=== PATIENT | male | born 1945 | race Two or more races ===

== ENCOUNTER → 2019-12-16 08:33 | Outpatient (BNVA) | payer MEDICARE, SELFPAY | PROVIDERS: PCP Family Medicine; Referring Provider Family Medicine; Visit Provider Nurse Practitioner Gerontology | DX: E11.22 Type 2 diabetes mellitus with diabetic chronic kidney disease (principal); I12.9 Hypertensive chronic kidney disease with stage 1 through stage 4 chronic kidney disease, or unspecified chronic kidney disease; N18.30 Chronic kidney disease, stage 3 unspecified; E78.5 Hyperlipidemia, unspecified; Z79.4 Long term (current) use of insulin | CPT/HCPCS: 82947; 99213 ==

== ENCOUNTER → 2019-12-30 08:23 | Outpatient (BNVA) | payer MEDICARE, SELFPAY | PROVIDERS: PCP Family Medicine; Referring Provider Family Medicine; Visit Provider Nurse Practitioner Gerontology | DX: E11.22 Type 2 diabetes mellitus with diabetic chronic kidney disease (principal); I12.9 Hypertensive chronic kidney disease with stage 1 through stage 4 chronic kidney disease, or unspecified chronic kidney disease; N18.4 Chronic kidney disease, stage 4 (severe); E11.42 Type 2 diabetes mellitus with diabetic polyneuropathy; Z79.4 Long term (current) use of insulin; E78.5 Hyperlipidemia, unspecified | CPT/HCPCS: 82947; 99212 ==

== ENCOUNTER → 2020-01-13 08:10 | Outpatient (BNVA) | payer MEDICARE, SELFPAY | PROVIDERS: PCP Family Medicine; Referring Provider Family Medicine; Visit Provider Nurse Practitioner Gerontology | DX: Z76.89 Persons encountering health services in other specified circumstances (principal) ==

== ENCOUNTER → 2020-02-03 08:24 | Outpatient (BNVA) | payer MEDICARE, MEDICAID, SELFPAY | PROVIDERS: PCP Family Medicine; Visit Provider Nurse Practitioner Gerontology | DX: E11.22 Type 2 diabetes mellitus with diabetic chronic kidney disease (principal); I12.9 Hypertensive chronic kidney disease with stage 1 through stage 4 chronic kidney disease, or unspecified chronic kidney disease; N18.32 Chronic kidney disease, stage 3b; Z79.4 Long term (current) use of insulin; E78.5 Hyperlipidemia, unspecified; L60.8 Other nail disorders | CPT/HCPCS: 82947; 99212 ==

== ENCOUNTER → 2020-02-06 09:42 | Outpatient (BNVA) | payer MEDICARE, SELFPAY | PROVIDERS: PCP Family Medicine; Visit Provider Internal Medicine Gastroenterology | DX: Z13.89 Encounter for screening for other disorder (principal) | CPT/HCPCS: Q3014 ==

== ENCOUNTER → 2020-03-08 08:18 | Outpatient (BNVA) | payer MEDICARE, SELFPAY | PROVIDERS: PCP Family Medicine; Visit Provider Nurse Practitioner Gerontology | DX: E11.21 Type 2 diabetes mellitus with diabetic nephropathy (principal); E11.22 Type 2 diabetes mellitus with diabetic chronic kidney disease; I12.9 Hypertensive chronic kidney disease with stage 1 through stage 4 chronic kidney disease, or unspecified chronic kidney disease; N18.32 Chronic kidney disease, stage 3b; Z79.4 Long term (current) use of insulin; E78.5 Hyperlipidemia, unspecified; L60.8 Other nail disorders | CPT/HCPCS: 99212; Q3014 ==

== ENCOUNTER → 2020-05-03 08:38 | Outpatient (BNVA) | payer MEDICARE, SELFPAY | PROVIDERS: PCP Family Medicine; Visit Provider Nurse Practitioner Gerontology | DX: Z13.89 Encounter for screening for other disorder (principal) | CPT/HCPCS: Q3014 ==

== ENCOUNTER → 2020-07-30 10:46 | Outpatient (BNVA) | payer MEDICARE, SELFPAY | PROVIDERS: PCP Family Medicine; Visit Provider Internal Medicine Gastroenterology | DX: E46 Unspecified protein-calorie malnutrition (principal) | CPT/HCPCS: 99212 ==

== ENCOUNTER → 2020-08-09 08:49 | Outpatient (BNVA) | payer MEDICARE, SELFPAY | PROVIDERS: PCP Family Medicine; Visit Provider Nurse Practitioner Gerontology | DX: E11.21 Type 2 diabetes mellitus with diabetic nephropathy (principal); E11.22 Type 2 diabetes mellitus with diabetic chronic kidney disease; E11.42 Type 2 diabetes mellitus with diabetic polyneuropathy; I12.9 Hypertensive chronic kidney disease with stage 1 through stage 4 chronic kidney disease, or unspecified chronic kidney disease; N18.32 Chronic kidney disease, stage 3b; E78.5 Hyperlipidemia, unspecified; Z79.4 Long term (current) use of insulin | CPT/HCPCS: 82947; 99212 ==

== ENCOUNTER 2020-09-05 16:30 | Emergency (ER) | payer MEDICARE, SELFPAY ==
--- NOTE | ~2020-09-05 | CT_ITS ---
EXAMINATION: CT ABDOMEN AND PELVIS WITHOUT CONTRAST CLINICAL INFORMATION: Left-sided pain. Question stone versus diverticulitis. COMPARISON: Most recent CT abdomen/pelvis dated 04/08/2019. TECHNIQUE: Multidetector volumetric imaging was performed from the superior aspect of the liver through the pubic symphysis. Sagittal and coronal reformatted images were obtained on the technologist's workstation. This CT examination was performed using dose optimization techniques as appropriate, variously including the following: Automated exposure control. Adjustment of mA and/or kV according to patient size (this includes techniques or standardized protocols for targeted exams where dose is matched to indication/reason for exam; i.e. extremities or head). Use of iterative reconstruction technique. DLP: 522 mGy-cm FINDINGS: LUNG BASES: The visualized lung bases are unremarkable. LIVER, GALLBLADDER, AND BILIARY TREE: Hepatomegaly. Hepatic parenchymal hypoattenuation, consistent with steatosis. Normal contour. The gallbladder is completely distended with innumerable tiny stones. No associated inflammatory change. PANCREAS: Atrophic. No parenchymal lesion or associated inflammatory change. SPLEEN: Unremarkable. ADRENAL GLANDS: Unremarkable. KIDNEYS AND URETERS: The kidneys are normal in size, shape, and attenuation. No hydronephrosis, hydroureter, or calculi seen. Simple left upper pole renal cyst measuring 6.4 cm, unchanged. Findings are not clinically significant and no follow up imaging is recommended. No perinephric stranding. BLADDER: Nondistended and unremarkable. GASTROINTESTINAL TRACT: Small, sliding hiatal hernia. Descending and sigmoid colon diverticulosis. Left lower quadrant circumferential wall thickening and mild adjacent stranding, consistent with acute diverticulitis. No extraluminal air or organized fluid collection to suggest perforation or abscess formation. No small or large bowel obstruction. Unremarkable appendix. PERITONEAL CAVITY: No intra-abdominal free air or free fluid. No intra-abdominal mass or organized fluid collection/abscess formation. ABDOMINAL WALL: No significant hernia is appreciated. LYMPH NODES: No significant lymphadenopathy. VASCULAR: No abdominal aortic dilatation or dissection. Scattered atherosclerotic calcifications. PELVIC VISCERA: Prostatomegaly, unchanged. OSSEOUS STRUCTURES: Unremarkable. CT/CT abdomen pelvis wo con IMPRESSION: 1. Acute left lower quadrant descending colon/sigmoid diverticulitis. No evidence of perforation or abscess formation. 2. Small, sliding hiatal hernia. No small or large bowel obstruction. Unremarkable appendix. 3. Additional chronic findings are unchanged.
[2020-09-05 16:43] VITALS: BP 156/76; PULSE 81; RESP 18; TEMP 37.2; O2SAT 97; BMI 28.6
[2020-09-05 17:28] LABS: Hematocrit 39.2 % (42-52); Hemoglobin 12.9 g/dl (14.0-18.0); Mean Corpuscular HGB Conc 32.9 g/dl (31.0-36.0); Mean Corpuscular Hemoglobin 28.5 pg (27.0-33.0); Mean Corpuscular Volume 86.5 fL (80-98); Mean Platelet Volume 10.4 fL (9.4-12.4); Platelet Count 177 X10*3/uL (160-400); Red Blood Count 4.53 X10*6/uL (4.60-5.80); Red Cell Distribution Width 13.8 % (11.0-16.0); White Blood Count 8.8 X10*3/uL (4.8-10.8)
[2020-09-05 17:29] LABS: Glucose Urine UA NEG (NEG); Leukocyte Esterase Urine NEG (NEG); Nitrite Urine NEG (NEG); Specific Gravity - Urine 1.025 (1.005-1.025); Urine Blood NEG (NEG); Urine Ketones NEG (NEG); Urine Protein 2+ MG/DL (NEG-TRACE)
[2020-09-05 17:36] LABS: Appearance Urine CLEAR; Color Urine YELLOW
[2020-09-05 17:42] LABS: RBC Urine 0-2 /HPF (0); Squamous Epithelial Cell Urine 1+ /LPF; WBC Urine 0-2 /HPF (0-4)
[2020-09-05 17:47] LABS: Anion Gap 13 (12-20); Blood Urea Nitrogen 27 mg/dL (9-16); Calcium 9.2 mg/dL (8.4-10.2); Carbon Dioxide 21 mmol/L (22-29); Chloride 110 mmol/L (96-108); Creatinine Clr Calc Pharmacy 31.2; Estimated Glomerular Filt Rate 32; Glucose Random 223 mg/dL (60-115); Potassium 4.4 mmol/L (3.3-5.1); Sodium 140 mmol/L (135-145)
--- NOTE | 2020-09-05 20:35 | ED.ABDPAIN ---
HPI - Abdominal Pain General Chief Complaint: Back Pain/Injury Stated Complaint: ?Sciatica Time Seen by Provider: 09/05/20 20:25 Source: patient Mode of arrival: ambulatory Limitations: no limitations History of Present Illness HPI narrative: Patient with history of diverticulosis kidney stone diabetes complaining of pain in left lower abdomen and left lower back radiating to the left leg for last few days no spinal pain no injury to the back. No nausea no vomiting patient has been eating good having normal bowel movements no blood in the stool Related Data Home Medications Medication Instructions Recorded Confirmed amlodipine 10 mg tablet 10 mg PO DAILY 12/16/19 08/09/20 aspirin 81 mg tablet,delayed 81 mg PO DAILY 12/16/19 08/09/20 release atorvastatin 40 mg tablet 40 mg PO DAILY 12/16/19 08/09/20 chlorthalidone 25 mg tablet 25 mg PO DAILY 12/16/19 08/09/20 losartan 100 mg tablet 100 mg PO DAILY 12/16/19 08/09/20 methylcellulose (laxative) 500 mg 500 mg PO DAILY 12/16/19 08/09/20 tablet metronidazole 500 mg tablet 500 mg PO BID 12/16/19 08/09/20 sucralfate 1 gram tablet 1 g PO BID 12/16/19 08/09/20 metformin 500 mg tablet 500 mg PO BID 02/03/20 08/09/20 Previous Rx's Medication Instructions Recorded insulin lispro 100 unit/mL See Rx Instructions SUBCUT QID #45 06/20/20 subcutaneous pen ml bisacodyl 5 mg tablet,delayed 20 mg PO ONCE 1 Days #4 tab 07/30/20 release polyethylene glycol 3350 17 238 g PO ONCE #238 g 07/30/20 gram/dose oral powder insulin glargine U-300 conc 300 116 unit SUBCUT BEDTIME #13.5 ml 08/09/20 unit/mL (1.5 mL) subcutaneous pen pioglitazone 30 mg tablet 30 mg PO DAILY #30 tab 08/09/20 linagliptin 5 mg tablet 5 mg PO QAM #30 tab 08/31/20 pantoprazole 40 mg tablet,delayed 40 mg PO QAM #30 tab 09/01/20 release amoxicillin-pot clavulanate 1 tab PO BID #20 tab 09/05/20 [Augmentin] oxycodone 5 mg PO Q6H PRN #20 tab 09/05/20 Allergies Allergy/AdvReac Type Severity Reaction Status Date / Time No Known Allergies Allergy Mild N/A Verified 09/05/20 16:43 Review of Systems Review of Systems Constitutional : No Weight loss, No Fever, No Chills ENT/Mouth : No sore throat, No Rhinorrhea Eyes: No Eye Pain, No Swelling Cardiovascular : No Chest Pain, no palpitations Respiratory : No Cough, No Sputum, no shortness of breath Gastrointestinal : no Nausea, No Vomiting, No Diarrhea, + abdominal Pain, no black stools Genitourinary : No Dysuria, No Urinary Frequency Musculoskeletal : No joint pain, No Myalgias, No Joint Swelling Skin : No Skin Lesions, No rash Neuro : No Weakness, No Numbness, No Dizziness, No Headache Psych : No Anxiety/Panic, No Depression Heme/Lymph: No Bruising, No Lymphadenopathy Endocrine : No Polyuria, No Polydipsia All other systems reviewed and are negative Physical Exam Vital Signs: Vital Signs: Last Vital Signs Temp 98.4 F 09/05/20 23:34 Pulse 57 09/05/20 23:34 Resp 18 09/05/20 23:34 BP 136/52 L 09/05/20 23:34 Pulse Ox 96 09/05/20 23:34 Body Mass Index 28.6 Appearance: Alert. Oriented X3. No acute distress. Eyes: PERRLA, No Nystagmus ENT: Pharynx normal. Oral Mucosa moist Neck: Normal inspection. Neck supple. CVS: Normal heart rate and rhythm. Pulses normal. Respiratory: No respiratory distress. Equal air entry bilateral, no wheezing/rales/rhonchi Abdomen: Soft and deep tenderness left lower quadrant rebound tenderness or guarding Bowel sounds are present, no mass palpable, no CVA tenderness Skin: Skin warm and dry. Normal skin color. Normal skin turgor. Back: No focal spinal tenderness sciatic notch tenderness on the left side present SLR positive at 90 degrees right leg Extremities: No lower extremity edema. No calf tenderness Neuro: Oriented X 3. No motor deficit. No sensory deficit.No cerebellar signs , cranial nerves II-XII intact MDM - Abdominal Pain MDM Narrative Medical decision making narrative: Patient with uncomplicated diverticulitis with left sciatica with normal WBC count will give a dose of Zosyn IV and discharge him on Augmentin and pain medication Differential Diagnosis Differential diagnosis: Likely calculus of kidney and diverticulitis Medical Records Attestation: I reviewed the patient's medical records. Lab Data Attestation: I reviewed the patient's lab results. Result diagrams: 09/05/20 17:19 09/05/20 17:18 Labs: Lab Results 09/05/20 09/05/20 09/05/20 Range/Units 17:18 17:19 17:19 WBC 8.8 (4.8-10.8) X10*3/uL RBC 4.53 L (4.60-5.80) X10*6/uL Hgb 12.9 L (14.0-18.0) g/dl Hct 39.2 L (42-52) % MCV 86.5 (80-98) fL MCH 28.5 (27.0-33.0) pg MCHC 32.9 (31.0-36.0) g/dl RDW 13.8 (11.0-16.0) % Plt Count 177 (160-400) X10*3/uL MPV 10.4 (9.4-12.4) fL Absolute Nucleated RBC 0.000 (0.0-0.012) X10*3/uL Nucleated RBC % (auto) 0.0 (0.0-0.2) /100WBC Sodium 140 (135-145) mmol/L Potassium 4.4 (3.3-5.1) mmol/L Chloride 110 H (96-108) mmol/L Carbon Dioxide 21 L (22-29) mmol/L Anion Gap 13 (12-20) BUN 27 H (9-16) mg/dL Creatinine 2.03 H (0.5-1.4) mg/dL Estim Creat Clear Calc 31.2 Estimated GFR 32 Random Glucose 223 H (60-115) mg/dL Calcium 9.2 (8.4-10.2) mg/dL Urine Color YELLOW Urine Appearance CLEAR Urine pH 6.0 (5.0-8.0) Ur Specific [place] 1.025 (1.005-1.025) Urine Protein 2+ H (NEG-TRACE) MG/DL Urine Glucose (UA) NEG (NEG) MG/DL Urine Ketones NEG (NEG) MG/DL Urine Blood NEG (NEG) Urine Nitrite NEG (NEG) Ur Leukocyte Esterase NEG (NEG) Urine RBC 0-2 (0) /HPF Urine WBC 0-2 (0-4) /HPF Ur Squamous Epith Cells 1+ /LPF Urine Bacteria NONE /LPF Discharge Plan Discharge Clinical Impression: Diverticulitis Sciatica Qualifiers: Laterality: left Qualified Code(s): M54.32 - Sciatica, left side Patient Disposition: Home, Self-Care Instructions: Diverticulitis (ED), Sciatica (ED) Additional Instructions: Drink plenty of fluids , have liquids advance as tolerated Take pain medication as advised Antibiotic as advised Report to the ER if increased pain/fever/vomiting/blood in stool Prescriptions: New amoxicillin-pot clavulanate [Augmentin] 875-125 mg tablet 1 tab PO BID Qty: 20 RF: 0 oxycodone 5 mg tablet 5 mg PO Q6H PRN (Reason: Pain (Scale Score 7-10)) Qty: 20 RF: 0 No Action insulin lispro [Humalog KwikPen Insulin] 100 unit/mL insulin pen See Rx Instructions subcut QID Qty: 45 RF: 1 linagliptin [Tradjenta] 5 mg tablet 5 mg PO QAM Qty: 30 RF: 0 pantoprazole 40 mg tablet,delayed release (DR/EC) 40 mg PO QAM Qty: 30 RF: 5 polyethylene glycol 3350 [Miralax] 17 gram/dose powder 238 g PO ONCE Qty: 238 RF: 0 bisacodyl [Dulcolax (bisacodyl)] 5 mg tablet,delayed release (DR/EC) 20 mg PO ONCE 1 Days Qty: 4 RF: 0 losartan 100 mg tablet 100 mg PO DAILY RF: 0 atorvastatin 40 mg tablet 40 mg PO DAILY RF: 0 chlorthalidone 25 mg tablet 25 mg PO DAILY RF: 0 amlodipine 10 mg tablet 10 mg PO DAILY RF: 0 aspirin [Adult Aspirin Regimen] 81 mg tablet,delayed release (DR/EC) 81 mg PO DAILY RF: 0 sucralfate 1 gram tablet 1 g PO BID RF: 0 metronidazole 500 mg tablet 500 mg PO BID RF: 0 Citrucel 500 mg tablet 500 mg PO DAILY RF: 0 metformin 500 mg tablet 500 mg PO BID RF: 0 pioglitazone 30 mg tablet 30 mg PO DAILY Qty: 30 RF: 3 Toujeo SoloStar U-300 Insulin 300 unit/mL (1.5 mL) insulin pen 116 unit subcut BEDTIME Qty: 13.5 RF: 2 PMFSH Past Medical History Medical History BPH (benign prostatic hyperplasia) Carpal tunnel syndrome Cataracts, bilateral Chronic kidney disease, stage 3 Diverticulosis Erectile dysfunction Essential hypertension GERD (gastroesophageal reflux disease) Hyperlipidemia LDL goal <70 Kidney stones 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 Mother Diabetes mellitus Brother Diabetes mellitus Sister Diabetes mellitus Social History Social History Household Members: Spouse and Children Alcohol intake: never Patient Tobacco Use Status: Never used Tobacco Advance Directives: No Advance Directives Information Provided: No
[2020-09-05] MEDS: oxyCODONE HCl Immed Release 5 MG TABLET 10 MG PO (21:11)
[2020-09-05 21:14] VITALS: BP 163/58; PULSE 74; RESP 16; O2SAT 96
[2020-09-05] MEDS: Piperacillin Sodium/Tazobactam 3.375 GM in 0.9 % Sodium Chloride 50 ML IV (23:06)
[2020-09-05 23:34] VITALS: BP 136/52; PULSE 57; RESP 18; TEMP 36.9; O2SAT 96
== END 2020-09-06 00:09 | disposition home or self-care (01) ==
PROVIDERS: Emergency Provider Internal Medicine; PCP Family Medicine
DX: K57.32 Diverticulitis of large intestine without perforation or abscess without bleeding (principal); M54.32 Sciatica, left side; Z79.899 Other long term (current) drug therapy; Z79.82 Long term (current) use of aspirin
CPT/HCPCS: 36415; 74176; 80048; 81001; 85027; 96365; 99284; J2543

== ENCOUNTER → 2020-09-13 14:23 | Outpatient (BNVA) | payer MEDICARE, SELFPAY | PROVIDERS: PCP Family Medicine; Visit Provider Nurse Practitioner Gerontology | DX: E11.65 Type 2 diabetes mellitus with hyperglycemia (principal); E11.21 Type 2 diabetes mellitus with diabetic nephropathy; E11.42 Type 2 diabetes mellitus with diabetic polyneuropathy; E11.22 Type 2 diabetes mellitus with diabetic chronic kidney disease; I12.9 Hypertensive chronic kidney disease with stage 1 through stage 4 chronic kidney disease, or unspecified chronic kidney disease; N18.32 Chronic kidney disease, stage 3b; E78.5 Hyperlipidemia, unspecified; Z79.4 Long term (current) use of insulin; Z79.899 Other long term (current) drug therapy | CPT/HCPCS: 82947; 99212 ==

== ENCOUNTER 2020-10-26 09:40 | Emergency (ER) | payer MEDICARE, SELFPAY ==
[2020-10-26 10:18] VITALS: BP 161/74; PULSE 74; RESP 18; TEMP 36.6; O2SAT 97; BMI 29.7
[2020-10-26] MEDS: Fluorescein Sodium STRIP 1 STRIP EYE-RIGHT (11:13)
[2020-10-26] MEDS: Tetracaine HCl/PF 0.5% Oph Sol 4 ML DROPS 3 DROP EYE-RIGHT (11:14)
--- NOTE | 2020-10-26 11:47 | ED.GENADULT ---
HPI - General Adult General Chief complaint: Eye Problems Stated complaint: eye swelling Time Seen by Provider: 10/26/20 10:45 Source: patient Mode of arrival: ambulatory History of Present Illness HPI narrative: 75-year-old male a past medical history of BPH, cataracts, diverticulosis, GERD, HTN, renal stones, diabetes, HLD, presenting to the ED complaining of right eye redness and blurry vision since yesterday. Reports excessive sneezing the past couple days. Reports eye irritation. Denies known foreign body. Denies no trauma/injury/fall, visual, lightheadedness, nausea/vomiting. Does not were glasses or contacts. Onset (ago): day(s) Related Data Home Medications Medication Instructions Recorded Confirmed amlodipine 10 mg tablet 10 mg PO DAILY 12/16/19 09/13/20 aspirin 81 mg tablet,delayed 81 mg PO DAILY 12/16/19 09/13/20 release (Adult Aspirin Regimen) atorvastatin 40 mg tablet 40 mg PO DAILY 12/16/19 09/13/20 chlorthalidone 25 mg tablet 25 mg PO DAILY 12/16/19 09/13/20 losartan 100 mg tablet 100 mg PO DAILY 12/16/19 09/13/20 methylcellulose (laxative) 500 mg 500 mg PO DAILY 12/16/19 09/13/20 tablet (Citrucel) metronidazole 500 mg tablet 500 mg PO BID 12/16/19 09/13/20 sucralfate 1 gram tablet 1 g PO BID 12/16/19 09/13/20 metformin 500 mg tablet 500 mg PO BID 02/03/20 09/13/20 Previous Rx's Medication Instructions Recorded bisacodyl 5 mg tablet,delayed 20 mg PO ONCE 1 Days #4 tab 07/30/20 release (Dulcolax (bisacodyl)) polyethylene glycol 3350 17 238 g PO ONCE #238 g 07/30/20 gram/dose oral powder (Miralax) pioglitazone 30 mg tablet 30 mg PO DAILY #30 tab 08/09/20 pantoprazole 40 mg tablet,delayed 40 mg PO QAM #30 tab 09/01/20 release amoxicillin 875 mg-potassium 1 tab PO BID #20 tab 09/05/20 clavulanate 125 mg tablet (Augmentin) oxycodone 5 mg tablet 5 mg PO Q6H PRN #20 tab 09/05/20 empagliflozin 10 mg tablet 10 mg PO QAM #30 tab 09/13/20 (Jardiance) insulin glargine U-300 conc 300 110 unit SUBCUT BEDTIME #13.5 ml 09/13/20 unit/mL (1.5 mL) subcutaneous pen (Toujeo SoloStar U-300 Insulin) insulin lispro 100 unit/mL See Rx Instructions SUBCUT QID #45 10/06/20 subcutaneous pen (Humalog KwikPen ml (U-100) Insulin) linagliptin 5 mg tablet (Tradjenta) 5 mg PO QAM #30 tab 10/06/20 erythromycin 5 mg/gram (0.5 %) eye 0.5 inch OPHTHALMIC (EYE) QID 5 10/26/20 ointment Days #3.5 g Allergies Allergy/AdvReac Type Severity Reaction Status Date / Time No Known Allergies Allergy Mild N/A Verified 09/13/20 15:08 Review of Systems Review of Systems: Constitutional: No Fever, No Chills ENT/Mouth: No Ear Pain, No Nasal Congestion, No Hoarseness, No sore throat, + eye irritation,+ eye redness, + blurry vision Cardiovascular: No Chest Pain, No SOB Respiratory: No Cough Gastrointestinal: No Nausea, No Vomiting, No Abdominal pain Genitourinary:, No Dysuria, No Hematuria Musculoskeletal: No joint pain, No Myalgias Skin: No Skin Lesions, No rash Neuro: No Weakness, No Numbness, No Paresthesias Yes all other systems are reviewed and are negative [facility] Past Medical History Attestation statement: The following information was validated with the patient. 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 Mother Diabetes mellitus Brother Diabetes mellitus Sister Diabetes mellitus Social History Social History Household Members: Spouse and Children Alcohol intake: never Patient Tobacco Use Status: Never used Tobacco Advance Directives: No Physical Exam Vital Signs: Vital Signs: Last Vital Signs Temp 98 F 10/26/20 10:18 Pulse 74 10/26/20 10:18 Resp 18 10/26/20 10:18 BP 161/74 H 10/26/20 10:18 Pulse Ox 97 10/26/20 10:18 Body Mass Index 29.7 Const: General: cooperative, healthy appearing and no acute distress Orientation/consciousness: patient oriented x3 Limitations: no limitations HENMT: Head: Yes normal to inspection Ears: hearing grossly normal bilaterally General nose exam: Normal external nose present Face and sinus: Yes normal facial exam Eyes: Other: IOP 17, 16, 14 in the right eye General: appearance normal, both eyes and all related structures Conjunctivae: conjunctival abnormal right subconjunctival hemorrhage Corneas: corneas abnormal on the right fluorescein used and abrasion (@ 5o'clock); Negative for without ulcerations and fluorescein used Pupils: Equal, round and reactive pupils present EOM: EOMs intact bilaterally and no movement deficit Direct Ophthalmoscopy: normal light reflex and no photophobia Neck: Neck: Yes normal visual inspection, Yes no lymphadenopathy and Yes no meningeal signs Resp: Effort & Inspection: normal respiratory effort and no respiratory distress Cardio: Rate: regular rate Skin: Rashes: no rashes Wounds: no wounds Neuro: General: patient oriented x3 and no meningeal signs Cranial nerves: Yes Equal, round and reactive pupils present Gait exam (Neuro): Normal gait present Extrem: General: Yes normal to inspection Medical Decision Making [facility] Narrative Medical decision making narrative: 75-year-old male a past medical history of BPH, cataracts, diverticulosis, GERD, HTN, renal stones, diabetes, HLD, presenting to the ED complaining of right eye redness and blurry vision since yesterday. On exam VS, NAD, physical exam as above consistent with subconjunctival hemorrhage. No evidence of globe rupture or periorbital or orbital cellulitis. Small corneal abrasion appreciated in the right eye. Worrisome signs and symptoms and strict return precautions discussed with patient. Will discharge with erythromycin ointment and discussed ophthalmology follow-up, patient verbalized understanding Discharge Plan Discharge Clinical Impression: Subconjunctival hemorrhage Qualifiers: Laterality: right Qualified Code(s): H11.31 - Conjunctival hemorrhage, right eye Corneal abrasion Qualifiers: Encounter type: initial encounter Laterality: right Qualified Code(s): S05.01XA - Injury of conjunctiva and corneal abrasion without foreign body, right eye, initial encounter Patient Disposition: Home, Self-Care Instructions: Subconjunctival Hemorrhage (ED), Corneal Abrasion (ED) Additional Instructions: You have a small abrasion and your eye, Erythromycin ointment will help with this Avoid any increased pressure to her eyes/excessive sneezing, coughing, that is likely the cause of the bleeding If you develop any visual loss, worsening visual changes, headache, nausea/vomiting please return to the ED Please follow-up with ophthalmology Tiene jana coco?a abrasi?n y mcgraw hasmukh, la pomada de eritromicina le ayudar? con esto. Evite cualquier aumento de presi?n en madeline ojos / estornudos excesivos, tos, que probablemente sea la causa del sangrado. Si desarrolla alguna p?rdida visual, empeoramiento de los cambios visuales, dolor de kellie, n?useas / v?mitos, vuelva al servicio de urgencias. Por favor, daisy un seguimiento con oftalmolog?a. Prescriptions: New erythromycin 5 mg/gram (0.5 %) ointment 0.5 inch ophthalmic (eye) QID 5 Days Qty: 3.5 RF: 0 No Action pantoprazole 40 mg tablet,delayed release (DR/EC) 40 mg PO QAM Qty: 30 RF: 5 insulin lispro [Humalog KwikPen Insulin] 100 unit/mL insulin pen See Rx Instructions subcut QID Qty: 45 RF: 1 Tradjenta 5 mg tablet 5 mg PO QAM Qty: 30 RF: 0 amoxicillin-pot clavulanate [Augmentin] 875-125 mg tablet 1 tab PO BID Qty: 20 RF: 0 oxycodone 5 mg tablet 5 mg PO Q6H PRN (Reason: Pain (Scale Score 7-10)) Qty: 20 RF: 0 polyethylene glycol 3350 [Miralax] 17 gram/dose powder 238 g PO ONCE Qty: 238 RF: 0 bisacodyl [Dulcolax (bisacodyl)] 5 mg tablet,delayed release (DR/EC) 20 mg PO ONCE 1 Days Qty: 4 RF: 0 losartan 100 mg tablet 100 mg PO DAILY RF: 0 atorvastatin 40 mg tablet 40 mg PO DAILY RF: 0 chlorthalidone 25 mg tablet 25 mg PO DAILY RF: 0 amlodipine 10 mg tablet 10 mg PO DAILY RF: 0 aspirin [Adult Aspirin Regimen] 81 mg tablet,delayed release (DR/EC) 81 mg PO DAILY RF: 0 sucralfate 1 gram tablet 1 g PO BID RF: 0 metronidazole 500 mg tablet 500 mg PO BID RF: 0 Citrucel 500 mg tablet 500 mg PO DAILY RF: 0 metformin 500 mg tablet 500 mg PO BID RF: 0 pioglitazone 30 mg tablet 30 mg PO DAILY Qty: 30 RF: 3 Jardiance 10 mg tablet 10 mg PO QAM Qty: 30 RF: 6 Touvanessao SoloStar U-300 Insulin 300 unit/mL (1.5 mL) insulin pen 110 unit subcut BEDTIME Qty: 13.5 RF: 4 Referrals: Rashad Moon [Physician] - 3 days Print Language: Kazakh
== END 2020-10-26 12:10 | disposition home or self-care (01) ==
PROVIDERS: Emergency Provider Emergency Medicine; PCP Family Medicine
DX: H11.31 Conjunctival hemorrhage, right eye (principal); S05.01XA Injury of conjunctiva and corneal abrasion without foreign body, right eye, initial encounter; X58.XXXA Exposure to other specified factors, initial encounter; Y93.9 Activity, unspecified; Y92.9 Unspecified place or not applicable; Y99.9 Unspecified external cause status
CPT/HCPCS: 99283

== ENCOUNTER 2021-01-06 07:20 | Day surgery (SDC) | payer MEDICARE, SELFPAY ==
[2020-12-31 13:08] VITALS: BMI 27.2
--- NOTE | 2021-01-05 11:41 | HO.ANESPROP2 ---
Documented by User: Elaina Ogden NP 01/20/21 14:16 HPI - Anesthesia Eval Consult details Narrative: 75yo M for Colonoscopy [facility] Active Problems Active Problems: All Active Problems (Updated 10/27/20 @ 00:01 by Millie Alvarado) Type 2 diabetes mellitus with diabetic polyneuropathy (Acute) Malnutrition (Acute) Type 2 diabetes mellitus with chronic kidney disease (Acute) Chronic kidney disease, stage 3 (Acute) Essential hypertension (Acute) Hyperlipidemia LDL goal <70 (Acute) Past Medical History Medical History BPH (benign prostatic hyperplasia) Carpal tunnel syndrome Cataracts, bilateral Chronic kidney disease, stage 3 Diverticulosis Erectile dysfunction Essential hypertension GERD (gastroesophageal reflux disease) Hyperlipidemia LDL goal <70 Kidney stones 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 Mother Diabetes mellitus Brother Diabetes mellitus Sister Diabetes mellitus Surgical History Surgical History Hx of colonoscopy Hx of lithotripsy Social History Social History Household Members: Spouse and Children Alcohol intake: never Patient Tobacco Use Status: Never used Tobacco Meds Allergies Allergy/AdvReac Type Severity Reaction Status Date / Time No Known Allergies Allergy Mild N/A Verified 09/13/20 15:08 Home Medications Medication Instructions Recorded Confirmed Last Taken Type amlodipine 10 mg tablet 10 mg PO DAILY 12/16/19 09/13/20 Unknown History aspirin 81 mg tablet,delayed 81 mg PO DAILY 12/16/19 09/13/20 01/05/21 History release (Adult Aspirin Regimen) atorvastatin 40 mg tablet 40 mg PO DAILY 12/16/19 09/13/20 Unknown History chlorthalidone 25 mg tablet 25 mg PO DAILY 12/16/19 09/13/20 Unknown History losartan 100 mg tablet 100 mg PO DAILY 12/16/19 09/13/20 Unknown History methylcellulose (laxative) 500 mg 500 mg PO DAILY 12/16/19 09/13/20 Unknown History tablet (Citrucel) metronidazole 500 mg tablet 500 mg PO BID 12/16/19 09/13/20 Unknown History sucralfate 1 gram tablet 1 g PO BID 12/16/19 09/13/20 Unknown History metformin 500 mg tablet 500 mg PO BID 02/03/20 09/13/20 Unknown History Exam Exam Date and Time: January 05, 2021 1141 Height,Weight and Vital Signs: Height 5 ft 6 in Weight 76.657 kg Pertinent Lab Results Pertinent Lab Results: Laboratory Tests 09/05/20 09/05/20 17:18 17:19 WBC 8.8 Hgb 12.9 L Hct 39.2 L Plt Count 177 Sodium 140 Potassium 4.4 Chloride 110 H Carbon Dioxide 21 L BUN 27 H Creatinine 2.03 H Assessment and Plan Assessment Anesthesia Assessment: Chart Reviewed Documented by User: Aleah De La O MD 01/06/21 08:42 [facility] Past Medical History Medical History BPH (benign prostatic hyperplasia) Carpal tunnel syndrome Cataracts, bilateral Chronic kidney disease, stage 3 Diverticulosis Erectile dysfunction Essential hypertension GERD (gastroesophageal reflux disease) Hyperlipidemia LDL goal <70 Kidney stones 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 Mother Diabetes mellitus Brother Diabetes mellitus Sister Diabetes mellitus Surgical History Surgical History Hx of colonoscopy Hx of lithotripsy History of Problems with Anesthesia: No Social History Social History Household Members: Spouse and Children Alcohol intake: never Patient Tobacco Use Status: Never used Tobacco Meds Allergies Allergy/AdvReac Type Severity Reaction Status Date / Time No Known Allergies Allergy Mild N/A Verified 09/13/20 15:08 Home Medications Medication Instructions Recorded Confirmed Last Taken Type amlodipine 10 mg tablet 10 mg PO DAILY 12/16/19 09/13/20 Unknown History aspirin 81 mg tablet,delayed 81 mg PO DAILY 12/16/19 09/13/20 01/05/21 History release (Adult Aspirin Regimen) atorvastatin 40 mg tablet 40 mg PO DAILY 12/16/19 09/13/20 Unknown History chlorthalidone 25 mg tablet 25 mg PO DAILY 12/16/19 09/13/20 Unknown History losartan 100 mg tablet 100 mg PO DAILY 12/16/19 09/13/20 Unknown History methylcellulose (laxative) 500 mg 500 mg PO DAILY 12/16/19 09/13/20 Unknown History tablet (Citrucel) metronidazole 500 mg tablet 500 mg PO BID 12/16/19 09/13/20 Unknown History sucralfate 1 gram tablet 1 g PO BID 12/16/19 09/13/20 Unknown History metformin 500 mg tablet 500 mg PO BID 02/03/20 09/13/20 Unknown History Exam Airway Mallampati Class: III TM Dist: >3cm Neck ROM: Full Loose/Missing/Broken Teeth: No Heart: RRR Lungs: CTA Assessment and Plan Assessment Anesthesia Assessment: Anesthesia Plan Discussed Final Anesthetic Review History of Problems with Anesthesia: No NPO: Yes ASA Class: III Final Preanesthetic Review: Meds/Allgs Chart Reviewed, Consent Obtained/Reviewed and Anes Risks/Benef Reviewed
[2021-01-06 07:39] VITALS: BMI 26.9
[2021-01-06 07:48] LABS: Glucose, Whole Blood 71 mg/dL (60-115)
[2021-01-06 07:50] VITALS: BP 149/65; PULSE 69; RESP 16; TEMP 35.9; O2SAT 97
--- NOTE | 2021-01-06 07:58 | PC.NURSE ---
IV inserted by Samara Delgado RN
[2021-01-06] MEDS: 0.9 % Sodium Chloride 1,000 ML 50 ML IVCONT (08:14)
--- NOTE | 2021-01-06 08:22 | MHC.SHP ---
Pre-Procedural Eval Section A Date of Service: 01/06/21 Section B Chief Complaint: malnutrition Relevant Family History (Specify if Yes): No Relevant Social History: None Present Medications: see Short Stay Collaborative assessment Medical History: Significant History (BPH (benign prostatic hyperplasia) Carpal tunnel syndrome Cataracts, bilateral Chronic kidney disease, stage 3 Diverticulosis Erectile dysfunction Essential hypertension GERD (gastroesophageal reflux disease) Hyperlipidemia LDL goal <70 Kidney stones Type 2 diabetes mellitus with chronic kidney dise) History of Previous Operations: Relevant previous surgery/procedure and date(s) (lithotripsy) Allergies: Allergies Allergy/AdvReac Type Severity Reaction Status Date / Time No Known Allergies Allergy Mild N/A Verified 09/13/20 15:08 Review of Systems Sugical H&P ROS: Negative: Constitution, Cardiovascular, Respiratory, Neurological, Psychiatric, Hem-Onc, Allergic/Immunologic, Gastrointestinal, Genitourinary, Musculoskeletal, Integumentary, Endocrine and Eyes/Ears/Nose/Throat Exam Surgical H&P Exam: Normal: HEENT, Normal: Heart, Normal: Lungs, Normal: Extremities, Normal: Abdomen, Normal: Skin and Normal: Neurological Plan Diagnosis/Plan: Unchanged I have reviewed the history and physical and performed a pertinent physical examination on my patient. No changes have occurred unless specified.
--- NOTE | 2021-01-06 08:23 | P.BOP_ITS ---
Brief Operative Note Date of Service: 01/06/21 Pre-op diagnosis: weight loss, prior colonoscopy with poor prep Post-op diagnosis: same Procedure: see op note Surgeon: Lorraine Sands MD Anesthesia: MAC Was an [employer] Fuel Injection Servicer used for this Procedure?: No Estimated blood loss (mL): 0 Condition: stable Disposition: PACU
--- NOTE | 2021-01-06 08:23 | W.PM.OPN ---
Operative Note Operative Note Date of Service: 01/06/21 Narrative: Operative Information Procedure Description: Colonoscopy COLONOSCOPY Instrument: Olympus variable stiffness adult scope 190L Colonoscopy Monitoring: Vital signs and clinical assessment, continuous EKG monitoring, Pulse oximetry, Carbon Dioxide monitoring and blood pressure monitoring were done throughout the procedure. Colon withdrawal time was 15 minutes. Procedure: The patient was placed in the left lateral decubitis position and pre-procedure medications were administered. After a digital rectal examination of the ano-rectum, the video colonoscope was inserted into the rectum and advanced through the colon to the cecum/TI. The colonoscope was slowly withdrawn in a retrograde panoramic fashion and the colon mucosa was carefully examined including a retroflexed view of the rectum. Findings and interventions are described below. Procedure Difficulty: easy Findings: Terminal Ileum-normal, bx taken Garza diverticulosis severe thru out whole colon Cecum: 10 mm sessile polyp removed with cold snare, mucosa appeared granular so bx taken Ascending Colon: granular mucosa bx taken Transverse Colon -normal Descending Colon:normal Sigmoid Colon: normal Rectum: Retroflexion with small internal hemorrhoids, grade I Anorectum - normal Colon preparation: [place] Bowel Preparation Scale Right colon; 2 Transverse colon: 2 Left colon; 2 (0 = Unprepared colon segment with mucosa not seen due to solid stool that cannot be cleared. 1 = Portion of mucosa of the colon segment seen, but other areas of the colon segment not well seen due to staining, residual stool and/or opaque liquid. 2 = Minor amount of residual staining, small fragments of stool and/or opaque liquid, but mucosa of colon segment seen well. 3 = Entire mucosa of colon segment seen well with no residual staining, small fragments of stool or opaque liquid) Impression and Post Procedure Diagnosis: polyp internal hemorrhoids diverticular disease Plan: High fiber diet leaflet Avoid straining at stool, epsom salts and sitz bath, anusol supps or cream Repeat Colonoscopy in 5 years if health allows due to polyp or earlier if clinically indicated await bx results, r/o microscopic colitis or eosinophilic or other infiltrative colitis Above findings were reviewed with the patient and relevant handouts were provided if indicated.
[2021-01-06] MEDS: Dextrose 5 % and Lactated Ring 1,000 ML 80 ML IVCONT (08:55)
[2021-01-06 09:25] VITALS: BP 111/62; PULSE 62; RESP 16; TEMP 36.6; O2SAT 98
[2021-01-06 09:40] VITALS: BP 129/78; PULSE 73; RESP 16; TEMP 36.6; O2SAT 97
--- NOTE | 2021-01-06 09:43 | PC.NURSE ---
SITTING UP MARYANN PO FLUIDS
--- NOTE | 2021-01-06 09:45 | PC.NURSE ---
CALLED FOR MANAGER ACTUARIAL AND CALLED FOR HIS RIDE HOME. MD WAS BY BEDSIDE BUT PATIENT WAS SLEEPING.
== END 2021-01-06 10:21 | disposition home or self-care (01) ==
PROVIDERS: PCP Family Medicine; Visit Provider Internal Medicine Gastroenterology
PROC: 0DJD8ZZ Inspection of Lower Intestinal Tract, Via Natural or Artificial Opening Endoscopic (ICD-10-PCS; CPT 45378; principal; 2021-01-06 08:30)
DX: E46 Unspecified protein-calorie malnutrition (principal); R63.4 Abnormal weight loss; Z68.27 Body mass index [BMI] 27.0-27.9, adult; D12.0 Benign neoplasm of cecum; K57.30 Diverticulosis of large intestine without perforation or abscess without bleeding; K64.0 First degree hemorrhoids; K21.9 Gastro-esophageal reflux disease without esophagitis; E11.65 Type 2 diabetes mellitus with hyperglycemia; E11.22 Type 2 diabetes mellitus with diabetic chronic kidney disease; I12.9 Hypertensive chronic kidney disease with stage 1 through stage 4 chronic kidney disease, or unspecified chronic kidney disease; N18.30 Chronic kidney disease, stage 3 unspecified; E78.5 Hyperlipidemia, unspecified; Z79.4 Long term (current) use of insulin; Z79.899 Other long term (current) drug therapy; Z87.442 Personal history of urinary calculi
CPT/HCPCS: 45385; 45380; 82947; 88305

== ENCOUNTER → 2021-04-27 08:52 | Outpatient (BNVA) | payer MEDICARE, SELFPAY | PROVIDERS: PCP Family Medicine; Visit Provider Nurse Practitioner Gerontology | DX: E11.21 Type 2 diabetes mellitus with diabetic nephropathy (principal); E11.42 Type 2 diabetes mellitus with diabetic polyneuropathy; E11.22 Type 2 diabetes mellitus with diabetic chronic kidney disease; I12.9 Hypertensive chronic kidney disease with stage 1 through stage 4 chronic kidney disease, or unspecified chronic kidney disease; N18.32 Chronic kidney disease, stage 3b; E78.5 Hyperlipidemia, unspecified; Z79.4 Long term (current) use of insulin | CPT/HCPCS: 82947; 83036; 99212 ==

== ENCOUNTER 2021-06-01 12:13 | Outpatient (REF) | payer MEDICARE, MEDICAID, SELFPAY ==
--- NOTE | ~2021-06-01 | US_ITS ---
EXAMINATION: US VENOUS ULTRASOUND WITH DOPPLER LOWER EXTREMITY, LEFT CLINICAL INFORMATION: Left leg pain and swelling. COMPARISON: None TECHNIQUE: Ultrasound of the deep veins is performed from the hip to the calf with compression sonography and color and pulse Doppler assessment. Spectral analysis with color-flow imaging is performed. FINDINGS: There is normal venous compression and respiratory variation and augmented flow. The visualized common femoral vein, superficial femoral vein, profunda femoral vein, popliteal vein, and the trifurcation region shows no evidence of deep venous thrombosis. There is no significant popliteal fossa cyst. If the patient's symptoms persist, followup ultrasound in 5 days 7 days might be of value to exclude proximal propagation from a non-visualized calf vein. US/US venous duplex LE LT IMPRESSION: No DVT demonstrated in the left lower extremity.
--- NOTE | ~2021-06-01 | XR_ITS ---
EXAMINATION: XR FOOT, LEFT CLINICAL INFORMATION: Pain COMPARISON: X-ray 03/18/2018 TECHNIQUE: AP, lateral, and oblique views of the left foot. FINDINGS: No visible acute fracture or dislocation. Large enthesophytes at the posterior and plantar aspect of the calcaneus, similar to previous. Alignment is anatomic. Joint spaces are maintained. No abnormal soft tissue calcification. XR/XR foot LT min 3V IMPRESSION: No acute osseous abnormality Large calcaneal enthesophytes
== END 2021-06-01 12:14 | disposition home or self-care (01) ==
LOC: HO.US 12:13
PROVIDERS: Absent Provider Family Medicine; PCP Family Medicine; Visit Provider Emergency Medicine
DX: M79.89 Other specified soft tissue disorders (principal); M79.671 Pain in right foot; M79.675 Pain in left toe(s)
CPT/HCPCS: 73630; 93971

== ENCOUNTER 2021-09-02 10:43 | Emergency (ER) | payer MEDICARE, MEDICAID, SELFPAY ==
--- NOTE | ~2021-09-02 | XR_ITS ---
EXAMINATION: XR CHEST CLINICAL INFORMATION: Cough and vomiting COMPARISON: 10/05/2015 and 04/29/2014 TECHNIQUE: 2 views of the chest were obtained. FINDINGS: No evidence for aspiration pneumonia. Indistinct lower cardiac border unchanged consistent with prominent epicardial fat pads. Chronic bronchial wall thickening. Lung volumes within normal limits. Heart and mediastinum normal. No mass or adenopathy. No edema. A radiopaque foreign body projects in the midline of the lower neck at the T1 level. This is unchanged from 2016 projecting within the anterior soft tissues of the neck. Nonobstructive gas pattern. No free air. Degenerative changes in the right shoulder and spine. No acute fracture. XR/XR chest 2V IMPRESSION: No evidence for aspiration pneumonia. Chronic stable radiopaque foreign body in the anterior soft tissues of the neck above the thoracic inlet.
[2021-09-02 12:15] VITALS: BP 151/77; PULSE 68; RESP 18; TEMP 36.6; O2SAT 97; BMI 29.9
[2021-09-02 12:48] LABS: MANUAL DIFF FLAG NO
[2021-09-02 12:50] LABS: Basophils Percent Auto 0.3 % (0-2); Eosinophils Absolute Auto 0.1 X10*3/uL (0.0-0.4); Eosinophils Percent Auto 0.7 % (0-4); Hematocrit 42.9 % (42.0-52.0); Hemoglobin 13.9 g/dl (14.0-18.0); Imm Gran Abs Auto 0.03 X10*3/uL (0.00-0.03); Imm Gran Pct Auto 0.3 % (0.0-0.4); Lymphocytes Absolute Auto 1.7 X10*3/uL (1.2-4.9); Lymphocytes Percent Auto 19.2 % (20-40); Mean Corpuscular HGB Conc 32.4 g/dl (31.0-36.0); Mean Corpuscular Hemoglobin 27.8 pg (27.0-33.0); Mean Corpuscular Volume 85.8 fL (80.0-98.0); Mean Platelet Volume 10.1 fL (9.4-12.4); Monocytes Absolute Auto 0.5 X10*3/uL (0.1-1.2); Monocytes Percent Auto 5.9 % (2-11); Neutrophils Absolute Auto 6.4 x10*3/uL (2.0-8.3); Neutrophils Percent Auto 73.6 % (45-73); Platelet Count 231 X10*3/uL (160-400); Red Cell Distribution Width 14.5 % (11.0-16.0); White Blood Count 8.7 X10*3/uL (4.8-10.8)
[2021-09-02 13:10] LABS: Alanine Aminotransferase 24 U/L (0-40); Albumin Level 4.4 g/dL (3.5-5.0); Alkaline Phosphatase 82 U/L (39-117); Anion Gap 15 (12-20); Aspartate Amino Transferase 22 U/L (5-37); Bilirubin Direct 0.4 mg/dL (0.0-0.5); Blood Urea Nitrogen 26 mg/dL (9-16); Calcium 9.6 mg/dL (8.4-10.2); Carbon Dioxide 24 mmol/L (22-29); Chloride 108 mmol/L (96-108); Creatinine Clr Calc Pharmacy 33.5; Estimated Glomerular Filt Rate 35; Glucose Random 190 mg/dL (60-115); Lipase 52 U/L (8-78); Potassium 4.6 mmol/L (3.3-5.1); Sodium 142 mmol/L (135-145); Total Protein 7.7 g/dL (6.5-8.0)
[2021-09-02 13:28] LABS: COVID-19 Test Negative (Negative)
[2021-09-02 17:55] LABS: Glucose, Whole Blood 211 mg/dL (60-115)
--- NOTE | 2021-09-02 17:55 | ED.ABDPAIN ---
HPI - Abdominal Pain General Chief Complaint: Abdominal Pain Stated Complaint: Diarrhea Time Seen by Provider: 09/02/21 17:15 Source: patient Mode of arrival: ambulatory Limitations: no limitations History of Present Illness HPI narrative: This is a 75-year-old male presenting to the emergency department with complaints of diarrhea, vomiting, reflux and intermittent abdominal cramping (none at htis time) x2 week. He tells me that the diarrhea got worse yesterday, reports completely liquid bowel movements around every 1/2 hour to an hour, he tells me they are yellow/ brown and loose without blood. Has had like 4 bowel movements today. He also reports that he had 1 episode of vomiting early this morning, he tells me it was thick black vomit, after taking pepto bismol . He tells me he is having reflux that is uncomfortable and intermittent abdominal cramping. Patient reports recent travel to [facility], he tells me that he just got back 3 days ago however symptoms started when he was there. No one else around him is sick. He denies any dietary changes. Tells me he did drink the water there. Denies fevers, chills, chest pain, shortness of breath, headache, dizziness, recent sick contacts, hematemesis, hematochezia MD elicited complaint: abdominal pain Related Data Home Medications Medication Instructions Recorded Confirmed aspirin 81 mg tablet,delayed 81 mg PO DAILY 12/16/19 04/27/21 release (Adult Aspirin Regimen) atorvastatin 40 mg tablet 40 mg PO DAILY 12/16/19 04/27/21 chlorthalidone 25 mg tablet 25 mg PO DAILY 12/16/19 04/27/21 losartan 100 mg tablet 100 mg PO DAILY 12/16/19 04/27/21 methylcellulose (laxative) 500 mg 500 mg PO DAILY 12/16/19 09/13/20 tablet (Citrucel) metronidazole 500 mg tablet 500 mg PO BID 12/16/19 09/13/20 sucralfate 1 gram tablet 1 g PO BID 12/16/19 09/13/20 amlodipine 5 mg tablet 5 mg PO QPM 04/27/21 04/27/21 Previous Rx's Medication Instructions Recorded amoxicillin 875 mg-potassium 1 tab PO BID #20 tabs 09/05/20 clavulanate 125 mg tablet (Augmentin) oxycodone 5 mg tablet 5 mg PO Q6H PRN Pain (Scale Score 09/05/20 7-10) #20 tabs erythromycin 5 mg/gram (0.5 %) eye 0.5 inch ophthalmic (eye) QID 5 10/26/20 ointment days #3.5 grams bisacodyl 5 mg tablet,delayed 20 mg PO ONCE 1 day #4 tabs 01/04/21 release (Dulcolax (bisacodyl)) polyethylene glycol 3350 17 238 g PO ONCE #238 grams 01/04/21 gram/dose oral powder (Miralax) pantoprazole 40 mg tablet,delayed 40 mg PO QAM #30 tabs 03/02/21 release insulin lispro 100 unit/mL See Rx Instructions subcut QID #45 04/27/21 subcutaneous pen (Humalog KwikPen mL (U-100) Insulin) blood sugar diagnostic (Spark DiagnosticsTouch #150 ea 04/28/21 Verio test strips) blood-glucose meter (OneTouch #1 ea 04/28/21 Verio Meter) lancets 33 gauge (OneTouch Delica #200 ea 04/28/21 Lancets) insulin glargine U-300 conc 300 110 unit (0.3667 mL) subcut 05/02/21 unit/mL (1.5 mL) subcutaneous pen BEDTIME #13.5 mL (Toujeo SoloStar U-300 Insulin) empagliflozin 10 mg tablet 10 mg PO QAM #30 tabs 05/06/21 (Jardiance) linagliptin 5 mg tablet (Tradjenta) 5 mg PO QAM #30 tabs 05/06/21 pioglitazone 30 mg tablet 30 mg PO DAILY #30 tabs 05/06/21 loperamide 2 mg capsule (Imodium 2 mg PO Q6H PRN loose stool #14 09/02/21 A-D) caps Allergies Allergy/AdvReac Type Severity Reaction Status Date / Time No Known Allergies Allergy Mild N/A Verified 09/02/21 12:20 Review of Systems Review of Systems Constitutional : No Weight loss, No Fever, No Chills, No Fatigue, No Malaise ENT/Mouth : No sore throat, No Rhinorrhea Eyes: No Eye Pain, No Swelling, No Redness Cardiovascular : No Chest Pain, No SOB, No Dyspnea on Exertion, No Orthopnea, No Edema, No Palpitations Respiratory : No Cough, No Sputum, No Wheezing Gastrointestinal : No Nausea, No Vomiting, No Diarrhea, No Constipation, No abdominal Pain, No Hematochezia, No Melena Genitourinary : No Dysuria, No Urinary Frequency, No Hematuria, Musculoskeletal : No joint pain, No Myalgias, No Joint Swelling Skin : No Skin Lesions, No rash Neuro : No Weakness, No Numbness, No Dizziness, No Headache Psych : No Anxiety/Panic, No Depression All other systems reviewed and are negative Yes all other systems are reviewed and are negative [facility] Past Medical History Attestation statement: The following information was validated with the patient. 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 Mother Diabetes mellitus Brother Diabetes mellitus Sister Diabetes mellitus Social History Social History Household Members: Spouse and Children Alcohol intake: never Patient Tobacco Use Status: Never used Tobacco Advance Directives: No Advance Directives Information Provided: No Physical Exam ED Vital Signs: Vital Signs - 24 hr 09/02/21 12:15 09/02/21 18:30 Temperature 97.8 F Pulse Rate 68 70 Respiratory Rate 18 20 Blood Pressure 151/77 H 141/61 H Pulse Oximetry 97 96 Oxygen Delivery Method Room Air Room Air BMI result Body Mass Index 29.9 Vital signs stable Appearance: Alert.? Oriented X3.? No acute distress.? Head: Normocephalic, atraumatic, no step-offs or deformities Eyes: Pupils equal, round and reactive to light.? ENT: Pharynx normal.? Neck: Normal inspection.? Neck supple.? CVS: Normal heart rate and rhythm.? Pulses normal.? Respiratory: No respiratory distress.? Breath sounds normal.? Abdomen: Soft and nontender.? Negative Johnson's, McBurney's point, Rovsing Skin: Skin warm and dry.? Normal skin color.? Normal skin turgor.? Extremities: No lower extremity edema.? No calf ttp. 5/5 strength to bilateral upper and lower extremities Neuro: Oriented X 3.? No motor deficit.? No sensory deficit. CN 2-12 intact Course Reevaluation(s) Reevaluation #1: Patient's CBC within normal limits. Chemistry with a slightly elevated BUN and creatinine, patient was hydrated, however, patient's BUN and creatinine chronically elevated. No electrolyte abnormalities requiring intervention. Stool studies are pending. Patient is tolerating p.o. without nausea, vomiting or diarrhea. He reports relief after Imodium. Stool studies have been sent and he will be called with results. Patient will be discharged home with GI follow-up. Advised him to return new or worsening symptoms. At time of discharge patient tells me he feels okay, he tells me he is having some reflux which he gets sometimes. However he tells me he feels better than he did when he 1st arrived. Time: 22:34 MDM - Abdominal Pain MDM Narrative Medical decision making narrative: 1729 75-year-old male presents with nausea, diarrhea and intermittent abdominal cramping x2 weeks, started while he was traveling. No sick contacts. Tells me he was drinking water where he was traveling Physical examination benign. Abdomen is not tender to palpation. Vital signs are stable and patient appears well appearing, nontoxic. Likely traveler's diarrhea. Unlikely acute abdomen, pancreatitis, cholecystitis, appendicitis or diverticulitis as there is no tenderness to palpation of abdomen. Will rule out electrolyte abnormalities. Plan at this time is basic labs, urine, stool samples. Patient will be given Imodium, and Maalox for his gastric reflux. Medical Records Attestation: I reviewed the patient's medical records. Lab Data Attestation: I reviewed the patient's lab results. Result diagrams: 09/02/21 12:25 09/02/21 12:25 Labs: Lab Results 09/02/21 09/02/21 09/02/21 Range/Units 12:25 12:25 13:02 WBC 8.7 (4.8-10.8) X10*3/uL RBC 5.00 (4.60-5.80) X10*6/uL Hgb 13.9 L (14.0-18.0) g/dl Hct 42.9 (42.0-52.0) % MCV 85.8 (80.0-98.0) fL MCH 27.8 (27.0-33.0) pg MCHC 32.4 (31.0-36.0) g/dl RDW 14.5 (11.0-16.0) % Plt Count 231 (160-400) X10*3/uL MPV 10.1 (9.4-12.4) fL Immature Gran % (Auto) 0.3 (0.0-0.4) % Neut % (Auto) 73.6 H (45-73) % Lymph % (Auto) 19.2 L (20-40) % [place] % (Auto) 5.9 (2-11) % Eos % (Auto) 0.7 (0-4) % Baso % (Auto) 0.3 (0-2) % Lymph # (Auto) 1.7 (1.2-4.9) X10*3/uL [place] # (Auto) 0.5 (0.1-1.2) X10*3/uL Eos # (Auto) 0.1 (0.0-0.4) X10*3/uL Baso # (Auto) 0.0 (0.0-0.2) X10*3/uL Abs Immat Gran (auto) 0.03 (0.00-0.03) X10*3/uL Absolute Neuts (auto) 6.4 (2.0-8.3) x10*3/uL Absolute Nucleated RBC 0.000 (0.0-0.012) X10*3/uL Nucleated RBC % (auto) 0.0 (0.0-0.2) /100WBC Sodium 142 (135-145) mmol/L Potassium 4.6 (3.3-5.1) mmol/L Chloride 108 (96-108) mmol/L Carbon Dioxide 24 (22-29) mmol/L Anion Gap 15 (12-20) BUN 26 H (9-16) mg/dL Creatinine 1.90 H (0.5-1.4) mg/dL Estim Creat Clear Calc 33.5 Estimated GFR 35 POC Glucose (60-115) mg/dL Random Glucose 190 H (60-115) mg/dL Calcium 9.6 (8.4-10.2) mg/dL Total Bilirubin 1.0 (0.0-1.0) mg/dL Direct Bilirubin 0.4 (0.0-0.5) mg/dL AST 22 (5-37) U/L ALT 24 (0-40) U/L Alkaline Phosphatase 82 (39-117) U/L Total Protein 7.7 (6.5-8.0) g/dL Albumin 4.4 (3.5-5.0) g/dL Lipase 52 (8-78) U/L COVID-19 (JAY) Negative (Negative) COVID-19 Clin Com See Note 09/02/21 09/02/21 Range/Units 17:51 18:46 WBC (4.8-10.8) X10*3/uL RBC (4.60-5.80) X10*6/uL Hgb (14.0-18.0) g/dl Hct (42.0-52.0) % MCV (80.0-98.0) fL MCH (27.0-33.0) pg MCHC (31.0-36.0) g/dl RDW (11.0-16.0) % Plt Count (160-400) X10*3/uL MPV (9.4-12.4) fL Immature Gran % (Auto) (0.0-0.4) % Neut % (Auto) (45-73) % Lymph % (Auto) (20-40) % [place] % (Auto) (2-11) % Eos % (Auto) (0-4) % Baso % (Auto) (0-2) % Lymph # (Auto) (1.2-4.9) X10*3/uL [place] # (Auto) (0.1-1.2) X10*3/uL Eos # (Auto) (0.0-0.4) X10*3/uL Baso # (Auto) (0.0-0.2) X10*3/uL Abs Immat Gran (auto) (0.00-0.03) X10*3/uL Absolute Neuts (auto) (2.0-8.3) x10*3/uL Absolute Nucleated RBC (0.0-0.012) X10*3/uL Nucleated RBC % (auto) (0.0-0.2) /100WBC Sodium (135-145) mmol/L Potassium (3.3-5.1) mmol/L Chloride (96-108) mmol/L Carbon Dioxide (22-29) mmol/L Anion Gap (12-20) BUN (9-16) mg/dL Creatinine (0.5-1.4) mg/dL Estim Creat Clear Calc Estimated GFR POC Glucose 211 H 171 H (60-115) mg/dL Random Glucose (60-115) mg/dL Calcium (8.4-10.2) mg/dL Total Bilirubin (0.0-1.0) mg/dL Direct Bilirubin (0.0-0.5) mg/dL AST (5-37) U/L ALT (0-40) U/L Alkaline Phosphatase (39-117) U/L Total Protein (6.5-8.0) g/dL Albumin (3.5-5.0) g/dL Lipase (8-78) U/L COVID-19 (JAY) (Negative) COVID-19 Clin Com Critical Care Time Critical Care Time Critical Care Time: No Discharge Plan Discharge Clinical Impression: Diarrhea Patient Disposition: Home, Self-Care Instructions: Acute Diarrhea (ED), GI (Gastrointestinal) Soft Diet (ED) Additional Instructions: Take your medications as prescribed. If you were prescribed antibiotics today, it is important that you take your medication to their entirety, do not skip any doses, do not finish them early. Follow-up with your primary care provider this week. Return to the emergency department with new or worsening symptoms. Such as fevers, chills, chest pain, shortness of breath, nausea, vomiting, dizziness, headache, vision changes, lethargy In case of emergency call 911 Prescriptions: New loperamide [Imodium A-D] 2 mg capsule 2 mg PO Q6H PRN (Reason: loose stool) Qty: 14 0RF No Action bisacodyl [Dulcolax (bisacodyl)] 5 mg tablet,delayed release (/EC) 20 mg PO ONCE 1 Days Qty: 4 0RF Rx Instructions: take at 6 pm day before colonoscopy polyethylene glycol 3350 [Miralax] 17 gram/dose powder 238 g PO ONCE Qty: 238 0RF Rx Instructions: mix full container with 64 ounces of gatorade (no sugar version) for colonoscopy prep pantoprazole 40 mg tablet,delayed release (DR/EC) 40 mg PO QAM Qty: 30 5RF (DME) blood-glucose meter [OneTouch Verio Meter] [facility] [place] See Rx Instructions .ROUTE .MEDSUPPLY Qty: 1 0RF Rx Instructions: As directed 4x/day (DME) OneTouch Verio test strips Strip See Rx Instructions .ROUTE .MEDSUPPLY Qty: 150 11RF Rx Instructions: 4 x/day (DME) lancets [OneTouch Delica Lancets] 33 gauge [facility] See Rx Instructions .ROUTE .MEDSUPPLY Qty: 200 10RF Rx Instructions: four times a day Toujeo SoloStar U-300 Insulin 300 unit/mL (1.5 mL) insulin pen 110 unit subcut BEDTIME Qty: 13.5 4RF pioglitazone 30 mg tablet 30 mg PO DAILY Qty: 30 4RF Tradjenta 5 mg tablet 5 mg PO QAM Qty: 30 4RF Jardiance 10 mg tablet 10 mg PO QAM Qty: 30 4RF amoxicillin-pot clavulanate [Augmentin] 875-125 mg tablet 1 tab PO BID Qty: 20 0RF oxycodone 5 mg tablet 5 mg PO Q6H PRN (Reason: Pain (Scale Score 7-10)) Qty: 20 0RF erythromycin 5 mg/gram (0.5 %) ointment 0.5 inch ophthalmic (eye) QID 5 Days Qty: 3.5 0RF losartan 100 mg tablet 100 mg PO DAILY atorvastatin 40 mg tablet 40 mg PO DAILY chlorthalidone 25 mg tablet 25 mg PO DAILY aspirin [Adult Aspirin Regimen] 81 mg tablet,delayed release (DR/EC) 81 mg PO DAILY sucralfate 1 gram tablet 1 g PO BID metronidazole 500 mg tablet 500 mg PO BID Citrucel 500 mg tablet 500 mg PO DAILY amlodipine 5 mg tablet 5 mg PO QPM insulin lispro [Humalog KwikPen Insulin] 100 unit/mL insulin pen See Rx Instructions subcut QID Qty: 45 4RF Rx Instructions: 45 units with breakfast, lunch 50 units dinner, 10 units with snack subcut 4 times a day; Referrals: Natacha Olivas MD [Primary Care Provider] - 2 days Lorraine Sands MD [Physician] - 3 days
[2021-09-02] MEDS: PHENobarb/Hyoscy/Atropine/Scop 10 ML ELIXIR PO (18:29)
[2021-09-02] MEDS: Magnesium Hydrox/Alum Hydrox 30 ML ORAL.SUSP PO (18:29)
[2021-09-02 18:30] VITALS: BP 141/61; PULSE 70; RESP 20; O2SAT 96
--- NOTE | 2021-09-02 18:38 | PC.NURSE ---
awaiting freelance interpreter/translator to complete assessment with patient, vitals currently stable
[2021-09-02 18:50] LABS: Glucose, Whole Blood 171 mg/dL (60-115)
[2021-09-02] MEDS: 0.9 % Sodium Chloride 1,000 ML 999 ML IV (22:31)
[2021-09-02] MEDS: Loperamide HCl 2 MG CAPSULE PO (22:34)
[2021-09-03 00:09] LABS: Appearance Urine HAZY; Color Urine STRAW; Glucose Urine UA >=1000 MG/DL (NEG); Leukocyte Esterase Urine NEG (NEG); Nitrite Urine NEG (NEG); PH 5.5 (5.0-8.0); UACC Culture Trigger NO; Urine Blood TRACE (NEG); Urine Ketones NEG (NEG); Urine Protein 1+ MG/DL (NEG-TRACE)
[2021-09-03 00:20] LABS: Bacteria Urine TRACE /LPF; RBC Urine 0-2 /HPF (0); Squamous Epithelial Cell Urine TRACE /LPF; WBC Urine 0 /HPF (0-4)
[2021-09-03 09:42] LABS: Campylobacter Not Detected (Not Detect.); E. coli EAEC Detected (Not Detect.); Plesiomonas shigelloides Not Detected (Not Detect.); Salmonella Not Detected (Not Detect.); Vibrio Not Detected (Not Detect.); Vibrio Cholerae Not Detected (Not Detect.); Yersinia enterocolitica Not Detected (Not Detect.)
[2021-09-03 09:43] LABS: Adenovirus F 40/41 Not Detected (Not Detect.); Astrovirus Not Detected (Not Detect.); Cryptosporidium Not Detected (Not Detect.); Cyclospora cayetanensis Not Detected (Not Detect.); E. coli EPEC Detected (Not Detect.); E. coli ETEC Detected (Not Detect.); E. coli STEC Not Detected (Not Detect.); Entamoeba histolytica Not Detected (Not Detect.); Giardia lamblia Not Detected (Not Detect.); Norovirus GI/GII Not Detected (Not Detect.); Rotavirus A Not Detected (Not Detect.); Sapovirus Not Detected (Not Detect.); Shigella sp./EIEC Not Detected (Not Detect.)
== END 2021-09-03 00:49 | disposition home or self-care (01) ==
PROVIDERS: Physician Assistant; Emergency Provider Student in an Organized Health Care Education/Training Program; PCP Family Medicine
DX: R19.7 Diarrhea, unspecified (principal); A04.4 Other intestinal Escherichia coli infections; K21.9 Gastro-esophageal reflux disease without esophagitis; I12.9 Hypertensive chronic kidney disease with stage 1 through stage 4 chronic kidney disease, or unspecified chronic kidney disease; E11.22 Type 2 diabetes mellitus with diabetic chronic kidney disease; N18.30 Chronic kidney disease, stage 3 unspecified; E78.5 Hyperlipidemia, unspecified; Z79.82 Long term (current) use of aspirin; Z79.02 Long term (current) use of antithrombotics/antiplatelets; Z79.899 Other long term (current) drug therapy; Z79.4 Long term (current) use of insulin; Z20.822 Contact with and (suspected) exposure to COVID-19
CPT/HCPCS: 36415; 71046; 80048; 80076; 81001; 82947; 83690; 85025; 87507; 87635; 96360; 99284

== ENCOUNTER → 2021-09-26 09:58 | Outpatient (BNVA) | payer MEDICARE, MEDICAID, SELFPAY | PROVIDERS: PCP Family Medicine; Referring Provider Family Medicine; Visit Provider Internal Medicine Gastroenterology | DX: K21.9 Gastro-esophageal reflux disease without esophagitis (principal); K22.70 Barrett's esophagus without dysplasia | CPT/HCPCS: 99212 ==

== ENCOUNTER 2021-10-05 03:55 | Emergency (ER) | payer MEDICARE, MEDICAID, SELFPAY ==
--- NOTE | ~2021-10-05 | CT_ITS ---
EXAMINATION: CT ABDOMEN AND PELVIS WITHOUT CONTRAST CLINICAL INFORMATION: Abdominal pain. COMPARISON: 09/05/2020 TECHNIQUE: Multidetector volumetric imaging was performed from the superior aspect of the liver through the pubic symphysis. Sagittal and coronal reformatted images were obtained on the technologist's workstation. This CT examination was performed using dose optimization techniques as appropriate, variously including the following: *Automated exposure control *Adjustment of mA and/or kV according to patient size (this includes techniques or standardized protocols for targeted exams where dose is matched to indication/reason for exam; i.e. extremities or head) *Use of iterative reconstruction technique DLP: 634 mGy-cm FINDINGS: LUNG BASES: Bibasilar atelectasis. The visualized cardiac structures are unremarkable. LIVER, GALLBLADDER, AND BILIARY TREE: The liver is normal in size, shape, and attenuation. No focal hepatic lesion or biliary ductal dilatation is present. Multiple small stones within the gallbladder lumen, half filling the gallbladder. No wall thickening or inflammation. No common bile duct stones seen. Cannot exclude a stone in the cystic duct. PANCREAS: Unremarkable. SPLEEN: Unremarkable. ADRENAL GLANDS: Unremarkable. KIDNEYS AND URETERS: The kidneys are normal in size, shape, and attenuation. No hydronephrosis, hydroureter, or calculi seen. Symmetric perinephric stranding. Exophytic left upper pole simple renal cyst. No follow-up imaging recommended. BLADDER: Unremarkable. GASTROINTESTINAL TRACT: The stomach is unremarkable. Normal caliber small bowel. No obstruction. Normal appendix. There is diffuse colonic diverticulosis. Mild inflammation adjacent to the descending colon may represent early diverticulitis. No free air or fluid collection. ABDOMINAL WALL: No significant hernia is appreciated. LYMPH NODES: Normal. VASCULAR: Normal caliber aorta with mild atherosclerotic calcification. PELVIC VISCERA: Enlarged prostate measuring 5.6 cm. The seminal vesicles are unremarkable. OSSEOUS STRUCTURES: No acute or suspicious osseous abnormality. Mild degenerative changes of the spine. Bilateral L5 pars defects. Mild degenerative changes of the hips. CT/CT abdomen pelvis wo con IMPRESSION: 1. Diffuse colonic diverticulosis. Mild inflammation adjacent to the descending colon, concerning for early diverticulitis. 2. Multiple small stones within the gallbladder lumen. No inflammation of the gallbladder is seen. Cannot exclude stones in the cystic duct. No common bile duct stone. Fleischner guidelines were followed.
[2021-10-05 04:01] VITALS: BP 162/61; PULSE 69; RESP 16; TEMP 36.6; O2SAT 97; BMI 29.9
[2021-10-05 04:10] LABS: MANUAL DIFF FLAG NO
[2021-10-05 04:11] LABS: Basophils Percent Auto 0.3 % (0-2); Eosinophils Absolute Auto 0.2 X10*3/uL (0.0-0.4); Eosinophils Percent Auto 2.4 % (0-4); Hematocrit 39.7 % (42.0-52.0); Imm Gran Abs Auto 0.03 X10*3/uL (0.00-0.03); Imm Gran Pct Auto 0.4 % (0.0-0.4); Lymphocytes Absolute Auto 2.4 X10*3/uL (1.2-4.9); Lymphocytes Percent Auto 34.6 % (20-40); Mean Corpuscular HGB Conc 32.7 g/dl (31.0-36.0); Mean Corpuscular Hemoglobin 28.1 pg (27.0-33.0); Mean Corpuscular Volume 85.7 fL (80.0-98.0); Mean Platelet Volume 9.8 fL (9.4-12.4); Monocytes Absolute Auto 0.7 X10*3/uL (0.1-1.2); Monocytes Percent Auto 10.1 % (2-11); Neutrophils Absolute Auto 3.6 x10*3/uL (2.0-8.3); Neutrophils Percent Auto 52.2 % (45-73); Platelet Count 155 X10*3/uL (160-400); Red Blood Count 4.63 X10*6/uL (4.60-5.80); Red Cell Distribution Width 14.6 % (11.0-16.0); White Blood Count 6.8 X10*3/uL (4.8-10.8)
--- NOTE | 2021-10-05 04:29 | PC.NURSE ---
Addendum entered by Marilin Ruiz RN 10/05/21 04:35: Pt reports pain is radiating into the back. Pt is estonian speaking only. Original Note: Pt is stating belly pain that started at 2AM. No nausea or vomiting. Stated all bowel movements and voiding were normal before he went to sleep. The pain has gotten a lot worse over the last 2 hours. Pt travelled two weeks ago where he was exposed to a bacteria that caused chest pain, diarrhea, and vomiting. Pt was seen and treated for this at [facility] 2 weeks ago. Pt did not have this belly pain with that illness.
[2021-10-05 04:31] LABS: Alanine Aminotransferase 14 U/L (0-40); Albumin Level 4.2 g/dL (3.5-5.0); Alkaline Phosphatase 62 U/L (39-117); Anion Gap 15 (12-20); Aspartate Amino Transferase 15 U/L (5-37); Bilirubin Direct 0.3 mg/dL (0.0-0.5); Bilirubin Total 0.5 mg/dL (0.0-1.0); Blood Urea Nitrogen 34 mg/dL (9-16); Calcium 9.1 mg/dL (8.4-10.2); Carbon Dioxide 23 mmol/L (22-29); Chloride 108 mmol/L (96-108); Creatinine Clr Calc Pharmacy 27.4; Estimated Glomerular Filt Rate 28; Glucose Random 121 mg/dL (60-115); Lipase 37 U/L (8-78); Sodium 142 mmol/L (135-145); Total Protein 7.4 g/dL (6.5-8.0)
--- NOTE | 2021-10-05 04:38 | ED_ITS ---
HPI - General Adult General Chief complaint: Abdominal Pain Stated complaint: abdominal & back pain Time Seen by Provider: 10/05/21 04:34 Source: patient Limitations: no limitations History of Present Illness HPI narrative: This is a 75-year-old male with history of type 2 diabetes, chronic kidney disease stage 3, essential hypertension, complaints of abdominal pain that began about 3-4 hours ago. Pain goes through to his back. Pain is moderately severe, in his mid abdomen. Patient denies any nausea vomiting. He denies any constip ation or diarrhea. Denies any dysuria or urinary frequency. The patient notes about a month ago he had had vomiting diarrhea after it traveled to the [facility] [place], was thought to have traveler's diarrhea. Patient denies any fever Related Data Home Medications Medication Instructions Recorded Confirmed aspirin 81 mg tablet,delayed 81 mg PO DAILY 12/16/19 04/27/21 release (Adult Aspirin Regimen) atorvastatin 40 mg tablet 40 mg PO DAILY 12/16/19 04/27/21 chlorthalidone 25 mg tablet 25 mg PO DAILY 12/16/19 04/27/21 losartan 100 mg tablet 100 mg PO DAILY 12/16/19 04/27/21 amlodipine 5 mg tablet 10 mg PO QPM 09/26/21 carvedilol 3.125 mg tablet 3.125 mg PO BID 09/26/21 Previous Rx's Medication Instructions Recorded erythromycin 5 mg/gram (0.5 %) eye 0.5 inch ophthalmic (eye) QID 5 10/26/20 ointment days #3.5 grams blood sugar diagnostic (OneTouch #150 ea 04/28/21 Verio test strips) blood-glucose meter (OneTouch #1 ea 04/28/21 Verio Meter) lancets 33 gauge (OneTouch Delica #200 ea 04/28/21 Lancets) insulin glargine U-300 conc 300 110 unit (0.3667 mL) subcut 05/02/21 unit/mL (1.5 mL) subcutaneous pen BEDTIME #13.5 mL (Isidra Valentine U-300 Insulin) loperamide 2 mg capsule (Imodium 2 mg PO Q6H PRN loose stool #14 09/02/21 A-D) caps empagliflozin 10 mg tablet 10 mg PO QAM #30 tabs 09/19/21 (Jardiance) insulin lispro 100 unit/mL See Rx Instructions subcut QID #45 09/19/21 subcutaneous pen (Humalog KwikPen mL (U-100) Insulin) pantoprazole 40 mg tablet,delayed 40 mg PO DAILY #90 tabs 09/26/21 release amoxicillin 875 mg-potassium 1 tab PO Q12H #14 tabs 10/05/21 clavulanate 125 mg tablet tramadol 50 mg tablet 50 mg PO Q6H PRN pain #12 tabs 10/05/21 Allergies Allergy/AdvReac Type Severity Reaction Status Date / Time No Known Allergies Allergy Mild N/A Verified 09/26/21 10:37 Review of Systems Review of Systems: Yes all other systems are reviewed and are negative Constitutional: Constitutional: Reports as per HPI and Denies fever(s) Eyes: Eyes: Reports as per HPI and Reports no additional eye complaints ENT: Reports system reviewed and no additional complaints, except as documented, Reports as per HPI, Denies nasal congestion, Denies nasal discharge and Denies sore throat Cardiovascular: Cardiovascular: Reports as per HPI, Denies chest pain and Denies dyspnea Respiratory: Respiratory: Reports as per HPI, Denies cough and Denies dyspnea Gastrointestinal: Gastrointestinal: Reports as per HPI, Reports abdominal pain, Denies diarrhea and Denies vomiting Genitourinary: Genitourinary: Reports as per HPI, Denies hematuria, Denies dysuria and Denies urinary frequency Musculoskeletal: Musculoskeletal: Reports no additional musculoskeletal complaints and Denies numbness Integumentary/Breasts: Skin/Breast: Reports as per HPI and Denies rash Neurologic: Reports as per HPI, Denies focal weakness and Denies numbness Psychiatric: Psychiatric: Reports no additional psychiatric complaints and Reports as per HPI Endocrine: Endocrine: Reports no additional endocrine complaints and Reports as per HPI Hematologic/Lymphatic: Hematologic/Lymphatic: Reports no additional hematologic/lymphatic complaints, Reports as per HPI and Reports other (No peripheral edema) [facility] Past Medical History Medical History BPH (benign prostatic hyperplasia) Carpal tunnel syndrome Cataracts, bilateral Chronic kidney disease, stage 3 Diverticulosis Erectile dysfunction Essential hypertension GERD (gastroesophageal reflux disease) Hyperlipidemia LDL goal <70 Kidney stones 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 Mother Diabetes mellitus Brother Diabetes mellitus Sister Diabetes mellitus Social History Social History Household Members: Spouse and Children Alcohol intake: never Patient Tobacco Use Status: Never used Tobacco Use of substances other than those prescribed or required for medical reasons: No Advance Directives: No Physical Exam ED Vital Signs: Vital Signs - 24 hr 10/05/21 04:01 10/05/21 04:48 Temperature 98 F Pulse Rate 69 66 Respiratory Rate 16 12 Blood Pressure 162/61 H 162/61 H Pulse Oximetry 97 98 Oxygen Delivery Method Room Air Room Air BMI result Body Mass Index 29.9 Const General: no acute distress Orientation/consciousness: patient oriented x3 HENMT Head: Yes normal to inspection General nose exam: Normal external nose present Mouth: moist mucous membranes Throat: Yes posterior oropharynx normal, Yes tonsils normal and Yes uvula midline Eyes Eyelids: Yes eyelids normal Conjunctivae: conjunctivae normal Pupils: Equal, round and reactive pupils present Neck Neck: Yes supple Resp Effort & Inspection: normal respiratory effort Auscultation: clear to auscultation bilaterally Cardio Rate: regular rate Rhythm: regular rhythm Heart sounds: S1 normal heart sound present, S2 normal heart sound present, no gallops, no murmurs and no rubs GI Other: Abdomen is somewhat protuberant, tender to palpation diffusely, tender to percussion. Bowel sounds normal. Inspection: No distended Palpation (GI): Soft to palpation and nontender Auscultation: normal bowel sounds Skin General skin exam: other (Warm and dry) Neuro General: patient oriented x3 and CN's II-XI intact bilaterally Cranial nerves: Yes Equal, round and reactive pupils present Extrem General: Yes no pedal edema Psych Affect: normal affect Attitude: cooperative Medical Decision Making MDM Narrative Medical decision making narrative: Patient with acute onset of abdominal pain this morning. Patient initially had moderate diffuse tenderness, on reexamination seemed to have more prominent tenderness on the left. Patient is afebrile. White blood cell count is normal. Creatinine is a little elevated over baseline that the patient has not had any vomiting or diarrhea. Patient was hydrated with normal saline 1 L IV, was given 4 mg IV of morphine, Zofran 4 mg IV, with improvement in his symptoms. Patient is being given Augmentin 875 mg p.o. will be started on Augmentin identified mg p.o. b.i.d. for 7 days for early diverticulitis. Patient can follow-up with his primary care physician Lab Data Lab results reviewed: Yes I reviewed the patient's lab results. Result diagrams: 10/05/21 04:05 10/05/21 04:06 Labs: Lab Results 10/05/21 10/05/21 10/05/21 Range/Units 04:05 04:06 05:07 WBC 6.8 (4.8-10.8) X10*3/uL RBC 4.63 (4.60-5.80) X10*6/uL Hgb 13.0 L (14.0-18.0) g/dl Hct 39.7 L (42.0-52.0) % MCV 85.7 (80.0-98.0) fL MCH 28.1 (27.0-33.0) pg MCHC 32.7 (31.0-36.0) g/dl RDW 14.6 (11.0-16.0) % Plt Count 155 L D (160-400) X10*3/uL MPV 9.8 (9.4-12.4) fL Immature Gran % (Auto) 0.4 (0.0-0.4) % Neut % (Auto) 52.2 (45-73) % Lymph % (Auto) 34.6 (20-40) % [place] % (Auto) 10.1 (2-11) % Eos % (Auto) 2.4 (0-4) % Baso % (Auto) 0.3 (0-2) % Lymph # (Auto) 2.4 (1.2-4.9) X10*3/uL [place] # (Auto) 0.7 (0.1-1.2) X10*3/uL Eos # (Auto) 0.2 (0.0-0.4) X10*3/uL Baso # (Auto) 0.0 (0.0-0.2) X10*3/uL Abs Immat Gran (auto) 0.03 (0.00-0.03) X10*3/uL Absolute Neuts (auto) 3.6 (2.0-8.3) x10*3/uL Absolute Nucleated RBC 0.000 (0.0-0.012) X10*3/uL Nucleated RBC % (auto) 0.0 (0.0-0.2) /100WBC Sodium 142 (135-145) mmol/L Potassium 4.0 (3.3-5.1) mmol/L Chloride 108 (96-108) mmol/L Carbon Dioxide 23 (22-29) mmol/L Anion Gap 15 (12-20) BUN 34 H (9-16) mg/dL Creatinine 2.32 H (0.5-1.4) mg/dL Estim Creat Clear Calc 27.4 Estimated GFR 28 Random Glucose 121 H D (60-115) mg/dL Calcium 9.1 (8.4-10.2) mg/dL Total Bilirubin 0.5 (0.0-1.0) mg/dL Direct Bilirubin 0.3 (0.0-0.5) mg/dL AST 15 (5-37) U/L ALT 14 (0-40) U/L Alkaline Phosphatase 62 D (39-117) U/L Troponin I High Sens 12.4 (<3.5-35.0) ng/L Total Protein 7.4 (6.5-8.0) g/dL Albumin 4.2 (3.5-5.0) g/dL Lipase 37 (8-78) U/L Imaging Data CT abdomen pelvis without IV contrast: Radiologist's impression: IMPRESSION: ? 1. Diffuse colonic diverticulosis. Mild inflammation adjacent to the descending colon, concerning for early diverticulitis. 2. Multiple small stones within the gallbladder lumen. No inflammation of the gallbladder is seen. Cannot exclude stones in the cystic duct. No common bile duct stone.? ECG Data Attestation: I personally reviewed and interpreted this ECG as follows: Interpretation: Sinus rhythm with a rate of 64. Slight ST elevation in leads V1 and V2, with biphasic T-waves. Otherwise normal EKG. Discharge Plan Discharge Clinical Impression: Diverticulitis Patient Disposition: Home, Self-Care Instructions: Diverticulitis (ED) Additional Instructions: Take the antibiotics as prescribed. Use tramadol as prescribed for pain. You can also use acetaminophen (Tylenol). Follow-up with primary care physician. Return for any new or worsened symptoms. Drink plenty of fluids. Prescriptions: New amoxicillin-pot clavulanate 875-125 mg tablet 1 tab PO Q12H Qty: 14 0RF tramadol 50 mg tablet 50 mg PO Q6H PRN (Reason: pain) Qty: 12 0RF Discontinued amoxicillin-pot clavulanate [Augmentin] 875-125 mg tablet 1 tab PO BID Qty: 20 0RF levofloxacin 500 mg tablet 500 mg PO Q24H 5 Days Qty: 5 0RF No Action (DME) blood-glucose meter [OneTouch Verio Meter] Misc See Rx Instructions .ROUTE .MEDSUPPLY Qty: 1 0RF Rx Instructions: As directed 4x/day (DME) OneTouch Verio test strips Strip See Rx Instructions .ROUTE .MEDSUPPLY Qty: 150 11RF Rx Instructions: 4 x/day (DME) lancets [OneTouch Delica Lancets] 33 gauge misc See Rx Instructions .ROUTE .MEDSUPPLY Qty: 200 10RF Rx Instructions: four times a day Toujeo SoloStar U-300 Insulin 300 unit/mL (1.5 mL) insulin pen 110 unit subcut BEDTIME Qty: 13.5 4RF insulin lispro [Humalog KwikPen Insulin] 100 unit/mL insulin pen See Rx Instructions subcut QID Qty: 45 4RF Rx Instructions: 45 units with breakfast and lunch..50 units with dinner, 10 units with snack subcut 4 times a day; Jardiance 10 mg tablet 10 mg PO QAM Qty: 30 4RF erythromycin 5 mg/gram (0.5 %) ointment 0.5 inch ophthalmic (eye) QID 5 Days Qty: 3.5 0RF loperamide [Imodium A-D] 2 mg capsule 2 mg PO Q6H PRN (Reason: loose stool) Qty: 14 0RF losartan 100 mg tablet 100 mg PO DAILY atorvastatin 40 mg tablet 40 mg PO DAILY chlorthalidone 25 mg tablet 25 mg PO DAILY aspirin [Adult Aspirin Regimen] 81 mg tablet,delayed release (DR/EC) 81 mg PO DAILY amlodipine 5 mg tablet 10 mg PO QPM carvedilol 3.125 mg tablet 3.125 mg PO BID pantoprazole 40 mg tablet,delayed release (DR/EC) 40 mg PO DAILY Qty: 90 2RF
[2021-10-05] MEDS: 0.9 % Sodium Chloride 1,000 ML 999 ML IV (04:41)
[2021-10-05] MEDS: ondansetron HCL 4 MG/2 ML VIAL IVPUSH (04:41)
--- NOTE | 2021-10-05 04:41 | ECG_ITS ---
Test Reason : ABD PAIN Blood Pressure : / mmHG Vent. Rate : 064 BPM Atrial Rate : 064 BPM P-R Int : 150 ms QRS Dur : 088 ms QT Int : 442 ms P-R-T Axes : 035 055 089 degrees QTc Int : 455 ms Normal sinus rhythm Normal ECG When compared with ECG of 03-APR-2019 12:19, No significant change was found Referred By: Senthil Stewart Electronically Signed By:ELEAZAR ARNOLD
[2021-10-05] MEDS: Morphine Sulfate 4 MG/ML CARTRIDGE IVPUSH (04:42)
[2021-10-05 04:48] VITALS: BP 162/61; PULSE 66; RESP 12; O2SAT 98
[2021-10-05 05:33] LABS: Troponin-I High Sensitivity 12.4 ng/L (<3.5-35.0)
[2021-10-05] MEDS: Amoxicillin/Potassium Clav 875 MG TABLET PO (05:54)
== END 2021-10-05 06:14 | disposition home or self-care (01) ==
PROVIDERS: Emergency Provider Emergency Medicine
DX: K57.92 Diverticulitis of intestine, part unspecified, without perforation or abscess without bleeding (principal); R10.9 Unspecified abdominal pain; E11.22 Type 2 diabetes mellitus with diabetic chronic kidney disease; I12.9 Hypertensive chronic kidney disease with stage 1 through stage 4 chronic kidney disease, or unspecified chronic kidney disease; N18.30 Chronic kidney disease, stage 3 unspecified; E78.5 Hyperlipidemia, unspecified; Z79.82 Long term (current) use of aspirin; Z79.02 Long term (current) use of antithrombotics/antiplatelets; Z79.899 Other long term (current) drug therapy; Z79.4 Long term (current) use of insulin
CPT/HCPCS: 36415; 74176; 80053; 82248; 83690; 84484; 85025; 93005; 96374; 96375; 99284; 99285; J2270; J2405

== ENCOUNTER 2021-11-01 09:10 | Inpatient (IN) | payer OTHER, SELFPAY ==
[2021-11-01] VITALS (12 sets, daily range): BP systolic 100–130; BP diastolic 48–63; PULSE 76–89; RESP 16–26; TEMP 36.9–39.9; O2SAT 93–96; BMI 26.6
--- NOTE | 2021-11-01 | ECG_ITS ---
Test Reason : ELEVATED TROPONIN Blood Pressure : / mmHG Vent. Rate : 078 BPM Atrial Rate : 078 BPM P-R Int : 152 ms QRS Dur : 080 ms QT Int : 402 ms P-R-T Axes : 044 064 131 degrees QTc Int : 458 ms Normal sinus rhythm ST & T wave abnormality, consider lateral ischemia Abnormal ECG When compared with ECG of 01-NOV-2021 10:05, No significant change was found Referred By: Zayra Pardo Electronically Signed By:ELEAZAR ARNOLD
--- NOTE | ~2021-11-01 | US_ITS ---
EXAMINATION: US VENOUS ULTRASOUND WITH DOPPLER LOWER EXTREMITY, BILATERAL CLINICAL INFORMATION: Lower extremity swelling. COMPARISON: None TECHNIQUE: Ultrasound of the deep veins is performed from the hip to the calf with compression sonography and color and pulse Doppler assessment. Spectral analysis with color-flow imaging is performed. FINDINGS: RIGHT: There is normal venous compression and respiratory variation and augmented flow. The visualized common femoral vein, superficial femoral vein, profunda femoral vein, popliteal vein, and the trifurcation region shows no evidence of deep venous thrombosis. There is no significant popliteal fossa cyst. LEFT: There is normal venous compression and respiratory variation and augmented flow. The visualized common femoral vein, superficial femoral vein, profunda femoral vein, popliteal vein, and the trifurcation region shows no evidence of deep venous thrombosis. There is no significant popliteal fossa cyst. If the patient's symptoms persist, followup ultrasound in 5 days 7 days might be of value to exclude proximal propagation from a non-visualized calf vein. US/US venous duplex LE BI IMPRESSION: No evidence for deep venous thrombosis in the visualized veins of the bilateral lower extremities.
--- NOTE | ~2021-11-01 | XR_ITS ---
EXAMINATION: XR CHEST CLINICAL INFORMATION: Weakness. COMPARISON: 09/02/2021 chest radiographs. TECHNIQUE: Frontal view of the chest was obtained. FINDINGS: Patchy infiltrates are seen in the right mid and lower lung king. The left lung is clear. The heart and mediastinal structures are unremarkable. XR/XR chest 1V IMPRESSION: Right mid and lower lung patchy infiltrate are not seen previously and suggest an infectious/inflammatory process.
--- NOTE | 2021-11-01 09:31 | ECG_ITS ---
Test Reason : weakness Blood Pressure : / mmHG Vent. Rate : 084 BPM Atrial Rate : 084 BPM P-R Int : 142 ms QRS Dur : 078 ms QT Int : 348 ms P-R-T Axes : 049 065 123 degrees QTc Int : 411 ms Normal sinus rhythm ST & T wave abnormality, consider lateral ischemia Abnormal ECG When compared with ECG of 05-OCT-2021 04:48, T wave inversion now evident in Lateral leads ST now depressed in Lateral leads Referred By: Keesha Bucio Electronically Signed By:ELEAZAR ARNOLD
[2021-11-01] MEDS: 0.9 % Sodium Chloride 1,000 ML 999 ML IV (09:45)
--- NOTE | 2021-11-01 09:45 | ED_ITS ---
HPI - General Adult General Chief complaint: Weakness Stated complaint: WEAK,LETHARGIC,HOT TO TOUCH PER EMS Time Seen by Provider: 11/01/21 09:19 Source: patient and EMS Mode of arrival: EMS History of Present Illness HPI narrative: 76-year-old female with a past medical history of CKD, diverticulosis, GERD, HLD, renal stones, diabetes, presenting to ED via EMS for increased lethargy, generalized fatigue/weakness since this morning. Reports mechanical slip out of bed this AM and was unable to get himself up due to generalized weakness, denies head strike or LOC. Reports nonproductive cough, SOB, and nausea. Denies headache, chest pain, abdominal pain, dysuria/hematuria, pedal edema, sick contacts Onset (ago): hour(s) Related Data Home Medications Medication Instructions Recorded Confirmed aspirin 81 mg tablet,delayed 81 mg PO DAILY 12/16/19 11/01/21 release (Adult Aspirin Regimen) atorvastatin 40 mg tablet 40 mg PO DAILY 12/16/19 11/01/21 chlorthalidone 25 mg tablet 25 mg PO DAILY 12/16/19 11/01/21 losartan 100 mg tablet 100 mg PO DAILY 12/16/19 11/01/21 carvedilol 3.125 mg tablet 3.125 mg PO BID 09/26/21 11/01/21 amlodipine 10 mg tablet 1 tab PO DAILY@1500 11/01/21 11/01/21 empagliflozin 10 mg tablet 10 mg PO DAILY 11/01/21 11/01/21 (Jardiance) fexofenadine 180 mg tablet 180 mg PO DAILY 11/01/21 11/01/21 insulin glargine U-300 conc 300 180 unit subcut BEDTIME 11/01/21 11/01/21 unit/mL (1.5 mL) subcutaneous pen (Toujeo SoloStar U-300 Insulin) insulin lispro 100 unit/mL 40 unit subcut BIDWMEAL 11/01/21 11/01/21 subcutaneous pen (Humalog KwikPen (U-100) Insulin) linagliptin 5 mg tablet (Tradjenta) 1 tab PO DAILY 11/01/21 11/01/21 omeprazole 20 mg capsule,delayed 20 mg PO DAILY@0630 11/01/21 11/01/21 release peg [id number] 1 1 drp ophthalmic (eye) BID PRN Dry 11/01/21 11/01/21 %-0.2 %-0.2 % eye drops (Dry Eye Eye(S) Relief) pioglitazone 30 mg tablet 1 tab PO DAILY 11/01/21 11/01/21 Previous Rx's Medication Instructions Recorded blood sugar diagnostic (OneTouch #150 ea 04/28/21 Verio test strips) blood-glucose meter (OneTouch #1 ea 04/28/21 Verio Meter) lancets 33 gauge (OneTouch Delica #200 ea 04/28/21 Lancets) insulin lispro 100 unit/mL See Rx Instructions subcut QID #45 09/19/21 subcutaneous pen (Humalog KwikPen mL (U-100) Insulin) Allergies Allergy/AdvReac Type Severity Reaction Status Date / Time No Known Allergies Allergy Mild N/A Verified 09/26/21 10:37 Review of Systems Review of Systems: Constitutional: No Fever, No Chills, No Night Sweats, + F atigue, + Malaise ENT/Mouth: No Ear Pain, No Nasal Congestion, No Sinus Pain, No Hoarseness, No sore throat, No Rhinorrhea, No Swallowing Difficulty Eyes: No Eye Pain, No Swelling, No Redness, No Vision Changes Cardiovascular: No Chest Pain, + SOB, No Dyspnea on Exertion, No Orthopnea, No Edema, No Palpitations Respiratory: + Cough, No Sputum, No Wheezing, No Smoke Exposure, No Dyspnea Gastrointestinal: + Nausea, No Vomiting, No Diarrhea, No Constipation, No Abdominal pain Genitourinary: No irregular bleeding, No Dysuria, No Urinary Frequency, No Hematuria, No Urinary Incontinence/retention,No Flank Pain Musculoskeletal: No joint pain, No Myalgias, No Joint Swelling Skin: No Skin Lesions, No rash Neuro: + Weakness, No Numbness, No Loss of Consciousness, No Dizziness, No Headache Yes all other systems are reviewed and are negative Constitutional: Constitutional: Reports as per HPI Neurologic: Denies Abnormal speech [facility] Past Medical History Attestation statement: The following information was validated with the patient. 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 Mother Diabetes mellitus Brother Diabetes mellitus Sister Diabetes mellitus Social History Social History Household Members: Spouse and Children Alcohol intake: never Patient Tobacco Use Status: Never used Tobacco Advance Directives: No Physical Exam ED Vital Signs: Vital Signs - 24 hr 11/01/21 09:45 11/01/21 10:05 11/01/21 10:45 Temperature 103.8 F H 99.7 F Pulse Rate 89 85 88 Respiratory Rate 16 16 Blood Pressure 100/63 128/53 L 125/52 L Pulse Oximetry 93 96 95 Oxygen Delivery Method Room Air Room Air Room Air 11/01/21 10:58 11/01/21 11:00 11/01/21 11:01 Temperature 100.0 F Pulse Rate 81 81 78 Respiratory Rate 22 H Blood Pressure 123/55 L 123/55 L 113/48 L Pulse Oximetry 96 Oxygen Delivery Method Room Air 11/01/21 11:05 Temperature Pulse Rate 83 Respiratory Rate Blood Pressure 117/54 L Pulse Oximetry Oxygen Delivery Method BMI result Body Mass Index 26.6 Const General: cooperative, healthy appearing and no acute distress Orientation/consciousness: patient oriented x3 Limitations: no limitations [facility] Head: Yes normal to inspection and Yes atraumatic Ears: hearing grossly normal bilaterally General nose exam: Normal external nose present Face and sinus: Yes normal facial exam Eyes General: appearance normal, both eyes and all related structures EOM: EOMs intact bilaterally Neck Neck: Yes normal visual inspection and Yes no meningeal signs Resp Effort & Inspection: normal respiratory effort and no respiratory distress Auscultation: clear to auscultation bilaterally, no crackles, no rales, no rhonchi and no wheezes Cardio Rate: regular rate Heart sounds: S1 normal heart sound present and S2 normal heart sound present GI Inspection: Yes normal to inspection Palpation (GI): Soft to palpation, nontender, no guarding and not rigid General: Yes no CVA tenderness Back/Spine/Pelvis Back: no CVA tenderness Skin Rashes: no rashes Wounds: no wounds Neuro General: patient oriented x3, gait normal, tone normal, moves all extremities, no meningeal signs, no focal motor deficits and CN's II-XI intact bilaterally Cranial nerves: Yes CN's II-XII intact bilaterally Cognition (Neuro): normal cognition Speech: No Abnormal speech present Motor exam (neuro): 5/5 motor strength present throughout and no tremor noted Extrem Other: 2+ bilateral LE pitting edema Course Course Course Narrative: -1015--leukocytosis of 12.3. H&H at patient's baseline. > empiric IV Rocephin ordered -acute on chronic CKD. Lactic acid elevated to 3.3. Initial troponin 16.7 > will obtain 3 hour repeat XR chest 1V IMPRESSION: Right mid and lower lung patchy infiltrate are not seen previously and suggest an infectious/inflammatory process. ? > IV Azithromycin added -1130--COVID-19/influenza/RSV negative. PORT score recommends admission -patient admitted for further management Medical Decision Making [facility] Narrative Medical decision making narrative: 76-year-old female with a past medical history of CKD, diverticulosis, GERD, HLD, renal stones, diabetes, presenting to ED via EMS for increased lethargy, generalized fatigue/weakness since this morning. reports nonproductive cough, SOB, and nausea. On exam febrile to 103.8, NAD, lungs CTA, abdomen soft/nontender, 2+ pitting edema noted parent concern for viral illness including COVID-19 vs pneumonia vs UTI or other infectious etiology. Rule out metabolic abnormalities. Low suspicion for CVA/ICH Plan: EKG, labs, UA, CXR, lactic/blood cultures, p.o. Tylenol, IVF, admission Medical Records Medical records reviewed: Yes I reviewed the patient's medical records. Lab Data Lab results reviewed: Yes I reviewed the patient's lab results. Result diagrams: 11/01/21 09:42 11/01/21 09:42 Labs: Lab Results 11/01/21 11/01/21 11/01/21 Range/Units 09:41 09:42 09:42 WBC 12.3 H (4.8-10.8) X10*3/uL RBC 4.49 L (4.60-5.80) X10*6/uL Hgb 12.3 L (14.0-18.0) g/dl Hct 37.1 L (42.0-52.0) % MCV 82.6 (80.0-98.0) fL MCH 27.4 (27.0-33.0) pg MCHC 33.2 (31.0-36.0) g/dl RDW 14.6 (11.0-16.0) % Plt Count 162 (160-400) X10*3/uL MPV 9.8 (9.4-12.4) fL Immature Gran % (Auto) 0.2 (0.0-0.4) % Neut % (Auto) 88.0 H (45-73) % Lymph % (Auto) 4.8 L (20-40) % [place] % (Auto) 6.0 (2-11) % Eos % (Auto) 0.8 (0-4) % Baso % (Auto) 0.2 (0-2) % Lymph # (Auto) 0.6 L (1.2-4.9) X10*3/uL [place] # (Auto) 0.7 (0.1-1.2) X10*3/uL Eos # (Auto) 0.1 (0.0-0.4) X10*3/uL Baso # (Auto) 0.0 (0.0-0.2) X10*3/uL Abs Immat Gran (auto) 0.03 (0.00-0.03) X10*3/uL Absolute Neuts (auto) 10.8 H (2.0-8.3) x10*3/uL Absolute Nucleated RBC 0.000 (0.0-0.012) X10*3/uL Nucleated RBC % (auto) 0.0 (0.0-0.2) /100WBC Sodium 139 (135-145) mmol/L Potassium 4.3 (3.3-5.1) mmol/L Chloride 109 H (96-108) mmol/L Carbon Dioxide 18 L (22-29) mmol/L Anion Gap 16 (12-20) BUN 40 H (9-16) mg/dL Creatinine 2.27 H (0.5-1.4) mg/dL Estim Creat Clear Calc 28.1 Estimated GFR 28 Random Glucose 290 H D (60-115) mg/dL Lactic Acid 3.3 H* (0.5-2.0) mmol/L Calcium 8.9 (8.4-10.2) mg/dL Magnesium 1.9 (1.6-2.6) mg/dL Total Bilirubin 1.0 (0.0-1.0) mg/dL Direct Bilirubin 0.4 (0.0-0.5) mg/dL AST 15 (5-37) U/L ALT 16 (0-40) U/L Alkaline Phosphatase 62 (39-117) U/L Total Creatine Kinase 136 (38-174) U/L Troponin I High Sens (<3.5-35.0) ng/L B-Natriuretic Peptide (<100) pg/mL Total Protein 6.7 (6.5-8.0) g/dL Albumin 3.8 (3.5-5.0) g/dL Lipase 30 (8-78) U/L Influenza Type A (PCR) (Negative) Influenza Type B (PCR) (Negative) RSV RNA Qual (PCR) (Negative) SARS-CoV-2 RNA (RT-PCR) (Negative) 11/01/21 11/01/21 Range/Units 09:42 10:24 WBC (4.8-10.8) X10*3/uL RBC (4.60-5.80) X10*6/uL Hgb (14.0-18.0) g/dl Hct (42.0-52.0) % MCV (80.0-98.0) fL MCH (27.0-33.0) pg MCHC (31.0-36.0) g/dl RDW (11.0-16.0) % Plt Count (160-400) X10*3/uL MPV (9.4-12.4) fL Immature Gran % (Auto) (0.0-0.4) % Neut % (Auto) (45-73) % Lymph % (Auto) (20-40) % [place] % (Auto) (2-11) % Eos % (Auto) (0-4) % Baso % (Auto) (0-2) % Lymph # (Auto) (1.2-4.9) X10*3/uL [place] # (Auto) (0.1-1.2) X10*3/uL Eos # (Auto) (0.0-0.4) X10*3/uL Baso # (Auto) (0.0-0.2) X10*3/uL Abs Immat Gran (auto) (0.00-0.03) X10*3/uL Absolute Neuts (auto) (2.0-8.3) x10*3/uL Absolute Nucleated RBC (0.0-0.012) X10*3/uL Nucleated RBC % (auto) (0.0-0.2) /100WBC Sodium (135-145) mmol/L Potassium (3.3-5.1) mmol/L Chloride (96-108) mmol/L Carbon Dioxide (22-29) mmol/L Anion Gap (12-20) BUN (9-16) mg/dL Creatinine (0.5-1.4) mg/dL Estim Creat Clear Calc Estimated GFR Random Glucose (60-115) mg/dL Lactic Acid (0.5-2.0) mmol/L Calcium (8.4-10.2) mg/dL Magnesium (1.6-2.6) mg/dL Total Bilirubin (0.0-1.0) mg/dL Direct Bilirubin (0.0-0.5) mg/dL AST (5-37) U/L ALT (0-40) U/L Alkaline Phosphatase (39-117) U/L Total Creatine Kinase (38-174) U/L Troponin I High Sens 16.7 (<3.5-35.0) ng/L B-Natriuretic Peptide 19 (<100) pg/mL Total Protein (6.5-8.0) g/dL Albumin (3.5-5.0) g/dL Lipase (8-78) U/L Influenza Type A (PCR) NEGATIVE (Negative) Influenza Type B (PCR) NEGATIVE (Negative) RSV RNA Qual (PCR) NEGATIVE (Negative) SARS-CoV-2 RNA (RT-PCR) NEGATIVE (Negative) ECG Data Attestation: I personally reviewed and interpreted this ECG as follows: Interpretation: EKG normal sinus rhythm at a rate of 84. T-wave inversions in lateral leads. QTC 411. No STEMI. Critical Care Time Critical Care Time Critical Care Time: Yes Total Critical Care Time: 45 Attestation: I have personally provided critical care time exclusive of time spent on separately billable procedures. Time includes review of lab data, radiology results, discussion with consultants, and monitoring for potential decompensation. Intervention performed as documented. Discharge Plan Discharge Clinical Impression: Pneumonia, Generalized weakness Patient Disposition: Admitted As Inpatient
[2021-11-01 09:50] LABS: MANUAL DIFF FLAG NO
[2021-11-01 09:53] LABS: Basophils Percent Auto 0.2 % (0-2); Eosinophils Absolute Auto 0.1 X10*3/uL (0.0-0.4); Eosinophils Percent Auto 0.8 % (0-4); Hematocrit 37.1 % (42.0-52.0); Hemoglobin 12.3 g/dl (14.0-18.0); Imm Gran Abs Auto 0.03 X10*3/uL (0.00-0.03); Imm Gran Pct Auto 0.2 % (0.0-0.4); Lymphocytes Absolute Auto 0.6 X10*3/uL (1.2-4.9); Lymphocytes Percent Auto 4.8 % (20-40); Mean Corpuscular HGB Conc 33.2 g/dl (31.0-36.0); Mean Corpuscular Hemoglobin 27.4 pg (27.0-33.0); Mean Corpuscular Volume 82.6 fL (80.0-98.0); Mean Platelet Volume 9.8 fL (9.4-12.4); Monocytes Absolute Auto 0.7 X10*3/uL (0.1-1.2); Neutrophils Absolute Auto 10.8 x10*3/uL (2.0-8.3); Platelet Count 162 X10*3/uL (160-400); Red Blood Count 4.49 X10*6/uL (4.60-5.80); Red Cell Distribution Width 14.6 % (11.0-16.0); White Blood Count 12.3 X10*3/uL (4.8-10.8)
[2021-11-01] MEDS: Acetaminophen 325 MG TABLET 975 MG PO (09:56)
[2021-11-01 10:09] LABS: Alanine Aminotransferase 16 U/L (0-40); Albumin Level 3.8 g/dL (3.5-5.0); Alkaline Phosphatase 62 U/L (39-117); Anion Gap 16 (12-20); Aspartate Amino Transferase 15 U/L (5-37); Bilirubin Direct 0.4 mg/dL (0.0-0.5); Blood Urea Nitrogen 40 mg/dL (9-16); Calcium 8.9 mg/dL (8.4-10.2); Carbon Dioxide 18 mmol/L (22-29); Chloride 109 mmol/L (96-108); Creatinine Clr Calc Pharmacy 28.1; Estimated Glomerular Filt Rate 28; Glucose Random 290 mg/dL (60-115); Lipase 30 U/L (8-78); Magnesium 1.9 mg/dL (1.6-2.6); Potassium 4.3 mmol/L (3.3-5.1); Sodium 139 mmol/L (135-145); Total Protein 6.7 g/dL (6.5-8.0)
[2021-11-01 10:10] LABS: Lactic Acid 3.3 mmol/L (0.5-2.0)
[2021-11-01 10:16] LABS: B Type Natriuretic Peptide 19 pg/mL (<100); Troponin-I High Sensitivity 16.7 ng/L (<3.5-35.0)
[2021-11-01] MEDS: 0.9 % Sodium Chloride 500 ML 999 ML IV (10:49)
[2021-11-01] MEDS: cefTRIAXone sodium 1 GM in 0.9 % Sodium Chloride 50 ML IV (10:52)
[2021-11-01] MEDS: Azithromycin 500 MG in 0.9 % Sodium Chloride 250 ML 125 MG IV (11:18)
[2021-11-01 11:20] LABS: Influenza A PCR NEGATIVE (Negative); Influenza B PCR NEGATIVE (Negative); Resp Syncy Virus RNA Qual PCR NEGATIVE (Negative); SARS COV2 PCR INHOUSE NEGATIVE (Negative)
[2021-11-01 11:48] LABS: Reflex Lactate? Lactic Acid Added
--- NOTE | 2021-11-01 12:04 | P.HPHOSP_ITS ---
History of Present Illness Date of Service: 11/01/21 Chief Complaint: Shortness of breath and cough This is a 76-year-old male with a pertinent history of insulin-dependent diabetes mellitus, essential hypertension, chronic kidney disease stage 3 who presents to the emergency department with complaints of shortness of breath and cough. Patient states it started about 3 days prior to presentation and has been progressive, without any relieving factors. Patient states that his has noticed that his respiratory rate has increased. He has associated dry cough. No sick contacts. Patient does endorse fevers and chills but denies chest discomfort, palpitations, vomiting, changes in urinary or bowel habits. On the day of presentation, patient has been having nausea and generalized weakness. States he feels ill. Has had four vaccinations for COVID-19. No recent travels. 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 Mother Diabetes mellitus Brother Diabetes mellitus Sister Diabetes mellitus Surgical History Hx of colonoscopy Hx of lithotripsy Social History Household Members: Spouse and Children Alcohol intake: never Patient Tobacco Use Status: Never used Tobacco Advance Directives: No Meds Allergies Allergy/AdvReac Type Severity Reaction Status Date / Time No Known Allergies Allergy Mild N/A Verified 09/26/21 10:37 Active Medications: Current Medications Azithromycin 500 mg/ Sodium (Chloride) 250 mls @ 125 mls/hr IV ONCE ONE Stop: 11/01/21 12:32 Last Admin: 11/01/21 11:18 Dose: 125 mls/hr Pharmacy Consult (Consult Rx Perform Med Rec) 1 each MISCELLANE ONCE PRN PRN Reason: Consult order Home Medications Medication Instructions Recorded Confirmed Last Taken Type aspirin 81 mg tablet,delayed 81 mg PO DAILY 12/16/19 04/27/21 01/05/21 History release (Adult Aspirin Regimen) atorvastatin 40 mg tablet 40 mg PO DAILY 12/16/19 04/27/21 Unknown History chlorthalidone 25 mg tablet 25 mg PO DAILY 12/16/19 04/27/21 Unknown History losartan 100 mg tablet 100 mg PO DAILY 12/16/19 04/27/21 Unknown History carvedilol 3.125 mg tablet 3.125 mg PO BID 09/26/21 Unknown History amlodipine 10 mg tablet 1 tab PO QPM 11/01/21 Unknown History empagliflozin 10 mg tablet 10 mg PO DAILY 11/01/21 Unknown History (Jardiance) fexofenadine 180 mg tablet 180 mg PO DAILY 11/01/21 11/01/21 10/31/21 History insulin glargine U-300 conc 300 180 unit subcut BEDTIME 11/01/21 11/01/21 10/31/21 History unit/mL (1.5 mL) subcutaneous pen (Toujeo SoloStar U-300 Insulin) insulin lispro 100 unit/mL 40 unit subcut BIDWMEAL 11/01/21 11/01/21 10/31/21 History subcutaneous pen (Humalog KwikPen (U-100) Insulin) linagliptin 5 mg tablet (Tradjenta) 1 tab PO DAILY 11/01/21 Unknown History omeprazole 20 mg capsule,delayed 20 mg PO DAILY@0630 11/01/21 11/01/21 10/31/21 History release peg [id number] 1 1 drp ophthalmic (eye) BID PRN Dry 11/01/21 11/01/21 10/31/21 History %-0.2 %-0.2 % eye drops (Dry Eye Eye(S) Relief) pioglitazone 30 mg tablet 1 tab PO DAILY 11/01/21 Unknown History Physical Exam Vital Signs and Narrative: Vital Signs: Last Vital Signs Temp 100.0 F 11/01/21 10:58 Pulse 83 11/01/21 11:05 Resp 22 H 11/01/21 10:58 BP 117/54 L 11/01/21 11:05 Pulse Ox 96 11/01/21 10:58 O2 Del Method 11/01/21 10:58 BMI result Body Mass Index 26.6 Elderly Romansh-speaking male lying in bed in mild distress Tachypnea noted with right-sided crackles, no wheezing appreciated Neck supple, no JVD Irregular rate and rhythm, S1-S2 heard, no murmurs appreciated Abdomen soft, nontender, no guarding, no rigidity Patient is awake, alert and oriented x4, is conversational, no focal motor deficits Right-sided pitting edema + Results Labs CBC and Chem 7: 11/01/21 09:42 11/01/21 09:42 Labs: Laboratory Results - last 24 hr 11/01/21 11/01/21 11/01/21 09:41 09:42 09:42 MCV 82.6 MCH 27.4 MCHC 33.2 RDW 14.6 Plt Count 162 MPV 9.8 Immature Gran % (Auto) 0.2 Neut % (Auto) 88.0 H Lymph % (Auto) 4.8 L Hand % (Auto) 6.0 Eos % (Auto) 0.8 Baso % (Auto) 0.2 Lymph # (Auto) 0.6 L Hand # (Auto) 0.7 Eos # (Auto) 0.1 Baso # (Auto) 0.0 Abs Immat Gran (auto) 0.03 Absolute Neuts (auto) 10.8 H Absolute Nucleated RBC 0.000 Nucleated RBC % (auto) 0.0 Anion Gap 16 Estim Creat Clear Calc 28.1 Estimated GFR 28 Random Glucose 290 H D Lactic Acid 3.3 H* Calcium 8.9 Magnesium 1.9 Total Bilirubin 1.0 Direct Bilirubin 0.4 AST 15 ALT 16 Alkaline Phosphatase 62 Total Creatine Kinase 136 B-Natriuretic Peptide Total Protein 6.7 Albumin 3.8 Lipase 30 Influenza Type A (PCR) Influenza Type B (PCR) RSV RNA Qual (PCR) SARS-CoV-2 RNA (RT-PCR) 11/01/21 11/01/21 09:42 10:24 MCV MCH MCHC RDW Plt Count MPV Immature Gran % (Auto) Neut % (Auto) Lymph % (Auto) Hand % (Auto) Eos % (Auto) Baso % (Auto) Lymph # (Auto) Hand # (Auto) Eos # (Auto) Baso # (Auto) Abs Immat Gran (auto) Absolute Neuts (auto) Absolute Nucleated RBC Nucleated RBC % (auto) Anion Gap Estim Creat Clear Calc Estimated GFR Random Glucose Lactic Acid Calcium Magnesium Total Bilirubin Direct Bilirubin AST ALT Alkaline Phosphatase Total Creatine Kinase B-Natriuretic Peptide 19 Total Protein Albumin Lipase Influenza Type A (PCR) NEGATIVE Influenza Type B (PCR) NEGATIVE RSV RNA Qual (PCR) NEGATIVE SARS-CoV-2 RNA (RT-PCR) NEGATIVE Imaging Radiologist's Impressions: Impressions Chest X-Ray 11/01/21 09:54 IMPRESSION: Right mid and lower lung patchy infiltrate are not seen previously and suggest an infectious/inflammatory process. 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: with turbine technician use Qualified Code(s): E11.42 - Type 2 diabetes mellitus with diabetic polyneuropathy; Z79.4 - longterm (current) use of insulin Status: Acute (5) Chronic kidney disease, stage 3: Qualifiers: Chronic kidney disease stage 3 subtype: stage 3b (GFR 30-44) Qualified Code(s): N18.32 - Chronic kidney disease, stage 3b Status: Acute (6) Essential hypertension: Status: Acute Plan This is a 76-year-old male with a pertinent history of insulin-dependent diabetes mellitus, CKD stage 3, essential hypertension who presents with shortness of breath and cough and is being admitted for sepsis and acute dyspnea due to community-acquired pneumonia. #. Sepsis due to community-acquired pneumonia #. Acute dyspnea in the setting of above #. Type A lactic acidosis -Patient is febrile on admission with lactic acidosis and leukocytosis. He is also tachypneic. Will resuscitate with IV crystalloids as per sepsis protocol. Trend lactic acid. Initiating empiric coverage for community-acquired pneumonia, azithromycin and Rocephin. Blood cultures obtained at the time of admission. #. Type 2 diabetes mellitus -will continue home basal bolus regimen. Also initiating Accu-Cheks with sliding scale insulin before meals and bedtime. #. Chronic kidney disease stage 3 -creatinine appears to be at baseline. Monitor and avoid nephrotoxins #. Essential hypertension -blood pressure low normal at the time of admission. Holding home antihypertensives, restart as appropriate. #. Lower extremity edema -likely due to venous insufficiency. No signs or symptoms of congestive heart failure. Obtaining venous Doppler ultrasound to rule out DVT. #. Generalized weakness in the setting of acute illness -consulting Physical therapy to evaluate and treat Code status: Full code Diet: Diabetic diet DVT prophylaxis: Lovenox 30 mg daily Quality Stroke Does the patient have a stroke diagnosis?: No VTE Prior VTE?: No VTE Risk Level:: Medical - moderate - high VTE Device Contraindication: Treatment Not Indicated VTE Drug Contraindication: N/A - Med Ordered
--- NOTE | 2021-11-01 12:28 | PHA.MEDREC ---
Pharmacy Consult ? Medication Reconciliation Pharmacy has completed the medication reconciliation. Pt poor historian, able to confirm doses of insulin. States he takes 40 units for breakfast and should be taking 40 at lunch. He also takes 180 units of Toujeo at night.
--- NOTE | 2021-11-01 12:55 | PC.NURSE ---
pt getting a LE US. he appears more comfortable at this time. Physical Therapy is also present
[2021-11-01 13:03] LABS: Appearance Urine Clear; Color Urine Yellow; Glucose Urine UA >=1000 mg/dL (Negative); Leukocyte Esterase Urine Negative (Negative); Nitrite Urine Negative (Negative); Specific Gravity - Urine 1.015 (1.005-1.025); UMIC TRIGGER UACC YES; Urine Blood Negative (Negative); Urine Ketones Negative (Negative); Urine Protein 30 (1+) mg/dL (Neg-Trace)
[2021-11-01 13:06] LABS: Bacteria Urine None Seen (None Seen); Hyaline Casts Urine 0-2 /LPF (0-2); RBC Urine 0-2 /HPF (0-2); Squamous Epithelial Cell Urine 0-2 /HPF (0-2); WBC Urine 0-5 /HPF (0-5)
[2021-11-01] MEDS: 0.9 % Sodium Chloride 250 ML 1000 ML IV (13:15)
[2021-11-01 13:18] LABS: ~Lactic Acid-LAB USE ONLY 2.3 mmol/L (0.5-2.0)
[2021-11-01 13:25] LABS: Troponin-I High Sensitivity 102.4 ng/L (<3.5-35.0)
[2021-11-01 13:29] LABS: Glucose, Whole Blood 177 mg/dL (60-115)
[2021-11-01 14:56] LABS: Reflex Lactate? 2 Y
[2021-11-01] MEDS: Enoxaparin Sodium 30 MG/0.3 ML SYRINGE SUBCUT (15:22)
[2021-11-01] MEDS: 0.9 % Sodium Chloride 1,000 ML 200 ML IV (15:22)
[2021-11-01 16:00] LABS: ~Lactic Acid-LAB USE ONLY 2.7 mmol/L (0.5-2.0)
[2021-11-01 16:55] LABS: Troponin-I High Sensitivity 116.9 ng/L (<3.5-35.0)
--- NOTE | 2021-11-01 17:15 | PM.EVENT ---
Documented by User: Zayra Pardo NP 11/01/21 17:18 Event Note Date of Service: 11/01/21 Event Note: Noted elevated troponin with trend of: 16.7, 102.4, 116.9 Discussed with ED RN Check EKG Consult cardiology May be secondary to sepsis Documented by User: Marcia Palacios MD 11/07/21 12:04 Event Note Date of Service: 11/07/21
[2021-11-01 17:37] LABS: Glucose, Whole Blood 332 mg/dL (60-115)
[2021-11-01] MEDS: Insulin Lispro 100 UNIT/ML 3 ML VIAL SUBCUT ×2 (18:28→22:09)
[2021-11-01] MEDS: Insulin Glargine,Hum.rec.anlog 100 UNIT/ML 10 ML VIAL 115 UNIT SUBCUT (21:28)
[2021-11-01 21:35] LABS: Glucose, Whole Blood 313 mg/dL (60-115)
[2021-11-02] MEDS: 0.9 % Sodium Chloride Flush 3 ML SYRINGE IVFLUSH ×3 (01:27→16:10)
[2021-11-02 04:47] LABS: MANUAL DIFF FLAG NO
[2021-11-02 04:49] LABS: Basophils Percent Auto 0.2 % (0-2); Eosinophils Absolute Auto 0.1 X10*3/uL (0.0-0.4); Eosinophils Percent Auto 0.7 % (0-4); Hematocrit 32.6 % (42.0-52.0); Hemoglobin 10.7 g/dl (14.0-18.0); Imm Gran Abs Auto 0.11 X10*3/uL (0.00-0.03); Imm Gran Pct Auto 0.7 % (0.0-0.4); Lymphocytes Percent Auto 12.7 % (20-40); Mean Corpuscular HGB Conc 32.8 g/dl (31.0-36.0); Mean Corpuscular Hemoglobin 28.3 pg (27.0-33.0); Mean Corpuscular Volume 86.2 fL (80.0-98.0); Mean Platelet Volume 10.6 fL (9.4-12.4); Monocytes Absolute Auto 1.1 X10*3/uL (0.1-1.2); Monocytes Percent Auto 7.1 % (2-11); Neutrophils Absolute Auto 12.3 x10*3/uL (2.0-8.3); Neutrophils Percent Auto 78.6 % (45-73); Platelet Count 134 X10*3/uL (160-400); Red Blood Count 3.78 X10*6/uL (4.60-5.80); White Blood Count 15.7 X10*3/uL (4.8-10.8)
[2021-11-02 05:24] LABS: Anion Gap 14 (12-20); Blood Urea Nitrogen 30 mg/dL (9-16); Calcium 8.2 mg/dL (8.4-10.2); Carbon Dioxide 19 mmol/L (22-29); Chloride 115 mmol/L (96-108); Creatinine Clr Calc Pharmacy 35.2; Estimated Glomerular Filt Rate 37; Glucose Random 81 mg/dL (60-115); Potassium 4.1 mmol/L (3.3-5.1); Sodium 144 mmol/L (135-145)
[2021-11-02 06:00] VITALS: BP 111/47; PULSE 66; O2SAT 98
[2021-11-02 07:02] LABS: Glucose, Whole Blood 63 mg/dL (60-115)
[2021-11-02] MEDS: Aspirin Enteric Coated 81 MG TABLET.DR PO (08:19)
[2021-11-02] MEDS: Omeprazole 20 MG CAPSULE.DR PO (08:19)
[2021-11-02] MEDS: Atorvastatin Calcium 40 MG TABLET PO (08:19)
[2021-11-02 08:20] VITALS: BP 121/61; PULSE 68; RESP 16; TEMP 37.1; O2SAT 98
[2021-11-02 08:29] LABS: Glucose, Whole Blood 121 mg/dL (60-115)
[2021-11-02 10:03] LABS: Lactic Acid 1.3 mmol/L (0.5-2.0)
--- NOTE | 2021-11-02 10:03 | HO.PM.IMPN ---
Subjective Subjective Date of Service: 11/02/21 Interval History: The significant nursing events overnight. Patient significantly improved since admission. Maintaining normal oxygen saturation on room air. Tachypnea improved. Review of Systems All 13 Review of systems reviewed and negative except as noted in HPI Physical Exam Vital Signs: Vital Signs: Last Vital Signs Temp 98.8 F 11/02/21 08:20 Pulse 68 11/02/21 08:20 Resp 16 11/02/21 08:20 BP 121/61 11/02/21 08:20 Pulse Ox 98 11/02/21 08:20 O2 Del Method 11/02/21 08:20 O2 Flow Rate 2 11/02/21 08:20 BMI result Body Mass Index 26.6 Elderly Martiniquais-speaking male lying in bed in mild distress Tachypnea improved ; right-sided crackles+, no wheezing appreciated Neck supple, no JVD Irregular rate and rhythm, S1-S2 heard, no murmurs appreciated Abdomen soft, nontender, no guarding, no rigidity Patient is awake, alert and oriented x4, is conversational, no focal motor deficits Right-sided pitting edema + Objective Data Active Medications Acetaminophen (Acetaminophen 325 Mg Tablet) 650 mg PO Q6H PRN PRN Reason: Pain, Mild (Pain Scale 1-3) Artificial Tears (Artificial Tears 15 Ml Drops) 1 drop EYE-BOTH BID PRN PRN Reason: Dry Eye(S) Aspirin (Aspirin Enteric Coated 81 Mg Tablet.) 81 mg PO DAILY [facility] Last Admin: 11/02/21 08:19 Dose: 81 mg Documented By: FOREST Atorvastatin Calcium (Atorvastatin Calcium 40 Mg Tablet) 40 mg PO DAILY [facility] Last Admin: 11/02/21 08:19 Dose: 40 mg Documented By: FOREST Dextrose (Dextrose 50 % 25 Gm/50 Ml Syringe) 25 gm IVPUSH Q15M PRN; Protocol PRN Reason: per Hypoglycemia Standing Ord. Enoxaparin Sodium (Enoxaparin Sodium 30 Mg/0.3 Ml Syringe) 30 mg SUBCUT Q24H [facility] Last Admin: 11/01/21 15:22 Dose: 30 mg Documented By: FABIANA Glucose (Glucose Gel 15 Gm Gel..Gram.) 15 gm PO Q15M PRN; Protocol PRN Reason: per Hypoglycemia Standing Ord. Ceftriaxone Sodium 2 gm/ (Sodium Chloride) 50 mls @ 100 mls/hr IV Q24H [facility] Azithromycin 500 mg/ Sodium (Chloride) 250 mls @ 125 mls/hr IV Q24H [facility] Insulin Glargine (Insulin Glargine,Hum.Rec.Anlog 100 Unit/Ml 10 Ml Vial) 115 unit SUBCUT BEDTIME [facility] Last Admin: 11/01/21 21:28 Dose: 115 unit Documented By: DILCIA Insulin Human Lispro (Insulin Lispro 100 Unit/Ml 3 Ml Vial) 0 unit SUBCUT QIDACHS [facility]; Protocol Stop: 11/02/21 12:47 Last Admin: 11/02/21 08:47 Dose: Not Given Documented By: FOREST Non-Admin Reason: Duplicate Order Insulin Human Lispro (Insulin Lispro 100 Unit/Ml 3 Ml Vial) 30 unit SUBCUT BID@0800,1200 [facility] Last Admin: 11/02/21 08:48 Dose: Not Given Documented By: FOREST Non-Admin Reason: No Insulin Coverage Melatonin (Melatonin 3 Mg Tablet) 6 mg PO BEDTIME PRN PRN Reason: Insomnia Omeprazole (Omeprazole 20 Mg Capsule.Dr) 20 mg PO DAILY@0630 [facility] Last Admin: 11/02/21 08:19 Dose: 20 mg Documented By: FOREST Ondansetron HCl (Ondansetron Hcl 4 Mg/2 Ml Vial) 4 mg IVPUSH Q8H PRN PRN Reason: Nausea and Vomiting Pharmacy Consult (Consult Rx Perform Med Rec) 1 each MISCELLANE ONCE PRN PRN Reason: Consult order Senna (Sennosides 8.6 Mg Tablet) 17.2 mg PO BEDTIME PRN PRN Reason: Constipation Sodium Chloride (0.9 % Sodium Chloride Flush 3 Ml Syringe) 3 ml IVFLUSH QSHIFT [facility] Last Admin: 11/02/21 08:47 Dose: 3 ml Documented By: FOREST Labs CBC & Chem 7: 11/02/21 04:16 11/02/21 04:16 Labs: Laboratory Results - last 24 hr 11/01/21 11/01/21 11/01/21 09:41 09:42 09:42 MCV MCH MCHC RDW Plt Count MPV Immature Gran % (Auto) Neut % (Auto) Lymph % (Auto) Cocke % (Auto) Eos % (Auto) Baso % (Auto) Lymph # (Auto) Cocke # (Auto) Eos # (Auto) Baso # (Auto) Abs Immat Gran (auto) Absolute Neuts (auto) Absolute Nucleated RBC Nucleated RBC % (auto) Anion Gap 16 Estim Creat Clear Calc 28.1 Estimated GFR 28 POC Glucose Random Glucose 290 H D Lactic Acid 3.3 H* Lactic Acid F/U @ 2Hr Lactic Acid F/U @ 4Hr Calcium 8.9 Magnesium 1.9 Total Bilirubin 1.0 Direct Bilirubin 0.4 AST 15 ALT 16 Alkaline Phosphatase 62 Total Creatine Kinase 136 B-Natriuretic Peptide 19 Total Protein 6.7 Albumin 3.8 Lipase 30 Urine Color Urine Appearance Urine pH Ur Specific Strong Urine Protein Urine Glucose (UA) Urine Ketones Urine Blood Urine Nitrite Ur Leukocyte Esterase Urine RBC Urine WBC Ur Squamous Epith Cells Urine Bacteria Hyaline Casts Influenza Type A (PCR) Influenza Type B (PCR) RSV RNA Qual (PCR) SARS-CoV-2 RNA (RT-PCR) 11/01/21 11/01/21 11/01/21 10:24 12:14 12:49 MCV MCH MCHC RDW Plt Count MPV Immature Gran % (Auto) Neut % (Auto) Lymph % (Auto) Cocke % (Auto) Eos % (Auto) Baso % (Auto) Lymph # (Auto) Cocke # (Auto) Eos # (Auto) Baso # (Auto) Abs Immat Gran (auto) Absolute Neuts (auto) Absolute Nucleated RBC Nucleated RBC % (auto) Anion Gap Estim Creat Clear Calc Estimated GFR POC Glucose Random Glucose Lactic Acid Lactic Acid F/U @ 2Hr 2.3 H* Lactic Acid F/U @ 4Hr Calcium Magnesium Total Bilirubin Direct Bilirubin AST ALT Alkaline Phosphatase Total Creatine Kinase B-Natriuretic Peptide Total Protein Albumin Lipase Urine Color Yellow Urine Appearance Clear Urine pH 5.0 Ur Specific Strong 1.015 Urine Protein 30 (1+) H Urine Glucose (UA) >=1000 H Urine Ketones Negative Urine Blood Negative Urine Nitrite Negative Ur Leukocyte Esterase Negative Urine RBC 0-2 Urine WBC 0-5 Ur Squamous Epith Cells 0-2 Urine Bacteria None Seen Hyaline Casts 0-2 Influenza Type A (PCR) NEGATIVE Influenza Type B (PCR) NEGATIVE RSV RNA Qual (PCR) NEGATIVE SARS-CoV-2 RNA (RT-PCR) NEGATIVE 11/01/21 11/01/21 11/01/21 12:49 13:22 15:29 MCV MCH MCHC RDW Plt Count MPV Immature Gran % (Auto) Neut % (Auto) Lymph % (Auto) Cocke % (Auto) Eos % (Auto) Baso % (Auto) Lymph # (Auto) Cocke # (Auto) Eos # (Auto) Baso # (Auto) Abs Immat Gran (auto) Absolute Neuts (auto) Absolute Nucleated RBC Nucleated RBC % (auto) Anion Gap Estim Creat Clear Calc Estimated GFR POC Glucose 177 H Random Glucose Lactic Acid Cancelled Lactic Acid F/U @ 2Hr Lactic Acid F/U @ 4Hr 2.7 H* Calcium Magnesium Total Bilirubin Direct Bilirubin AST ALT Alkaline Phosphatase Total Creatine Kinase B-Natriuretic Peptide Total Protein Albumin Lipase Urine Color Urine Appearance Urine pH Ur Specific Strong Urine Protein Urine Glucose (UA) Urine Ketones Urine Blood Urine Nitrite Ur Leukocyte Esterase Urine RBC Urine WBC Ur Squamous Epith Cells Urine Bacteria Hyaline Casts Influenza Type A (PCR) Influenza Type B (PCR) RSV RNA Qual (PCR) SARS-CoV-2 RNA (RT-PCR) 11/01/21 11/01/21 11/02/21 17:33 21:26 04:16 MCV 86.2 MCH 28.3 MCHC 32.8 RDW 15.0 Plt Count 134 L MPV 10.6 Immature Gran % (Auto) 0.7 H Neut % (Auto) 78.6 H Lymph % (Auto) 12.7 L Cocke % (Auto) 7.1 Eos % (Auto) 0.7 Baso % (Auto) 0.2 Lymph # (Auto) 2.0 Cocke # (Auto) 1.1 Eos # (Auto) 0.1 Baso # (Auto) 0.0 Abs Immat Gran (auto) 0.11 H Absolute Neuts (auto) 12.3 H Absolute Nucleated RBC 0.000 Nucleated RBC % (auto) 0.0 Anion Gap Estim Creat Clear Calc Estimated GFR POC Glucose 332 H 313 H Random Glucose Lactic Acid Lactic Acid F/U @ 2Hr Lactic Acid F/U @ 4Hr Calcium Magnesium Total Bilirubin Direct Bilirubin AST ALT Alkaline Phosphatase Total Creatine Kinase B-Natriuretic Peptide Total Protein Albumin Lipase Urine Color Urine Appearance Urine pH Ur Specific Strong Urine Protein Urine Glucose (UA) Urine Ketones Urine Blood Urine Nitrite Ur Leukocyte Esterase Urine RBC Urine WBC Ur Squamous Epith Cells Urine Bacteria Hyaline Casts Influenza Type A (PCR) Influenza Type B (PCR) RSV RNA Qual (PCR) SARS-CoV-2 RNA (RT-PCR) 11/02/21 11/02/21 11/02/21 04:16 06:48 08:22 MCV MCH MCHC RDW Plt Count MPV Immature Gran % (Auto) Neut % (Auto) Lymph % (Auto) Cocke % (Auto) Eos % (Auto) Baso % (Auto) Lymph # (Auto) Cocke # (Auto) Eos # (Auto) Baso # (Auto) Abs Immat Gran (auto) Absolute Neuts (auto) Absolute Nucleated RBC Nucleated RBC % (auto) Anion Gap 14 Estim Creat Clear Calc 35.2 Estimated GFR 37 POC Glucose 63 121 H Random Glucose 81 D Lactic Acid Lactic Acid F/U @ 2Hr Lactic Acid F/U @ 4Hr Calcium 8.2 L D Magnesium Total Bilirubin Direct Bilirubin AST ALT Alkaline Phosphatase Total Creatine Kinase B-Natriuretic Peptide Total Protein Albumin Lipase Urine Color Urine Appearance Urine pH Ur Specific Strong Urine Protein Urine Glucose (UA) Urine Ketones Urine Blood Urine Nitrite Ur Leukocyte Esterase Urine RBC Urine WBC Ur Squamous Epith Cells Urine Bacteria Hyaline Casts Influenza Type A (PCR) Influenza Type B (PCR) RSV RNA Qual (PCR) SARS-CoV-2 RNA (RT-PCR) Assessment and Plan (1) Sepsis: Status: Acute (2) Pneumonia: Status: Acute (3) Generalized weakness: Status: Acute (4) Type 2 diabetes mellitus with diabetic polyneuropathy: Status: Acute (5) Chronic kidney disease, stage 3: Status: Acute (6) Essential hypertension: Status: Acute Plan This is a 76-year-old male with a pertinent history of insulin-dependent diabetes mellitus, CKD stage 3, essential hypertension who presents with shortness of breath and cough and is being admitted for sepsis and acute dyspnea due to community-acquired pneumonia. #. Sepsis due to community-acquired pneumonia #. Acute dyspnea in the setting of above #. Type A lactic acidosis - resolved -Patient is febrile on admission with lactic acidosis and leukocytosis. He is also tachypneic. Resuscitated with IV crystalloids as per sepsis protocol. Initiated empiric coverage for community-acquired pneumonia, azithromycin and Rocephin. Blood cultures obtained at the time of admission. #. Type 2 diabetes mellitus -will continue home basal bolus regimen. Also initiating Accu-Cheks with sliding scale insulin before meals and bedtime. #. Chronic kidney disease stage 3 -creatinine appears to be at baseline. Monitor and avoid nephrotoxins #. Essential hypertension -blood pressure low normal at the time of admission. Holding home antihypertensives, restart as appropriate. #. Lower extremity edema -likely due to venous insufficiency. No signs or symptoms of congestive heart failure. Venous ultrasound with no DVT #. Elevated troponin likely due to demand ischemia -patient without chest discomfort. Cardiology consulted. #. Generalized weakness in the setting of acute illness -consulting Physical therapy to evaluate and treat. Recommend discharge home with home PT Code status: Full code Diet: Diabetic diet DVT prophylaxis: Lovenox 30 mg daily Quality Stroke Does the patient have a stroke diagnosis?: No VTE Prior VTE?: No VTE Risk Level:: Medical - moderate - high VTE Device Contraindication: Treatment Not Indicated VTE Drug Contraindication: N/A - Med Ordered
--- NOTE | 2021-11-02 10:45 | MHC.CM.PN ---
CM MET WITH PT WITH THE ASSISTANCE OF [facility] [place] [employer] PT REPORTS HE LIVES WITH HIS AND IS INDEPENDENT WITH CARE PT DENIES USE OF HOME OR COMMUNITY SERVICES PT REPORTS HE USES A [facility] FOR DME PT SAYS HE HAS A HCP COMPLETED ALREADY NAMING HIS DAUGHTER, ANEL WORTHINGTON, HIS AGENT- COPY REQUESTED PT IS COVID VACCINATED X 4 PT STATES HIS PCP IS RICARDA WALLACE IMM DELIVERED, COPY SENT TO [facility] CURRENT DC PLAN IS HOME WITH NO SERVICES TO TRANSPORT
--- NOTE | 2021-11-02 11:08 | PM.CNCAR ---
History of Present Illness History of Present Illness Date of Service: 11/02/21 Requesting physician: Helena Ramos Consult reason: troponin elevation Chief complaint: sepsis due to pneumonia Narrative: I was consulted to see Hector in cardiology consultation today for elevated troponin. Patient present to the hospital yesterday a 913 with symptoms of fever, chills, shortness of breath as well as cough. On presentation patient was noted to have sepsis syndrome secondary to community-acquired pneumonia with findings in the right mid and lower lobes. Patient was then treated aggressively with sepsis protocol and started on IV antibiotics. Patient did not complain of any chest pain. However troponins were drawn initially negative and then slightly elevated up to a max of 118 with clear rise and fall pattern with troponin in the morning of 84. Denies any chest pain. This morning says he feels much better compared to yesterday when he came into the hospital. Has been receiving appropriate treatment so far. Patient has no prior history of cardiac issues including no history of coronary artery disease myocardial infarction or need for stent. He has multiple risk factors for cardiac issues including hypertension, diabetes, hyperlipidemia as well as chronic kidney disease. He has had no recent cardiac symptoms Review of Systems Constitutional: Constitutional: Reports body ache(s), Reports chills and Reports fever(s) Eyes: Eyes: Reports no additional eye complaints Cardiovascular: Cardiovascular: Reports no additional cardiovascular complaints and Reports dyspnea Respiratory: Respiratory: Reports cough and Reports dyspnea Gastrointestinal: Gastrointestinal: Reports no additional gastrointestinal complaints Genitourinary: Genitourinary: Reports no additional male genitourinary complaints Musculoskeletal: Musculoskeletal: Reports no additional musculoskeletal complaints Integumentary/Breasts: Skin/Breast: Reports system reviewed and no additional complaints, except as docu Neurologic: Reports system reviewed and no additional complaints, except as documented Psychiatric: Psychiatric: Reports no additional psychiatric complaints Endocrine: Endocrine: Reports no additional endocrine complaints Hematologic/Lymphatic: Hematologic/Lymphatic: Reports no additional hematologic/lymphatic complaints Allergic/Immunologic: Allergic/Immunologic: Reports no additional allergic/immunologic complaints [facility] Past Medical History Medical History BPH (benign prostatic hyperplasia) Carpal tunnel syndrome Cataracts, bilateral Chronic kidney disease, stage 3 Diverticulosis Erectile dysfunction Essential hypertension GERD (gastroesophageal reflux disease) Hyperlipidemia LDL goal <70 Kidney stones 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 Mother Diabetes mellitus Brother Diabetes mellitus Sister Diabetes mellitus Surgical History Surgical History Hx of colonoscopy Hx of lithotripsy Social History Social History Household Members: Spouse and Children Alcohol intake: never Patient Tobacco Use Status: Never used Tobacco Advance Directives: No service: No Current occupational status: retired [employer] Allergies Allergy/AdvReac Type Severity Reaction Status Date / Time No Known Allergies Allergy Mild N/A Verified 09/26/21 10:37 Active Medications: Current Medications Acetaminophen (Acetaminophen 325 Mg Tablet) 650 mg PO Q6H PRN PRN Reason: Pain, Mild (Pain Scale 1-3) Artificial Tears (Artificial Tears 15 Ml Drops) 1 drop EYE-BOTH BID PRN PRN Reason: Dry Eye(S) Aspirin (Aspirin Enteric Coated 81 Mg Tablet.Dr) 81 mg PO DAILY [facility] Last Admin: 11/02/21 08:19 Dose: 81 mg Atorvastatin Calcium (Atorvastatin Calcium 40 Mg Tablet) 40 mg PO DAILY [facility] Last Admin: 11/02/21 08:19 Dose: 40 mg Dextrose (Dextrose 50 % 25 Gm/50 Ml Syringe) 25 gm IVPUSH Q15M PRN; Protocol PRN Reason: per Hypoglycemia Standing Ord. Enoxaparin Sodium (Enoxaparin Sodium 30 Mg/0.3 Ml Syringe) 30 mg SUBCUT Q24H [facility] Last Admin: 11/01/21 15:22 Dose: 30 mg Glucose (Glucose Gel 15 Gm Gel..Gram.) 15 gm PO Q15M PRN; Protocol PRN Reason: per Hypoglycemia Standing Ord. Ceftriaxone Sodium 2 gm/ (Sodium Chloride) 50 mls @ 100 mls/hr IV Q24H [facility] Azithromycin 500 mg/ Sodium (Chloride) 250 mls @ 125 mls/hr IV Q24H [facility] Insulin Glargine (Insulin Glargine,Hum.Rec.Anlog 100 Unit/Ml 10 Ml Vial) 115 unit SUBCUT BEDTIME [facility] Last Admin: 11/01/21 21:28 Dose: 115 unit Insulin Human Lispro (Insulin Lispro 100 Unit/Ml 3 Ml Vial) 0 unit SUBCUT QIDACHS [facility]; Protocol Stop: 11/02/21 12:47 Last Admin: 11/02/21 08:47 Dose: Not Given Insulin Human Lispro (Insulin Lispro 100 Unit/Ml 3 Ml Vial) 30 unit SUBCUT BID@0800,1200 [facility] Last Admin: 11/02/21 08:48 Dose: Not Given Melatonin (Melatonin 3 Mg Tablet) 6 mg PO BEDTIME PRN PRN Reason: Insomnia Omeprazole (Omeprazole 20 Mg Capsule.Dr) 20 mg PO DAILY@0630 [facility] Last Admin: 11/02/21 08:19 Dose: 20 mg Ondansetron HCl (Ondansetron Hcl 4 Mg/2 Ml Vial) 4 mg IVPUSH Q8H PRN PRN Reason: Nausea and Vomiting Pharmacy Consult (Consult Rx Perform Med Rec) 1 each MISCELLANE ONCE PRN PRN Reason: Consult order Senna (Sennosides 8.6 Mg Tablet) 17.2 mg PO BEDTIME PRN PRN Reason: Constipation Sodium Chloride (0.9 % Sodium Chloride Flush 3 Ml Syringe) 3 ml IVFLUSH QSHIFT [facility] Last Admin: 11/02/21 08:47 Dose: 3 ml Home Medications Medication Instructions Recorded Confirmed Last Taken Type aspirin 81 mg tablet,delayed 81 mg PO DAILY 12/16/19 11/01/21 10/31/21 History release (Adult Aspirin Regimen) atorvastatin 40 mg tablet 40 mg PO DAILY 12/16/19 11/01/21 10/31/21 History chlorthalidone 25 mg tablet 25 mg PO DAILY 12/16/19 11/01/21 10/31/21 History losartan 100 mg tablet 100 mg PO DAILY 12/16/19 11/01/21 10/31/21 History carvedilol 3.125 mg tablet 3.125 mg PO BID 09/26/21 11/01/21 10/31/21 History amlodipine 10 mg tablet 1 tab PO DAILY@1500 11/01/21 11/01/21 10/31/21 History empagliflozin 10 mg tablet 10 mg PO DAILY 11/01/21 11/01/21 10/31/21 History (Jardiance) fexofenadine 180 mg tablet 180 mg PO DAILY 11/01/21 11/01/21 10/31/21 History insulin glargine U-300 conc 300 180 unit subcut BEDTIME 11/01/21 11/01/21 10/31/21 History unit/mL (1.5 mL) subcutaneous pen (Toujeo SoloStar U-300 Insulin) insulin lispro 100 unit/mL 40 unit subcut BIDWMEAL 11/01/21 11/01/21 10/31/21 History subcutaneous pen (Humalog KwikPen (U-100) Insulin) linagliptin 5 mg tablet (Tradjenta) 1 tab PO DAILY 11/01/21 11/01/21 10/31/21 History omeprazole 20 mg capsule,delayed 20 mg PO DAILY@0630 11/01/21 11/01/21 10/31/21 History release peg [id number] 1 1 drp ophthalmic (eye) BID PRN Dry 11/01/21 11/01/21 10/31/21 History %-0.2 %-0.2 % eye drops (Dry Eye Eye(S) Relief) pioglitazone 30 mg tablet 1 tab PO DAILY 11/01/21 11/01/21 10/31/21 History Physical Exam Vital Signs: Vital Signs: Last Vital Signs Temp 98.8 F 11/02/21 08:20 Pulse 68 11/02/21 08:20 Resp 16 11/02/21 08:20 BP 121/61 11/02/21 08:20 Pulse Ox 98 11/02/21 08:20 O2 Del Method 11/02/21 08:20 O2 Flow Rate 2 11/02/21 08:20 BMI result Body Mass Index 26.6 Const: General: cooperative, comfortable, no acute distress, alert, awake and tired appearing Nutritional Appearance: average body habitus Orientation/consciousness: patient oriented x3 Limitations: no limitations HEENT: Head: Yes normocephalic and Yes atraumatic Neck: Neck: Yes trachea midline, Yes supple and Yes no JVD Resp: Effort & Inspection: normal respiratory effort Auscultation: bronchial breath sounds on the right Cardio: Jugular venous distension: no JVD Palpation: normal PMI Rate: regular rate Rhythm: regular rhythm Heart sounds: S1 normal heart sound present, S2 normal heart sound present, no click, no gallops, no murmurs and no rubs Neuro: General: patient oriented x3 Objective Labs and Meds Result diagrams: 11/02/21 04:16 09/14/22 04:16 Lab results: Laboratory Results - last 24 hr 11/01/21 11/01/21 11/01/21 10:24 12:14 12:49 WBC RBC Hgb Hct MCV MCH MCHC RDW Plt Count MPV Immature Gran % (Auto) Neut % (Auto) Lymph % (Auto) [place] % (Auto) Eos % (Auto) Baso % (Auto) Lymph # (Auto) [place] # (Auto) Eos # (Auto) Baso # (Auto) Abs Immat Gran (auto) Absolute Neuts (auto) Absolute Nucleated RBC Nucleated RBC % (auto) Sodium Potassium Chloride Carbon Dioxide Anion Gap BUN Creatinine Estim Creat Clear Calc Estimated GFR POC Glucose Random Glucose Lactic Acid Lactic Acid F/U @ 2Hr Lactic Acid F/U @ 4Hr Calcium Troponin I High Sens 102.4 H* D Urine Color Yellow Urine Appearance Clear Urine pH 5.0 Ur Specific [place] 1.015 Urine Protein 30 (1+) H Urine Glucose (UA) >=1000 H Urine Ketones Negative Urine Blood Negative Urine Nitrite Negative Ur Leukocyte Esterase Negative Urine RBC 0-2 Urine WBC 0-5 Ur Squamous Epith Cells 0-2 Urine Bacteria None Seen Hyaline Casts 0-2 Influenza Type A (PCR) NEGATIVE Influenza Type B (PCR) NEGATIVE RSV RNA Qual (PCR) NEGATIVE SARS-CoV-2 RNA (RT-PCR) NEGATIVE 11/01/21 11/01/21 11/01/21 12:49 12:49 13:22 WBC RBC Hgb Hct MCV MCH MCHC RDW Plt Count MPV Immature Gran % (Auto) Neut % (Auto) Lymph % (Auto) [place] % (Auto) Eos % (Auto) Baso % (Auto) Lymph # (Auto) [place] # (Auto) Eos # (Auto) Baso # (Auto) Abs Immat Gran (auto) Absolute Neuts (auto) Absolute Nucleated RBC Nucleated RBC % (auto) Sodium Potassium Chloride Carbon Dioxide Anion Gap BUN Creatinine Estim Creat Clear Calc Estimated GFR POC Glucose 177 H Random Glucose Lactic Acid Cancelled Lactic Acid F/U @ 2Hr 2.3 H* Lactic Acid F/U @ 4Hr Calcium Troponin I High Sens Urine Color Urine Appearance Urine pH Ur Specific [place] Urine Protein Urine Glucose (UA) Urine Ketones Urine Blood Urine Nitrite Ur Leukocyte Esterase Urine RBC Urine WBC Ur Squamous Epith Cells Urine Bacteria Hyaline Casts Influenza Type A (PCR) Influenza Type B (PCR) RSV RNA Qual (PCR) SARS-CoV-2 RNA (RT-PCR) 11/01/21 11/01/21 11/01/21 15:29 16:24 17:33 WBC RBC Hgb Hct MCV MCH MCHC RDW Plt Count MPV Immature Gran % (Auto) Neut % (Auto) Lymph % (Auto) [place] % (Auto) Eos % (Auto) Baso % (Auto) Lymph # (Auto) [place] # (Auto) Eos # (Auto) Baso # (Auto) Abs Immat Gran (auto) Absolute Neuts (auto) Absolute Nucleated RBC Nucleated RBC % (auto) Sodium Potassium Chloride Carbon Dioxide Anion Gap BUN Creatinine Estim Creat Clear Calc Estimated GFR POC Glucose 332 H Random Glucose Lactic Acid Lactic Acid F/U @ 2Hr Lactic Acid F/U @ 4Hr 2.7 H* Calcium Troponin I High Sens 116.9 H* Urine Color Urine Appearance Urine pH Ur Specific [place] Urine Protein Urine Glucose (UA) Urine Ketones Urine Blood Urine Nitrite Ur Leukocyte Esterase Urine RBC Urine WBC Ur Squamous Epith Cells Urine Bacteria Hyaline Casts Influenza Type A (PCR) Influenza Type B (PCR) RSV RNA Qual (PCR) SARS-CoV-2 RNA (RT-PCR) 11/01/21 11/02/21 11/02/21 21:26 04:16 04:16 WBC 15.7 H RBC 3.78 L Hgb 10.7 L Hct 32.6 L MCV 86.2 MCH 28.3 MCHC 32.8 RDW 15.0 Plt Count 134 L MPV 10.6 Immature Gran % (Auto) 0.7 H Neut % (Auto) 78.6 H Lymph % (Auto) 12.7 L [place] % (Auto) 7.1 Eos % (Auto) 0.7 Baso % (Auto) 0.2 Lymph # (Auto) 2.0 [place] # (Auto) 1.1 Eos # (Auto) 0.1 Baso # (Auto) 0.0 Abs Immat Gran (auto) 0.11 H Absolute Neuts (auto) 12.3 H Absolute Nucleated RBC 0.000 Nucleated RBC % (auto) 0.0 Sodium 144 Potassium 4.1 Chloride 115 H Carbon Dioxide 19 L Anion Gap 14 BUN 30 H Creatinine 1.81 H Estim Creat Clear Calc 35.2 Estimated GFR 37 POC Glucose 313 H Random Glucose 81 D Lactic Acid Lactic Acid F/U @ 2Hr Lactic Acid F/U @ 4Hr Calcium 8.2 L D Troponin I High Sens Urine Color Urine Appearance Urine pH Ur Specific [place] Urine Protein Urine Glucose (UA) Urine Ketones Urine Blood Urine Nitrite Ur Leukocyte Esterase Urine RBC Urine WBC Ur Squamous Epith Cells Urine Bacteria Hyaline Casts Influenza Type A (PCR) Influenza Type B (PCR) RSV RNA Qual (PCR) SARS-CoV-2 RNA (RT-PCR) 11/02/21 11/02/21 11/02/21 06:48 08:22 09:43 WBC RBC Hgb Hct MCV MCH MCHC RDW Plt Count MPV Immature Gran % (Auto) Neut % (Auto) Lymph % (Auto) [place] % (Auto) Eos % (Auto) Baso % (Auto) Lymph # (Auto) [place] # (Auto) Eos # (Auto) Baso # (Auto) Abs Immat Gran (auto) Absolute Neuts (auto) Absolute Nucleated RBC Nucleated RBC % (auto) Sodium Potassium Chloride Carbon Dioxide Anion Gap BUN Creatinine Estim Creat Clear Calc Estimated GFR POC Glucose 63 121 H Random Glucose Lactic Acid 1.3 Lactic Acid F/U @ 2Hr Lactic Acid F/U @ 4Hr Calcium Troponin I High Sens Urine Color Urine Appearance Urine pH Ur Specific [place] Urine Protein Urine Glucose (UA) Urine Ketones Urine Blood Urine Nitrite Ur Leukocyte Esterase Urine RBC Urine WBC Ur Squamous Epith Cells Urine Bacteria Hyaline Casts Influenza Type A (PCR) Influenza Type B (PCR) RSV RNA Qual (PCR) SARS-CoV-2 RNA (RT-PCR) 11/02/21 09:43 WBC RBC Hgb Hct MCV MCH MCHC RDW Plt Count MPV Immature Gran % (Auto) Neut % (Auto) Lymph % (Auto) [place] % (Auto) Eos % (Auto) Baso % (Auto) Lymph # (Auto) [place] # (Auto) Eos # (Auto) Baso # (Auto) Abs Immat Gran (auto) Absolute Neuts (auto) Absolute Nucleated RBC Nucleated RBC % (auto) Sodium Potassium Chloride Carbon Dioxide Anion Gap BUN Creatinine Estim Creat Clear Calc Estimated GFR POC Glucose Random Glucose Lactic Acid Lactic Acid F/U @ 2Hr Lactic Acid F/U @ 4Hr Calcium Troponin I High Sens 84.0 H Urine Color Urine Appearance Urine pH Ur Specific [place] Urine Protein Urine Glucose (UA) Urine Ketones Urine Blood Urine Nitrite Ur Leukocyte Esterase Urine RBC Urine WBC Ur Squamous Epith Cells Urine Bacteria Hyaline Casts Influenza Type A (PCR) Influenza Type B (PCR) RSV RNA Qual (PCR) SARS-CoV-2 RNA (RT-PCR) ECG Interpretation: EKG shows normal sinus rhythm with lateral ST depression Imaging Radiologist's impression: Impressions Venous Duplex 11/01/21 13:05 IMPRESSION: No evidence for deep venous thrombosis in the visualized veins of the bilateral lower extremities. Assessment and Plan (1) NSTEMI (non-ST elevated myocardial infarction): Status: Acute Patient clearly has rise and fall in troponin although with minimal troponin elevation with EKG changes the suggestive of ischemia in the setting of acute medical illness with sepsis and community-acquired pneumonia with multiple underlying risk factors for coronary disease. This troponin elevation is secondary to demand ischemia and not a primary acute coronary syndrome event. Does not require IV heparin. However there is high likelihood of underlying coronary artery disease in patient with troponin elevation with medical issues. Will require at some point time once stabilized as outpatient to undergo ischemic evaluation with myocardial perfusion testing. Meanwhile I would suggest him to be on a low-dose aspirin therapy. His blood pressure is currently well optimized. Continue diabetes management. Continue statin therapy. Continue supportive current treatment for his acute medical illness including pneumonia aggressively. Will follow-up once patient is discharged without outpatient stress test. Echocardiogram can be ordered as inpatient to evaluate for LV systolic function regional wall motion abnormality. Will sign of the case at this point time. Thank you for allowing me to partake in his care Procedures Date of Service Date of Service: 11/02/21
[2021-11-02] MEDS: cefTRIAXone sodium 2 GM in 0.9 % Sodium Chloride 50 ML IV (11:39)
[2021-11-02 11:40] VITALS: BP 139/59; PULSE 64; RESP 16; O2SAT 95
[2021-11-02 12:48] LABS: Glucose, Whole Blood 121 mg/dL (60-115)
[2021-11-02] MEDS: Enoxaparin Sodium 30 MG/0.3 ML SYRINGE SUBCUT (12:57)
[2021-11-02] MEDS: Azithromycin 500 MG in 0.9 % Sodium Chloride 250 ML 125 MG IV (12:57)
[2021-11-02 16:10] VITALS: BP 128/51; PULSE 69; RESP 18; O2SAT 93
[2021-11-02 18:06] LABS: Glucose, Whole Blood 189 mg/dL (60-115)
[2021-11-02 19:37] VITALS: BP 146/59; PULSE 74; RESP 16; TEMP 36.7; O2SAT 95
[2021-11-02 21:29] LABS: Glucose, Whole Blood 225 mg/dL (60-115)
[2021-11-02] MEDS: Insulin Glargine,Hum.rec.anlog 100 UNIT/ML 10 ML VIAL 115 UNIT SUBCUT (22:55)
[2021-11-03] MEDS: 0.9 % Sodium Chloride Flush 3 ML SYRINGE IVFLUSH ×2 (01:02→08:23)
[2021-11-03] MEDS: Acetaminophen 325 MG TABLET 650 MG PO (01:05)
[2021-11-03 01:41] VITALS: BP 151/68; PULSE 76; RESP 18; TEMP 37; O2SAT 94
--- NOTE | 2021-11-03 03:37 | PC.NURSE ---
Patient arrived to ED overflow at 0130. No report from EDRN. This RN has requested report X2, still no call back at this time ([id number]).
--- NOTE | 2021-11-03 04:07 | PC.NURSE ---
Multiple attempts were made to give nurse to nurse report to ELICEO Aguirre at overflow unit. This RN called first time when patient was leaving ED to give report to ELICEO Aguirre and spoke to her directly-Timothy reported that she can not take report at this time d/t expecting two patients she already received a report on. This RN made several attempts to to give report to overflow RN-no answer to phone calls. Last phone call made at 04:03 -04:13 am-called x3 times-no one answered the phone.
--- NOTE | 2021-11-03 04:28 | PC.NURSE ---
This RN went to overflow unit and gave in person nurse to nurse report to overflow ELICEO Us.
[2021-11-03] MEDS: Omeprazole 20 MG CAPSULE.DR PO (05:27)
[2021-11-03 06:43] LABS: MANUAL DIFF FLAG NO
[2021-11-03 06:59] LABS: Basophils Percent Auto 0.2 % (0-2); Eosinophils Absolute Auto 0.2 X10*3/uL (0.0-0.4); Eosinophils Percent Auto 1.8 % (0-4); Hematocrit 34.5 % (42.0-52.0); Hemoglobin 11.1 g/dl (14.0-18.0); Imm Gran Pct Auto 0.8 % (0.0-0.4); Lymphocytes Absolute Auto 2.1 X10*3/uL (1.2-4.9); Lymphocytes Percent Auto 15.6 % (20-40); Mean Corpuscular HGB Conc 32.2 g/dl (31.0-36.0); Mean Corpuscular Hemoglobin 27.3 pg (27.0-33.0); Mean Platelet Volume 10.7 fL (9.4-12.4); Monocytes Absolute Auto 0.9 X10*3/uL (0.1-1.2); Monocytes Percent Auto 6.6 % (2-11); Neutrophils Absolute Auto 9.8 x10*3/uL (2.0-8.3); Platelet Count 148 X10*3/uL (160-400); Red Blood Count 4.06 X10*6/uL (4.60-5.80); Red Cell Distribution Width 14.9 % (11.0-16.0); White Blood Count 13.1 X10*3/uL (4.8-10.8)
[2021-11-03 07:07] LABS: Anion Gap 13 (12-20); Blood Urea Nitrogen 28 mg/dL (9-16); Calcium 8.7 mg/dL (8.4-10.2); Carbon Dioxide 20 mmol/L (22-29); Chloride 112 mmol/L (96-108); Creatinine Clr Calc Pharmacy 35.2; Estimated Glomerular Filt Rate 37; Glucose Random 88 mg/dL (60-115); Potassium 4.2 mmol/L (3.3-5.1); Sodium 141 mmol/L (135-145)
[2021-11-03 07:31] LABS: Glucose, Whole Blood 72 mg/dL (60-115)
[2021-11-03] MEDS: Insulin Lispro 100 UNIT/ML 3 ML VIAL 30 UNIT SUBCUT (08:21)
[2021-11-03] MEDS: Aspirin Enteric Coated 81 MG TABLET.DR PO (08:23)
[2021-11-03] MEDS: Atorvastatin Calcium 40 MG TABLET PO (08:23)
[2021-11-03 08:55] VITALS: BP 151/68; PULSE 76; O2SAT 94
--- NOTE | 2021-11-03 09:08 | PM.DS ---
DS: Providers Provider Date of Service: 11/03/21 Date of admission: 11/01/21 12:06 Primary care physician: [facility] Consults: 11/01/21 17:14 Consult to Cardiology Routine Consulting Provider: Tommy Jeffrey Reason for consultation: elevated troponin Has provider been notified: No DS: Diagnosis Discharge Diagnosis (1) NSTEMI (non-ST elevated myocardial infarction): Status: Acute (2) Sepsis: Status: Acute (3) Pneumonia: Status: Acute (4) Generalized weakness: Status: Acute (5) Type 2 diabetes mellitus with diabetic polyneuropathy: Status: Acute (6) Chronic kidney disease, stage 3: Status: Acute (7) Essential hypertension: Status: Acute DS: Summary Hospital Course Hospital Course: This is a 76-year-old male with a pertinent history of insulin-dependent diabetes mellitus, CKD stage 3, essential hypertension who presents with shortness of breath and cough and is being admitted for sepsis and acute dyspnea due to community-acquired pneumonia. #.? Sepsis due to community-acquired pneumonia #.? Acute dyspnea in the setting of above #.? Type A lactic acidosis -Patient was febrile on admission with lactic acidosis and leukocytosis.? Was also tachypneic.? Resuscitated with IV crystalloids as per sepsis protocol.? Initiated empiric coverage for community-acquired pneumonia, azithromycin and Rocephin.? Blood cultures obtained at the time of admission which remained negative throughout. Patient with significant improvement of symptoms and downtrending of leukocytosis prior to discharge. Patient will be discharged with p.o. antibiotics to complete antibiotic course #.? Elevated troponin likely due to demand ischemia -patient without chest discomfort.? Cardiology was consulted recommended outpatient ischemic evaluation with myocardial perfusion testing. Patient optimized with high-intensity statin and low-dose aspirin. #.? Type 2 diabetes mellitus with hyperglycemia -continued home basal bolus regimen and initiate patient on sliding scale insulin during hospital course #.? Acute kidney injury on Chronic kidney disease stage 3 -pre renal due to intravascular volume depletion. creatinine down trended with IV fluid resuscitation #.? Essential hypertension -blood pressure low normal at the time of admission.? Antihypertensives were held during hospital course but to be resumed prior to discharge. Titrate antihypertensives as an outpatient. #.? Lower extremity edema -likely due to venous insufficiency.? No signs or symptoms of congestive heart failure.? Venous ultrasound with no DVT #.? Generalized weakness in the setting of acute illness -consulting Physical therapy to evaluate and treat. Recommend discharge home with home PT Status at Discharge Functional status at discharge: independent ambulation Overall status at discharge: patient is progressing back to baseline Time Spent with Patient Time attestation: Total time spent providing and/or coordinating discharge services: Discharge coordination time: Greater than 30 minutes Quality: Safe Use of Opioids Does Pt have an Active Cancer Diagnosis on the Problem List?: No Quality: Stroke Does the patient have a stroke diagnosis?: No Physical Exam Vital Signs: Vital Signs: Last Vital Signs Temp 98.6 F 11/03/21 01:41 Pulse 76 11/03/21 08:55 Resp 18 11/03/21 01:41 BP 151/68 H 11/03/21 08:55 Pulse Ox 94 11/03/21 08:55 O2 Del Method 11/03/21 01:41 O2 Flow Rate 2 11/02/21 08:20 BMI result Body Mass Index 26.6 Elderly Hungarian-speaking male lying in bed in mild distress Tachypnea resolved ; right-sided crackles+, no wheezing appreciated Neck supple, no JVD regular rate and rhythm, S1-S2 heard, no murmurs appreciated Abdomen soft, nontender, no guarding, no rigidity Patient is awake, alert and oriented x4, is conversational, no focal motor deficits Right-sided pitting edema + DS: Data Data Completed and Pending Labs on day of discharge: Laboratory Results - last 24 hr 11/02/21 11/02/21 11/02/21 09:43 09:43 12:44 WBC RBC Hgb Hct MCV MCH MCHC RDW Plt Count MPV Immature Gran % (Auto) Neut % (Auto) Lymph % (Auto) [place] % (Auto) Eos % (Auto) Baso % (Auto) Lymph # (Auto) [place] # (Auto) Eos # (Auto) Baso # (Auto) Abs Immat Gran (auto) Absolute Neuts (auto) Absolute Nucleated RBC Nucleated RBC % (auto) Sodium Potassium Chloride Carbon Dioxide Anion Gap BUN Creatinine Estim Creat Clear Calc Estimated GFR POC Glucose 121 H Random Glucose Lactic Acid 1.3 Calcium Troponin I High Sens 84.0 H 11/02/21 11/02/21 11/03/21 17:45 21:23 06:16 WBC 13.1 H RBC 4.06 L Hgb 11.1 L Hct 34.5 L MCV 85.0 MCH 27.3 MCHC 32.2 RDW 14.9 Plt Count 148 L MPV 10.7 Immature Gran % (Auto) 0.8 H Neut % (Auto) 75.0 H Lymph % (Auto) 15.6 L [place] % (Auto) 6.6 Eos % (Auto) 1.8 Baso % (Auto) 0.2 Lymph # (Auto) 2.1 [place] # (Auto) 0.9 Eos # (Auto) 0.2 Baso # (Auto) 0.0 Abs Immat Gran (auto) 0.10 H Absolute Neuts (auto) 9.8 H Absolute Nucleated RBC 0.000 Nucleated RBC % (auto) 0.0 Sodium Potassium Chloride Carbon Dioxide Anion Gap BUN Creatinine Estim Creat Clear Calc Estimated GFR POC Glucose 189 H 225 H Random Glucose Lactic Acid Calcium Troponin I High Sens 11/03/21 11/03/21 06:16 07:26 WBC RBC Hgb Hct MCV MCH MCHC RDW Plt Count MPV Immature Gran % (Auto) Neut % (Auto) Lymph % (Auto) [place] % (Auto) Eos % (Auto) Baso % (Auto) Lymph # (Auto) [place] # (Auto) Eos # (Auto) Baso # (Auto) Abs Immat Gran (auto) Absolute Neuts (auto) Absolute Nucleated RBC Nucleated RBC % (auto) Sodium 141 Potassium 4.2 Chloride 112 H Carbon Dioxide 20 L Anion Gap 13 BUN 28 H Creatinine 1.81 H Estim Creat Clear Calc 35.2 Estimated GFR 37 POC Glucose 72 Random Glucose 88 Lactic Acid Calcium 8.7 D Troponin I High Sens Preliminary micro results at discharge 11/01/21 10:24 Blood Culture - Preliminary Blood - Venous No growth after 24 hours. 11/01/21 09:42 Blood Culture - Preliminary Blood - Venous No growth after 24 hours. Imaging Chest x-ray: Radiologist's impression: ITS Impressions Chest X-Ray 11/01/21 09:54 IMPRESSION: Right mid and lower lung patchy infiltrate are not seen previously and suggest an infectious/inflammatory process. Venous Duplex 11/01/21 13:05 IMPRESSION: No evidence for deep venous thrombosis in the visualized veins of the bilateral lower extremities. Discharge Plan Discharge Patient Disposition: Home, Self-Care Discharge Diagnosis: Sepsis due to community-acquired pneumonia Referrals: [facility] [Primary Care Provider] - 1 Week Discharge Medications: New amoxicillin-pot clavulanate 875-125 mg tablet 1 tab PO BID 3 Days Qty: 6 0RF azithromycin 500 mg tablet 500 mg PO DAILY 3 Days Qty: 3 0RF Continued (DME) blood-glucose meter [OneTouch Verio Meter] [facility] See Rx Instructions .ROUTE .MEDSUPPLY Qty: 1 0RF Rx Instructions: As directed 4x/day (DME) OneTouch Verio test strips Strip See Rx Instructions .ROUTE .MEDSUPPLY Qty: 150 11RF Rx Instructions: 4 x/day (DME) lancets [OneTouch Delica Lancets] 33 gauge misc See Rx Instructions .ROUTE .MEDSUPPLY Qty: 200 10RF Rx Instructions: four times a day insulin lispro [Humalog KwikPen Insulin] 100 unit/mL insulin pen See Rx Instructions subcut QID Qty: 45 4RF Rx Instructions: 45 units with breakfast and lunch..50 units with dinner, 10 units with snack subcut 4 times a day; amlodipine 10 mg tablet 1 tab PO DAILY@1500 pioglitazone 30 mg tablet 1 tab PO DAILY Tradjenta 5 mg tablet 1 tab PO DAILY Jardiance 10 mg tablet 10 mg PO DAILY fexofenadine 180 mg Tablet 180 mg PO DAILY omeprazole 20 mg Capsule,Delayed Release(Dr/Ec) 20 mg PO DAILY@0630 insulin lispro [Humalog KwikPen Insulin] 100 unit/mL insulin pen 40 unit subcut BIDWMEAL Rx Instructions: breakfast and lunch Dry Eye Relief 1-0.2-0.2 % Drops 1 drp OPHTHALMIC (EYE) BID PRN (Reason: Dry Eye(S)) Isidra Valentinar U-300 Insulin 300 unit/mL (1.5 mL) insulin pen 180 unit subcut BEDTIME losartan 100 mg tablet 100 mg PO DAILY atorvastatin 40 mg tablet 40 mg PO DAILY aspirin [Adult Aspirin Regimen] 81 mg tablet,delayed release (DR/EC) 81 mg PO DAILY carvedilol 3.125 mg tablet 3.125 mg PO BID Discontinued chlorthalidone 25 mg tablet 25 mg PO DAILY Discharge Orders: Discharge Order (Routine); Ordered 11/03/21 Ordered By: Helena Ramos Diet: Diabetic diet Activity on Discharge: As tolerated Stand Alone Forms: Patient Portal Discharge page Care Plan Goals: Optimize blood pressure Undergo outpatient ischemic evaluation with myocardial perfusion testing Health Concerns: Essential hypertension Diabetes mellitus Plan of Treatment: Follow up with PCP within one week Augmentin b.i.d. and azithromycin 500 mg daily x3 days Recommend outpatient stress test Assessment: As per discharge summary Patient Instructions: Pneumonia (DC)
[2021-11-03 09:52] VITALS: BP 131/62; PULSE 72; RESP 16; O2SAT 95
--- NOTE | 2021-11-03 09:59 | MHC.CM.PN ---
PT TO DC HOME TODAY WITH NO SERVICES VIA PRIVATE TRANSPORT
== END 2021-11-03 10:25 | disposition home or self-care (01) | DRG 194 ==
LOC: HO.ED 10:37 → HO.EDOVER 12:27
PROVIDERS: Physician Assistant; Admitting Provider Student in an Organized Health Care Education/Training Program; Emergency Provider Emergency Medicine; Visit Provider Student in an Organized Health Care Education/Training Program
DX: J18.9 Pneumonia, unspecified organism (principal); E87.2 Acidosis; I24.8 Other forms of acute ischemic heart disease; N18.30 Chronic kidney disease, stage 3 unspecified; E11.22 Type 2 diabetes mellitus with diabetic chronic kidney disease; E11.65 Type 2 diabetes mellitus with hyperglycemia; Z96.1 Presence of intraocular lens; E11.42 Type 2 diabetes mellitus with diabetic polyneuropathy; E78.5 Hyperlipidemia, unspecified; Z20.822 Contact with and (suspected) exposure to COVID-19; Z87.442 Personal history of urinary calculi; Z98.42 Cataract extraction status, left eye; Z98.41 Cataract extraction status, right eye; Z79.4 Long term (current) use of insulin; Z79.82 Long term (current) use of aspirin; Z79.899 Other long term (current) drug therapy
CPT/HCPCS: 0241U; 36415; 71045; 80048; 80076; 81001; 81003; 82550; 82947; 83605; 83690; 83735; 83880; 84484; 85025; 87040; 93005; 93970; 97116; 97162; 99285; J0456; J0696; J1650

== ENCOUNTER → 2021-11-17 07:55 | Outpatient (REF) | payer OTHER, SELFPAY ==
--- NOTE | ~2021-11-17 | NM_ITS ---
Lexiscan Myocardial perfusion study Indication: Elevated troponins, assess for coronary disease and ischemia Technique: The patient was brought in for a Lexiscan perfusion study on 11/17/2021 and was injected 0.4 mg of Lexiscan intravenously. Within a minute of this injection 25 mCi of sestamibi was given intravenously. Images were obtained using the SPECT gamma camera interlaced with the gating device. Images were obtained in supine position. Resting perfusion study was performed on 11/21/2021. Patient was administered 25 mCi of sestamibi intravenously at rest. Images were then obtained in supine position. Total DLP 106mGy-cm. Images were processed with the software and compared side to side in short axis, horizontal long axis and vertical long axis views. Findings: Raw acquisition reviewed. Prominent subdiaphragmatic tracer uptake in the intestines. The stress perfusion study showed shows prominent subdiaphragmatic tracer uptake near the inferior and inferolateral wall. Hence this area not well assessed. Other areas unremarkable. With CT attenuation correction, inferior/inferolateral assessment distal suboptimal. The gated study shows normal LV systolic function with calculated LVEF of 61%. LV cavity is normal in size. The gated study shows normal wall thickening and contraction of segments. Resting study shows no significant perfusion abnormality. Gating at rest reveals normal wall motion with ejection fraction at 59%. The findings are consistent with no clear defects in the septum, anterior, lateral magallanes and apex. Inferior/inferolateral magallanes not well assessed due to subdiaphragmatic tracer uptake. NM/NM denton perf SPECT rest & str Impression: 1. Myocardial perfusion imaging study shows no clear evidence of any ischemia or infarct in the septum, anterior wall, lateral wall. Inferior/inferolateral wall not adequately assessed due to intense subdiaphragmatic tracer uptake. 2. Gated LVEF is 61% during stress and 59% during rest. 3. Transient ischemic dilatation not present. EKG component of the test reported separately.
--- NOTE | 2021-11-17 07:58 | CA_ITS ---
Acquisition Time: 2021-11-17 08:26:19 Total Exercise Time: 00:02:00 Test Indications: [place] Medications: SEE CHART Protocol: LEXISCAN Max HR: 094 BPM 64% of Pred: 145 BPM Max BP: 140/068 mmHG Max Work Load: 1.6 METS Pharmacological stress test with Lexiscan injection, while walking slow on treadmill, without anginal symptoms, without arrythmia, with normotensive response to injection, with nondiagnostic EKG for ischemia. Nuclear images pending. Test reviewed with Dr Larose Referred By: Tommy Jeffrey Overread By: STUART BEARD
== END ==
LOC: HO.CARD 07:55
PROVIDERS: Visit Provider Internal Medicine Cardiovascular Disease
DX: I21.4 Non-ST elevation (NSTEMI) myocardial infarction (principal); I10 Essential (primary) hypertension; J18.9 Pneumonia, unspecified organism; R53.1 Weakness
CPT/HCPCS: 78452; 93017; A9500; J0280; J2785

== ENCOUNTER → 2021-11-25 08:35 | Outpatient (REF) | payer OTHER, SELFPAY | LOC: HO.CARD 08:35 | PROVIDERS: Visit Provider Internal Medicine Cardiovascular Disease | DX: I21.4 Non-ST elevation (NSTEMI) myocardial infarction (principal); I10 Essential (primary) hypertension; J18.9 Pneumonia, unspecified organism; R53.1 Weakness | CPT/HCPCS: 93306 ==

== ENCOUNTER → 2021-12-22 12:27 | Outpatient (BNVA) | payer OTHER, SELFPAY | PROVIDERS: PCP Family Medicine; Referring Provider Family Medicine; Visit Provider Internal Medicine Cardiovascular Disease | DX: R77.8 Other specified abnormalities of plasma proteins (principal); I11.9 Hypertensive heart disease without heart failure | CPT/HCPCS: 99212 ==

== ENCOUNTER 2021-12-26 06:34 | Outpatient (REF) | payer OTHER, SELFPAY ==
[2021-12-26 07:53] LABS: Anion Gap 17 (12-20); Blood Urea Nitrogen 35 mg/dL (9-16); Carbon Dioxide 21 mmol/L (22-29); Chloride 107 mmol/L (96-108); Cholesterol 120 mg/dL; Estimated Glomerular Filt Rate 30; Glucose Random 200 mg/dL (60-115); HDL Cholesterol 35 mg/dL; LDL Cholesterol Calculated 42 mg/dl; Potassium 4.7 mmol/L (3.3-5.1); Sodium 140 mmol/L (135-145); Triglycerides 219 mg/dL
[2021-12-26 08:02] LABS: Creatinine Urine 96.94 mg/dL; Microalbum/Creatinine Ratio Ur 483.8 ug/mg cr
[2021-12-27 16:07] LABS: LDL Cholesterol Direct 53 mg/dL (<100)
== END 2021-12-26 06:35 | disposition home or self-care (01) ==
LOC: HO.LAB 06:34
PROVIDERS: Nurse Practitioner Gerontology; PCP Family Medicine; Visit Provider Internal Medicine Endocrinology, Diabetes & Metabolism
DX: N18.32 Chronic kidney disease, stage 3b (principal); E11.21 Type 2 diabetes mellitus with diabetic nephropathy; E11.42 Type 2 diabetes mellitus with diabetic polyneuropathy; Z79.4 Long term (current) use of insulin
CPT/HCPCS: 36415; 80048; 80061; 82043; 83721

== ENCOUNTER → 2021-12-27 15:48 | Outpatient (BNVA) | payer OTHER, SELFPAY | PROVIDERS: PCP Family Medicine; Visit Provider Internal Medicine Endocrinology, Diabetes & Metabolism | DX: E11.42 Type 2 diabetes mellitus with diabetic polyneuropathy (principal); E11.65 Type 2 diabetes mellitus with hyperglycemia; E11.22 Type 2 diabetes mellitus with diabetic chronic kidney disease; I12.9 Hypertensive chronic kidney disease with stage 1 through stage 4 chronic kidney disease, or unspecified chronic kidney disease; N18.4 Chronic kidney disease, stage 4 (severe); Z79.4 Long term (current) use of insulin | CPT/HCPCS: 82947; 83036; 99212 ==

== ENCOUNTER 2022-01-16 23:07 | Emergency (ER) | payer OTHER, SELFPAY ==
[2022-01-16 23:19] VITALS: BP 187/81; PULSE 68; RESP 18; TEMP 36.1; O2SAT 97; BMI 24.3
[2022-01-16 23:30] LABS: Glucose, Whole Blood 98 mg/dL (60-115)
--- NOTE | 2022-01-16 23:50 | ED_ITS ---
HPI - General Adult General Chief complaint: General Medical Stated complaint: body pain Time Seen by Provider: 01/16/22 23:23 Source: patient and family Mode of arrival: EMS Limitations: no limitations History of Present Illness HPI narrative: Patient diabetic, hypertension on heavy doses of insulin takes 108 units of Lantus in the nighttime and 40 units of Humalog before meals for last 1 month patient has been having blood sugar running less than 50 has spoken to his PCP were advised him to eat more patient has decreased the dose of Lantus to 100 units now today he came because he took place in Lantus 100 units at 19:00 around 22:00 patient felt weak diaphoretic almost passing out it go up paste and some sugar checked his blood sugar was 80 when EMS came patient blood sugar was 58. No chest pain no seizure activity no fever or chills patient did not have proper dinner last night but took his insulin, no abdominal pain no nausea no vomiting Related Data Home Medications Medication Instructions Recorded Confirmed fexofenadine 180 mg tablet 180 mg PO DAILY 11/01/21 12/27/21 omeprazole 20 mg capsule,delayed 20 mg PO DAILY@0630 11/01/21 12/27/21 release peg [id number] 1 1 drp ophthalmic (eye) BID PRN Dry 11/01/21 12/27/21 %-0.2 %-0.2 % eye drops (Dry Eye Eye(S) Relief) pioglitazone 30 mg tablet 30 mg PO DAILY 12/22/21 12/27/21 amlodipine 10 mg tablet 10 mg PO QPM 12/27/21 12/27/21 carvedilol 3.125 mg tablet 3.125 mg PO 12/27/21 12/27/21 empagliflozin 10 mg tablet 10 mg PO QAM 12/27/21 12/27/21 (Jardiance) insulin glargine U-300 conc 300 110 unit subcut BEDTIME 12/27/21 12/27/21 unit/mL (1.5 mL) subcutaneous pen (Toujeo SoloStar U-300 Insulin) insulin lispro 100 unit/mL 1 sliding scale dose subcut QIDACHS 12/27/21 12/27/21 subcutaneous pen (Humalog KwikPen (U-100) Insulin) linagliptin 5 mg tablet (Tradjenta) 5 mg PO QAM 12/27/21 12/27/21 pantoprazole 40 mg tablet,delayed 40 mg PO QAM 12/27/21 12/27/21 release pen needle, diabetic 32 gauge x #50 ea 12/27/21 12/27/21 (Pentips) Previous Rx's Medication Instructions Recorded blood sugar diagnostic (OneTouch #150 ea 04/28/21 Verio test strips) blood-glucose meter (OneTouch #1 ea 04/28/21 Verio Meter) lancets 33 gauge (OneTouch Delica #200 ea 04/28/21 Lancets) Allergies Allergy/AdvReac Type Severity Reaction Status Date / Time No Known Allergies Allergy Mild N/A Verified 12/27/21 16:15 Review of Systems Review of Systems: Yes all other systems are reviewed and are negative [facility] Past Medical History Medical History BPH (benign prostatic hyperplasia) Carpal tunnel syndrome Cataracts, bilateral Chronic kidney disease, stage 3 Diverticulosis Erectile dysfunction Essential hypertension GERD (gastroesophageal reflux disease) Hyperlipidemia LDL goal <70 Kidney stones NSTEMI (non-ST elevated myocardial infarction) Pneumonia Sepsis 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 Mother Diabetes mellitus Brother Diabetes mellitus Sister Diabetes mellitus Social History Social History Household Members: Spouse and Children Alcohol intake: never Patient Tobacco Use Status: Never used Tobacco Advance Directives: No Advance Directives Information Provided: Yes service: No Current occupational status: retired Physical Exam ED Vital Signs: Vital Signs - 24 hr 01/16/22 23:19 Temperature 96.9 F Pulse Rate 68 Respiratory Rate 18 Blood Pressure 187/81 H Pulse Oximetry 97 Oxygen Delivery Method Room Air BMI result Body Mass Index 24.3 Appearance: Alert. Oriented X3. No acute distress. Eyes: PERRLA, No Nystagmus ENT: Pharynx normal. Oral Mucosa moist Neck: Normal inspection. Neck supple. CVS: Normal heart rate and rhythm. Pulses normal. Respiratory: No respiratory distress. Equal air entry bilateral, no wheezing/rales/rhonchi Abdomen: Soft and nontender. Bowel sounds are present, no mass palpable, no CVA tenderness Skin: Skin warm and dry. Normal skin color. Normal skin turgor. Extremities: No lower extremity edema. No calf tenderness Neuro: Oriented X 3. No motor deficit. No sensory deficit.No cerebellar signs , cranial nerves II-XII intact Medical Decision Making MDM Narrative Medical decision making narrative: Patient with CKD creatinine 2.37 which is almost his baseline not eating well but taking his insulin will decrease the dosage of Lantus to 75 units every night and decrease the dose of Humalog 30 units before meals advised to follow up with PCP patient had food in the ER repeat blood sugar was 120 Lab Data Lab results reviewed: Yes I reviewed the patient's lab results. Result diagrams: 01/17/22 00:10 01/17/22 00:10 Labs: Lab Results 01/16/22 01/17/22 01/17/22 Range/Units 23:26 00:10 00:10 WBC 8.1 (4.8-10.8) X10*3/uL RBC 4.55 L (4.60-5.80) X10*6/uL Hgb 12.6 L (14.0-18.0) g/dl Hct 39.5 L (42.0-52.0) % MCV 86.8 (80.0-98.0) fL MCH 27.7 (27.0-33.0) pg MCHC 31.9 (31.0-36.0) g/dl RDW 15.3 (11.0-16.0) % Plt Count 168 (160-400) X10*3/uL MPV 9.7 (9.4-12.4) fL Immature Gran % (Auto) 0.5 H (0.0-0.4) % Neut % (Auto) 77.6 H (45-73) % Lymph % (Auto) 11.8 L (20-40) % [place] % (Auto) 8.8 (2-11) % Eos % (Auto) 1.1 (0-4) % Baso % (Auto) 0.2 (0-2) % Lymph # (Auto) 1.0 L (1.2-4.9) X10*3/uL [place] # (Auto) 0.7 (0.1-1.2) X10*3/uL Eos # (Auto) 0.1 (0.0-0.4) X10*3/uL Baso # (Auto) 0.0 (0.0-0.2) X10*3/uL Abs Immat Gran (auto) 0.04 H (0.00-0.03) X10*3/uL Absolute Neuts (auto) 6.3 (2.0-8.3) x10*3/uL Absolute Nucleated RBC 0.000 (0.0-0.012) X10*3/uL Nucleated RBC % (auto) 0.0 (0.0-0.2) /100WBC Sodium 140 (135-145) mmol/L Potassium 4.1 (3.3-5.1) mmol/L Chloride 108 (96-108) mmol/L Carbon Dioxide 23 (22-29) mmol/L Anion Gap 13 (12-20) BUN 37 H (9-16) mg/dL Creatinine 2.37 H (0.5-1.4) mg/dL Estim Creat Clear Calc 26.9 Estimated GFR 27 POC Glucose 98 (60-115) mg/dL Random Glucose 117 H (60-115) mg/dL Calcium 8.9 (8.4-10.2) mg/dL Total Bilirubin 0.6 (0.0-1.0) mg/dL AST 21 (5-37) U/L ALT 16 (0-40) U/L Alkaline Phosphatase 70 (39-117) U/L Total Protein 7.1 (6.5-8.0) g/dL Albumin 4.0 (3.5-5.0) g/dL COVID-19 (JAY) (Negative) COVID-19 Clin Com 01/17/22 Range/Units 00:10 WBC (4.8-10.8) X10*3/uL RBC (4.60-5.80) X10*6/uL Hgb (14.0-18.0) g/dl Hct (42.0-52.0) % MCV (80.0-98.0) fL MCH (27.0-33.0) pg MCHC (31.0-36.0) g/dl RDW (11.0-16.0) % Plt Count (160-400) X10*3/uL MPV (9.4-12.4) fL Immature Gran % (Auto) (0.0-0.4) % Neut % (Auto) (45-73) % Lymph % (Auto) (20-40) % [place] % (Auto) (2-11) % Eos % (Auto) (0-4) % Baso % (Auto) (0-2) % Lymph # (Auto) (1.2-4.9) X10*3/uL [place] # (Auto) (0.1-1.2) X10*3/uL Eos # (Auto) (0.0-0.4) X10*3/uL Baso # (Auto) (0.0-0.2) X10*3/uL Abs Immat Gran (auto) (0.00-0.03) X10*3/uL Absolute Neuts (auto) (2.0-8.3) x10*3/uL Absolute Nucleated RBC (0.0-0.012) X10*3/uL Nucleated RBC % (auto) (0.0-0.2) /100WBC Sodium (135-145) mmol/L Potassium (3.3-5.1) mmol/L Chloride (96-108) mmol/L Carbon Dioxide (22-29) mmol/L Anion Gap (12-20) BUN (9-16) mg/dL Creatinine (0.5-1.4) mg/dL Estim Creat Clear Calc Estimated GFR POC Glucose (60-115) mg/dL Random Glucose (60-115) mg/dL Calcium (8.4-10.2) mg/dL Total Bilirubin (0.0-1.0) mg/dL AST (5-37) U/L ALT (0-40) U/L Alkaline Phosphatase (39-117) U/L Total Protein (6.5-8.0) g/dL Albumin (3.5-5.0) g/dL COVID-19 (JAY) Negative (Negative) COVID-19 Clin Com See Note Discharge Plan Discharge Clinical Impression: Hypoglycemia associated with diabetes, Chronic kidney disease, stage 3 Patient Disposition: Home, Self-Care Instructions: Chronic Kidney Disease (ED), Hypoglycemia in a Person with Diabetes (ED) Additional Instructions: Drink plenty of fluids Decrease the dose of Lantus insulin to 70 units in the nighttime Decrease the dose of Humalog to 30 units before meals Do not miss your meals if you are taking your insulin Prescriptions: No Action (DME) blood-glucose meter [OneTouch Verio Meter] Misc See Rx Instructions .ROUTE .MEDSUPPLY Qty: 1 0RF Rx Instructions: As directed 4x/day (DME) OneTouch Verio test strips Strip See Rx Instructions .ROUTE .MEDSUPPLY Qty: 150 11RF Rx Instructions: 4 x/day (DME) lancets [OneTouch Delica Lancets] 33 gauge misc See Rx Instructions .ROUTE .MEDSUPPLY Qty: 200 10RF Rx Instructions: four times a day fexofenadine 180 mg Tablet 180 mg PO DAILY omeprazole 20 mg Capsule,Delayed Release(Dr/Ec) 20 mg PO DAILY@0630 Dry Eye Relief 1-0.2-0.2 % Drops 1 drp OPHTHALMIC (EYE) BID PRN (Reason: Dry Eye(S)) pioglitazone 30 mg tablet 30 mg PO DAILY pantoprazole 40 mg tablet,delayed release (DR/EC) 40 mg PO QAM carvedilol 3.125 mg tablet 3.125 mg PO Toujeo SoloStar U-300 Insulin 300 unit/mL (1.5 mL) insulin pen 110 unit subcut BEDTIME insulin lispro [Humalog KwikPen Insulin] 100 unit/mL insulin pen 1 sliding scale dose subcut QIDACHS Rx Instructions: 45 units, 50 units, 10 units Jardiance 10 mg tablet 10 mg PO QAM Tradjenta 5 mg tablet 5 mg PO QAM amlodipine 10 mg tablet 10 mg PO QPM (DME) pen needle, diabetic [Pentips] 32 gauge x needle See Rx Instructions .ROUTE .MEDSUPPLY Qty: 50 Rx Instructions: As directed
[2022-01-17 00:19] LABS: MANUAL DIFF FLAG NO
[2022-01-17 00:20] LABS: Basophils Percent Auto 0.2 % (0-2); Eosinophils Absolute Auto 0.1 X10*3/uL (0.0-0.4); Eosinophils Percent Auto 1.1 % (0-4); Hematocrit 39.5 % (42.0-52.0); Hemoglobin 12.6 g/dl (14.0-18.0); Imm Gran Abs Auto 0.04 X10*3/uL (0.00-0.03); Imm Gran Pct Auto 0.5 % (0.0-0.4); Lymphocytes Percent Auto 11.8 % (20-40); Mean Corpuscular HGB Conc 31.9 g/dl (31.0-36.0); Mean Corpuscular Hemoglobin 27.7 pg (27.0-33.0); Mean Corpuscular Volume 86.8 fL (80.0-98.0); Mean Platelet Volume 9.7 fL (9.4-12.4); Monocytes Absolute Auto 0.7 X10*3/uL (0.1-1.2); Monocytes Percent Auto 8.8 % (2-11); Neutrophils Absolute Auto 6.3 x10*3/uL (2.0-8.3); Neutrophils Percent Auto 77.6 % (45-73); Platelet Count 168 X10*3/uL (160-400); Red Blood Count 4.55 X10*6/uL (4.60-5.80); Red Cell Distribution Width 15.3 % (11.0-16.0); White Blood Count 8.1 X10*3/uL (4.8-10.8)
[2022-01-17 00:32] LABS: COVID-19 Test Negative (Negative); IDNOW Serial# 16C4AD1C
[2022-01-17 00:57] LABS: Alanine Aminotransferase 16 U/L (0-40); Alkaline Phosphatase 70 U/L (39-117); Anion Gap 13 (12-20); Aspartate Amino Transferase 21 U/L (5-37); Bilirubin Total 0.6 mg/dL (0.0-1.0); Blood Urea Nitrogen 37 mg/dL (9-16); Calcium 8.9 mg/dL (8.4-10.2); Carbon Dioxide 23 mmol/L (22-29); Chloride 108 mmol/L (96-108); Creatinine Clr Calc Pharmacy 26.9; Estimated Glomerular Filt Rate 27; Glucose Random 117 mg/dL (60-115); Potassium 4.1 mmol/L (3.3-5.1); Sodium 140 mmol/L (135-145); Total Protein 7.1 g/dL (6.5-8.0)
[2022-01-17 01:18] LABS: Glucose, Whole Blood 120 mg/dL (60-115)
[2022-01-17 07:36] LABS: Estimated Average Glucose 166 mg/dL; Hemoglobin A1c % 7.4 %
== END 2022-01-17 01:28 | disposition home or self-care (01) ==
PROVIDERS: Emergency Provider Internal Medicine
DX: M79.10 Myalgia, unspecified site (principal); E11.65 Type 2 diabetes mellitus with hyperglycemia; I12.9 Hypertensive chronic kidney disease with stage 1 through stage 4 chronic kidney disease, or unspecified chronic kidney disease; E11.22 Type 2 diabetes mellitus with diabetic chronic kidney disease; N18.30 Chronic kidney disease, stage 3 unspecified; Z20.822 Contact with and (suspected) exposure to COVID-19; Z79.899 Other long term (current) drug therapy
CPT/HCPCS: 36415; 80053; 82947; 83036; 85025; 87635; 99282; 99283

== ENCOUNTER → 2022-03-29 08:55 | Outpatient (BNVA) | payer OTHER, SELFPAY | PROVIDERS: PCP Family Medicine; Visit Provider Internal Medicine Endocrinology, Diabetes & Metabolism | DX: E11.42 Type 2 diabetes mellitus with diabetic polyneuropathy (principal); Z79.4 Long term (current) use of insulin | CPT/HCPCS: 82947; 99212 ==

== ENCOUNTER → 2022-06-28 09:54 | Outpatient (BNVA) | payer OTHER, SELFPAY | PROVIDERS: PCP Family Medicine; Visit Provider Registered Nurse Diabetes Educator | DX: E11.42 Type 2 diabetes mellitus with diabetic polyneuropathy (principal); Z79.4 Long term (current) use of insulin | CPT/HCPCS: 99211 ==

== ENCOUNTER → 2022-07-11 08:31 | Outpatient (BNVA) | payer OTHER, SELFPAY | PROVIDERS: PCP Family Medicine; Visit Provider Internal Medicine Endocrinology, Diabetes & Metabolism | DX: E11.65 Type 2 diabetes mellitus with hyperglycemia (principal); E11.42 Type 2 diabetes mellitus with diabetic polyneuropathy; E11.22 Type 2 diabetes mellitus with diabetic chronic kidney disease; I12.9 Hypertensive chronic kidney disease with stage 1 through stage 4 chronic kidney disease, or unspecified chronic kidney disease; N18.30 Chronic kidney disease, stage 3 unspecified; E78.5 Hyperlipidemia, unspecified; Z79.4 Long term (current) use of insulin | CPT/HCPCS: 82947; 83036; 99212 ==

== ENCOUNTER → 2022-08-04 10:31 | Outpatient (BNVA) | payer OTHER, SELFPAY | PROVIDERS: PCP Family Medicine; Visit Provider Internal Medicine Gastroenterology | DX: K21.9 Gastro-esophageal reflux disease without esophagitis (principal); K22.70 Barrett's esophagus without dysplasia | CPT/HCPCS: 99212 ==

== ENCOUNTER → 2022-08-15 09:28 | Outpatient (BNVA) | payer OTHER, SELFPAY | PROVIDERS: PCP Family Medicine; Visit Provider Registered Nurse Diabetes Educator | DX: E11.42 Type 2 diabetes mellitus with diabetic polyneuropathy (principal); Z79.4 Long term (current) use of insulin | CPT/HCPCS: 99211 ==

== ENCOUNTER 2022-08-24 13:19 | Outpatient (REF) | payer OTHER, SELFPAY | END 2022-08-24 13:20 | disposition home or self-care (01) | LOC: HO.US 13:19 | PROVIDERS: PCP Family Medicine; Visit Provider Registered Nurse | DX: Z13.89 Encounter for screening for other disorder (principal) ==

== ENCOUNTER 2022-08-29 08:12 | Outpatient (REF) | payer OTHER, SELFPAY ==
--- NOTE | ~2022-08-29 | US_ITS ---
EXAMINATION: RIGHT and LEFT LOWER EXTREMITY VENOUS ULTRASOUND (Reflux Exam) CLINICAL INDICATION: leg pain and varicose veins. Chronic leg swelling. COMPARISON: Previous bilateral lower extremity venous ultrasound October 2021 TECHNIQUE: Color flow triplex imaging and compression Doppler was performed to evaluate both the deep and the superficial systems bilaterally. To evaluate the superficial system, the examination was performed in the upright position. Color-flow Doppler ultrasound and compression ultrasound were utilized. In addition, maneuvers were utilized to demonstrate reflux. FINDINGS: 1. DEEP VENOUS ULTRASOUND OF THE RIGHT LOWER EXTREMITY: Respiratory variation, normal compression and augmented flow are noted in the right common femoral vein as well as the right popliteal vein and there is no evidence of deep venous thrombosis at these locations. There is no evidence of reflux in the deep system in either the common femoral vein or the popliteal vein. There is no evidence of a Hagen's cyst. 2. SUPERFICIAL ULTRASOUND WITH DOPPLER OF RIGHT LOWER EXTREMITY: The right great saphenous vein at the saphenofemoral junction measures 7 mm, at the mid thigh 4 mm, [id number] 3 mm, [id number] 3 mm, at mid calf 3 mm and at the ankle measures 3 mm. There is no reflux demonstrated in the right great saphenous vein. The right small saphenous vein measures 2-3 mm. There are near occlusive/occlusive changes from likely old thrombus in the small saphenous vein with wall thickening and calcification and echogenic material adjacent to the wall of the vein and diminished compression. This extends to 1.7 cm from the saphenofemoral popliteal junction. There is a physician surgeon that communicate with the greater saphenous vein in the calf. This measures 2 mm and does not demonstrate reflux. 3. DEEP VENOUS ULTRASOUND OF THE LEFT LOWER EXTREMITY: Respiratory variation, normal compression and augmented flow are noted in the left common femoral vein as well as the left popliteal vein and there is no evidence of deep venous thrombosis at these locations. There is no evidence of reflux in the deep system in either the common femoral vein or the popliteal vein. . There is no evidence of a Hagen's cyst. 4. SUPERFICIAL ULTRASOUND WITH DOPPLER OF LEFT LOWER EXTREMITY: Left great saphenous vein at the saphenofemoral junction measures 8 mm, at the mid thigh 4 mm, [id number]-[id number] 3 mm, gvckw-izg-[id number] 3 mm, at mid calf 3 mm and at the ankle measures 3 mm. There is no reflux demonstrated in the left great saphenous vein. The left small saphenous vein measures 2-4 mm and shows no reflux. There are changes from old DVT in the left small saphenous vein in the upper calf with wall thickening and increased echogenicity adjacent to the wall. This is 2.6 cm from the saphenofemoral popliteal junction. The small saphenous vein in the more inferior calf is patent. There are perforators in the calf that communicates with the right greater saphenous vein. These measure 2 and 6 mm and do not demonstrate reflux. US/US venous duplex LE BI IMPRESSION: 1. No evidence of reflux or thrombus in the common femoral veins or popliteal veins bilaterally. 2. The greater saphenous systems are competent bilaterally. Evidence of old thrombus in the bilateral small saphenous veins, right greater than left.
== END 2022-08-29 08:13 | disposition home or self-care (01) ==
LOC: HO.US 08:12
PROVIDERS: PCP Family Medicine; Visit Provider Registered Nurse
DX: R60.0 Localized edema (principal)
CPT/HCPCS: 93970

== ENCOUNTER 2022-08-31 11:40 | Outpatient (REF) | payer OTHER, SELFPAY ==
[2022-08-31 13:16] LABS: Appearance Urine Clear; Glucose Urine UA >=1000 mg/dL (Negative); Leukocyte Esterase Urine Negative (Negative); Nitrite Urine Negative (Negative); PH 5.5 (5.0-9.0); UMIC TRIGGER UA YES; Urine Blood Negative (Negative); Urine Ketones Negative (Negative); Urine Protein 100 (2+) mg/dL (Neg-Trace)
[2022-08-31 13:19] LABS: Bacteria Urine None Seen (None Seen); Color Urine Yellow; Hyaline Casts Urine 0-2 /LPF (0-2); RBC Urine 0-2 /HPF (0-2); Squamous Epithelial Cell Urine 0-2 /HPF (0-2); WBC Urine 0-5 /HPF (0-5)
[2022-08-31 13:19] LABS: MANUAL DIFF FLAG NO
[2022-08-31 13:42] LABS: Estimated Average Glucose 148 mg/dL; Hemoglobin A1c % 6.8 %
[2022-08-31 13:44] LABS: Basophils Percent Auto 0.5 % (0-2); Eosinophils Absolute Auto 0.2 X10*3/uL (0.0-0.4); Eosinophils Percent Auto 2.6 % (0-4); Hematocrit 44.6 % (42.0-52.0); Imm Gran Abs Auto 0.05 X10*3/uL (0.00-0.03); Imm Gran Pct Auto 0.8 % (0.0-0.4); Lymphocytes Absolute Auto 1.6 X10*3/uL (1.2-4.9); Lymphocytes Percent Auto 24.1 % (20-40); Mean Corpuscular HGB Conc 31.4 g/dl (31.0-36.0); Mean Corpuscular Hemoglobin 27.3 pg (27.0-33.0); Mean Corpuscular Volume 86.9 fL (80.0-98.0); Mean Platelet Volume 11.1 fL (9.4-12.4); Monocytes Absolute Auto 0.5 X10*3/uL (0.1-1.2); Monocytes Percent Auto 8.2 % (2-11); Neutrophils Absolute Auto 4.1 x10*3/uL (2.0-8.3); Neutrophils Percent Auto 63.8 % (45-73); Platelet Count 173 X10*3/uL (160-400); Red Blood Count 5.13 X10*6/uL (4.60-5.80); Red Cell Distribution Width 15.8 % (11.0-16.0); White Blood Count 6.5 X10*3/uL (4.8-10.8)
[2022-08-31 14:28] LABS: Anion Gap 14 (12-20); Blood Urea Nitrogen 33 mg/dL (9-16); Calcium 10.4 mg/dL (8.4-10.2); Carbon Dioxide 22 mmol/L (22-29); Chloride 113 mmol/L (96-108); Cholesterol 114 mg/dL; Estimated Glomerular Filt Rate 30; Glucose Random 138 mg/dL (60-115); HDL Cholesterol 36 mg/dL; LDL Cholesterol Calculated 39 mg/dl; Potassium 5.1 mmol/L (3.3-5.1); Sodium 144 mmol/L (135-145); Triglycerides 196 mg/dL
[2022-09-01 17:43] LABS: Calcium (PTHI) 9.5 mg/dL (8.6-10.3); PTHI 59 pg/mL (16-77)
[2022-09-06 14:38] LABS: VITAMIN D (1,25 OH) D3 23 pg/mL; Vit D (1,25-Dihydroxy) Total 23 pg/mL (18-72); Vitamin D (1,25 OH) D2 <8 pg/mL
== END 2022-08-31 11:41 | disposition home or self-care (01) ==
LOC: HO.CHCLDS 11:40
PROVIDERS: Visit Provider Family Medicine
DX: R60.0 Localized edema (principal); N18.9 Chronic kidney disease, unspecified
CPT/HCPCS: 36415; 80048; 80061; 81001; 82652; 83036; 83970; 85025

== ENCOUNTER 2022-09-06 08:51 | Outpatient (REF) | payer OTHER, SELFPAY ==
[2022-09-06 12:11] LABS: Blood Urea Nitrogen 30 mg/dL (9-16); Calcium 9.4 mg/dL (8.4-10.2); Chloride 111 mmol/L (96-108); Estimated Glomerular Filt Rate 29; Potassium 4.6 mmol/L (3.3-5.1); Sodium 141 mmol/L (135-145)
[2022-09-06 19:19] LABS: Carbon Dioxide 17 mmol/L (22-29)
== END 2022-09-06 08:52 | disposition home or self-care (01) ==
LOC: HO.HHCL 08:51
PROVIDERS: Visit Provider Physician Assistant
DX: E87.70 Fluid overload, unspecified (principal)
CPT/HCPCS: 36415; 80051; 82310; 82565; 84520

== ENCOUNTER 2022-09-19 08:57 | Outpatient (AMB) | payer OTHER, SELFPAY ==
--- NOTE | 2022-09-19 09:02 | MHC.AMDMED ---
Intake Intake Visit Reasons: dm 2 Senior Hris Analyst Required: Yes Senior Hris Analyst Language: Svp Of Digital Name: Jarvis [facility] [place] Information Interpreted: non-clinical & clinical Accompanied by: Self / Same As Patient Allergies No Known Allergies Allergy (Mild, Verified 08/04/22 10:37) N/A HPI Comprehensive Diabetes Asmnt Most Recent Diabetes Results: Cholesterol 114 mg/dL 08/31/22 HDL Cholesterol 36 mg/dL 08/31/22 Triglycerides 196 mg/dL 08/31/22 Creatinine 2.24 mg/dL (0.5-1.4) H 09/06/22 Blood Urea Nitrogen 30 mg/dL (9-16) H 09/06/22 Sodium 141 mmol/L (135-145) 09/06/22 Potassium 4.6 mmol/L (3.3-5.1) 09/06/22 Chloride 111 mmol/L (96-108) H 09/06/22 Carbon Dioxide 17 mmol/L (22-29) L 09/06/22 Calcium 9.4 mg/dL (8.4-10.2) 09/06/22 PFSH Medical History BPH (benign prostatic hyperplasia) Carpal tunnel syndrome Cataracts, bilateral Chronic kidney disease, stage 3 Diverticulosis Erectile dysfunction Essential hypertension GERD (gastroesophageal reflux disease) Hyperlipidemia LDL goal <70 Kidney stones NSTEMI (non-ST elevated myocardial infarction) Pneumonia Sepsis 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 Mother Diabetes mellitus Brother Diabetes mellitus Sister Diabetes mellitus Social History Household Members: Spouse and Children Alcohol intake: never Patient Tobacco Use Status: Never used Tobacco service: No Current occupational status: retired Assessment & Plan Assessment & Plan (1) Type 2 diabetes mellitus with diabetic polyneuropathy: Code(s): E11.42 - Type 2 diabetes mellitus with diabetic polyneuropathy Qualifiers: Diabetes mellitus extermination inspector insulin use: with prison use Qualified Code(s): E11.42 - Type 2 diabetes mellitus with diabetic polyneuropathy; Z79.4 - intermediate manager (current) use of insulin Plan: Personal Continuous Glucose Monitor: Patients CGM information reviewed Reviewed patient's sensor data: Hypoglycemia: ? 0% Hyperglycemia:? 37% Time in Range:? 63% Average glucose for the last 2 weeks? 172 mg/dL Patient's time in range has improved since last visit Patient reports he is taking Toujeo 108 units Humalog 2 units before morning coffee Humalog 20 units before breakfast, lunch and dinner Reviewed how to interpret trend arrows Reminded patient that to check finger sticks if symptoms do not match sensor reading. Discussed lag time between finger stick and sensor data.? Patient able to insert sensor independently at home without issue.? See instructions for patient below Order for Dexcom G7 sensor sent to [facility] Patient Instructions: Patient Observer Humalog 20 unidades antes del desayuno Humalog 22 unidades antes del almuerzo tome Humalog 20 unidades antes de la rex. seguimiento con enfermera de educaci?n diab?[facility] en un [facility] Coding Level of Care Code Est Pt Level 1 (43760) Diagnoses Type 2 diabetes mellitus with diabetic polyneuropathy E11.42; Z79.4 Diabetes mellitus prison insulin use: with prison use
== END 2022-09-19 09:50 | disposition home or self-care (01) ==
PROVIDERS: PCP Family Medicine; Visit Provider Registered Nurse Diabetes Educator
DX: E11.42 Type 2 diabetes mellitus with diabetic polyneuropathy (principal); Z79.4 Long term (current) use of insulin

== ENCOUNTER → 2022-09-19 08:57 | Outpatient (BNVA) | payer OTHER, SELFPAY | PROVIDERS: PCP Family Medicine; Visit Provider Registered Nurse Diabetes Educator | DX: E11.65 Type 2 diabetes mellitus with hyperglycemia (principal); E11.22 Type 2 diabetes mellitus with diabetic chronic kidney disease; E11.42 Type 2 diabetes mellitus with diabetic polyneuropathy; I12.9 Hypertensive chronic kidney disease with stage 1 through stage 4 chronic kidney disease, or unspecified chronic kidney disease; N18.30 Chronic kidney disease, stage 3 unspecified; N52.1 Erectile dysfunction due to diseases classified elsewhere; Z79.4 Long term (current) use of insulin | CPT/HCPCS: 99211 ==

== ENCOUNTER 2022-11-08 09:30 | Outpatient (AMB) | payer OTHER, SELFPAY ==
--- NOTE | 2022-11-08 09:33 | MHC.OFFVIS ---
Intake Vital Signs 11/08/22 09:34 Height 5 ft 9 in Weight 182 lb 15.739 oz BMI 27.0 BP 142/70 H Blood Pressure Location Lt brachial Position Sitting Pulse 71 Intake Visit Reasons: NPV/Swelling/S. Deisy/HHC Intake Note: NPV w/ EKG Rolloff Truck Driver Required: Yes Rolloff Truck Driver Language: Security Test Engineer Name: Miguel [id number] Accompanied by: Self / Same As Patient Allergies No Known Allergies Allergy (Mild, Verified 11/08/22 09:37) N/A Medication List - Last Reviewed 11/08/22 by Kirstie Menchaca amlodipine 10 mg PO QPM aspirin 81 mg PO BEDTIME atorvastatin 40 mg PO BEDTIME blood sugar diagnostic ([employer] Verio test strips) 4 x/day blood-glucose meter ([email or web address] Verio Meter) As directed 4x/day carvedilol 3.125 mg PO BID empagliflozin (Jardiance) 25 mg PO QAM furosemide 20 mg PO QAM insulin glargine U-300 conc (Toujeo SoloStar U-300 Insulin) 108 units (0.36 mL) subcut BEDTIME insulin lispro (Humalog KwikPen (U-100) Insulin) 20 units subcutaneously ; inject 45 units breakfast and lunch and 50 units with dinner; lancets ([email or web address] Delica Lancets) four times a day linagliptin (Tradjenta) 5 mg PO QAM loratadine 10 mg PO Q OTHER DAY losartan 100 mg PO QPM pantoprazole 40 mg PO QAM 90 days peg [id number] 1-0.2-0.2 % (Dry Eye Relief) 1 drp ophthalmic (eye) BID PRN pen needle, diabetic (Pentips) As directed 4 TIMES A DAY pioglitazone 30 mg PO DAILY HPI HPI Comments History of Present Illness Details This is a patient of Dr. Jeffrey but has been booked for me today. Seen by Dr. Doran last year. It seems that he had acute medical illness/sepsis and in that setting, he had elevated troponin levels. Then underwent ischemic workup with a stress test but that was unremarkable. He also had echocardiogram that showed LVH. Overall, patient states he is actually doing quite well. No complaints like angina or shortness of breath or in fact anything cardiac sounding. Blood pressure is on the higher side today and it has been higher even at home apparently. Discussed with patient using corporate executive chef. 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 Mother Diabetes mellitus Brother Diabetes mellitus Sister Diabetes mellitus Social History Household Members: Spouse and Children Alcohol intake: never Patient Tobacco Use Status: Never used Tobacco service: No Current occupational status: retired Review of Systems Const Denies weakness ENT Denies dizziness Card Denies chest pain, Denies chest pain with activity, Denies syncope, Denies rapid heart rate, Denies pedal edema, Denies edema, Denies leg edema, Denies lightheadedness, Denies palpitations, Denies dyspnea, Denies dyspnea on exertion and Denies orthopnea Resp Denies cough, Denies dyspnea and Denies dyspnea on exertion GI Denies hematochezia and Denies change in stool character Musc Denies abnormal gait, Denies muscle cramps, Denies muscle weakness, Denies numbness, Denies radiating pain into limb and Denies tingling Neuro Denies abnormal gait, Denies dizziness, Denies syncope, Denies numbness, Denies tingling and Denies weakness Endo Denies palpitations Physical Exam Vital Signs: Last Vital Signs Pulse 71 11/08/22 09:34 BP 142/70 H 11/08/22 09:34 BMI result Body Mass Index 27.0 Const General: comfortable and no acute distress Orientation/consciousness: patient oriented x3 HEENT Other: Unremarkable Head: Yes normal to inspection Neck Neck: Yes normal visual inspection Chest Chest palpation & inspection: normal inspection of the chest Resp Auscultation: clear to auscultation bilaterally Cardio Palpation: normal PMI Heart sounds: S1 normal heart sound present, S2 normal heart sound present, no gallops, no murmurs and no rubs GI Palpation (GI): Soft to palpation Back/Spine/Pelvis Other: unremarkable Skin General skin exam: no rashes or lesions noted Neuro General: patient oriented x3 Extrem General: Yes normal to inspection Psych Mental Status: mental status grossly normal Office Procedures EKG Details: EKG with sinus rhythm at 71/Min; inverted T-waves lead 1 and aVL. Changes have been seen before. [id number], Complete Assessment & Plan Assessment & Plan (1) Hypertensive heart disease: Code(s): I11.9 - Hypertensive heart disease without heart failure Qualifiers: Heart failure presence: without heart failure Qualified Code(s): I11.9 - Hypertensive heart disease without heart failure Plan Echocardiogram with LVEF of 60-65%; moderate left ventricular hypertrophy and mild diastolic dysfunction. Lexiscan myocardial perfusion imaging study without any clear ischemia or infarction in the septum/anterior wall/lateral wall. Inferior/inferolateral wall not adequately assessed due to subdiaphragmatic uptake. Clinically, he does not have any anginal-type symptoms at all. Overall, optimize blood pressure management. We will increase the carvedilol to 6.25 mg b.i.d.. Otherwise, he is also on amlodipine as well as losartan. Otherwise, risk factor modification of diabetes and dyslipidemia. We will see him back in 1 year for follow-up with an echocardiogram. Total time spent including review of data, counseling, documentation, coordination of care-33 minutes. Orders: Orders CA echo transthoracic complete 51 Weeks I11.9 - Hypertensive heart disease without heart failure Medications: New carvedilol (Coreg) must administer with a meal/food 6.25 mg PO BID 180 tabs 3RF 90 days I11.9 - Hypertensive heart disease without heart failure Coding Level of Care Code Est Pt Level 4 (14493) Diagnoses Hypertensive heart disease without heart failure I11.9 Heart failure presence: without heart failure CPT Codes EKG - CPT: 95744-[id number], Complete ([id number])
[2022-11-08 09:34] VITALS: BP 142/70; PULSE 71; BMI 27.0
== END 2022-11-08 10:59 | disposition home or self-care (01) ==
PROVIDERS: PCP Family Medicine; Visit Provider Internal Medicine
DX: I11.9 Hypertensive heart disease without heart failure (principal)
CPT/HCPCS: 93010; 99214

== ENCOUNTER → 2022-11-08 09:30 | Outpatient (BNVA) | payer OTHER, SELFPAY | PROVIDERS: PCP Family Medicine; Visit Provider Internal Medicine | DX: I11.9 Hypertensive heart disease without heart failure (principal) | CPT/HCPCS: 93005; 99212 ==

== ENCOUNTER 2022-11-15 10:51 | Outpatient (REF) | payer OTHER, SELFPAY ==
[2022-11-15 13:53] LABS: Anion Gap 15 (12-20); Blood Urea Nitrogen 37 mg/dL (9-16); Calcium 9.8 mg/dL (8.4-10.2); Carbon Dioxide 25 mmol/L (22-29); Chloride 106 mmol/L (96-108); Estimated Glomerular Filt Rate 24; Glucose Random 150 mg/dL (60-115); Potassium 4.5 mmol/L (3.3-5.1); Sodium 141 mmol/L (135-145)
[2022-11-16 04:32] LABS: ~HepC Num1 0.11 S/CO (0.00-0.79); ~Hepatitis C Antibody Nonreactive (Nonreactive)
== END 2022-11-15 10:52 | disposition home or self-care (01) ==
LOC: HO.HHCL 10:51
PROVIDERS: Visit Provider Family Medicine
DX: Z11.59 Encounter for screening for other viral diseases (principal); N18.4 Chronic kidney disease, stage 4 (severe)
CPT/HCPCS: 36415; 80048; 86803

== ENCOUNTER 2022-12-21 06:48 | Outpatient (RCR) | payer OTHER, SELFPAY ==
[2022-12-21 07:12] VITALS: BP 167/74; PULSE 69
== END 2023-01-16 08:00 | disposition home or self-care (01) ==
LOC: HO.PT 06:48
PROVIDERS: PCP Family Medicine; Visit Provider Family Medicine
DX: M79.672 Pain in left foot (principal); M79.671 Pain in right foot
CPT/HCPCS: 97110; 97161

== ENCOUNTER 2023-01-08 07:55 | Outpatient (AMB) | payer OTHER, SELFPAY ==
[2023-01-08 07:56] VITALS: BP 140/52; PULSE 72; BMI 27.1
--- NOTE | 2023-01-08 07:56 | A.OFFVIS_ITS ---
Intake Vital Signs 01/08/23 07:56 Height 5 ft 9 in Weight 183 lb 6.793 oz BMI 27.1 BP 140/52 H Blood Pressure Location Lt brachial Position Sitting Pulse 72 Pulse Source Pulse Oximeter Intake Visit Reasons: f/u Type 2 DM Intake Note: Patient present today to follow up on Type 2 Diabetes Mellitus. Patient receives DME supplies through: [facility] Last Diabetic Eye exam: 10/2022 Last Podiatry Visit: None Random Glucose: 107 mg/dl HgA1C: 6.5 Sports Medicine Coordinator Required: Yes Sports Medicine Coordinator Language: News Clipping Cutter Name: [facility] Information Interpreted: non-clinical & clinical Accompanied by: Self / Same As Patient Allergies No Known Allergies Allergy (Mild, Verified 01/08/23 08:02) N/A Medication List - Last Reconciled 01/08/23 by Merlin Mcghee MD amlodipine 10 mg PO QPM aspirin 81 mg PO BEDTIME atorvastatin 40 mg PO BEDTIME blood sugar diagnostic ([employer] Verio test strips) 4 x/day blood-glucose meter ([employer] Verio Meter) As directed 4x/day carvedilol (Coreg) 6.25 mg PO BID 90 days empagliflozin (Jardiance) 25 mg PO QAM furosemide 20 mg PO QAM insulin glargine U-300 conc (Toujeo SoloStar U-300 Insulin) 108 units (0.36 mL) subcut BEDTIME insulin lispro (Humalog KwikPen (U-100) Insulin) 20 units subcutaneously ; inject 45 units breakfast and lunch and 50 units with dinner; lancets ([employer] Delica Lancets) four times a day linagliptin (Tradjenta) 5 mg PO QAM loratadine 10 mg PO Q OTHER DAY losartan 100 mg PO QPM pantoprazole 40 mg PO QAM 90 days peg [id number] 1-0.2-0.2 % (Dry Eye Relief) 1 drp ophthalmic (eye) BID PRN pen needle, diabetic (Pentips) As directed 4 TIMES A DAY pioglitazone 30 mg PO DAILY HPI HPI Comments History of Present Illness Details Patient is a 76 yo male with DM type 2 diagnosed at 49 years of age,who presents for continued management diabetes. . He does see nephrology. Past medical history includes : DM2, HTN,HLD,MMR1v-0 Micro and macrovascular complications: +retinopathy, +nephropathy, Diabetes medications: [id number] units daily Humalog 20 units with with B and L and 24 units before dinner , if blood glucose over 200 he may add 4 units.. pioglitazone 30mg Tradjenta 5 mg/daily. Jardiance 25mg. Intolerant of Trulicity due to diarrhea. Blood glucose monitoring: Dexcom download shows the sensors be 193% of the time. Average glucose is 175 with standard deviation 57 and G NH of 7.5%. 58% range with 40% hyperglycemia and 1% hypoglycemia. Pattern shows increases in point care after lunch Hypoglycemia: : 3X wk before bed Hyperglycemia: + polyuria, + nocturia 1-2x/night, + polydypsia Exercise: Limited Eye Exam: - saw optho 2 mos ago no retinopathy Labs received from [facility] her dated 03/18/2021: Creatinine 2.56 Estimated GFR 24 Laboratory Tests 08/09/20 09/05/20 09:10 17:18 Creatinine 2.03 H Estimated GFR 32 Hgb A1c (Clinic) 12.7 H 08/09/20 09/05/20 09:10 17:18 Creatinine 2.03 H Estimated GFR 32 Hgb A1c (Clinic) 12.7 H PFSH Medical History BPH (benign prostatic hyperplasia) Carpal tunnel syndrome Cataracts, bilateral Chronic kidney disease, stage 3 Diverticulosis Erectile dysfunction Essential hypertension GERD (gastroesophageal reflux disease) Hyperlipidemia LDL goal <70 Kidney stones NSTEMI (non-ST elevated myocardial infarction) Pneumonia Sepsis 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 Mother Diabetes mellitus Brother Diabetes mellitus Sister Diabetes mellitus Social History Household Members: Spouse and Children Alcohol intake: never Patient Tobacco Use Status: Never used Tobacco service: No Current occupational status: retired Physical Exam Vital Signs: Last Vital Signs Pulse 72 01/08/23 07:56 BP 140/52 H 01/08/23 07:56 BMI result Body Mass Index 27.1 Absence of Cushingoid features. Absence of acromegalic features. Neck exam reveals nl size thyroid about 15 gms. No thyroid nodules palpable. No carotid bruits present. Lungs CTA. Heart S1 S2, Reg R/R. No M/R/ G. Skin exam reveals absence of vitiligo or acanthosis nigricans. Abdominal exam reveals Soft NT/ND with NA BS. No organomegaly present. Neck Other: . Extrem Other: Visual exam of foot performed. No ulcerations or open lesions. No onchomycosis, no callouses.Pulses 2 + distally Sensation intact to monofilament exam. Vibratory sensation sensed is decreased with 128 Hz tuning fork. There is 2+ edema around the ankles Results AMB Hemoglobin A1c AMB Hemoglobin A1c 6.5 % Last Edit by Anne Brewer on 01/08/23 08:14 Results Reviewed Results Reviewed: Laboratory Last Values Glucose (Clinic) 107 mg/dL (60-115) 01/08/23 08:03 Assessment & Plan Assessment & Plan (1) Type 2 diabetes mellitus with diabetic polyneuropathy: Code(s): E11.42 - Type 2 diabetes mellitus with diabetic polyneuropathy Qualifiers: Diabetes mellitus termite exterminator helper insulin use: with [facility]ci use Qualified Code(s): E11.42 - Type 2 diabetes mellitus with diabetic polyneuropathy; Z79.4 - jail (current) use of insulin Plan: This 76-year-old male with a history of type 2 diabetes being treated with Tradjenta, Jardiance, Actos and basal-bolus insulin with excellent but adequate glycemic control and known microvascular complications namely neuropathy and CKD stage 4. Glycemic control is adequate considering patient's age and comorbidities an A1c goal would be <7.5 Plan is to decrease the Humalog before supper to maximum 20 units to avoid late- night hypoglycemia. Orders: Orders AMB Hemoglobin A1c Today E11.42 - Type 2 diabetes mellitus with diabetic polyneuropathy Coding Level of Care Code Est Pt Level 4 (41553) Diagnoses Type 2 diabetes mellitus with diabetic polyneuropathy, with long-term current use of insulin E11.42; Z79.4 Diabetes mellitus termite exterminator helper insulin use: with termite exterminator helper use
[2023-01-08 08:08] LABS: Glucose, Whole Blood 107 mg/dL (60-115)
== END 2023-01-08 08:16 | disposition home or self-care (01) ==
PROVIDERS: PCP Physician Assistant; Visit Provider Internal Medicine Endocrinology, Diabetes & Metabolism
DX: E11.42 Type 2 diabetes mellitus with diabetic polyneuropathy (principal); Z79.4 Long term (current) use of insulin
CPT/HCPCS: 99214

== ENCOUNTER → 2023-01-08 07:55 | Outpatient (BNVA) | payer OTHER, SELFPAY | PROVIDERS: Visit Provider Internal Medicine Endocrinology, Diabetes & Metabolism | DX: E11.42 Type 2 diabetes mellitus with diabetic polyneuropathy (principal); Z79.4 Long term (current) use of insulin | CPT/HCPCS: 82947; 83036; 99212 ==

== ENCOUNTER 2023-02-11 18:08 | Emergency (ER) | payer OTHER, SELFPAY ==
--- NOTE | ~2023-02-11 | CT_ITS ---
EXAMINATION: CT HEAD WITHOUT CONTRAST (STROKE PROTOCOL) CLINICAL INFORMATION: Stroke protocol. Left-sided weakness. COMPARISON: None available. TECHNIQUE: Contiguous axial imaging was performed from the skull base to vertex without intravenous administration of contrast. This CT examination was performed using dose optimization techniques as appropriate, variously including the following: *Automated exposure control *Adjustment of mA and/or kV according to patient size (this includes techniques or standardized protocols for targeted exams where dose is matched to indication/reason for exam; i.e. extremities or head) *Use of iterative reconstruction technique DLP: 1496 mGy-cm FINDINGS: There is an acute right thalamic bleed measuring 2.6 cm in craniocaudad 1.9 cm in AP and 1.3 cm wide. There is mild mass effect on adjacent lateral ventricle with minimal midline shift to left. No extra-axial bleed seen. There is no acute infarction in evolution. Bone windows reveal no calvarial abnormality. There is no scalp soft tissue normality. Bilateral paranasal sinuses and mastoid air cells are well-aerated.. CT/CT head for stroke IMPRESSION: Acute right thalamic bleed. This critical result was discussed with Dr. Rios at 6:26 pm. on 02/11/2023. It was ascertained that the content and urgency of the report was understood at the time of direct communication.
--- NOTE | ~2023-02-11 | XR_ITS ---
EXAMINATION: XR chest 1V CLINICAL INFORMATION: Reason for Exam Stroke COMPARISON: Prior chest x-ray 11/01/2021 TECHNIQUE: Single portable frontal view. Tubes and lines: None Lungs and pleura: Both lungs are clear. Heart and mediastinum: The mediastinum is within normal limits.. Bones/soft tissue: Skeletal structures included are normal for patient's age. XR/XR chest 1V IMPRESSION: No radiographic evidence of acute cardiopulmonary disease.
--- NOTE | 2023-02-11 18:14 | ECG_ITS ---
Test Reason : STROKE Blood Pressure : / mmHG Vent. Rate : 064 BPM Atrial Rate : 064 BPM P-R Int : 146 ms QRS Dur : 076 ms QT Int : 428 ms P-R-T Axes : 027 069 101 degrees QTc Int : 441 ms Normal sinus rhythm Normal ECG When compared with ECG of 01-NOV-2021 17:37, T wave inversion less evident in Lateral leads Referred By: Catherine Rios Electronically Signed By:YENIFER AGUILAR MD
--- NOTE | 2023-02-11 18:18 | ED.NEUROSD ---
HPI - Neuro Symptoms/Deficit General Chief Complaint: Stroke Stated Complaint: suspected stroke Time Seen by Provider: 02/11/23 18:14 Source: patient, family (Daughter), EMS and old records reviewed Mode of arrival: EMS Limitations: altered mental status History of Present Illness HPI Narrative: 77-year-old male came in as a stroke protocol by EMS. Patient last known to well was 30 minutes before arrival, family found him in the bathroom with left body weakness, unable to speak and left facial droop called 911, initial stroke exam showed left hemipareses with left facial droop and aphasia with right gaze. Patient with known history of hypertension takes amlodipine, carvedilol. Not taking AC. As per family patient is not compliant with his hypertension medication. Related Data Home Medications Medication Instructions Recorded Confirmed peg [id number] 1 1 drp ophthalmic (eye) BID PRN Dry 11/01/21 11/08/22 %-0.2 %-0.2 % eye drops (Dry Eye Eye(S) Relief) pioglitazone 30 mg tablet 30 mg PO DAILY 12/22/21 11/08/22 amlodipine 10 mg tablet 10 mg PO QPM 12/27/21 11/08/22 furosemide 20 mg tablet 20 mg PO QAM 03/29/22 11/08/22 loratadine 10 mg tablet 10 mg PO Q OTHER DAY allergies 03/29/22 11/08/22 pen needle, diabetic 32 gauge x #50 ea 03/29/22 11/08/22 (Pentips) aspirin 81 mg tablet,delayed 81 mg PO BEDTIME 07/11/22 11/08/22 release atorvastatin 40 mg tablet 40 mg PO BEDTIME 07/11/22 11/08/22 empagliflozin 25 mg tablet 25 mg PO QAM 08/04/22 11/08/22 (Jardiance) losartan 100 mg tablet 100 mg PO QPM 08/04/22 11/08/22 Previous Rx's Medication Instructions Recorded blood sugar diagnostic (OneTouch #150 ea 04/28/21 Verio test strips) blood-glucose meter (OneTouch #1 ea 04/28/21 Verio Meter) lancets 33 gauge (OneTouch Delica #200 ea 04/28/21 Lancets) pantoprazole 40 mg tablet,delayed 40 mg PO QAM 90 days #90 tabs 08/17/22 release insulin lispro 100 unit/mL 20 unit (0.2 mL) subcut .COMPLEX 08/24/22 subcutaneous pen (Humalog KwikPen #45 mL (U-100) Insulin) insulin glargine U-300 conc 300 108 unit (0.36 mL) subcut BEDTIME 10/24/22 unit/mL (1.5 mL) subcutaneous pen #4.5 mL (Toujeo SoloStar U-300 Insulin) carvedilol 6.25 mg tablet (Coreg) 6.25 mg PO BID 90 days #180 tabs 11/08/22 linagliptin 5 mg tablet (Tradjenta) 5 mg PO QAM #30 tabs 01/25/23 Allergies Allergy/AdvReac Type Severity Reaction Status Date / Time No Known Allergies Allergy Mild N/A Verified 01/08/23 08:02 Review of Systems Review of Systems: All other systems are reviewed and are negative Constitutional: Reports as per HPI and Reports no additional constitutional complaints Eyes: Reports as per HPI and Reports no additional eye complaints Reports system reviewed and no additional complaints, except as documented Cardiovascular: Reports as per HPI and Reports no additional cardiovascular complaints Respiratory: Reports as per HPI and Reports no additional respiratory complaints Gastrointestinal: Reports as per HPI and Reports no additional gastrointestinal complaints Genitourinary: Reports no additional female genitourinary complaints Musculoskeletal: Reports no additional musculoskeletal complaints Skin/Breast: Reports system reviewed and no additional complaints, except as docu Psychiatric: Reports no additional psychiatric complaints Endocrine: Reports no additional endocrine complaints Hematologic/Lymphatic: Reports no additional hematologic/lymphatic complaints Allergic/Immunologic: Reports no additional allergic/immunologic complaints Reports system reviewed and no additional complaints, except as documented and Reports Abnormal speech present [facility] Past Medical History Medical History NSTEMI (non-ST elevated myocardial infarction) Sepsis Pneumonia Type 2 diabetes mellitus with diabetic polyneuropathy Diverticulosis Erectile dysfunction BPH (benign prostatic hyperplasia) Carpal tunnel syndrome Cataracts, bilateral GERD (gastroesophageal reflux disease) Kidney stones Type 2 diabetes mellitus with chronic kidney disease Chronic kidney disease, stage 3 Type 2 diabetes mellitus with hyperglycemia Essential hypertension Hyperlipidemia LDL goal <70 Surgical History Hx of colonoscopy Hx of lithotripsy Family History Family History Father No problems noted. Mother Diabetes mellitus Brother Diabetes mellitus Sister Diabetes mellitus Social History Social History Household Members: Spouse and Children Alcohol intake: never Patient Tobacco Use Status: Never used Tobacco Advance Directives: No Advance Directives Information Provided: No service: No Current occupational status: retired Physical Exam Vital Signs: Vital Signs: Last Vital Signs Temp 98.0 F 02/11/23 18:20 Pulse 71 02/11/23 19:30 Resp 16 02/11/23 19:30 BP 143/48 H 02/11/23 19:30 Pulse Ox 96 02/11/23 19:30 O2 Del Method Room Air 02/11/23 19:30 BMI result Body Mass Index 26.9 Vital signs have been reviewed and appear to be correct. Blood pressure elevated. Heart rate normal. Respiratory rate normal. Temperature normal. Oxygen saturation normal. Appearance: Alert. Oriented X3. No acute distress. Head: Normal external exam. Normocephalic. Atraumatic. No Pierce signs noted. No raccoon eyes noted Eyes: PERRLA. EOMI. Conjunctiva and sclera normal. Eyelids normal. ENT: TM's Normal. Pharynx normal. Uvula midline. Moist mucous membranes. No trismus noted. No drooling noted. No muffled voice noted. Neck: Normal inspection. Neck supple. FROM. No adenopathy. Thyroid Normal. No meningeal signs. No neck mass noted. CVS: Normal heart rate and rhythm. Heart sound normal. No murmurs noted. Pulses normal throughout. Respiratory: No respiratory distress. Painless inspiration. Breath sounds normal. No wheezes/rales/rhonchi noted. Chest nontender. No accessory muscle usage noted or decreased air movement noted. Abdomen: Soft and nontender. Bowel sounds normal in all 4 quadrants. No distention noted. No organomegaly noted. No visible injury noted. Back: No CVA tenderness. Full range of motion noted. Skin: Skin warm and dry. Normal skin color. Normal skin turgor. No rashes/lesions/lacerations noted. Extremities: No lower extremity edema. Extremities exhibit normal range of motion. Extremities nontender. Neuro: Oriented X 3. Cranial nerve exam: Please refer to NIH score Course Reevaluation(s) Reevaluation #1: 77-year-old male history of hypertension came in with intracranial hypertensive bleed and left hemiparesis, patient was GCS of 15 the case discussed with Dr. Britt a neurologist at [facility] who accepted the transfer, patient will be transferred to [facility] accepting physician is Dr. Reyes , the case also was discussed with Dr. Mejía /DANIEL Holliday who evaluated the patient in the emergency department and patient was declined by our ICU. blood pressure currently is 130s over 70 without any intervention which is optimal for his medical condition. Will arrange for transportation the case discussed with the daughter. Time: 19:25 Medical Decision Making Differential Diagnosis Differential Diagnoses: The differential diagnosis associated with the presentation includes (Ischemic stroke, hemorrhagic stroke, hypertensive emergency, electrolyte abnormality, severe anemia, ACS, pneumonia, pneumothorax.) Admission/Observation Consideration of admission/observation: Escalation of care including admission/observation considered Consult Healthcare Provider Management of the patient was discussed with: Primary Care Md (Dr. Mejía/ (neurologist at [facility])/Dr. Reyes.) Lab Data MDM Lab Attestation statement: I reviewed the patient's lab results. 02/11/23 18:31 02/11/23 18:31 Labs: Lab Results 02/11/23 12 Range/Units 18:31 18:38 WBC 7.0 (4.8-10.8) X10*3/uL RBC 4.48 L (4.60-5.80) X10*6/uL Hgb 12.5 L (14.0-18.0) g/dl Hct 38.8 L (42.0-52.0) % MCV 86.6 (80.0-98.0) fL MCH 27.9 (27.0-33.0) pg MCHC 32.2 (31.0-36.0) g/dl RDW 15.1 (11.0-16.0) % Plt Count 177 (160-400) X10*3/uL MPV 10.4 (9.4-12.4) fL Immature Gran % (Auto) 0.9 H (0.0-0.4) % Neut % (Auto) 63.7 (45-73) % Lymph % (Auto) 25.7 (20-40) % [place] % (Auto) 8.0 (2-11) % Eos % (Auto) 1.4 (0-4) % Baso % (Auto) 0.3 (0-2) % Lymph # (Auto) 1.8 (1.2-4.9) X10*3/uL [place] # (Auto) 0.6 (0.1-1.2) X10*3/uL Eos # (Auto) 0.1 (0.0-0.4) X10*3/uL Baso # (Auto) 0.0 (0.0-0.2) X10*3/uL Abs Immat Gran (auto) 0.06 H (0.00-0.03) X10*3/uL Absolute Neuts (auto) 4.5 (2.0-8.3) x10*3/uL Absolute Nucleated RBC 0.000 (0.0-0.012) X10*3/uL Nucleated RBC % (auto) 0.0 (0.0-0.2) /100WBC PT 11.2 (11.1-13.3) SEC INR 0.9 (0.9-1.1) APTT 28.8 (26.0-36.4) SEC Sodium 141 (135-145) mmol/L Potassium 4.8 (3.3-5.1) mmol/L Chloride 111 H (96-108) mmol/L Carbon Dioxide 22 (22-29) mmol/L Anion Gap 13 (12-20) BUN 36 H (9-16) mg/dL Creatinine 2.59 H (0.5-1.4) mg/dL Estim Creat Clear Calc 25.0 Estimated GFR 24 POC Glucose 286 H (60-115) mg/dL Random Glucose 294 H (60-115) mg/dL Calcium 9.2 D (8.4-10.2) mg/dL Total Creatine Kinase 150 (38-174) U/L Troponin I High Sens 14.7 (<3.5-35.0) ng/L Independent Interpretation I performed an independent interpretation of an: EKG (Normal sinus rhythm at 64 beats per minutes, normal intervals, normal axis deviation, no ST-T changes.), Plain X-Ray (No acute intrathoracic pathology.) and CT Scan (Head: Acute right thalamic bleed.) Radiology Impression Discussion of test interpretation with radiology: I have reviewed the radiologist's reading. Chronic Conditions Patient?s care impacted by: Hypertension NIH Stroke Scale Time: 18:34 Level of Consciousness: Alert Level of Consciousness Questions: Answers both questions correctly Level of Consciousness Commands: Performs both tasks correctly Best Gaze: Partial gaze palsy Visual: No visual loss Facial Palsy: Partial paralysis Motor Arm (Right): No drift Motor Arm (Left): Some effort against gravity Motor Leg (Right): No drift Motor Leg (Left): No effort against gravity Limb Ataxia: Absent Sensory: Normal Best Language: Mild to moderate aphasia Dysarthia: Normal Extinction and Inattention: No abnormality Score: 9 Critical Care Time Critical Care Time Critical Care Time: Yes Total Critical Care Time: 60 Attestation: I spent 60 minutes providing critical care service to the patient, this including time spent at the bedside to evaluate the patient, reassess the patient, monitoring vital signs, review labs, and radiographic studies, counseling the patient/family, discussing the case with consultants, disposition the patient. Discharge Plan Discharge Clinical Impression: Hypertensive emergency, Hemorrhagic stroke Patient Disposition: [facility] Transfer Details: Neuro ICU Prescriptions: No Action (DME) blood-glucose meter [OneTouch Verio Meter] Misc See Rx Instructions .ROUTE .MEDSUPPLY Qty: 1 0RF Rx Instructions: As directed 4x/day (DME) OneTouch Verio test strips Strip See Rx Instructions .ROUTE .MEDSUPPLY Qty: 150 11RF Rx Instructions: 4 x/day (DME) lancets [OneTouch Delica Lancets] 33 gauge misc See Rx Instructions .ROUTE .MEDSUPPLY Qty: 200 10RF Rx Instructions: four times a day pantoprazole 40 mg tablet,delayed release (DR/EC) 40 mg PO QAM 90 Days Qty: 90 1RF insulin lispro [Humalog KwikPen Insulin] 100 unit/mL insulin pen 20 unit subcut .COMPLEX Qty: 45 4RF Rx Instructions: 20 units subcutaneously ; inject 45 units breakfast and lunch and 50 units with dinner; Toujeo SoloStar U-300 Insulin 300 unit/mL (1.5 mL) insulin pen 108 unit subcut BEDTIME Qty: 4.5 3RF Tradjenta 5 mg tablet 5 mg PO QAM Qty: 30 4RF Dry Eye Relief 1-0.2-0.2 % Drops 1 drp OPHTHALMIC (EYE) BID PRN (Reason: Dry Eye(S)) pioglitazone 30 mg tablet 30 mg PO DAILY aspirin 81 mg tablet,delayed release (DR/EC) 81 mg PO BEDTIME atorvastatin 40 mg tablet 40 mg PO BEDTIME amlodipine 10 mg tablet 10 mg PO QPM (DME) pen needle, diabetic [Pentips] 32 gauge x needle See Rx Instructions .ROUTE .MEDSUPPLY Qty: 50 Rx Instructions: As directed 4 TIMES A DAY furosemide 20 mg tablet 20 mg PO QAM loratadine 10 mg tablet 10 mg PO Q OTHER DAY losartan 100 mg tablet 100 mg PO QPM Jardiance 25 mg tablet 25 mg PO QAM carvedilol [Coreg] 6.25 mg tablet 6.25 mg PO BID 90 Days Qty: 180 3RF Rx Instructions: must administer with a meal/food
[2023-02-11 18:20] VITALS: BP 170/65; BP 170/70; PULSE 66; PULSE 76; RESP 18; TEMP 36.7; O2SAT 94; BMI 26.9
--- NOTE | 2023-02-11 18:25 | MHC.EDTECH ---
Called [facility] regarding tx at 1820. Dr. Rios on the line at 1825.
[2023-02-11 18:34] LABS: MANUAL DIFF FLAG NO
[2023-02-11 18:36] LABS: Basophils Percent Auto 0.3 % (0-2); Eosinophils Absolute Auto 0.1 X10*3/uL (0.0-0.4); Eosinophils Percent Auto 1.4 % (0-4); Hematocrit 38.8 % (42.0-52.0); Hemoglobin 12.5 g/dl (14.0-18.0); Imm Gran Abs Auto 0.06 X10*3/uL (0.00-0.03); Imm Gran Pct Auto 0.9 % (0.0-0.4); Lymphocytes Absolute Auto 1.8 X10*3/uL (1.2-4.9); Lymphocytes Percent Auto 25.7 % (20-40); Mean Corpuscular HGB Conc 32.2 g/dl (31.0-36.0); Mean Corpuscular Hemoglobin 27.9 pg (27.0-33.0); Mean Corpuscular Volume 86.6 fL (80.0-98.0); Mean Platelet Volume 10.4 fL (9.4-12.4); Monocytes Absolute Auto 0.6 X10*3/uL (0.1-1.2); Neutrophils Absolute Auto 4.5 x10*3/uL (2.0-8.3); Neutrophils Percent Auto 63.7 % (45-73); Platelet Count 177 X10*3/uL (160-400); Red Blood Count 4.48 X10*6/uL (4.60-5.80); Red Cell Distribution Width 15.1 % (11.0-16.0)
[2023-02-11 18:41] LABS: INTERNATIONAL NORM RATIO 0.9 (0.9-1.1); Prothrombin Time 11.2 SEC (11.1-13.3)
[2023-02-11 18:43] VITALS: BP 155/63; PULSE 69; RESP 18; O2SAT 96
[2023-02-11 18:44] LABS: Partial Thromboplastin Time 28.8 SEC (26.0-36.4)
[2023-02-11 18:45] LABS: Glucose, Whole Blood 286 mg/dL (60-115)
[2023-02-11 18:49] LABS: Anion Gap 13 (12-20); Blood Urea Nitrogen 36 mg/dL (9-16); Calcium 9.2 mg/dL (8.4-10.2); Carbon Dioxide 22 mmol/L (22-29); Chloride 111 mmol/L (96-108); Estimated Glomerular Filt Rate 24; Glucose Random 294 mg/dL (60-115); Potassium 4.8 mmol/L (3.3-5.1); Sodium 141 mmol/L (135-145)
[2023-02-11 18:53] LABS: Stroke Lab Use COMPLETE
[2023-02-11 18:55] LABS: Troponin-I High Sensitivity 14.7 ng/L (<3.5-35.0)
[2023-02-11 19:08] VITALS: BP 133/49; PULSE 64; RESP 18; O2SAT 94
--- NOTE | 2023-02-11 19:24 | MHC.EDTECH ---
Dr. Rios on phone with [facility] [place] [place] at 1924.
--- NOTE | 2023-02-11 19:26 | PC.NURSE ---
this rn assumed care of pt. hospitalist at bedside to discuss pt care with pt and family. vss at this time.
[2023-02-11 19:30] VITALS: BP 143/48; PULSE 71; RESP 16; O2SAT 96
[2023-02-11 19:47] LABS: Glucose, Whole Blood 264 mg/dL (60-115)
--- NOTE | 2023-02-11 19:48 | PC.NURSE ---
provider aware of pt blood pressure at this time.
[2023-02-11 20:00] VITALS: BP 155/59; PULSE 74; RESP 18; O2SAT 98
--- NOTE | 2023-02-11 20:21 | MHC.EDTECH ---
Addendum entered by Ellie Escamilla 02/11/23 20:24: Nurse to Nurse [phone] Original Note: Nikolai called @2016 with a room assignment, Patient is going to (CE) [id number] Nurse to Nurse report [phone]
--- NOTE | 2023-02-11 20:38 | PC.NURSE ---
pt repositioned at this time, pillow placed behind pt head. pt complaining about headache. pt currently has bilateral equal hand grasps, but noted to have left sided facial droop.
--- NOTE | 2023-02-11 20:45 | PC.NURSE ---
attempted to give report on pt to [facility], nurse unable to take report. [facility] RN to call back.
--- NOTE | 2023-02-11 21:21 | PC.NURSE ---
ems at bedside to transport pt to [facility]. report given to [facility] at this time. no questions at this time.
[2023-02-11 21:25] VITALS: BP 122/86; PULSE 78; RESP 15; O2SAT 98
== END 2023-02-11 21:27 | disposition short-term general hospital (02) ==
PROVIDERS: Emergency Provider Emergency Medicine; PCP Internal Medicine
DX: I61.0 Nontraumatic intracerebral hemorrhage in hemisphere, subcortical (principal); I16.1 Hypertensive emergency; G81.94 Hemiplegia, unspecified affecting left nondominant side; I12.9 Hypertensive chronic kidney disease with stage 1 through stage 4 chronic kidney disease, or unspecified chronic kidney disease; E11.22 Type 2 diabetes mellitus with diabetic chronic kidney disease; N18.30 Chronic kidney disease, stage 3 unspecified; Z79.899 Other long term (current) drug therapy; Z91.148 Patient's other noncompliance with medication regimen for other reason
CPT/HCPCS: 36415; 70450; 71045; 80048; 82550; 82947; 84484; 85025; 85610; 85730; 93005; 99285

== ENCOUNTER → 2023-02-11 18:14 | Outpatient (BNV) | payer OTHER, SELFPAY | PROVIDERS: Emergency Provider Emergency Medicine; PCP Internal Medicine; Visit Provider Internal Medicine Cardiovascular Disease | DX: I63.9 Cerebral infarction, unspecified (principal) | CPT/HCPCS: 93010 ==

== ENCOUNTER 2023-04-06 20:01 | Emergency (ER) | payer OTHER, SELFPAY ==
[2023-04-06 20:07] VITALS: BP 134/80; PULSE 98; O2SAT 93
--- NOTE | 2023-04-06 20:10 | PC.NURSE ---
stand grinder called.
[2023-04-06 20:18] VITALS: BP 133/71; PULSE 99; RESP 16; TEMP 36.4; O2SAT 95; BMI 26.0
--- NOTE | 2023-04-06 20:20 | ED.MALEGU ---
HPI - Male Genitourinary General Chief complaint: Urogenital-Male Stated complaint: no urinary output,catheter removed in AM Time Seen by Provider: 04/06/23 20:09 Source: patient Mode of arrival: ambulatory Limitations: no limitations History of Present Illness HPI Narrative: Patient with right thalamic hemorrhagic stroke 02/11/2023, Perkins catheter was placed since stroke which was removed today after removal of the Perkins catheter patient unable to urinate dribbling only few drops having suprapubic discomfort/fullness feeling Related Data Home Medications Medication Instructions Recorded Confirmed peg [id number] 1 1 drp ophthalmic (eye) BID PRN Dry 11/01/21 11/08/22 %-0.2 %-0.2 % eye drops (Dry Eye Eye(S) Relief) pioglitazone 30 mg tablet 30 mg PO DAILY 12/22/21 11/08/22 amlodipine 10 mg tablet 10 mg PO QPM 12/27/21 11/08/22 furosemide 20 mg tablet 20 mg PO QAM 03/29/22 11/08/22 loratadine 10 mg tablet 10 mg PO Q OTHER DAY allergies 03/29/22 11/08/22 pen needle, diabetic 32 gauge x #50 ea 03/29/22 11/08/22 (Pentips) aspirin 81 mg tablet,delayed 81 mg PO BEDTIME 07/11/22 11/08/22 release atorvastatin 40 mg tablet 40 mg PO BEDTIME 07/11/22 11/08/22 empagliflozin 25 mg tablet 25 mg PO QAM 08/04/22 11/08/22 (Jardiance) losartan 100 mg tablet 100 mg PO QPM 08/04/22 11/08/22 Previous Rx's Medication Instructions Recorded blood sugar diagnostic (OneTouch #150 ea 04/28/21 Verio test strips) blood-glucose meter (OneTouch #1 ea 04/28/21 Verio Meter) lancets 33 gauge (OneTouch Delica #200 ea 04/28/21 Lancets) carvedilol 6.25 mg tablet (Coreg) 6.25 mg PO BID 90 days #180 tabs 11/08/22 linagliptin 5 mg tablet (Tradjenta) 5 mg PO QAM #30 tabs 01/25/23 insulin lispro 100 unit/mL See Rx Instructions subcut 02/20/23 subcutaneous pen .COMPLEX #45 mL pantoprazole 40 mg tablet,delayed 40 mg PO QAM #90 tabs 02/20/23 release insulin glargine U-300 conc 300 108 unit (0.36 mL) subcut BEDTIME 03/04/23 unit/mL (1.5 mL) subcutaneous pen #4.5 mL (Toujeo SoloStar U-300 Insulin) cefuroxime axetil 250 mg tablet 250 mg PO BID 7 days #14 tabs 04/06/23 Allergies Allergy/AdvReac Type Severity Reaction Status Date / Time No Known Allergies Allergy Mild N/A Verified 01/08/23 08:02 Review of Systems Review of Systems: Yes all other systems are reviewed and are negative [facility] Past Medical History Medical History NSTEMI (non-ST elevated myocardial infarction) Sepsis Pneumonia Type 2 diabetes mellitus with diabetic polyneuropathy Diverticulosis Erectile dysfunction BPH (benign prostatic hyperplasia) Carpal tunnel syndrome Cataracts, bilateral GERD (gastroesophageal reflux disease) Kidney stones Type 2 diabetes mellitus with chronic kidney disease Chronic kidney disease, stage 3 Type 2 diabetes mellitus with hyperglycemia Essential hypertension Hyperlipidemia LDL goal <70 Surgical History Hx of colonoscopy Hx of lithotripsy Family History Family History Father No problems noted. Mother Diabetes mellitus Brother Diabetes mellitus Sister Diabetes mellitus Social History Social History Household Members: Spouse and Children Alcohol intake: never Patient Tobacco Use Status: Never used Tobacco Smoked in Last 30 Days: No Use of substances other than those prescribed or required for medical reasons: No Advance Directives: No Advance Directives Information Provided: No service: No Current occupational status: retired Physical Exam Vital Signs: Vital Signs: Last Vital Signs Temp 97.5 F 04/06/23 20:18 Pulse 95 04/06/23 23:26 Resp 16 04/06/23 23:26 BP 133/60 04/06/23 23:26 Pulse Ox 96 04/06/23 23:26 O2 Del Method Room Air 04/06/23 23:26 BMI result Body Mass Index 26.0 Appearance: Alert. Oriented X3. No acute distress. CVS: Normal heart rate and rhythm. Pulses normal. Respiratory: No respiratory distress. Equal air entry bilateral, Abdomen: Soft and nontender. Bowel sounds are present, suprapubic fullness and discomfort+ Skin: Skin warm and dry. Normal skin color. Normal skin turgor. Extremities: No lower extremity edema. No calf tenderness Neuro: Oriented X 3. Left-sided residual weakness Medications Administered Discontinued Medications Generic Name Dose Route Start Last Admin Trade Name Andrew PRN Reason Stop Dose Admin Cefuroxime Axetil 500 mg 04/06/23 22:34 04/06/23 23:27 Cefuroxime Axetil 500 Mg Tablet PO 04/06/23 22:35 500 mg ONCE ONE Administration Lidocaine HCl 10 ml 04/06/23 21:46 04/06/23 21:53 Lidocaine Hcl 2 % Urojet 10 Ml Jel.Pf.Lidia TOPICAL 04/06/23 21:47 Not Given ONCE ONE Medical Decision Making Medical Decision Making [facility] Narrative: During stay in the ER patient urinated off his own repeat bladder scan showed urine of 77 cc only UA workup showed UTI discharge patient home on Ceft[place] Lab Data [facility] Lab Attestation statement: I reviewed the patient's lab results. Labs: Lab Results 04/06/23 Range/Units 22:21 Urine Color Dark Yellow Urine Appearance Turbid Urine pH 7.5 (5.0-9.0) Ur Specific [place] 1.020 (1.005-1.025) Urine Protein 300 (3+) H (Neg-Trace) mg/dL Urine Glucose (UA) 500 H (Negative) mg/dL Urine Ketones Negative (Negative) mg/dL Urine Blood Large (3+) H (Negative) Urine Nitrite Negative (Negative) Ur Leukocyte Esterase Large (3+) H (Negative) Urine RBC >20 H (0-2) /HPF Urine WBC >50 H (0-5) /HPF Ur Squamous Epith Cells 0-2 (0-2) /HPF Urine Bacteria 4+ (None Seen) Hyaline Casts 0-2 (0-2) /LPF Discharge Plan Discharge Clinical Impression: Urinary tract infection, Acute retention of urine Patient Disposition: Home, Self-Care Instructions: Urinary Retention in Men (ED), Urinary Tract Infection in Men (ED) Additional Instructions: Drink plenty of fluids Take antibiotic as prescribed Report to the ER if recurrence of retention of the urine Prescriptions: New cefuroxime axetil 250 mg tablet 250 mg PO BID 7 Days Qty: 14 0RF No Action (DME) blood-glucose meter [OneTouch Verio Meter] [facility] [place] See Rx Instructions .ROUTE .MEDSUPPLY Qty: 1 0RF Rx Instructions: As directed 4x/day (DME) OneTouch Verio test strips Strip See Rx Instructions .ROUTE .MEDSUPPLY Qty: 150 11RF Rx Instructions: 4 x/day (DME) lancets [OneTouch Delica Lancets] 33 gauge misc See Rx Instructions .ROUTE .MEDSUPPLY Qty: 200 10RF Rx Instructions: four times a day Tradjenta 5 mg tablet 5 mg PO QAM Qty: 30 4RF pantoprazole 40 mg tablet,delayed release (DR/EC) 40 mg PO QAM Qty: 90 1RF insulin lispro 100 unit/mL insulin pen See Rx Instructions subcut .COMPLEX Qty: 45 4RF Rx Instructions: 40 units with breakfast and lunch and 50 units with dinner subcutaneously; Isidra Valentinar U-300 Insulin 300 unit/mL (1.5 mL) insulin pen 108 unit subcut BEDTIME Qty: 4.5 3RF Dry Eye Relief 1-0.2-0.2 % Drops 1 drp OPHTHALMIC (EYE) BID PRN (Reason: Dry Eye(S)) pioglitazone 30 mg tablet 30 mg PO DAILY aspirin 81 mg tablet,delayed release (DR/EC) 81 mg PO BEDTIME atorvastatin 40 mg tablet 40 mg PO BEDTIME amlodipine 10 mg tablet 10 mg PO QPM (DME) pen needle, diabetic [Pentips] 32 gauge x /32 needle See Rx Instructions .ROUTE .MEDSUPPLY Qty: 50 Rx Instructions: As directed 4 TIMES A DAY furosemide 20 mg tablet 20 mg PO QAM loratadine 10 mg tablet 10 mg PO Q OTHER DAY losartan 100 mg tablet 100 mg PO QPM Jardiance 25 mg tablet 25 mg PO QAM carvedilol [Coreg] 6.25 mg tablet 6.25 mg PO BID 90 Days Qty: 180 3RF Rx Instructions: must administer with a meal/food
--- NOTE | 2023-04-06 21:53 | PC.NURSE ---
pt able to urinate prior to inserting goodman catheter. Dr. Aguilera aware.
--- NOTE | 2023-04-06 22:26 | PC.NURSE ---
last bladder scan showed 76 ML of urine. ua sent to lab.
[2023-04-06 22:29] LABS: Appearance Urine Turbid; Glucose Urine UA 500 mg/dL (Negative); Leukocyte Esterase Urine Large (3+) (Negative); Nitrite Urine Negative (Negative); PH 7.5 (5.0-9.0); UMIC TRIGGER UACC YES; Urine Blood Large (3+) (Negative); Urine Ketones Negative (Negative); Urine Protein 300 (3+) mg/dL (Neg-Trace)
[2023-04-06 22:30] LABS: Bacteria Urine 4+ (None Seen); Color Urine Dark Yellow; Hyaline Casts Urine 0-2 /LPF (0-2); RBC Urine >20 /HPF (0-2); Squamous Epithelial Cell Urine 0-2 /HPF (0-2); UACC Culture Trigger YES; WBC Urine >50 /HPF (0-5)
[2023-04-06 23:26] VITALS: BP 133/60; PULSE 95; RESP 16; O2SAT 96
[2023-04-06] MEDS: cefuroxime axetiL 500 MG TABLET PO (23:27)
--- NOTE | 2023-04-06 23:32 | PC.NURSE ---
side trimmer at bedside; educatedpt on d/c and abx use. pt has g-tube however states he takes his meds po. pt tolerated well with water. awaiting ems transfer home.
== END 2023-04-07 00:56 | disposition home or self-care (01) ==
PROVIDERS: Emergency Provider Internal Medicine; PCP Family Medicine
DX: N39.0 Urinary tract infection, site not specified (principal); R33.9 Retention of urine, unspecified; Z79.899 Other long term (current) drug therapy
CPT/HCPCS: 51701; 81001; 87086; 87088; 87186; 99283; 99284

== ENCOUNTER 2023-04-10 15:30 | Emergency (ER) | payer OTHER, SELFPAY ==
[2023-04-10 16:16] VITALS: BP 100/58; BP 119/62; PULSE 76; RESP 18; TEMP 36.8; O2SAT 94; O2SAT 99; BMI 27.4
[2023-04-10 16:29] VITALS: BP 119/62; PULSE 76; RESP 18; TEMP 36.8; O2SAT 94
--- NOTE | 2023-04-10 16:31 | PC.NURSE ---
pt presents to ED via EMS from PCP. pt is Faroese speaking only, customer engineering specialist utilized. pt is alert and oriented, breathing even and unlabored, skin WNL. pt reports recent stroke 02/11 which he went to rehab after hospitalization. pt is now home with family who cannot care for him, pt feels he cannot be at home due to poor mobility. pt reports 2 falls this week, denies injury from them. pt went to his PCP today who sent him to ER for rehab placement. pt denies pain at this time. pt has baseline left sided deficits and g-tube.
--- NOTE | 2023-04-10 16:48 | ED_ITS ---
HPI - Weakness General Chief complaint: Weakness Stated complaint: follow up appt post-rehab. 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 Reports he was discharged to from [facility] rehab, ? [facility], he reports that he did not feel well enough to return home at that time but ?I was being discharged so I had to?. 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 He had an outpatient follow-up with his primary care provider today after the recent discharge from rehab who felt that he was not appropriate to be at home at this time that he is too weak, when asked patient states that he does not feel comfortable being home nor safe due to his degree of weakness. Related Data Home Medications Medication Instructions Recorded Confirmed peg [id number] 1 1 drp ophthalmic (eye) BID PRN Dry 11/01/21 04/10/23 %-0.2 %-0.2 % eye drops (Dry Eye Eye(S) Relief) pioglitazone 30 mg tablet 30 mg PO DAILY 12/22/21 04/10/23 furosemide 20 mg tablet 20 mg PO QAM 03/29/22 04/10/23 loratadine 10 mg tablet 10 mg PO Q OTHER DAY PRN allergies 03/29/22 04/10/23 pen needle, diabetic 32 gauge x #50 ea 03/29/22 11/08/22 (Pentips) aspirin 81 mg tablet,delayed 81 mg PO BEDTIME 07/11/22 04/10/23 release atorvastatin 40 mg tablet 40 mg PO BEDTIME 07/11/22 04/10/23 losartan 100 mg tablet 100 mg PO QPM 08/04/22 04/10/23 amlodipine 5 mg tablet 5 mg PO BEDTIME 04/10/23 04/10/23 gabapentin 300 mg capsule 300 mg PO BEDTIME 04/10/23 04/10/23 linagliptin 5 mg tablet (Tradjenta) 5 mg PO QAM 04/10/23 04/10/23 nystatin 100,000 unit/gram topical 1 appl topical BID 04/10/23 04/10/23 powder tramadol 50 mg tablet 25 mg PO DAILY PRN severe pain 04/10/23 04/10/23 Previous Rx's Medication Instructions Recorded blood sugar diagnostic (OneTouch #150 ea 04/28/21 Verio test strips) blood-glucose meter (OneTouch #1 ea 04/28/21 Verio Meter) lancets 33 gauge (OneTouch Delica #200 ea 04/28/21 Lancets) carvedilol 6.25 mg tablet (Coreg) 6.25 mg PO BID 90 days #180 tabs 11/08/22 insulin lispro 100 unit/mL See Rx Instructions subcut 02/20/23 subcutaneous pen .COMPLEX #45 mL pantoprazole 40 mg tablet,delayed 40 mg PO QAM #90 tabs 02/20/23 release insulin glargine U-300 conc 300 108 unit (0.36 mL) subcut BEDTIME 03/04/23 unit/mL (1.5 mL) subcutaneous pen #4.5 mL (Toujeo SoloStar U-300 Insulin) cefuroxime axetil 250 mg tablet 250 mg PO BID 7 days #14 tabs 04/06/23 Allergies Allergy/AdvReac Type Severity Reaction Status Date / Time No Known Allergies Allergy Mild N/A Verified 01/08/23 08:02 [facility] Past Medical History Medical History NSTEMI (non-ST elevated myocardial infarction) Sepsis Pneumonia Type 2 diabetes mellitus with diabetic polyneuropathy Diverticulosis Erectile dysfunction BPH (benign prostatic hyperplasia) Carpal tunnel syndrome Cataracts, bilateral GERD (gastroesophageal reflux disease) Kidney stones Type 2 diabetes mellitus with chronic kidney disease Chronic kidney disease, stage 3 Type 2 diabetes mellitus with hyperglycemia Essential hypertension Hyperlipidemia LDL goal <70 Surgical History Hx of colonoscopy Hx of lithotripsy Family History Family History Father No problems noted. Mother Diabetes mellitus Brother Diabetes mellitus Sister Diabetes mellitus Social History Social History Household Members: Spouse and Children Alcohol intake: never Patient Tobacco Use Status: Never used Tobacco Smoked in Last 30 Days: No Use of substances other than those prescribed or required for medical reasons: No Advance Directives: Yes Advance Directives on File: Yes Advance Directives Date on File: 04/11/23 service: No Current occupational status: retired Physical Exam 2 Vital Signs: Vital Signs: Last Vital Signs Temp 98.6 F 04/11/23 11:06 Pulse 84 04/11/23 11:06 Resp 14 04/11/23 11:06 BP 139/60 04/11/23 11:06 Pulse Ox 95 04/11/23 11:06 O2 Del Method Room Air 04/11/23 11:06 BMI result Body Mass Index 27.4 Course Course Course Narrative: 04/11/23 1235-- Vital signs have remained stable. No acute overnight events. PT recommended STR. CM to find placement. Physician observation continued pending disposition. Will continue to monitor. Medical Decision Making Medical Decision Making [facility] Narrative: Patient is a 77-year-old male presenting to emergency department from PCP office was requesting assistance with placement short-term rehab, when asked patient does not feel strong enough to be home with his taking care of him as per HPI, residual left-sided hemiparesis in the setting of recent right thalamic hemorrhagic stroke, and urinary tract infection diagnosed 04/06/2023 with E coli susceptible to cephalosporin. He denies any new physical complaints or concerns aside from the ongoing weakness and deconditioning, physical examination is benign for any acute pathology. Plan to obtain basic labs for medical clearance and will refer patient to have physical therapy evaluation in case management involvement to determine safe disposition. Differential Diagnosis Differential Diagnoses: The differential diagnosis associated with the presentation includes (Urinary tract infection, deconditioning, generalized weakness, hemiparesis due to CVA) Admission/Observation Consideration of admission/observation: Escalation of care including admission/observation considered (Will require physician observation so that physical therapy evaluation and case management evaluation can ensue for safe disposition) Lab Data [facility] Lab Attestation statement: I reviewed the patient's lab results. CBC is without leukocytosis, baseline normocytic anemia that does not meet transfusion criteria. Renal function actually improved when compared to baseline, do not suspect AMERICO. Urinalysis without evidence of infection. COVID- 19 positive. 04/10/23 17:26 04/10/23 17:26 Labs: Lab Results 04/10/23 04/10/23 04/10/23 Range/Units 17:23 17:26 18:58 WBC 7.4 (4.8-10.8) X10*3/uL RBC 3.98 L (4.60-5.80) X10*6/uL Hgb 10.9 L (14.0-18.0) g/dl Hct 34.7 L (42.0-52.0) % MCV 87.2 (80.0-98.0) fL MCH 27.4 (27.0-33.0) pg MCHC 31.4 (31.0-36.0) g/dl RDW 15.9 (11.0-16.0) % Plt Count 270 D (160-400) X10*3/uL MPV 10.0 (9.4-12.4) fL Immature Gran % (Auto) 0.7 H (0.0-0.4) % Neut % (Auto) 53.9 (45-73) % Lymph % (Auto) 26.3 (20-40) % Edwards % (Auto) 13.6 H (2-11) % Eos % (Auto) 5.0 H (0-4) % Baso % (Auto) 0.5 (0-2) % Lymph # (Auto) 1.9 (1.2-4.9) X10*3/uL Edwards # (Auto) 1.0 (0.1-1.2) X10*3/uL Eos # (Auto) 0.4 (0.0-0.4) X10*3/uL Baso # (Auto) 0.0 (0.0-0.2) X10*3/uL Abs Immat Gran (auto) 0.05 H (0.00-0.03) X10*3/uL Absolute Neuts (auto) 4.0 (2.0-8.3) x10*3/uL Absolute Nucleated RBC 0.030 H (0.0-0.012) X10*3/uL Nucleated RBC % (auto) 0.4 H (0.0-0.2) /100WBC Sodium 141 (135-145) mmol/L Potassium 4.0 (3.3-5.1) mmol/L Chloride 97 (96-108) mmol/L Carbon Dioxide 33 H (22-29) mmol/L Anion Gap 15 (12-20) BUN 35 H (9-16) mg/dL Creatinine 1.47 H (0.5-1.4) mg/dL Estim Creat Clear Calc 39.0 Estimated GFR 47 Random Glucose 88 (60-115) mg/dL Calcium 9.2 (8.4-10.2) mg/dL Total Bilirubin 0.6 (0.0-1.0) mg/dL AST 20 (5-37) U/L ALT 12 (0-40) U/L Alkaline Phosphatase 74 (39-117) U/L Total Protein 6.8 (6.5-8.0) g/dL Albumin 3.1 L (3.5-5.0) g/dL Urine Color Yellow Urine Appearance Clear Urine pH 8.0 (5.0-9.0) Ur Specific [place] 1.020 (1.005-1.025) Urine Protein 100 (2+) H (Neg-Trace) mg/dL Urine Glucose (UA) 500 H (Negative) mg/dL Urine Ketones Negative (Negative) mg/dL Urine Blood Negative (Negative) Urine Nitrite Negative (Negative) Ur Leukocyte Esterase Trace H (Negative) Urine RBC 0-2 (0-2) /HPF Urine WBC 11-20 H (0-5) /HPF Ur Squamous Epith Cells 0-2 (0-2) /HPF Urine Bacteria None Seen (None Seen) Hyaline Casts 0-2 (0-2) /LPF COVID-19 (JAY) Positive A (Negative) COVID-19 Clin Com See Note Influenza Type A (FRANCESCA) Negative (Negative) Influenza Type B (FRANCESCA) Negative (Negative) Influenza A & B Note See Note Independent Historian Clinical information obtained from an independent historian. History obtained from or confirmed by: EMS External Record Review External record reviewed: Outpatient record Discharge Plan Discharge Clinical Impression: COVID-19, Weakness Patient Disposition: Still a Patient Prescriptions: No Action (DME) blood-glucose meter [OneTouch Verio Meter] Misc See Rx Instructions .ROUTE .MEDSUPPLY Qty: 1 0RF Rx Instructions: As directed 4x/day (DME) OneTouch Verio test strips Strip See Rx Instructions .ROUTE .MEDSUPPLY Qty: 150 11RF Rx Instructions: 4 x/day (DME) lancets [OneTouch Delica Lancets] 33 gauge misc See Rx Instructions .ROUTE .MEDSUPPLY Qty: 200 10RF Rx Instructions: four times a day pantoprazole 40 mg tablet,delayed release (DR/EC) 40 mg PO QAM Qty: 90 1RF insulin lispro 100 unit/mL insulin pen See Rx Instructions subcut .COMPLEX Qty: 45 4RF Rx Instructions: 40 units with breakfast and lunch and 50 units with dinner subcutaneously; Isidra SoloStar U-300 Insulin 300 unit/mL (1.5 mL) insulin pen 108 unit subcut BEDTIME Qty: 4.5 3RF Dry Eye Relief 1-0.2-0.2 % Drops 1 drp OPHTHALMIC (EYE) BID PRN (Reason: Dry Eye(S)) pioglitazone 30 mg tablet 30 mg PO DAILY cefuroxime axetil 250 mg tablet 250 mg PO BID 7 Days Qty: 14 0RF Rx Instructions: x 7 days, finish 04/14/23 amlodipine 5 mg tablet 5 mg PO BEDTIME tramadol 50 mg tablet 25 mg PO DAILY PRN (Reason: severe pain) gabapentin 300 mg capsule 300 mg PO BEDTIME nystatin 100,000 unit/gram powder 1 appl topical BID Tradjenta 5 mg tablet 5 mg PO QAM aspirin 81 mg tablet,delayed release (DR/EC) 81 mg PO BEDTIME atorvastatin 40 mg tablet 40 mg PO BEDTIME (DME) pen needle, diabetic [Pentips] 32 gauge x needle See Rx Instructions .ROUTE .MEDSUPPLY Qty: 50 Rx Instructions: As directed 4 TIMES A DAY furosemide 20 mg tablet 20 mg PO QAM loratadine 10 mg tablet 10 mg PO Q OTHER DAY PRN (Reason: allergies) losartan 100 mg tablet 100 mg PO QPM carvedilol [Coreg] 6.25 mg tablet 6.25 mg PO BID 90 Days Qty: 180 3RF Rx Instructions: must administer with a meal/food
[2023-04-10 17:31] LABS: MANUAL DIFF FLAG NO
[2023-04-10 17:47] LABS: COVID-19 Test Positive (Negative); IDNOW Serial# 9DB6401D
[2023-04-10 17:48] LABS: Basophils Percent Auto 0.5 % (0-2); Eosinophils Absolute Auto 0.4 X10*3/uL (0.0-0.4); Hematocrit 34.7 % (42.0-52.0); Hemoglobin 10.9 g/dl (14.0-18.0); Imm Gran Abs Auto 0.05 X10*3/uL (0.00-0.03); Imm Gran Pct Auto 0.7 % (0.0-0.4); Lymphocytes Absolute Auto 1.9 X10*3/uL (1.2-4.9); Lymphocytes Percent Auto 26.3 % (20-40); Mean Corpuscular HGB Conc 31.4 g/dl (31.0-36.0); Mean Corpuscular Hemoglobin 27.4 pg (27.0-33.0); Mean Corpuscular Volume 87.2 fL (80.0-98.0); Monocytes Percent Auto 13.6 % (2-11); NRBC Pct Auto 0.4 /100WBC (0.0-0.2); Neutrophils Percent Auto 53.9 % (45-73); Platelet Count 270 X10*3/uL (160-400); Red Blood Count 3.98 X10*6/uL (4.60-5.80); Red Cell Distribution Width 15.9 % (11.0-16.0); White Blood Count 7.4 X10*3/uL (4.8-10.8)
[2023-04-10 17:54] LABS: IDNOW Serial# 58CA691E; Influenza A Negative (Negative); Influenza B2 Negative (Negative)
[2023-04-10 17:55] LABS: Alanine Aminotransferase 12 U/L (0-40); Albumin Level 3.1 g/dL (3.5-5.0); Alkaline Phosphatase 74 U/L (39-117); Anion Gap 15 (12-20); Aspartate Amino Transferase 20 U/L (5-37); Bilirubin Total 0.6 mg/dL (0.0-1.0); Blood Urea Nitrogen 35 mg/dL (9-16); Calcium 9.2 mg/dL (8.4-10.2); Carbon Dioxide 33 mmol/L (22-29); Chloride 97 mmol/L (96-108); Estimated Glomerular Filt Rate 47; Glucose Random 88 mg/dL (60-115); Sodium 141 mmol/L (135-145); Total Protein 6.8 g/dL (6.5-8.0)
--- NOTE | 2023-04-10 18:02 | MHC.CM.ED ---
Addendum entered by Berta Yepez 04/10/23 19:18: 15 referrals have been placed that contract with [facility]. Original Note: CM received consult on this patient. Pt is English speaking. Will meet with patient when spooler rubber strand is available. Pt lives with his . On 02/11 patient presented to our ED with a Hemorrhagic Intracranial bleed and was transferred to [facility]. Pt was eventually discharge from [facility] to [facility] [place]. Pt was discharged 2 weeks ago from acute rehab. Pt was seen at [facility] ED on 04/06 and discharged with UTI. Patients has been caring for him at home. Pt states he is very weak and does not feel safe at home. Pt has residual Left sided weakness. Pt has a g-tube. Pt has tested positive for Covid. Will await records from [facility]. PT is pending. Will placed referrals locally that contract with [facility]. Pt will be moved to another room secondary to Covid positive status. CM will follow for discharge planning.
[2023-04-10 19:04] LABS: Appearance Urine Clear; Color Urine Yellow; Glucose Urine UA 500 mg/dL (Negative); Leukocyte Esterase Urine Trace (Negative); Nitrite Urine Negative (Negative); UMIC TRIGGER UACC YES; Urine Blood Negative (Negative); Urine Ketones Negative (Negative); Urine Protein 100 (2+) mg/dL (Neg-Trace)
[2023-04-10 19:12] LABS: Bacteria Urine None Seen (None Seen); Hyaline Casts Urine 0-2 /LPF (0-2); RBC Urine 0-2 /HPF (0-2); Squamous Epithelial Cell Urine 0-2 /HPF (0-2); UACC Culture Trigger YES
[2023-04-10 19:23] VITALS: BP 115/53; PULSE 75; RESP 14; TEMP 36.8; O2SAT 92
--- NOTE | 2023-04-10 20:55 | PHA.MEDREC ---
Pharmacy Consult ? Medication Reconciliation Pharmacy has completed the medication reconciliation. Patient unable to tell us what medication he takes at home. chemistry quality control technician attempted to call and daughter, but no answer. Patient get med boxes from [facility] therefore used claim history to confirm medicaitons. Left insulin lispro unconfirmed due to high doses, would want to confirm with family prior to confirm on list. Can give patient SSI until does is confirm. For linagliptin, last filled in January for 30 day supply however per prescriber note patient is still on medicaitons. If family call to confirm medications will update list and inform provider of any changes. Elisabeth Moncada, PharmD
[2023-04-10 22:44] VITALS: BP 117/60; PULSE 95; RESP 16; O2SAT 95
[2023-04-10 23:41] VITALS: BP 116/66; PULSE 73; RESP 16; TEMP 36.8; O2SAT 93
[2023-04-11 04:43] VITALS: BP 111/82; PULSE 80; RESP 14; TEMP 36.6; O2SAT 92
[2023-04-11 11:06] VITALS: BP 139/60; PULSE 84; RESP 14; TEMP 37; O2SAT 95
--- NOTE | 2023-04-11 11:06 | MHC.CM.ED ---
Patient remains in ER. Physical therapy eval completed. Short term rehab is recommended. No bed offers at this time. Copy of HCP and Discharge summary obtained from [facility]. Continue to monitor for d/c needs.
--- NOTE | 2023-04-11 11:34 | PC.NURSE ---
Pt cleaned, complete bed change done, pt boosted up. vs updated, he denies pain.
[2023-04-11 13:36] VITALS: BP 121/72; PULSE 86
[2023-04-11] MEDS: carvediloL 6.25 MG TABLET PO ×2 (13:36→20:17)
--- NOTE | 2023-04-11 13:43 | PC.NURSE ---
pt medicated per KHADAR pt B/P 121/72 on administration
[2023-04-11 14:43] VITALS: BP 136/80; PULSE 93; RESP 16; O2SAT 94
--- NOTE | 2023-04-11 17:38 | PC.NURSE ---
pt arrived to unit at 1715, assisted program manager transportation to slide pt into bed, pt repositioned and freshened up. Pt offering no complaints, speech is clear, respirations even and unlabored. Airborne precautions in place. Oriented to room, safety precautions in place, call blum within reach.
[2023-04-11 20:00] VITALS: BP 131/78; PULSE 84; RESP 16; TEMP 36.7; O2SAT 94
[2023-04-11] MEDS: Gabapentin 300 MG CAPSULE PO (20:17)
[2023-04-11] MEDS: Aspirin Enteric Coated 81 MG TABLET.DR PO (20:17)
[2023-04-11] MEDS: Atorvastatin Calcium 40 MG TABLET PO (20:17)
[2023-04-11] MEDS: Losartan Potassium 50 MG TABLET 100 MG PO (20:17)
[2023-04-11] MEDS: Insulin Glargine,Hum.rec.anlog 100 UNIT/ML 10 ML VIAL 86 UNIT SUBCUT (20:18)
[2023-04-11 21:43] LABS: Glucose, Whole Blood 214 mg/dL (60-115)
[2023-04-12 06:00] VITALS: BP 133/65; PULSE 77; RESP 15; TEMP 36.7; O2SAT 93
[2023-04-12] MEDS: Omeprazole 20 MG CAPSULE.DR PO (06:23)
[2023-04-12] MEDS: Furosemide 20 MG TABLET PO ×2 (09:26→21:11)
[2023-04-12] MEDS: LINAGLIPTIN 5 MG 5 EACH PO (09:26)
[2023-04-12] MEDS: carvediloL 6.25 MG TABLET PO ×2 (09:26→21:12)
--- NOTE | 2023-04-12 10:57 | PC.NURSE ---
this RN resumed care of pt at this time. pt incontinent of urine and stool. perineal care provided. new pads placed. pt repositioned to comfort. pt's g-tube flushed w/ sterile water. patent/intact. no complications noted to skin barrier around g-tube. skin normal to patient, dry, intact. medication administered per provider order via g-tube. no sob/wob noted. respirations even and unlabored. pt repositioned to comfort. call blum placed within reach.
[2023-04-12 11:21] LABS: Glucose, Whole Blood 239 mg/dL (60-115)
--- NOTE | 2023-04-12 12:30 | PC.NURSE ---
pt's came to visit pt in overflow. pt's increasingly agitated/yelling at this RN as well as tech in overflow stating that the patient is not covid positive and that we are lying because we want to take all of their money. pt's then stated that she wanted to take her home as we are not providing him with proper services in regards to rehab. GUSTAVO Alvarez notified/aware of pt's 's statements. plan of care ongoing.
--- NOTE | 2023-04-12 12:40 | PC.NURSE ---
GUSTAVO Alvarez and sales representative uniforms Victorino bedside speaking w/ pt and pt's at this time.
--- NOTE | 2023-04-12 14:06 | MHC.CM.ED ---
Received notification from [facility] that patient's , Diana is requesting to take patient home. Met with patient, Dinaa and facility supervisor. Diana doesn't feel patient really has Covid and that [facility] isn't providing any rehab for patient. Copy of positive Covid results provided to . T/W explained rehab physical therapy can't be provided in the ER. Also explained patient has been difficult to place due to Covid. [facility] is the only facility at this time that is still reviewing. Patient and Diana aware patient can be retested for Covid on 04/15. If negative at that time, placement options will increase. If positive, placement will be difficult to find until day April 20. Both patient and verbalize understanding and would like to stay in ER. Patient has a gtube. Receives glucerna 1.2 at 115ml/hr from 8p-8am. Rosario SANCHEZ aware and will order. Continue to monitor for d/c needs.
[2023-04-12 14:22] VITALS: BP 104/57; PULSE 79; RESP 19; TEMP 36.8; O2SAT 93
[2023-04-12 16:40] LABS: Glucose, Whole Blood 275 mg/dL (60-115)
--- NOTE | 2023-04-12 16:52 | PC.NURSE ---
BS 275,insulin coverage not scheduled till 2138,previous nurse reported tube feeding will be ordered for patient Glucerna 115ml/hr from 8 pm till 8am,order is not in,DANIEL Jaimes notified
--- NOTE | 2023-04-12 17:15 | PC.NURSE ---
Addendum entered by Shruti Fontaine RN 04/12/23 17:31: ED Charge nurse is looking into obtaining Glucerna for patient Original Note: Called kitchen,Glucerna is not available ,DANIEL Jaimes notified
--- NOTE | 2023-04-12 19:12 | PC.NURSE ---
Patient just came out and said she started tube feeding using her own supply,own tubing ,own pump,and she has beed doing this since patient admission,DANIEL Ozuna notified of this situation
--- NOTE | 2023-04-12 19:58 | PC.NURSE ---
no difficulty breathing- talking well.
[2023-04-12 20:18] LABS: Glucose, Whole Blood 272 mg/dL (60-115)
[2023-04-12 20:57] VITALS: BP 139/64; PULSE 81; RESP 18; TEMP 37; O2SAT 95
[2023-04-12] MEDS: Gabapentin 300 MG CAPSULE PO (21:11)
[2023-04-12] MEDS: Aspirin Enteric Coated 81 MG TABLET.DR PO (21:11)
[2023-04-12] MEDS: cefuroxime axetiL 250 MG TABLET PO (21:11)
[2023-04-12] MEDS: amLODIPine Besylate 5 MG TABLET 10 MG PO (21:12)
[2023-04-12] MEDS: Atorvastatin Calcium 40 MG TABLET PO (21:12)
[2023-04-12] MEDS: Insulin Glargine,Hum.rec.anlog 100 UNIT/ML 10 ML VIAL 86 UNIT SUBCUT (21:12)
[2023-04-12] MEDS: Losartan Potassium 50 MG TABLET 100 MG PO (21:12)
[2023-04-12] MEDS: Insulin Lispro 100 UNIT/ML 3 ML VIAL SUBCUT (21:13)
[2023-04-12] MEDS: Melatonin 3 MG TABLET 6 MG PO (21:50)
--- NOTE | 2023-04-12 22:10 | PC.NURSE ---
Patient resting,head of bed elevated,tube feeding infusing at 115/ml hr,medicated with Melatonin per pt request
[2023-04-13 00:30] LABS: Glucose, Whole Blood 220 mg/dL (60-115)
[2023-04-13 04:59] VITALS: BP 124/59; PULSE 77; RESP 17; TEMP 36.2; O2SAT 94
[2023-04-13] MEDS: Omeprazole 20 MG CAPSULE.DR PO (05:51)
[2023-04-13 08:13] LABS: Glucose, Whole Blood 196 mg/dL (60-115)
[2023-04-13 08:44] VITALS: BP 125/70; PULSE 80; RESP 17; TEMP 36.1; O2SAT 95
[2023-04-13] MEDS: cefuroxime axetiL 250 MG TABLET PO (08:52)
[2023-04-13] MEDS: Insulin Lispro 100 UNIT/ML 3 ML VIAL SUBCUT ×2 (08:52→11:48)
[2023-04-13] MEDS: Furosemide 20 MG TABLET PO (08:52)
[2023-04-13] MEDS: carvediloL 6.25 MG TABLET PO (08:52)
--- NOTE | 2023-04-13 10:44 | MHC.CM.ED ---
Addendum entered by Kim Carroll 04/13/23 12:01: [facility] booked for 130pm. Patient, Diana, Kelly RN and Hazel SANCHEZ aware. Kelly will provide tube feeding for the weekend as requested by Mal Mazariegos. Original Note: Patient remains in ER overflow. Mal Mazariegos is able to offer a bed. Spoke with patient's , Diana, via telephone at [phone] with the help of the jukebox route driver. Diana accepts bed. Mla Mazariegos has been asked to obtain ins auth. Continue to monitor for d/c needs.
[2023-04-13 11:26] LABS: Glucose, Whole Blood 213 mg/dL (60-115)
--- NOTE | 2023-04-13 12:19 | PC.NURSE ---
pt resting in bed, had soft BM this AM by bedpan, pt cleaned and repositioned in bed. pt ate some of his breakfast tray, reprots he can eat some foods by mouth pt otherwise takes tuber feeding overnights 8p-8a at 115ml/hr. stopped pts overnight feeding this am and flushed g-tube. site appears well maintained, skin PWD, no drainage. pt tolerating PO well. AM medications administered per APR. pt with no complaints, plan for possible d/t today.
--- NOTE | 2023-04-13 13:31 | PC.NURSE ---
nurse to nurse called to [facility]
== END 2023-04-13 14:24 | disposition other institution (70) ==
PROVIDERS: Nurse Practitioner Family; Emergency Provider Emergency Medicine Emergency Medical Services; PCP Family Medicine
DX: U07.1 COVID-19 (principal); R53.1 Weakness; R26.2 Difficulty in walking, not elsewhere classified; Z79.899 Other long term (current) drug therapy
CPT/HCPCS: 80053; 81001; 82947; 85025; 87086; 87502; 87635; 97162; 99285

== ENCOUNTER 2023-05-16 09:55 | Outpatient (REF) | payer OTHER, SELFPAY ==
[2023-05-16 11:57] LABS: Estimated Average Glucose 134 mg/dL; Hemoglobin A1c % 6.3 % (<6.0)
[2023-05-16 12:07] LABS: Alanine Aminotransferase 9 U/L (0-40); Albumin Level 3.9 g/dL (3.5-5.0); Alkaline Phosphatase 88 U/L (39-117); Anion Gap 13 (12-20); Aspartate Amino Transferase 14 U/L (5-37); Bilirubin Direct 0.2 mg/dL (0.0-0.5); Bilirubin Total 0.6 mg/dL (0.0-1.0); Blood Urea Nitrogen 27 mg/dL (9-16); Calcium 9.9 mg/dL (8.4-10.2); Carbon Dioxide 25 mmol/L (22-29); Chloride 107 mmol/L (96-108); Cholesterol 171 mg/dL (<200); Estimated Glomerular Filt Rate 36; Glucose Random 166 mg/dL (60-115); HDL Cholesterol 35 mg/dL (>40); LDL Cholesterol Calculated 78 mg/dL (<100); Potassium 4.5 mmol/L (3.3-5.1); Sodium 140 mmol/L (135-145); Total Protein 8.1 g/dL (6.5-8.0); Triglycerides 292 mg/dL (<150)
[2023-05-16 12:19] LABS: Creatinine Urine 52.65 mg/dL; Microalbum/Creatinine Ratio Ur 938.2 ug/mg cr (<30)
== END 2023-05-16 09:56 | disposition home or self-care (01) ==
LOC: HO.HHCL 09:55
PROVIDERS: Visit Provider Family Medicine
DX: E11.22 Type 2 diabetes mellitus with diabetic chronic kidney disease (principal); N18.32 Chronic kidney disease, stage 3b
CPT/HCPCS: 36415; 80048; 80061; 80076; 82043; 82570; 83036

== ENCOUNTER 2023-06-12 13:10 | Inpatient (IN) | payer OTHER, SELFPAY ==
--- NOTE | ~2023-06-12 | XR_ITS ---
EXAMINATION: XR FOOT, LEFT CLINICAL INFORMATION: Fall today. Pain in the foot COMPARISON: None available. TECHNIQUE: AP, lateral, and oblique views of the left foot. FINDINGS: There is diffuse osteopenia. Vascular calcifications are noted. There are prominent spurs off the posterior and inferior calcaneus. There is advanced degenerative change at the first MTP. No acute fracture. XR/XR foot LT min 3V IMPRESSION: Chronic changes observed.
--- NOTE | ~2023-06-12 | CT_ITS ---
EXAMINATION: CT ABDOMEN AND PELVIS WITHOUT CONTRAST CLINICAL INFORMATION: Fever. UTI. COMPARISON: CT abdomen and pelvis October 05, 2021 TECHNIQUE: Multidetector volumetric imaging was performed from the superior aspect of the liver through the pubic symphysis. Sagittal and coronal reformatted images were obtained on the technologist's workstation. This CT examination was performed using dose optimization techniques as appropriate, variously including the following: *Automated exposure control *Adjustment of mA and/or kV according to patient size (this includes techniques or standardized protocols for targeted exams where dose is matched to indication/reason for exam; i.e. extremities or head) *Use of iterative reconstruction technique DLP: 522 mGy-cm FINDINGS: LUNG BASES: The visualized lung bases are unremarkable. LIVER, GALLBLADDER, AND BILIARY TREE: The liver is normal in size, shape, and attenuation. No focal hepatic lesion or biliary ductal dilatation is present. Numerous small calcified gallstones within the gallbladder. No edema around the gallbladder. PANCREAS: Unremarkable. SPLEEN: Unremarkable. ADRENAL GLANDS: Unremarkable. KIDNEYS AND URETERS: Left kidney: Left kidney is larger than the right probably due to some swelling. There is stranding edema in the perinephric fat around the left kidney is not seen on right kidney. There is mild hydronephrosis of the right kidney distention renal pelvis calyces. No right-sided hydroureter however. No renal or ureteral stone. Exophytic 6 cm cyst at the upper pole of left kidney. No follow-up imaging is recommended for simple renal cyst. Right kidney: No edema or enlargement of the kidney. No renal or ureteral calculus. BLADDER: Unremarkable. GASTROINTESTINAL TRACT: There are scattered diverticula of the sigmoid and left colon. There is no diverticulitis. There is no bowel wall thickening /edema. There is no bowel obstruction. There is a moderate to large volume of stool in the colon. The appendix is normal . The small bowel loops are unremarkable. Percutaneous gastrotomy catheter in place. There is no hiatal hernia. ABDOMINAL WALL: No significant hernia is appreciated. LYMPH NODES: Normal. VASCULAR: Vascular calcifications in the wall of aorta. No aneurysm. PELVIC VISCERA: Prostate measures 5.5 cm transverse. OSSEOUS STRUCTURES: Bilateral spondylolysis L5 pars interarticularis. Multilevel degenerative spondylosis spine. CT/CT abdomen pelvis wo IV con IMPRESSION: 1. Mild hydronephrosis of left kidney. No renal or ureteral stone. 2. Cholelithiasis. 3. Diverticulosis of colon. No acute change of the bowel. 4. Percutaneous gastrotomy catheter in place. Fleischner guidelines were followed.
--- NOTE | ~2023-06-12 | XR_ITS ---
EXAMINATION: XR CHEST CLINICAL INFORMATION: Fever. COMPARISON: 02/11/2023 TECHNIQUE: Frontal view of the chest was obtained. FINDINGS: The lungs are well expanded. No focal consolidation. No pleural effusion. Cardiac silhouette is unchanged. XR/XR chest 1V IMPRESSION: No acute abnormality.
--- NOTE | ~2023-06-12 | CT_ITS ---
EXAMINATION: CT HEAD WITHOUT CONTRAST CLINICAL INFORMATION: Fall COMPARISON: 02/11/2023 TECHNIQUE: Contiguous axial imaging was performed from the skull base to vertex without intravenous administration of contrast. This CT examination was performed using dose optimization techniques as appropriate, variously including the following: *Automated exposure control *Adjustment of mA and/or kV according to patient size (this includes techniques or standardized protocols for targeted exams where dose is matched to indication/reason for exam; i.e. 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 Only a tiny punctate hyperdensity remains in the right thalamus, sagittal 8:96, coronal 7:102. No new hemorrhage seen. No abnormal extra-axial fluid collections. Mild atrophy and periventricular white matter changes again noted. Lens extractions have been performed. Sinuses and mastoids are free of disease. Bony structures are intact. Soft tissues are unremarkable. CT/CT head/brain wo IV con IMPRESSION: Interval evolution right thalamic hemorrhage. Punctate right thalamic hyperdensity likely residual. To confirm, consider nonenhanced CT follow-up in 12 hours. There are now: Pelvis: [place] At the time of this dictation, PSA service contacted to alert referring physician.
--- NOTE | ~2023-06-12 | XR_ITS ---
EXAMINATION: XR KNEE, LEFT CLINICAL INFORMATION: Left knee pain. COMPARISON: None available. TECHNIQUE: Four views of the left knee. FINDINGS: No acute fracture or dislocation. Mild medial compartment joint space narrowing. Tiny tricompartmental marginal osteophytes. No osseous erosion. Atherosclerotic calcifications. Xlpei-fi-uwmqifmr joint effusion. XR/XR knee LT 4V IMPRESSION: Mild tricompartmental osteoarthritis. Vxooj-nj-giwsreru joint effusion.
--- NOTE | ~2023-06-12 | FL_ITS ---
EXAMINATION: Modified Barium Swallow CLINICAL INFORMATION: Dysphagia COMPARISON: None TECHNIQUE: Modified barium swallow was performed under lateral fluoroscopy with patient in standing position. Different consistency of barium was administered by the speech therapist. FINDINGS: No laryngeal penetration or tracheal aspiration was observed during this examination. FLUOROSCOPY TIME: 2 minutes 31 seconds Number of Spot Images: 1 DOSE AREA PRODUCT: 1583 uGy-m2 (microgray-meter squared) FL/FL barium swallow modified IMPRESSION: No laryngeal penetration or tracheal aspiration was observed during this examination. Refer to the speech therapy report for further clarification This procedure was performed by Laith Urrutia PA-C, and supervised by Dr. Khanna
[2023-06-12 13:26] VITALS: BP 142/60; BP 150/60; PULSE 79; PULSE 80; RESP 18; TEMP 36.6; O2SAT 93; O2SAT 94; BMI 24.0
--- NOTE | 2023-06-12 13:51 | PC.NURSE ---
gambian interp utilized, patient states he fell forwards while walking with his walker, did not hit his head, no LOC, no neck pain. patient states the only pain he is having is from the c collar. patient states he did not have any chest pain or sob prior or after the event. patient is stating he would like to go to rehab because he states he cant ambulate with his walker around his apartment.
--- NOTE | 2023-06-12 14:05 | ECG_ITS ---
Test Reason : FALLS Blood Pressure : / mmHG Vent. Rate : 078 BPM Atrial Rate : 078 BPM P-R Int : 134 ms QRS Dur : 072 ms QT Int : 384 ms P-R-T Axes : 064 070 103 degrees QTc Int : 437 ms Normal sinus rhythm Nonspecific ST abnormality Abnormal ECG When compared with ECG of 11-FEB-2023 18:35, No significant change was found Referred By: Sangeetha Holman Electronically Signed By:YENIFER AGUILAR MD
--- NOTE | 2023-06-12 14:33 | ED.FALL ---
HPI - Fall General Chief Complaint: Fall Stated Complaint: WEAKNESS,FALL THIS AM,NECK/LT LEG PAIN PER EMS Time Seen by Provider: 06/12/23 13:47 Source: patient, old records reviewed and wire bender hand Mode of arrival: EMS Limitations: no limitations History of Present Illness HPI Narrative: 77 yo male with PMH of HTN, HLD, CKD, DM, weakness, CAD at home uses a walker today used walker and states he tripped fell injured L great toe but no other injuries no headstrike no LOC no neck pain. States he hates how little his apartment is and he can barely get around with the walker. He wants to go to rehab to get PT and more rest. MD complaint: fall Onset (ago): minute(s) (prior to arrival) Fall from: standing Fall witnessed: yes, by family Place fall occurred: home Loss of consciousness: none Prolonged down time: no Symptoms prior to fall: none Context: tripped/slipped Location of injury - extremities: left: foot Severity: mild Quality: dull Associated symptoms (after fall): denies Related Data Home Medications ?Medication ?Instructions ?Recorded ?Confirmed peg [id number] 1 1 drp ophthalmic (eye) BID PRN Dry 11/01/21 04/10/23 %-0.2 %-0.2 % eye drops (Dry Eye Eye(S) Relief) pioglitazone 30 mg tablet 30 mg PO DAILY 12/22/21 04/10/23 furosemide 20 mg tablet 20 mg PO BID 03/29/22 04/11/23 loratadine 10 mg tablet 10 mg PO Q OTHER DAY PRN allergies 03/29/22 04/10/23 pen needle, diabetic 32 gauge x #50 ea 03/29/22 11/08/22 (Pentips) aspirin 81 mg tablet,delayed 81 mg PO BEDTIME 07/11/22 04/10/23 release atorvastatin 40 mg tablet 40 mg PO BEDTIME 07/11/22 04/10/23 losartan 100 mg tablet 100 mg PO QPM 08/04/22 04/10/23 amlodipine 5 mg tablet 10 mg PO BEDTIME 04/10/23 04/11/23 gabapentin 300 mg capsule 300 mg PO BEDTIME 04/10/23 04/10/23 linagliptin 5 mg tablet (Tradjenta) 5 mg PO QAM 04/10/23 04/10/23 nystatin 100,000 unit/gram topical 1 appl topical BID 04/10/23 04/10/23 powder tramadol 50 mg tablet 25 mg PO DAILY PRN severe pain 04/10/23 04/10/23 empagliflozin 25 mg tablet 25 mg PO QAM 04/11/23 04/11/23 (Jardiance) Previous Rx's ?Medication ?Instructions ?Recorded blood sugar diagnostic (OneTouch #150 ea 04/28/21 Verio test strips) blood-glucose meter (OneTouch #1 ea 04/28/21 Verio Meter) lancets 33 gauge (OneTouch Delica #200 ea 04/28/21 Lancets) carvedilol 6.25 mg tablet (Coreg) 6.25 mg PO BID 90 days #180 tabs 11/08/22 insulin lispro 100 unit/mL See Rx Instructions subcut 02/20/23 subcutaneous pen .COMPLEX #45 mL pantoprazole 40 mg tablet,delayed 40 mg PO QAM #90 tabs 02/20/23 release insulin glargine U-300 conc 300 108 unit (0.36 mL) subcut BEDTIME 03/04/23 unit/mL (1.5 mL) subcutaneous pen #4.5 mL (Toujeo SoloStar U-300 Insulin) cefuroxime axetil 250 mg tablet 250 mg PO BID 7 days #14 tabs 04/06/23 Allergies Allergy/AdvReac Type Severity Reaction Status Date / Time No Known Allergies Allergy Mild N/A Verified 06/12/23 13:32 Review of Systems Review of Systems: Constitutional : No Fever, No Chills ENT/Mouth : No Ear Pain, No Hoarseness, No sore throat Eyes: No Eye Pain, No Swelling, No Redness, No Foreign Body Cardiovascular : No Chest Pain, No SOB Respiratory : No Cough, No Dyspnea Gastrointestinal : No Nausea, No Vomiting, No Diarrhea, No abdominal Pain Genitourinary : No Dysuria, No Hematuria Musculoskeletal : positive joint pain, No Myalgias, No Joint Swelling Skin : No Skin lacerations, No rash Neuro : No Weakness, No Numbness, No Loss of Consciousness, No Dizziness, No Headache All other systems reviewed and are negative [facility] Past Medical History Attestation statement: The following information was validated with the patient. Source: old records reviewed Medical History NSTEMI (non-ST elevated myocardial infarction) Sepsis Pneumonia Type 2 diabetes mellitus with diabetic polyneuropathy Diverticulosis Erectile dysfunction BPH (benign prostatic hyperplasia) Carpal tunnel syndrome Cataracts, bilateral GERD (gastroesophageal reflux disease) Kidney stones Type 2 diabetes mellitus with chronic kidney disease Chronic kidney disease, stage 3 Type 2 diabetes mellitus with hyperglycemia Essential hypertension Hyperlipidemia LDL goal <70 Surgical History Hx of colonoscopy Hx of lithotripsy Family History Family History Father No problems noted. Mother Diabetes mellitus Brother Diabetes mellitus Sister Diabetes mellitus Social History Social History Household Members: Spouse and Children Alcohol intake: never Patient Tobacco Use Status: Never used Tobacco Advance Directives: Yes Advance Directives on File: Yes Advance Directives Date on File: 04/11/23 Do you have a plan to hurt others: No Plan service: No Current occupational status: retired Physical Exam Vital Signs: Vital Signs: Last Vital Signs Temp 97.8 F 06/12/23 13:26 Pulse 79 06/12/23 13:26 Resp 18 06/12/23 13:26 BP 142/60 H 06/12/23 13:26 Pulse Ox 93 06/12/23 13:26 O2 Del Method Room Air 06/12/23 13:26 BMI result Body Mass Index 24.0 Appearance: Alert. Oriented X3. No acute distress. Eyes: Pupils equal, round and reactive to light. ENT: Pharynx normal. atraumatic Neck: Normal inspection. Neck supple. no midline ttp CVS: Normal heart rate and rhythm. Pulses normal. Respiratory: No respiratory distress. Breath sounds normal. Abdomen: Soft and nontender. Skin: Skin warm and dry. Normal skin color. Normal skin turgor. Extremities: No lower extremity edema. No calf ttp . L toe ttp Neuro: Oriented X 3. No motor deficit. No sensory deficit. Course Course Course Narrative: signed out to Dr. Brandt pending repeat labs and imaging Medical Decision Making Medical Decision Making MDM Narrative: 77 yo male with PMH of HTN, HLD, CKD, DM, weakness, CAD at home here after trip and fall at home at this time will need basic labs, EKG, xray of foot, CT head given age - wants to go to rehab will involve PT/CM. 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 06/12/23 14:51 06/12/23 14:51 Labs: Lab Results 06/12/23 Range/Units 14:51 WBC 9.7 (4.8-10.8) X10*3/uL RBC 4.31 L (4.60-5.80) X10*6/uL Hgb 11.5 L (14.0-18.0) g/dl Hct 36.2 L (42.0-52.0) % MCV 84.0 (80.0-98.0) fL MCH 26.7 L (27.0-33.0) pg MCHC 31.8 (31.0-36.0) g/dl RDW 14.5 (11.0-16.0) % Plt Count 316 (160-400) X10*3/uL MPV 9.8 (9.4-12.4) fL Immature Gran % (Auto) 0.3 (0.0-0.4) % Neut % (Auto) 71.7 (45-73) % Lymph % (Auto) 16.6 L (20-40) % Long % (Auto) 10.1 (2-11) % Eos % (Auto) 1.2 (0-4) % Baso % (Auto) 0.1 (0-2) % Lymph # (Auto) 1.6 (1.2-4.9) X10*3/uL Long # (Auto) 1.0 (0.1-1.2) X10*3/uL Eos # (Auto) 0.1 (0.0-0.4) X10*3/uL Baso # (Auto) 0.0 (0.0-0.2) X10*3/uL Abs Immat Gran (auto) 0.03 (0.00-0.03) X10*3/uL Absolute Neuts (auto) 6.9 (2.0-8.3) x10*3/uL Absolute Nucleated RBC 0.000 (0.0-0.012) X10*3/uL Nucleated RBC % (auto) 0.0 (0.0-0.2) /100WBC Sodium 138 (135-145) mmol/L Potassium 4.3 (3.3-5.1) mmol/L Chloride 102 (96-108) mmol/L Carbon Dioxide 24 (22-29) mmol/L Anion Gap 16 (12-20) BUN 30 H (9-16) mg/dL Creatinine 2.72 H (0.5-1.4) mg/dL Estim Creat Clear Calc 22.3 Estimated GFR 23 Random Glucose 271 H (60-115) mg/dL Calcium 9.8 (8.4-10.2) mg/dL Magnesium 2.5 (1.6-2.6) mg/dL Total Bilirubin 0.5 (0.0-1.0) mg/dL Direct Bilirubin 0.2 (0.0-0.5) mg/dL AST 14 (5-37) U/L ALT 14 (0-40) U/L Alkaline Phosphatase 116 (39-117) U/L Total Protein 8.2 H (6.5-8.0) g/dL Albumin 3.4 L (3.5-5.0) g/dL Influenza Type A (PCR) NEGATIVE (Negative) Influenza Type B (PCR) NEGATIVE (Negative) RSV RNA Qual (PCR) NEGATIVE (Negative) SARS-CoV-2 RNA (RT-PCR) NEGATIVE (Negative) Independent Interpretation I performed an independent interpretation of an: EKG, Plain X-Ray and CT Scan Interpretation: Rate: 78 Rhythm: NSR Mcdade: normal Normal P waves. Normal RAIN. Normal QRS complex. ST T wave : inverted t wave I and aVL, no SHANELL qTC: 437 prior studies: no sig ischemia The study has been interpreted contemporaneously by me. . Radiology Impression Discussion of test interpretation with radiology: I have reviewed the radiologist's reading. Independent Historian Clinical information obtained from an independent historian. History obtained from or confirmed by: EMS External Record Review External record reviewed: Inpatient record Discharge Plan Discharge Clinical Impression: Sprain of toe, great, left, At high risk for falls, Acute kidney injury superimposed on chronic kidney disease Patient Disposition: Still a Patient Prescriptions: No Action (DME) blood-glucose meter [OneTouch Verio Meter] Misc See Rx Instructions .ROUTE .MEDSUPPLY Qty: 1 0RF Rx Instructions: As directed 4x/day (DME) OneTouch Verio test strips Strip See Rx Instructions .ROUTE .MEDSUPPLY Qty: 150 11RF Rx Instructions: 4 x/day (DME) lancets [OneTouch Delica Lancets] 33 gauge misc See Rx Instructions .ROUTE .MEDSUPPLY Qty: 200 10RF Rx Instructions: four times a day pantoprazole 40 mg tablet,delayed release (DR/EC) 40 mg PO QAM Qty: 90 1RF insulin lispro 100 unit/mL insulin pen See Rx Instructions subcut .COMPLEX Qty: 45 4RF Rx Instructions: 40 units with breakfast and lunch and 50 units with dinner subcutaneously; Toujeo SoloStar U-300 Insulin 300 unit/mL (1.5 mL) insulin pen 108 unit subcut BEDTIME Qty: 4.5 3RF Dry Eye Relief 1-0.2-0.2 % Drops 1 drp OPHTHALMIC (EYE) BID PRN (Reason: Dry Eye(S)) pioglitazone 30 mg tablet 30 mg PO DAILY cefuroxime axetil 250 mg tablet 250 mg PO BID 7 Days Qty: 14 0RF Rx Instructions: x 7 days, finish 04/14/23 amlodipine 5 mg tablet 10 mg PO BEDTIME tramadol 50 mg tablet 25 mg PO DAILY PRN (Reason: severe pain) gabapentin 300 mg capsule 300 mg PO BEDTIME nystatin 100,000 unit/gram powder 1 appl topical BID Tradjenta 5 mg tablet 5 mg PO QAM Jardiance 25 mg tablet 25 mg PO QAM aspirin 81 mg tablet,delayed release (DR/EC) 81 mg PO BEDTIME atorvastatin 40 mg tablet 40 mg PO BEDTIME (DME) pen needle, diabetic [Pentips] 32 gauge x needle See Rx Instructions .ROUTE .MEDSUPPLY Qty: 50 Rx Instructions: As directed 4 TIMES A DAY furosemide 20 mg tablet 20 mg PO BID loratadine 10 mg tablet 10 mg PO Q OTHER DAY PRN (Reason: allergies) losartan 100 mg tablet 100 mg PO QPM carvedilol [Coreg] 6.25 mg tablet 6.25 mg PO BID 90 Days Qty: 180 3RF Rx Instructions: must administer with a meal/food Print Language: Fijian
[2023-06-12 14:55] LABS: MANUAL DIFF FLAG NO
[2023-06-12 15:01] LABS: Basophils Percent Auto 0.1 % (0-2); Eosinophils Absolute Auto 0.1 X10*3/uL (0.0-0.4); Eosinophils Percent Auto 1.2 % (0-4); Hematocrit 36.2 % (42.0-52.0); Hemoglobin 11.5 g/dl (14.0-18.0); Imm Gran Abs Auto 0.03 X10*3/uL (0.00-0.03); Imm Gran Pct Auto 0.3 % (0.0-0.4); Lymphocytes Absolute Auto 1.6 X10*3/uL (1.2-4.9); Lymphocytes Percent Auto 16.6 % (20-40); Mean Corpuscular HGB Conc 31.8 g/dl (31.0-36.0); Mean Corpuscular Hemoglobin 26.7 pg (27.0-33.0); Mean Platelet Volume 9.8 fL (9.4-12.4); Monocytes Percent Auto 10.1 % (2-11); Neutrophils Absolute Auto 6.9 x10*3/uL (2.0-8.3); Neutrophils Percent Auto 71.7 % (45-73); Platelet Count 316 X10*3/uL (160-400); Red Blood Count 4.31 X10*6/uL (4.60-5.80); Red Cell Distribution Width 14.5 % (11.0-16.0); White Blood Count 9.7 X10*3/uL (4.8-10.8)
[2023-06-12 15:13] LABS: Alanine Aminotransferase 14 U/L (0-40); Albumin Level 3.4 g/dL (3.5-5.0); Alkaline Phosphatase 116 U/L (39-117); Anion Gap 16 (12-20); Aspartate Amino Transferase 14 U/L (5-37); Bilirubin Direct 0.2 mg/dL (0.0-0.5); Bilirubin Total 0.5 mg/dL (0.0-1.0); Blood Urea Nitrogen 30 mg/dL (9-16); Calcium 9.8 mg/dL (8.4-10.2); Carbon Dioxide 24 mmol/L (22-29); Chloride 102 mmol/L (96-108); Creatinine Clr Calc Pharmacy 22.3; Estimated Glomerular Filt Rate 23; Glucose Random 271 mg/dL (60-115); Magnesium 2.5 mg/dL (1.6-2.6); Potassium 4.3 mmol/L (3.3-5.1); Sodium 138 mmol/L (135-145); Total Protein 8.2 g/dL (6.5-8.0)
[2023-06-12 15:36] LABS: Influenza A PCR NEGATIVE (Negative); Influenza B PCR NEGATIVE (Negative); Resp Syncy Virus RNA Qual PCR NEGATIVE (Negative); SARS COV2 PCR INHOUSE NEGATIVE (Negative)
[2023-06-12 16:06] VITALS: BP 116/61; PULSE 76; RESP 16; TEMP 36.8; O2SAT 95
[2023-06-12] MEDS: 0.9 % Sodium Chloride 1,000 ML 999 ML IV (16:07)
[2023-06-12 17:34] LABS: Appearance Urine Cloudy; Color Urine Yellow; Glucose Urine UA >=1000 mg/dL (Negative); Leukocyte Esterase Urine Moderate (2+) (Negative); Nitrite Urine Negative (Negative); PH 5.5 (5.0-9.0); UMIC TRIGGER UACC YES; Urine Blood Small (1+) (Negative); Urine Ketones Negative (Negative); Urine Protein 30 (1+) mg/dL (Neg-Trace)
[2023-06-12 17:36] LABS: Anion Gap 13 (12-20); Blood Urea Nitrogen 30 mg/dL (9-16); Calcium 9.1 mg/dL (8.4-10.2); Carbon Dioxide 23 mmol/L (22-29); Chloride 105 mmol/L (96-108); Estimated Glomerular Filt Rate 26; Glucose Random 207 mg/dL (60-115); Potassium 4.4 mmol/L (3.3-5.1); Sodium 137 mmol/L (135-145)
[2023-06-12 17:52] LABS: Bacteria Urine None Seen (None Seen); Hyaline Casts Urine 0-2 /LPF (0-2); RBC Urine 0-2 /HPF (0-2); Squamous Epithelial Cell Urine 0-2 /HPF (0-2); UACC Culture Trigger YES; WBC Urine >50 /HPF (0-5)
--- NOTE | 2023-06-12 22:03 | MHC.CM.ED ---
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 Pt is A&Ox4. Lives with . Uses a walker. States had 2 recent falls. Currently has no services, but patient states he will have 33 hours of [employer] services/weekly through [facility]. PCP verified. HCP on file. HCP #1 Diana Jaramillo () [phone] and #2 Arianne Gandhinte ([phone]). Pt is requesting STR because he falls. PT is pending. First choice is [facility]. Will place referrals locally that contract with [facility]. CM will follow for discharge needs.
[2023-06-12 22:45] VITALS: BP 100/39; PULSE 77; RESP 17; TEMP 37.6; O2SAT 94
[2023-06-13 04:41] VITALS: BP 172/76; PULSE 79; RESP 17; TEMP 37.1; O2SAT 93
[2023-06-13 08:00] VITALS: TEMP 38.4
[2023-06-13] MEDS: cefTRIAXone sodium 1 GM in 0.9 % Sodium Chloride 50 ML IV (09:37)
[2023-06-13 09:44] VITALS: TEMP 37.9
[2023-06-13 09:48] LABS: Lactic Acid 1.5 mmol/L (0.5-2.0)
[2023-06-13 10:11] LABS: MANUAL DIFF FLAG NO
[2023-06-13 10:16] LABS: Basophils Percent Auto 0.2 % (0-2); Eosinophils Absolute Auto 0.1 X10*3/uL (0.0-0.4); Eosinophils Percent Auto 1.4 % (0-4); Hematocrit 33.6 % (42.0-52.0); Hemoglobin 10.9 g/dl (14.0-18.0); Imm Gran Abs Auto 0.04 X10*3/uL (0.00-0.03); Imm Gran Pct Auto 0.4 % (0.0-0.4); Lymphocytes Absolute Auto 1.5 X10*3/uL (1.2-4.9); Lymphocytes Percent Auto 14.4 % (20-40); Mean Corpuscular HGB Conc 32.4 g/dl (31.0-36.0); Mean Corpuscular Hemoglobin 27.3 pg (27.0-33.0); Mean Platelet Volume 10.1 fL (9.4-12.4); Monocytes Absolute Auto 0.9 X10*3/uL (0.1-1.2); Monocytes Percent Auto 8.5 % (2-11); Neutrophils Absolute Auto 7.8 x10*3/uL (2.0-8.3); Neutrophils Percent Auto 75.1 % (45-73); Platelet Count 289 X10*3/uL (160-400); Red Cell Distribution Width 14.7 % (11.0-16.0); White Blood Count 10.3 X10*3/uL (4.8-10.8)
[2023-06-13 10:28] LABS: Anion Gap 14 (12-20); Blood Urea Nitrogen 29 mg/dL (9-16); Calcium 8.9 mg/dL (8.4-10.2); Carbon Dioxide 23 mmol/L (22-29); Chloride 103 mmol/L (96-108); Creatinine Clr Calc Pharmacy 24.6; Estimated Glomerular Filt Rate 26; Glucose Random 390 mg/dL (60-115); Potassium 4.5 mmol/L (3.3-5.1); Sodium 135 mmol/L (135-145)
[2023-06-13] MEDS: 0.9 % Sodium Chloride 1,000 ML 999 ML IV (10:58)
[2023-06-13] MEDS: Acetaminophen 325 MG TABLET 650 MG PO (10:59)
[2023-06-13] MEDS: Insulin Regular, Human 100 UNIT/ML 3 ML VIAL IVPUSH (11:00)
--- NOTE | 2023-06-13 11:15 | PC.NURSE ---
assumed care of patient at this time, patient resting comfortably in bed, no needs at this time, call blum in place.
--- NOTE | 2023-06-13 11:34 | PC.NURSE ---
assumed care of pt at 0700. pt a&o x4, pleasant, calm, and cooperative. pt montenegrin speaking only. pt helped to bathroom by ED staff, found to be warm. temperature taken, pt with fever. labs drawn, fluids hung and pt medicated per apr. pt now resting quietly on stretcher with visitor at bedside. rr even/unlabored. plan of care ongoing.
[2023-06-13 14:44] VITALS: BP 144/64; PULSE 72; RESP 16; TEMP 36.1; O2SAT 95
--- NOTE | 2023-06-13 16:00 | MHC.CM.ED ---
Addendum entered by Kim Carroll 06/13/23 16:30: Patient's daughter, Verenice, made aware via telephone at [phone]. Original Note: Patient remains in ER overflow. Physical therapy eval completed. Short term rehab is recommended. [facility] [place] is 1st choice and can offer a bed tomorrow 06/13. [facility] will obtain ins auth. Continue to monitor for d/c needs.
[2023-06-13 16:08] VITALS: BP 135/63; PULSE 76; RESP 16; TEMP 36.3; O2SAT 97
--- NOTE | 2023-06-13 16:20 | MHC.EDTECH ---
THIS PCT ASSUMED CARE OF PATIENT AT 1500 ,VITALS TAKEN BLOOD SUGAR CHECK ,RN ZULLY AND MARIA E AWARE OF PATIENT RESULT OF 435 ,PATIENT BELONGING LIST DONE ,PATIENT WAS REPOSITION AND BOOSTED UP IN BED ,CALL LE WITHIN PATIENT REACH .
[2023-06-13 17:09] LABS: Glucose, Whole Blood 435 mg/dL (60-115)
[2023-06-13] MEDS: Insulin Lispro 100 UNIT/ML 3 ML VIAL 10 UNIT SUBCUT (17:26)
--- NOTE | 2023-06-13 17:26 | MHC.EDTECH ---
PATIENT WAS GIVEN DINNER ,PATIENT SAID HE WAS NOT HUNGRY ,ELICEO JUSTICE .
[2023-06-13 19:53] VITALS: BP 153/73; PULSE 76; RESP 16; TEMP 36.7; O2SAT 97
--- NOTE | 2023-06-13 20:02 | MHC.EDTECH ---
2000 rounding done ,vitals taken ,pt not wanting to eat or drink ,blood sugar check ,rn mesha aware of result of 342 .
[2023-06-13 20:05] LABS: Glucose, Whole Blood 342 mg/dL (60-115)
[2023-06-13] MEDS: cefuroxime axetiL 250 MG TABLET PO (21:49)
[2023-06-13] MEDS: Insulin Lispro 100 UNIT/ML 3 ML VIAL SUBCUT (21:49)
[2023-06-13 22:13] LABS: Glucose, Whole Blood 239 mg/dL (60-115)
[2023-06-14 00:04] VITALS: BP 135/58; PULSE 82; RESP 14; TEMP 39.2; O2SAT 94
--- NOTE | 2023-06-14 00:08 | MHC.EDTECH ---
0000 rounding done vitals taken ,Provider Esequiel and RN Kary aware of Patient high temp of 102 .6 ,300 ml empty from urinal Patient was reposition and boosted up in bed .
[2023-06-14] MEDS: Acetaminophen 325 MG TABLET 650 MG PO (00:43)
[2023-06-14 01:29] VITALS: BP 134/63; PULSE 76; RESP 15; TEMP 37.2; O2SAT 97
[2023-06-14 02:01] LABS: Glucose, Whole Blood 186 mg/dL (60-115)
--- NOTE | 2023-06-14 02:04 | MHC.EDTECH ---
0200 rounding done ,blood sugar check result was 186 ,rn mesha aware ,Patient still not wanting to eat or drink ,rn aware .
[2023-06-14 03:30] LABS: Glucose, Whole Blood 209 mg/dL (60-115)
[2023-06-14 04:38] LABS: Glucose, Whole Blood 204 mg/dL (60-115)
[2023-06-14 05:44] VITALS: BP 118/52; PULSE 68; RESP 20; TEMP 36.7; O2SAT 94
[2023-06-14 07:26] LABS: Glucose, Whole Blood 211 mg/dL (60-115)
[2023-06-14] MEDS: cefuroxime axetiL 250 MG TABLET PO (07:54)
[2023-06-14] MEDS: Insulin Lispro 100 UNIT/ML 3 ML VIAL SUBCUT ×4 (07:54→21:55)
[2023-06-14 07:55] VITALS: TEMP 36.8
--- NOTE | 2023-06-14 08:28 | PC.NURSE ---
G tube feed started per order, patient tolerating well
[2023-06-14 12:16] LABS: Glucose, Whole Blood 285 mg/dL (60-115)
--- NOTE | 2023-06-14 13:06 | MHC.CM.ED ---
Addendum entered by Kim Carroll 06/14/23 14:04: Received notification from Candace SANCHEZ that patient will be admitted. Arianne made aware via telephone. Mal Mazariegos of [place] made aware via [facility]. Original Note: Patient remains in ER. Mal Mazariegos of [place] has obtained insurance auth. Patient can leave at 430pm. [facility] LARES booked. Med [facility] with chart. Patient, daughter ArianneSandra RN and Candace SANCHEZ aware. Continue to monitor for d/c needs.
[2023-06-14 14:42] LABS: MANUAL DIFF FLAG NO
[2023-06-14 14:49] LABS: Basophils Percent Auto 0.2 % (0-2); Eosinophils Absolute Auto 0.3 X10*3/uL (0.0-0.4); Eosinophils Percent Auto 2.1 % (0-4); Hematocrit 34.5 % (42.0-52.0); Hemoglobin 11.1 g/dl (14.0-18.0); Imm Gran Abs Auto 0.04 X10*3/uL (0.00-0.03); Imm Gran Pct Auto 0.3 % (0.0-0.4); Lymphocytes Absolute Auto 1.8 X10*3/uL (1.2-4.9); Lymphocytes Percent Auto 14.1 % (20-40); Mean Corpuscular HGB Conc 32.2 g/dl (31.0-36.0); Mean Corpuscular Hemoglobin 26.5 pg (27.0-33.0); Mean Corpuscular Volume 82.3 fL (80.0-98.0); Mean Platelet Volume 9.8 fL (9.4-12.4); Monocytes Absolute Auto 0.7 X10*3/uL (0.1-1.2); Monocytes Percent Auto 5.4 % (2-11); Neutrophils Absolute Auto 9.9 x10*3/uL (2.0-8.3); Neutrophils Percent Auto 77.9 % (45-73); Platelet Count 338 X10*3/uL (160-400); Red Blood Count 4.19 X10*6/uL (4.60-5.80); Red Cell Distribution Width 14.6 % (11.0-16.0); White Blood Count 12.7 X10*3/uL (4.8-10.8)
[2023-06-14 15:11] LABS: Alanine Aminotransferase 12 U/L (0-40); Albumin Level 3.2 g/dL (3.5-5.0); Alkaline Phosphatase 114 U/L (39-117); Anion Gap 13 (12-20); Aspartate Amino Transferase 12 U/L (5-37); Bilirubin Total 0.4 mg/dL (0.0-1.0); Blood Urea Nitrogen 25 mg/dL (9-16); Calcium 9.4 mg/dL (8.4-10.2); Carbon Dioxide 24 mmol/L (22-29); Chloride 105 mmol/L (96-108); Creatinine Clr Calc Pharmacy 28.8; Estimated Glomerular Filt Rate 31; Glucose Random 336 mg/dL (60-115); Potassium 4.7 mmol/L (3.3-5.1); Sodium 137 mmol/L (135-145); Total Protein 8.2 g/dL (6.5-8.0)
--- NOTE | 2023-06-14 16:12 | PHA.MEDREC ---
Pharmacy Consult ? Medication Reconciliation Pharmacy has completed the medication reconciliation. Patient does know medications, contact [facility] for med list but list was never sent. Had list of medications from [facility]. Lasix and Mirtazepine not on [facility] list but is on claim history. Lasix is Q48H therefore most likely no on the list and Mirtazepine is a newer prescription therefore may not have made it into the most recent box. Utilized insulin dose based on claim history. Elisabeth Moncada, Hilton[place]
--- NOTE | 2023-06-14 17:14 | PM.IMHP ---
History of Present Illness Date of Service: 06/14/23 Chief Complaint: fever This history was taken in Egyptian from the patient. 77yo M with HTN, HLD, CKD3, DM2, nephrolithiasis, CVA with L hemiparesis after which he was on G-tube feeds. Presented to ED 06/12/23 after tripping on walker and injuring is L toe. Was awaiting STR placement in the ED. Diagnosed with UTI and started cefuroxime. On 06/13/23, he developed fever to 101F in the morning. Blood cultures, CXR and ceftriaxone were ordered. CXR negative. Influenza/Covid/RSV PCRs all negative. WBC count was normal. Lactate was normal. He was given empiric ceftriaxone. Today he devloped a fever to 102.6. Urine microbiology was positive for yeast. Fluconazole was ordered per ID consultation; doxycycline was also started. CT abdomen showed mild left hydronephrosis but no pyelonephritis or stones. Nothing grew from blood cultures at 24 hr. Overall, other than the fever, he actually feels quite well and denies any flank pain or urinary burning/urgency. Review of Systems Review of Systems: Yes all other systems are reviewed and are negative [facility] Medical History NSTEMI (non-ST elevated myocardial infarction) Sepsis Pneumonia Type 2 diabetes mellitus with diabetic polyneuropathy Diverticulosis Erectile dysfunction BPH (benign prostatic hyperplasia) Carpal tunnel syndrome Cataracts, bilateral GERD (gastroesophageal reflux disease) Kidney stones Type 2 diabetes mellitus with chronic kidney disease Chronic kidney disease, stage 3 Type 2 diabetes mellitus with hyperglycemia Essential hypertension Hyperlipidemia LDL goal <70 Family History Father No problems noted. Mother Diabetes mellitus Brother Diabetes mellitus Sister Diabetes mellitus Surgical History Hx of colonoscopy Hx of lithotripsy Social History Household Members: Spouse and Children Alcohol intake: never Patient Tobacco Use Status: Never used Tobacco Advance Directives: Yes Advance Directives on File: Yes Advance Directives Date on File: 04/11/23 Do you have a plan to hurt others: No Plan service: No Current occupational status: retired Meds Allergies Allergy/AdvReac Type Severity Reaction Status Date / Time No Known Allergies Allergy Mild N/A Verified 06/12/23 13:32 Active Medications: Current Medications Acetaminophen (Acetaminophen 325 Mg Tablet) 650 mg PO Q6H PRN PRN Reason: Fever Last Admin: 06/14/23 00:43 Dose: 650 mg Amlodipine Besylate (Amlodipine Besylate 5 Mg Tablet) 5 mg PO BEDTIME [facility]; Protocol Artificial Tears (Artificial Tears 15 Ml Drops) 1 drop EYE-BOTH BID PRN PRN Reason: Dry Eye(S) Carvedilol (Carvedilol 6.25 Mg Tablet) 6.25 mg PO BID [facility]; Protocol Doxycycline Monohydrate (Doxycycline Monohydrate 100 Mg Capsule) 100 mg PO BID [facility] Fluconazole (Fluconazole 100 Mg Tablet) 100 mg PO DAILY [facility] Last Admin: 06/14/23 14:01 Dose: Not Given Gabapentin (Gabapentin 300 Mg Capsule) 300 mg PO BEDTIME [facility] Glucose (Glucose Gel 15 Gm Gel..Gram.) 15 gm PO Q15M PRN; Protocol PRN Reason: per Hypoglycemia Standing Ord. Glucose (Glucose Gel 15 Gm Gel..Gram.) 15 gm PO Q15M PRN; Protocol PRN Reason: per Hypoglycemia Standing Ord. Dextrose (D10) 250 mls @ 750 mls/hr IV Q15M PRN; Protocol PRN Reason: per Hypoglycemia Standing Ord. Ceftriaxone Sodium 1 gm/ (Sodium Chloride) 50 mls @ 100 mls/hr IV Q24H [facility] Dextrose (D10) 250 mls @ 750 mls/hr IV Q15M PRN; Protocol PRN Reason: per Hypoglycemia Standing Ord. Insulin Glargine (Insulin Glargine,Hum.Rec.Anlog 100 Unit/Ml 10 Ml Vial) 80 unit SUBCUT BEDTIME [facility] Insulin Human Lispro (Insulin Lispro 100 Unit/Ml 3 Ml Vial) 0 unit SUBCUT QIDACHS [facility]; Protocol Last Admin: 06/14/23 14:16 Dose: 6 unit Insulin Human Lispro (Insulin Lispro 100 Unit/Ml 3 Ml Vial) 0 unit SUBCUT QIDACHS [facility]; Protocol Mirtazapine (Mirtazapine 15 Mg Tablet) 15 mg PO BEDTIME [facility] Omeprazole (Omeprazole 20 Mg Capsule.Dr) 20 mg PO DAILY@0630 [facility] Tramadol HCl (Tramadol Hcl 50 Mg Tablet) 25 mg PO DAILY PRN PRN Reason: severe pain Home Medications ?Medication ?Instructions ?Recorded ?Confirmed ?Last Taken ?Type peg [id number] 1 1 drp ophthalmic (eye) BID PRN Dry 11/01/21 06/14/23 10/31/21 History %-0.2 %-0.2 % eye drops (Dry Eye Eye(S) Relief) furosemide 20 mg tablet 20 mg PO Q48H 03/29/22 06/14/23 Unknown History pen needle, diabetic 32 gauge x #50 ea 03/29/22 11/08/22 Unknown History ([employer]ips) amlodipine 5 mg tablet (Norvasc) 5 mg PO BEDTIME 04/10/23 06/14/23 Unknown History gabapentin 300 mg capsule 300 mg PO BEDTIME 04/10/23 06/14/23 Unknown History tramadol 50 mg tablet 25 mg PO DAILY PRN severe pain 04/10/23 06/14/23 Unknown History empagliflozin 25 mg tablet 25 mg PO QAM 04/11/23 06/14/23 Unknown History (Jardiance) insulin glargine U-300 conc 300 80 unit subcut BEDTIME 06/14/23 06/14/23 Unknown History unit/mL (1.5 mL) subcutaneous pen ([employer] SoloStar U-300 Insulin) insulin lispro 100 unit/mL 15 unit subcut TIDAC 06/14/23 06/14/23 3 Weeks Ago History subcutaneous pen ~05/23/23 15 unit mirtazapine 15 mg disintegrating 15 mg PO BEDTIME 06/14/23 06/14/23 Unknown History tablet Physical Exam Vital Signs and Narrative: Vital Signs: Last Vital Signs Temp 98.2 F 06/14/23 07:55 Pulse 68 06/14/23 05:44 Resp 20 06/14/23 05:44 BP 118/52 L 06/14/23 05:44 Pulse Ox 94 06/14/23 05:44 O2 Del Method Room Air 06/14/23 05:44 BMI result Body Mass Index 24.0 Gen: in no acute distress HEENT: sclera anicteric, moist mucus membranes Neck: supple Lungs: clear to auscultation bilaterally Heart: regular rate and rhythm, no murmurs Abd: soft, non-tender, non-distended, Gtube in place : no CVA tenderness, no suprapubic tenderness Ext: no edema Skin: warm/well-perfused Neuro: alert and oriented x3, L hemiparesis Psych: appropriate affect Results Labs 06/14/23 14:34 06/14/23 14:34 Labs: Laboratory Results - last 24 hr 06/13/23 06/13/23 06/14/23 19:56 22:06 01:57 MCV MCH MCHC RDW Plt Count MPV Immature Gran % (Auto) Neut % (Auto) Lymph % (Auto) [place] % (Auto) Eos % (Auto) Baso % (Auto) Lymph # (Auto) [place] # (Auto) Eos # (Auto) Baso # (Auto) Abs Immat Gran (auto) Absolute Neuts (auto) Absolute Nucleated RBC Nucleated RBC % (auto) Anion Gap Estim Creat Clear Calc Estimated GFR POC Glucose 342 H 239 H 186 H Random Glucose Calcium Total Bilirubin AST ALT Alkaline Phosphatase Total Protein Albumin 06/14/23 06/14/23 06/14/23 03:24 04:34 07:23 MCV MCH MCHC RDW Plt Count MPV Immature Gran % (Auto) Neut % (Auto) Lymph % (Auto) [place] % (Auto) Eos % (Auto) Baso % (Auto) Lymph # (Auto) [place] # (Auto) Eos # (Auto) Baso # (Auto) Abs Immat Gran (auto) Absolute Neuts (auto) Absolute Nucleated RBC Nucleated RBC % (auto) Anion Gap Estim Creat Clear Calc Estimated GFR POC Glucose 209 H 204 H 211 H Random Glucose Calcium Total Bilirubin AST ALT Alkaline Phosphatase Total Protein Albumin 06/14/23 06/14/23 12:12 14:34 MCV 82.3 MCH 26.5 L MCHC 32.2 RDW 14.6 Plt Count 338 MPV 9.8 Immature Gran % (Auto) 0.3 Neut % (Auto) 77.9 H Lymph % (Auto) 14.1 L [place] % (Auto) 5.4 Eos % (Auto) 2.1 Baso % (Auto) 0.2 Lymph # (Auto) 1.8 [place] # (Auto) 0.7 Eos # (Auto) 0.3 Baso # (Auto) 0.0 Abs Immat Gran (auto) 0.04 H Absolute Neuts (auto) 9.9 H Absolute Nucleated RBC 0.000 Nucleated RBC % (auto) 0.0 Anion Gap 13 Estim Creat Clear Calc 28.8 Estimated GFR 31 POC Glucose 285 H Random Glucose 336 H Calcium 9.4 Total Bilirubin 0.4 AST 12 ALT 12 Alkaline Phosphatase 114 Total Protein 8.2 H Albumin 3.2 L Imaging Radiologist's Impressions: Impressions Abdomen/Pelvis CT 06/14/23 15:32 IMPRESSION: 1. Mild hydronephrosis of left kidney. No renal or ureteral stone. 2. Cholelithiasis. 3. Diverticulosis of colon. No acute change of the bowel. 4. Percutaneous gastrotomy catheter in place. Fleischner guidelines were followed. Assessment and Plan (1) Fever: Status: Acute Plan 77yo M with HTN, HLD, CKD3, DM2, nephrolithiasis, CVA with L hemiparesis presenting after mechanical fall and was awaiting rehab placement but then developed fever, likely urinary source, possibly candiduria. febrile UTI, possibly fungal - admit to M/S, continue ceftriaxone + doxycycline + fluconazole, follow BCx/UCx, consult ID. Hold empagliflozin given association with UTIs CKD3 - SCr at baseline, monitor carefully HTN - amlodipine, carvedilol; hold furosemide for now DM2 - basal-bolus insulin tube feeds - [employer] + Nutrition evaluations. Pt unsure why his TFs were restarted in the ED. He states he has been eating normally PO at home. Re-evaluate need for G-tube. neuropathy - gabapentin mood disorder - mirtazapine VTE prophylaxis - UFH dispo - STR code status - full I anticipate that the patient will stay at least 2 midnights as an inpatient in the hospital due to the above reasons. It is neither reasonable nor safe to care for them in a less acute setting. Quality Stroke Does the patient have a stroke diagnosis?: No VTE Prior VTE?: No VTE Risk Level:: Medical - moderate - high VTE Device Contraindication: N/A - Device Ordered VTE Drug Contraindication: N/A - Med Ordered
[2023-06-14 18:39] LABS: Glucose, Whole Blood 330 mg/dL (60-115)
[2023-06-14 18:40] VITALS: BP 143/78; PULSE 77; RESP 16; TEMP 38; O2SAT 95
[2023-06-14] MEDS: Heparin Sodium,Porcine 5,000 UNIT/ML VIAL 5000 UNIT SUBCUT (19:11)
[2023-06-14 19:44] VITALS: PULSE 82; RESP 16; TEMP 36.7; O2SAT 96
[2023-06-14 21:21] LABS: Glucose, Whole Blood 265 mg/dL (60-115)
[2023-06-14 21:22] VITALS: BMI 23.8
[2023-06-14] MEDS: Doxycycline Monohydrate 100 MG CAPSULE PO (21:48)
[2023-06-14] MEDS: Gabapentin 300 MG CAPSULE PO (21:48)
[2023-06-14] MEDS: Mirtazapine 15 MG TABLET PO (21:48)
[2023-06-14] MEDS: amLODIPine Besylate 5 MG TABLET PO (21:48)
[2023-06-14] MEDS: Insulin Glargine,Hum.rec.anlog 100 UNIT/ML 10 ML VIAL 80 UNIT SUBCUT (21:49)
[2023-06-14] MEDS: carvediloL 6.25 MG TABLET PO (21:49)
[2023-06-14] MEDS: 0.9 % Sodium Chloride Flush 3 ML SYRINGE IVFLUSH (21:49)
[2023-06-15] VITALS (8 sets, daily range): BP systolic 111–152; BP diastolic 53–67; PULSE 70–77; RESP 12–18; TEMP 36.1–36.7; O2SAT 94–96
--- NOTE | 2023-06-15 | ECG_ITS ---
Test Reason : QTc interval Blood Pressure : / mmHG Vent. Rate : 071 BPM Atrial Rate : 071 BPM P-R Int : 130 ms QRS Dur : 082 ms QT Int : 410 ms P-R-T Axes : 038 064 106 degrees QTc Int : 445 ms Poor data quality, interpretation may be adversely affected Normal sinus rhythm with sinus arrhythmia Normal ECG When compared with ECG of 12-JUN-2023 14:22, No significant change was found Referred By: Amparo Monzon Electronically Signed By:YENIFER AGUILAR MD
[2023-06-15] MEDS: Heparin Sodium,Porcine 5,000 UNIT/ML VIAL 5000 UNIT SUBCUT ×2 (05:08→16:49)
[2023-06-15] MEDS: Omeprazole 20 MG CAPSULE.DR PO (05:08)
[2023-06-15 06:09] LABS: Anion Gap 13 (12-20); Blood Urea Nitrogen 23 mg/dL (9-16); Calcium 9.2 mg/dL (8.4-10.2); Carbon Dioxide 24 mmol/L (22-29); Chloride 106 mmol/L (96-108); Creatinine Clr Calc Pharmacy 33.7; Estimated Glomerular Filt Rate 37; Glucose Random 124 mg/dL (60-115); Sodium 139 mmol/L (135-145)
[2023-06-15 06:24] LABS: Hematocrit 33.3 % (42.0-52.0); Hemoglobin 10.7 g/dl (14.0-18.0); Mean Corpuscular HGB Conc 32.1 g/dl (31.0-36.0); Mean Corpuscular Hemoglobin 26.7 pg (27.0-33.0); Mean Platelet Volume 9.9 fL (9.4-12.4); Platelet Count 361 X10*3/uL (160-400); Red Blood Count 4.01 X10*6/uL (4.60-5.80); Red Cell Distribution Width 14.7 % (11.0-16.0); White Blood Count 10.4 X10*3/uL (4.8-10.8)
[2023-06-15 07:36] LABS: Glucose, Whole Blood 129 mg/dL (60-115)
[2023-06-15] MEDS: Fluconazole 100 MG TABLET PO (08:12)
[2023-06-15] MEDS: Doxycycline Monohydrate 100 MG CAPSULE PO ×2 (08:12→20:41)
[2023-06-15] MEDS: carvediloL 6.25 MG TABLET PO ×2 (08:12→20:55)
[2023-06-15] MEDS: 0.9 % Sodium Chloride Flush 3 ML SYRINGE IVFLUSH ×3 (08:14→20:41)
--- NOTE | 2023-06-15 09:51 | MHC.CLN ---
NUTRITION CONSULT FOR NEED FOR TUBE FEEDING. VISITED WITH PATIENT AND DISCUSSED ON PHONE WITH PATIENT'S DAUGHTER. HAS BEEN EATING AT HOME AND NOT TAKING TUBE FEED FORMULA. APPEARS TO HAVE SIGNIFICANT WEIGHT LOSS X 4 MONTHS. RECOMMEND DO NOT GIVE TUBE FEEDING BASED ON CONVERSATIONS WITH PATIENT AND DAUGHTER.
[2023-06-15] MEDS: cefTRIAXone sodium 1 GM in 0.9 % Sodium Chloride 50 ML IV (11:12)
--- NOTE | 2023-06-15 11:13 | MHC.CM.PN ---
IMM DELIVERED PT IS AUSTRIAN SPEAKING AND LETHARGIC AT X'S. INFORMATION GLEANED FROM DAUGHTER AT BEDSIDE. PT LIVES WITH SPOUSE, USES W/C FOR MOBILITY. PT HAS VNA BUT DAUGHTER UNSURE OF AGENCY. +HCP ON FILE PCP RICARDA WALLACE AT [facility]. DP: PT WILL GO TO [facility] FOR STR VIA BLS. CM WILL CONTINUE TO FOLLOW FOR ANY CHANGE TO DC PLAN/NEEDS.
[2023-06-15 11:26] LABS: Glucose, Whole Blood 286 mg/dL (60-115)
[2023-06-15] MEDS: Insulin Lispro 100 UNIT/ML 3 ML VIAL SUBCUT ×3 (11:57→20:40)
--- NOTE | 2023-06-15 12:25 | HO.PM.IMPN ---
Subjective Subjective Date of Service: 06/15/23 Interval History: This history was taken in Bulgarian from the patient. Febrile to 100.4 @ 18:40 Denies any flank pain or urinary symptoms Review of Systems Review of Systems: Yes all other systems are reviewed and are negative Physical Exam Vital Signs: Vital Signs: Last Vital Signs Temp 98 F 06/15/23 07:32 Pulse 70 06/15/23 08:12 Resp 12 06/15/23 07:32 BP 130/58 L 06/15/23 08:12 Pulse Ox 94 06/15/23 07:32 O2 Del Method Room Air 06/15/23 07:32 BMI result Body Mass Index 23.8 Gen: in no acute distress HEENT: sclera anicteric, moist mucus membranes Neck: supple Lungs: clear to auscultation bilaterally Heart: regular rate and rhythm, no murmurs Abd: soft, non-tender, non-distended, Gtube in place : no CVA tenderness, no suprapubic tenderness Ext: no edema Skin: warm/well-perfused Neuro: alert and oriented x3, L hemiparesis Psych: appropriate affect Objective Data Active Medications Acetaminophen (Acetaminophen 325 Mg Tablet) 650 mg PO Q6H PRN PRN Reason: fever of mild pain Amlodipine Besylate (Amlodipine Besylate 5 Mg Tablet) 5 mg PO BEDTIME [facility]; Protocol Last Admin: 06/14/23 21:48 Dose: 5 mg Documented By: CHET Artificial Tears (Artificial Tears 15 Ml Drops) 1 drop EYE-BOTH BID PRN PRN Reason: Dry Eye(S) Carvedilol (Carvedilol 6.25 Mg Tablet) 6.25 mg PO BID [facility]; Protocol Last Admin: 06/15/23 08:12 Dose: 6.25 mg Documented By: PAVEL Doxycycline Monohydrate (Doxycycline Monohydrate 100 Mg Capsule) 100 mg PO BID [facility] Last Admin: 06/15/23 08:12 Dose: 100 mg Documented By: PAVEL Fluconazole (Fluconazole 100 Mg Tablet) 100 mg PO DAILY [facility] Last Admin: 06/15/23 08:12 Dose: 100 mg Documented By: PAVEL Gabapentin (Gabapentin 300 Mg Capsule) 300 mg PO BEDTIME [facility] Last Admin: 06/14/23 21:48 Dose: 300 mg Documented By: CHET Glucose (Glucose Gel 15 Gm Gel..Gram.) 15 gm PO Q15M PRN; Protocol PRN Reason: per Hypoglycemia Standing Ord. Heparin Sodium (Porcine) (Heparin Sodium,Porcine 5,000 Unit/Ml Vial) 5,000 unit SUBCUT Q12H [facility] Last Admin: 06/15/23 05:08 Dose: 5,000 unit Documented By: CHET Ceftriaxone Sodium 1 gm/ (Sodium Chloride) 50 mls @ 100 mls/hr IV Q24H [facility] Last Infusion: 06/15/23 11:42 Dose: Infused Documented By: PAVEL Dextrose (D10) 250 mls @ 750 mls/hr IV Q15M PRN; Protocol PRN Reason: per Hypoglycemia Standing Ord. Insulin Glargine (Insulin Glargine,Hum.Rec.Anlog 100 Unit/Ml 10 Ml Vial) 80 unit SUBCUT BEDTIME [facility] Last Admin: 06/14/23 21:49 Dose: 80 unit Documented By: CHET Insulin Human Lispro (Insulin Lispro 100 Unit/Ml 3 Ml Vial) 0 unit SUBCUT QIDACHS [facility]; Protocol Last Admin: 06/15/23 11:57 Dose: 6 unit Documented By: PAVEL Mirtazapine (Mirtazapine 15 Mg Tablet) 15 mg PO BEDTIME [facility] Last Admin: 06/14/23 21:48 Dose: 15 mg Documented By: CHET Omeprazole (Omeprazole 20 Mg Capsule.Dr) 20 mg PO DAILY@0630 [facility] Last Admin: 06/15/23 05:08 Dose: 20 mg Documented By: CHET Sodium Chloride (0.9 % Sodium Chloride Flush 3 Ml Syringe) 3 ml IVFLUSH QSHIFT [facility] Last Admin: 06/15/23 08:14 Dose: 3 ml Documented By: PAVEL Tramadol HCl (Tramadol Hcl 50 Mg Tablet) 25 mg PO DAILY PRN PRN Reason: severe pain Labs 06/15/23 05:36 06/15/23 05:36 Labs: Laboratory Results - last 24 hr 06/14/23 06/14/23 06/14/23 14:34 18:33 21:16 MCV 82.3 MCH 26.5 L MCHC 32.2 RDW 14.6 Plt Count 338 MPV 9.8 Immature Gran % (Auto) 0.3 Neut % (Auto) 77.9 H Lymph % (Auto) 14.1 L [place] % (Auto) 5.4 Eos % (Auto) 2.1 Baso % (Auto) 0.2 Lymph # (Auto) 1.8 [place] # (Auto) 0.7 Eos # (Auto) 0.3 Baso # (Auto) 0.0 Abs Immat Gran (auto) 0.04 H Absolute Neuts (auto) 9.9 H Absolute Nucleated RBC 0.000 Nucleated RBC % (auto) 0.0 Anion Gap 13 Estim Creat Clear Calc 28.8 Estimated GFR 31 POC Glucose 330 H 265 H Random Glucose 336 H Calcium 9.4 Total Bilirubin 0.4 AST 12 ALT 12 Alkaline Phosphatase 114 Total Protein 8.2 H Albumin 3.2 L 06/15/23 06/15/23 06/15/23 05:36 07:30 11:19 MCV 83.0 MCH 26.7 L MCHC 32.1 RDW 14.7 Plt Count 361 MPV 9.9 Immature Gran % (Auto) Neut % (Auto) Lymph % (Auto) [place] % (Auto) Eos % (Auto) Baso % (Auto) Lymph # (Auto) [place] # (Auto) Eos # (Auto) Baso # (Auto) Abs Immat Gran (auto) Absolute Neuts (auto) Absolute Nucleated RBC 0.000 Nucleated RBC % (auto) 0.0 Anion Gap 13 Estim Creat Clear Calc 33.7 Estimated GFR 37 POC Glucose 129 H 286 H Random Glucose 124 H Calcium 9.2 Total Bilirubin AST ALT Alkaline Phosphatase Total Protein Albumin Microbiology Microbiology Results: Microbiology 06/13/23 09:21 Blood Culture - Preliminary Blood - Venous No growth after 48 hours. 06/13/23 09:08 Blood Culture - Preliminary Blood - Venous No growth after 48 hours. 06/12/23 17:54 Urine Culture - Final Urine clean catch - Urine turk top Lisbeth albicans Assessment and Plan (1) Fever: Status: Acute Plan d2 77yo M with HTN, HLD, CKD3, DM2, nephrolithiasis, CVA with L hemiparesis presenting after mechanical fall and was awaiting rehab placement but then developed fever, likely Lisbeth UTI febrile UTI, Lisbeth albicans - ceftriaxone 06/12-, doxycycline 06/13-, fluconazole 06/13-. Follow BCx/UCx, consult ID.Hold empagliflozin given association with UTIs [place]/CKD3 - Cr improved with holding furosemide HTN - amlodipine, carvedilol; hold furosemide for now DM2 - basal-bolus insulin tube feeds - [employer] + Nutrition evaluations. Pt unsure why his TFs were restarted in the ED. He states he has been eating normally PO at home and has been off TFs for 3 mo. MBSS and if no aspiration, would consider removing G-tube entirely. neuropathy - gabapentin mood disorder - mirtazapine VTE prophylaxis - UFH dispo - STR In my clinical judgment, the patient requires continued inpatient hospitalization for the following reasons: fever, ID consultation Total time managing care of this patient today: 35 minutes. Quality Stroke Does the patient have a stroke diagnosis?: No VTE Prior VTE?: No VTE Risk Level:: Medical - moderate - high VTE Device Contraindication: N/A - Device Ordered VTE Drug Contraindication: N/A - Med Ordered
--- NOTE | 2023-06-15 16:10 | MHC.SL.IMP ---
Date of Plan of Treatment: 06/15/23 Onset of Symptoms/Illness: 04/16/23 Date Treatment Started: 06/15/23 Admitting Diagnosis: Fever Primary Speech & Language Diagnosis: R13.12 Oropharyngeal Phase Dysphagia Reason for Today's Visit: 49111 Modified Barium Swallow Study Comments: Patient has a G-tube. Pre-evaluation Dietary Consistencies: Regular Pre-evaluation Liquid Consistency: Thin Pre-evaluation Medication Administration: Whole with Liquid Medical History: Modified Barium Swallow Study Fluoroscopic Evaluation of Swallowing Function CPT Code 52355 Evaluation Year: 2023 Reason for Study: Pt w/ G-tube reporting he is eating PO at home. Referring Physician: Amparo Monzon MD Evaluating Clinician: Aida Andrews MA, CCC-LEGISLATIVE CORRESPONDENT Study Number: 1 Patient Name: Hector Jaramillo Status: Inpatient, Stretcher Age: 77 Gender: Male Medical History Medical History NSTEMI (non-ST elevated myocardial infarction) Sepsis Pneumonia Type 2 diabetes mellitus with diabetic polyneuropathy Diverticulosis Erectile dysfunction BPH (benign prostatic hyperplasia) Carpal tunnel syndrome Cataracts, bilateral GERD (gastroesophageal reflux disease) Kidney stones Type 2 diabetes mellitus with chronic kidney disease Chronic kidney disease, stage 3 Type 2 diabetes mellitus with hyperglycemia Essential hypertension Hyperlipidemia LDL goal <70 Surgical History Hx of colonoscopy Hx of lithotripsy Current (pre-evaluation) Intake/Diet: Route: PO Diet Grade: Regular Liquid Consistencies: Thin Pre-Study Functional Oral Intake Scale (FOIS): 7- Total oral intake with no restrictions Pain: None reported at time of study SUBJECTIVE: Patient is a 77 year old male brought to the ED after sustaining a fall. He was awaiting a rehab placement when he then developed a fever and is now admitted to [facility], with infection likely urinary source, possibly candiduria. ED staff was documenting that patient did not want to eat or drink, therefore G-tube feeds were started for him. Patient then stating he has been eating normally at home, does not use his G-tube, and was unsure why tube feeds were started here. His CXR showed no acute abnormality. Past medical history includes PNA, diverticulosis, GERD, cataracts, CKD, CVA with left hemiparesis, and G-tube placed after stroke. LEGISLATIVE CORRESPONDENT was unable to reach staff at [facility] or [facility] for records. Oral Motor Exam Facial Symmetry: Symmetrical Mouth Occlusion: Normal Oral-Facial Teeth Characteristics: Intact/Normal Oral-Facial Lip Pucker Description: Normal Oral-Facial Smile (Lips) Description: Normal Oral-Facial Puff Cheeks Description: Normal Tongue Size: Normal Tongue Excursion Description: Normal Tongue Range of Movement Description: Normal Tongue Speed of Movement Description: Reduced Tongue Strength of Movement (against opposing pressure): Normal Tongue Movement Characteristics: Normal/Absent Food and Liquid Trials: Oral Impairment: Lip Closure: Did not test Oral Impairment: Tongue Control During Bolus Hold: Did not test Oral Impairment: Bolus Preparation/Mastication: 1=Slow prolonged chewing/mashing with complete re-collection Oral Impairment: Bolus Transport/Lingual Motion: 2=Slowed tongue motion Oral Impairment: Oral Residue: 2=Residue collection on oral structures Oral Impairment:Initiation of Pharyngeal Swallow: 2=Bolus head at posterior laryngeal surface of epiglottis Pharyngeal Impairment: Soft Palate Elevation: 0=No bolus between soft palate (SP)/pharyngeal wall (PW) Pharyngeal Impairment: Laryngeal Elevation: 1=Partial thyroid cartilage/arytenoids to epiglottic petiole movement Pharyngeal Impairment: Anterior Hyoid Excursion: 1=Partial anterior movement Pharyngeal Impairment: Epiglottic Movement: 0=Complete inversion Pharyngeal Impairment: Laryngeal Vestibular Closure:: 0=Complete: no air/contrast in laryngeal vestibule Pharyngeal Impairment: Pharyngeal Stripping Wave: 0=Present: complete Pharyngeal Impairment: Pharyngeal Contraction: Did not test Pharyngeal Impairment: Pharyngoesophageal Segment Openin=Partial distention/partial duration: partial obstruction of flow Pharyngeal Impairment: Tongue Base (TB) Retraction: 1=Trace column of contrast/air between TB and posterior PW Pharyngeal Impairment: Pharyngeal Residue: 2=Collection of residue within or on pharyngeal structures Pharyngeal Impairment: Esophageal Clearance Upright Position: Did not test Impressions and Recommendations Clinical Observations: OBJECTIVE: Time-out: performed at 15:00 Evaluation Start: 14:30; Stop: 14:35 Patient Positioning: Seated 70-90 degrees Viewing Planes: LATERAL ONLY Contrast: MBSImP? Standardized Protocol using commercially prepared, standardized Barium viscosities, including: Varibar? THIN LIQUID (40% w/v, <15 cps) , 1/2 Shortbread Cookie (1 x1 x.25 ) [facility] ID: [id number] [facility] Results: Lip closure for intraoral bolus containment could not be assessed due to logistical reasons not related to physiologic impairment. Tongue control during bolus hold could not be assessed due to logistical reasons not related to physiologic impairment. Bolus preparation and mastication resulted in slow, prolonged chewing/mashing but with complete re-collection. Bolus transport/lingual motion was with slowed tongue motion. Oral residue was a collection on oral structures. Initiation of the pharyngeal swallow occurred as the bolus head was at the posterior laryngeal surface of the epiglottis. Soft palate elevation resulted in no bolus between the soft palate and the pharyngeal wall. Laryngeal elevation was decreased, with partial superior movement of the thyroid cartilage/partial approximation of the arytenoids to the epiglottic petiole. Anterior hyoid excursion demonstrated partial anterior movement. Epiglottic movement resulted in complete inversion. Laryngeal vestibular closure was complete, as indicated by no air or contrast within the laryngeal vestibule at the height of the swallow. Pharyngeal stripping wave was present and complete. Pharyngeal contraction could not be determined due to logistical reasons not related to physiologic impairment. Pharyngoesophageal segment opening demonstrated partial distension/partial duration, with partial obstruction of bolus flow. Tongue base retraction allowed a trace column of contrast or air between the retracted tongue base and the posterior pharyngeal wall. Pharyngeal residue was a collection of residue within or on pharyngeal structures. Esophageal clearance in the upright position could not be assessed due to logistical reasons not related to physiologic impairment. Oral Impairment Score: 7 (absence of score, component 1component 2) Pharyngeal Impairment Score: 5 (absence of score, component 13) Esophageal Impairment Score: --- (absence of score, component 17) Laryngeal Penetration and Aspiration: Neither penetration nor aspiration was observed in today's study with Cookie, Puree, Thin. ASSESSMENT: Clinician Assessment: This exam was performed by the speech pathologist and the radiologist. Patient was seated upright in a stretcher for lateral view. He was able to feed himself and trialed thin, puree, and regular solid consistencies. Unable to visualize labial seal with imaging. Clinically, patient did not appear to have any spillage beyond the emelia border. Posterior lingual transport was mildly delayed in initiation with slowed movement. Mastication was also slowed and prolonged, characterized by piece meal deglutition with patient chewing bolus, swallowing partial bolus, continuing to chew remaining bolus, before swallowing a second time to clear the oral cavity. Patient displayed mild residue coating the tongue and palate post-swallow, which mostly cleared with subsequent swallows. Pharyngeal swallow trigger initiated when the bolus head reached the posterior laryngeal surface of the epiglottis. No nasopharyngeal reflux. Partial laryngeal elevation. Complete epiglottic inversion and complete laryngeal vestibular closure with good airway protection. No evidence of aspiration or penetration during this exam. There was mild pooling in the valleculae and pyriforms, as well as some coating of the tongue base and posterior pharyngeal wall. Patient was able to reduce residuals with dry swallows and liquid wash. Liquid Intake Recommendation: Thin Liquid Intake Strategies: Small Sips Dietary Recommendations: Regular Medication Administration: Whole with Liquid Please contact the pharmacy regarding appropriate crushable or liquid drug formulations that are available whenever modified delivery is recommended. Compensatory Strategies Recommended: Sitting Upright (90 deg), Double Swallow, Small Bites and Sips, Alternate Liquids/Solids, Rate of Ingestion Change Supervision during eating and or drinking: Total Supervision (1:1) Recommended Treatments: Compens. Strategy Educat. Recommendation for Speech Therapy: Inpatient Speech Therapy Text Comment: Intake Recommendations: Route: PO Diet Grade: Regular Liquid Consistencies: Thin Post-Study Functional Oral Intake Scale (FOIS): 7- Total oral intake with no restrictions Patient presents with mild oropharyngeal dysphagia, characterized by slowed mastication, delayed AP transport, and incomplete laryngeal elevation. There was mild residue on the tongue with pooling in the valleculae and pyriforms as well. Patient was able to reduce residuals with dry swallows and liquid wash. No evidence of aspiration or penetration during this exam. Recommend REGULAR texture diet and THIN liquids, with pills administered WHOLE in LIQUID or PUREE. The following strategies are recommended to maximize safety and promote oral and pharyngeal clearance: -Sit upright at 90 degrees for PO intake -Take small bites -Chew food well and clear oral cavity before taking more bites -Alternate bites of food with sips of liquid -Dry swallow between bites and sips -Take small sips, avoid taking consecutive sips Therapy Recommendations: These strategies were discussed with the patient after the exam. Therapy will be continued- LEGISLATIVE CORRESPONDENT will f/u 1-2 times during inpatient stay for further education. Group Home Goals: ? The patient will tolerate the least restrictive diet with a safe/efficient swallow to maintain adequate nutrition and hydration. ? The patient and/or family will participate in further education for swallowing goals. Short Term Goals: ? Diet - The patient will tolerate a regular diet with thin liquids without signs or symptoms of penetration/aspiration 100% of the time. - The patient will participate in therapeutic PO trials with the LEGISLATIVE CORRESPONDENT. ? Guidelines - The patient will comply with/recall the following guidelines/strategies 100% of the time with minimal cuing: Liquid Wash, Additional Swallow(s) per Bolus. ? Education - The patient, family, caregiver will verbalize/demonstrate understanding of the results of this evaluation, the above recommendations, and the swallowing guidelines. Frequency/Duration: 1-2 f/u Date Range for Service Requested: Timeline to reassess: Clinician - Supplemental, Miscellaneous Communication: It is important to note MBSS objective studies are snapshots in time and Patient function might vary with factors such as time of day or concomitant medical conditions. For this reason, the final treatment plan for this patient should rest with their medical care team. Additional recommendations should be considered with the totality of the Patient in mind. Thank for the opportunity to participate in the care of this patient. If you have any questions about the content of this report, please contact the [facility] at [facility]. Education: Education regarding findings from today's study and plans for therapy were provided to Patient only through Verbal Instruction. Understanding was expressed by the Patient only. Feed Research Aide Clinician/Clinical Fellow: No Supervisory Statement: N/A Speech Language Pathologist: Aida Andrews M.A., [facility]-LEGISLATIVE CORRESPONDENT
[2023-06-15 16:11] LABS: Glucose, Whole Blood 262 mg/dL (60-115)
--- NOTE | 2023-06-15 16:33 | W.PM.IDCN ---
History of Present Illness Data of Consult Service Date: 06/15/23 Requesting physician: Amparo Monzon / [facility] Primary Care Provider: Natacha Olivas MD HPI Reason for consult: fever of unknown origin He presents with weakness and temperature 102.6. There is no evidence of tick exposure. Urine only shows jesus. Review of Systems Review of Systems: Yes all other systems are reviewed and are negative PMFSH Past Medical History Medical History NSTEMI (non-ST elevated myocardial infarction) Sepsis Pneumonia Type 2 diabetes mellitus with diabetic polyneuropathy Diverticulosis Erectile dysfunction BPH (benign prostatic hyperplasia) Carpal tunnel syndrome Cataracts, bilateral GERD (gastroesophageal reflux disease) Kidney stones Type 2 diabetes mellitus with chronic kidney disease Chronic kidney disease, stage 3 Type 2 diabetes mellitus with hyperglycemia Essential hypertension Hyperlipidemia LDL goal <70 Family History Family History Father No problems noted. Mother Diabetes mellitus Brother Diabetes mellitus Sister Diabetes mellitus Family history: reviewed and not pertinent Surgical History Surgical History Hx of colonoscopy Hx of lithotripsy Social History Social History Household Members: Family Housing: Apartment Do you presently have visiting nurse or other home services: Yes (monthly) Alcohol intake: never Patient Tobacco Use Status: Never used Tobacco Advance Directives Date on File: 04/11/23 service: No Current occupational status: retired Meds Allergies Allergy/AdvReac Type Severity Reaction Status Date / Time No Known Allergies Allergy Mild N/A Verified 06/12/23 13:32 Active Medications: Current Medications Acetaminophen (Acetaminophen 325 Mg Tablet) 650 mg PO Q6H PRN PRN Reason: fever of mild pain Amlodipine Besylate (Amlodipine Besylate 5 Mg Tablet) 5 mg PO BEDTIME GLENN; Protocol Last Admin: 06/14/23 21:48 Dose: 5 mg Artificial Tears (Artificial Tears 15 Ml Drops) 1 drop EYE-BOTH BID PRN PRN Reason: Dry Eye(S) Carvedilol (Carvedilol 6.25 Mg Tablet) 6.25 mg PO BID GLENN; Protocol Last Admin: 06/15/23 08:12 Dose: 6.25 mg Doxycycline Monohydrate (Doxycycline Monohydrate 100 Mg Capsule) 100 mg PO BID [facility] Last Admin: 06/15/23 08:12 Dose: 100 mg Fluconazole (Fluconazole 100 Mg Tablet) 100 mg PO DAILY [facility] Last Admin: 06/15/23 08:12 Dose: 100 mg Gabapentin (Gabapentin 300 Mg Capsule) 300 mg PO BEDTIME [facility] Last Admin: 06/14/23 21:48 Dose: 300 mg Glucose (Glucose Gel 15 Gm Gel..Gram.) 15 gm PO Q15M PRN; Protocol PRN Reason: per Hypoglycemia Standing Ord. Heparin Sodium (Porcine) (Heparin Sodium,Porcine 5,000 Unit/Ml Vial) 5,000 unit SUBCUT Q12H [facility] Last Admin: 06/15/23 05:08 Dose: 5,000 unit Ceftriaxone Sodium 1 gm/ (Sodium Chloride) 50 mls @ 100 mls/hr IV Q24H [facility] Last Infusion: 06/15/23 11:42 Dose: Infused Dextrose (D10) 250 mls @ 750 mls/hr IV Q15M PRN; Protocol PRN Reason: per Hypoglycemia Standing Ord. Insulin Glargine (Insulin Glargine,Hum.Rec.Anlog 100 Unit/Ml 10 Ml Vial) 80 unit SUBCUT BEDTIME [facility] Last Admin: 06/14/23 21:49 Dose: 80 unit Insulin Human Lispro (Insulin Lispro 100 Unit/Ml 3 Ml Vial) 0 unit SUBCUT QIDACHS [facility]; Protocol Last Admin: 06/15/23 11:57 Dose: 6 unit Mirtazapine (Mirtazapine 15 Mg Tablet) 15 mg PO BEDTIME [facility] Last Admin: 06/14/23 21:48 Dose: 15 mg Omeprazole (Omeprazole 20 Mg Capsule.Dr) 20 mg PO DAILY@0630 [facility] Last Admin: 06/15/23 05:08 Dose: 20 mg Sodium Chloride (0.9 % Sodium Chloride Flush 3 Ml Syringe) 3 ml IVFLUSH QSHIFT [facility] Last Admin: 06/15/23 08:14 Dose: 3 ml Tramadol HCl (Tramadol Hcl 50 Mg Tablet) 25 mg PO DAILY PRN PRN Reason: severe pain Home Medications ?Medication ?Instructions ?Recorded ?Confirmed ?Last Taken ?Type peg [id number] 1 1 drp ophthalmic (eye) BID PRN Dry 11/01/21 06/14/23 10/31/21 History %-0.2 %-0.2 % eye drops (Dry Eye Eye(S) Relief) furosemide 20 mg tablet 20 mg PO Q48H 03/29/22 06/14/23 Unknown History pen needle, diabetic 32 gauge x #50 ea 03/29/22 11/08/22 Unknown History (Pentips) amlodipine 5 mg tablet (Norvasc) 5 mg PO BEDTIME 04/10/23 06/14/23 Unknown History gabapentin 300 mg capsule 300 mg PO BEDTIME 04/10/23 06/14/23 Unknown History tramadol 50 mg tablet 25 mg PO DAILY PRN severe pain 04/10/23 06/14/23 Unknown History empagliflozin 25 mg tablet 25 mg PO QAM 04/11/23 06/14/23 Unknown History (Jardiance) insulin glargine U-300 conc 300 80 unit subcut BEDTIME 06/14/23 06/14/23 Unknown History unit/mL (1.5 mL) subcutaneous pen (Toujeo SoloStar U-300 Insulin) insulin lispro 100 unit/mL 15 unit subcut TIDAC 06/14/23 06/14/23 3 Weeks Ago History subcutaneous pen ~05/23/23 15 unit mirtazapine 15 mg disintegrating 15 mg PO BEDTIME 06/14/23 06/14/23 Unknown History tablet Physical Exam Vital Signs: Vital Signs: Last Vital Signs Temp 97.2 F 06/15/23 15:21 Pulse 72 06/15/23 16:03 Resp 18 06/15/23 15:21 BP 135/62 06/15/23 16:03 Pulse Ox 96 06/15/23 16:03 O2 Del Method Room Air 06/15/23 15:21 BMI result Body Mass Index 23.8 Results Labs 06/15/23 05:36 06/15/23 05:36 Labs: Short CBC 06/15/23 Range/Units 05:36 WBC 10.4 (4.8-10.8) X10*3/uL Hgb 10.7 L (14.0-18.0) g/dl Hct 33.3 L (42.0-52.0) % Plt Count 361 (160-400) X10*3/uL BMP 06/15/23 05:36 Sodium 139 Potassium 4.0 Chloride 106 Carbon Dioxide 24 BUN 23 H Creatinine 1.80 H Calcium 9.2 Microbiology Microbiology Results: Microbiology 06/13/23 09:21 Blood - Venous Blood Culture - Preliminary No growth after 48 hours. 06/13/23 09:08 Blood - Venous Blood Culture - Preliminary No growth after 48 hours. 06/12/23 17:54 Urine clean catch - Urine turk top Urine Culture - Final Jesus albicans Assessment and Plan (1) Fever: Status: Acute Plan There is possible anaplasmosis There is less likely fungal UTI. It is possible fever due to viral syndrome as well. Would await tick borne studies. Otherwise po Doxycycline 100 mg bid 10-14 d Stop Ceftriaxone and Diflucan if negative blood culture.
[2023-06-15 20:29] LABS: Glucose, Whole Blood 295 mg/dL (60-115)
[2023-06-15] MEDS: Insulin Glargine,Hum.rec.anlog 100 UNIT/ML 10 ML VIAL 80 UNIT SUBCUT (20:40)
[2023-06-15] MEDS: Mirtazapine 15 MG TABLET PO (20:41)
[2023-06-15] MEDS: Gabapentin 300 MG CAPSULE PO (20:41)
[2023-06-15] MEDS: amLODIPine Besylate 5 MG TABLET PO (20:56)
[2023-06-16] VITALS (9 sets, daily range): BP systolic 122–139; BP diastolic 57–65; PULSE 64–78; RESP 16–18; TEMP 36.2–36.7; O2SAT 94–97
[2023-06-16 02:19] LABS: Lyme Abs Screen <0.90 index
[2023-06-16] MEDS: Omeprazole 20 MG CAPSULE.DR PO (05:28)
[2023-06-16] MEDS: Heparin Sodium,Porcine 5,000 UNIT/ML VIAL 5000 UNIT SUBCUT ×2 (05:28→16:49)
[2023-06-16 07:47] LABS: Glucose, Whole Blood 86 mg/dL (60-115)
[2023-06-16] MEDS: carvediloL 6.25 MG TABLET PO ×2 (08:35→21:13)
[2023-06-16] MEDS: Doxycycline Monohydrate 100 MG CAPSULE PO ×2 (08:36→21:15)
[2023-06-16] MEDS: Fluconazole 100 MG TABLET PO (08:36)
[2023-06-16] MEDS: 0.9 % Sodium Chloride Flush 3 ML SYRINGE IVFLUSH ×3 (08:50→21:14)
--- NOTE | 2023-06-16 08:51 | PC.NURSE ---
Dr. Mauro at bedside to remove g-tube, patient tolerated well
--- NOTE | 2023-06-16 09:59 | P.CONGS_ITS ---
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 He underwent PEG tube placement outside institution following the CVA. Patient now is able to eat without difficulty and no longer requires the PEG tube. Surgical consultation requested for removal of PEG tube. Patient is admitted to the hospitalist service after tripping on his walker injuring his left toe. Review of Systems 2 Review of Systems: Yes Unobtainable due to mental condition PMFSH Past Medical History Medical History NSTEMI (non-ST elevated myocardial infarction) Sepsis Pneumonia Type 2 diabetes mellitus with diabetic polyneuropathy Diverticulosis Erectile dysfunction BPH (benign prostatic hyperplasia) Carpal tunnel syndrome Cataracts, bilateral GERD (gastroesophageal reflux disease) Kidney stones Type 2 diabetes mellitus with chronic kidney disease Chronic kidney disease, stage 3 Type 2 diabetes mellitus with hyperglycemia Essential hypertension Hyperlipidemia LDL goal <70 Family History Family History Father No problems noted. Mother Diabetes mellitus Brother Diabetes mellitus Sister Diabetes mellitus Family history: reviewed and not pertinent Surgical History Surgical History Hx of colonoscopy Hx of lithotripsy Social History Social History Household Members: Family Housing: Apartment Do you presently have visiting nurse or other home services: Yes (monthly) Alcohol intake: never Patient Tobacco Use Status: Never used Tobacco Advance Directives Date on File: 04/11/23 service: No Current occupational status: retired Meds Allergies Allergy/AdvReac Type Severity Reaction Status Date / Time No Known Allergies Allergy Mild N/A Verified 06/12/23 13:32 Active Medications: Current Medications Acetaminophen (Acetaminophen 325 Mg Tablet) 650 mg PO Q6H PRN PRN Reason: fever of mild pain Amlodipine Besylate (Amlodipine Besylate 5 Mg Tablet) 5 mg PO BEDTIME [facility]; Protocol Last Admin: 06/15/23 20:56 Dose: 5 mg Artificial Tears (Artificial Tears 15 Ml Drops) 1 drop EYE-BOTH BID PRN PRN Reason: Dry Eye(S) Carvedilol (Carvedilol 6.25 Mg Tablet) 6.25 mg PO BID [facility]; Protocol Last Admin: 06/16/23 08:35 Dose: 6.25 mg Doxycycline Monohydrate (Doxycycline Monohydrate 100 Mg Capsule) 100 mg PO BID [facility] Last Admin: 06/16/23 08:36 Dose: 100 mg Fluconazole (Fluconazole 100 Mg Tablet) 100 mg PO DAILY [facility] Last Admin: 06/16/23 08:36 Dose: 100 mg Gabapentin (Gabapentin 300 Mg Capsule) 300 mg PO BEDTIME [facility] Last Admin: 06/15/23 20:41 Dose: 300 mg Glucose (Glucose Gel 15 Gm Gel..Gram.) 15 gm PO Q15M PRN; Protocol PRN Reason: per Hypoglycemia Standing Ord. Heparin Sodium (Porcine) (Heparin Sodium,Porcine 5,000 Unit/Ml Vial) 5,000 unit SUBCUT Q12H [facility] Last Admin: 06/16/23 05:28 Dose: 5,000 unit Dextrose (D10) 250 mls @ 750 mls/hr IV Q15M PRN; Protocol PRN Reason: per Hypoglycemia Standing Ord. Insulin Glargine (Insulin Glargine,Hum.Rec.Anlog 100 Unit/Ml 10 Ml Vial) 80 unit SUBCUT BEDTIME [facility] Last Admin: 06/15/23 20:40 Dose: 80 unit Insulin Human Lispro (Insulin Lispro 100 Unit/Ml 3 Ml Vial) 0 unit SUBCUT QIDACHS [facility]; Protocol Last Admin: 06/16/23 07:55 Dose: Not Given Mirtazapine (Mirtazapine 15 Mg Tablet) 15 mg PO BEDTIME [facility] Last Admin: 06/15/23 20:41 Dose: 15 mg Omeprazole (Omeprazole 20 Mg Capsule.Dr) 20 mg PO DAILY@0630 [facility] Last Admin: 06/16/23 05:28 Dose: 20 mg Sodium Chloride (0.9 % Sodium Chloride Flush 3 Ml Syringe) 3 ml IVFLUSH QSHIFT [facility] Last Admin: 06/16/23 08:50 Dose: 3 ml Tramadol HCl (Tramadol Hcl 50 Mg Tablet) 25 mg PO DAILY PRN PRN Reason: severe pain Home Medications ?Medication ?Instructions ?Recorded ?Confirmed ?Last Taken ?Type peg [id number] 1 1 drp ophthalmic (eye) BID PRN Dry 11/01/21 06/14/23 10/31/21 History %-0.2 %-0.2 % eye drops (Dry Eye Eye(S) Relief) furosemide 20 mg tablet 20 mg PO Q48H 03/29/22 06/14/23 Unknown History pen needle, diabetic 32 gauge x #50 ea 03/29/22 11/08/22 Unknown History (P[place]ips) amlodipine 5 mg tablet (Norvasc) 5 mg PO BEDTIME 04/10/23 06/14/23 Unknown History gabapentin 300 mg capsule 300 mg PO BEDTIME 04/10/23 06/14/23 Unknown History tramadol 50 mg tablet 25 mg PO DAILY PRN severe pain 04/10/23 06/14/23 Unknown History empagliflozin 25 mg tablet 25 mg PO QAM 04/11/23 06/14/23 Unknown History (Jardiance) insulin glargine U-300 conc 300 80 unit subcut BEDTIME 06/14/23 06/14/23 Unknown History unit/mL (1.5 mL) subcutaneous pen (Toujeo SoloStar U-300 Insulin) insulin lispro 100 unit/mL 15 unit subcut TIDAC 06/14/23 06/14/23 3 Weeks Ago History subcutaneous pen ~05/23/23 15 unit mirtazapine 15 mg disintegrating 15 mg PO BEDTIME 06/14/23 06/14/23 Unknown History tablet Physical Exam 2 Vital Signs: Vital Signs: Last Vital Signs Temp 97.2 F 06/16/23 07:28 Pulse 64 06/16/23 08:35 Resp 18 06/16/23 07:28 BP 134/65 06/16/23 08:35 Pulse Ox 95 06/16/23 07:28 O2 Del Method Room Air 06/16/23 07:28 BMI result Body Mass Index 23.8 Const: General: comfortable and no acute distress Nutritional Appearance: w ell nourished Resp: Effort & Inspection: normal respiratory effort, no audible wheezes, no cough and no respiratory distress GI: Other: G-tube in place, no surrounding erythema or edema Inspection: Yes normal to inspection Palpation (GI): Soft to palpation, nontender, no guarding and not rigid Skin: General skin exam: no rashes or lesions noted Extrem: General: Yes no clubbing, cyanosis or edema Results Labs 06/15/23 05:36 06/15/23 05:36 Labs: Abnormal lab results 06/15/23 06/15/23 06/15/23 Range/Units 11:19 16:03 20:22 POC Glucose 286 H 262 H 295 H (60-115) mg/dL Urine 06/12/23 Range/Units 17:13 Urine Color Yellow Urine Appearance Cloudy Urine pH 5.5 (5.0-9.0) Ur Specific Morgan 1.020 (1.005-1.025) Urine Protein 30 (1+) H (Neg-Trace) mg/dL Urine Glucose (UA) >=1000 H (Negative) mg/dL All other labs normal. Assessment and Plan (1) Sprain of toe, great, left: Qualifiers: Encounter type: initial encounter Qualified Code(s): S93.502A - Unspecified sprain of left great toe, initial encounter Status: Acute (2) Gastrostomy in place: Status: Acute Plan Patient admitted for fever. Surgical consultation requested for removal of gastrostomy tube. At the bedside of the gastrostomy tube was easily removed and a sterile dressing applied. The patient tolerated the G-tube removal well with no apparent side effects. Site may leak for several days until gastrostomy opening seals. Please re-consult for any new concerns. Procedures Date of Service Date of Service: 06/16/23
--- NOTE | 2023-06-16 10:57 | HO.PM.IMPN ---
Subjective Subjective Date of Service: 06/16/23 Interval History: This history was taken in Nepali from the patient. No further fever No known tick exposure G-tube removed by surgeon at bedside Review of Systems Review of Systems: Yes all other systems are reviewed and are negative Physical Exam Vital Signs: Vital Signs: Last Vital Signs Temp 97.2 F 06/16/23 07:28 Pulse 64 06/16/23 08:35 Resp 18 06/16/23 07:28 BP 134/65 06/16/23 08:35 Pulse Ox 95 06/16/23 07:28 O2 Del Method Room Air 06/16/23 07:28 BMI result Body Mass Index 23.8 Gen: in no acute distress HEENT: sclera anicteric, moist mucus membranes Neck: supple Lungs: clear to auscultation bilaterally Heart: regular rate and rhythm, no murmurs Abd: soft, non-tender, non-distended, Gtube in place : no CVA tenderness, no suprapubic tenderness Ext: no edema Skin: warm/well-perfused Neuro: alert and oriented x3, L hemiparesis Psych: appropriate affect Objective Data Active Medications Acetaminophen (Acetaminophen 325 Mg Tablet) 650 mg PO Q6H PRN PRN Reason: fever of mild pain Amlodipine Besylate (Amlodipine Besylate 5 Mg Tablet) 5 mg PO BEDTIME [facility]; Protocol Last Admin: 06/15/23 20:56 Dose: 5 mg Documented By: ODALIS Artificial Tears (Artificial Tears 15 Ml Drops) 1 drop EYE-BOTH BID PRN PRN Reason: Dry Eye(S) Carvedilol (Carvedilol 6.25 Mg Tablet) 6.25 mg PO BID [facility]; Protocol Last Admin: 06/16/23 08:35 Dose: 6.25 mg Documented By: MONSTER Doxycycline Monohydrate (Doxycycline Monohydrate 100 Mg Capsule) 100 mg PO BID [facility] Last Admin: 06/16/23 08:36 Dose: 100 mg Documented By: MONSTER Fluconazole (Fluconazole 100 Mg Tablet) 100 mg PO DAILY [facility] Last Admin: 06/16/23 08:36 Dose: 100 mg Documented By: MONSTER Gabapentin (Gabapentin 300 Mg Capsule) 300 mg PO BEDTIME [facility] Last Admin: 06/15/23 20:41 Dose: 300 mg Documented By: ODALIS Glucose (Glucose Gel 15 Gm Gel..Gram.) 15 gm PO Q15M PRN; Protocol PRN Reason: per Hypoglycemia Standing Ord. Heparin Sodium (Porcine) (Heparin Sodium,Porcine 5,000 Unit/Ml Vial) 5,000 unit SUBCUT Q12H [facility] Last Admin: 06/16/23 05:28 Dose: 5,000 unit Documented By: ODALIS Dextrose (D10) 250 mls @ 750 mls/hr IV Q15M PRN; Protocol PRN Reason: per Hypoglycemia Standing Ord. Insulin Glargine (Insulin Glargine,Hum.Rec.Anlog 100 Unit/Ml 10 Ml Vial) 80 unit SUBCUT BEDTIME [facility] Last Admin: 06/15/23 20:40 Dose: 80 unit Documented By: ODALIS Insulin Human Lispro (Insulin Lispro 100 Unit/Ml 3 Ml Vial) 0 unit SUBCUT QIDACHS [facility]; Protocol Last Admin: 06/16/23 07:55 Dose: Not Given Documented By: ARLETTE-JULEEJ Non-Admin Reason: No Insulin Coverage Mirtazapine (Mirtazapine 15 Mg Tablet) 15 mg PO BEDTIME [facility] Last Admin: 06/15/23 20:41 Dose: 15 mg Documented By: ODALIS Omeprazole (Omeprazole 20 Mg Capsule.Dr) 20 mg PO DAILY@0630 [facility] Last Admin: 06/16/23 05:28 Dose: 20 mg Documented By: ODALIS Sodium Chloride (0.9 % Sodium Chloride Flush 3 Ml Syringe) 3 ml IVFLUSH QSHIFT [facility] Last Admin: 06/16/23 08:50 Dose: 3 ml Documented By: PATRIZIA Tramadol HCl (Tramadol Hcl 50 Mg Tablet) 25 mg PO DAILY PRN PRN Reason: severe pain Labs 06/15/23 05:36 06/15/23 05:36 Labs: Laboratory Results - last 24 hr 06/14/23 06/15/23 06/15/23 14:34 11:19 16:03 POC Glucose 286 H 262 H Lyme Screen IgG & IgM <0.90 06/15/23 06/16/23 20:22 07:36 POC Glucose 295 H 86 Lyme Screen IgG & IgM Microbiology Microbiology Results: Microbiology 06/13/23 09:21 Blood Culture - Preliminary Blood - Venous No growth after 48 hours. 06/13/23 09:08 Blood Culture - Preliminary Blood - Venous No growth after 48 hours. 06/12/23 17:54 Urine Culture - Final Urine clean catch - Urine turk top Lisbeth albicans Assessment and Plan (1) Fever: Status: Acute Plan d3 77yo M with HTN, HLD, CKD3, DM2, nephrolithiasis, CVA with L hemiparesis presenting after mechanical fall and was awaiting rehab placement but then developed fever, concern for candidal UTI or tickborne illness febrile of unknown source - UCx with Lisbeth albicans, no bacteria; d/c ceftriaxone. BCx negative - doxycycline 06/13- for possible anaplasmosis; molecular panel pending. - fluconazole 06/13- for possible candidal UTI but may be colonization; discuss with UTI. AMERICO/CKD3 - Cr improved with holding furosemide HTN - amlodipine, carvedilol; hold furosemide for now DM2 - basal-bolus insulin hx G tube feeds - no longer needed, tube removed by surgeon at bedside today neuropathy - gabapentin mood disorder - mirtazapine VTE prophylaxis - UFH dispo - STR In my clinical judgment, the patient requires continued inpatient hospitalization for the following reasons: infectious workup + placement Total time managing care of this patient today: 35 minutes. Quality Stroke Does the patient have a stroke diagnosis?: No VTE Prior VTE?: No VTE Risk Level:: Medical - moderate - high VTE Device Contraindication: N/A - Device Ordered VTE Drug Contraindication: N/A - Med Ordered
[2023-06-16 11:16] LABS: Glucose, Whole Blood 181 mg/dL (60-115)
[2023-06-16] MEDS: Insulin Lispro 100 UNIT/ML 3 ML VIAL SUBCUT ×3 (11:50→21:12)
--- NOTE | 2023-06-16 13:17 | MHC.CM.PN ---
EMR REVIEWED, PER HOSPITALIST PT AN BE MEDICALLY CLEARED IF HAS STR BED, [facility] HAS BEEN SENT UPDATES AND REQUEST TO [facility] PT TODAY FACILITY WAS GIVEN AUTH ON 06/13 PRIOR TO ADMISSION, CM AWAITING RESPONSE.
--- NOTE | 2023-06-16 15:32 | P.CDIM_ITS ---
PROVIDER RESPONSE TEXT: To clarify, the appropriate diagnosis supported by the clinical indicators: Diabetes mellitus Type 2 with hyperglycemia: DM2 with hyperglycemia QUERY TEXT: PHYSICIAN'S DOCUMENTATION REQUEST Date of Query: 06/15/2023 09:03 AM EDT Patient Name: Hector Jaramillo Admit Date: 06/14/2023 Dear Amparo Monzon, A review of the medical record indicates additional documentation may be needed. Please review below and update the documentation accordingly. Clinical Indicators: LABS: POC glucose 330 H Insulin Please clarify the following regarding the Complications of Diabetes Mellitus (DM): Diabetes mellitus Type 2 with hyperglycemia possible, suspected, probable, resolved etc. Other (explain) Clinically unable to determine (explain) Thank you, Diane Higginbotham, CCS, CDIS Use of terms such as suspected, likely, concern for, or probable (associated with a specific diagnosi s that is being evaluated, monitored, or treated as if it exists) are acceptable and can be coded in the inpatient se tting, when documented at the time of discharge. Please use your independent medical judgment in providing your response. THIS QUERY IS PART OF THE PERMANENT MEDICAL RECORD
[2023-06-16 16:41] LABS: Glucose, Whole Blood 293 mg/dL (60-115)
[2023-06-16] MEDS: Acetaminophen 325 MG TABLET 650 MG PO (16:56)
[2023-06-16 20:50] LABS: Glucose, Whole Blood 208 mg/dL (60-115)
[2023-06-16] MEDS: Insulin Glargine,Hum.rec.anlog 100 UNIT/ML 10 ML VIAL 80 UNIT SUBCUT (21:12)
[2023-06-16] MEDS: amLODIPine Besylate 5 MG TABLET PO (21:12)
[2023-06-16] MEDS: Mirtazapine 15 MG TABLET PO (21:13)
[2023-06-16] MEDS: Gabapentin 300 MG CAPSULE PO (21:13)
[2023-06-17] VITALS (7 sets, daily range): BP systolic 118–136; BP diastolic 58–93; PULSE 68–75; RESP 18; TEMP 36.3–36.6; O2SAT 94–97
[2023-06-17] MEDS: Acetaminophen 325 MG TABLET 650 MG PO ×2 (00:04→15:30)
[2023-06-17] MEDS: Omeprazole 20 MG CAPSULE.DR PO (05:46)
[2023-06-17] MEDS: Heparin Sodium,Porcine 5,000 UNIT/ML VIAL 5000 UNIT SUBCUT ×2 (05:46→16:44)
[2023-06-17 06:28] LABS: Hematocrit 35.2 % (42.0-52.0); Hemoglobin 11.2 g/dl (14.0-18.0); Mean Corpuscular HGB Conc 31.8 g/dl (31.0-36.0); Mean Corpuscular Hemoglobin 26.7 pg (27.0-33.0); Mean Corpuscular Volume 83.8 fL (80.0-98.0); Mean Platelet Volume 9.8 fL (9.4-12.4); Platelet Count 393 X10*3/uL (160-400); Red Cell Distribution Width 14.5 % (11.0-16.0); White Blood Count 7.6 X10*3/uL (4.8-10.8)
[2023-06-17 06:55] LABS: Alanine Aminotransferase 10 U/L (0-40); Albumin Level 2.9 g/dL (3.5-5.0); Alkaline Phosphatase 96 U/L (39-117); Anion Gap 14 (12-20); Aspartate Amino Transferase 12 U/L (5-37); Bilirubin Total 0.3 mg/dL (0.0-1.0); Blood Urea Nitrogen 29 mg/dL (9-16); C Reactive Protein 15.48 mg/dL (< or = 0.50); Calcium 9.5 mg/dL (8.4-10.2); Carbon Dioxide 24 mmol/L (22-29); Chloride 105 mmol/L (96-108); Creatinine Clr Calc Pharmacy 28.8; Estimated Glomerular Filt Rate 31; Glucose Random 82 mg/dL (60-115); Lactate Dehydrogenase 131 U/L (118-273); Potassium 4.2 mmol/L (3.3-5.1); Sodium 139 mmol/L (135-145); Total Protein 7.7 g/dL (6.5-8.0)
[2023-06-17 07:25] LABS: Procalcitonin 0.16 ng/mL
[2023-06-17 07:51] LABS: Glucose, Whole Blood 85 mg/dL (60-115)
[2023-06-17] MEDS: carvediloL 6.25 MG TABLET PO ×2 (08:37→20:39)
[2023-06-17] MEDS: Doxycycline Monohydrate 100 MG CAPSULE PO ×2 (08:37→20:39)
[2023-06-17] MEDS: 0.9 % Sodium Chloride Flush 3 ML SYRINGE IVFLUSH ×3 (08:37→20:45)
--- NOTE | 2023-06-17 10:14 | P.PNIM_ITS ---
Subjective Subjective Date of Service: 06/17/23 Interval History: no further fever no dysuria no cough no diarrhea no pain This history was taken in [place] from the patient. Review of Systems Review of Systems: Yes all other systems are reviewed and are negative Physical Exam 2 Vital Signs: Vital Signs: Last Vital Signs Temp 97.8 F 06/17/23 07:21 Pulse 68 06/17/23 08:37 Resp 18 06/17/23 07:21 BP 125/93 H 06/17/23 08:37 Pulse Ox 94 06/17/23 07:21 O2 Del Method Room Air 06/17/23 07:21 BMI result Body Mass Index 23.8 Gen: in no acute distress HEENT: sclera anicteric, moist mucus membranes Neck: supple Lungs: clear to auscultation bilaterally Heart: regular rate and rhythm, no murmurs Abd: soft, non-tender, non-distended, G tube removal site with dry dressing : no CVA tenderness, no suprapubic tenderness Ext: no edema Skin: warm/well-perfused Neuro: alert and oriented x3, L hemiparesis Psych: appropriate affect Objective Data Active Medications Acetaminophen (Acetaminophen 325 Mg Tablet) 650 mg PO Q6H PRN PRN Reason: fever of mild pain Last Admin: 06/17/23 00:04 Dose: 650 mg Documented By: ODALIS Amlodipine Besylate (Amlodipine Besylate 5 Mg Tablet) 5 mg PO BEDTIME [facility]; Protocol Last Admin: 06/16/23 21:12 Dose: 5 mg Documented By: ODALIS Artificial Tears (Artificial Tears 15 Ml Drops) 1 drop EYE-BOTH BID PRN PRN Reason: Dry Eye(S) Carvedilol (Carvedilol 6.25 Mg Tablet) 6.25 mg PO BID [facility]; Protocol Last Admin: 06/17/23 08:37 Dose: 6.25 mg Documented By: PATRIZIA Doxycycline Monohydrate (Doxycycline Monohydrate 100 Mg Capsule) 100 mg PO BID [facility] Last Admin: 06/17/23 08:37 Dose: 100 mg Documented By: PATRIZIA Gabapentin (Gabapentin 300 Mg Capsule) 300 mg PO BEDTIME [facility] Last Admin: 06/16/23 21:13 Dose: 300 mg Documented By: ODALIS Glucose (Glucose Gel 15 Gm Gel..Gram.) 15 gm PO Q15M PRN; Protocol PRN Reason: per Hypoglycemia Standing Ord. Heparin Sodium (Porcine) (Heparin Sodium,Porcine 5,000 Unit/Ml Vial) 5,000 unit SUBCUT Q12H [facility] Last Admin: 06/17/23 05:46 Dose: 5,000 unit Documented By: ODALIS Dextrose (D10) 250 mls @ 750 mls/hr IV Q15M PRN; Protocol PRN Reason: per Hypoglycemia Standing Ord. Insulin Glargine (Insulin Glargine,Hum.Rec.Anlog 100 Unit/Ml 10 Ml Vial) 80 unit SUBCUT BEDTIME [facility] Last Admin: 06/16/23 21:12 Dose: 80 unit Documented By: ODALIS Insulin Human Lispro (Insulin Lispro 100 Unit/Ml 3 Ml Vial) 0 unit SUBCUT QIDACHS [facility]; Protocol Last Admin: 06/17/23 07:52 Dose: Not Given Documented By: PATRIZIA Non-Admin Reason: No Insulin Coverage Mirtazapine (Mirtazapine 15 Mg Tablet) 15 mg PO BEDTIME [facility] Last Admin: 06/16/23 21:13 Dose: 15 mg Documented By: ODALIS Omeprazole (Omeprazole 20 Mg Capsule.Dr) 20 mg PO DAILY@0630 [facility] Last Admin: 06/17/23 05:46 Dose: 20 mg Documented By: ODALIS Sodium Chloride (0.9 % Sodium Chloride Flush 3 Ml Syringe) 3 ml IVFLUSH QSHIFT [facility] Last Admin: 06/17/23 08:37 Dose: 3 ml Documented By: PATRIZIA Tramadol HCl (Tramadol Hcl 50 Mg Tablet) 25 mg PO DAILY PRN PRN Reason: severe pain Labs 06/17/23 05:58 06/17/23 05:58 Labs: Laboratory Results - last 24 hr 06/16/23 06/16/23 06/16/23 11:11 16:35 20:47 MCV MCH MCHC RDW Plt Count MPV Absolute Nucleated RBC Nucleated RBC % (auto) Anion Gap Estim Creat Clear Calc Estimated GFR POC Glucose 181 H 293 H 208 H Random Glucose Calcium Total Bilirubin AST ALT Alkaline Phosphatase Lactate Dehydrogenase C-Reactive Protein Total Protein Albumin Procalcitonin 06/17/23 06/17/23 05:58 07:19 MCV 83.8 MCH 26.7 L MCHC 31.8 RDW 14.5 Plt Count 393 MPV 9.8 Absolute Nucleated RBC 0.000 Nucleated RBC % (auto) 0.0 Anion Gap 14 Estim Creat Clear Calc 28.8 Estimated GFR 31 POC Glucose 85 Random Glucose 82 Calcium 9.5 Total Bilirubin 0.3 AST 12 ALT 10 Alkaline Phosphatase 96 Lactate Dehydrogenase 131 C-Reactive Protein 15.48 H Total Protein 7.7 Albumin 2.9 L Procalcitonin 0.16 Assessment and Plan (1) Fever: Status: Acute Plan d4 77yo M with HTN, HLD, CKD3, DM2, nephrolithiasis, CVA with L hemiparesis presenting after mechanical fall and was awaiting rehab placement but then developed fever, concern for candidal UTI or tickborne illness febrile of unknown source - UCx with Lisbeth albicans, no bacteria; d/c ceftriaxone. BCx negative - doxycycline 06/13- for possible anaplasmosis; molecular panel pending. - fluconazole 06/14-06/15- for possible candidal UTI but may be colonization; discontinued per ID AMERICO/CKD3 - Cr improved with holding furosemide; resume furosemide and recheck BMP in AM HTN - amlodipine, carvedilol, furosemide DM2 - basal-bolus insulin hx G tube feeds - no longer needed, tube removed by surgeon at bedside 06/15 neuropathy - gabapentin mood disorder - mirtazapine VTE prophylaxis - UFH dispo - STR In my clinical judgment, the patient requires continued inpatient hospitalization for the following reasons: infectious workup + placement Total time managing care of this patient today: 35 minutes. Quality Stroke Does the patient have a stroke diagnosis?: No VTE Prior VTE?: No VTE Risk Level:: Medical - moderate - high VTE Device Contraindication: N/A - Device Ordered VTE Drug Contraindication: N/A - Med Ordered
[2023-06-17 11:19] LABS: Glucose, Whole Blood 184 mg/dL (60-115)
[2023-06-17] MEDS: Furosemide 20 MG TABLET PO (11:27)
[2023-06-17] MEDS: Insulin Lispro 100 UNIT/ML 3 ML VIAL SUBCUT ×3 (11:27→20:42)
--- NOTE | 2023-06-17 11:59 | PC.NURSE ---
patient with c/o bladder discomfort and unable to urinate since previous shift, [place] cath was placed around 0800 and there has been no output. Patient was bladder scanned showing greater than 340ml. [place] cath was then removed and pt was given urinal to void in, after few minutes patient was able to void in urinal on his own measuring 700ml, pt no longer c/o bladder discomfort
--- NOTE | 2023-06-17 15:53 | MHC.CM.PN ---
[facility] HAS SUBMITTED FOR INSURANCE AUTH, CM AWAITS NOTIFICATION FROM CENTER.
[2023-06-17 16:12] LABS: Glucose, Whole Blood 280 mg/dL (60-115)
[2023-06-17 20:21] LABS: Glucose, Whole Blood 259 mg/dL (60-115)
[2023-06-17] MEDS: Gabapentin 300 MG CAPSULE PO (20:39)
[2023-06-17] MEDS: amLODIPine Besylate 5 MG TABLET PO (20:39)
[2023-06-17] MEDS: Mirtazapine 15 MG TABLET PO (20:39)
[2023-06-17] MEDS: traMADoL HCL 50 MG TABLET 25 MG PO (20:40)
[2023-06-17] MEDS: Insulin Glargine,Hum.rec.anlog 100 UNIT/ML 10 ML VIAL 80 UNIT SUBCUT (20:42)
[2023-06-18 02:42] VITALS: BP 127/59; PULSE 69; RESP 17; TEMP 36.4; O2SAT 94
[2023-06-18] MEDS: Omeprazole 20 MG CAPSULE.DR PO (05:50)
[2023-06-18] MEDS: Heparin Sodium,Porcine 5,000 UNIT/ML VIAL 5000 UNIT SUBCUT (05:51)
[2023-06-18 07:23] LABS: Anion Gap 15 (12-20); Blood Urea Nitrogen 32 mg/dL (9-16); Calcium 9.7 mg/dL (8.4-10.2); Carbon Dioxide 24 mmol/L (22-29); Chloride 104 mmol/L (96-108); Creatinine Clr Calc Pharmacy 30.2; Estimated Glomerular Filt Rate 32; Glucose Random 114 mg/dL (60-115); Potassium 4.6 mmol/L (3.3-5.1); Sodium 138 mmol/L (135-145)
[2023-06-18 07:44] VITALS: BP 117/58; PULSE 71; RESP 15; TEMP 36.6; O2SAT 94
[2023-06-18] MEDS: carvediloL 6.25 MG TABLET PO (07:47)
[2023-06-18] MEDS: Doxycycline Monohydrate 100 MG CAPSULE PO (07:47)
[2023-06-18] MEDS: Acetaminophen 325 MG TABLET 650 MG PO (07:47)
[2023-06-18] MEDS: 0.9 % Sodium Chloride Flush 3 ML SYRINGE IVFLUSH (07:47)
[2023-06-18 07:51] LABS: Glucose, Whole Blood 109 mg/dL (60-115)
[2023-06-18 11:42] LABS: Glucose, Whole Blood 261 mg/dL (60-115)
[2023-06-18] MEDS: Insulin Lispro 100 UNIT/ML 3 ML VIAL SUBCUT (11:55)
--- NOTE | 2023-06-18 12:14 | MHC.CM.PN ---
EMR reviewed. Per MD rounds patient is medically cleared for dc at [facility] [place]. Facility has auth. S transportation scheduled for 3pm. Patient, RN and MD aware. IMM delivered.
--- NOTE | 2023-06-18 14:52 | P.DS_ITS ---
DS: Providers Provider Date of Service: 06/18/23 Date of admission: 06/14/23 17:12 Date of discharge: 06/18/23 Primary care physician: Natacha Olivas MD Consults: 06/14/23 13:14 Consult to Infectious Diseases Stat Consulting Provider: [facility] Infectious Disease Reason for consultation: yeast ? fever ? 06/14/23 17:01 Consult to Infectious Diseases Routine Consulting Provider: [facility] Infectious Disease Reason for consultation: UTI, candiduria 06/15/23 16:23 Consult to General Surgery Routine Consulting Provider: [facility] General Surgeons Reason for consultation: G-tube placed at outside hospital, no longer needed, please disconinute DS: Diagnosis Discharge Diagnosis (1) Fever: Status: Acute (2) Gastrostomy in place: Status: Acute (3) Acute kidney injury superimposed on chronic kidney disease: Status: Acute (4) Candiduria: Status: Acute (5) Left hemiparesis: Status: Acute (6) Acute on chronic kidney failure: Status: Acute DS: Summary Hospital Course Hospital Course: from my admission H+P, 06/14/23: 77yo M with HTN, HLD, CKD3, DM2, nephrolithiasis, CVA with L hemiparesis after which he was on G-tube feeds. Presented to ED 06/12/23 after tripping on walker and injuring is L toe. Was awaiting STR placement in the ED. Diagnosed with UTI and started cefuroxime. On 06/13/23, he developed fever to 101F in the morning. Blood cultures, CXR and ceftriaxone were ordered. CXR negative. Influenza/Covid/RSV PCRs all negative. WBC count was normal. Lactate was normal. He was given empiric ceftriaxone. Today he devloped a fever to 102.6. Urine microbiology was positive for yeast. Fluconazole was ordered per ID consultation; doxycycline was also started. CT abdomen showed mild left hydronephrosis but no pyelonephritis or stones. Nothing grew from blood cultures at 24 hr. Overall, other than the fever, he actually feels quite well and denies any flank pain or urinary burning/urgency. 77yo M with HTN, HLD, CKD3, DM2, nephrolithiasis, CVA with L hemiparesis presenting after mechanical fall and was awaiting rehab placement in the ED but then developed fever with concern for candidal UTI or tickborne illness. He was admitted to the medical-surgical floor. Hospital course by problem: fever of unknown source - UCx with Lisbeth albicans, no bacteria; d/c'ed ceftriaxone. BCx negative. Got fluconazole 06/14-06/15 for possible candidal UTI but thought by ID to represent colonization, so this was discontinued. Also he had no true urinary symptoms or flank pain. - Start on doxycycline 06/13 per ID recommendation for possible anaplasmosis; molecular panel pending. Recommend continuing for 6 more days pending results of tickborne panel. AMERICO/CKD3 - Cr improved with holding furosemide; resumed furosemide and creatinine was at baseline of around 2. hx G tube feeds - No longer needed, so Gtube removed by surgeon at bedside 06/15. Hemiparesis due to prior CVA - He was discharged to [facility] for short-term rehabilitation. Time Attestation Discharge Coordination Time (in mins): 45 Quality: Safe Use of Opioids Does Pt have an Active Cancer Diagnosis on the Problem List?: No Quality: Stroke Does the patient have a stroke diagnosis?: No Physical Exam Vital Signs: Vital Signs: Last Vital Signs Temp 98 F 06/18/23 07:44 Pulse 71 06/18/23 07:44 Resp 15 06/18/23 07:44 BP 117/58 L 06/18/23 07:44 Pulse Ox 94 06/18/23 07:44 O2 Del Method Room Air 06/18/23 07:44 BMI result Body Mass Index 23.8 Gen: in no acute distress HEENT: sclera anicteric, moist mucus membranes Neck: supple Lungs: clear to auscultation bilaterally Heart: regular rate and rhythm, no murmurs Abd: soft, non-tender, non-distended, G tube removal site with dry dressing : no CVA tenderness, no suprapubic tenderness Ext: no edema, L knee somewhat tender, a little swollen Skin: warm/well-perfused Neuro: alert and oriented x3, L hemiparesis Psych: appropriate affect DS: Data Data Completed and Pending Completed studies during hospitalization [Text1]: Laboratory Results WBC 7.6 X10*3/uL (4.8-10.8) 06/17/23 05:58 RBC 4.20 X10*6/uL (4.60-5.80) L 06/17/23 05:58 Hgb 11.2 g/dl (14.0-18.0) L 06/17/23 05:58 Hct 35.2 % (42.0-52.0) L 06/17/23 05:58 MCV 83.8 fL (80.0-98.0) 06/17/23 05:58 MCH 26.7 pg (27.0-33.0) L 06/17/23 05:58 MCHC 31.8 g/dl (31.0-36.0) 06/17/23 05:58 RDW 14.5 % (11.0-16.0) 06/17/23 05:58 Plt Count 393 X10*3/uL (160-400) 06/17/23 05:58 MPV 9.8 fL (9.4-12.4) 06/17/23 05:58 Immature Gran % (Auto) 0.3 % (0.0-0.4) 06/14/23 14:34 Neut % (Auto) 77.9 % (45-73) H 06/14/23 14:34 Lymph % (Auto) 14.1 % (20-40) L 06/14/23 14:34 [place] % (Auto) 5.4 % (2-11) 06/14/23 14:34 Eos % (Auto) 2.1 % (0-4) 06/14/23 14:34 Baso % (Auto) 0.2 % (0-2) 06/14/23 14:34 Lymph # (Auto) 1.8 X10*3/uL (1.2-4.9) 06/14/23 14:34 [place] # (Auto) 0.7 X10*3/uL (0.1-1.2) 06/14/23 14:34 Eos # (Auto) 0.3 X10*3/uL (0.0-0.4) 06/14/23 14:34 Baso # (Auto) 0.0 X10*3/uL (0.0-0.2) 06/14/23 14:34 Abs Immat Gran (auto) 0.04 X10*3/uL (0.00-0.03) H 06/14/23 14:34 Absolute Neuts (auto) 9.9 x10*3/uL (2.0-8.3) H 06/14/23 14:34 Absolute Nucleated RBC 0.000 X10*3/uL (0.0-0.012) 06/17/23 05:58 Nucleated RBC % (auto) 0.0 /100WBC (0.0-0.2) 06/17/23 05:58 Smear Path Review SEE NOTE 06/15/23 05:36 Hold Purple Top SEE NOTE 06/18/23 05:47 Sodium 138 mmol/L (135-145) 06/18/23 05:47 Potassium 4.6 mmol/L (3.3-5.1) 06/18/23 05:47 Chloride 104 mmol/L (96-108) 06/18/23 05:47 Carbon Dioxide 24 mmol/L (22-29) 06/18/23 05:47 Anion Gap 15 (12-20) 06/18/23 05:47 BUN 32 mg/dL (9-16) H 06/18/23 05:47 Creatinine 2.01 mg/dL (0.5-1.4) H 06/18/23 05:47 Estim Creat Clear Calc 30.2 06/18/23 05:47 Estimated GFR 32 06/18/23 05:47 POC Glucose 261 mg/dL (60-115) H 06/18/23 11:37 Random Glucose 114 mg/dL (60-115) 06/18/23 05:47 Lactic Acid 1.5 mmol/L (0.5-2.0) 06/13/23 09:21 Calcium 9.7 mg/dL (8.4-10.2) 06/18/23 05:47 Magnesium 2.5 mg/dL (1.6-2.6) 06/12/23 14:51 Total Bilirubin 0.3 mg/dL (0.0-1.0) 06/17/23 05:58 Direct Bilirubin 0.2 mg/dL (0.0-0.5) 06/12/23 14:51 AST 12 U/L (5-37) 06/17/23 05:58 ALT 10 U/L (0-40) 06/17/23 05:58 Alkaline Phosphatase 96 U/L (39-117) 06/17/23 05:58 Lactate Dehydrogenase 131 U/L (118-273) 06/17/23 05:58 C-Reactive Protein 15.48 mg/dL (< or = 0.50) H 06/17/23 05:58 Total Protein 7.7 g/dL (6.5-8.0) 06/17/23 05:58 Albumin 2.9 g/dL (3.5-5.0) L 06/17/23 05:58 Procalcitonin 0.16 ng/mL 06/17/23 05:58 Urine Color Yellow 06/12/23 17:13 Urine Appearance Cloudy 06/12/23 17:13 Urine pH 5.5 (5.0-9.0) 06/12/23 17:13 Ur Specific Deputy 1.020 (1.005-1.025) 06/12/23 17:13 Urine Protein 30 (1+) mg/dL (Neg-Trace) H 06/12/23 17:13 Urine Glucose (UA) >=1000 mg/dL (Negative) H 06/12/23 17:13 Urine Ketones Negative mg/dL (Negative) 06/12/23 17:13 Urine Blood Small (1+) (Negative) H 06/12/23 17:13 Urine Nitrite Negative (Negative) 06/12/23 17:13 Ur Leukocyte Esterase Moderate (2+) (Negative) H 06/12/23 17:13 Urine RBC 0-2 /HPF (0-2) 06/12/23 17:13 Urine WBC >50 /HPF (0-5) H 06/12/23 17:13 Ur Squamous Epith Cells 0-2 /HPF (0-2) 06/12/23 17:13 Urine Bacteria None Seen (None Seen) 06/12/23 17:13 Hyaline Casts 0-2 /LPF (0-2) 06/12/23 17:13 Urine Yeast Present 06/12/23 17:13 Lyme Screen IgG & IgM <0.90 index 06/14/23 14:34 Lyme Progressive Test TNP 06/14/23 14:34 Influenza Type A (PCR) NEGATIVE (Negative) 06/12/23 14:51 Influenza Type B (PCR) NEGATIVE (Negative) 06/12/23 14:51 RSV RNA Qual (PCR) NEGATIVE (Negative) 06/12/23 14:51 SARS-CoV-2 RNA (RT-PCR) NEGATIVE (Negative) 06/12/23 14:[address] 06/12/23 14:41 IMPRESSION: Interval evolution right thalamic hemorrhage. Punctate right thalamic hyperdensity likely residual. To confirm, consider nonenhanced CT follow-up in 12 hours. There are now: Pelvis: [place] At the time of this dictation, PSA service contacted to alert referring physician. Foot X-Ray 06/12/23 14:43 IMPRESSION: Chronic changes observed. Chest X-Ray 06/13/23 09:03 IMPRESSION: No acute abnormality. Abdomen/Pelvis CT 06/14/23 15:32 IMPRESSION: 1. Mild hydronephrosis of left kidney. No renal or ureteral stone. 2. Cholelithiasis. 3. Diverticulosis of colon. No acute change of the bowel. 4. Percutaneous gastrotomy catheter in place. Fleischner guidelines were followed. Knee X-Ray 06/18/23 12:20 IMPRESSION: Mild tricompartmental osteoarthritis. [id number] joint effusion. Pending studies at discharge: Tickborne molecular panel [PCR] 06/14/23 Discharge Plan Discharge Anticipated Discharge Date/Time: 06/18/23 14:48 Patient Disposition: Xfer SNF Discharge Diagnosis: Fever Gastrostomy tube Arthritis L hemiparesis from prior stroke Referrals: [facility] [Outside] (Short term rehab) Natacha Olivas MD [Primary Care Provider] - 1 Week Discharge Medications: New acetaminophen 325 mg Tablet 650 mg PO Q6H PRN (Reason: fever of mild pain) Qty: 1 0RF doxycycline monohydrate 100 mg Capsule 100 mg PO BID Qty: 12 0RF Continued (DME) blood-glucose meter [OneTouch Verio Meter] [facility] [place] Rx Instructions .ROUTE .MEDSUPPLY Qty: 1 0RF Rx Instructions: As directed 4x/day (DME) OneTouch Verio test strips Strip See Rx Instructions .ROUTE .MEDSUPPLY Qty: 150 11RF Rx Instructions: 4 x/day (DME) lancets [OneTouch Delica Lancets] [facility] See Rx Instructions .ROUTE .MEDSUPPLY Qty: 200 10RF Rx Instructions: four times a day pantoprazole 40 mg tablet,delayed release (DR/EC) 40 mg PO QAM Qty: 90 1RF Dry Eye Relief 1-0.2-0.2 % Drops 1 drp OPHTHALMIC (EYE) BID PRN (Reason: Dry Eye(S)) insulin lispro 100 unit/mL insulin pen 15 unit subcut TIDAC Rx Instructions: 15 units with breakfast and lunch and 15 units with dinner subcutaneously; mirtazapine 15 mg tablet,disintegrating 15 mg PO BEDTIME insulin glargine U-300 conc [Toujeo SoloStar U-300 Insulin] 300 unit/mL (1.5 mL) insulin pen 80 unit subcut BEDTIME amlodipine [Norvasc] 5 mg tablet 5 mg PO BEDTIME tramadol 50 mg tablet 25 mg PO DAILY PRN (Reason: severe pain) gabapentin 300 mg capsule 300 mg PO BEDTIME Jardiance 25 mg tablet 25 mg PO QAM (DME) pen needle, diabetic [Pentips] 32 gauge x needle See Rx Instructions .ROUTE .MEDSUPPLY Qty: 50 Rx Instructions: As directed 4 TIMES A DAY furosemide 20 mg tablet 20 mg PO Q48H carvedilol [Coreg] 6.25 mg tablet 6.25 mg PO BID 90 Days Qty: 180 3RF Rx Instructions: must administer with a meal/food Discharge Orders: Discharge Order (Routine); Ordered 06/18/23 Ordered By: Amparo Monzon Diet: Diabetic diet Activity on Discharge: As tolerated Stand Alone Forms: Patient Portal Discharge page Print Language: Palestinian Care Plan Goals: rehabilitation Health Concerns: Fever - Resolved. Not UTI per infectious disease. Take doxycycline 100 mg PO bid x 6d for possible tickborne illness per ID. Full tickborne PCR panel pending. Gastrostomy tube - Discontinued in hospital. Arthritis - Acetaminophen and tramadol as needed. L hemiparesis from prior stroke - Short term rehabilitation. Please follow up with your primary care doctor within 1 week of discharge from SNF. Return to the hospital if you experience recurrent or worsening symptoms. Plan of Treatment: as above Assessment: See Discharge Summary.
[2023-06-18 15:00] VITALS: BP 128/60; PULSE 65; RESP 18; TEMP 36; O2SAT 95
[2023-06-18 16:13] LABS: A. Phagocytphilium DNA,RT-PCR NOT DETECTED (NOT DETECTED); Babesia Microti DNA, RT-PCR NOT DETECTED (NOT DETECTED); Borrelia Miyamotoi,DNA RT-PCR NOT DETECTED (NOT DETECTED); E.Chaffeensis DNA RT-PCR NOT DETECTED (NOT DETECTED); Lyme(Borrelia ssp)DNA RT-PCR NOT DETECTED (NOT DETECTED)
== END 2023-06-18 16:16 | disposition skilled nursing facility (03) | DRG 690 ==
LOC: HO.ED 06-14 12:52 → HO.EDOVER 06-14 17:23 → HO.S3 06-14 19:33
PROVIDERS: Physician Assistant; Physician Assistant Medical; Admitting Provider Family Medicine; Emergency Provider Emergency Medicine; PCP Family Medicine; Visit Provider Family Medicine
DX: N13.6 Pyonephrosis (principal); I69.354 Hemiplegia and hemiparesis following cerebral infarction affecting left non-dominant side; I12.9 Hypertensive chronic kidney disease with stage 1 through stage 4 chronic kidney disease, or unspecified chronic kidney disease; N18.30 Chronic kidney disease, stage 3 unspecified; N17.9 Acute kidney failure, unspecified; S93.502A Unspecified sprain of left great toe, initial encounter; W19.XXXA Unspecified fall, initial encounter; E11.22 Type 2 diabetes mellitus with diabetic chronic kidney disease; F39 Unspecified mood [affective] disorder; I25.10 Atherosclerotic heart disease of native coronary artery without angina pectoris; E11.65 Type 2 diabetes mellitus with hyperglycemia; E11.42 Type 2 diabetes mellitus with diabetic polyneuropathy; Z20.822 Contact with and (suspected) exposure to COVID-19; Z93.1 Gastrostomy status; Z79.4 Long term (current) use of insulin; Z79.85 Long-term (current) use of injectable non-insulin antidiabetic drugs; Z79.899 Other long term (current) drug therapy; Z03.818 Encounter for observation for suspected exposure to other biological agents ruled out
CPT/HCPCS: 0241U; 36415; 70450; 71045; 73564; 73630; 74176; 74230; 80048; 80053; 80076; 81001; 82947; 83605; 83615; 83735; 84145; 85025; 85027; 86140; 86617; 86618; 87040; 87086; 87088; 87468; 87469; 87478; 87484; 87798; 92526; 92611; 93005; 97110; 97162; 99285; J0696; J1644

== ENCOUNTER → 2023-06-12 14:05 | Outpatient (BNV) | payer OTHER, SELFPAY | PROVIDERS: Emergency Provider Emergency Medicine; PCP Family Medicine; Visit Provider Internal Medicine Cardiovascular Disease | DX: R94.31 Abnormal electrocardiogram [ECG] [EKG] (principal) | CPT/HCPCS: 93010 ==

== ENCOUNTER 2023-06-14 17:12 | Outpatient (BNV) | payer OTHER, SELFPAY | END 2023-06-15 09:51 | PROVIDERS: Admitting Provider Family Medicine; Emergency Provider Emergency Medicine; PCP Family Medicine; Visit Provider Internal Medicine Cardiovascular Disease | DX: I49.9 Cardiac arrhythmia, unspecified (principal) | CPT/HCPCS: 93010 ==

== ENCOUNTER 2023-06-14 17:12 | Outpatient (BNV) | payer OTHER, SELFPAY | END 2023-06-15 10:11 | PROVIDERS: Admitting Provider Family Medicine; Emergency Provider Emergency Medicine; PCP Family Medicine; Visit Provider Physician Assistant Surgical | DX: R13.10 Dysphagia, unspecified (principal) | CPT/HCPCS: 74230 ==

== ENCOUNTER → 2023-06-14 17:12 | Outpatient (BNV) | payer OTHER, SELFPAY | PROVIDERS: Admitting Provider Family Medicine; Emergency Provider Emergency Medicine; PCP Family Medicine; Visit Provider Surgery | DX: S93.502A Unspecified sprain of left great toe, initial encounter (principal); Z93.1 Gastrostomy status | CPT/HCPCS: 99222 ==

== ENCOUNTER → 2023-06-14 17:12 | Outpatient (BNV) | payer OTHER, SELFPAY | PROVIDERS: Admitting Provider Family Medicine; Emergency Provider Emergency Medicine; PCP Family Medicine; Visit Provider Internal Medicine | DX: R50.9 Fever, unspecified (principal) | CPT/HCPCS: 99222 ==

== ENCOUNTER → 2023-06-14 17:12 | Outpatient (BNV) | payer OTHER, SELFPAY | PROVIDERS: Admitting Provider Family Medicine; Emergency Provider Emergency Medicine; PCP Family Medicine; Visit Provider Family Medicine | DX: R50.9 Fever, unspecified (principal); Z93.1 Gastrostomy status; N17.9 Acute kidney failure, unspecified; N18.9 Chronic kidney disease, unspecified; B37.49 Other urogenital candidiasis; G81.94 Hemiplegia, unspecified affecting left nondominant side | CPT/HCPCS: 99223; 99232; 99239 ==

== ENCOUNTER 2023-07-07 08:57 | Emergency (ER) | payer OTHER, SELFPAY ==
--- NOTE | ~2023-07-07 | XR_ITS ---
EXAMINATION: XR HIP WITH PELVIS, LEFT XR KNEE, LEFT XR FOOT, LEFT CLINICAL INFORMATION: Pain following a fall. COMPARISON: Left knee radiographs dated 06/18/2023. CT abdomen/pelvis dated 06/14/2023 and left foot radiographs dated 06/12/2023. TECHNIQUE: AP pelvis as well as AP and frog-leg lateral views of the left hip. AP and lateral views of the left knee. AP, bilateral oblique, and lateral views of the left foot. FINDINGS: LEFT HIP AND PELVIS: No acute fracture or dislocation. Mild bilateral hip joint space narrowing with small marginal osteophytes. No osseous erosion. Atherosclerotic calcifications. LEFT KNEE: No acute fracture or dislocation. Tiny medial and patellofemoral compartment marginal osteophytes. Superior patellar enthesophyte. No significant joint effusion. Atherosclerotic calcifications. Findings are unchanged. LEFT FOOT: No displaced fracture. Diffuse osteopenia somewhat limits evaluation for a nondisplaced fracture. No dislocation. Mild joint space narrowing with small marginal osteophytes at the 1st metatarsophalangeal joint and hallux sesamoids. Prominent plantar and dorsal calcaneal enthesophytes. Atherosclerotic calcifications. XR/XR hip LT w PEL1V IMPRESSION: Left hip and pelvis: No acute fracture or dislocation. Mild bilateral hip osteoarthritis, unchanged. Left Knee: No acute fracture or dislocation. Mild medial and patellofemoral compartment osteoarthritis, unchanged. Left Foot: No displaced fracture. Diffuse osteopenia somewhat limits evaluation for a nondisplaced fracture. Mild osteoarthritis at the 1st metatarsophalangeal joint and hallux sesamoids. Prominent plantar and dorsal calcaneal spurs.
--- NOTE | ~2023-07-07 | CT_ITS ---
EXAMINATION: CT HEAD WITHOUT CONTRAST CLINICAL INFORMATION: Fall. Head strike. COMPARISON: CT head 06/12/2023. TECHNIQUE: Contiguous axial imaging was performed from the skull base to vertex without intravenous administration of contrast. This CT examination was performed using dose optimization techniques as appropriate, variously including the following: *Automated exposure control *Adjustment of mA and/or kV according to patient size (this includes techniques or standardized protocols for targeted exams where dose is matched to indication/reason for exam; i.e. extremities or head) *Use of iterative reconstruction technique DLP: 680 mGy-cm FINDINGS: There is a chronic within infarcts involving the right thalamus. Reed-white matter differentiation is otherwise grossly preserved and there is no evidence of acute territorial infarct. No acute hemorrhage or abnormal extra axial collection. No intracranial mass effect or hydrocephalus. The calvarium and skull base are intact. Mastoid air cells and middle ear cavities are well aerated. No active paranasal sinus disease. CT/CT head/brain wo IV con IMPRESSION: There is a chronic lacunar infarct involving the right thalamus. Otherwise unremarkable examination. No evidence of acute territorial infarct or hemorrhage.
--- NOTE | ~2023-07-07 | XR_ITS ---
EXAMINATION: XR HIP WITH PELVIS, LEFT XR KNEE, LEFT XR FOOT, LEFT CLINICAL INFORMATION: Pain following a fall. COMPARISON: Left knee radiographs dated 06/18/2023. CT abdomen/pelvis dated 06/14/2023 and left foot radiographs dated 06/12/2023. TECHNIQUE: AP pelvis as well as AP and frog-leg lateral views of the left hip. AP and lateral views of the left knee. AP, bilateral oblique, and lateral views of the left foot. FINDINGS: LEFT HIP AND PELVIS: No acute fracture or dislocation. Mild bilateral hip joint space narrowing with small marginal osteophytes. No osseous erosion. Atherosclerotic calcifications. LEFT KNEE: No acute fracture or dislocation. Tiny medial and patellofemoral compartment marginal osteophytes. Superior patellar enthesophyte. No significant joint effusion. Atherosclerotic calcifications. Findings are unchanged. LEFT FOOT: No displaced fracture. Diffuse osteopenia somewhat limits evaluation for a nondisplaced fracture. No dislocation. Mild joint space narrowing with small marginal osteophytes at the 1st metatarsophalangeal joint and hallux sesamoids. Prominent plantar and dorsal calcaneal enthesophytes. Atherosclerotic calcifications. XR/XR foot LT 2V IMPRESSION: Left hip and pelvis: No acute fracture or dislocation. Mild bilateral hip osteoarthritis, unchanged. Left Knee: No acute fracture or dislocation. Mild medial and patellofemoral compartment osteoarthritis, unchanged. Left Foot: No displaced fracture. Diffuse osteopenia somewhat limits evaluation for a nondisplaced fracture. Mild osteoarthritis at the 1st metatarsophalangeal joint and hallux sesamoids. Prominent plantar and dorsal calcaneal spurs.
--- NOTE | ~2023-07-07 | XR_ITS ---
EXAMINATION: XR HIP WITH PELVIS, LEFT XR KNEE, LEFT XR FOOT, LEFT CLINICAL INFORMATION: Pain following a fall. COMPARISON: Left knee radiographs dated 06/18/2023. CT abdomen/pelvis dated 06/14/2023 and left foot radiographs dated 06/12/2023. TECHNIQUE: AP pelvis as well as AP and frog-leg lateral views of the left hip. AP and lateral views of the left knee. AP, bilateral oblique, and lateral views of the left foot. FINDINGS: LEFT HIP AND PELVIS: No acute fracture or dislocation. Mild bilateral hip joint space narrowing with small marginal osteophytes. No osseous erosion. Atherosclerotic calcifications. LEFT KNEE: No acute fracture or dislocation. Tiny medial and patellofemoral compartment marginal osteophytes. Superior patellar enthesophyte. No significant joint effusion. Atherosclerotic calcifications. Findings are unchanged. LEFT FOOT: No displaced fracture. Diffuse osteopenia somewhat limits evaluation for a nondisplaced fracture. No dislocation. Mild joint space narrowing with small marginal osteophytes at the 1st metatarsophalangeal joint and hallux sesamoids. Prominent plantar and dorsal calcaneal enthesophytes. Atherosclerotic calcifications. XR/XR knee LT 2V IMPRESSION: Left hip and pelvis: No acute fracture or dislocation. Mild bilateral hip osteoarthritis, unchanged. Left Knee: No acute fracture or dislocation. Mild medial and patellofemoral compartment osteoarthritis, unchanged. Left Foot: No displaced fracture. Diffuse osteopenia somewhat limits evaluation for a nondisplaced fracture. Mild osteoarthritis at the 1st metatarsophalangeal joint and hallux sesamoids. Prominent plantar and dorsal calcaneal spurs.
[2023-07-07 09:00] VITALS: BP 137/72; PULSE 74; O2SAT 95
[2023-07-07 09:06] VITALS: BP 137/63; PULSE 70; RESP 16; TEMP 36.3; O2SAT 95; BMI 24.1
--- NOTE | 2023-07-07 09:52 | ECG_ITS ---
Test Reason : fall Blood Pressure : / mmHG Vent. Rate : 068 BPM Atrial Rate : 068 BPM P-R Int : 128 ms QRS Dur : 074 ms QT Int : 422 ms P-R-T Axes : 065 074 112 degrees QTc Int : 448 ms Normal sinus rhythm Nonspecific ST abnormality Abnormal ECG When compared with ECG of 15-JUN-2023 09:51, No significant change was found Referred By: Pedro Gandara Electronically Signed By:YENIFER AGUILAR MD
--- NOTE | 2023-07-07 09:57 | ED_ITS ---
HPI - Fall General Chief Complaint: Fall Stated Complaint: LLE PAIN S/P FALL THIS AM PER EMS Time Seen by Provider: 07/07/23 09:28 Source: patient Mode of arrival: ambulatory Limitations: other (poor historian ) History of Present Illness ED Provider: Kaleigh PARKER HPI Narrative: 77-year-old male history of stroke with remnant left-sided hemiparesis, CKD, hypertensive heart disease, diabetes, CKD, hyperlipidemia and hypertension presenting to the emergency department for evaluation of left-sided hip, knee and foot pain status post fall, patient reports he was at rehab, they were ambulating with him, he slowly lowered himself to the ground he does not know how he fell but he feel onto his left foot. No preceding symptoms to fall such as chest pain, shortness of breath, dizziness, palpitations or changes in vision. Patient reports pain is worse with movement better at rest. He denies chest pain, shortness breath, nausea, vomiting, abdominal pain, headache, vision changes, dizziness, weakness at this time. Patient not on blood thinners. There was no head strike no loss of consciousness or injuries to chest, abdomen or pelvis and this occurs. Related Data Home Medications ?Medication ?Instructions ?Recorded ?Confirmed peg [id number] 1 1 drp ophthalmic (eye) BID PRN Dry 11/01/21 06/14/23 %-0.2 %-0.2 % eye drops (Dry Eye Eye(S) Relief) furosemide 20 mg tablet 20 mg PO Q48H 03/29/22 06/14/23 pen needle, diabetic 32 gauge x #50 ea 03/29/22 11/08/22 (Pentips) amlodipine 5 mg tablet (Norvasc) 5 mg PO BEDTIME 04/10/23 06/14/23 gabapentin 300 mg capsule 300 mg PO BEDTIME 04/10/23 06/14/23 tramadol 50 mg tablet 25 mg PO DAILY PRN severe pain 04/10/23 06/14/23 empagliflozin 25 mg tablet 25 mg PO QAM 04/11/23 06/14/23 (Jardiance) insulin glargine U-300 conc 300 80 unit subcut BEDTIME 06/14/23 06/14/23 unit/mL (1.5 mL) subcutaneous pen (Toujeo SoloStar U-300 Insulin) insulin lispro 100 unit/mL 15 unit subcut TIDAC 06/14/23 06/14/23 subcutaneous pen mirtazapine 15 mg disintegrating 15 mg PO BEDTIME 06/14/23 06/14/23 tablet Previous Rx's ?Medication ?Instructions ?Recorded blood sugar diagnostic (OneTouch #150 ea 04/28/21 Verio test strips) blood-glucose meter (OneTouch #1 ea 04/28/21 Verio Meter) lancets 33 gauge (OneTouch Delica #200 ea 04/28/21 Lancets) carvedilol 6.25 mg tablet (Coreg) 6.25 mg PO BID 90 days #180 tabs 11/08/22 pantoprazole 40 mg tablet,delayed 40 mg PO QAM #90 tabs 02/20/23 release acetaminophen 325 mg tablet 650 mg (2 x 325 mg) PO Q6H PRN 06/18/23 fever of mild pain #1 tab doxycycline monohydrate 100 mg 100 mg PO BID #12 caps 06/18/23 capsule acetaminophen 325 mg capsule 650 mg (2 x 325 mg) PO Q4H PRN 07/07/23 (Tylenol) fever or pain #30 caps Allergies Allergy/AdvReac Type Severity Reaction Status Date / Time No Known Allergies Allergy Mild N/A Verified 07/07/23 09:10 Review of Systems 2 Review of Systems: Yes all other systems are reviewed and are negative [facility] Past Medical History Attestation statement: The following information was validated with the patient. Source: old records reviewed and nursing notes reviewed Medical History NSTEMI (non-ST elevated myocardial infarction) Sepsis Pneumonia Type 2 diabetes mellitus with diabetic polyneuropathy Diverticulosis Erectile dysfunction BPH (benign prostatic hyperplasia) Carpal tunnel syndrome Cataracts, bilateral GERD (gastroesophageal reflux disease) Kidney stones Type 2 diabetes mellitus with chronic kidney disease Chronic kidney disease, stage 3 Type 2 diabetes mellitus with hyperglycemia Essential hypertension Hyperlipidemia LDL goal <70 Surgical History Hx of colonoscopy Hx of lithotripsy Family History Family History Father No problems noted. Mother Diabetes mellitus Brother Diabetes mellitus Sister Diabetes mellitus Social History Social History Household Members: Family Housing: Apartment Do you presently have visiting nurse or other home services: Yes (monthly) Alcohol intake: never Patient Tobacco Use Status: Never used Tobacco Advance Directives: Yes Advance Directives on File: Yes Advance Directives Date on File: 04/11/23 Do you have a plan to hurt others: No Plan service: No Current occupational status: retired Physical Exam 2 Vital Signs: Vital Signs: Last Vital Signs Temp 97.3 F 07/07/23 09:06 Pulse 70 07/07/23 09:06 Resp 16 07/07/23 09:06 BP 137/63 07/07/23 09:06 Pulse Ox 95 07/07/23 09:06 O2 Del Method Room Air 07/07/23 09:06 BMI result Body Mass Index 24.1 vss Appearance: Alert.? Oriented X3.? No acute distress.? Head: Normocephalic, atraumatic, no step-offs or deformities Eyes: Pupils equal, round and reactive to light.? Neck: Normal inspection.? Neck supple.? CVS: Normal heart rate and rhythm.? Pulses normal.? Respiratory: No respiratory distress.? Breath sounds normal.? Abdomen: Soft and nontender.? Skin: Skin warm and dry.? Normal skin color.? Normal skin turgor.? Extremities: No lower extremity edema.? No calf ttp. 5/5 strength to R upper and lower extremities and 4/5 strength to L upper & lower extremities ( this is his baseline) discomfort w/ rom of l knee and left foot/ ankle. No ovelying skin changes to these regions. 2+ DP,AT,PT pulses equal and b/l. Normal sensation distally. There is no tenderness to palpation overlying femur, or tibia or fibula b/l. Only tenderness to palpation overlying left great toe. No overlying skin changes. Back: No midline tenderness, no C-spine tenderness, full range of motion, no CVA tenderness bilaterally Neuro: Oriented X 3.? No motor deficit.? No sensory deficit. CN 2-12 intact normal [id number], [id number]. Negative Romberg negative pronator drift. Course Reevaluation(s) Reevaluation #1: CT head and brain there is a chronic lacunar infarct involving the right now illness otherwise unremarkable no acute territorial infarct or hemorrhage. Left hip no acute fracture dislocation. Mild bilateral hip osteoarthritis, unchanged. Left knee no acute fracture dislocation mild medial patellofemoral compartment osteoarthritis. Left foot no displaced fracture diffuse osteopenia limiting evaluation of nondisplaced fracture foot is tender throughout will put him in a postop shoe. Mild osteoarthritis at the 1st meta tarsal phalangeal joint and hallux sesamoids. Prominent plantar and dorsal calcaneal spurs. CBC no acute findings requiring intervention. 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 Troponin 4.8 EKG nonischemic repeat troponin pending. Plan is for discharge home with PCP and ortho follow-up. Time: 12:19 Reevaluation #2: Repeat troponin negative, EKG nonischemic. No chest pain or shortness of breath. I would like patient to be discharged home with PCP follow-up. Will give Tylenol for pain. Will give postop shoe for left foot as it is uncomfortable likely secondary to contusion. I do not suspect acute arterial or venous occlusion. Palpable pulses in the exam. Medications Administered Discontinued Medications Generic Name Dose Route Start Last Admin Trade Name Freq PRN Reason Stop Dose Admin Acetaminophen 975 mg 07/07/23 12:16 07/07/23 12:43 Acetaminophen 325 Mg Tablet PO 07/07/23 12:17 975 mg ONCE ONE Administration Medical Decision Making Medical Decision Making [facility] Narrative: 0945 77 year old male presents sp fall unclear how , poor historian PE- 5/5 strength to R upper and lower extremities and 4/5 strength to L upper & lower extremities ( this is his baseline) discomfort w/ rom of l knee and left foot/ ankle. No ovelying skin changes to these regions. 2+ DP,AT,PT pulses equal and b/l. Normal sensation distally. There is no tenderness to palpation overlying femur, or tibia or fibula b/l. Only tenderness to palpation overlying left great toe. No overlying skin changes. 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 Unlikely fracture, dislocation no signs of neurovascular compromise, acute threat to limb. Unlikely intracranial hemorrhage, stroke, posterior stroke. No signs of traumatic injury to chest, abdomen or pelvis. Patient not on blood thinners unlikely hematoma. Ligament and tendon injury can not be ruled out at this time however low suspicion for this. Will rule out UTI and metabolic derangements. I do not suspect fracture to femur bilaterally, tibia or fibula. Plan at this time imaging, labs, urine. I did add a UA as patient did smell like urine on exam will rule out UTI. 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 Unlikely fracture, dislocation no signs of neurovascular compromise, acute threat to limb. Unlikely intracranial hemorrhage, stroke, posterior stroke. No signs of traumatic injury to chest, abdomen or pelvis. Patient not on blood thinners unlikely hematoma. Ligament and tendon injury can not be ruled out at this time however low suspicion for this. Will rule out UTI and metabolic derangements. I do not suspect fracture to femur bilaterally, tibia or fibula. Admission/Observation Consideration of admission/observation: Escalation of care including admission/observation considered Possible Lab Data MDM Lab Attestation statement: I reviewed the patient's lab results. 07/07/23 10:38 07/07/23 10:38 Labs: Lab Results 07/07/23 07/07/23 Range/Units 10:38 12:35 WBC 9.6 (4.8-10.8) X10*3/uL RBC 4.84 (4.60-5.80) X10*6/uL Hgb 12.6 L (14.0-18.0) g/dl Hct 40.0 L (42.0-52.0) % MCV 82.6 (80.0-98.0) fL MCH 26.0 L (27.0-33.0) pg MCHC 31.5 (31.0-36.0) g/dl RDW 15.8 (11.0-16.0) % Plt Count 236 D (160-400) X10*3/uL MPV 9.0 L (9.4-12.4) fL Immature Gran % (Auto) 0.4 (0.0-0.4) % Neut % (Auto) 74.9 H (45-73) % Lymph % (Auto) 15.7 L (20-40) % [place] % (Auto) 7.4 (2-11) % Eos % (Auto) 1.3 (0-4) % Baso % (Auto) 0.3 (0-2) % Lymph # (Auto) 1.5 (1.2-4.9) X10*3/uL [place] # (Auto) 0.7 (0.1-1.2) X10*3/uL Eos # (Auto) 0.1 (0.0-0.4) X10*3/uL Baso # (Auto) 0.0 (0.0-0.2) X10*3/uL Abs Immat Gran (auto) 0.04 H (0.00-0.03) X10*3/uL Absolute Neuts (auto) 7.2 (2.0-8.3) x10*3/uL Absolute Nucleated RBC 0.000 (0.0-0.012) X10*3/uL Nucleated RBC % (auto) 0.0 (0.0-0.2) /100WBC Sodium 140 (135-145) mmol/L Potassium 4.4 (3.3-5.1) mmol/L Chloride 105 (96-108) mmol/L Carbon Dioxide 23 (22-29) mmol/L Anion Gap 16 (12-20) BUN 21 H (9-16) mg/dL Creatinine 2.19 H (0.5-1.4) mg/dL Estim Creat Clear Calc 24.9 Estimated GFR 29 Random Glucose 141 H (60-115) mg/dL Calcium 9.3 (8.4-10.2) mg/dL Magnesium 2.4 (1.6-2.6) mg/dL Total Bilirubin 0.6 (0.0-1.0) mg/dL AST 11 (5-37) U/L ALT 6 (0-40) U/L Alkaline Phosphatase 91 (39-117) U/L Troponin I High Sens 4.8 D 5.0 (<3.5-35.0) ng/L Total Protein 8.1 H (6.5-8.0) g/dL Albumin 3.5 (3.5-5.0) g/dL Independent Interpretation I performed an independent interpretation of an: EKG (Vent. Rate : 068 BPM Atrial Rate : 068 BPM P-R Int : 128 ms QRS Dur : 074 ms QT Int : 422 ms P-R-T Axes : 065 074 112 degrees QTc Int : 448 ms Normal sinus rhythm Nonspecific ST abnormality Abnormal ECG When compared with ECG of 15-JUN-2023 09:51, No significant change), Plain X-Ray (XR/XR knee LT 2V IMPRESSION: Left hip and pelvis: No acute fracture or dislocation. Mild bilateral hip osteoarthritis, unchanged. Left Knee: No acute fracture or dislocation. Mild medial and patellofemoral compartment osteoarthritis, unchanged. Left Foot: No displaced fracture. Diffuse osteopeni) and CT Scan (CT/CT head/brain wo IV con IMPRESSION: There is a chronic lacunar infarct involving the right thalamus. Otherwise unremarkable examination. No evidence of acute territorial infarct or hemorrhage. ) Radiology Impression Discussion of test interpretation with radiology: I discussed test interpretation with the radiologist and I have reviewed the radiologist's reading. External Record Review External record reviewed: Inpatient record, Office record, Outpatient record, Prior outpatient labs, Prior outpatient radiology, Primary care record and Outside ED record Chronic Conditions Patient?s care impacted by: Diabetes, Hypertension and Other (stroke ) Critical Care Time Critical Care Time Critical Care Time: No Discharge Plan Discharge Clinical Impression: Acute pain of left knee, Acute pain of left foot, Fall Patient Disposition: Home, Self-Care Instructions: Knee Pain (ED), Arthralgia (ED), Fall Prevention (ED) Additional Instructions: Take your medications as prescribed. If you were prescribed antibiotics today, it is important that you take your medication to their entirety, do not skip any doses, do not finish them early. Follow-up with your primary care provider this week. Return to the emergency department with new or worsening symptoms. Such as fevers, chills, chest pain, shortness of breath, nausea, vomiting, dizziness, headache, vision changes, lethargy In case of emergency call [address] CT/CT head/brain wo IV con IMPRESSION: There is a chronic lacunar infarct involving the right thalamus. Otherwise unremarkable examination. No evidence of acute territorial infarct or hemorrhage. XR/XR knee LT 2V IMPRESSION: Left hip and pelvis: No acute fracture or dislocation. Mild bilateral hip osteoarthritis, unchanged. Left Knee: No acute fracture or dislocation. Mild medial and patellofemoral compartment osteoarthritis, unchanged. Left Foot: No displaced fracture. Diffuse osteopenia somewhat limits evaluation for a nondisplaced fracture. Mild osteoarthritis at the 1st metatarsophalangeal joint and hallux sesamoids. Prominent plantar and dorsal calcaneal spurs. Prescriptions: New acetaminophen [Tylenol] 325 mg capsule 650 mg PO Q4H PRN (Reason: fever or pain) Qty: 30 0RF No Action (DME) blood-glucose meter [OneTouch Verio Meter] [facility] See Rx Instructions .ROUTE .MEDSUPPLY Qty: 1 0RF Rx Instructions: As directed 4x/day (DME) OneTouch Verio test strips Strip See Rx Instructions .ROUTE .MEDSUPPLY Qty: 150 11RF Rx Instructions: 4 x/day (DME) lancets [OneTouch Delica Lancets] 33 gauge [facility] See Rx Instructions .ROUTE .MEDSUPPLY Qty: 200 10RF Rx Instructions: four times a day pantoprazole 40 mg tablet,delayed release (DR/EC) 40 mg PO QAM Qty: 90 1RF Dry Eye Relief 1-0.2-0.2 % Drops 1 drp OPHTHALMIC (EYE) BID PRN (Reason: Dry Eye(S)) insulin lispro 100 unit/mL insulin pen 15 unit subcut TIDAC Rx Instructions: 15 units with breakfast and lunch and 15 units with dinner subcutaneously; mirtazapine 15 mg tablet,disintegrating 15 mg PO BEDTIME insulin glargine U-300 conc [Toujeo SoloStar U-300 Insulin] 300 unit/mL (1.5 mL) insulin pen 80 unit subcut BEDTIME acetaminophen 325 mg Tablet 650 mg PO Q6H PRN (Reason: fever of mild pain) Qty: 1 0RF doxycycline monohydrate 100 mg Capsule 100 mg PO BID Qty: 12 0RF amlodipine [Norvasc] 5 mg tablet 5 mg PO BEDTIME tramadol 50 mg tablet 25 mg PO DAILY PRN (Reason: severe pain) gabapentin 300 mg capsule 300 mg PO BEDTIME Jardiance 25 mg tablet 25 mg PO QAM (DME) pen needle, diabetic [Pentips] 32 gauge x needle See Rx Instructions .ROUTE .MEDSUPPLY Qty: 50 Rx Instructions: As directed 4 TIMES A DAY furosemide 20 mg tablet 20 mg PO Q48H carvedilol [Coreg] 6.25 mg tablet 6.25 mg PO BID 90 Days Qty: 180 3RF Rx Instructions: must administer with a meal/food Referrals: [facility] [place] [facility] [Provider Group] - 2 days Physician,Unknown J [Primary Care Provider] - 2 days Stand Alone Forms: Work/School Release Print Language: Syriac
[2023-07-07 10:43] LABS: MANUAL DIFF FLAG NO
[2023-07-07 10:44] LABS: Basophils Percent Auto 0.3 % (0-2); Eosinophils Absolute Auto 0.1 X10*3/uL (0.0-0.4); Eosinophils Percent Auto 1.3 % (0-4); Hemoglobin 12.6 g/dl (14.0-18.0); Imm Gran Abs Auto 0.04 X10*3/uL (0.00-0.03); Imm Gran Pct Auto 0.4 % (0.0-0.4); Lymphocytes Absolute Auto 1.5 X10*3/uL (1.2-4.9); Lymphocytes Percent Auto 15.7 % (20-40); Mean Corpuscular HGB Conc 31.5 g/dl (31.0-36.0); Mean Corpuscular Volume 82.6 fL (80.0-98.0); Monocytes Absolute Auto 0.7 X10*3/uL (0.1-1.2); Monocytes Percent Auto 7.4 % (2-11); Neutrophils Absolute Auto 7.2 x10*3/uL (2.0-8.3); Neutrophils Percent Auto 74.9 % (45-73); Platelet Count 236 X10*3/uL (160-400); Red Blood Count 4.84 X10*6/uL (4.60-5.80); Red Cell Distribution Width 15.8 % (11.0-16.0); White Blood Count 9.6 X10*3/uL (4.8-10.8)
[2023-07-07 11:13] LABS: Alanine Aminotransferase 6 U/L (0-40); Albumin Level 3.5 g/dL (3.5-5.0); Alkaline Phosphatase 91 U/L (39-117); Anion Gap 16 (12-20); Aspartate Amino Transferase 11 U/L (5-37); Bilirubin Total 0.6 mg/dL (0.0-1.0); Blood Urea Nitrogen 21 mg/dL (9-16); Calcium 9.3 mg/dL (8.4-10.2); Carbon Dioxide 23 mmol/L (22-29); Chloride 105 mmol/L (96-108); Creatinine Clr Calc Pharmacy 24.9; Estimated Glomerular Filt Rate 29; Glucose Random 141 mg/dL (60-115); Magnesium 2.4 mg/dL (1.6-2.6); Potassium 4.4 mmol/L (3.3-5.1); Sodium 140 mmol/L (135-145); Total Protein 8.1 g/dL (6.5-8.0)
[2023-07-07 11:20] LABS: Troponin-I High Sensitivity 4.8 ng/L (<3.5-35.0)
[2023-07-07] MEDS: Acetaminophen 325 MG TABLET 975 MG PO (12:43)
== END 2023-07-07 17:55 | disposition skilled nursing facility (03) ==
PROVIDERS: Physician Assistant; Emergency Provider Emergency Medicine
DX: M25.552 Pain in left hip (principal); M79.672 Pain in left foot; M25.562 Pain in left knee; Z91.81 History of falling
CPT/HCPCS: 36415; 70450; 73502; 73560; 73620; 80053; 83735; 84484; 85025; 93005; 99284

== ENCOUNTER → 2023-07-07 09:52 | Outpatient (BNV) | payer OTHER, SELFPAY | PROVIDERS: Emergency Provider Emergency Medicine; Visit Provider Internal Medicine Cardiovascular Disease | DX: R94.31 Abnormal electrocardiogram [ECG] [EKG] (principal) | CPT/HCPCS: 93010 ==

== ENCOUNTER 2023-09-03 10:48 | Emergency (ER) | payer OTHER, SELFPAY ==
[2023-09-03 10:56] VITALS: BP 118/54; PULSE 80; O2SAT 94
[2023-09-03 11:06] VITALS: BP 129/61; PULSE 77; RESP 16; O2SAT 96; BMI 23.6
[2023-09-03 12:13] LABS: MANUAL DIFF FLAG NO
[2023-09-03 12:17] LABS: Basophils Percent Auto 0.2 % (0-2); Eosinophils Absolute Auto 0.2 X10*3/uL (0.0-0.4); Eosinophils Percent Auto 1.5 % (0-4); Hematocrit 35.4 % (42.0-52.0); Imm Gran Abs Auto 0.06 X10*3/uL (0.00-0.03); Imm Gran Pct Auto 0.5 % (0.0-0.4); Lymphocytes Absolute Auto 1.9 X10*3/uL (1.2-4.9); Lymphocytes Percent Auto 14.8 % (20-40); Mean Corpuscular HGB Conc 31.1 g/dl (31.0-36.0); Mean Corpuscular Volume 83.7 fL (80.0-98.0); Mean Platelet Volume 9.2 fL (9.4-12.4); Monocytes Absolute Auto 0.9 X10*3/uL (0.1-1.2); Monocytes Percent Auto 7.2 % (2-11); Neutrophils Absolute Auto 9.9 x10*3/uL (2.0-8.3); Neutrophils Percent Auto 75.8 % (45-73); Platelet Count 256 X10*3/uL (160-400); Red Blood Count 4.23 X10*6/uL (4.60-5.80); Red Cell Distribution Width 18.6 % (11.0-16.0); White Blood Count 13.1 X10*3/uL (4.8-10.8)
[2023-09-03 12:26] VITALS: BP 127/58; PULSE 72; RESP 12; O2SAT 96
--- NOTE | 2023-09-03 12:29 | ED.GENADULT ---
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 2 he wants to go to [facility] he notes that he wants to get stronger and he and his feel he needs rehab he wants to go to [facility]. complaint: toe infection Onset (ago): week(s) (1) Location: left and lower extremity Radiation: non-radiation Severity: mild Quality: aching Pain Consistency: intermittent Relieving factors: rest Exacerbating factors: movement Associated symptoms: denies other symptoms Treatments prior to arrival: none Related Data Home Medications ?Medication ?Instructions ?Recorded ?Confirmed peg [id number] 1 1 drp ophthalmic (eye) BID PRN Dry 11/01/21 06/14/23 %-0.2 %-0.2 % eye drops (Dry Eye Eye(S) Relief) furosemide 20 mg tablet 20 mg PO Q48H 03/29/22 06/14/23 pen needle, diabetic 32 gauge x #50 ea 03/29/22 11/08/2232 (Pentips) amlodipine 5 mg tablet (Norvasc) 5 mg PO BEDTIME 04/10/23 06/14/23 gabapentin 300 mg capsule 300 mg PO BEDTIME 04/10/23 06/14/23 tramadol 50 mg tablet 25 mg PO DAILY PRN severe pain 04/10/23 06/14/23 empagliflozin 25 mg tablet 25 mg PO QAM 04/11/23 06/14/23 (Jardiance) insulin glargine U-300 conc 300 80 unit subcut BEDTIME 06/14/23 06/14/23 unit/mL (1.5 mL) subcutaneous pen (Toujeromy SoloStar U-300 Insulin) insulin lispro 100 unit/mL 15 unit subcut TIDAC 06/14/23 06/14/23 subcutaneous pen mirtazapine 15 mg disintegrating 15 mg PO BEDTIME 06/14/23 06/14/23 tablet Previous Rx's ?Medication ?Instructions ?Recorded blood sugar diagnostic (OneTouch #150 ea 04/28/21 Verio test strips) blood-glucose meter (OneTouch #1 ea 04/28/21 Verio Meter) lancets 33 gauge (OneTouch Delica #200 ea 04/28/21 Lancets) carvedilol 6.25 mg tablet (Coreg) 6.25 mg PO BID 90 days #180 tabs 11/08/22 pantoprazole 40 mg tablet,delayed 40 mg PO QAM #90 tabs 02/20/23 release acetaminophen 325 mg tablet 650 mg (2 x 325 mg) PO Q6H PRN 06/18/23 fever of mild pain #1 tab doxycycline monohydrate 100 mg 100 mg PO BID #12 caps 06/18/23 capsule acetaminophen 325 mg capsule 650 mg (2 x 325 mg) PO Q4H PRN 07/07/23 (Tylenol) fever or pain #30 caps Allergies Allergy/AdvReac Type Severity Reaction Status Date / Time No Known Allergies Allergy Mild N/A Verified 09/03/23 11:11 Review of Systems Review of Systems: Constitutional : No Fever, No Chills, No Fatigue ENT/Mouth : No sore throat, No Rhinorrhea Eyes: No Eye Pain, No Swelling, No Redness Cardiovascular : No Chest Pain, No SOB, No Dyspnea on Exertion Respiratory : No Cough, No Sputum Gastrointestinal : No Nausea, No Vomiting, No Diarrhea, No abdominal Pain Genitourinary : No Dysuria, No Urinary Frequency, No Hematuria, Musculoskeletal : No Myalgias, No Joint Swelling, pos toe pain Skin : pos Skin Lesions, No rash Neuro : No Weakness, No Numbness, No Dizziness, no Headache Psych : No Anxiety/Panic, No Depression All other systems reviewed and are negative [facility] Past Medical History Attestation statement: The following information was validated with the patient. Source: old records reviewed Medical History NSTEMI (non-ST elevated myocardial infarction) Sepsis Pneumonia Type 2 diabetes mellitus with diabetic polyneuropathy Diverticulosis Erectile dysfunction BPH (benign prostatic hyperplasia) Carpal tunnel syndrome Cataracts, bilateral GERD (gastroesophageal reflux disease) Kidney stones Type 2 diabetes mellitus with chronic kidney disease Chronic kidney disease, stage 3 Type 2 diabetes mellitus with hyperglycemia Essential hypertension Hyperlipidemia LDL goal <70 Surgical History Hx of colonoscopy Hx of lithotripsy Family History Family History Father No problems noted. Mother Diabetes mellitus Brother Diabetes mellitus Sister Diabetes mellitus Social History Social History Household Members: Family Housing: Apartment Do you presently have visiting nurse or other home services: Yes (monthly) Alcohol intake: never Patient Tobacco Use Status: Never used Tobacco Smoked in Last 30 Days: No Use of substances other than those prescribed or required for medical reasons: No Advance Directives: Yes Advance Directives on File: Yes Advance Directives Date on File: 04/11/23 Do you have a plan to hurt others: No Plan service: No Current occupational status: retired Physical Exam ED Vital Signs: Vital Signs - 24 hr 09/03/23 11:06 09/03/23 12:26 Pulse Rate 77 72 Respiratory Rate 16 12 Blood Pressure 129/61 127/58 L Pulse Oximetry 96 96 Oxygen Delivery Method Room Air Room Air BMI result Body Mass Index 23.6 Appearance: Alert. Oriented X3. No acute distress. Eyes: Pupils equal, round and reactive to light. ENT: Pharynx normal. Neck: Normal inspection. Neck supple. CVS: Normal heart rate and rhythm. Pulses normal. Respiratory: No respiratory distress. Breath sounds normal. Abdomen: Soft and nontender. Skin: Skin warm and dry. Normal skin color. Normal skin turgor. Extremities: No lower extremity edema. L great toe - ingrown toenail lateral nail fold mild redness ttp no purulence no fluctuance Neuro: Oriented X 3. mild L sided chronic weakness. No sensory deficit. Procedures Procedure Narrative Procedure Narrative: cleansed with betadine verbal consent easily lifted and removed embedded lateral nail from nail fold and cut down and pulled away the nail without bleeding or issue tolerated well covered with bacitracin. Medical Decision Making Medical Decision Making MDM Narrative: 77 yo male with CKD, DM2, HTN, HLD, CVA L sided hemiparesis, GERD here with c/o L ingrown toenail and states he needs to go to rehab he cannot care for himself at this time will obtain basic labs, remove part of toenail that is bothering him and then start on cephalexin refer to PT/CM. No signs of abscess on exam. No fevers reported. Doubt osteo Differential Diagnosis Differential Diagnoses: The differential diagnosis associated with the presentation includes ingrown toenail, FTT Admission/Observation Consideration of admission/observation: Escalation of care including admission/observation considered physician observation started at 1240pm pending PT/CM Consult Healthcare Provider Management of the patient was discussed with: Hand Shoes Sewer Lab Data MDM Lab Attestation statement: I reviewed the patient's lab results. 09/03/23 12:09 09/03/23 12:09 Labs: Lab Results 09/03/23 Range/Units 12:09 WBC 13.1 H (4.8-10.8) X10*3/uL RBC 4.23 L (4.60-5.80) X10*6/uL Hgb 11.0 L (14.0-18.0) g/dl Hct 35.4 L (42.0-52.0) % MCV 83.7 (80.0-98.0) fL MCH 26.0 L (27.0-33.0) pg MCHC 31.1 (31.0-36.0) g/dl RDW 18.6 H (11.0-16.0) % Plt Count 256 (160-400) X10*3/uL MPV 9.2 L (9.4-12.4) fL Immature Gran % (Auto) 0.5 H (0.0-0.4) % Neut % (Auto) 75.8 H (45-73) % Lymph % (Auto) 14.8 L (20-40) % [place] % (Auto) 7.2 (2-11) % Eos % (Auto) 1.5 (0-4) % Baso % (Auto) 0.2 (0-2) % Lymph # (Auto) 1.9 (1.2-4.9) X10*3/uL [place] # (Auto) 0.9 (0.1-1.2) X10*3/uL Eos # (Auto) 0.2 (0.0-0.4) X10*3/uL Baso # (Auto) 0.0 (0.0-0.2) X10*3/uL Abs Immat Gran (auto) 0.06 H (0.00-0.03) X10*3/uL Absolute Neuts (auto) 9.9 H (2.0-8.3) x10*3/uL Absolute Nucleated RBC 0.000 (0.0-0.012) X10*3/uL Nucleated RBC % (auto) 0.0 (0.0-0.2) /100WBC Independent Historian Clinical information obtained from an independent historian. History obtained from or confirmed by: EMS External Record Review External record reviewed: Inpatient record Discharge Plan Discharge Clinical Impression: Ingrowing toenail with infection, Adult failure to thrive Patient Disposition: Still a Patient Prescriptions: No Action (DME) blood-glucose meter [OneTouch Verio Meter] Misc See Rx Instructions .ROUTE .MEDSUPPLY Qty: 1 0RF Rx Instructions: As directed 4x/day (DME) OneTouch Verio test strips Strip See Rx Instructions .ROUTE .MEDSUPPLY Qty: 150 11RF Rx Instructions: 4 x/day (DME) lancets [OneTouch Delica Lancets] 33 gauge misc See Rx Instructions .ROUTE .MEDSUPPLY Qty: 200 10RF Rx Instructions: four times a day pantoprazole 40 mg tablet,delayed release (DR/EC) 40 mg PO QAM Qty: 90 1RF Dry Eye Relief 1-0.2-0.2 % Drops 1 drp OPHTHALMIC (EYE) BID PRN (Reason: Dry Eye(S)) insulin lispro 100 unit/mL insulin pen 15 unit subcut TIDAC Rx Instructions: 15 units with breakfast and lunch and 15 units with dinner subcutaneously; mirtazapine 15 mg tablet,disintegrating 15 mg PO BEDTIME insulin glargine U-300 conc [Toujeo SoloStar U-300 Insulin] 300 unit/mL (1.5 mL) insulin pen 80 unit subcut BEDTIME acetaminophen 325 mg Tablet 650 mg PO Q6H PRN (Reason: fever of mild pain) Qty: 1 0RF doxycycline monohydrate 100 mg Capsule 100 mg PO BID Qty: 12 0RF acetaminophen [Tylenol] 325 mg capsule 650 mg PO Q4H PRN (Reason: fever or pain) Qty: 30 0RF amlodipine [Norvasc] 5 mg tablet 5 mg PO BEDTIME tramadol 50 mg tablet 25 mg PO DAILY PRN (Reason: severe pain) gabapentin 300 mg capsule 300 mg PO BEDTIME Jardiance 25 mg tablet 25 mg PO QAM (DME) pen needle, diabetic [Pentips] 32 gauge x 5/32 needle See Rx Instructions .ROUTE .MEDSUPPLY Qty: 50 Rx Instructions: As directed 4 TIMES A DAY furosemide 20 mg tablet 20 mg PO Q48H carvedilol [Coreg] 6.25 mg tablet 6.25 mg PO BID 90 Days Qty: 180 3RF Rx Instructions: must administer with a meal/food Print Language: Luxembourger
[2023-09-03] MEDS: Acetaminophen 325 MG TABLET 650 MG PO (12:30)
[2023-09-03] MEDS: Bacitracin Oint 0.9 GM PACKET 1 APPL TOPICAL (12:30)
[2023-09-03] MEDS: cephALEXin 500 MG CAPSULE PO (12:31)
[2023-09-03 12:36] LABS: Alanine Aminotransferase < 5 U/L (0-40); Albumin Level 3.2 g/dL (3.5-5.0); Alkaline Phosphatase 88 U/L (39-117); Anion Gap 14 (12-20); Aspartate Amino Transferase 8 U/L (5-37); Bilirubin Direct 0.3 mg/dL (0.0-0.5); Bilirubin Total 0.8 mg/dL (0.0-1.0); Blood Urea Nitrogen 17 mg/dL (9-16); Calcium 8.6 mg/dL (8.4-10.2); Carbon Dioxide 23 mmol/L (22-29); Chloride 104 mmol/L (96-108); Creatinine Clr Calc Pharmacy 26.7; Estimated Glomerular Filt Rate 32; Glucose Random 196 mg/dL (60-115); Magnesium 2.2 mg/dL (1.6-2.6); Potassium 3.9 mmol/L (3.3-5.1); Sodium 137 mmol/L (135-145); Total Protein 7.3 g/dL (6.5-8.0)
[2023-09-03 12:43] LABS: Appearance Urine Cloudy; Color Urine Yellow; Glucose Urine UA >=1000 mg/dL (Negative); Leukocyte Esterase Urine Large (3+) (Negative); Nitrite Urine Negative (Negative); Specific Gravity - Urine 1.015 (1.005-1.025); UMIC TRIGGER UACC YES; Urine Blood Small (1+) (Negative); Urine Ketones Negative (Negative); Urine Protein 30 (1+) mg/dL (Neg-Trace)
[2023-09-03 12:57] LABS: COVID-19 Test Negative (Negative); IDNOW Serial# 152EDE1D
[2023-09-03 13:02] LABS: Bacteria Urine None Seen (None Seen); Hyaline Casts Urine 0-2 /LPF (0-2); RBC Urine 0-2 /HPF (0-2); Squamous Epithelial Cell Urine 0-2 /HPF (0-2); UACC Culture Trigger YES; WBC Urine >50 /HPF (0-5)
[2023-09-03 14:51] VITALS: BP 100/51; PULSE 62; RESP 15; O2SAT 96
--- NOTE | 2023-09-03 14:57 | PC.NURSE ---
Patient does not know his home meds, daughter to bring in list later today.
[2023-09-03 15:04] LABS: Glucose, Whole Blood 98 mg/dL (60-115)
[2023-09-03 17:28] LABS: Glucose, Whole Blood 127 mg/dL (60-115)
--- NOTE | 2023-09-03 17:58 | PC.NURSE ---
Spoke to patient's daughter Arianne, states his is coming in this evening w/ med list.
--- NOTE | 2023-09-03 18:35 | PC.NURSE ---
Gave report to overflow RN, transport to bring over.
[2023-09-03 19:05] VITALS: BP 127/70; PULSE 66; RESP 15; TEMP 36.7; O2SAT 94
--- NOTE | 2023-09-03 19:06 | MHC.CM.ED ---
CM received consult from Dr. Holman. Pt is awaiting PT evaluation. Will remain overnight. Pt is Telugu speaking. flight data technician used. Pt lives with his . He uses a walker. HCP is on file. #1HCP/ Pedrito Yuan ([phone]) and HCP#2/daughter Hue Jaramillo ([phone]). Pt is requesting additional STR. Was at [place] for a month. Pt would like to go to [facility]. CM explained that it's up to the insurance company, as they have to approve the therapy and they must be contracted by the insurance company.CM will make local referrals to STR. Pt will be moved to the over flow unit for comfort. CM will follow for discharge planning.
[2023-09-03 20:06] LABS: Glucose, Whole Blood 181 mg/dL (60-115)
[2023-09-03 20:11] VITALS: BP 150/69; PULSE 67; RESP 20; TEMP 36.7; O2SAT 95
[2023-09-03] MEDS: cephALEXin 5,000 MG/100 ML BOTTLE 250 MG PO (20:42)
[2023-09-04 04:59] VITALS: BP 131/69; PULSE 70; RESP 16; TEMP 36.6; O2SAT 94
--- NOTE | 2023-09-04 05:55 | PC.NURSE ---
Assumed care of patient at 2300. Patient is alert, oriented, mosotho speaking. Offers no complaints at this time, urinal at bedside. Callbell within reach. Patient slept most of the night.
[2023-09-04 07:04] LABS: Glucose, Whole Blood 144 mg/dL (60-115)
[2023-09-04 09:05] VITALS: BP 131/69; PULSE 71
--- NOTE | 2023-09-04 11:41 | MHC.CM.ED ---
Patient remains in ER overflow. Physical therapy eval completed. Short term rehab is recommended. [facility], [facility], [facility], [facility] and [facility] [address] are able to offer a bed. These options were discussed with patient and daughter, Arianne. [facility] is now 1st choice since [facility] not contracted with [facility]. [facility] is in the process of obtaining insurance auth. Continue to monitor for d/c needs.
[2023-09-04 12:32] LABS: Glucose, Whole Blood 288 mg/dL (60-115)
[2023-09-04] MEDS: cephALEXin 5,000 MG/100 ML BOTTLE 250 MG PO ×2 (12:51→20:44)
[2023-09-04 16:12] VITALS: BP 137/69; PULSE 70; RESP 17; TEMP 36.8; O2SAT 96
[2023-09-04 16:13] LABS: Glucose, Whole Blood 278 mg/dL (60-115)
[2023-09-04] MEDS: Gabapentin 300 MG CAPSULE PO (20:45)
[2023-09-04] MEDS: Insulin Glargine,Hum.rec.anlog 100 UNIT/ML 10 ML VIAL 64 UNIT SUBCUT (20:45)
[2023-09-04] MEDS: Mirtazapine 15 MG TABLET PO (20:45)
[2023-09-04 20:47] LABS: Glucose, Whole Blood 260 mg/dL (60-115)
[2023-09-04 22:00] VITALS: BP 134/65; PULSE 72; RESP 16; O2SAT 96
[2023-09-05 05:27] VITALS: BP 139/61; PULSE 68; RESP 16; TEMP 36.3; O2SAT 96
[2023-09-05] MEDS: Omeprazole 20 MG CAPSULE.DR PO (05:39)
--- NOTE | 2023-09-05 05:46 | PC.NURSE ---
CARE ASSUMED 7PM..ALERT..ORIENTED X3..HOLLAND...LEFT LARGE TOE WITH IN-GROWN TOE-NAIL...VOIDED 750ML CLEAR YELLOW URINE IN URINAL OVERNIGHT..DRINKING H20 W/O DIFFICULTY..RESPIRATIONS EASY..REPOSITIONS SELF AD-LYNNE..DENIES/OFFERS NO COMPLAINTS
[2023-09-05 07:41] LABS: Glucose, Whole Blood 149 mg/dL (60-115)
[2023-09-05] MEDS: Empagliflozin 25 MG TABLET PO (08:17)
[2023-09-05] MEDS: Insulin Lispro 100 UNIT/ML 3 ML VIAL 15 UNIT SUBCUT ×3 (08:18→17:31)
[2023-09-05] MEDS: cephALEXin 5,000 MG/100 ML BOTTLE 250 MG PO ×2 (08:20→22:12)
[2023-09-05 11:34] LABS: Glucose, Whole Blood 187 mg/dL (60-115)
--- NOTE | 2023-09-05 12:43 | MHC.CM.ED ---
Addendum entered by Kim Carroll 09/06/23 13:49: Insurance auth has been obtained. Patient can leave at 4pm. [facility] LARES booked. Med [facility] with chart. Patient, Lydia FENTON and Geri SANCHEZ aware. Attempted to notify patient's daughter, Arianne, via telephone at [phone]. Left message requesting return telephone call. Original Note: Patient remains in ER overflow. Still waiting for insurance auth from [facility]. Continue to monitor for d/c needs.
--- NOTE | 2023-09-05 14:33 | PC.NURSE ---
Daughter assisted patient to shower, ate well for lunch. no s/s of hypo/hyperglycemia
[2023-09-05 15:35] VITALS: BP 120/63; PULSE 78; RESP 16; TEMP 36.8; O2SAT 97
[2023-09-05 16:14] LABS: Glucose, Whole Blood 142 mg/dL (60-115)
--- NOTE | 2023-09-05 16:14 | PC.NURSE ---
Daughter requesting update on STR placement , case management aware stating will call daughter.
--- NOTE | 2023-09-05 17:32 | PC.NURSE ---
Ate well for dinner, denies pain or discomfort, no s/s of hypoglycemia / hyperglycemia
[2023-09-05 21:24] LABS: Glucose, Whole Blood 40 mg/dL (60-115)
[2023-09-05] MEDS: Mirtazapine 15 MG TABLET PO (21:27)
[2023-09-05] MEDS: Gabapentin 300 MG CAPSULE PO (21:27)
--- NOTE | 2023-09-05 21:35 | PC.NURSE ---
Informed DANIEL Willoughby that PT FSBS was 40 and was told to hold the Long acting insulin for tonight, and they would reasses in AM. Pt is alert and oriented, pt was given OJ and some pudding. Will recheck BS in 15 minutes
[2023-09-05 21:48] LABS: Glucose, Whole Blood 69 mg/dL (60-115)
[2023-09-05 22:00] VITALS: BP 135/64; PULSE 80; RESP 18; O2SAT 95
[2023-09-05 22:29] LABS: Glucose, Whole Blood 103 mg/dL (60-115)
[2023-09-06] MEDS: Omeprazole 20 MG CAPSULE.DR PO (05:43)
[2023-09-06 05:45] VITALS: BP 139/70; PULSE 79; RESP 17; TEMP 36.7; O2SAT 97
[2023-09-06 07:28] LABS: Glucose, Whole Blood 179 mg/dL (60-115)
--- NOTE | 2023-09-06 08:18 | PC.NURSE ---
This nurse messaged ED provider to review the patients DM medications as they were hypo last night. Per provider verbal request, AM lispro has been held.
--- NOTE | 2023-09-06 08:19 | PC.NURSE ---
called pharmacy for missing med
--- NOTE | 2023-09-06 10:14 | PC.NURSE ---
patient awake, alert to self, pt medicated crushed in applesauce, pt bed alarm/camera intact, goodman cath patient/draining covid precautions intact, lungs clear/diminished, rr equal/non labored, pt to dc to facility, report given to filemon on west 2 unit
[2023-09-06 10:22] VITALS: BP 139/70
[2023-09-06] MEDS: Empagliflozin 25 MG TABLET PO (10:22)
[2023-09-06] MEDS: Furosemide 20 MG TABLET PO (10:22)
[2023-09-06] MEDS: cephALEXin 5,000 MG/100 ML BOTTLE 250 MG PO (10:23)
--- NOTE | 2023-09-06 10:27 | PC.NURSE ---
patient a&ox3, independent eating/using urinal, bed alarm intact for patient safety. pt denying pain discomfort, lungs clear, rr equal/non labored, pt medicated per order, call blum within reach, will continue to monitor
[2023-09-06 12:10] LABS: Glucose, Whole Blood 186 mg/dL (60-115)
--- NOTE | 2023-09-06 12:13 | PC.NURSE ---
this nurse obtained pts POC for lunch and reported to ED provider Geri, it was decided to hold the lunch time dose of 10 U insulin.
[2023-09-06 13:57] VITALS: BP 131/77; PULSE 82; RESP 18; TEMP 36.7; O2SAT 96
[2023-09-06 16:25] LABS: Glucose, Whole Blood 210 mg/dL (60-115)
[2023-09-06] MEDS: Insulin Lispro 100 UNIT/ML 3 ML VIAL 10 UNIT SUBCUT (17:08)
--- NOTE | 2023-09-06 17:26 | PC.NURSE ---
this nurse called [facility] to give report, phone was answered by male certified legal secretary specialist who stated pt was going to unit 4 and would transfer me. I was transferred and got an answering machine, I left a message stating to call C back if they wish to have report. ambulance crew from [facility] was notified of this as well.
[2023-09-06 17:41] VITALS: BP 132/76; PULSE 78; RESP 18; TEMP 36.7; O2SAT 97
== END 2023-09-06 17:42 ==
PROVIDERS: Emergency Provider Emergency Medicine; PCP Family Medicine
DX: L60.0 Ingrowing nail (principal); I13.0 Hypertensive heart and chronic kidney disease with heart failure and stage 1 through stage 4 chronic kidney disease, or unspecified chronic kidney disease; E11.22 Type 2 diabetes mellitus with diabetic chronic kidney disease; N18.2 Chronic kidney disease, stage 2 (mild); R26.2 Difficulty in walking, not elsewhere classified; Z79.4 Long term (current) use of insulin; Z86.73 Personal history of transient ischemic attack (TIA), and cerebral infarction without residual deficits; Z79.899 Other long term (current) drug therapy; Z03.818 Encounter for observation for suspected exposure to other biological agents ruled out; Z11.52 Encounter for screening for COVID-19
CPT/HCPCS: 11750; 36415; 80048; 80076; 81001; 82947; 83735; 85025; 87086; 87635; 97162; 99285

== ENCOUNTER 2023-09-13 22:09 | Emergency (ER) | payer OTHER, SELFPAY ==
--- NOTE | ~2023-09-13 | CT_ITS ---
EXAMINATION: NONCONTRAST HEAD CT NONCONTRAST CERVICAL SPINE CT INDICATION INFORMATION: Fall with head strike COMPARISON: 07/07/2023 TECHNIQUE: Separate noncontrast CT examinations of the head and cervical spine were performed. Coronal head CT images and coronal and sagittal cervical spine images were created at the technologist workstation. DLP: 1644 mGy-cm DOSE LOWERING TECHNIQUES: This CT examination was performed using dose optimization techniques as appropriate, variously including the following: - Automated exposure control - Adjustment of mA and/or kV according to patient size (this includes techniques or standardized protocols for targeted exams were dose is matched to indication/reason for exam; i.e. extremities or head) - Use of iterative reconstruction technique FINDINGS: Head: There is no evidence of acute intracranial hemorrhage or territorial infarction. No abnormal mass-effect or midline shift is seen. Reed to white matter differentiation is well preserved. No extra-axial fluid collections are identified. The ventricles are normal in size. Redemonstrated region of chronic infarct in the right thalamus. There is mild periventricular white matter hypoattenuation consistent with chronic small vessel ischemic disease. Moderate volume loss is noted. The osseous structures and soft tissues are normal. The mastoid air cells and visualized portions of the paranasal sinuses are well-aerated. Cervical spine: There is degenerative change at the atlantodens articulation. There is anatomic alignment of the vertebral bodies and posterior elements. Vertebral body heights are maintained. Intervertebral disc spaces are relatively well-preserved. Endplate osteophytes of the mid to lower cervical spine. There is moderate to severe bilateral facet arthropathy. No evidence of acute fracture. No prevertebral soft tissue swelling. Visualized portions of the lung apices are unremarkable. The thyroid gland is unremarkable. CT/CT cervical spine wo IV con IMPRESSION: HEAD: No acute intracranial findings. Chronic appearing changes as noted above. CERVICAL SPINE: No acute findings identified. Degenerative changes as noted above.
[2023-09-13 22:16] VITALS: BP 118/72; BP 128/61; PULSE 80; PULSE 82; RESP 16; TEMP 37.2; O2SAT 96; O2SAT 97; BMI 25.0
--- NOTE | 2023-09-13 22:17 | ECG_ITS ---
Test Reason : FALL Blood Pressure : / mmHG Vent. Rate : 078 BPM Atrial Rate : 078 BPM P-R Int : 138 ms QRS Dur : 076 ms QT Int : 386 ms P-R-T Axes : 038 081 088 degrees QTc Int : 440 ms Normal sinus rhythm Nonspecific ST abnormality Abnormal ECG When compared with ECG of 07-JUL-2023 10:41, No significant change was found Referred By: Generic ED Physician Electronically Signed By:MARISOL MONTILLA
[2023-09-13 22:29] LABS: MANUAL DIFF FLAG NO
[2023-09-13 22:33] LABS: Basophils Percent Auto 0.3 % (0-2); Eosinophils Absolute Auto 0.3 X10*3/uL (0.0-0.4); Eosinophils Percent Auto 2.8 % (0-4); Hematocrit 37.1 % (42.0-52.0); Hemoglobin 11.6 g/dl (14.0-18.0); Imm Gran Abs Auto 0.03 X10*3/uL (0.00-0.03); Imm Gran Pct Auto 0.3 % (0.0-0.4); Lymphocytes Absolute Auto 2.1 X10*3/uL (1.2-4.9); Lymphocytes Percent Auto 22.6 % (20-40); Mean Corpuscular HGB Conc 31.3 g/dl (31.0-36.0); Mean Corpuscular Hemoglobin 25.8 pg (27.0-33.0); Mean Corpuscular Volume 82.6 fL (80.0-98.0); Mean Platelet Volume 9.6 fL (9.4-12.4); Monocytes Absolute Auto 0.6 X10*3/uL (0.1-1.2); Monocytes Percent Auto 6.3 % (2-11); Neutrophils Absolute Auto 6.4 x10*3/uL (2.0-8.3); Neutrophils Percent Auto 67.7 % (45-73); Platelet Count 317 X10*3/uL (160-400); Red Blood Count 4.49 X10*6/uL (4.60-5.80); Red Cell Distribution Width 17.4 % (11.0-16.0); White Blood Count 9.4 X10*3/uL (4.8-10.8)
[2023-09-13 22:55] LABS: Troponin-I High Sensitivity 5.4 ng/L (<3.5-35.0)
[2023-09-13 22:57] LABS: Alanine Aminotransferase < 5 U/L (0-40); Albumin Level 3.5 g/dL (3.5-5.0); Alkaline Phosphatase 85 U/L (39-117); Anion Gap 19 (12-20); Aspartate Amino Transferase 9 U/L (5-37); Bilirubin Total 0.4 mg/dL (0.0-1.0); Blood Urea Nitrogen 18 mg/dL (9-16); Calcium 9.4 mg/dL (8.4-10.2); Carbon Dioxide 18 mmol/L (22-29); Chloride 106 mmol/L (96-108); Creatinine Clr Calc Pharmacy 24.3; Estimated Glomerular Filt Rate 31; Glucose Random 211 mg/dL (60-115); Potassium 3.8 mmol/L (3.3-5.1); Sodium 139 mmol/L (135-145); Total Protein 7.8 g/dL (6.5-8.0)
[2023-09-13 23:19] LABS: Prothrombin Time 11.9 SEC (11.1-13.3)
--- NOTE | 2023-09-13 23:59 | ED_ITS ---
HPI - General Adult General Chief complaint: Fall Stated complaint: mechanical fall w/ head strike Time Seen by Provider: 09/13/23 22:56 Source: patient, family (Patient's ), RN notes reviewed, old records reviewed and certified court interpreter Mode of arrival: EMS Limitations: language barrier History of Present Illness ED Provider: Tracee HPI narrative: 77-year-old male past medical history significant for diabetes, hypertension, chronic kidney disease, hyperlipidemia, previous CVA presents for evaluation after a fall The patient was resting on his bed when he attempted to get up to talk with his who was in the shower The patient states that when he got up his walker was not near him and he tripped over the furniture falling to the ground He denies any pain, weakness There was no loss of consciousness The patient is not anticoagulated The patient's raises concerns about dehydration because the patient had a G-tube that was removed a few months back Related Data Home Medications ?Medication ?Instructions ?Recorded ?Confirmed furosemide 20 mg tablet 20 mg PO Q48H 03/29/22 09/04/23 pen needle, diabetic 32 gauge x #50 ea 03/29/22 11/08/22 (Pentips) amlodipine 5 mg tablet (Norvasc) 5 mg PO BEDTIME 04/10/23 09/06/23 gabapentin 300 mg capsule 300 mg PO BEDTIME 04/10/23 09/04/23 empagliflozin 25 mg tablet 25 mg PO QAM 04/11/23 09/04/23 (Jardiance) insulin glargine U-300 conc 300 50 unit subcut BEDTIME 06/14/23 09/06/23 unit/mL (1.5 mL) subcutaneous pen (Isidra Valentine U-300 Insulin) insulin lispro 100 unit/mL 10 unit subcut TIDAC 06/14/23 09/06/23 subcutaneous pen mirtazapine 15 mg disintegrating 22.5 mg PO BEDTIME 06/14/23 09/06/23 tablet Previous Rx's ?Medication ?Instructions ?Recorded blood sugar diagnostic (OneTouch #150 ea 04/28/21 Verio test strips) blood-glucose meter (OneTouch #1 ea 04/28/21 Verio Meter) lancets 33 gauge (OneTouch Delica #200 ea 04/28/21 Lancets) carvedilol 6.25 mg tablet (Coreg) 6.25 mg PO BID 90 days #180 tabs 11/08/22 pantoprazole 40 mg tablet,delayed 40 mg PO QAM #90 tabs 02/20/23 release acetaminophen 325 mg tablet 650 mg (2 x 325 mg) PO Q6H PRN 06/18/23 fever of mild pain #1 tab cephalexin 500 mg capsule 500 mg PO Q6H 7 days #28 caps 09/06/23 Allergies Allergy/AdvReac Type Severity Reaction Status Date / Time No Known Allergies Allergy Mild N/A Verified 09/13/23 22:28 Review of Systems 2 Constitutional: Constitutional: Denies body ache(s), Denies chills, Denies fever(s) and Denies headache(s) Eyes: Eyes: Denies blurry vision ENT: Denies vertigo, Denies dizziness and Denies headache(s) Cardiovascular: Cardiovascular: Denies chest pain and Denies dyspnea Respiratory: Respiratory: Denies cough and Denies dyspnea Gastrointestinal: Gastrointestinal: Denies abdominal pain and Denies vomiting Musculoskeletal: Musculoskeletal: Denies back pain Integumentary/Breasts: Skin/Breast: Reports wounds Neurologic: Denies confusion, Denies vertigo, Denies dizziness and Denies headache(s) Psychiatric: Psychiatric: Denies confusion [facility] Past Medical History Medical History NSTEMI (non-ST elevated myocardial infarction) Sepsis Pneumonia Type 2 diabetes mellitus with diabetic polyneuropathy Diverticulosis Erectile dysfunction BPH (benign prostatic hyperplasia) Carpal tunnel syndrome Cataracts, bilateral GERD (gastroesophageal reflux disease) Kidney stones Type 2 diabetes mellitus with chronic kidney disease Chronic kidney disease, stage 3 Type 2 diabetes mellitus with hyperglycemia Essential hypertension Hyperlipidemia LDL goal <70 Surgical History Hx of colonoscopy Hx of lithotripsy Family History Family History Father No problems noted. Mother Diabetes mellitus Brother Diabetes mellitus Sister Diabetes mellitus Social History Social History Household Members: Family Housing: Apartment Do you presently have visiting nurse or other home services: Yes (monthly) Alcohol intake: never Patient Tobacco Use Status: Never used Tobacco Smoked in Last 30 Days: No Use of substances other than those prescribed or required for medical reasons: No Advance Directives: Yes Advance Directives on File: Yes Advance Directives Date on File: 04/11/23 Do you have a plan to hurt others: No Plan service: No Current occupational status: retired Physical Exam ED Vital Signs: Vital Signs - 24 hr 09/13/23 22:16 Temperature 98.9 F Pulse Rate 80 Respiratory Rate 16 Blood Pressure 128/61 Pulse Oximetry 96 Oxygen Delivery Method Room Air BMI result Body Mass Index 25.0 Const General: No confusion Nutritional Appearance: well nourished Orientation/consciousness: No confusion HENMT Other: Patient has a small 1 cm partial-thickness, linear laceration to the posterior scalp. No active bleeding Throat: Yes posterior oropharynx normal Eyes Eyelids: Yes eyelids normal Conjunctivae: conjunctivae normal Sclerae: sclerae normal Corneas: corneas normal Pupils: Equal, round and reactive pupils present EOM: EOMs intact bilaterally Neck Neck: Yes full ROM Resp Effort & Inspection: normal respiratory effort, able to speak in complete sentences and not labored Cardio Rate: regular rate Rhythm: regular rhythm GI Inspection: No distended Palpation (GI): Soft to palpation, not firm, nontender, no guarding and not rigid Back/Spine/Pelvis Cervical Spine: No cervical muscular tenderness, No Cervical spine tenderness and No step off deformity Skin Other: A to the surface of the left hand. No active bleeding General skin exam: elasticity normal Neuro General: No confusion Cranial nerves: Yes CN's II-XII intact bilaterally, Yes Equal, round and reactive pupils present and Yes Bilaterally intact EOM present Cognition (Neuro): normal cognition Extrem Other: Moving all extremities well without any obvious deformities Course Reevaluation(s) Reevaluation #1: Patient's workup largely unremarkable, his superficial wounds were covered with sterile dressing. There was no indication for closure at this time. Imaging was negative for acute traumatic injuries, labs are consistent with baseline. Plan for discharge back home. The patient is ambulatory with a walker Time: 00:28 Medical Decision Making Medical Decision Making MDM Narrative: 77-year-old male presents for evaluation after a fall. He does have a skin tear/laceration to the left hand and a small laceration that is partial- thickness to the posterior scalp. There was no reported loss of consciousness. He has no complaints, is moving all extremities well. I have low suspicion for significant traumatic injury. Plan for labs, EKG, CT scan of the brain and C- spine. Differential Diagnosis Differential Diagnoses: The differential diagnosis associated with the presentation includes Mechanical fall Nonsyncopal fall Intracranial hemorrhage Skin tear [facility] Lab Data MDM Lab Attestation statement: I reviewed the patient's lab results. There is no leukocytosis. The patient has mild normocytic anemia consistent with his baseline. There is no left shift. Patient's electrolytes are significant for glucose of 211 the patient is a known diabetic. His anion gap is 19. Electrolytes are within normal limits, patient's has an elevated BUN and creatinine to 18 and 2.08 respectively. This is also consistent with his known baseline 09/13/23 22:21 09/13/23 22:21 Labs: Lab Results 09/13/23 Range/Units 22:21 WBC 9.4 (4.8-10.8) X10*3/uL RBC 4.49 L (4.60-5.80) X10*6/uL Hgb 11.6 L (14.0-18.0) g/dl Hct 37.1 L (42.0-52.0) % MCV 82.6 (80.0-98.0) fL MCH 25.8 L (27.0-33.0) pg MCHC 31.3 (31.0-36.0) g/dl RDW 17.4 H (11.0-16.0) % Plt Count 317 (160-400) X10*3/uL MPV 9.6 (9.4-12.4) fL Immature Gran % (Auto) 0.3 (0.0-0.4) % Neut % (Auto) 67.7 (45-73) % Lymph % (Auto) 22.6 (20-40) % [place] % (Auto) 6.3 (2-11) % Eos % (Auto) 2.8 (0-4) % Baso % (Auto) 0.3 (0-2) % Lymph # (Auto) 2.1 (1.2-4.9) X10*3/uL [place] # (Auto) 0.6 (0.1-1.2) X10*3/uL Eos # (Auto) 0.3 (0.0-0.4) X10*3/uL Baso # (Auto) 0.0 (0.0-0.2) X10*3/uL Abs Immat Gran (auto) 0.03 (0.00-0.03) X10*3/uL Absolute Neuts (auto) 6.4 (2.0-8.3) x10*3/uL Absolute Nucleated RBC 0.000 (0.0-0.012) X10*3/uL Nucleated RBC % (auto) 0.0 (0.0-0.2) /100WBC PT 11.9 (11.1-13.3) SEC INR 1.0 (0.9-1.1) Sodium 139 (135-145) mmol/L Potassium 3.8 (3.3-5.1) mmol/L Chloride 106 (96-108) mmol/L Carbon Dioxide 18 L (22-29) mmol/L Anion Gap 19 (12-20) BUN 18 H (9-16) mg/dL Creatinine 2.08 H (0.5-1.4) mg/dL Estim Creat Clear Calc 24.3 Estimated GFR 31 Random Glucose 211 H (60-115) mg/dL Calcium 9.4 D (8.4-10.2) mg/dL Total Bilirubin 0.4 (0.0-1.0) mg/dL AST 9 (5-37) U/L ALT < 5 (0-40) U/L Alkaline Phosphatase 85 (39-117) U/L Troponin I High Sens 5.4 (<3.5-35.0) ng/L Total Protein 7.8 (6.5-8.0) g/dL Albumin 3.5 (3.5-5.0) g/dL Independent Interpretation I performed an independent interpretation of an: EKG (Normal sinus rhythm with a rate of 78 beats per minute. No ST segment elevation VT no significant change when compared to July 07, 2023) Discharge Plan Discharge Clinical Impression: Fall Patient Disposition: Home, Self-Care Instructions: Fall Prevention for Older Adults (ED) Additional Instructions: Your workup in the ER was reassuring. Has no significant injuries found on the CT scans. Your blood work was consistent with where it usually is Follow-up with your primary doctor, return for new or worsening symptoms Prescriptions: No Action (DME) blood-glucose meter [OneTouch Verio Meter] Misc See Rx Instructions .ROUTE .MEDSUPPLY Qty: 1 0RF Rx Instructions: As directed 4x/day (DME) OneTouch Verio test strips Strip See Rx Instructions .ROUTE .MEDSUPPLY Qty: 150 11RF Rx Instructions: 4 x/day (DME) lancets [OneTouch Delica Lancets] 33 gauge misc See Rx Instructions .ROUTE .MEDSUPPLY Qty: 200 10RF Rx Instructions: four times a day pantoprazole 40 mg tablet,delayed release (DR/EC) 40 mg PO QAM Qty: 90 1RF insulin lispro 100 unit/mL insulin pen 10 unit subcut TIDAC Rx Instructions: 15 units with breakfast and lunch and 15 units with dinner subcutaneously; mirtazapine 15 mg tablet,disintegrating 22.5 mg PO BEDTIME insulin glargine U-300 conc [Toujeo SoloStar U-300 Insulin] 300 unit/mL (1.5 mL) insulin pen 50 unit subcut BEDTIME acetaminophen 325 mg Tablet 650 mg PO Q6H PRN (Reason: fever of mild pain) Qty: 1 0RF cephalexin 500 mg capsule 500 mg PO Q6H 7 Days Qty: 28 0RF amlodipine [Norvasc] 5 mg tablet 5 mg PO BEDTIME gabapentin 300 mg capsule 300 mg PO BEDTIME Jardiance 25 mg tablet 25 mg PO QAM (DME) pen needle, diabetic [Pentips] 32 gauge x 5/32 needle See Rx Instructions .ROUTE .MEDSUPPLY Qty: 50 Rx Instructions: As directed 4 TIMES A DAY furosemide 20 mg tablet 20 mg PO Q48H carvedilol [Coreg] 6.25 mg tablet 6.25 mg PO BID 90 Days Qty: 180 3RF Rx Instructions: must administer with a meal/food Print Language: Citizen [place]
[2023-09-14 01:33] VITALS: BP 123/64; PULSE 69; RESP 14; TEMP 36.7; O2SAT 96
== END 2023-09-14 01:34 | disposition home or self-care (01) ==
PROVIDERS: Emergency Provider Internal Medicine
DX: S61.412A Laceration without foreign body of left hand, initial encounter (principal); S01.01XA Laceration without foreign body of scalp, initial encounter; W18.09XA Striking against other object with subsequent fall, initial encounter; D50.9 Iron deficiency anemia, unspecified; Y93.9 Activity, unspecified; Y92.032 Bedroom in apartment as the place of occurrence of the external cause; Y99.9 Unspecified external cause status; E11.22 Type 2 diabetes mellitus with diabetic chronic kidney disease; I12.9 Hypertensive chronic kidney disease with stage 1 through stage 4 chronic kidney disease, or unspecified chronic kidney disease; N18.30 Chronic kidney disease, stage 3 unspecified; E78.5 Hyperlipidemia, unspecified; Z79.4 Long term (current) use of insulin; Z79.899 Other long term (current) drug therapy
CPT/HCPCS: 36415; 70450; 72125; 80053; 84484; 85025; 85610; 93005; 99284; 99285

== ENCOUNTER → 2023-09-13 22:17 | Outpatient (BNV) | payer OTHER, SELFPAY | PROVIDERS: Emergency Provider Internal Medicine; Visit Provider Internal Medicine | DX: R94.31 Abnormal electrocardiogram [ECG] [EKG] (principal) | CPT/HCPCS: 93010 ==

== ENCOUNTER 2023-09-21 18:01 | Emergency (ER) | payer OTHER, SELFPAY ==
--- NOTE | ~2023-09-21 | CT_ITS ---
EXAM: CT HEAD WITHOUT CONTRAST CT CERVICAL SPINE INDICATION: Reason for Exam fall, no loc TECHNIQUE: A noncontrast CT scan was performed from the skull base to the vertex. A noncontrast CT scan of the cervical spine was performed from the base of the skull through T1 at 2.5 mm and 0.625 mm collimation. Coronal and sagittal reformats were obtained at the acquisition workstation. This CT examination was performed using dose optimization techniques as appropriate, variously including the following: * Automated exposure control * Adjustment of mA and/or kV according to patient size (this includes techniques or standardized protocols for targeted exams where dose is matched to indication/reason for exam; i.e. extremities or head) * Use of iterative reconstruction technique Dose length product is 974 mGy-cm. COMPARISON: CT head and cervical spine 09/13/2023 FINDINGS: Head: There is no evidence of acute intracranial hemorrhage or edematous territorial infarction. No abnormal mass effect or midline shift is seen. Reed to white matter differentiation is well preserved. No extra-axial fluid collections are identified. Moderate cerebral volume loss. Periventricular and deep white matter hypodensities consistent with chronic microangiopathy. Similar appearance of a chronic right thalamus infarct. No acute calvarial fracture.. Paranasal sinuses and mastoid air cells are well-aerated. Cervical Spine: The atlantooccipital and atlantoaxial articulations remain well aligned. Degenerative changes at the atlantodens articulation. There is anatomic alignment of the vertebral bodies and posterior elements. Vertebral body heights are maintained. No evidence of acute fracture. Multilevel endplate osteophytes. Disc spaces are relatively maintained. Facet degeneration at a few levels. The central bony canal is maintained. No prevertebral soft tissue swelling. No suspicious thyroid findings. No suspicious findings in lung apices. CT/CT cervical spine wo IV con IMPRESSION: 1. No CT evidence of acute intracranial hemorrhage or edematous territorial infarction. 2. No CT evidence of acute cervical spine fracture or malalignment.
[2023-09-21 18:35] VITALS: BP 144/72; PULSE 95; O2SAT 95
--- NOTE | 2023-09-21 18:46 | ED_ITS ---
HPI - Fall General Chief Complaint: Fall Stated Complaint: fall, no bleeding, no LOC, no thinners, headstrike Time Seen by Provider: 09/21/23 18:08 Source: patient and EMS Mode of arrival: EMS Limitations: no limitations History of Present Illness ED Provider: Dr. Maxine Shin HPI Narrative: patient comes to the emergency room complaining of a fall. Patient states that he was at home, he is supposed to use a wheelchair and wait for his family to assist him. Patient states that he needs to go use the restroom, called for his family but they could not hear him. Patient attempted to walk to the bathroom by himself. However, patient fell almost arriving to the bathroom and hit the back of his head. Patient did not lose consciousness. Patient denies any neck pain. Patient states that he feels well, has no headache and no pain anywhere other than a bump in the back of his scalp. Patient denies taking blood thinners. Patient says that his family made him come to the emergency room to get checked out. Related Data Home Medications ?Medication ?Instructions ?Recorded ?Confirmed furosemide 20 mg tablet 20 mg PO Q48H 03/29/22 09/04/23 pen needle, diabetic 32 gauge x #50 ea 03/29/22 11/08/22 (Pentips) amlodipine 5 mg tablet (Norvasc) 5 mg PO BEDTIME 04/10/23 09/06/23 gabapentin 300 mg capsule 300 mg PO BEDTIME 04/10/23 09/04/23 empagliflozin 25 mg tablet 25 mg PO QAM 04/11/23 09/04/23 (Jardiance) insulin glargine U-300 conc 300 50 unit subcut BEDTIME 06/14/23 09/06/23 unit/mL (1.5 mL) subcutaneous pen (Isidra SoloStar U-300 Insulin) insulin lispro 100 unit/mL 10 unit subcut TIDAC 06/14/23 09/06/23 subcutaneous pen mirtazapine 15 mg disintegrating 22.5 mg PO BEDTIME 06/14/23 09/06/23 tablet Previous Rx's ?Medication ?Instructions ?Recorded blood sugar diagnostic (OneTouch #150 ea 04/28/21 Verio test strips) blood-glucose meter (OneTouch #1 ea 04/28/21 Verio Meter) lancets 33 gauge (OneTouch Delica #200 ea 04/28/21 Lancets) carvedilol 6.25 mg tablet (Coreg) 6.25 mg PO BID 90 days #180 tabs 11/08/22 pantoprazole 40 mg tablet,delayed 40 mg PO QAM #90 tabs 02/20/23 release acetaminophen 325 mg tablet 650 mg (2 x 325 mg) PO Q6H PRN 06/18/23 fever of mild pain #1 tab cephalexin 500 mg capsule 500 mg PO Q6H 7 days #28 caps 09/06/23 Allergies Allergy/AdvReac Type Severity Reaction Status Date / Time No Known Allergies Allergy Mild N/A Verified 09/21/23 18:55 Review of Systems Review of Systems: Constitutional : No Weight loss, No Fever, No Chills, No Night Sweats, No Fatigue, No Malaise ENT/Mouth : No Hearing loss, No Ear Pain, No Nasal Congestion, No Sinus Pain, No Hoarseness, No sore throat, No Rhinorrhea, No Swallowing Difficulty Eyes: No Eye Pain, No Swelling, No Redness, No Foreign Body, No Discharge, No Vision Changes Cardiovascular : No Chest Pain, No SOB, No Dyspnea on Exertion, No Orthopnea, No Edema, No Palpitations Respiratory : No Cough, No Sputum, No Wheezing, No Smoke Exposure, No Dyspnea Gastrointestinal : No Nausea, No Vomiting, No Diarrhea, No Constipation, No abdominal Pain, No Hematochezia, No Melena Genitourinary : no irregular bleeding, No Dysuria, No Urinary Frequency, No Hematuria, No Urinary Incontinence, No Urgency, No Flank Pain, No Urinary Flow Changes, No Hesitancy Musculoskeletal : No joint pain, No Myalgias, No Joint Swelling Skin : Abrasion to the scalp posteriorly Neuro : No Weakness, No Numbness, No Paresthesias, No Loss of Consciousness, No Dizziness, No Headache Psych : No Anxiety/Panic, No Depression, No SI/HI/AH/VH, No Social Issues, Heme/Lymph: No Bruising, No Bleeding,No Lymphadenopathy Endocrine : No Polyuria, No Polydipsia, No Temperature Intolerance PMFSH Past Medical History Medical History NSTEMI (non-ST elevated myocardial infarction) Sepsis Pneumonia Type 2 diabetes mellitus with diabetic polyneuropathy Diverticulosis Erectile dysfunction BPH (benign prostatic hyperplasia) Carpal tunnel syndrome Cataracts, bilateral GERD (gastroesophageal reflux disease) Kidney stones Type 2 diabetes mellitus with chronic kidney disease Chronic kidney disease, stage 3 Type 2 diabetes mellitus with hyperglycemia Essential hypertension Hyperlipidemia LDL goal <70 Surgical History Hx of colonoscopy Hx of lithotripsy Family History Family History Father No problems noted. Mother Diabetes mellitus Brother Diabetes mellitus Sister Diabetes mellitus Social History Social History Household Members: Family Housing: Apartment Do you presently have visiting nurse or other home services: Yes (monthly) Alcohol intake: never Patient Tobacco Use Status: Never used Tobacco Advance Directives: Yes Advance Directives on File: Yes Advance Directives Date on File: 04/11/23 service: No Current occupational status: retired Physical Exam Vital Signs: Vital Signs: Last Vital Signs Temp 98.3 F 09/21/23 19:06 Pulse 81 09/21/23 19:06 Resp 16 09/21/23 19:06 BP 131/63 09/21/23 19:06 Pulse Ox 96 09/21/23 19:06 O2 Del Method Room Air 09/21/23 19:06 BMI result Body Mass Index 25.8 Const: Other: Appearance: Alert. Oriented X3. No acute distress. Eyes: Pupils equal, round and reactive to light. ENT: Pharynx normal. Neck: Normal inspection. Neck supple. No lymph nodes noted. No crepitus, no C- spine tenderness, normal flexion and extension CVS: Normal heart rate and rhythm. Pulses normal. Normal S1 and S2 Respiratory: No respiratory distress. Breath sounds normal. No Wheezing. No ra les Abdomen: Soft and nontender. No rigidity. No distention. Skin: Skin warm and dry. Normal skin color. Normal skin turgor. Patient has a small abrasion to the back scalp, stitches not needed Extremities: No lower extremity edema. No Lacerations. No Rash Neuro: Oriented X 3. No motor deficit. No sensory deficit. Moving all extremities. No slurred speech. CN 2 through 12 grossly intact Psych: calm, cooperative, normal affect Medical Decision Making Medical Decision Making [facility] Narrative: my interpretation of CT scan: No intracranial bleed - patient denies any pain in neck or back. - Patient does not walk much, he is supposed to be on wheelchair. However, patient is moving all extremities, denies any pain -Urinalysis looks similar to previous urinalysis, no growth. Differential Diagnosis Differential Diagnoses: The differential diagnosis associated with the presentation includes ( intracranial bleed, cervical injury, contusion, concussion) Admission/Observation Consideration of admission/observation: Escalation of care including admission/observation considered ( given patient's mechanism of injury, observation considered) Lab Data MDM Lab Attestation statement: I reviewed the patient's lab results. Labs: Lab Results 09/21/23 Range/Units 20:34 Urine Color Yellow Urine Appearance Turbid Urine pH 6.0 (5.0-9.0) Ur Specific [place] 1.015 (1.005-1.025) Urine Protein 30 (1+) H (Neg-Trace) mg/dL Urine Glucose (UA) >=1000 H (Negative) mg/dL Urine Ketones Negative (Negative) mg/dL Urine Blood Moderate (2+) H (Negative) Urine Nitrite Negative (Negative) Ur Leukocyte Esterase Large (3+) H (Negative) Urine RBC 11-20 H (0-2) /HPF Urine WBC >50 H (0-5) /HPF Ur Squamous Epith Cells 0-2 (0-2) /HPF Urine Bacteria None Seen (None Seen) Hyaline Casts 0-2 (0-2) /LPF Urine Yeast Present Independent Interpretation I performed an independent interpretation of an: CT Scan Radiology Impression Discussion of test interpretation with radiology: I have reviewed the radiologist's reading. Radiologist Impression: Head: There is no evidence of acute intracranial hemorrhage or edematous territorial infarction. No abnormal mass effect or midline shift is seen. Reed to white matter differentiation is well preserved. No extra-axial fluid collections are identified. Moderate cerebral volume loss. Periventricular and deep white matter hypodensities consistent with chronic microangiopathy. Similar appearance of a chronic right thalamus infarct. No acute calvarial fracture.. Paranasal sinuses and mastoid air cells are well-aerated. Cervical Spine: The atlantooccipital and atlantoaxial articulations remain well aligned. Degenerative changes at the atlantodens articulation. There is anatomic alignment of the vertebral bodies and posterior elements. Vertebral body heights are maintained. No evidence of acute fracture. Multilevel endplate osteophytes. Disc spaces are relatively maintained. Facet degeneration at a few levels. The central bony canal is maintained. No prevertebral soft tissue swelling. No suspicious thyroid findings. No suspicious findings in lung apices. CT/CT head/brain wo IV con IMPRESSION: 1. No CT evidence of acute intracranial hemorrhage or edematous territorial infarction. 2. No CT evidence of acute cervical spine fracture or malalignment. Critical Care Time Critical Care Time Critical Care Time: Yes Total Critical Care Time: 30 Attestation: I have personally provided critical care time. Time includes review of lab data, radiology results, discussion with consultants, and monitoring for potential decompensation. Intervention performed as documented. Discharge Plan Discharge Clinical Impression: Fall, Contusion of head Patient Disposition: Home, Self-Care Additional Instructions: Please follow-up with your primary care physician tomorrow. If you have any worsening or new symptoms, please return to the emergency room or call 911 Prescriptions: No Action (DME) blood-glucose meter [OneTouch Verio Meter] Misc See Rx Instructions .ROUTE .MEDSUPPLY Qty: 1 0RF Rx Instructions: As directed 4x/day (DME) OneTouch Verio test strips Strip See Rx Instructions .ROUTE .MEDSUPPLY Qty: 150 11RF Rx Instructions: 4 x/day (DME) lancets [OneTouch Delica Lancets] 33 gauge misc See Rx Instructions .ROUTE .MEDSUPPLY Qty: 200 10RF Rx Instructions: four times a day pantoprazole 40 mg tablet,delayed release (DR/EC) 40 mg PO QAM Qty: 90 1RF insulin lispro 100 unit/mL insulin pen 10 unit subcut TIDAC Rx Instructions: 15 units with breakfast and lunch and 15 units with dinner subcutaneously; mirtazapine 15 mg tablet,disintegrating 22.5 mg PO BEDTIME insulin glargine U-300 conc [Toujeo SoloStar U-300 Insulin] 300 unit/mL (1.5 mL) insulin pen 50 unit subcut BEDTIME acetaminophen 325 mg Tablet 650 mg PO Q6H PRN (Reason: fever of mild pain) Qty: 1 0RF cephalexin 500 mg capsule 500 mg PO Q6H 7 Days Qty: 28 0RF amlodipine [Norvasc] 5 mg tablet 5 mg PO BEDTIME gabapentin 300 mg capsule 300 mg PO BEDTIME Jardiance 25 mg tablet 25 mg PO QAM (DME) pen needle, diabetic [Pentips] 32 gauge x /32 needle See Rx Instructions .ROUTE .MEDSUPPLY Qty: 50 Rx Instructions: As directed 4 TIMES A DAY furosemide 20 mg tablet 20 mg PO Q48H carvedilol [Coreg] 6.25 mg tablet 6.25 mg PO BID 90 Days Qty: 180 3RF Rx Instructions: must administer with a meal/food Print Language: [place]
[2023-09-21 18:50] VITALS: BP 119/62; PULSE 80; RESP 16; TEMP 36; O2SAT 96; BMI 25.8
[2023-09-21 19:06] VITALS: BP 131/63; PULSE 81; RESP 16; TEMP 36.8; O2SAT 96
[2023-09-21 20:43] LABS: Appearance Urine Turbid; Color Urine Yellow; Glucose Urine UA >=1000 mg/dL (Negative); Leukocyte Esterase Urine Large (3+) (Negative); Nitrite Urine Negative (Negative); Specific Gravity - Urine 1.015 (1.005-1.025); UMIC TRIGGER UACC YES; Urine Blood Moderate (2+) (Negative); Urine Ketones Negative (Negative); Urine Protein 30 (1+) mg/dL (Neg-Trace)
[2023-09-21 20:51] LABS: Bacteria Urine None Seen (None Seen); Hyaline Casts Urine 0-2 /LPF (0-2); Squamous Epithelial Cell Urine 0-2 /HPF (0-2); UACC Culture Trigger YES; WBC Urine >50 /HPF (0-5)
[2023-09-21 22:14] VITALS: BP 112/59; PULSE 69; RESP 18; TEMP 36.6; O2SAT 95
[2023-09-21 22:22] VITALS: BP 112/59; PULSE 69; RESP 18; TEMP 36.6; O2SAT 95
== END 2023-09-21 22:23 | disposition home or self-care (01) ==
PROVIDERS: Emergency Provider Emergency Medicine; PCP Family Medicine
DX: S00.03XA Contusion of scalp, initial encounter (principal); W18.39XA Other fall on same level, initial encounter; R53.1 Weakness; E11.22 Type 2 diabetes mellitus with diabetic chronic kidney disease; I12.9 Hypertensive chronic kidney disease with stage 1 through stage 4 chronic kidney disease, or unspecified chronic kidney disease; N18.30 Chronic kidney disease, stage 3 unspecified; N17.9 Acute kidney failure, unspecified; E78.5 Hyperlipidemia, unspecified; Y93.89 Activity, other specified; Y92.019 Unspecified place in single-family (private) house as the place of occurrence of the external cause; Y99.9 Unspecified external cause status
CPT/HCPCS: 70450; 72125; 81001; 87086; 87088; 99283; 99284

== ENCOUNTER 2023-10-02 11:38 | Emergency (ER) | payer OTHER, SELFPAY ==
[2023-10-02] VITALS (7 sets, daily range): BP systolic 100–138; BP diastolic 58–80; PULSE 71–78; RESP 16–18; TEMP 36.2–36.9; O2SAT 96–98; BMI 21.5
--- NOTE | 2023-10-02 | ECG_ITS ---
Test Reason : FALL Blood Pressure : / mmHG Vent. Rate : 073 BPM Atrial Rate : 000 BPM P-R Int : 000 ms QRS Dur : 074 ms QT Int : 394 ms P-R-T Axes : 000 148 149 degrees QTc Int : 434 ms Artifact in tracing Probably sinus rhythm Left posterior fascicular block Cannot rule out Anterior infarct , age undetermined Abnormal ECG When compared with ECG of 13-SEP-2023 22:18, T wave inversion now evident in Lateral leads Referred By: Generic ED Physician Electronically Signed By:MARISOL MONTILLA
--- NOTE | ~2023-10-02 | CT_ITS ---
EXAMINATION: CT CHEST WITHOUT CONTRAST CLINICAL INFORMATION: Fall with left-sided chest pain COMPARISON: None available. TECHNIQUE: Multidetector volumetric CT imaging of the chest was done. Axial MIP volume rendering provided. Sagittal and coronal reformatted images were obtained. This CT examination was performed using dose optimization techniques as appropriate, variously including the following: *Automated exposure control *Adjustment of mA and/or kV according to patient size (this includes techniques or standardized protocols for targeted exams where dose is matched to indication/reason for exam; i.e. extremities or head) *Use of iterative reconstruction technique DLP: 321 mGy-cm FINDINGS: HANDS ASSEMBLER: Limited. LUNGS: Trachea and bronchi are patent. Study limited by respiratory motion. Lingular and scattered atelectasis. MEDIASTINUM: Unremarkable thyroid. No pathologic lymphadenopathy. Mildly thickened esophagus. Nonenlarged heart. No pericardial effusion. Atherosclerotic calcifications nonaneurysmal aorta. Nonenlarged pulmonary arteries. CORONARY ARTERY CALCIFICATION: Mild. PLEURA: There is no pleural effusion. No pleural mass or thickening. AXILLA: No lymphadenopathy. UPPER ABDOMEN: Innumerable small layering gallstones in distended gallbladder. Gallstones extend to the neck. No gallbladder wall thickening or stranding or fluid. 6.3 cm left upper pole renal cysts. Other too small to characterize probable renal cyst. Nonspecific perinephric stranding. OSSEOUS STRUCTURES: No acute bony pathology. CT/CT chest wo IV con IMPRESSION: Atelectasis. No acute osseous pathology. Cholelithiasis with with stones in the neck. No other CT findings to suggest acute cholecystitis. Fleischner guidelines were followed.
--- NOTE | 2023-10-02 12:16 | PC.NURSE ---
a&ox4. vss and up to date. pt biba from home d/t unwitnessed fall while in bathroom last night while attempting to get out of unlocked wheelchair - mechanical fall onto left side - helped pt back to bed but pt presents today d/t increase in left sided rib pain. -headstrike, -loc, -thinners. no difficulty breathing reported. labs obtained/sent to lab. urine also obtained/sent to lab. ekg performed by tech. no sob/wob noted. respirations even/unlabored. plan of care ongoing. call blum placed within reach.
[2023-10-02 12:30] LABS: Appearance Urine Turbid; Color Urine Yellow; Glucose Urine UA >=1000 mg/dL (Negative); Leukocyte Esterase Urine Large (3+) (Negative); Nitrite Urine Negative (Negative); Specific Gravity - Urine 1.015 (1.005-1.025); UMIC TRIGGER UACC YES; Urine Blood Moderate (2+) (Negative); Urine Ketones Negative (Negative); Urine Protein 100 (2+) mg/dL (Neg-Trace)
[2023-10-02 12:34] LABS: MANUAL DIFF FLAG NO
[2023-10-02 12:39] LABS: Basophils Percent Auto 0.3 % (0-2); Eosinophils Absolute Auto 0.2 X10*3/uL (0.0-0.4); Eosinophils Percent Auto 2.8 % (0-4); Hematocrit 37.6 % (42.0-52.0); Hemoglobin 11.8 g/dl (14.0-18.0); Imm Gran Abs Auto 0.01 X10*3/uL (0.00-0.03); Imm Gran Pct Auto 0.1 % (0.0-0.4); Lymphocytes Absolute Auto 1.3 X10*3/uL (1.2-4.9); Mean Corpuscular HGB Conc 31.4 g/dl (31.0-36.0); Mean Corpuscular Hemoglobin 26.1 pg (27.0-33.0); Mean Corpuscular Volume 83.2 fL (80.0-98.0); Mean Platelet Volume 9.4 fL (9.4-12.4); Monocytes Absolute Auto 0.6 X10*3/uL (0.1-1.2); Monocytes Percent Auto 9.4 % (2-11); Neutrophils Absolute Auto 4.5 x10*3/uL (2.0-8.3); Neutrophils Percent Auto 67.4 % (45-73); Platelet Count 306 X10*3/uL (160-400); Red Blood Count 4.52 X10*6/uL (4.60-5.80); Red Cell Distribution Width 16.4 % (11.0-16.0); White Blood Count 6.7 X10*3/uL (4.8-10.8)
[2023-10-02 12:46] LABS: Bacteria Urine 1+ (None Seen); Hyaline Casts Urine 0-2 /LPF (0-2); UACC Culture Trigger YES; WBC Urine >50 /HPF (0-5)
[2023-10-02 12:57] LABS: Alanine Aminotransferase 5 U/L (0-40); Albumin Level 3.4 g/dL (3.5-5.0); Alkaline Phosphatase 94 U/L (39-117); Anion Gap 13 (12-20); Aspartate Amino Transferase 9 U/L (5-37); Bilirubin Total 0.4 mg/dL (0.0-1.0); Blood Urea Nitrogen 23 mg/dL (9-16); Calcium 9.3 mg/dL (8.4-10.2); Carbon Dioxide 26 mmol/L (22-29); Chloride 106 mmol/L (96-108); Creatinine Clr Calc Pharmacy 34.1; Estimated Glomerular Filt Rate 36; Glucose Random 136 mg/dL (60-115); Potassium 3.9 mmol/L (3.3-5.1); Sodium 141 mmol/L (135-145); Total Protein 7.8 g/dL (6.5-8.0)
--- NOTE | 2023-10-02 13:39 | ED_ITS ---
HPI - Fall General Chief Complaint: Fall Stated Complaint: L SIDE PAIN S/P FALL T-1 PER EMS Time Seen by Provider: 10/02/23 13:00 Source: patient, EMS, old records reviewed and lead scientist Mode of arrival: EMS Limitations: no limitations History of Present Illness ED Provider: DR. Rios HPI Narrative: 77-year-old male history of HTN, HLD, CKD 3, DM 2, nephrolithiasis, CVA with left hemiparesis, G-tube feeds came in by ambulance for evaluation after a mechanical fall yesterday, patient was sitting on the toilet last night when he got up lost balance and fell patient declined LOC, no head injury, not on AC, patient landed on his left side of the chest initially did not have pain but this morning started to complain of left-sided chest wall pain. Related Data Home Medications ?Medication ?Instructions ?Recorded ?Confirmed furosemide 20 mg tablet 20 mg PO Q48H 03/29/22 09/04/23 pen needle, diabetic 32 gauge x #50 ea 03/29/22 11/08/22 (Pentips) amlodipine 5 mg tablet (Norvasc) 5 mg PO BEDTIME 04/10/23 09/06/23 gabapentin 300 mg capsule 300 mg PO BEDTIME 04/10/23 09/04/23 empagliflozin 25 mg tablet 25 mg PO QAM 04/11/23 09/04/23 (Jardiance) insulin glargine U-300 conc 300 50 unit subcut BEDTIME 06/14/23 09/06/23 unit/mL (1.5 mL) subcutaneous pen (Isidra Valentine U-300 Insulin) insulin lispro 100 unit/mL 10 unit subcut TIDAC 06/14/23 09/06/23 subcutaneous pen mirtazapine 15 mg disintegrating 22.5 mg PO BEDTIME 06/14/23 09/06/23 tablet Previous Rx's ?Medication ?Instructions ?Recorded blood sugar diagnostic (OneTouch #150 ea 04/28/21 Verio test strips) blood-glucose meter (OneTouch #1 ea 04/28/21 Verio Meter) lancets 33 gauge (OneTouch Delica #200 ea 04/28/21 Lancets) carvedilol 6.25 mg tablet (Coreg) 6.25 mg PO BID 90 days #180 tabs 11/08/22 pantoprazole 40 mg tablet,delayed 40 mg PO QAM #90 tabs 02/20/23 release acetaminophen 325 mg tablet 650 mg (2 x 325 mg) PO Q6H PRN 06/18/23 fever of mild pain #1 tab cephalexin 500 mg capsule 500 mg PO Q6H 7 days #28 caps 09/06/23 cefuroxime axetil 500 mg tablet 500 mg PO BID #20 tabs 10/02/23 oxycodone 5 mg tablet 5 mg PO BID PRN pain #10 tabs 10/02/23 Allergies Allergy/AdvReac Type Severity Reaction Status Date / Time No Known Allergies Allergy Mild N/A Verified 10/02/23 11:53 Review of Systems 2 Review of Systems: All other systems are reviewed and are negative Constitutional: Reports as per HPI and Reports no additional constitutional complaints Eyes: Reports as per HPI and Reports no additional eye complaints Reports system reviewed and no additional complaints, except as documented Cardiovascular: Reports as per HPI and Reports no additional cardiovascular complaints Respiratory: Reports as per HPI and Reports no additional respiratory complaints Gastrointestinal: Reports as per HPI and Reports no additional gastrointestinal complaints Genitourinary: Reports no additional female genitourinary complaints Musculoskeletal: Reports no additional musculoskeletal complaints Skin/Breast: Reports system reviewed and no additional complaints, except as docu Psychiatric: Reports no additional psychiatric complaints Endocrine: Reports no additional endocrine complaints Hematologic/Lymphatic: Reports no additional hematologic/lymphatic complaints Allergic/Immunologic: Reports no additional allergic/immunologic complaints Reports system reviewed and no additional complaints, except as documented and Reports Abnormal speech present [facility] Past Medical History Medical History NSTEMI (non-ST elevated myocardial infarction) Sepsis Pneumonia Type 2 diabetes mellitus with diabetic polyneuropathy Diverticulosis Erectile dysfunction BPH (benign prostatic hyperplasia) Carpal tunnel syndrome Cataracts, bilateral GERD (gastroesophageal reflux disease) Kidney stones Type 2 diabetes mellitus with chronic kidney disease Chronic kidney disease, stage 3 Type 2 diabetes mellitus with hyperglycemia Essential hypertension Hyperlipidemia LDL goal <70 Surgical History Hx of colonoscopy Hx of lithotripsy Family History Family History Father No problems noted. Mother Diabetes mellitus Brother Diabetes mellitus Sister Diabetes mellitus Social History Social History Household Members: Family Housing: Apartment Do you presently have visiting nurse or other home services: Yes (monthly) Alcohol intake: never Patient Tobacco Use Status: Never used Tobacco Smoked in Last 30 Days: No Use of substances other than those prescribed or required for medical reasons: No Advance Directives: Yes Advance Directives on File: Yes Advance Directives Date on File: 04/11/23 Do you have a plan to hurt others: No Plan service: No Current occupational status: retired Physical Exam 2 Vital Signs: Vital Signs: Last Vital Signs Temp 98.5 F 10/02/23 14:46 Pulse 71 10/02/23 14:46 Resp 17 10/02/23 14:46 BP 124/63 10/02/23 14:46 Pulse Ox 97 10/02/23 14:46 O2 Del Method Room Air 10/02/23 14:46 BMI result Body Mass Index 21.5 Vital signs have been reviewed and appear to be correct. Blood pressure elevated. Heart rate normal. Respiratory rate normal. Temperature normal. Oxygen saturation normal. Appearance: Alert. Oriented X3. No acute distress. Head: Normal external exam. Normocephalic. Atraumatic. No Pierce signs noted. No raccoon eyes noted Eyes: PERRLA. EOMI. Conjunctiva and sclera normal. Eyelids normal. ENT: TM's Normal. Pharynx normal. Uvula midline. Moist mucous membranes. No trismus noted. No drooling noted. No muffled voice noted. Neck: Normal inspection. Neck supple. FROM. No adenopathy. Thyroid Normal. No meningeal signs. No neck mass noted. CVS: Normal heart rate and rhythm. Heart sound normal. No murmurs noted. Pulses normal throughout. Respiratory: No respiratory distress. Painless inspiration. Breath sounds normal. No wheezes/rales/rhonchi noted. Chest nontender. No accessory muscle usage noted or decreased air movement noted. Abdomen: Soft and nontender. Bowel sounds normal in all 4 quadrants. No distention noted. No organomegaly noted. No visible injury noted. Back: No CVA tenderness. Full range of motion noted. Skin: Skin warm and dry. Normal skin color. Normal skin turgor. No rashes/lesions/lacerations noted. Extremities: No lower extremity edema. Extremities exhibit normal range of motion. Extremities nontender. Neuro: Oriented X 3. Cranial nerve exam: II-XII are grossly intact Pre-existing left hemiparesis secondary to old stroke. Course Reevaluation(s) Reevaluation #1: 1. Mechanical fall last night complaining of left-sided chest pain, CT chest pending for rule out lung contusion versus rib fracture signed out to Dr. Shin. 2. Simple UTI, no SIRS, no flank pain will start in cefuroxime for 1 week Time: 15:45 Medications Administered Discontinued Medications Generic Name Dose Route Start Last Admin Trade Name Freq PRN Reason Stop Dose Admin Sodium Chloride 1,000 mls @ 999 mls/hr 10/02/23 13:19 10/02/23 14:38 Ns IV 10/02/23 14:19 999 mls/hr .Q1H1M ONE Administration Ceftriaxone Sodium 1 gm/ 50 mls @ 100 mls/hr 10/02/23 13:20 10/02/23 15:13 Sodium Chloride IV 10/02/23 13:49 Infused ONCE ONE Infusion Medical Decision Making Differential Diagnosis Differential Diagnoses: The differential diagnosis associated with the presentation includes (Rib fracture, chest wall contusion, lung contusion, pneumonia, pneumothorax, UTI) Admission/Observation Consideration of admission/observation: Escalation of care including admission/observation considered Lab Data MDM Lab Attestation statement: I reviewed the patient's lab results. 10/02/23 12:01 10/02/23 12:01 Labs: Lab Results 10/02/23 10/02/23 10/02/23 Range/Units 12:01 12:16 14:16 WBC 6.7 (4.8-10.8) X10*3/uL RBC 4.52 L (4.60-5.80) X10*6/uL Hgb 11.8 L (14.0-18.0) g/dl Hct 37.6 L (42.0-52.0) % MCV 83.2 (80.0-98.0) fL MCH 26.1 L (27.0-33.0) pg MCHC 31.4 (31.0-36.0) g/dl RDW 16.4 H (11.0-16.0) % Plt Count 306 (160-400) X10*3/uL MPV 9.4 (9.4-12.4) fL Immature Gran % (Auto) 0.1 (0.0-0.4) % Neut % (Auto) 67.4 (45-73) % Lymph % (Auto) 20.0 (20-40) % [place] % (Auto) 9.4 (2-11) % Eos % (Auto) 2.8 (0-4) % Baso % (Auto) 0.3 (0-2) % Lymph # (Auto) 1.3 (1.2-4.9) X10*3/uL [place] # (Auto) 0.6 (0.1-1.2) X10*3/uL Eos # (Auto) 0.2 (0.0-0.4) X10*3/uL Baso # (Auto) 0.0 (0.0-0.2) X10*3/uL Abs Immat Gran (auto) 0.01 (0.00-0.03) X10*3/uL Absolute Neuts (auto) 4.5 (2.0-8.3) x10*3/uL Absolute Nucleated RBC 0.000 (0.0-0.012) X10*3/uL Nucleated RBC % (auto) 0.0 (0.0-0.2) /100WBC Sodium 141 (135-145) mmol/L Potassium 3.9 (3.3-5.1) mmol/L Chloride 106 (96-108) mmol/L Carbon Dioxide 26 (22-29) mmol/L Anion Gap 13 (12-20) BUN 23 H (9-16) mg/dL Creatinine 1.82 H (0.5-1.4) mg/dL Estim Creat Clear Calc 34.1 Estimated GFR 36 Random Glucose 136 H (60-115) mg/dL Lactic Acid 1.9 (0.5-2.0) mmol/L Calcium 9.3 (8.4-10.2) mg/dL Total Bilirubin 0.4 (0.0-1.0) mg/dL AST 9 (5-37) U/L ALT 5 (0-40) U/L Alkaline Phosphatase 94 (39-117) U/L Total Creatine Kinase 16 L (38-174) U/L Total Protein 7.8 (6.5-8.0) g/dL Albumin 3.4 L (3.5-5.0) g/dL Urine Color Yellow Urine Appearance Turbid Urine pH 6.0 (5.0-9.0) Ur Specific [place] 1.015 (1.005-1.025) Urine Protein 100 (2+) H (Neg-Trace) mg/dL Urine Glucose (UA) >=1000 H (Negative) mg/dL Urine Ketones Negative (Negative) mg/dL Urine Blood Moderate (2+) H (Negative) Urine Nitrite Negative (Negative) Ur Leukocyte Esterase Large (3+) H (Negative) Urine RBC 11-20 H (0-2) /HPF Urine WBC >50 H (0-5) /HPF Ur Squamous Epith Cells 11-20 (0-2) /HPF Urine Bacteria 1+ (None Seen) Hyaline Casts 0-2 (0-2) /LPF Urine Yeast Present Discharge Plan Discharge Clinical Impression: Chest wall contusion, Bacterial UTI Patient Disposition: Home, Self-Care Instructions: Urinary Tract Infection in Men (DC), Contusion in Adults (ED) Prescriptions: New cefuroxime axetil 500 mg tablet 500 mg PO BID Qty: 20 0RF oxycodone 5 mg tablet 5 mg PO BID PRN (Reason: pain) Qty: 10 0RF Rx Instructions: Partial Fill upon patient request. No Action (DME) blood-glucose meter [OneTouch Verio Meter] Misc See Rx Instructions .ROUTE .MEDSUPPLY Qty: 1 0RF Rx Instructions: As directed 4x/day (DME) OneTouch Verio test strips Strip See Rx Instructions .ROUTE .MEDSUPPLY Qty: 150 11RF Rx Instructions: 4 x/day (DME) lancets [OneTouch Delica Lancets] 33 gauge misc See Rx Instructions .ROUTE .MEDSUPPLY Qty: 200 10RF Rx Instructions: four times a day pantoprazole 40 mg tablet,delayed release (DR/EC) 40 mg PO QAM Qty: 90 1RF insulin lispro 100 unit/mL insulin pen 10 unit subcut TIDAC Rx Instructions: 15 units with breakfast and lunch and 15 units with dinner subcutaneously; mirtazapine 15 mg tablet,disintegrating 22.5 mg PO BEDTIME insulin glargine U-300 conc [Toujeo SoloStar U-300 Insulin] 300 unit/mL (1.5 mL) insulin pen 50 unit subcut BEDTIME acetaminophen 325 mg Tablet 650 mg PO Q6H PRN (Reason: fever of mild pain) Qty: 1 0RF cephalexin 500 mg capsule 500 mg PO Q6H 7 Days Qty: 28 0RF amlodipine [Norvasc] 5 mg tablet 5 mg PO BEDTIME gabapentin 300 mg capsule 300 mg PO BEDTIME Jardiance 25 mg tablet 25 mg PO QAM (DME) pen needle, diabetic [Pentips] 32 gauge x 5/32 needle See Rx Instructions .ROUTE .MEDSUPPLY Qty: 50 Rx Instructions: As directed 4 TIMES A DAY furosemide 20 mg tablet 20 mg PO Q48H carvedilol [Coreg] 6.25 mg tablet 6.25 mg PO BID 90 Days Qty: 180 3RF Rx Instructions: must administer with a meal/food Referrals: Natacha Olivas MD [Primary Care Provider] - Print Language: Japanese
--- NOTE | 2023-10-02 13:41 | PC.NURSE ---
pt to CT at this time.
[2023-10-02 14:33] LABS: Lactic Acid 1.9 mmol/L (0.5-2.0)
[2023-10-02] MEDS: cefTRIAXone sodium 1 GM in 0.9 % Sodium Chloride 50 ML IV (14:38)
[2023-10-02] MEDS: 0.9 % Sodium Chloride 1,000 ML 999 ML IV (14:38)
--- NOTE | 2023-10-02 14:49 | PC.NURSE ---
delay in medication administration d/t pt being difficult stick. cultures obtained/sent to lab. 20gIV placed in the right forearm - IVF/abx administered per provider order. plan of care ongoing.
== END 2023-10-02 19:31 | disposition home or self-care (01) ==
PROVIDERS: Emergency Provider Emergency Medicine; PCP Family Medicine
DX: S20.212A Contusion of left front wall of thorax, initial encounter (principal); W18.11XA Fall from or off toilet without subsequent striking against object, initial encounter; N39.0 Urinary tract infection, site not specified; Y93.89 Activity, other specified; Y92.012 Bathroom of single-family (private) house as the place of occurrence of the external cause; Y99.9 Unspecified external cause status
CPT/HCPCS: 36415; 71250; 80053; 81001; 82550; 83605; 85025; 87040; 87086; 93005; 96361; 96374; 99285; J0696

== ENCOUNTER → 2023-10-02 12:14 | Outpatient (BNV) | payer OTHER, SELFPAY | PROVIDERS: Emergency Provider Emergency Medicine; PCP Family Medicine; Visit Provider Internal Medicine | DX: I44.5 Left posterior fascicular block (principal); R94.31 Abnormal electrocardiogram [ECG] [EKG] | CPT/HCPCS: 93010 ==

== ENCOUNTER 2023-11-08 05:25 | Emergency (ER) | payer OTHER, SELFPAY ==
--- NOTE | ~2023-11-08 | XR_ITS ---
EXAMINATION: XR HUMERUS, RIGHT CLINICAL INFORMATION: Pain COMPARISON: None available. TECHNIQUE: AP and lateral views of the right humerus. FINDINGS: The bones and soft tissues are normal. No fracture. Imaged portions of the shoulder and elbow are unremarkable. XR/XR humerus RT IMPRESSION: Normal right humerus. Electronically signed by: Hunter Rojas MD 11/08/2023 09:56 AM EDT
--- NOTE | ~2023-11-08 | CT_ITS ---
EXAMINATION: CT CERVICAL SPINE WITHOUT CONTRAST CLINICAL INFORMATION: Fall. COMPARISON: September 21, 2023. TECHNIQUE: CT of the head and cervical spine were performed without intravenous contrast. Multiplanar reformats were rendered and reviewed. This CT examination was performed using dose optimization techniques as appropriate, variously including the following: *Automated exposure control *Adjustment of mA and/or kV according to patient size (this includes techniques or standardized protocols for targeted exams where dose is matched to indication/reason for exam; i.e. extremities or head) *Use of iterative reconstruction technique DLP: 264 mGy-cm FINDINGS: The vertebral body heights appear maintained. No cervical spine fracture is seen. The cervical alignment appears normal. Mild disc degenerative change most notable at C3-C5. Mild neuroforaminal narrowing at these levels on the left. Mild bilateral neuroforaminal narrowing at C5-C6, right more than left The paraspinal soft tissues appear within normal limits. The partially imaged lung apices appear clear. Suspect surgical clip in the soft tissues just anterior to the thyroid cartilage (image 53, series 13). CT/CT cervical spine wo IV con IMPRESSION: No cervical spine fracture or traumatic malalignment identified. Electronically signed by: Mike Gupta MD 11/08/2023 10:21 AM EDT
--- NOTE | ~2023-11-08 | CT_ITS ---
EXAMINATION: CT HEAD WITHOUT CONTRAST CLINICAL INFORMATION: fall head injury on ac, lac on forehead COMPARISON: CT head 09/21/2023 TECHNIQUE: Contiguous axial imaging was performed from the skull base to vertex without intravenous administration of contrast. This CT examination was performed using dose optimization techniques as appropriate, variously including the following: *Automated exposure control *Adjustment of mA and/or kV according to patient size (this includes techniques or standardized protocols for targeted exams where dose is matched to indication/reason for exam; i.e. extremities or head) *Use of iterative reconstruction technique DLP: 720 mGy-cm FINDINGS: There is an acute subdural hematoma along the right cerebral convexity measuring up to 0.5 cm in maximum thickness, 9:94. Minimal mass effect on the underlying brain parenchyma. No significant midline shift. No hydrocephalus. There is no evidence of acute intraparenchymal hemorrhage. There is proportional prominence of the ventricles and cortical sulci with mild volume loss. Few scattered hypodensities in the right ventricle and the white matter likely representing mild chronic microangiopathy. Again noted remote infarct within the right thalamus. Small soft tissue defect along the left frontal scalp likely correlating to known laceration. Small left frontal scalp soft tissue hematoma and scattered foci of gas. Mild right inferior frontal scalp soft tissue swelling. No acute osseous abnormality. The included paranasal sinuses and mastoids are well-aerated. CT/CT head/brain wo IV con IMPRESSION: Small acute subdural hematoma along the right cerebral convexity measuring up to 0.5 cm in maximum thickness.Minimal mass effect on the underlying brain parenchyma. No significant midline shift. Small soft tissue defect along the left frontal scalp likely correlating to known laceration. Small left frontal scalp soft tissue hematoma and scattered foci of gas. Mild right inferior frontal scalp soft tissue swelling. Mild volume loss with underlying chronic microangiopathy and remote infarct in the right thalamus. This critical result was discussed with Sangeetha Holman MD at 9:41 AM on 11/08/2023 and it was ascertained that the content and urgency of the report was understood at the time of direct communication Electronically signed by: Alen Brandt MD 11/08/2023 09:45 AM EDT
--- NOTE | ~2023-11-08 | XR_ITS ---
EXAMINATION: XR HUMERUS, LEFT CLINICAL INFORMATION: Pain COMPARISON: None available. TECHNIQUE: AP and lateral views of the left humerus. FINDINGS: The bones and soft tissues are normal. No fracture. Imaged portions of the shoulder and elbow are unremarkable. XR/XR humerus LT IMPRESSION: Normal left humerus. Electronically signed by: Hunter Rojas MD 11/08/2023 09:55 AM EDT
[2023-11-08 05:32] VITALS: BP 126/63; PULSE 72; RESP 20; TEMP 36.5; O2SAT 96; BMI 21.1
[2023-11-08 05:48] LABS: Basophils Percent Auto 0.3 % (0-2); Eosinophils Absolute Auto 0.3 X10*3/uL (0.0-0.4); Eosinophils Percent Auto 4.1 % (0-4); Hematocrit 38.7 % (42.0-52.0); Hemoglobin 12.5 g/dl (14.0-18.0); Imm Gran Abs Auto 0.02 X10*3/uL (0.00-0.03); Imm Gran Pct Auto 0.3 % (0.0-0.4); MANUAL DIFF FLAG NO; Mean Corpuscular HGB Conc 32.3 g/dl (31.0-36.0); Mean Corpuscular Hemoglobin 26.9 pg (27.0-33.0); Mean Corpuscular Volume 83.2 fL (80.0-98.0); Mean Platelet Volume 9.3 fL (9.4-12.4); Monocytes Absolute Auto 0.5 X10*3/uL (0.1-1.2); Monocytes Percent Auto 7.1 % (2-11); Neutrophils Absolute Auto 4.2 x10*3/uL (2.0-8.3); Neutrophils Percent Auto 60.2 % (45-73); Platelet Count 325 X10*3/uL (160-400); Red Blood Count 4.65 X10*6/uL (4.60-5.80); Red Cell Distribution Width 15.1 % (11.0-16.0)
--- NOTE | 2023-11-08 06:02 | PC.NURSE ---
BIBA from home, aox4, respirations even and unlabored, vss. Knitting Demonstrator at bedside. Pt reports 10/10 pain after fall from standing, denies dizziness/sob/chest pain. Pt reports left sided deficits from previous stroke and history of falls, last fall around 2 months ago per pt. Denies n/v/d. Patient has small laceration wrapped by ems prior to arrival, bleeding controlled. 20g placed in R wrist, labs obtained and sent.
[2023-11-08 06:04] LABS: Alanine Aminotransferase 6 U/L (0-40); Albumin Level 3.4 g/dL (3.5-5.0); Alkaline Phosphatase 74 U/L (39-117); Anion Gap 15 (12-20); Aspartate Amino Transferase 11 U/L (5-37); Bilirubin Total 0.4 mg/dL (0.0-1.0); Blood Urea Nitrogen 20 mg/dL (9-16); Calcium 9.5 mg/dL (8.4-10.2); Carbon Dioxide 23 mmol/L (22-29); Chloride 107 mmol/L (96-108); Creatinine Clr Calc Pharmacy 26.9; Estimated Glomerular Filt Rate 35; Glucose Random 218 mg/dL (60-115); Potassium 4.5 mmol/L (3.3-5.1); Sodium 140 mmol/L (135-145); Total Protein 7.9 g/dL (6.5-8.0)
[2023-11-08 06:10] LABS: Troponin-I High Sensitivity < 2.7 ng/L (<3.5-35.0)
[2023-11-08 07:35] VITALS: BP 126/59; PULSE 70; RESP 16; TEMP 36.6; O2SAT 95
--- NOTE | 2023-11-08 07:36 | PC.NURSE ---
Care of Pt assumed at change of shift. VSS, afebrile, and Pt report 10/10 bilat upper extremities. C-collar in place. Large laceration noted to Pts forehead. Dried blood noted, no active bleeding at this time. Awaiting imaging at this time.
--- NOTE | 2023-11-08 08:33 | ED_ITS ---
HPI - Fall General Chief Complaint: Fall Stated Complaint: fall Time Seen by Provider: 11/08/23 06:56 Source: patient, EMS, RN notes reviewed and old records reviewed Mode of arrival: EMS History of Present Illness ED Provider: Keesha Bucio PA-C HPI Narrative: 78-year-old male with a past medical history of NSTEMI, diabetes, CKD, BPH, GERD, renal stones, HTN, HLD, CVA with left-sided hemiparesis, not on anticoagulation, presenting to the ED complaining of bilateral upper arm pain, and head injury s/p mechanical fall 3 hours [employer] when getting up to use the bathroom. States he lost his balance, chronically has poor balance due to prior CVA and fell into bureau. Denies symptoms prior to fall, LOC or anticoagulation use. Denies neck/back pain, CP/SOB, abdominal pain, LE pain. Tetanus up-to-date Related Data Home Medications ?Medication ?Instructions ?Recorded ?Confirmed furosemide 20 mg tablet 20 mg PO Q48H 03/29/22 09/04/23 pen needle, diabetic 32 gauge x #50 ea 03/29/22 11/08/22 (Pentips) amlodipine 5 mg tablet (Norvasc) 5 mg PO BEDTIME 04/10/23 09/06/23 gabapentin 300 mg capsule 300 mg PO BEDTIME 04/10/23 09/04/23 empagliflozin 25 mg tablet 25 mg PO QAM 04/11/23 09/04/23 (Jardiance) insulin glargine U-300 conc 300 50 unit subcut BEDTIME 06/14/23 09/06/23 unit/mL (1.5 mL) subcutaneous pen (Stepanujeromy SoloStar U-300 Insulin) insulin lispro 100 unit/mL 10 unit subcut TIDAC 06/14/23 09/06/23 subcutaneous pen mirtazapine 15 mg disintegrating 22.5 mg PO BEDTIME 06/14/23 09/06/23 tablet Previous Rx's ?Medication ?Instructions ?Recorded blood sugar diagnostic (OneTouch #150 ea 04/28/21 Verio test strips) blood-glucose meter (OneTouch #1 ea 04/28/21 Verio Meter) lancets 33 gauge (OneTouch Delica #200 ea 04/28/21 Lancets) carvedilol 6.25 mg tablet (Coreg) 6.25 mg PO BID 90 days #180 tabs 11/08/22 pantoprazole 40 mg tablet,delayed 40 mg PO QAM #90 tabs 02/20/23 release acetaminophen 325 mg tablet 650 mg (2 x 325 mg) PO Q6H PRN 06/18/23 fever of mild pain #1 tab cephalexin 500 mg capsule 500 mg PO Q6H 7 days #28 caps 09/06/23 cefuroxime axetil 500 mg tablet 500 mg PO BID #20 tabs 10/02/23 oxycodone 5 mg tablet 5 mg PO BID PRN pain #10 tabs 10/02/23 oxycodone 5 mg tablet 5 mg PO BID PRN pain #10 tabs 10/03/23 Allergies Allergy/AdvReac Type Severity Reaction Status Date / Time No Known Allergies Allergy Mild N/A Verified 11/08/23 05:38 Review of Systems 2 Review of Systems: Yes all other systems are reviewed and are negative Constitutional: Constitutional: Reports as per HPI Neurologic: Denies Abnormal speech present [facility] Past Medical History Attestation statement: The following information was validated with the patient. Source: old records reviewed Medical History NSTEMI (non-ST elevated myocardial infarction) Sepsis Pneumonia Type 2 diabetes mellitus with diabetic polyneuropathy Diverticulosis Erectile dysfunction BPH (benign prostatic hyperplasia) Carpal tunnel syndrome Cataracts, bilateral GERD (gastroesophageal reflux disease) Kidney stones Type 2 diabetes mellitus with chronic kidney disease Chronic kidney disease, stage 3 Type 2 diabetes mellitus with hyperglycemia Essential hypertension Hyperlipidemia LDL goal <70 Surgical History Hx of colonoscopy Hx of lithotripsy Family History Family History Father No problems noted. Mother Diabetes mellitus Brother Diabetes mellitus Sister Diabetes mellitus Social History Social History Household Members: Family Housing: Apartment Do you presently have visiting nurse or other home services: Yes (monthly) Alcohol intake: never Patient Tobacco Use Status: Never used Tobacco Smoked in Last 30 Days: No Use of substances other than those prescribed or required for medical reasons: No Advance Directives: Yes Advance Directives on File: Yes Advance Directives Date on File: 04/11/23 Do you have a plan to hurt others: No Plan service: No Current occupational status: retired Physical Exam 2 Vital Signs: Vital Signs: Last Vital Signs Temp 97.6 F 11/08/23 10:59 Pulse 67 11/08/23 10:59 Resp 12 11/08/23 10:59 BP 130/61 11/08/23 10:59 Pulse Ox 97 11/08/23 10:59 O2 Del Method Room Air 11/08/23 10:59 BMI result Body Mass Index 21.1 Const: General: cooperative, healthy appearing and no acute distress O rientation/consciousness: patient oriented x3 Limitations: no limitations HEENT: Other: +2.5cm deep laceration noted to forehead & 2 abrasions/skin tears Head: Yes normal to inspection, No Pierce's sign and No raccoon eyes E ars: hearing grossly normal bilaterally General nose exam: Normal external nose present Face and sinus: Yes normal facial exam Throat: Yes posterior oropharynx normal Eyes: General: appearance normal, both eyes and all related structures P upils: Equal, round and reactive pupils present EOM: EOMs intact bilaterally Neck: Neck: Yes normal visual inspection and Yes no meningeal signs Resp: Effort & Inspection: normal respiratory effort and no respiratory distress Auscultation: clear to auscultation bilaterally Cardio: Rate: regular rate Heart sounds: S1 normal heart sound present and S2 normal heart sound present GI: Inspection: Yes normal to inspection Palpation (GI): Soft to palpation, nontender, no guarding and not rigid : General: Yes no CVA tenderness Back/Spine/Pelvis: Other: No midline cervical/thoracic/lumbar spinous tenderness/step-off or deformity Back: no CVA tenderness Skin: Rashes: no rashes Wounds: no wounds Neuro: General: patient oriented x3, tone normal, moves all extremities, no meningeal signs, no focal motor deficits and CN's II-XI intact bilaterally C ranial nerves: Yes CN's II-XII intact bilaterally and Yes Equal, round and reactive pupils present Cognition (Neuro): normal cognition Speech: No Abnormal speech present Motor exam (neuro): 5/5 motor strength present throughout Extrem: Other: Bilateral shoulder/upper arm without appreciable deformity. Bilateral humeral tenderness appreciated. Neurovascularly intact distally. ROM to shoulders intact. General: Yes normal to inspection NIH Stroke Scale Internal: Initial- Upon Arrival Level of Consciousness: Alert Level of Consciousness Questions: Answers both questions correctly Level of Consciousness Commands: Performs both tasks correctly Best Gaze: Normal Visual: No visual loss Facial Palsy: Normal Motor Arm (Right): No drift Motor Arm (Left): No drift Motor Leg (Right): No drift Motor Leg (Left): No drift Limb Ataxia: Absent Sensory: Normal Best Language: No aphasia Dysarthia: Normal Extinction and Inattention: No abnormality Score: 0 Course Course Course Narrative: -0857--no leukocytosis. H / H stable. Chronic CKD. Initial troponin negative 0950--CT head/brain wo IV con IMPRESSION: Small acute subdural hematoma along the right cerebral convexity measuring up to 0.5 cm in maximum thickness.Minimal mass effect on the underlying brain parenchyma. No significant midline shift. Small soft tissue defect along the left frontal scalp likely correlating to known laceration. Small left frontal scalp soft tissue hematoma and scattered foci of gas. Mild right inferior frontal scalp soft tissue swelling. Mild volume loss with underlying chronic microangiopathy and remote infarct in the right thalamus. This critical result was discussed with Sangeetha Holman MD at 9:41 AM on 11/08/2023 and it was ascertained that the content and urgency of the report was understood at the time of direct communication > 0955--head of bed elevated. Vitals have remained stable. [facility] transfer line call. Awaiting back trauma > 8 sutures placed to forehead laceration. -1000--spoke with trauma surgeon Dr. Fofana who accepted transfer, ED to ED with trauma consult XR humerus LT IMPRESSION: Normal left humerus. XR humerus RT IMPRESSION: Normal right humerus. 1026--CT cervical spine wo IV con IMPRESSION: No cervical spine fracture or traumatic malalignment identified. Medications Administered Discontinued Medications Generic Name Dose Route Start Last Admin Trade Name Freq PRN Reason Stop Dose Admin Acetaminophen 975 mg 11/08/23 08:55 11/08/23 08:59 Acetaminophen 325 Mg Tablet PO 11/08/23 08:56 975 mg ONCE ONE Administration Lidocaine HCl 5 ml 11/08/23 07:14 11/08/23 09:02 Lidocaine Hcl 1 % Mpf 5 Ml Vial INFILTRATI 11/08/23 07:15 5 ml ONCE ONE Administration Procedures Laceration Laceration 1: Site: face (Forehead) Side (If applicable): left Size (cm): 2.5 Description: linear Depth: simple, single layer Local Anesthetic: lidocaine 1% Amount of anesthesia used (mL): 3 Pre-repair: wound explored Skin layer closed with: nylon Size (cm): 5-0 Number of sutures: 8 Technique: simple, interrupted Medical Decision Making Medical Decision Making [facility] Narrative: 78-year-old male with a past medical history of NSTEMI, diabetes, CKD, BPH, GERD, renal stones, HTN, HLD, CVA with left-sided hemiparesis, not on anticoagulation, presenting to the ED complaining of bilateral upper arm pain, and head injury s/p mechanical fall 3 hours [employer] when getting up to use the bathroom. On exam vital signs stable, NAD, no midline spinous tenderness throughout, head/facial trauma as depicted above. Bilateral upper extremity tenderness without appreciable deformity. Concern for ICH vs fractures vs contusion. Patient with history of recurrent falls, multiple ED visits recently Plan: EKG, labs, UA head/C-spine CT, x-ray, wound repair Please refer to course for remaining clinical decision making, interpretation of labs/imaging results, and discussions with consultants and/or family members. Differential Diagnosis Differential Diagnoses: The differential diagnosis associated with the presentation includes As above Admission/Observation Consideration of admission/observation: Escalation of care including admission/observation considered Lab Data [facility] Lab Attestation statement: I reviewed the patient's lab results. 11/08/23 05:43 11/08/23 05:43 Labs: Lab Results 11/08/23 11/08/23 11/08/23 Range/Units 05:43 10:06 10:10 WBC 7.0 (4.8-10.8) X10*3/uL RBC 4.65 (4.60-5.80) X10*6/uL Hgb 12.5 L (14.0-18.0) g/dl Hct 38.7 L (42.0-52.0) % MCV 83.2 (80.0-98.0) fL MCH 26.9 L (27.0-33.0) pg MCHC 32.3 (31.0-36.0) g/dl RDW 15.1 (11.0-16.0) % Plt Count 325 (160-400) X10*3/uL MPV 9.3 L (9.4-12.4) fL Immature Gran % (Auto) 0.3 (0.0-0.4) % Neut % (Auto) 60.2 (45-73) % Lymph % (Auto) 28.0 (20-40) % Pope % (Auto) 7.1 (2-11) % Eos % (Auto) 4.1 H (0-4) % Baso % (Auto) 0.3 (0-2) % Lymph # (Auto) 2.0 (1.2-4.9) X10*3/uL Pope # (Auto) 0.5 (0.1-1.2) X10*3/uL Eos # (Auto) 0.3 (0.0-0.4) X10*3/uL Baso # (Auto) 0.0 (0.0-0.2) X10*3/uL Abs Immat Gran (auto) 0.02 (0.00-0.03) X10*3/uL Absolute Neuts (auto) 4.2 (2.0-8.3) x10*3/uL Absolute Nucleated RBC 0.000 (0.0-0.012) X10*3/uL Nucleated RBC % (auto) 0.0 (0.0-0.2) /100WBC PT 11.3 (10.9-12.4) SEC INR 1.0 (0.9-1.1) APTT 31.3 (26.0-36.8) SEC Sodium 140 (135-145) mmol/L Potassium 4.5 (3.3-5.1) mmol/L Chloride 107 (96-108) mmol/L Carbon Dioxide 23 (22-29) mmol/L Anion Gap 15 (12-20) BUN 20 H (9-16) mg/dL Creatinine 1.87 H (0.5-1.4) mg/dL Estim Creat Clear Calc 26.9 Estimated GFR 35 Random Glucose 218 H (60-115) mg/dL Calcium 9.5 (8.4-10.2) mg/dL Total Bilirubin 0.4 (0.0-1.0) mg/dL AST 11 (5-37) U/L ALT 6 (0-40) U/L Alkaline Phosphatase 74 (39-117) U/L Troponin I High Sens < 2.7 D (<3.5-35.0) ng/L Total Protein 7.9 (6.5-8.0) g/dL Albumin 3.4 L (3.5-5.0) g/dL Urine Color Yellow Urine Appearance Turbid Urine pH 6.5 (5.0-9.0) Ur Specific [place] 1.015 (1.005-1.025) Urine Protein 30 (1+) H (Neg-Trace) mg/dL Urine Glucose (UA) >=1000 H (Negative) mg/dL Urine Ketones Negative (Negative) mg/dL Urine Blood Moderate (2+) H (Negative) Urine Nitrite Negative (Negative) Ur Leukocyte Esterase Large (3+) H (Negative) Urine RBC 6-10 H (0-2) /HPF Urine WBC >50 H (0-5) /HPF Ur Squamous Epith Cells 0-2 (0-2) /HPF Urine Bacteria None Seen (None Seen) Hyaline Casts 0-2 (0-2) /LPF Independent Interpretation I performed an independent interpretation of an: EKG, Plain X-Ray and CT Scan Radiology Impression Discussion of test interpretation with radiology: I have reviewed the radiologist's reading. Independent Historian Clinical information obtained from an independent historian. History obtained from or confirmed by: EMS External Record Review External record reviewed: Inpatient record, Office record, Outpatient record, Prior outpatient labs, Prior outpatient radiology, Primary care record and Outside ED record Tests considered The following testing was considered but not selected: As above Prescription Management I considered prescription management with: Pain Medication Chronic Conditions Patient?s care impacted by: Diabetes and Other (CVA) Critical Care Time Critical Care Time Critical Care Time: Yes Total Critical Care Time: 45 Attestation: I have personally provided critical care time exclusive of time spent on separately billable procedures. Time includes review of lab data, radiology results, discussion with consultants, and monitoring for potential decompensation. Intervention performed as documented. Discharge Plan Discharge Clinical Impression: Acute subdural hematoma, Forehead laceration, Bilateral arm pain Patient Disposition: [facility] Transfer Details: [facility] ED to ED w/Trauma Consult accepting Dr. Fofana Prescriptions: No Action (DME) blood-glucose meter [OneTouch Verio Meter] Misc See Rx Instructions .ROUTE .MEDSUPPLY Qty: 1 0RF Rx Instructions: As directed 4x/day (DME) OneTouch Verio test strips Strip See Rx Instructions .ROUTE .MEDSUPPLY Qty: 150 11RF Rx Instructions: 4 x/day (DME) lancets [OneTouch Delica Lancets] 33 gauge misc See Rx Instructions .ROUTE .MEDSUPPLY Qty: 200 10RF Rx Instructions: four times a day pantoprazole 40 mg tablet,delayed release (DR/EC) 40 mg PO QAM Qty: 90 1RF insulin lispro 100 unit/mL insulin pen 10 unit subcut TIDAC Rx Instructions: 15 units with breakfast and lunch and 15 units with dinner subcutaneously; mirtazapine 15 mg tablet,disintegrating 22.5 mg PO BEDTIME insulin glargine U-300 conc [Toujeo SoloStar U-300 Insulin] 300 unit/mL (1.5 mL) insulin pen 50 unit subcut BEDTIME acetaminophen 325 mg Tablet 650 mg PO Q6H PRN (Reason: fever of mild pain) Qty: 1 0RF cephalexin 500 mg capsule 500 mg PO Q6H 7 Days Qty: 28 0RF amlodipine [Norvasc] 5 mg tablet 5 mg PO BEDTIME gabapentin 300 mg capsule 300 mg PO BEDTIME Jardiance 25 mg tablet 25 mg PO QAM cefuroxime axetil 500 mg tablet 500 mg PO BID Qty: 20 0RF oxycodone 5 mg tablet 5 mg PO BID PRN (Reason: pain) Qty: 10 0RF Rx Instructions: Partial Fill upon patient request. oxycodone 5 mg tablet 5 mg PO BID PRN (Reason: pain) Qty: 10 0RF Rx Instructions: Partial Fill upon patient request. (DME) pen needle, diabetic [Pentips] 32 gauge x 5/32 needle See Rx Instructions .ROUTE .MEDSUPPLY Qty: 50 Rx Instructions: As directed 4 TIMES A DAY furosemide 20 mg tablet 20 mg PO Q48H carvedilol [Coreg] 6.25 mg tablet 6.25 mg PO BID 90 Days Qty: 180 3RF Rx Instructions: must administer with a meal/food Interventions: Acute Care Transfer Worksheet (ED) Last Done: 11/08/23 10:59 Discharge Date/Time: 11/08/23 11:00 Print Language: Thai
[2023-11-08] MEDS: Acetaminophen 325 MG TABLET 975 MG PO (08:59)
[2023-11-08] MEDS: Lidocaine HCl 1 % MPF 5 ML VIAL INFILTRATI (09:02)
[2023-11-08 09:57] VITALS: BP 130/61; PULSE 67; RESP 12; TEMP 36.4; O2SAT 97
[2023-11-08 10:17] LABS: Appearance Urine Turbid; Color Urine Yellow; Glucose Urine UA >=1000 mg/dL (Negative); Leukocyte Esterase Urine Large (3+) (Negative); Nitrite Urine Negative (Negative); PH 6.5 (5.0-9.0); Specific Gravity - Urine 1.015 (1.005-1.025); UMIC TRIGGER UACC YES; Urine Blood Moderate (2+) (Negative); Urine Ketones Negative (Negative); Urine Protein 30 (1+) mg/dL (Neg-Trace)
[2023-11-08 10:22] LABS: Bacteria Urine None Seen (None Seen); Hyaline Casts Urine 0-2 /LPF (0-2); Squamous Epithelial Cell Urine 0-2 /HPF (0-2); UACC Culture Trigger YES; WBC Urine >50 /HPF (0-5)
[2023-11-08 10:25] LABS: Prothrombin Time 11.3 SEC (10.9-12.4)
[2023-11-08 10:27] LABS: Partial Thromboplastin Time 31.3 SEC (26.0-36.8)
--- NOTE | 2023-11-08 10:56 | PC.NURSE ---
Call placed to [facility] ED for Rn to RN report. Spoke with ELICEO Feldman. Review of Pts course of care reviewed. Francia given opportunity for questions and advised Pt is in route.
[2023-11-08 10:59] VITALS: BP 130/61; PULSE 67; RESP 12; TEMP 36.4; O2SAT 97
== END 2023-11-08 11:00 | disposition short-term general hospital (02) ==
PROVIDERS: Physician Assistant; Emergency Provider Emergency Medicine; PCP Family Medicine
DX: S06.5X0A Traumatic subdural hemorrhage without loss of consciousness, initial encounter (principal); S01.81XA Laceration without foreign body of other part of head, initial encounter; W01.190A Fall on same level from slipping, tripping and stumbling with subsequent striking against furniture, initial encounter; M79.602 Pain in left arm; M79.601 Pain in right arm; E11.22 Type 2 diabetes mellitus with diabetic chronic kidney disease; I13.0 Hypertensive heart and chronic kidney disease with heart failure and stage 1 through stage 4 chronic kidney disease, or unspecified chronic kidney disease; N18.30 Chronic kidney disease, stage 3 unspecified; I50.9 Heart failure, unspecified; N17.9 Acute kidney failure, unspecified; E78.5 Hyperlipidemia, unspecified; Z79.4 Long term (current) use of insulin; Z79.899 Other long term (current) drug therapy; R29.700 NIHSS score 0; Y93.89 Activity, other specified; Y92.019 Unspecified place in single-family (private) house as the place of occurrence of the external cause; Y99.9 Unspecified external cause status
CPT/HCPCS: 12011; 36415; 70450; 72125; 73060; 80053; 81001; 84484; 85025; 85610; 85730; 87086; 99285

== ENCOUNTER 2023-12-18 20:53 | Inpatient (IN) | payer OTHER, SELFPAY ==
--- NOTE | ~2023-12-18 | CT_ITS ---
EXAMINATION: CT ABDOMEN AND PELVIS WITHOUT CONTRAST CLINICAL INFORMATION: Bilateral flank pain. COMPARISON: CT abdomen and pelvis 06/14/2023 TECHNIQUE: Multidetector volumetric imaging was performed from the superior aspect of the liver through the pubic symphysis. Sagittal and coronal reformatted images were obtained on the technologist's workstation. This CT examination was performed using dose optimization techniques as appropriate, variously including the following: *Automated exposure control *Adjustment of mA and/or kV according to patient size (this includes techniques or standardized protocols for targeted exams where dose is matched to indication/reason for exam; i.e. extremities or head) *Use of iterative reconstruction technique DLP: 503 mGy-cm FINDINGS: LUNG BASES: The visualized lung bases are unremarkable. LIVER, GALLBLADDER, AND BILIARY TREE: The liver is normal in size, shape, and attenuation. No focal hepatic lesion or biliary ductal dilatation is present. Multiple radiodense dependent layering gallstones are present within the gallbladder lumen similar findings present for 09/07/2023. PANCREAS: Unremarkable. SPLEEN: Unremarkable. ADRENAL GLANDS: Unremarkable. KIDNEYS AND URETERS: Mild left hydronephrosis and mild left ureterectasis is present similar findings present for 09/07/2023. Furthermore, mild reticulation of the left perinephric fat is present similar findings present for 09/07/2023. Additionally, a 6 cm diameter rounded low density benign-appearing simple cyst 14 no additional imaging follow-up is associated with the superior pole of the left kidney. A 1 cm rounded benign-appearing simple cyst is noted in the posterior interpolar segment of the right kidney warrants no additional imaging follow-up. No urolithiasis is identified. BLADDER: Unremarkable. GASTROINTESTINAL TRACT: Mild colonic diverticulosis. Normal appearance of the appendix. No free intraperitoneal fluid or gas collections. No intestinal dilatation or mural thickening. Normal appearance of the stomach and duodenum. ABDOMINAL WALL: Mild bilateral lower quadrant subcutaneous reticulation which may relate to subcutaneous injections. LYMPH NODES: Normal. VASCULAR: Moderate diffuse calcific atherosclerosis. Diffuse Monckeberg type vascular calcifications. PELVIC VISCERA: The prostate measures 4.5 cm in AP dimension, above normal limits of size. OSSEOUS STRUCTURES: No suspicious skeletal lesions. CT/CT abdomen pelvis wo IV con IMPRESSION: 1. Mild left hydronephrosis and mild left ureterectasis. No urolithiasis identified. Mild reticulation of the left perinephric fat is present. Findings are suspicious for a recently passed left-sided calculus. Findings could also be secondary to pyelonephritis. Similar findings were present on the comparison study of 06/14/2023. 2. Cholelithiasis. 3. Mild colonic diverticulosis. No evidence of acute diverticulitis. 4. Normal appendix. Electronically signed by: Norman Crooks MD 12/19/2023 03:56 AM EDT
--- NOTE | ~2023-12-18 | XR_ITS ---
EXAMINATION: XR CHEST CLINICAL INFORMATION: Fever. COMPARISON: CT chest 10/02/2023. TECHNIQUE: Frontal view of the chest was obtained. FINDINGS: Normal appearance of the cardiomediastinal structures. No effusions or pneumothoraces. No focal pulmonary consolidation. Normal pattern of pulmonary vasculature mild aortic calcific atherosclerosis. XR/XR chest 1V IMPRESSION: *No acute cardiopulmonary abnormalities. *Mild aortic calcific atherosclerosis. Electronically signed by: Norman Crooks MD 12/19/2023 01:39 AM EDT
--- NOTE | ~2023-12-18 | NM_ITS ---
EXAMINATION: DIURETIC RENOGRAM WITH Tc 99m DTPA CLINICAL INFORMATION: Reason for exam: Hydronephrosis. CORRELATION: CT abdomen and pelvis from December 19, 2023. TECHNIQUE: Serial gamma scintillation camera images were obtained over the posterior trunk during the initial transit and subsequent distribution of a bolus intravenous injection of 10 mCi of Tc-99m DTPA. At 30 minutes later, 31 mg of Lasix was administered intravenously and an additional 30 minutes of images obtained. FINDINGS: Initial rapid sequence images show prompt and bilaterally symmetrical flow to the kidneys. Subsequent sequential static images during nephrogenic phase, there is good parenchymal uptake with peak followed by normal corticomedullary transit in both kidneys. Both renal collecting systems demonstrate, spontaneous and good clearance of the radiotracer with further response following intravenous Lasix administration on the excretory phase. The T-1/2 post Lasix are not applicable as most of the activity is well clear prior to the Lasix administration. The relative function of the two kidneys based on the 2-3 minute images are: Left 58.6% and right 41.4%. NM/NM renal flow w pharm int IMPRESSION: Normal functioning renal parenchyma bilaterally with no evidence for obstruction. Electronically signed by: Delicia Calvert MD 12/24/2023 11:21 AM EFE
[2023-12-18 21:01] VITALS: BP 150/72; PULSE 108; O2SAT 22
[2023-12-18 21:27] VITALS: BP 144/66; PULSE 105; RESP 16; TEMP 38.8; O2SAT 95; BMI 22.5
[2023-12-18 22:04] LABS: Basophils Percent Auto 0.2 % (0-2); Eosinophils Absolute Auto 0.1 X10*3/uL (0.0-0.4); Eosinophils Percent Auto 0.3 % (0-4); Hematocrit 37.4 % (42.0-52.0); Hemoglobin 11.9 g/dl (14.0-18.0); Imm Gran Abs Auto 0.06 X10*3/uL (0.00-0.03); Imm Gran Pct Auto 0.3 % (0.0-0.4); Lymphocytes Absolute Auto 0.5 X10*3/uL (1.2-4.9); Lymphocytes Percent Auto 2.9 % (20-40); MANUAL DIFF FLAG SCAN; Mean Corpuscular HGB Conc 31.8 g/dl (31.0-36.0); Mean Corpuscular Volume 81.7 fL (80.0-98.0); Mean Platelet Volume 8.9 fL (9.4-12.4); Monocytes Percent Auto 5.4 % (2-11); Neutrophils Absolute Auto 16.2 x10*3/uL (2.0-8.3); Neutrophils Percent Auto 90.9 % (45-73); Platelet Count 364 X10*3/uL (160-400); Red Blood Count 4.58 X10*6/uL (4.60-5.80); Red Cell Distribution Width 14.5 % (11.0-16.0); SCAN SMEAR FLAG 1; White Blood Count 17.9 X10*3/uL (4.8-10.8)
[2023-12-18 22:19] LABS: Alanine Aminotransferase < 6 U/L (0-40); Albumin Level 3.4 g/dL (3.5-5.0); Alkaline Phosphatase 94 U/L (39-117); Anion Gap 19 (12-20); Aspartate Amino Transferase 15 U/L (5-37); Bilirubin Total 0.5 mg/dL (0.0-1.0); Blood Urea Nitrogen 26 mg/dL (9-16); Calcium 9.9 mg/dL (8.4-10.2); Carbon Dioxide 19 mmol/L (22-29); Chloride 107 mmol/L (96-108); Estimated Glomerular Filt Rate 27; Glucose Random 210 mg/dL (60-115); Potassium 4.5 mmol/L (3.3-5.1); Sodium 140 mmol/L (135-145); Total Protein 8.3 g/dL (6.5-8.0)
[2023-12-18 22:29] VITALS: BP 133/69; PULSE 102; RESP 26; TEMP 38.3; O2SAT 96
[2023-12-18 22:30] LABS: SLIDE REVIEW VERIFIED
[2023-12-18] MEDS: Acetaminophen 325 MG TABLET 650 MG PO (22:31)
[2023-12-18 22:42] LABS: Influenza A PCR NEGATIVE (Negative); Influenza B PCR NEGATIVE (Negative); Resp Syncy Virus RNA Qual PCR NEGATIVE (Negative); SARS COV2 PCR INHOUSE NEGATIVE (Negative)
--- NOTE | 2023-12-18 23:33 | ED.NAVMDI ---
HPI - Nausea/Vomiting/Diarrhea General Chief complaint: Nausea/Vomiting/Diarrhea Stated complaint: weakness, nausea, vomiting x3, diarrhea Time Seen by Provider: 12/18/23 23:10 Source: patient and EMS Mode of arrival: EMS Limitations: no limitations History of Present Illness ED Provider: Dr. Maxine Shin HPI Narrative: Patient comes to the emergency room complaining couple of days of nausea vomiting diarrhea. According to EMS, patient was too weak to stand up. Patient reports that he has been vomiting all day and having multiple episodes of diarrhea that started earlier this evening. Patient states he does not have abdominal pain. However, patient states that he feels extremely weak. At baseline patient is able to walk with his walker but has not been able to even stand up from bed. Patient lives at home with his . Related Data Home Medications ?Medication ?Instructions ?Recorded ?Confirmed furosemide 20 mg tablet 20 mg PO Q48H 03/29/22 09/04/23 pen needle, diabetic 32 gauge x #50 ea 03/29/22 11/08/22 (Pentips) amlodipine 5 mg tablet (Norvasc) 5 mg PO BEDTIME 04/10/23 09/06/23 gabapentin 300 mg capsule 300 mg PO BEDTIME 04/10/23 09/04/23 empagliflozin 25 mg tablet 25 mg PO QAM 04/11/23 09/04/23 (Jardiance) insulin glargine U-300 conc 300 50 unit subcut BEDTIME 06/14/23 09/06/23 unit/mL (1.5 mL) subcutaneous pen ([employer] SoloStar U-300 Insulin) insulin lispro 100 unit/mL 10 unit subcut TIDAC 06/14/23 09/06/23 subcutaneous pen mirtazapine 15 mg disintegrating 22.5 mg PO BEDTIME 06/14/23 09/06/23 tablet Previous Rx's ?Medication ?Instructions ?Recorded blood sugar diagnostic (OneTouch #150 ea 04/28/21 Verio test strips) blood-glucose meter (OneTouch #1 ea 04/28/21 Verio Meter) lancets 33 gauge (OneTouch Delica #200 ea 04/28/21 Lancets) carvedilol 6.25 mg tablet (Coreg) 6.25 mg PO BID 90 days #180 tabs 11/08/22 pantoprazole 40 mg tablet,delayed 40 mg PO QAM #90 tabs 02/20/23 release acetaminophen 325 mg tablet 650 mg (2 x 325 mg) PO Q6H PRN 06/18/23 fever of mild pain #1 tab cephalexin 500 mg capsule 500 mg PO Q6H 7 days #28 caps 09/06/23 cefuroxime axetil 500 mg tablet 500 mg PO BID #20 tabs 10/02/23 oxycodone 5 mg tablet 5 mg PO BID PRN pain #10 tabs 10/02/23 oxycodone 5 mg tablet 5 mg PO BID PRN pain #10 tabs 10/03/23 Allergies Allergy/AdvReac Type Severity Reaction Status Date / Time No Known Allergies Allergy Mild N/A Verified 12/18/23 21:38 Review of Systems Review of Systems: Constitutional : No Weight loss, No Fever, No Chills, No Night Sweats, complaining of fatigue and generalized malaise ENT/Mouth : No Hearing loss, No Ear Pain, No Nasal Congestion, No Sinus Pain, No Hoarseness, No sore throat, No Rhinorrhea, No Swallowing Difficulty Eyes: No Eye Pain, No Swelling, No Redness, No Foreign Body, No Discharge, No Vision Changes Cardiovascular : No Chest Pain, No SOB, No Dyspnea on Exertion, No Orthopnea, No Edema, No Palpitations Respiratory : No Cough, No Sputum, No Wheezing, No Smoke Exposure, No Dyspnea Gastrointestinal : Complaining of nausea vomiting and diarrhea, No Constipation, No abdominal Pain, No Hematochezia, No Melena Genitourinary : no irregular bleeding, No Dysuria, No Urinary Frequency, No Hematuria, No Urinary Incontinence, No Urgency, No Flank Pain, No Urinary Flow Changes, No Hesitancy Musculoskeletal : No joint pain, No Myalgias, No Joint Swelling Skin : No Skin Lesions, No rash Neuro : No Weakness, No Numbness, No Paresthesias, No Loss of Consciousness, No Dizziness, No Headache Psych : No Anxiety/Panic, No Depression, No SI/HI/AH/VH, No Social Issues, Heme/Lymph: No Bruising, No Bleeding,No Lymphadenopathy Endocrine : No Polyuria, No Polydipsia, No Temperature Intolerance PMFSH Past Medical History Medical History NSTEMI (non-ST elevated myocardial infarction) Sepsis Pneumonia Type 2 diabetes mellitus with diabetic polyneuropathy Diverticulosis Erectile dysfunction BPH (benign prostatic hyperplasia) Carpal tunnel syndrome Cataracts, bilateral GERD (gastroesophageal reflux disease) Kidney stones Type 2 diabetes mellitus with chronic kidney disease Chronic kidney disease, stage 3 Type 2 diabetes mellitus with hyperglycemia Essential hypertension Hyperlipidemia LDL goal <70 Surgical History Hx of colonoscopy Hx of lithotripsy Family History Family History Father No problems noted. Mother Diabetes mellitus Brother Diabetes mellitus Sister Diabetes mellitus Social History Social History Household Members: Family Housing: Apartment Do you presently have visiting nurse or other home services: Yes (monthly) Alcohol intake: never Patient Tobacco Use Status: Never used Tobacco Smoked in Last 30 Days: No Use of substances other than those prescribed or required for medical reasons: No Advance Directives: Yes Advance Directives on File: Yes Advance Directives Date on File: 04/11/23 Do you have a plan to hurt others: No Plan service: No Current occupational status: retired Physical Exam Vital Signs: Vital Signs: Last Vital Signs Temp 98.0 F 12/19/23 00:14 Pulse 96 12/19/23 00:14 Resp 24 H 12/19/23 00:14 BP 135/71 12/19/23 00:14 Pulse Ox 94 12/19/23 00:14 O2 Del Method Room Air 12/19/23 00:14 BMI result Body Mass Index 22.5 Const: Other: Appearance: Alert. Oriented X3. No acute distress. Patient's seems weak, needs help sitting up, can not do it by himself Eyes: Pupils equal, round and reactive to light. ENT: Pharynx normal. Neck: Normal inspection. Neck supple. No lymph nodes noted. No crepitus CVS: Normal heart rate and rhythm. Pulses normal. Normal S1 and S2 Respiratory: No respiratory distress. Breath sounds normal. No Wheezing. No rales Abdomen: Soft , no abdominal pain to palpation. No rigidity. No distention. Skin: Skin warm and dry. Normal skin color. Normal skin turgor. Extremities: No lower extremity edema. No Lacerations. No Rash Neuro: Oriented X 3. No motor deficit. No sensory deficit. Moving all extremities. No slurred speech. CN 2 through 12 grossly intact Psych: calm, cooperative, normal affect Course Course Course Narrative: -all of patient's labs and imaging pending -patient has a fever of 101.8. Blood pressure 144/66. Patient states that he has been coughing and having dysuria for 3 weeks. -empirically, patient being treated with IV levofloxacin to cover for pulmonary and urinary infections, also patient receiving IV fluids Medications Administered Generic Name Dose Route Start Last Admin Trade Name Freq PRN Reason Stop Dose Admin Sodium Chloride 2,000 mls @ 999 mls/hr 12/18/23 23:31 12/19/23 00:08 Ns IVCONT 12/19/23 01:31 999 mls/hr .Q2H1M ONE Administration Discontinued Medications Generic Name Dose Route Start Last Admin Trade Name Freq PRN Reason Stop Dose Admin Acetaminophen 650 mg 12/18/23 22:23 12/18/23 22:31 Acetaminophen 325 Mg Tablet PO 12/18/23 22:24 650 mg ONCE ONE Administration Levofloxacin 500 mg in 100 mls @ 100 mls/hr 12/18/23 23:31 12/19/23 00:08 Levaquin IV 12/19/23 00:30 100 mls/hr ONCE ONE Administration Medical Decision Making Medical Decision Making [facility] Narrative: My interpretation of labs: Patient's white blood cell count 17.9, chemistry shows a creatinine of 2.33 which is a bit higher than patient's average. Patient does have history of chronic kidney disease. Lactic acid 2.5. Sepsis is not suspected, no episodes of hypotension. Patient has had multiple episodes of diarrhea here in the emergency room, no vomiting. Patient's labs likely secondary to dehydration., viral gastritis. -before we got the labs, patient received a dose levofloxacin, patient has been reporting dysuria for 3 weeks. Also coughing. -my interpretation of chest x-ray, no obvious abnormality, report from radiology is pending. -patient received loperamide and Zofran. Patient continues having diarrhea. -I discussed the patient with Dr. Ramos from Internal Medicine -patient denies taking any recent antibiotics. C diff pending, also stool PCR. Two years ago patient tested positive for 3 strains of E coli Differential Diagnosis Differential Diagnoses: The differential diagnosis associated with the presentation includes (Gastritis, gastroenteritis) Admission/Observation Consideration of admission/observation: Escalation of care including admission/observation considered Consult Healthcare Provider Management of the patient was discussed with: Hospitalist Lab Data MDM Lab Attestation statement: I reviewed the patient's lab results. 12/18/23 21:59 12/18/23 21:59 Labs: Lab Results 12/18/23 12/18/23 12/19/23 Range/Units 21:59 23:54 00:17 WBC 17.9 H (4.8-10.8) X10*3/uL RBC 4.58 L (4.60-5.80) X10*6/uL Hgb 11.9 L (14.0-18.0) g/dl Hct 37.4 L (42.0-52.0) % MCV 81.7 (80.0-98.0) fL MCH 26.0 L (27.0-33.0) pg MCHC 31.8 (31.0-36.0) g/dl RDW 14.5 (11.0-16.0) % Plt Count 364 (160-400) X10*3/uL MPV 8.9 L (9.4-12.4) fL Immature Gran % (Auto) 0.3 (0.0-0.4) % Neut % (Auto) 90.9 H (45-73) % Lymph % (Auto) 2.9 L (20-40) % [place] % (Auto) 5.4 (2-11) % Eos % (Auto) 0.3 (0-4) % Baso % (Auto) 0.2 (0-2) % Lymph # (Auto) 0.5 L (1.2-4.9) X10*3/uL [place] # (Auto) 1.0 (0.1-1.2) X10*3/uL Eos # (Auto) 0.1 (0.0-0.4) X10*3/uL Baso # (Auto) 0.0 (0.0-0.2) X10*3/uL Abs Immat Gran (auto) 0.06 H (0.00-0.03) X10*3/uL Absolute Neuts (auto) 16.2 H (2.0-8.3) x10*3/uL Absolute Nucleated RBC 0.000 (0.0-0.012) X10*3/uL Nucleated RBC % (auto) 0.0 (0.0-0.2) /100WBC Smear Tech's Comments VERIFIED Sodium 140 (135-145) mmol/L Potassium 4.5 (3.3-5.1) mmol/L Chloride 107 (96-108) mmol/L Carbon Dioxide 19 L (22-29) mmol/L Anion Gap 19 (12-20) BUN 26 H (9-16) mg/dL Creatinine 2.33 H (0.5-1.4) mg/dL Estim Creat Clear Calc 23.0 Estimated GFR 27 Random Glucose 210 H (60-115) mg/dL Lactic Acid 2.5 H* (0.5-2.0) mmol/L Calcium 9.9 (8.4-10.2) mg/dL Total Bilirubin 0.5 (0.0-1.0) mg/dL AST 15 (5-37) U/L ALT < 6 (0-40) U/L Alkaline Phosphatase 94 (39-117) U/L Total Protein 8.3 H (6.5-8.0) g/dL Albumin 3.4 L (3.5-5.0) g/dL Urine Color Yellow Urine Appearance Turbid Urine pH 6.0 (5.0-9.0) Ur Specific [place] 1.015 (1.005-1.025) Urine Protein 100 (2+) H (Neg-Trace) mg/dL Urine Glucose (UA) >=1000 H (Negative) mg/dL Urine Ketones Negative (Negative) mg/dL Urine Blood Large (3+) H (Negative) Urine Nitrite Negative (Negative) Ur Leukocyte Esterase Moderate (2+) H (Negative) Urine RBC >20 H (0-2) /HPF Urine WBC >50 H (0-5) /HPF Ur Squamous Epith Cells 3-5 (0-2) /HPF Urine Bacteria Trace (None Seen) Hyaline Casts 0-2 (0-2) /LPF Urine Yeast Present Influenza Type A (PCR) NEGATIVE (Negative) Influenza Type B (PCR) NEGATIVE (Negative) RSV RNA Qual (PCR) NEGATIVE (Negative) SARS-CoV-2 RNA (RT-PCR) NEGATIVE (Negative) Independent Interpretation I performed an independent interpretation of an: Plain X-Ray Critical Care Time Critical Care Time Critical Care Time: Yes Total Critical Care Time: 60 Attestation: I have personally provided critical care time. Time includes review of lab data, radiology results, discussion with consultants, and monitoring for potential decompensation. Intervention performed as documented. Discharge Plan Discharge Clinical Impression: Nausea vomiting and diarrhea, Acute kidney injury superimposed on chronic kidney disease Patient Disposition: Admitted As Inpatient Prescriptions: No Action (DME) blood-glucose meter [OneTouch Verio Meter] Misc See Rx Instructions .ROUTE .MEDSUPPLY Qty: 1 0RF Rx Instructions: As directed 4x/day (DME) OneTouch Verio test strips Strip See Rx Instructions .ROUTE .MEDSUPPLY Qty: 150 11RF Rx Instructions: 4 x/day (DME) lancets [OneTouch Delica Lancets] 33 gauge misc See Rx Instructions .ROUTE .MEDSUPPLY Qty: 200 10RF Rx Instructions: four times a day pantoprazole 40 mg tablet,delayed release (DR/EC) 40 mg PO QAM Qty: 90 1RF insulin lispro 100 unit/mL insulin pen 10 unit subcut TIDAC Rx Instructions: 15 units with breakfast and lunch and 15 units with dinner subcutaneously; mirtazapine 15 mg tablet,disintegrating 22.5 mg PO BEDTIME insulin glargine U-300 conc [Toujeo SoloStar U-300 Insulin] 300 unit/mL (1.5 mL) insulin pen 50 unit subcut BEDTIME acetaminophen 325 mg Tablet 650 mg PO Q6H PRN (Reason: fever of mild pain) Qty: 1 0RF cephalexin 500 mg capsule 500 mg PO Q6H 7 Days Qty: 28 0RF amlodipine [Norvasc] 5 mg tablet 5 mg PO BEDTIME gabapentin 300 mg capsule 300 mg PO BEDTIME Jardiance 25 mg tablet 25 mg PO QAM cefuroxime axetil 500 mg tablet 500 mg PO BID Qty: 20 0RF oxycodone 5 mg tablet 5 mg PO BID PRN (Reason: pain) Qty: 10 0RF Rx Instructions: Partial Fill upon patient request. oxycodone 5 mg tablet 5 mg PO BID PRN (Reason: pain) Qty: 10 0RF Rx Instructions: Partial Fill upon patient request. (DME) pen needle, diabetic [Pentips] 32 gauge x needle See Rx Instructions .ROUTE .MEDSUPPLY Qty: 50 Rx Instructions: As directed 4 TIMES A DAY furosemide 20 mg tablet 20 mg PO Q48H carvedilol [Coreg] 6.25 mg tablet 6.25 mg PO BID 90 Days Qty: 180 3RF Rx Instructions: must administer with a meal/food Print Language: Frisian
[2023-12-19] VITALS (10 sets, daily range): BP systolic 96–135; BP diastolic 48–71; PULSE 72–96; RESP 16–24; TEMP 36.1–36.7; O2SAT 94–98; BMI 22.5
[2023-12-19] MEDS: 0.9 % Sodium Chloride 2,000 ML 999 ML IVCONT (00:08)
[2023-12-19] MEDS: levoFLOXacin/D5W 500 MG/100 ML PIGGYBACK 100 MG IV (00:08)
[2023-12-19 00:30] LABS: Lactic Acid 2.5 mmol/L (0.5-2.0)
[2023-12-19 00:34] LABS: Appearance Urine Turbid; Color Urine Yellow; Glucose Urine UA >=1000 mg/dL (Negative); Leukocyte Esterase Urine Moderate (2+) (Negative); Nitrite Urine Negative (Negative); Specific Gravity - Urine 1.015 (1.005-1.025); UMIC TRIGGER UACC YES; Urine Blood Large (3+) (Negative); Urine Ketones Negative (Negative); Urine Protein 100 (2+) mg/dL (Neg-Trace)
[2023-12-19 00:44] LABS: Bacteria Urine Trace (None Seen); Hyaline Casts Urine 0-2 /LPF (0-2); RBC Urine >20 /HPF (0-2); UACC Culture Trigger YES; WBC Urine >50 /HPF (0-5)
[2023-12-19] MEDS: ondansetron HCL 4 MG/2 ML VIAL IVPUSH (01:40)
--- NOTE | 2023-12-19 01:41 | PC.NURSE ---
MD Ramos accepting to hold Immodium at this time as pt has not had a bowel movement since being at the hospital
--- NOTE | 2023-12-19 01:52 | P.HPHOSP_ITS ---
History of Present Illness Date of Service: 12/19/23 Chief Complaint: Fever and dysuria This is a 78-year-old male with pertinent history of insulin-dependent diabetes mellitus, hypertension, CKD stage 3, mixed hyperlipidemia, history of nephrolithiasis, CVA with left-sided hemiparesis, neuropathy, mood disorder who presents to the emergency department for evaluation of dysuria and vomiting. Patient states his symptoms started 1 day prior to presentation. He has been having dysuria and increased urinary frequency. Also states that had oatmeal 1 day prior to presentation and thinks that it was not good. Patient has had multiple episodes of nonbloody emesis throughout the day. Denies abdominal discomfort. Denies diarrhea. Endorses weakness and easy fatigability. Also admits fevers. No chest pain, cough, palpitation, shortness of breath, changes in bowel habits. In the emergency department, patient was found to be septic and resuscitated with IV crystalloids. He was found to have AMERICO and urine concerning for acute UTI. Review of Systems 2 Constitutional: Constitutional: Reports fatigue, Reports fever(s), Reports lethargy, Reports malaise and Reports weakness Cardiovascular: Cardiovascular: Reports no additional cardiovascular complaints Respiratory: Respiratory: Reports no additional respiratory complaints Gastrointestinal: Gastrointestinal: Reports nausea and Reports vomiting Genitourinary: Genitourinary: Reports dysuria and Reports urinary frequency Neurologic: Reports weakness Endocrine: Endocrine: Reports fatigue [facility] Medical History NSTEMI (non-ST elevated myocardial infarction) Sepsis Pneumonia Type 2 diabetes mellitus with diabetic polyneuropathy Diverticulosis Erectile dysfunction BPH (benign prostatic hyperplasia) Carpal tunnel syndrome Cataracts, bilateral GERD (gastroesophageal reflux disease) Kidney stones Type 2 diabetes mellitus with chronic kidney disease Chronic kidney disease, stage 3 Type 2 diabetes mellitus with hyperglycemia Essential hypertension Hyperlipidemia LDL goal <70 Family History Father No problems noted. Mother Diabetes mellitus Brother Diabetes mellitus Sister Diabetes mellitus Surgical History Hx of colonoscopy Hx of lithotripsy Social History Household Members: Family Housing: Apartment Do you presently have visiting nurse or other home services: Yes (monthly) Alcohol intake: never Patient Tobacco Use Status: Never used Tobacco Smoked in Last 30 Days: No Use of substances other than those prescribed or required for medical reasons: No Advance Directives: Yes Advance Directives on File: Yes Advance Directives Date on File: 04/11/23 Do you have a plan to hurt others: No Plan service: No Current occupational status: retired Meds Allergies Allergy/AdvReac Type Severity Reaction Status Date / Time No Known Allergies Allergy Mild N/A Verified 12/18/23 21:38 Home Medications ?Medication ?Instructions ?Recorded ?Confirmed ?Last Taken ?Type furosemide 20 mg tablet 20 mg PO Q48H 03/29/22 12/19/23 Unknown History pen needle, diabetic 32 gauge x #50 ea 03/29/22 11/08/22 Unknown History (Pentips) amlodipine 5 mg tablet (Norvasc) 5 mg PO BEDTIME 04/10/23 09/06/23 Unknown History gabapentin 300 mg capsule 300 mg PO BEDTIME 04/10/23 12/19/23 Unknown History empagliflozin 25 mg tablet 25 mg PO QAM 04/11/23 12/19/23 Unknown History (Jardiance) insulin glargine U-300 conc 300 50 unit subcut BEDTIME 06/14/23 09/06/23 Unknown History unit/mL (1.5 mL) subcutaneous pen (Toujeo SoloStar U-300 Insulin) insulin lispro 100 unit/mL 10 unit subcut TIDAC 06/14/23 09/06/23 3 Weeks Ago History subcutaneous pen ~05/23/23 15 unit mirtazapine 15 mg disintegrating 22.5 mg PO BEDTIME 06/14/23 12/19/23 Unknown History tablet Physical Exam 2 Vital Signs and Narrative: Vital Signs: Last Vital Signs Temp 98.0 F 12/19/23 00:14 Pulse 89 12/19/23 01:48 Resp 24 H 12/19/23 00:14 BP 107/51 L 12/19/23 01:48 Pulse Ox 94 12/19/23 00:14 O2 Del Method Room Air 12/19/23 00:14 BMI result Body Mass Index 22.5 Middle-aged male lying in bed in no distress Neck supple, no JVD Regular rate and rhythm, S1-S2 heard Regular breath sounds bilaterally, no wheezing or crackles appreciated Abdomen with left CVA tenderness, no rigidity, no guarding Patient is awake, alert and oriented to self, place, time and person ; no focal motor deficit Psych: Normal mood No pedal edema Results Labs 12/19/23 02:09 12/19/23 02:09 Labs: Laboratory Results - last 24 hr 12/18/23 12/18/23 12/19/23 21:59 23:54 00:17 MCV 81.7 MCH 26.0 L MCHC 31.8 RDW 14.5 Plt Count 364 MPV 8.9 L Immature Gran % (Auto) 0.3 Neut % (Auto) 90.9 H Lymph % (Auto) 2.9 L [place] % (Auto) 5.4 Eos % (Auto) 0.3 Baso % (Auto) 0.2 Lymph # (Auto) 0.5 L [place] # (Auto) 1.0 Eos # (Auto) 0.1 Baso # (Auto) 0.0 Abs Immat Gran (auto) 0.06 H Absolute Neuts (auto) 16.2 H Absolute Nucleated RBC 0.000 Nucleated RBC % (auto) 0.0 Smear Tech's Comments VERIFIED Anion Gap 19 Estim Creat Clear Calc 23.0 Estimated GFR 27 Random Glucose 210 H Lactic Acid 2.5 H* Calcium 9.9 Total Bilirubin 0.5 AST 15 ALT < 6 Alkaline Phosphatase 94 Total Protein 8.3 H Albumin 3.4 L Urine Color Yellow Urine Appearance Turbid Urine pH 6.0 Ur Specific [place] 1.015 Urine Protein 100 (2+) H Urine Glucose (UA) >=1000 H Urine Ketones Negative Urine Blood Large (3+) H Urine Nitrite Negative Ur Leukocyte Esterase Moderate (2+) H Urine RBC >20 H Urine WBC >50 H Ur Squamous Epith Cells 3-5 Urine Bacteria Trace Hyaline Casts 0-2 Urine Yeast Present Influenza Type A (PCR) NEGATIVE Influenza Type B (PCR) NEGATIVE RSV RNA Qual (PCR) NEGATIVE SARS-CoV-2 RNA (RT-PCR) NEGATIVE Imaging Radiologist's Impressions: Impressions Chest X-Ray 12/19/23 00:00 IMPRESSION: *No acute cardiopulmonary abnormalities. *Mild aortic calcific atherosclerosis. Electronically signed by: Norman Crooks MD 12/19/2023 01:39 AM EDT RP Assessment and Plan (1) Pyelonephritis: Status: Acute (2) Acute kidney injury superimposed on chronic kidney disease: Status: Acute Plan This is a 78-year-old male with pertinent history of insulin-dependent diabetes mellitus, hypertension, CKD stage 3, mixed hyperlipidemia, history of nephrolithiasis, CVA with left-sided hemiparesis, neuropathy, mood disorder who presents to the emergency department for evaluation of dysuria and vomiting. #. Sepsis due to acute left-sided pyelonephritis with UTI: Will admit patient with empiric IV Rocephin. Resuscitated with IV crystalloids. Lactic acid and blood culture obtained. Urine culture pending #. Acute lactic acidosis due to sepsis #. Acute kidney injury on CKD stage 3: Monitor creatinine urine output with crystalloid resuscitation. Avoid nephrotoxins #. Hypertension: Hold furosemide in the setting of AMERICO #. Insulin-dependent diabetes mellitus with hyperglycemia: Initiating basal plus insulin regimen #. Peripheral neuropathy: On gabapentin #. Mood disorder: On Remeron Med rec pending DVT prophylaxis: Lovenox Full code Admit as inpatient and will require two night minimum hospital stay for IV antibiotics (as above), which is not possible in a lesser acute setting. Quality Stroke Does the patient have a stroke diagnosis?: No VTE Prior VTE?: No VTE Risk Level:: Medical - moderate - high VTE Device Contraindication: Treatment Not Indicated VTE Drug Contraindication: N/A - Med Ordered
[2023-12-19 02:01] LABS: Reflex Lactate? Lactic Acid Added
[2023-12-19] MEDS: cefTRIAXone sodium 1 GM VIAL IVPUSH ×2 (02:02→21:30)
[2023-12-19 02:14] LABS: Hematocrit 31.4 % (42.0-52.0); Mean Corpuscular HGB Conc 31.8 g/dl (31.0-36.0); Mean Corpuscular Hemoglobin 26.1 pg (27.0-33.0); Platelet Count 272 X10*3/uL (160-400); Red Blood Count 3.83 X10*6/uL (4.60-5.80); Red Cell Distribution Width 14.5 % (11.0-16.0); WBC ABN SCTR FOR CBC 1
[2023-12-19 02:15] LABS: White Blood Count 17.7 X10*3/uL (4.8-10.8)
[2023-12-19 02:27] LABS: Anion Gap 16 (12-20); Blood Urea Nitrogen 25 mg/dL (9-16); Calcium 8.4 mg/dL (8.4-10.2); Carbon Dioxide 18 mmol/L (22-29); Chloride 110 mmol/L (96-108); Creatinine Clr Calc Pharmacy 24.2; Estimated Glomerular Filt Rate 29; Glucose Random 323 mg/dL (60-115); Potassium 4.9 mmol/L (3.3-5.1); Sodium 139 mmol/L (135-145)
[2023-12-19 02:28] LABS: ~Lactic Acid-LAB USE ONLY 2.1 mmol/L (0.5-2.0)
[2023-12-19 02:55] LABS: Band Neutrophils Percent 11 % (3-5); Lymphocytes Absolute Manual 0.5 X10*3/uL (1.2-4.9); Lymphocytes Percent Manual 3 % (20-40); Monocytes Absolute Manual 0.9 X10*3/uL (0.1-1.2); Monocytes Percent Manual 5 % (2-11); Neutrophils Absolute Manual 16.3 X10*3/uL (2.0-8.3); Neutrophils Percent Manual 81 % (45-73)
[2023-12-19 02:56] LABS: Microcytosis 1+ (5-14) /OIF; Platelet Estimate NORMAL (NORMAL); Platelet Morphology Comment NORMAL; RBC Morphology NOTED; Toxic Vacuolation PRESENT
[2023-12-19 04:13] LABS: Reflex Lactate? 2 Y
[2023-12-19] MEDS: Flu Vacc TS2024-25(6mos up)/PF 0.5 ML SYRINGE IM (05:25)
[2023-12-19 05:48] LABS: ~Lactic Acid-LAB USE ONLY 2.2 mmol/L (0.5-2.0)
[2023-12-19 07:18] LABS: Glucose, Whole Blood 304 mg/dL (60-115)
[2023-12-19 07:44] LABS: Cancel Lactic Acid Canceled
[2023-12-19] MEDS: Enoxaparin Sodium 30 MG/0.3 ML SYRINGE SUBCUT (07:49)
[2023-12-19] MEDS: Insulin Lispro 100 UNIT/ML 3 ML VIAL SUBCUT ×4 (07:49→21:31)
[2023-12-19] MEDS: 0.9 % Sodium Chloride Flush 3 ML SYRINGE IVFLUSH ×3 (07:50→21:31)
--- NOTE | 2023-12-19 11:27 | PHA.MEDREC ---
Addendum entered by Isabel Lindsay RPh 12/19/23 11:46: Reviewed by [facility] Original Note: Pharmacy Consult ? Medication Reconciliation Pharmacy has completed the medication reconciliation. Spoke to patient with grooving machine operator. Patient seemed he was just saying yes to everything and when I asked more about one of his medications and he said yes to a non yes or no question and was confused about some of them. He stated his daughter Arianne works here in our facility and if I gave her a call she might be able to help. I spoke with Arianne and she stated she did not know her dads medications and states they should of brought a med list for her dad, looking in the chart there was no Med Box list or list of medications in general and states her dads spouse Diana should have one but if she is working she would not know. I utilized an grooving machine operator to call Diana and she was working, was not able to confirm any medications over the phone and states a list should be in the chart. I called [facility] and was able to get a med box list. I confirmed the medications and noticed Amlodipine 5mg tab was not on the list and I called to confirm that and the pharmacy states that is still a filled medication and there is no plans for discontinuation on that medication. I also confirmed if the patient was taking Lantus Solostar now or Tresiba still and the pharmacist there confirmed the patient never picked up the Lantus Solostar and they think the patient still has enough Toujeo but in claims it and according to them they picked that u 11/07 for 24 days so that should of been done 12/01.
[2023-12-19 11:36] LABS: Glucose, Whole Blood 314 mg/dL (60-115)
--- NOTE | 2023-12-19 13:57 | PM.EVENT ---
Event Note Date of Service: 12/19/23 Event Note: This patient is seen and examined by hospitalist service this morning seen and exmained again vomiting improved has some dysuria Physical exam and assessment and plan coordinated in h&P note, Agree with the plan in addition: continue iv antibiotics cr seems slightly improving Time Spent With Patient Time: Total time managing care of this patient today ____ minutes.
[2023-12-19] MEDS: Furosemide 20 MG TABLET PO (14:10)
[2023-12-19 16:08] LABS: Glucose, Whole Blood 244 mg/dL (60-115)
[2023-12-19] MEDS: carvediloL 6.25 MG TABLET PO (16:14)
[2023-12-19 20:31] LABS: Glucose, Whole Blood 320 mg/dL (60-115)
[2023-12-19] MEDS: Gabapentin 300 MG CAPSULE PO (21:30)
[2023-12-19] MEDS: Mirtazapine 15 MG TABLET PO (21:30)
[2023-12-19] MEDS: Insulin Glargine,Hum.rec.anlog 100 UNIT/ML 10 ML VIAL 40 UNIT SUBCUT (21:30)
[2023-12-19] MEDS: Docusate Sodium 100 MG CAPSULE PO (21:30)
[2023-12-19] MEDS: amLODIPine Besylate 5 MG TABLET PO (21:30)
[2023-12-20 03:41] VITALS: BP 107/53; PULSE 71; RESP 16; TEMP 36.9; O2SAT 95
[2023-12-20] MEDS: Omeprazole 20 MG CAPSULE.DR PO (05:59)
[2023-12-20 07:00] LABS: Anion Gap 15 (12-20); Blood Urea Nitrogen 27 mg/dL (9-16); Carbon Dioxide 22 mmol/L (22-29); Chloride 106 mmol/L (96-108); Creatinine Clr Calc Pharmacy 24.4; Estimated Glomerular Filt Rate 29; Glucose Random 202 mg/dL (60-115); Potassium 4.1 mmol/L (3.3-5.1); Sodium 139 mmol/L (135-145)
[2023-12-20 07:25] LABS: Glucose, Whole Blood 186 mg/dL (60-115)
[2023-12-20 07:28] VITALS: BP 107/53; PULSE 75; RESP 16; TEMP 37; O2SAT 95
[2023-12-20] MEDS: Insulin Lispro 100 UNIT/ML 3 ML VIAL SUBCUT ×4 (07:55→20:56)
[2023-12-20] MEDS: Multivitamin TABLET 1 TAB PO (07:56)
[2023-12-20] MEDS: Empagliflozin 25 MG TABLET PO (07:56)
[2023-12-20] MEDS: Enoxaparin Sodium 30 MG/0.3 ML SYRINGE SUBCUT (07:56)
[2023-12-20] MEDS: carvediloL 6.25 MG TABLET PO ×2 (07:56→16:41)
[2023-12-20] MEDS: Docusate Sodium 100 MG CAPSULE PO ×2 (07:56→20:55)
[2023-12-20] MEDS: 0.9 % Sodium Chloride Flush 3 ML SYRINGE IVFLUSH ×3 (08:00→21:02)
--- NOTE | 2023-12-20 09:26 | MHC.CM.PN ---
Addendum entered by Bhavna Retana 12/21/23 16:06: CM ATTEMPTED TO MEET WITH PT HOWEVER HE WAS OFF UNIT CM TO RETURN Original Note: PT LIVES WITH HAS [facility]RU [employer] AND A [employer] HE HAS OWN TRANSPORTATION HOME DC PLAN HOME WITH FAMILY AND SERVICES
[2023-12-20 09:28] LABS: Hematocrit 31.8 % (42.0-52.0); Hemoglobin 10.3 g/dl (14.0-18.0); Mean Corpuscular HGB Conc 32.4 g/dl (31.0-36.0); Mean Corpuscular Hemoglobin 26.5 pg (27.0-33.0); Mean Corpuscular Volume 81.7 fL (80.0-98.0); Mean Platelet Volume 9.3 fL (9.4-12.4); Platelet Count 278 X10*3/uL (160-400); Red Blood Count 3.89 X10*6/uL (4.60-5.80); Red Cell Distribution Width 14.9 % (11.0-16.0); White Blood Count 13.1 X10*3/uL (4.8-10.8)
[2023-12-20 11:24] LABS: Glucose, Whole Blood 288 mg/dL (60-115)
[2023-12-20 12:50] LABS: CDiff Gene PCR NEGATIVE (Negative)
--- NOTE | 2023-12-20 13:55 | PM.DS ---
DS: Providers Provider Date of Service: 12/23/23 Date of admission: 12/19/23 01:49 Date of discharge: 12/23/23 Primary care physician: Natacha Olivas MD Attending physician on discharge: Gena Schuler Discharging clinician: Gena Schuler DS: Diagnosis Discharge Diagnosis (1) Pyelonephritis: Status: Acute (2) Acute kidney injury superimposed on chronic kidney disease: Status: Acute DS: Summary Hospital Course Hospital Course: HPI: 78-year-old male with pertinent history of insulin-dependent diabetes mellitus, hypertension, CKD stage 3, mixed hyperlipidemia, history of nephrolithiasis, CVA with left-sided hemiparesis, neuropathy, mood disorder who presents to the emergency department for evaluation of dysuria and vomiting. Patient states his symptoms started 1 day prior to presentation. He has been having dysuria and increased urinary frequency. Also states that had oatmeal 1 day prior to presentation and thinks that it was not good. Patient has had multiple episodes of nonbloody emesis throughout the day. Denies abdominal discomfort. Denies diarrhea. Endorses weakness and easy fatigability. Also admits fevers. No chest pain, cough, palpitation, shortness of breath, changes in bowel habits. In the emergency department, patient was found to be septic and resuscitated with IV crystalloids. He was found to have AMERICO and urine concerning for acute UTI. Hospital course: Patient came to the hospital because of dysuria: Possibly as sepsis secondary to UTI/pyelonephritis: Patient was started on IV antibiotics, blood cultures and urine cultures sent, Patient WBC seems to be improving significantly, no fever and asymptomatic-blood culture negative at 24 hour, patient is currently asymptomatic. Urine culture mixed sunita. With the above management patient seems to be improved. Patient will be going home on Ceftin since patient is improving on ceftriaxone and urine culture seems mixed , blood culture negative at 48 hrs. will go home ceftin 250 mg po bid for 7 days. americo (?possibly related to diuretics/nausea vomiting) seems improving with holding lasix ,also encouraging p.o. intake ,cr seems near baseline , hold lasix next dose and repeat bmp outpatient.Patient was strongly advised to encouraged for hydration and p.o. intake. lasix renogram reviewed by urology-Left side is predominant on split function. There is a partial emptying delay but no obstruction. repeat bmp in 1 week and follow up with pcp outpatient. plan: complete ceftin 250 mg po bid for 7 days. hold lasix next dose and repeat bmp and follow up with pcp outpatient Above management discussed with the patient in detail length he understand and in agreement with the above plan, time spent 40 minute. Time Attestation Total time managing care of this patient today: 40 mintues. Discharge Coordination Time (in mins): 40 min Quality: Safe Use of Opioids Does Pt have an Active Cancer Diagnosis on the Problem List?: No Quality: Stroke Does the patient have a stroke diagnosis?: No Physical Exam Vital Signs: Vital Signs: Last Vital Signs Temp 98.6 F 12/20/23 07:28 Pulse 75 12/20/23 07:28 Resp 16 12/20/23 07:28 BP 107/53 L 12/20/23 07:28 Pulse Ox 95 12/20/23 07:28 O2 Del Method Room Air 12/20/23 07:28 BMI result Body Mass Index 22.5 Middle-aged male lying in bed in no distress Neck supple, no JVD CVS:Regular rate and rhythm, S1-S2 heard Pulm:Regular breath sounds bilaterally, no wheezing or crackles appreciated :left CVA tenderness improved, no rigidity, no guarding neuro: aox3, L hemiparesis No pedal edema DS: Data Data Completed and Pending Labs on day of discharge: Laboratory Results - last 24 hr 12/19/23 12/19/23 12/20/23 16:01 20:27 05:39 WBC RBC Hgb Hct MCV MCH MCHC RDW Plt Count MPV Absolute Nucleated RBC Nucleated RBC % (auto) Sodium 139 Potassium 4.1 Chloride 106 Carbon Dioxide 22 Anion Gap 15 BUN 27 H Creatinine 2.19 H Estim Creat Clear Calc 24.4 Estimated GFR 29 POC Glucose 244 H 320 H Random Glucose 202 H Calcium 9.0 D C. difficile Tox B Gene 12/20/23 12/20/23 12/20/23 07:21 09:22 11:06 WBC 13.1 H RBC 3.89 L Hgb 10.3 L Hct 31.8 L MCV 81.7 MCH 26.5 L MCHC 32.4 RDW 14.9 Plt Count 278 MPV 9.3 L Absolute Nucleated RBC 0.000 Nucleated RBC % (auto) 0.0 Sodium Potassium Chloride Carbon Dioxide Anion Gap BUN Creatinine Estim Creat Clear Calc Estimated GFR POC Glucose 186 H 288 H Random Glucose Calcium C. difficile Tox B Gene 12/20/23 11:10 WBC RBC Hgb Hct MCV MCH MCHC RDW Plt Count MPV Absolute Nucleated RBC Nucleated RBC % (auto) Sodium Potassium Chloride Carbon Dioxide Anion Gap BUN Creatinine Estim Creat Clear Calc Estimated GFR POC Glucose Random Glucose Calcium C. difficile Tox B Gene NEGATIVE Preliminary micro results at discharge 12/18/23 23:40 Blood Culture - Preliminary Blood - Venous No growth after 24 hours. 12/18/23 23:53 Blood Culture - Preliminary Blood - Venous No growth after 24 hours. Imaging Chest x-ray: Radiologist's impression: ITS Impressions Chest X-Ray 12/19/23 00:00 IMPRESSION: *No acute cardiopulmonary abnormalities. *Mild aortic calcific atherosclerosis. Electronically signed by: Norman Crooks MD 12/19/2023 01:39 AM EDT Abdomen/Pelvis CT 12/19/23 01:44 IMPRESSION: 1. Mild left hydronephrosis and mild left ureterectasis. No urolithiasis identified. Mild reticulation of the left perinephric fat is present. Findings are suspicious for a recently passed left-sided calculus. Findings could also be secondary to pyelonephritis. Similar findings were present on the comparison study of 06/14/2023. 2. Cholelithiasis. 3. Mild colonic diverticulosis. No evidence of acute diverticulitis. 4. Normal appendix. Electronically signed by: Norman Crooks MD 12/19/2023 03:56 AM EDT Discharge Plan Discharge Anticipated Discharge Date/Time: 12/20/23 13:38 Patient Disposition: Home, Self-Care Discharge Diagnosis: sepsis sec to pyelonephritis Referrals: Natacha Olivas MD [Primary Care Provider] - 1 Week Discharge Medications: New cefuroxime axetil 250 mg tablet 250 mg PO Q12H Qty: 14 0RF Continued (DME) blood-glucose meter [facility] M[facility] See Rx Instructions .ROUTE .MEDSUPPLY Qty: 1 0RF Rx Instructions: As directed 4x/day (DME) OneTouch Verio test strips Strip See Rx Instructions .ROUTE .MEDSUPPLY Qty: 150 11RF Rx Instructions: 4 x/day (DME) lancets [OneTouch Delica Lancets] 33 gauge misc See Rx Instructions .ROUTE .MEDSUPPLY Qty: 200 10RF Rx Instructions: four times a day insulin lispro 100 unit/mL insulin pen 2 - 10 sliding scale dose subcut TIDAC Protocol: Insulin Correction Scale Less than or equal to 110 ---- Give (units): 0 111 to 150 Give (units): 0 151 to 200 Give (units): 2 201 to 250 Give (units): 4 251 to 300 Give (units): 6 301 to 350 Give (units): 8 Greater than 350 Give (units): 10 Call MD if Blood Glucose > : 350 Rx Instructions: 2-10 units TIDAC per sliding scale amlodipine [Norvasc] 5 mg tablet 5 mg PO BEDTIME gabapentin 300 mg capsule 300 mg PO BEDTIME Jardiance 25 mg tablet 25 mg PO DAILY carvedilol 6.25 mg tablet 6.25 mg PO BIDWM multivitamin Tablet 1 tab PO DAILY sennosides [senna] 8.6 mg tablet 8.6 - 17.2 mg PO BEDTIME PRN (Reason: constipation) docusate sodium 100 mg capsule 100 mg PO BID mirtazapine 15 mg Tablet 15 mg PO BEDTIME polyethylene glycol 3350 [Gavilax] 17 gram/dose powder 17 g PO BEDTIME PRN (Reason: constipation) loratadine 10 mg tablet 10 mg PO Q48H PRN (Reason: allergies) insulin glargine U-300 conc [Toujeo SoloStar U-300 Insulin] 300 unit/mL (1.5 mL) insulin pen 55 unit subcut BEDTIME pantoprazole 40 mg tablet,delayed release (DR/EC) 40 mg PO DAILY@0630 (DME) pen needle, diabetic [Pentips] 32 gauge x 5/32 needle See Rx Instructions .ROUTE .MEDSUPPLY Qty: 50 Rx Instructions: As directed 4 TIMES A DAY Held furosemide 20 mg tablet 20 mg PO Q48H Hold Instructions: Resume on 12/24/23. Discharge Orders: Discharge Order (Routine); Ordered 12/23/23 Ordered By: Gena Schuler Diet: Advance to usual diet Activity on Discharge: As tolerated Stand Alone Forms: Patient Portal Discharge page Print Language: Chadian Other Ambulatory Orders: Basic Metabolic Panel (Routine) Timeframe: 1 Week Facility: [facility] - Location: Laboratory Ordered By: Gena Schuler Care Plan Goals: Patient came to the hospital because of dysuria: Possibly as sepsis secondary to UTI/pyelonephritis: Patient was started on IV antibiotics, blood cultures and urine cultures sent, Patient WBC seems to be improving significantly, no fever and asymptomatic-blood culture negative at 24 hour, patient is currently asymptomatic. Urine culture mixed sunita. With the above management patient seems to be improved. Patient will be going home on Ceftin since patient is improving on ceftriaxone and urine cancer seems contaminant as well as blood culture negative at 24 hrs. will go home ceftin 250 mg po bid for 7 days. americo (?possibly related to diuretics/nausea vomiting) seems improving with holding lasix ,also encouraging p.o. intake ,cr seems near baseline , hold lasix next dose and repeat bmp outpatient.Patient was strongly advised to encouraged for hydration and p.o. intake. lasix renogram reviewed by urology-Left side is predominant on split function. There is a partial emptying delay but no obstruction. repeat bmp in 1 week and follow up with pcp outpatient. Health Concerns: complete ceftin 250 mg po bid for 9 days. hold lasix next dose and repeat bmp and follow up with pcp outpatient Plan of Treatment: as above. Assessment: as above.
[2023-12-20] MEDS: cefuroxime axetiL 250 MG TABLET PO (14:36)
[2023-12-20 14:58] VITALS: BP 117/56; PULSE 71; RESP 18; TEMP 37.1; O2SAT 95
--- NOTE | 2023-12-20 16:02 | P.PNIM_ITS ---
Subjective Subjective Date of Service: 12/21/23 Interval History: Pyelonephritis Review of Systems Improving denies any fever or chills. Physical Exam 2 Vital Signs: Vital Signs: Last Vital Signs Temp 98.7 F 12/20/23 14:58 Pulse 71 12/20/23 14:58 Resp 18 12/20/23 14:58 BP 117/56 L 12/20/23 14:58 Pulse Ox 95 12/20/23 14:58 O2 Del Method Room Air 12/20/23 14:58 BMI result Body Mass Index 22.5 Middle-aged male lying in bed in no distress Neck supple, no JVD CVS:Regular rate and rhythm, S1-S2 heard Pulm:Regular breath sounds bilaterally, no wheezing or crackles appreciated :left CVA tenderness improved, no rigidity, no guarding neuro: aox3, L hemiparesis No pedal edema Objective Data Active Medications Acetaminophen (Acetaminophen 325 Mg Tablet) 650 mg PO Q6H PRN PRN Reason: Pain, Mild (Pain Scale 1-3), fever or headache Amlodipine Besylate (Amlodipine Besylate 5 Mg Tablet) 5 mg PO BEDTIME [facility]; Protocol Last Admin: 12/19/23 21:30 Dose: 5 mg Documented By: REMBERTO Calcium Carbonate (Calcium Carbonate 750 Mg Tab.Chew) 750 mg PO Q4H PRN PRN Reason: Heartburn Carvedilol (Carvedilol 6.25 Mg Tablet) 6.25 mg PO BIDWM [facility]; Protocol Last Admin: 12/20/23 07:56 Dose: 6.25 mg Documented By: ZEKE Ceftriaxone Sodium (Ceftriaxone Sodium 1 Gm Vial) 1 gm IVPUSH 2200 [facility] Last Admin: 12/19/23 21:30 Dose: 1 gm Documented By: REMBERTO Cefuroxime Axetil (Cefuroxime Axetil 250 Mg Tablet) 250 mg PO Q12H [facility] Last Admin: 12/20/23 14:36 Dose: 250 mg Documented By: ZEKE Docusate Sodium (Docusate Sodium 100 Mg Capsule) 100 mg PO BID [facility] Last Admin: 12/20/23 07:56 Dose: 100 mg Documented By: ZEKE Empagliflozin (Empagliflozin 25 Mg Tablet) 25 mg PO DAILY [facility] Last Admin: 12/20/23 07:56 Dose: 25 mg Documented By: ZEKE Enoxaparin Sodium (Enoxaparin Sodium 30 Mg/0.3 Ml Syringe) 30 mg SUBCUT Q24H [facility] Last Admin: 12/20/23 07:56 Dose: 30 mg Documented By: ZEKE Furosemide (Furosemide 20 Mg Tablet) 20 mg PO Q48H [facility]; Protocol Last Admin: 12/19/23 14:10 Dose: 20 mg Documented By: BILL Gabapentin (Gabapentin 300 Mg Capsule) 300 mg PO BEDTIME [facility] Last Admin: 12/19/23 21:30 Dose: 300 mg Documented By: REMBERTO Glucose (Glucose Gel 15 Gm Gel..Gram.) 15 gm PO Q15M PRN; Protocol PRN Reason: per Hypoglycemia Standing Ord. Dextrose (D10) 250 mls @ 750 mls/hr IV Q15M PRN; Protocol PRN Reason: per Hypoglycemia Standing Ord. Insulin Glargine (Insulin Glargine,Hum.Rec.Anlog 100 Unit/Ml 10 Ml Vial) 40 unit SUBCUT BEDTIME [facility] Last Admin: 12/19/23 21:30 Dose: 40 unit Documented By: REMBERTO Insulin Human Lispro (Insulin Lispro 100 Unit/Ml 3 Ml Vial) 0 unit SUBCUT QIDACHS [facility]; Protocol Last Admin: 12/20/23 11:34 Dose: 6 unit Documented By: ZEKE Loratadine (Loratadine 10 Mg Tablet) 10 mg PO Q48H PRN PRN Reason: allergies Magnesium Hydroxide (Milk Of Magnesia 30 Ml Oral.Susp) 30 ml PO DAILY PRN PRN Reason: Constipation Melatonin (Melatonin 3 Mg Tablet) 6 mg PO BEDTIME PRN PRN Reason: Insomnia Mirtazapine (Mirtazapine 15 Mg Tablet) 15 mg PO BEDTIME [facility] Last Admin: 12/19/23 21:30 Dose: 15 mg Documented By: REMBERTO Multivitamins/Vitamin C (Multivitamin Tablet) 1 tab PO DAILY [facility] Last Admin: 12/20/23 07:56 Dose: 1 tab Documented By: ZEKE Omeprazole (Omeprazole 20 Mg Capsule.) 20 mg PO DAILY@0630 [facility] Last Admin: 12/20/23 05:59 Dose: 20 mg Documented By: REMBERTO Ondansetron HCl (Ondansetron Hcl 4 Mg/2 Ml Vial) 4 mg IVPUSH Q8H PRN PRN Reason: Nausea and Vomiting Polyethylene Glycol (Polyethylene Glycol 3350 17 Gm Powd.Pack) 17 gm PO BEDTIME PRN PRN Reason: constipation Senna (Sennosides 8.6 Mg Tablet) 8.6 - 17.2 mg PO BEDTIME PRN PRN Reason: constipation Sodium Chloride (0.9 % Sodium Chloride Flush 3 Ml Syringe) 3 ml IVFLUSH QSHIFT [facility] Last Admin: 12/20/23 08:00 Dose: 3 ml Documented By: ZEKE Labs 12/20/23 09:22 12/21/23 09:35 Labs: Laboratory Results - last 24 hr 12/19/23 12/19/23 12/20/23 16:01 20:27 05:39 MCV MCH MCHC RDW Plt Count MPV Absolute Nucleated RBC Nucleated RBC % (auto) Anion Gap 15 Estim Creat Clear Calc 24.4 Estimated GFR 29 POC Glucose 244 H 320 H Random Glucose 202 H Calcium 9.0 D C. difficile Tox B Gene 12/20/23 12/20/23 12/20/23 07:21 09:22 11:06 MCV 81.7 MCH 26.5 L MCHC 32.4 RDW 14.9 Plt Count 278 MPV 9.3 L Absolute Nucleated RBC 0.000 Nucleated RBC % (auto) 0.0 Anion Gap Estim Creat Clear Calc Estimated GFR POC Glucose 186 H 288 H Random Glucose Calcium C. difficile Tox B Gene 12/20/23 11:10 MCV MCH MCHC RDW Plt Count MPV Absolute Nucleated RBC Nucleated RBC % (auto) Anion Gap Estim Creat Clear Calc Estimated GFR POC Glucose Random Glucose Calcium C. difficile Tox B Gene NEGATIVE Microbiology Microbiology Results: Microbiology 12/19/23 Unknown Urine Culture - Final Urine clean catch - Clean Catch Midstream 12/18/23 23:40 Blood Culture - Preliminary Blood - Venous No growth after 24 hours. 12/18/23 23:53 Blood Culture - Preliminary Blood - Venous No growth after 24 hours. Assessment and Plan (1) Acute UTI: Status: Acute (2) Pyelonephritis: Status: Acute Plan 78-year-old male with pertinent history of insulin-dependent diabetes mellitus, hypertension, CKD stage 3, mixed hyperlipidemia, history of nephrolithiasis, CVA with left-sided hemiparesis, neuropathy, mood disorder who presents to the emergency department for evaluation of dysuria and vomiting. Sepsis due to acute left-sided pyelonephritis with UTI: Will admit patient with empiric IV Rocephin. Resuscitated with IV crystalloids. Lactic acid and blood culture obtained. Urine culture pending Acute lactic acidosis due to sepsis Acute kidney injury on CKD stage 3: Monitor creatinine urine output with crystalloid resuscitation. Avoid nephrotoxins Hypertension: Hold furosemide in the setting of AMERICO Insulin-dependent diabetes mellitus with hyperglycemia: Initiating basal plus insulin regimen Peripheral neuropathy: On gabapentin Mood disorder: On Remeron Med rec pending DVT prophylaxis: Lovenox . Full code ongoing need for hospilisation- inpatient and will require two night minimum hospital stay for IV antibiotics (as above), which is not possible in a lesser acute setting. Quality Stroke Does the patient have a stroke diagnosis?: No VTE Prior VTE?: No VTE Risk Level:: Medical - moderate - high VTE Device Contraindication: Treatment Not Indicated VTE Drug Contraindication: N/A - Med Ordered
[2023-12-20 16:22] LABS: Glucose, Whole Blood 272 mg/dL (60-115)
[2023-12-20 16:41] VITALS: BP 139/65; PULSE 77
[2023-12-20 19:19] VITALS: BP 121/60; PULSE 76; RESP 17; TEMP 36.2; O2SAT 95
[2023-12-20 20:41] LABS: Glucose, Whole Blood 274 mg/dL (60-115)
[2023-12-20] MEDS: Gabapentin 300 MG CAPSULE PO (20:55)
[2023-12-20] MEDS: amLODIPine Besylate 5 MG TABLET PO (20:55)
[2023-12-20] MEDS: Insulin Glargine,Hum.rec.anlog 100 UNIT/ML 10 ML VIAL 40 UNIT SUBCUT (20:56)
[2023-12-20] MEDS: Mirtazapine 15 MG TABLET PO (20:56)
[2023-12-20] MEDS: cefTRIAXone sodium 1 GM VIAL IVPUSH (21:02)
[2023-12-21 03:25] VITALS: BP 123/58; PULSE 63; RESP 17; TEMP 36.2; O2SAT 94
[2023-12-21] MEDS: cefuroxime axetiL 250 MG TABLET PO (03:37)
[2023-12-21] MEDS: Omeprazole 20 MG CAPSULE.DR PO (05:48)
[2023-12-21 07:16] VITALS: BP 120/60; PULSE 70; RESP 16; TEMP 36.1; O2SAT 96
[2023-12-21 07:28] LABS: Glucose, Whole Blood 134 mg/dL (60-115)
[2023-12-21] MEDS: 0.9 % Sodium Chloride Flush 3 ML SYRINGE IVFLUSH ×3 (08:04→21:23)
[2023-12-21] MEDS: Multivitamin TABLET 1 TAB PO (08:04)
[2023-12-21] MEDS: Docusate Sodium 100 MG CAPSULE PO ×2 (08:04→21:23)
[2023-12-21] MEDS: carvediloL 6.25 MG TABLET PO ×2 (08:04→17:09)
[2023-12-21] MEDS: Empagliflozin 25 MG TABLET PO (08:04)
[2023-12-21] MEDS: Enoxaparin Sodium 30 MG/0.3 ML SYRINGE SUBCUT (08:04)
[2023-12-21 09:55] LABS: Anion Gap 16 (12-20); Blood Urea Nitrogen 28 mg/dL (9-16); Calcium 9.6 mg/dL (8.4-10.2); Carbon Dioxide 22 mmol/L (22-29); Chloride 104 mmol/L (96-108); Creatinine Clr Calc Pharmacy 25.1; Estimated Glomerular Filt Rate 30; Glucose Random 226 mg/dL (60-115); Potassium 4.4 mmol/L (3.3-5.1); Sodium 138 mmol/L (135-145)
[2023-12-21 11:35] LABS: Glucose, Whole Blood 309 mg/dL (60-115)
[2023-12-21] MEDS: Insulin Lispro 100 UNIT/ML 3 ML VIAL SUBCUT ×3 (11:58→21:22)
--- NOTE | 2023-12-21 12:49 | HO.PM.IMPN ---
Subjective Subjective Date of Service: 12/22/23 Interval History: uti/hydronephrosis Review of Systems no new c/o dysuria improving Physical Exam Vital Signs: Vital Signs: Last Vital Signs Temp 97.0 F 12/21/23 07:16 Pulse 70 12/21/23 07:16 Resp 16 12/21/23 07:16 BP 120/60 12/21/23 07:16 Pulse Ox 96 12/21/23 07:16 O2 Del Method Room Air 12/21/23 07:16 BMI result Body Mass Index 22.5 Middle-aged male lying in bed in no distress Neck supple, no JVD CVS:Regular rate and rhythm, S1-S2 heard Pulm:Regular breath sounds bilaterally, no wheezing or crackles appreciated :left CVA tenderness improved, no rigidity, no guarding neuro: aox3, L hemiparesis No pedal rachana Objective Data Active Medications Acetaminophen (Acetaminophen 325 Mg Tablet) 650 mg PO Q6H PRN PRN Reason: Pain, Mild (Pain Scale 1-3), fever or headache Amlodipine Besylate (Amlodipine Besylate 5 Mg Tablet) 5 mg PO BEDTIME [facility]; Protocol Last Admin: 12/20/23 20:55 Dose: 5 mg Documented By: CHET Calcium Carbonate (Calcium Carbonate 750 Mg Tab.Chew) 750 mg PO Q4H PRN PRN Reason: Heartburn Carvedilol (Carvedilol 6.25 Mg Tablet) 6.25 mg PO BIDWM [facility]; Protocol Last Admin: 12/21/23 08:04 Dose: 6.25 mg Documented By: ZEKE Ceftriaxone Sodium (Ceftriaxone Sodium 1 Gm Vial) 1 gm IVPUSH 2200 [facility] Last Admin: 12/20/23 21:02 Dose: 1 gm Documented By: CHET Cefuroxime Axetil (Cefuroxime Axetil 250 Mg Tablet) 250 mg PO Q12H [facility] Last Admin: 12/21/23 03:37 Dose: 250 mg Documented By: CHET Docusate Sodium (Docusate Sodium 100 Mg Capsule) 100 mg PO BID [facility] Last Admin: 12/21/23 08:04 Dose: 100 mg Documented By: ZEKE Empagliflozin (Empagliflozin 25 Mg Tablet) 25 mg PO DAILY [facility] Last Admin: 12/21/23 08:04 Dose: 25 mg Documented By: ZEKE Enoxaparin Sodium (Enoxaparin Sodium 30 Mg/0.3 Ml Syringe) 30 mg SUBCUT Q24H [facility] Last Admin: 12/21/23 08:04 Dose: 30 mg Documented By: ZEKE Furosemide (Furosemide 20 Mg Tablet) 20 mg PO Q48H [facility]; Protocol Last Admin: 12/19/23 14:10 Dose: 20 mg Documented By: BILL Gabapentin (Gabapentin 300 Mg Capsule) 300 mg PO BEDTIME [facility] Last Admin: 12/20/23 20:55 Dose: 300 mg Documented By: CHET Glucose (Glucose Gel 15 Gm Gel..Gram.) 15 gm PO Q15M PRN; Protocol PRN Reason: per Hypoglycemia Standing Ord. Dextrose (D10) 250 mls @ 750 mls/hr IV Q15M PRN; Protocol PRN Reason: per Hypoglycemia Standing Ord. Insulin Glargine (Insulin Glargine,Hum.Rec.Anlog 100 Unit/Ml 10 Ml Vial) 40 unit SUBCUT BEDTIME [facility] Last Admin: 12/20/23 20:56 Dose: 40 unit Documented By: CHET Insulin Human Lispro (Insulin Lispro 100 Unit/Ml 3 Ml Vial) 0 unit SUBCUT QIDACHS [facility]; Protocol Last Admin: 12/21/23 11:58 Dose: 8 unit Documented By: ZEKE Loratadine (Loratadine 10 Mg Tablet) 10 mg PO Q48H PRN PRN Reason: allergies Magnesium Hydroxide (Milk Of Magnesia 30 Ml Oral.Susp) 30 ml PO DAILY PRN PRN Reason: Constipation Melatonin (Melatonin 3 Mg Tablet) 6 mg PO BEDTIME PRN PRN Reason: Insomnia Mirtazapine (Mirtazapine 15 Mg Tablet) 15 mg PO BEDTIME [facility] Last Admin: 12/20/23 20:56 Dose: 15 mg Documented By: CHET Multivitamins/Vitamin C (Multivitamin Tablet) 1 tab PO DAILY [facility] Last Admin: 12/21/23 08:04 Dose: 1 tab Documented By: ZEKE Omeprazole (Omeprazole 20 Mg Capsule.) 20 mg PO DAILY@0630 [facility] Last Admin: 12/21/23 05:48 Dose: 20 mg Documented By: CHET Ondansetron HCl (Ondansetron Hcl 4 Mg/2 Ml Vial) 4 mg IVPUSH Q8H PRN PRN Reason: Nausea and Vomiting Polyethylene Glycol (Polyethylene Glycol 3350 17 Gm Powd.Pack) 17 gm PO BEDTIME PRN PRN Reason: constipation Senna (Sennosides 8.6 Mg Tablet) 8.6 - 17.2 mg PO BEDTIME PRN PRN Reason: constipation Sodium Chloride (0.9 % Sodium Chloride Flush 3 Ml Syringe) 3 ml IVFLUSH QSHIFT [facility] Last Admin: 12/21/23 08:04 Dose: 3 ml Documented By: ZEKE Labs 12/20/23 09:22 12/21/23 09:35 Labs: Laboratory Results - last 24 hr 12/20/23 12/20/23 12/20/23 11:10 16:06 20:27 Anion Gap Estim Creat Clear Calc Estimated GFR POC Glucose 272 H 274 H Random Glucose Calcium C. difficile Tox B Gene NEGATIVE 12/21/23 12/21/23 12/21/23 07:01 09:35 11:23 Anion Gap 16 Estim Creat Clear Calc 25.1 Estimated GFR 30 POC Glucose 134 H 309 H Random Glucose 226 H Calcium 9.6 D C. difficile Tox B Gene Microbiology Microbiology Results: Microbiology 12/18/23 23:40 Blood Culture - Preliminary Blood - Venous No growth after 48 hours. 12/18/23 23:53 Blood Culture - Preliminary Blood - Venous No growth after 48 hours. 12/19/23 Unknown Urine Culture - Final Urine clean catch - Clean Catch Midstream Assessment and Plan (1) Acute UTI: Status: Acute (2) Pyelonephritis: Status: Acute Plan 78-year-old male with pertinent history of insulin-dependent diabetes mellitus, hypertension, CKD stage 3, mixed hyperlipidemia, history of nephrolithiasis, CVA with left-sided hemiparesis, neuropathy, mood disorder who presents to the emergency department for evaluation of dysuria and vomiting. Sepsis due to acute left-sided pyelonephritis with UTI: blood culture neg @48hrs . Urine culture -mixed. Acute lactic acidosis trending down continue with empiric IV Rocephin. Resuscitated with IV crystalloids. urology follwup Acute kidney injury on CKD stage 3: cr seems similar lasix renogram added Hypertension: Hold furosemide in the setting of [facility] Insulin-dependent diabetes mellitus with hyperglycemia: Initiating basal plus insulin regimen Peripheral neuropathy: On gabapentin Mood disorder: On Remeron DVT prophylaxis: Lovenox . Full code ongoing need for hospilisation- inpatient and will require two night minimum hospital stay for IV antibiotics (as above), which is not possible in a lesser acute setting Quality Stroke Does the patient have a stroke diagnosis?: No VTE Prior VTE?: No VTE Risk Level:: Medical - moderate - high VTE Device Contraindication: Treatment Not Indicated VTE Drug Contraindication: N/A - Med Ordered
--- NOTE | 2023-12-21 15:03 | PM.UROCN ---
History of Present Illness Consult details Consult date: 12/21/23 Narrative: CC left hydronephrosis - urinary tract infection 78-year-old male [place]-speaking Background insulin-dependent diabetes, hypertension, CKD stage 3, mood disorder, neuropathy Presented with combination dysuria and vomiting symptoms present 24 hours Also indicated dysuria and increased urinary frequency On evaluation found to have acute urinary tract infection UA positive glucose positive blood positive leukocytes negative nitrites Urine culture negative Imaging Mild left hydronephrosis and mild left ureterectasis is present similar findings present for 09/07/2023. Recommend initiation combination therapy alpha-[place] with 5 AR for bladder emptying Lasix renogram Review of Systems Constitutional: Constitutional: Denies chills and Denies fever(s) Cardiovascular: Cardiovascular: Reports no additional cardiovascular complaints and Denies syncope Respiratory: Respiratory: Denies cough Gastrointestinal: Gastrointestinal: Denies abdominal pain and Denies heartburn Genitourinary: Genitourinary: Reports as per HPI and Denies change in libido Neurologic: Denies syncope Psychiatric: Psychiatric: Denies change in libido Endocrine: Endocrine: Denies change in libido [facility] Past Medical History Medical History NSTEMI (non-ST elevated myocardial infarction) Sepsis Pneumonia Type 2 diabetes mellitus with diabetic polyneuropathy Diverticulosis Erectile dysfunction BPH (benign prostatic hyperplasia) Carpal tunnel syndrome Cataracts, bilateral GERD (gastroesophageal reflux disease) Kidney stones Type 2 diabetes mellitus with chronic kidney disease Chronic kidney disease, stage 3 Type 2 diabetes mellitus with hyperglycemia Essential hypertension Hyperlipidemia LDL goal <70 Family History Family History Father No problems noted. 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) Alcohol intake: never Patient Tobacco Use Status: Never used Tobacco Advance Directives Date on File: 04/11/23 service: No Current occupational status: retired Meds Allergies Allergy/AdvReac Type Severity Reaction Status Date / Time No Known Allergies Allergy Mild N/A Verified 12/18/23 21:38 Active Medications: Current Medications Acetaminophen (Acetaminophen 325 Mg Tablet) 650 mg PO Q6H PRN PRN Reason: Pain, Mild (Pain Scale 1-3), fever or headache Amlodipine Besylate (Amlodipine Besylate 5 Mg Tablet) 5 mg PO BEDTIME [facility]; Protocol Last Admin: 12/20/23 20:55 Dose: 5 mg Calcium Carbonate (Calcium Carbonate 750 Mg Tab.Chew) 750 mg PO Q4H PRN PRN Reason: Heartburn Carvedilol (Carvedilol 6.25 Mg Tablet) 6.25 mg PO BIDWM [facility]; Protocol Last Admin: 12/21/23 08:04 Dose: 6.25 mg Ceftriaxone Sodium (Ceftriaxone Sodium 1 Gm Vial) 1 gm IVPUSH 2200 [facility] Last Admin: 12/20/23 21:02 Dose: 1 gm Docusate Sodium (Docusate Sodium 100 Mg Capsule) 100 mg PO BID [facility] Last Admin: 12/21/23 08:04 Dose: 100 mg Empagliflozin (Empagliflozin 25 Mg Tablet) 25 mg PO DAILY [facility] Last Admin: 12/21/23 08:04 Dose: 25 mg Enoxaparin Sodium (Enoxaparin Sodium 30 Mg/0.3 Ml Syringe) 30 mg SUBCUT Q24H [facility] Last Admin: 12/21/23 08:04 Dose: 30 mg Furosemide (Furosemide 20 Mg Tablet) 20 mg PO Q48H [facility]; Protocol Last Admin: 12/21/23 13:14 Dose: Not Given Gabapentin (Gabapentin 300 Mg Capsule) 300 mg PO BEDTIME [facility] Last Admin: 12/20/23 20:55 Dose: 300 mg Glucose (Glucose Gel 15 Gm Gel..Gram.) 15 gm PO Q15M PRN; Protocol PRN Reason: per Hypoglycemia Standing Ord. Dextrose (D10) 250 mls @ 750 mls/hr IV Q15M PRN; Protocol PRN Reason: per Hypoglycemia Standing Ord. Insulin Glargine (Insulin Glargine,Hum.Rec.Anlog 100 Unit/Ml 10 Ml Vial) 40 unit SUBCUT BEDTIME [facility] Last Admin: 12/20/23 20:56 Dose: 40 unit Insulin Human Lispro (Insulin Lispro 100 Unit/Ml 3 Ml Vial) 0 unit SUBCUT QIDACHS [facility]; Protocol Last Admin: 12/21/23 11:58 Dose: 8 unit Loratadine (Loratadine 10 Mg Tablet) 10 mg PO Q48H PRN PRN Reason: allergies Magnesium Hydroxide (Milk Of Magnesia 30 Ml Oral.Susp) 30 ml PO DAILY PRN PRN Reason: Constipation Melatonin (Melatonin 3 Mg Tablet) 6 mg PO BEDTIME PRN PRN Reason: Insomnia Mirtazapine (Mirtazapine 15 Mg Tablet) 15 mg PO BEDTIME [facility] Last Admin: 12/20/23 20:56 Dose: 15 mg Multivitamins/Vitamin C (Multivitamin Tablet) 1 tab PO DAILY [facility] Last Admin: 12/21/23 08:04 Dose: 1 tab Omeprazole (Omeprazole 20 Mg Capsule.Dr) 20 mg PO DAILY@0630 [facility] Last Admin: 12/21/23 05:48 Dose: 20 mg Ondansetron HCl (Ondansetron Hcl 4 Mg/2 Ml Vial) 4 mg IVPUSH Q8H PRN PRN Reason: Nausea and Vomiting Polyethylene Glycol (Polyethylene Glycol 3350 17 Gm Powd.Pack) 17 gm PO BEDTIME PRN PRN Reason: constipation Senna (Sennosides 8.6 Mg Tablet) 8.6 - 17.2 mg PO BEDTIME PRN PRN Reason: constipation Sodium Chloride (0.9 % Sodium Chloride Flush 3 Ml Syringe) 3 ml IVFLUSH QSHIFT [facility] Last Admin: 12/21/23 08:04 Dose: 3 ml Home Medications ?Medication ?Instructions ?Recorded ?Confirmed ?Last Taken ?Type furosemide 20 mg tablet 20 mg PO Q48H 03/29/22 12/19/23 Unknown History pen needle, diabetic 32 gauge x #50 ea 03/29/22 11/08/22 Unknown History ([place]) amlodipine 5 mg tablet (Norvasc) 5 mg PO BEDTIME 04/10/23 12/19/23 Unknown History gabapentin 300 mg capsule 300 mg PO BEDTIME 04/10/23 12/19/23 Unknown History empagliflozin 25 mg tablet 25 mg PO DAILY 04/11/23 12/19/23 Unknown History (Jardiance) insulin lispro 100 unit/mL 2 - 10 sliding scale dose subcut 06/14/23 12/19/23 3 Weeks Ago History subcutaneous pen TIDAC ~05/23/23 15 unit carvedilol 6.25 mg tablet 6.25 mg PO BIDWM 12/19/23 12/19/23 Unknown History docusate sodium 100 mg capsule 100 mg PO BID 12/19/23 12/19/23 Unknown History insulin glargine U-300 conc 300 55 unit subcut BEDTIME 12/19/23 12/19/23 Unknown History unit/mL (1.5 mL) subcutaneous pen ([employer] SoloStar U-300 Insulin) loratadine 10 mg tablet 10 mg PO Q48H PRN allergies 12/19/23 12/19/23 Unknown History mirtazapine 15 mg tablet 15 mg PO BEDTIME 12/19/23 12/19/23 Unknown History multivitamin 1 tab PO DAILY 12/19/23 12/19/23 Unknown History pantoprazole 40 mg tablet,delayed 40 mg PO DAILY@0630 12/19/23 12/19/23 Unknown History release polyethylene glycol 3350 17 17 g PO BEDTIME PRN constipation 12/19/23 12/19/23 Unknown History gram/dose oral powder (Gavilax) sennosides 8.6 mg tablet (senna) 8.6 - 17.2 mg PO BEDTIME PRN 12/19/23 12/19/23 Unknown History constipation Physical Exam Vital Signs: Vital Signs: Last Vital Signs Temp 97.0 F 12/21/23 07:16 Pulse 70 12/21/23 07:16 Resp 16 12/21/23 07:16 BP 120/60 12/21/23 07:16 Pulse Ox 96 12/21/23 07:16 O2 Del Method Room Air 12/21/23 07:16 BMI result Body Mass Index 22.5 Const: General: cooperative, healthy appearing, comfortable and no acute distress Orientation/consciousness: patient oriented x3 HEENT: Face and sinus: Yes normal facial exam Mouth: moist mucous membranes Neck: Neck: Yes normal visual inspection, Yes full ROM and Yes trachea midline Chest: Chest palpation & inspection: normal inspection of the chest Resp: Effort & Inspection: normal respiratory effort, able to speak in complete sentences and no respiratory distress GI: Inspection: Yes normal to inspection Back/Spine/Pelvis: Cervical Spine: normal cervical lordosis Thoracic/Lumbar Spine: thoracic and lumbar spine normal to inspection Skin: General skin exam: no rashes or lesions noted Neuro: General: patient oriented x3, gait normal, tone normal and moves all extremities Extrem: General: Yes normal to inspection and Yes capillary refill normal Results Labs 12/20/23 09:22 12/21/23 09:35 Labs: Abnormal lab results 12/20/23 12/20/23 12/21/23 Range/Units 16:06 20:27 07:01 BUN (9-16) mg/dL Creatinine (0.5-1.4) mg/dL POC Glucose 272 H 274 H 134 H (60-115) mg/dL Random Glucose (60-115) mg/dL 12/21/23 12/21/23 Range/Units 09:35 11:23 BUN 28 H (9-16) mg/dL Creatinine 2.13 H (0.5-1.4) mg/dL POC Glucose 309 H (60-115) mg/dL Random Glucose 226 H (60-115) mg/dL BMP 12/21/23 09:35 Sodium 138 Potassium 4.4 Chloride 104 Carbon Dioxide 22 BUN 28 H Creatinine 2.13 H Calcium 9.6 D Urine 12/19/23 Range/Units 00:17 Urine Color Yellow Urine Appearance Turbid Urine pH 6.0 (5.0-9.0) Ur Specific [place] 1.015 (1.005-1.025) Urine Protein 100 (2+) H (Neg-Trace) mg/dL Urine Glucose (UA) >=1000 H (Negative) mg/dL All other labs normal. Assessment and Plan (1) Acute kidney injury superimposed on chronic kidney disease: Status: Acute (2) Pyelonephritis: Status: Acute (3) Hydronephrosis: Status: Acute Plan Imaging Prostate medication optimization with outpatient follow-up Procedures Date of Service Date of Service: 12/21/23
[2023-12-21 15:30] LABS: Adenovirus F 40/41 Not Detected (Not Detect.); Astrovirus Not Detected (Not Detect.); Campylobacter Not Detected (Not Detect.); Cryptosporidium Not Detected (Not Detect.); Cyclospora cayetanensis Not Detected (Not Detect.); E. coli EAEC Not Detected (Not Detect.); E. coli EPEC Not Detected (Not Detect.); E. coli ETEC Not Detected (Not Detect.); E. coli STEC Not Detected (Not Detect.); Entamoeba histolytica Not Detected (Not Detect.); Giardia lamblia Not Detected (Not Detect.); Norovirus GI/GII Not Detected (Not Detect.); Plesiomonas shigelloides Not Detected (Not Detect.); Rotavirus A Not Detected (Not Detect.); Salmonella Not Detected (Not Detect.); Sapovirus Not Detected (Not Detect.); Shigella sp./EIEC Not Detected (Not Detect.); Vibrio Not Detected (Not Detect.); Vibrio Cholerae Not Detected (Not Detect.); Yersinia enterocolitica Not Detected (Not Detect.)
[2023-12-21 16:00] VITALS: BP 133/62; PULSE 71; RESP 18; TEMP 36.2; O2SAT 97
[2023-12-21 16:32] LABS: Glucose, Whole Blood 203 mg/dL (60-115)
[2023-12-21 17:09] VITALS: BP 133/63; PULSE 69
[2023-12-21] MEDS: Finasteride 5 MG TABLET PO (17:10)
[2023-12-21 19:19] VITALS: BP 120/60; PULSE 68; RESP 16; TEMP 36.8; O2SAT 97
[2023-12-21 20:38] LABS: Glucose, Whole Blood 172 mg/dL (60-115)
[2023-12-21] MEDS: cefTRIAXone sodium 1 GM VIAL IVPUSH (21:22)
[2023-12-21] MEDS: Gabapentin 300 MG CAPSULE PO (21:23)
[2023-12-21] MEDS: Insulin Glargine,Hum.rec.anlog 100 UNIT/ML 10 ML VIAL 40 UNIT SUBCUT (21:23)
[2023-12-21] MEDS: Tamsulosin HCL 0.4 MG CAPSULE PO (21:23)
[2023-12-21] MEDS: Mirtazapine 15 MG TABLET PO (21:23)
[2023-12-21] MEDS: amLODIPine Besylate 5 MG TABLET PO (21:23)
[2023-12-22 03:07] VITALS: BP 132/66; PULSE 65; RESP 16; TEMP 36.1; O2SAT 98
[2023-12-22] MEDS: Omeprazole 20 MG CAPSULE.DR PO (06:08)
[2023-12-22 07:22] LABS: Glucose, Whole Blood 207 mg/dL (60-115)
[2023-12-22 07:37] VITALS: BP 117/76; PULSE 65; RESP 16; TEMP 36.4; O2SAT 95
[2023-12-22] MEDS: Insulin Lispro 100 UNIT/ML 3 ML VIAL SUBCUT ×4 (07:40→21:58)
[2023-12-22] MEDS: Multivitamin TABLET 1 TAB PO (07:41)
[2023-12-22] MEDS: carvediloL 6.25 MG TABLET PO ×2 (07:41→17:17)
[2023-12-22] MEDS: Docusate Sodium 100 MG CAPSULE PO ×2 (07:41→21:58)
[2023-12-22] MEDS: Empagliflozin 25 MG TABLET PO (07:41)
[2023-12-22] MEDS: Finasteride 5 MG TABLET PO (07:42)
[2023-12-22] MEDS: 0.9 % Sodium Chloride Flush 3 ML SYRINGE IVFLUSH ×3 (07:42→21:59)
[2023-12-22] MEDS: Enoxaparin Sodium 30 MG/0.3 ML SYRINGE SUBCUT (07:42)
[2023-12-22 11:38] LABS: Glucose, Whole Blood 249 mg/dL (60-115)
--- NOTE | 2023-12-22 12:10 | HO.PM.IMPN ---
Subjective Subjective Date of Service: 12/22/23 Interval History: uti Review of Systems cr seems similar no new c/o or fevers Physical Exam Vital Signs: Vital Signs: Last Vital Signs Temp 97.6 F 12/22/23 07:37 Pulse 65 12/22/23 07:37 Resp 16 12/22/23 07:37 BP 117/76 12/22/23 07:37 Pulse Ox 95 12/22/23 07:37 O2 Del Method Room Air 12/22/23 07:37 BMI result Body Mass Index 22.5 Middle-aged male lying in bed in no distress Neck supple, no JVD CVS:Regular rate and rhythm, S1-S2 heard Pulm:Regular breath sounds bilaterally, no wheezing or crackles appreciated :left CVA tenderness improved, no rigidity, no guarding neuro: aox3, L hemiparesis No pedal edema Objective Data Active Medications Acetaminophen (Acetaminophen 325 Mg Tablet) 650 mg PO Q6H PRN PRN Reason: Pain, Mild (Pain Scale 1-3), fever or headache Amlodipine Besylate (Amlodipine Besylate 5 Mg Tablet) 5 mg PO BEDTIME [facility]; Protocol Last Admin: 12/21/23 21:23 Dose: 5 mg Documented By: CHET Calcium Carbonate (Calcium Carbonate 750 Mg Tab.Chew) 750 mg PO Q4H PRN PRN Reason: Heartburn Carvedilol (Carvedilol 6.25 Mg Tablet) 6.25 mg PO BIDWM [facility]; Protocol Last Admin: 12/22/23 07:41 Dose: 6.25 mg Documented By: STEFANO Ceftriaxone Sodium (Ceftriaxone Sodium 1 Gm Vial) 1 gm IVPUSH 2200 [facility] Last Admin: 12/21/23 21:22 Dose: 1 gm Documented By: CHET Docusate Sodium (Docusate Sodium 100 Mg Capsule) 100 mg PO BID [facility] Last Admin: 12/22/23 07:41 Dose: 100 mg Documented By: STEFANO Empagliflozin (Empagliflozin 25 Mg Tablet) 25 mg PO DAILY [facility] Last Admin: 12/22/23 07:41 Dose: 25 mg Documented By: STEFANO Enoxaparin Sodium (Enoxaparin Sodium 30 Mg/0.3 Ml Syringe) 30 mg SUBCUT Q24H [facility] Last Admin: 12/22/23 07:42 Dose: 30 mg Documented By: STEFANO Finasteride (Finasteride 5 Mg Tablet) 5 mg PO DAILY [facility] Last Admin: 12/22/23 07:42 Dose: 5 mg Documented By: STEFANO Furosemide (Furosemide 20 Mg Tablet) 20 mg PO Q48H [facility]; Protocol Last Admin: 12/21/23 13:14 Dose: Not Given Documented By: ZEKE Non-Admin Reason: Physician Held Med Gabapentin (Gabapentin 300 Mg Capsule) 300 mg PO BEDTIME [facility] Last Admin: 12/21/23 21:23 Dose: 300 mg Documented By: CHET Glucose (Glucose Gel 15 Gm Gel..Gram.) 15 gm PO Q15M PRN; Protocol PRN Reason: per Hypoglycemia Standing Ord. Dextrose (D10) 250 mls @ 750 mls/hr IV Q15M PRN; Protocol PRN Reason: per Hypoglycemia Standing Ord. Insulin Glargine (Insulin Glargine,Hum.Rec.Anlog 100 Unit/Ml 10 Ml Vial) 40 unit SUBCUT BEDTIME [facility] Last Admin: 12/21/23 21:23 Dose: 40 unit Documented By: CHET Insulin Human Lispro (Insulin Lispro 100 Unit/Ml 3 Ml Vial) 0 unit SUBCUT QIDACHS [facility]; Protocol Last Admin: 12/22/23 11:58 Dose: 4 unit Documented By: STEFANO Loratadine (Loratadine 10 Mg Tablet) 10 mg PO Q48H PRN PRN Reason: allergies Magnesium Hydroxide (Milk Of Magnesia 30 Ml Oral.Susp) 30 ml PO DAILY PRN PRN Reason: Constipation Melatonin (Melatonin 3 Mg Tablet) 6 mg PO BEDTIME PRN PRN Reason: Insomnia Mirtazapine (Mirtazapine 15 Mg Tablet) 15 mg PO BEDTIME [facility] Last Admin: 12/21/23 21:23 Dose: 15 mg Documented By: CHET Multivitamins/Vitamin C (Multivitamin Tablet) 1 tab PO DAILY [facility] Last Admin: 12/22/23 07:41 Dose: 1 tab Documented By: STEFANO Omeprazole (Omeprazole 20 Mg Capsule.) 20 mg PO DAILY@0630 [facility] Last Admin: 12/22/23 06:08 Dose: 20 mg Documented By: CHET Ondansetron HCl (Ondansetron Hcl 4 Mg/2 Ml Vial) 4 mg IVPUSH Q8H PRN PRN Reason: Nausea and Vomiting Polyethylene Glycol (Polyethylene Glycol 3350 17 Gm Powd.Pack) 17 gm PO BEDTIME PRN PRN Reason: constipation Senna (Sennosides 8.6 Mg Tablet) 8.6 - 17.2 mg PO BEDTIME PRN PRN Reason: constipation Sodium Chloride (0.9 % Sodium Chloride Flush 3 Ml Syringe) 3 ml IVFLUSH QSHIFT [facility] Last Admin: 12/22/23 07:42 Dose: 3 ml Documented By: STEFANO Tamsulosin HCl (Tamsulosin Hcl 0.4 Mg Capsule) 0.4 mg PO BEDTIME [facility] Last Admin: 12/21/23 21:23 Dose: 0.4 mg Documented By: CHET Labs 12/20/23 09:22 12/21/23 09:35 Labs: Laboratory Results - last 24 hr 12/20/23 12/21/23 12/21/23 11:10 16:25 20:12 POC Glucose 203 H 172 H Stl C. cayetanensis PCR Not Detected Stool Rotavirus A PCR Not Detected Stl Adenov F 40/ PCR Not Detected Stool Astrovirus (PCR) Not Detected Stool Campylobacter PCR Not Detected Stool Cryptosporidium PCR Not Detected Stl Sh Tox Pr E STEC PCR Not Detected Stool E coli O157 PCR Not applicable Stl Enterotoxigenic E PCR Not Detected Stool EPEC (PCR) Not Detected Stool EAEC (PCR) Not Detected Stl E. histolytica PCR Not Detected Stool Giardia Lamblia PCR Not Detected Stl P. shigelloides PCR Not Detected Stool Salmonella PCR Not Detected Stool Sapovirus (PCR) Not Detected Stl Shigella/EIEC PCR Not Detected St Y.enterocolitica PCR Not Detected Stool Vibrio (PCR) Not Detected Stl Vibrio cholerae PCR Not Detected Stl Norovirus GI/GII PCR Not Detected 12/22/23 12/22/23 07:13 11:32 POC Glucose 207 H 249 H Stl C. cayetanensis PCR Stool Rotavirus A PCR Stl Adenov F 40/41 PCR Stool Astrovirus (PCR) Stool Campylobacter PCR Stool Cryptosporidium PCR Stl Sh Tox Pr E STEC PCR Stool E coli O157 PCR Stl Enterotoxigenic E PCR Stool EPEC (PCR) Stool EAEC (PCR) Stl E. histolytica PCR Stool Giardia Lamblia PCR Stl P. shigelloides PCR Stool Salmonella PCR Stool Sapovirus (PCR) Stl Shigella/EIEC PCR St Y.enterocolitica PCR Stool Vibrio (PCR) Stl Vibrio cholerae PCR Stl Norovirus GI/GII PCR Assessment and Plan (1) Acute UTI: Status: Acute (2) Pyelonephritis: Status: Acute Plan 78-year-old male with pertinent history of insulin-dependent diabetes mellitus, hypertension, CKD stage 3, mixed hyperlipidemia, history of nephrolithiasis, CVA with left-sided hemiparesis, neuropathy, mood disorder who presents to the emergency department for evaluation of dysuria and vomiting. Sepsis due to acute left-sided pyelonephritis with UTI: blood culture neg @48hrs . Urine culture -mixed. Acute lactic acidosis trending down continue with empiric IV Rocephin. Resuscitated with IV crystalloids. lasixurogram-[facility] urology follwup- will need stent on sunday Acute kidney injury on CKD stage 3: cr seems similar lasix renogram added Hypertension: Hold furosemide in the setting of [facility] Insulin-dependent diabetes mellitus with hyperglycemia: Initiating basal plus insulin regimen Peripheral neuropathy: On gabapentin Mood disorder: On Remeron DVT prophylaxis: Lovenox . Full code ongoing need for hospilisation- inpatient and will require two night minimum hospital stay for IV antibiotics (as above), will need stent on sunday. Quality Stroke Does the patient have a stroke diagnosis?: No VTE Prior VTE?: No VTE Risk Level:: Medical - moderate - high VTE Device Contraindication: Treatment Not Indicated VTE Drug Contraindication: N/A - Med Ordered
[2023-12-22] MEDS: Acetaminophen 325 MG TABLET 650 MG PO (13:22)
[2023-12-22 15:44] VITALS: BP 112/58; PULSE 62; RESP 16; TEMP 36; O2SAT 98
[2023-12-22 16:22] LABS: Glucose, Whole Blood 281 mg/dL (60-115)
[2023-12-22 19:54] VITALS: BP 116/56; PULSE 64; RESP 16; TEMP 36.5; O2SAT 97
[2023-12-22 20:38] LABS: Glucose, Whole Blood 233 mg/dL (60-115)
[2023-12-22] MEDS: cefTRIAXone sodium 1 GM VIAL IVPUSH (21:56)
[2023-12-22] MEDS: Insulin Glargine,Hum.rec.anlog 100 UNIT/ML 10 ML VIAL 40 UNIT SUBCUT (21:58)
[2023-12-22] MEDS: Tamsulosin HCL 0.4 MG CAPSULE PO (21:58)
[2023-12-22] MEDS: Gabapentin 300 MG CAPSULE PO (21:59)
[2023-12-22] MEDS: Mirtazapine 15 MG TABLET PO (21:59)
[2023-12-22] MEDS: amLODIPine Besylate 5 MG TABLET PO (21:59)
[2023-12-23] MEDS: Omeprazole 20 MG CAPSULE.DR PO (06:23)
[2023-12-23 07:18] VITALS: BP 108/60; PULSE 67; RESP 16; TEMP 36.6; O2SAT 97
[2023-12-23 07:20] LABS: Glucose, Whole Blood 71 mg/dL (60-115)
[2023-12-23 09:15] VITALS: BP 125/71
[2023-12-23 09:21] LABS: Glucose, Whole Blood 151 mg/dL (60-115)
[2023-12-23] MEDS: Finasteride 5 MG TABLET PO (09:21)
[2023-12-23] MEDS: Enoxaparin Sodium 30 MG/0.3 ML SYRINGE SUBCUT (09:21)
[2023-12-23] MEDS: carvediloL 6.25 MG TABLET PO (09:21)
[2023-12-23] MEDS: Docusate Sodium 100 MG CAPSULE PO (09:21)
[2023-12-23] MEDS: Multivitamin TABLET 1 TAB PO (09:21)
[2023-12-23] MEDS: Empagliflozin 25 MG TABLET PO (09:21)
[2023-12-23] MEDS: 0.9 % Sodium Chloride Flush 3 ML SYRINGE IVFLUSH (09:22)
--- NOTE | 2023-12-23 09:33 | P.PNUR_ITS ---
Subjective Subjective Date of Service: 12/23/23 Interval history: Renogram results reviewed Official read pending Split function left 70% right 30% T half estimate 12.5 minutes This does not indicate significant obstruction on the left side Stent is not indicated at this point in time Follow with primary care for hydronephrosis stability Physical Exam 2 Vital Signs: Vital Signs: Last Vital Signs Temp 97.8 F 12/23/23 07:18 Pulse 67 12/23/23 07:18 Resp 16 12/23/23 07:18 BP 125/71 12/23/23 09:15 Pulse Ox 97 12/23/23 07:18 O2 Del Method Room Air 12/23/23 07:18 BMI result Body Mass Index 22.5 Const: General: cooperative, healthy appearing, comfortable and no acute distress Orientation/consciousness: patient oriented x3 HEENT: Face and sinus: Yes normal facial exam Mouth: moist mucous membranes Neck: Neck: Yes normal visual inspection, Yes full ROM and Yes trachea midline Chest: Chest palpation & inspection: normal inspection of the chest Resp: Effort & Inspection: normal respiratory effort, able to speak in complete sentences and no respiratory distress GI: Inspection: Yes normal to inspection Back/Spine/Pelvis: Cervical Spine: normal cervical lordosis Thoracic/Lumbar Spine: thoracic and lumbar spine normal to inspection Skin: General skin exam: no rashes or lesions noted Neuro: General: patient oriented x3, tone normal and moves all extremities Extrem: General: Yes normal to inspection and Yes capillary refill normal Urology Results Labs 12/20/23 09:22 12/21/23 09:35 Labs: Laboratory Results - last 24 hr 12/22/23 12/22/23 12/22/23 11:32 15:57 19:57 POC Glucose 249 H 281 H 233 H 12/23/23 12/23/23 07:09 09:14 POC Glucose 71 151 H Progress Note: A&P Assessment and plan (1) Hydronephrosis: Status: Acute Plan No further need for Urology input Nonacute issue Follow-up with primary care for renal imaging in 6 months to ensure stability Time Spent With Patient Time: Total time managing care of this patient today ____ minutes. Progress Note: Quality Stroke Does the patient have a stroke diagnosis?: No
[2023-12-23 11:15] LABS: Glucose, Whole Blood 230 mg/dL (60-115)
--- NOTE | 2023-12-23 11:22 | PC.NURSE ---
Fasting blood glucose this AM was 71, after having eaten breakfast, Recheck POC WNL at 151
[2023-12-23] MEDS: Insulin Lispro 100 UNIT/ML 3 ML VIAL SUBCUT (11:33)
== END 2023-12-23 12:45 | disposition home health service (06) | DRG 690 ==
LOC: HO.ED 12-19 01:36 → HO.EDOVER 12-19 01:53 → HO.S3 12-19 04:23
PROVIDERS: Admitting Provider Student in an Organized Health Care Education/Training Program; Emergency Provider Emergency Medicine; PCP Family Medicine; Visit Provider Internal Medicine
DX: N13.6 Pyonephrosis (principal); E87.21 Acute metabolic acidosis; I69.354 Hemiplegia and hemiparesis following cerebral infarction affecting left non-dominant side; N17.9 Acute kidney failure, unspecified; I12.9 Hypertensive chronic kidney disease with stage 1 through stage 4 chronic kidney disease, or unspecified chronic kidney disease; N18.30 Chronic kidney disease, stage 3 unspecified; E11.42 Type 2 diabetes mellitus with diabetic polyneuropathy; E11.22 Type 2 diabetes mellitus with diabetic chronic kidney disease; E78.2 Mixed hyperlipidemia; Z20.822 Contact with and (suspected) exposure to COVID-19; Z87.442 Personal history of urinary calculi; Z23 Encounter for immunization; Z79.4 Long term (current) use of insulin; Z79.899 Other long term (current) drug therapy
CPT/HCPCS: 0241U; 36415; 71045; 74176; 78708; 80048; 80053; 81001; 82947; 83605; 85007; 85025; 85027; 87040; 87086; 87493; 87507; 90656; 99285; A9539; J0696; J1650; J1956; J2405

== ENCOUNTER → 2023-12-19 01:49 | Outpatient (BNV) | payer OTHER, SELFPAY | PROVIDERS: Admitting Provider Student in an Organized Health Care Education/Training Program; Emergency Provider Emergency Medicine; PCP Family Medicine; Visit Provider Urology | DX: N13.30 Unspecified hydronephrosis (principal) | CPT/HCPCS: 99222; 99232 ==

== ENCOUNTER → 2023-12-19 01:49 | Outpatient (BNV) | payer OTHER, SELFPAY | PROVIDERS: Admitting Provider Student in an Organized Health Care Education/Training Program; Emergency Provider Emergency Medicine; PCP Family Medicine; Visit Provider Student in an Organized Health Care Education/Training Program | DX: N12 Tubulo-interstitial nephritis, not specified as acute or chronic (principal); N17.9 Acute kidney failure, unspecified; N18.9 Chronic kidney disease, unspecified | CPT/HCPCS: 99223; 99232; 99239; 99499 ==

== ENCOUNTER 2023-12-27 10:03 | Outpatient (REF) | payer OTHER, SELFPAY ==
[2023-12-27 10:33] LABS: MANUAL DIFF FLAG NO
[2023-12-27 10:49] LABS: Basophils Percent Auto 0.4 % (0-2); Eosinophils Absolute Auto 0.2 X10*3/uL (0.0-0.4); Eosinophils Percent Auto 2.2 % (0-4); Hematocrit 38.6 % (42.0-52.0); Imm Gran Abs Auto 0.02 X10*3/uL (0.00-0.03); Imm Gran Pct Auto 0.3 % (0.0-0.4); Lymphocytes Absolute Auto 1.8 X10*3/uL (1.2-4.9); Lymphocytes Percent Auto 25.1 % (20-40); Mean Corpuscular HGB Conc 31.1 g/dl (31.0-36.0); Mean Corpuscular Hemoglobin 25.8 pg (27.0-33.0); Mean Platelet Volume 9.2 fL (9.4-12.4); Monocytes Absolute Auto 0.5 X10*3/uL (0.1-1.2); Monocytes Percent Auto 6.3 % (2-11); Neutrophils Absolute Auto 4.7 x10*3/uL (2.0-8.3); Neutrophils Percent Auto 65.7 % (45-73); Platelet Count 452 X10*3/uL (160-400); Red Blood Count 4.65 X10*6/uL (4.60-5.80); Red Cell Distribution Width 14.9 % (11.0-16.0); White Blood Count 7.1 X10*3/uL (4.8-10.8)
[2023-12-27 10:56] LABS: Estimated Average Glucose 189 mg/dL; Hemoglobin A1C 200.2848 umol/L; Hemoglobin A1c % 8.2 % (<6.0); Total Hemoglobin (HGBA1C) 3048.1743 umol/L
[2023-12-27 11:22] LABS: Alanine Aminotransferase < 6 U/L (0-40); Albumin Level 3.5 g/dL (3.5-5.0); Alkaline Phosphatase 87 U/L (39-117); Anion Gap 17 (12-20); Aspartate Amino Transferase 14 U/L (5-37); Bilirubin Total 0.4 mg/dL (0.0-1.0); Blood Urea Nitrogen 27 mg/dL (9-16); Calcium 9.8 mg/dL (8.4-10.2); Carbon Dioxide 23 mmol/L (22-29); Chloride 102 mmol/L (96-108); Estimated Glomerular Filt Rate 29; Glucose Random 338 mg/dL (60-115); Potassium 4.9 mmol/L (3.3-5.1); Sodium 137 mmol/L (135-145); Total Protein 8.3 g/dL (6.5-8.0)
== END 2023-12-27 10:04 | disposition home or self-care (01) ==
LOC: HO.LAB 10:03
PROVIDERS: Nurse Practitioner Family; PCP Family Medicine; Visit Provider Internal Medicine
DX: E11.22 Type 2 diabetes mellitus with diabetic chronic kidney disease (principal); N18.32 Chronic kidney disease, stage 3b
CPT/HCPCS: 36415; 80053; 83036; 85025

== ENCOUNTER 2024-01-23 10:52 | Outpatient (REF) | payer OTHER, SELFPAY ==
[2024-01-23 13:33] LABS: Estimated Average Glucose 183 mg/dL; Hemoglobin A1C 193.8085 umol/L; Total Hemoglobin (HGBA1C) 3030.5249 umol/L
[2024-01-23 14:06] LABS: Alanine Aminotransferase 8 U/L (0-40); Albumin Level 3.4 g/dL (3.5-5.0); Alkaline Phosphatase 96 U/L (39-117); Anion Gap 14 (12-20); Aspartate Amino Transferase 18 U/L (5-37); Bilirubin Direct 0.1 mg/dL (0.0-0.5); Bilirubin Total 0.3 mg/dL (0.0-1.0); Blood Urea Nitrogen 34 mg/dL (9-16); Calcium 9.4 mg/dL (8.4-10.2); Carbon Dioxide 23 mmol/L (22-29); Chloride 105 mmol/L (96-108); Cholesterol 196 mg/dL (<200); Estimated Glomerular Filt Rate 33; Glucose Random 297 mg/dL (60-115); HDL Cholesterol 38 mg/dL (>40); LDL Cholesterol Calculated 107 mg/dL (<100); Potassium 4.5 mmol/L (3.3-5.1); Sodium 137 mmol/L (135-145); Total Protein 8.1 g/dL (6.5-8.0); Triglycerides 258 mg/dL (<150)
--- OUTSIDE RECORDS SUMMARY | 2024-01-29 17:49 | XMS_ITS | Continuity of Care Document ---
Author Organization [facility] Address [address] [place], [place] [address]chriss mclaughlin, [address] [place] [address]- Care Team Providers Care Wax Cutter Name Role Phone Natacha Olivas MD Primary Care Physician Encounter [facility] Date(s): 11/09/23 - 01/03/[address] [place], [place] [address] Attending Physician: Merlin Granados MD Encounter Type: Pre Office Visit Allergies, Adverse Reactions, Alerts Substance Criticality Severity Reaction Reaction Severity Status sertraline HIves on 02/17; possible chronological association with this med initiation. Alternate allergies could nt be completely excluded hives Active Immunizations Given and Recorded Vaccine Date Status Refusal Reason influenza virus vaccine, inactivated 11/13/23 Give n influenza virus vaccine, inactivated 11/15/22 Nolan rded influenza virus vaccine, inactivated 12/07/21 Nolan rded influenza virus vaccine, inactivated 01/21/21 Nolan rded influenza virus vaccine, inactivated 11/24/19 Nolan rded influenza virus vaccine, inactivated 01/09/19 Nolan rded influenza virus vaccine, inactivated 11/21/17 Nolan rded influenza virus vaccine, inactivated 11/17/16 Nolan rded influenza virus vaccine, inactivated 11/02/15 Nolan rded influenza virus vaccine, inactivated 02/24/15 Nolan rded influenza virus vaccine, inactivated 11/14/14 Nolan rded influenza virus vaccine, inactivated 11/20/13 Nolan rded tetanus/diphtheria/pertussis, acel(Tdap) 11/15/22 Recorded tetanus/diphtheria/pertussis, acel(Tdap) 06/11/12 Recorded SARS-CoV-2 mRNA ([id number]) vax 07/14/21 Recorded zoster vaccine, inactivated 05/12/21 Recorded zoster vaccine, inactivated 01/21/21 Recorded SARS-CoV-2 (COVID-19) mRNA BNT-162b2 vac 01/04/21 Recorded SARS-CoV-2 (COVID-19) mRNA-1273 vaccine 05/06/20 R ecorded SARS-CoV-2 (COVID-19) mRNA-1273 vaccine 04/08/20 R ecorded pneumococcal 23-valent vaccine 11/17/16 Recorded pneumococcal 23-valent vaccine 01/16/07 Recorded pneumococcal 23-valent vaccine 11/28/00 Recorded Zoster Vaccine Live 12/26/14 Recorded pneumococcal 13-valent vaccine 12/26/14 Recorded hepatitis B adult vaccine 06/11/12 Recorded hepatitis B adult vaccine 10/17/10 Recorded hepatitis B adult vaccine 09/19/10 Recorded tetanus-diphtheria toxoids (Td) 03/21/02 Recorded Medications 3 in 1 commode 3 in 1 commode, See Instructions, # 1 each, Refills 0, Tot. Refills 0, Maintenance, as directed, 03/26/23 11:51:00 AM EST, Compound Start Date: 03/26/23 Status: Ordered Quantity: 1.0 Unit: each Repeat number: 1 albuterol CFC free 90 mcg/inh inhalation aerosol 180 mcg, 2, puffs, Inhalation, Every 4 hours, PRN, Refills 0, Maintenance, 02/28/23 10:14:00 AM EST,Inhaler Start Date: 02/28/23 Status: Ordered Repeat number: 1 amLODIPine 5 mg oral tablet = 5 mg, By Mouth, Daily, # 30 tablet, 0 Refills, Maintenance, 03/29/23 9:29:00 AM EST, Tablet, [facility], Partial fill upon patient request if the prescription is for a schedule IIopioid drug., 165, cm, 03/29/23 7:33:00 EST, Height, 75, kg, 03/26/23 14:09:00 EST, Dry Weight Start Date: 03/29/23 Status: Ordered Quantity: 30.0 Unit: tablet Repeat number: 1 bisacodyl 10 mg rectal suppository 1 supp = 10 mg, Rectally, Daily, PRN Constipation, 0 Refills, Maintenance, 02/28/23 10:14:00 AM EST,Suppository, Partial fill upon patient request if the prescription is for a schedule II opioid drug. Start Date: 02/28/23 Status: Ordered Repeat number: 1 carvedilol 6.25 mg oral tablet 6.25 mg, 1, tablet, By Mouth, 2 times a day with meals, # 60 tablet, Refills 0, Tot. Refills 0, Maintenance, 03/29/23 9:31:00 AM EST, Route to Pharmacy Electronically, [facility], Partial fill upon patient request if the prescription is for a schedule II opioid drug., 165, cm, 03/29/23 7:33:00 EST, Height, 75, kg, 03/26/23 14:09:00 EST, Dry Weight Start Date: 03/29/23 Status: Ordered Quantity: 60.0 Unit: tablet Repeat number: 1 cyclobenzaprine 5 mg oral tablet = 5 mg, By Mouth, 3 times a day, 0 Refills, Maintenance, 11/15/23 8:54:00 AM EDT, Tablet, Partial fill upon patient request if the prescription is for a schedule II opioid drug. Start Date: 11/15/23 Status: Ordered Repeat number: 1 docusate sodium = 100 mg, By Mouth, 2 times a day, PRN as needed for constipation, 0 Refills, Maintenance, 03/26/23 5:58:00 PM EST, Partial fill upon patient request if the prescription is for a schedule II opioid drug. Start Date: 03/26/23 Status: Ordered Repeat number: 1 furosemide 20 mg oral tablet 20 mg, 1, tablet, By Mouth, Daily, # 30 tablet, Refills 0, Tot. Refills 0, Maintenance, 03/29/23 9:31:00 AM EST, Route to Pharmacy Electronically, [facility], Partial fill upon patient request if the prescription is for a schedule II opioid drug., 165, cm, 03/29/23 7:33:00 EST, Height, 75, kg, 03/26/23 14:09:00 EST, Dry Weight Start Date: 03/29/23 Status: Ordered Quantity: 30.0 Unit: tablet Repeat number: 1 gabapentin 300 mg oral capsule 300 mg, 1, capsule, By Mouth, Daily at bedtime, # 30 capsule, Refills 0, Tot. Refills 0, Maintenance, 03/29/23 9:31:00 AM EST, Route to Pharmacy Electronically, [facility], Partial fill upon patient request if the prescription is for a schedule II opioid drug., 165, cm, 03/29/23 7:33:00 EST, Height, 75, kg, 03/26/23 14:09:00 EST, Dry Weight Start Date: 03/29/23 Status: Ordered Quantity: 30.0 Unit: capsule Repeat number: 1 Insulin Glargine Solostar Pen 100 units/mL subcutaneous solution = 25 units, Subcutaneous Injection, Daily at bedtime, # 15 mL, 0 Refills, Maintenance, 03/29/23 9:32:00 AM EST, [facility], Partial fill upon patient request if the prescription is for a schedule II opioid drug., 165, cm, 03/29/23 7:33:00 EST, Height, 75, kg, 03/26/23 14:09:00 EST, Dry Weight Start Date: 03/29/23 Status: Ordered Quantity: 15.0 Unit: mL Repeat number: 1 insulin lispro 100 u/ml subcutaneous injection See Instructions, 15 minutes before or immediately after a meal, # 15 mL, 0 Refills, Maintenance, 03/29/23 9:32:00 AM EST, Injection, [facility], Partial fill upon patient request if the prescription is for a schedule II opioid drug., 165, cm, 03/29/23 7:33:00 EST, Height, 75, kg,03/26/23 14:09:00 EST, Dry Weight Start Date: 03/29/23 Status: Ordered Quantity: 15.0 Unit: mL Repeat number: 1 Jardiance 25 mg oral tablet 1 tablet = 25 mg, By Mouth, Daily in AM, 0 Refills, Maintenance, 02/11/23 11:45:00 PM EST, Tablet, Partial fill upon patient request if the prescription is for a schedule II opioid drug. Start Date: 02/11/23 Status: Ordered Repeat number: 1 melatonin 3 mg oral tablet = 3 mg, By Mouth, Daily at bedtime, PRN Insomnia, 0 Refills, Maintenance, 02/28/23 10:13:00 AM EST, Tablet, Partial fill upon patient request if the prescription is for a schedule II opioid drug. Start Date: 02/28/23 Status: Ordered Repeat number: 1 mirtazapine 15 mg oral tablet, disintegrating 1 tablet = 15 mg, By Mouth, Daily at bedtime, # 30 tablet, 0 Refills, Maintenance, 03/29/23 9:33:00 AM EST, DIS Tablet, [facility], Partial fill upon patient request if the prescription is for a schedule II opioid drug., 165, cm, 03/29/23 7:33:00 EST, Height, 75, kg, 03/26/23 14:09:00 EST, Dry Weight Start Date: 03/29/23 Status: Ordered Quantity: 30.0 Unit: tablet Repeat number: 1 pantoprazole 40 mg oral delayed release tablet 1 tablet = 40 mg, By Mouth, Daily in AM, # 30 tablet, 0 Refills, Maintenance, 03/29/23 9:33:00 AM EST, EC Tablet, 165, cm, 03/29/23 7:33:00 EST, Height, 75, kg, 03/26/23 14:09:00 EST, Dry Weight Start Date: 03/29/23 Status: Ordered Quantity: 30.0 Unit: tablet Repeat number: 1 semielectric adjustable hospital bed semielectric adjustable hospital bed, See Instructions, # 1 each, Refills 0, Tot. Refills 0, Maintenance, as directed, 03/23/23 12:15:00 PM EST, Compound Start Date: 03/23/23 Status: Ordered Quantity: 1.0 Unit: each Repeat number: 1 Senna = 8.6 mg, By Mouth, 2 times a day, PRN as needed for constipation, 0 Refills, Maintenance, 03/26/23 6:03:00 PM EST, Partial fill upon patient request if the prescription is for a schedule II opioid drug. Start Date: 03/26/23 Status: Ordered Repeat number: 1 Wheelchair See Instructions, # 1 each, Maintenance, 18 wheelchair, 03/26/23 11:50:00 AM EST, Supply Start Date: 03/26/23 Status: Ordered Quantity: 1.0 Unit: each Repeat number: 1 Problem List Condition Confirmation Course Effective Dates Status H ealth Status Informant Acute anxiety Confirmed Active Cerebrovascular accident (CVA) Confirmed Active Chronic congestive heart failure Confirmed Active Chronic congestive heart failure Confirmed Active CKD stage 3 secondary to diabetes Confirmed Active CKD stage 3 secondary to diabetes Confirmed Active SOB (shortness of breath) Confirmed Active Skin rash Confirmed Active Impaired mobility and activities of daily living Confirmed Active Hemorrhagic cerebrovascular accident (CVA) Confirmed Active HLD (hyperlipidemia) Confirmed Active HTN (hypertension) Confirmed Active Insulin dependent type 2 diabetes mellitus Confirmed Active Left hemiplegia Confirmed Active Insulin long-term use Confirmed Active Neuropathic pain Confirmed Active Oropharyngeal dysphagia Confirmed Active Pneumonia Confirmed Active Urinary retention Confirmed Active Sepsis Confirmed Active Spastic hemiplegia affecting left nondominant side Confirmed Active Spasticity Confirmed Active Thalamic hemorrhage Confirmed Active Urethral stricture Confirmed Active Social History Social History Type Response Smoking Status Never (less than 100 in lifetime) entered on: 03/17/23 Sex Male Sex Representation Male (finding) Patient Care team information Care Team Personnel Name: Eliot Colin RN Position: [facility] RN Member Role: Primary Care Nurse Name: Natacha Olivas MD Position: [facility] Outreach Member Role: PCP Address: [address] [place] [address] Telecom: Name: Louise Raphael RN Position: [facility] RN Member Role: Primary Care Nurse Name: Perlita Elliott RN Position: [facility] RN Member Role: Primary Care Nurse Name: Doris Herr RN Position: S RN Member Role: Primary Care Nurse Name: Etta Lebron RN Position: S RN Member Role: Primary Care Nurse Name: Elizabeth Davis RN Position: S RN Member Role: Primary Care Nurse Name: Yousif Olguin RN Position: S RN Member Role: Primary Care Nurse Name: Lindy Buitrago RN Position: S RN Member Role: Primary Care Nurse Name: Sandra Grimm RN Position: [facility] RN Member Role: Primary Care Nurse Name: Cheryl Boyd RN Position: [facility] RN Member Role: Primary Care Nurse Name: Gina Chin LPN Position: [facility] RN Member Role: Primary Care Nurse Care Team Related Persons Name: JORGE ALBERTO WORTHINGTON Name: VIOLETA WORTHINGTON Name: JERI ERWIN Insurance Providers Guarantor name: [facility] [employer] [facility] Information #: 1 Payer: [facility] OPT Member Number: [id number] Policy Number: NA Group Number: [id number] Health Plan Information #: 2 Payer: [facility] Member Number: [id number] Policy Number: YAMILETH Group Number: [id number] Health Plan Information #: 3 Payer: [facility] Member Number: NA Policy Number: NA Group Number: NA
--- OUTSIDE RECORDS SUMMARY | 2024-01-29 17:49 | XMS_ITS | Continuity of Care Document ---
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 Handle Lathe Operator Name Role Phone Natacha Olivas MD Primary Care Physician Encounter [facility] Date(s): 12/04/23 - 01/03/24 [facility] [address] [place] [address] Drive [address] [place], [place] [address] Attending Physician: AdmOttoniel gregorio Admitting Physician: Admtr, Ottoniel Referring Physician: Admtr, Ar8 Encounter Type: Triage Allergies, Adverse Reactions, Alerts Substance Criticality Severity [...] Recorded tetanus/diphtheria/pertussis, acel(Tdap) 06/11/12 Recorded SARS-CoV-2 mRNA ([id number]-cbupa) vax 07/14/21 Recorded zoster vaccine, inactivated 05/12/21 [...] Refills, Maintenance, 03/29/23 9:29:00 AM EST, Tablet, [facility], Partial fill upon patient request [...] 9:31:00 AM EST, Route to Pharmacy Electronically, [facility], Partial fill upon patient request [...] 9:31:00 AM EST, Route to Pharmacy Electronically, [facility], Partial fill upon patient request [...] 9:31:00 AM EST, Route to Pharmacy Electronically, [facility], Partial fill upon patient request [...] 0 Refills, Maintenance, 03/29/23 9:32:00 AM EST, [facility], Partial fill upon patient request [...] Refills, Maintenance, 03/29/23 9:32:00 AM EST, Injection, [facility], Partial fill upon patient request [...] Maintenance, 03/29/23 9:33:00 AM EST, DIS Tablet, [facility], Partial fill upon patient request [...] Team Personnel Name: Eliot Colin RN Position: [facility] RN Member Role: Primary Care Nurse Name: Natacha Olivas MD Position: [facility] Outreach Member Role: PCP Address: [address] [place] [address] Telecom: Name: Louise Raphael RN Position: [facility] RN Member Role: Primary Care Nurse Name: Perlita Elliott RN Position: [facility] RN Member Role: Primary Care Nurse Name: Doris Herr RN Position: S RN Member Role: Primary Care Nurse Name: Etta Lebron RN Position: [facility] RN Member Role: Primary Care Nurse Name: Elizabeth Davis RN Position: [facility] RN Member Role: Primary Care Nurse Name: Yousif Olguin RN Position: [facility] RN Member Role: Primary Care Nurse Name: Lindy Buitrago RN Position: [facility] RN Member Role: Primary Care Nurse Name: Sandra Grimm RN Position: [facility] RN Member Role: Primary Care Nurse Name: Cheryl Boyd RN Position: [facility] RN Member Role: Primary Care Nurse Name: Gina Chin LPN Position: [facility] RN Member Role: Primary Care Nurse Care Team Related Persons Name: JORGE ALBERTO WORTHINGTON Name: VIOLETA WORTHINGTON Name: EJRI ERWIN Insurance Providers Guarantor name: EVY WORTHINGTON Health Plan Information #: 1 Payer: [facility] OPT Member Number: NA Policy Number: NA Group Number: NA Health Plan Information #: 2 Payer: [facility] Member Number: NA Policy Number: NA Group Number: NA
== END 2024-01-23 10:53 | disposition home or self-care (01) ==
LOC: HO.HHCL 10:52
PROVIDERS: Visit Provider Family Medicine
DX: E11.22 Type 2 diabetes mellitus with diabetic chronic kidney disease (principal); N18.32 Chronic kidney disease, stage 3b
CPT/HCPCS: 36415; 80048; 80061; 80076; 83036

== ENCOUNTER 2024-02-12 11:08 | Outpatient (AMB) | payer MEDICARE, MEDICAID, SELFPAY ==
--- OUTSIDE RECORDS SUMMARY | 2024-02-12 11:10 | XMS_ITS ---
Author Organization Unknown ALLERGIES AND ADVERSE REACTIONS No information ASSESSMENT No information CHIEF COMPLAINT No information MEDICATIONS No information OBJECTIVE DATA No information PHYSICAL EXAMINATION No information TREATMENT PLAN Planned Care Start Date Provider Encounter for Check-up [id number] PROBLEMS No information RESULTS No information REVIEW OF SYSTEMS No information SUBJECTIVE DATA No information VITAL SIGNS No information
--- NOTE | 2024-02-12 11:14 | MHC.OFFVIS ---
Intake Visit Reasons: [facility]:UTI(HX BPH/Retention) Intake Note: Patient is present for [facility]: UTI(HX BPH/RETENTION Urology Medication:NONE Antibiotic Allergy:NONE Blood Thinner:NONE TODAY'S PVR:0ML'S Cream Ripener Required: No Allergies No Known Allergies Allergy (Mild, Verified 02/12/24 11:16) N/A HPI Comments Details: Hector is a Portuguese-speaking male. He is seen for the following urologic conditions - hydronephrosis Follow-up from initial hospital evaluation Repeat imaging shows normal Lasix renogram Hydronephrosis Background insulin-dependent diabetes, hypertension, CKD stage 3, mood disorder, neuropathy Presentation through hospital found to have acute urinary tract infection UA positive glucose positive blood positive leukocytes negative nitrites - on Jardiance. Now with complication associated with medication. Urine culture negative Imaging Mild left hydronephrosis and mild left ureterectasis is present similar findings present for 09/07/2023. Lasix renogram - 01/12 Normal functioning renal parenchyma bilaterally with no evidence for obstruction PVR today 0 cc Refill medications - finasteride Six-month follow-up [facility] Medical History (Updated 02/18/24 @ 11:04 by Ebenezer Earl MD) NSTEMI (non-ST elevated myocardial infarction) Sepsis Pneumonia Type 2 diabetes mellitus with diabetic polyneuropathy Diverticulosis Erectile dysfunction BPH (benign prostatic hyperplasia) Carpal tunnel syndrome Cataracts, bilateral GERD (gastroesophageal reflux disease) Kidney stones Type 2 diabetes mellitus with chronic kidney disease Chronic kidney disease, stage 3 Type 2 diabetes mellitus with hyperglycemia Essential hypertension Hyperlipidemia LDL goal <70 Surgical History Hx of colonoscopy Hx of lithotripsy Family History Father No problems noted. Mother Diabetes mellitus Brother Diabetes mellitus Sister Diabetes mellitus Social History Household Members: Family and None Housing: Apartment Do you presently have visiting nurse or other home services: Yes (clarifier operator & vna's) Alcohol intake: never Patient Tobacco Use Status: Never used Tobacco Advance Directives Date on File: 04/11/23 service: No Current occupational status: retired Review of Systems Const Denies chills and Denies fever(s) Card Reports no additional complaints and Denies syncope Resp Denies cough GI Denies abdominal pain and Denies heartburn Reports as per HPI and Denies change in libido Neuro Denies syncope Psych Denies change in libido Endo Denies change in libido Physical Exam Const General: cooperative, healthy appearing, comfortable and no acute distress Orientation/consciousness: patient oriented x3 HEENT Face and sinus: Yes normal facial exam Mouth: moist mucous membranes Neck Neck: Yes normal visual inspection, Yes full ROM and Yes trachea midline Chest Chest palpation & inspection: normal inspection of the chest Resp Effort & Inspection: normal respiratory effort, able to speak in complete sentences and no respiratory distress GI Inspection: Yes normal to inspection Back/Spine/Pelvis Cervical Spine: normal cervical lordosis Thoracic/Lumbar Spine: thoracic and lumbar spine normal to inspection Skin General skin exam: no rashes or lesions noted Neuro General: patient oriented x3, gait normal, tone normal and moves all extremities Extrem General: Yes normal to inspection and Yes capillary refill normal Office Procedures Post Void Residual Post Residual Void Post Void Residual (PVR): 0 [id number]-[id number] Void Residual by ultrasound Results AMB Urinalysis, Automated UA Leukoctes 70 Sung/uL Last Edit by ALIZA Moody on 02/12/24 11:32 UA Nitrite Negative Last Edit by ALIZA Moody on 02/12/24 11:32 UA Urobilinogen 0.2 mg/dL Last Edit by ALIZA Moody on 02/12/24 11:32 UA Protein 30 mg/dL Last Edit by ALIZA Moody on 02/12/24 11:32 UA pH 6.0 Last Edit by ALIZA Moody on 02/12/24 11:32 UA Blood 80 Dash/uL Last Edit by ALIZA Moody on 02/12/24 11:32 UA Specific [place] 1.015 Last Edit by ALIZA Moody on 02/12/24 11:32 UA Ketone Negative Last Edit by ALIZA Moody on 02/12/24 11:32 UA Bilirubin 0 mg/dL Last Edit by ALIZA Moody on 02/12/24 11:32 UA Glucose 1000 mg/dL Last Edit by ALIZA Moody on 02/12/24 11:32 Results Reviewed Results Reviewed: Laboratory Last Values Urine pH (Auto) 6.0 02/12/24 11:31 Specific [place] (Auto) 1.015 02/12/24 11:31 Urine Protein (Auto) 30 mg/dL 02/12/24 11:31 Glucose (UA)(Auto) 1000 mg/dL 02/12/24 11:31 Urine Ketones (Auto) Negative 02/12/24 11:31 Urine Blood (Auto) 80 Dash/uL 02/12/24 11:31 Urine Nitrite (Auto) Negative 02/12/24 11:31 Urine Bilirubin (Auto) 0 mg/dL 02/12/24 11:31 Urine Urobilinogen (Auto) 0.2 mg/dL 02/12/24 11:31 Leukocyte Esterase (Auto) 70 Sung/uL 02/12/24 11:31 Assessment & Plan Assessment & Plan (1) BPH (benign prostatic hyperplasia): Code(s): N40.0 - Benign prostatic hyperplasia without lower urinary tract symptoms Category: Medical (2) Erectile dysfunction associated with type 2 diabetes mellitus: Code(s): E11.69 - Type 2 diabetes mellitus with other specified complication; N52.1 - Erectile dysfunction due to diseases classified elsewhere Category: Medical Plan Six-month follow-up Orders: Orders AMB Urinalysis Automated 02/12/24 Z13.9 - Encounter for screening, unspecified Medications: New doxazosin 4 mg PO BEDTIME 90 tabs 1RF 90 days N13.8 - Other obstructive and reflux uropathy, N40.0 - Benign prostatic hyperplasia without lower urinary tract symptoms, N40.1 - Benign prostatic hyperplasia with lower urinary tract symptoms finasteride 5 mg PO DAILY 90 tabs 1RF 90 days N13.8 - Other obstructive and reflux uropathy, N40.0 - Benign prostatic hyperplasia without lower urinary tract symptoms, N40.1 - Benign prostatic hyperplasia with lower urinary tract symptoms, R33.9 - Retention of urine, unspecified Patient Instructions: Imaging studies, laboratory and physical exam results were discussed and reviewed in detail. No major barriers to patient understanding were identified. An opportunity to ask questions regarding the treatment plan was provided. All questions were answered. The patient expressed understanding and agreement with the above treatment plan. The patient is aware they should contact our office by phone for worsening of their current condition or the appearance of new urologic symptoms. Compliance is encouraged with any medications and followup testing that is ordered. It is a privilege to participate in the urologic care of your patient. If you have any questions or concerns regarding treatment for the above conditions, or other urologic issues, please do not hesitate to contact me. The office telephone contact is [phone]. This note is constructed using voice recognition software. While every effort has been made to ensure accuracy associate professor of biology errors may have been included. Yours sincerely, Dr Ebenezer Earl MD, YOG[facility] - Urology Providers of Expert, Compassionate Care for the Genitourinary System Coding Level of Care Code Est Pt Level 4 (13614) Diagnoses BPH (benign prostatic hyperplasia) N40.0 Erectile dysfunction associated with type 2 diabetes mellitus E11.69; N52.1 CPT Codes Post Residual Void - PVR CPT Code: 77890-Bplp Void Residual by ultrasound ([id number])
== END 2024-02-12 11:59 | disposition home or self-care (01) ==
PROVIDERS: PCP Family Medicine; Visit Provider Urology
DX: Z13.9 Encounter for screening, unspecified (principal)

== ENCOUNTER → 2024-02-12 11:08 | Outpatient (BNVA) | payer MEDICARE, MEDICAID, SELFPAY | PROVIDERS: PCP Family Medicine; Visit Provider Urology | DX: N40.0 Benign prostatic hyperplasia without lower urinary tract symptoms (principal); E11.69 Type 2 diabetes mellitus with other specified complication; N52.1 Erectile dysfunction due to diseases classified elsewhere | CPT/HCPCS: 51798; 81003; 99212 ==

== ENCOUNTER 2024-02-18 11:39 | Outpatient (AMB) | payer OTHER, SELFPAY ==
[2024-02-18 11:43] VITALS: BP 120/76; PULSE 85
--- NOTE | 2024-02-18 11:43 | MHC.OFFVIS ---
Vital Signs 02/18/24 11:43 Height 5 ft 5 in BMI Reason not done Patient refused/unable BP 120/76 Blood Pressure Location Rt brachial Position Sitting Pulse 85 Pulse Source Pulse Oximeter Intake Visit Reasons: T2DM Intake Note: Patient presents today to re-establish treatment for Type 2 Diabetes Mellitus: Last Diabetic eye exam was on: DUE Last Podiatry exam was on: Does not see a Bridge Ironworker Most recent HbA1c: 8.0%, 01/23/2024 Random Glucose- 399 mg/dL, Today 11:47 AM Assistant Terminal Manager Required: Yes Assistant Terminal Manager Language: Seed Core Operator Services: Assistant Terminal Manager Present Assistant Terminal Manager [facility] Accompanied by: Significant Other Allergies No Known Allergies Allergy (Mild, Verified 02/12/24 11:16) N/A Medication List - Last Reconciled 02/18/24 by Vivian Krishnamurthy PA-C amlodipine (Norvasc) 5 mg PO BEDTIME blood sugar diagnostic (OneTouch Verio test strips) 4 x/day blood-glucose meter (OneTouch Verio Meter) As directed 4x/day carvedilol 6.25 mg PO BIDWM cefuroxime axetil 250 mg PO Q12H docusate sodium 100 mg PO BID doxazosin 4 mg PO BEDTIME 90 days empagliflozin (Jardiance) 25 mg PO DAILY finasteride 5 mg PO DAILY 90 days furosemide 20 mg PO Q48H gabapentin 300 mg PO BEDTIME insulin glargine U-300 conc (Toujeo SoloStar U-300 Insulin) 10 units subcut BEDTIME lancets (OneTouch Delica Lancets) four times a day loratadine 10 mg PO Q48H PRN mirtazapine 15 mg PO BEDTIME multivitamin 1 tab PO DAILY pantoprazole 40 mg PO DAILY@0630 pen needle, diabetic (Pentips Pen Needle) As directed 4 TIMES A DAY polyethylene glycol 3350 (Gavilax) 17 grams PO BEDTIME PRN sennosides (senna) 8.6 - 17.2 mg PO BEDTIME PRN HPI HPI T2DM: Details: Patient is a 78-year-old male with a significant past medical history of chronic kidney disease stage 4, hypertension, hyperlipidemia, and type 2 diabetes presenting today for a diabetic follow-up. Today [place], his , and hu Leiva, are here. They help manage pt's dm. Zayra also present for interpretation. Endo: He was last seen by Dr. Mcghee in December. In December his A1c was 6.5. He was previously on higher doses of insulin but states that he stopped a lot of this due to low blood sugars. His current dosage of the Toujeo is 10 units nightly and when he saw Dr. Mcghee he was actually on 108 units. He also sometimes skips the Toujeo at night. His Humalog as a sliding scale and it ranges from 0-8 units. His NETWORK ACCOUNT MANAGER states that there are a lot of times that she does not give him any Humalog because the starting blood sugar is on the low end of normal like 140. His blood sugar here today in the office is 400. He is asymptomatic. He had cornmeal for breakfast and did not have any Humalog with this. She states he had no Humalog because it starting blood sugar was 142. The NETWORK ACCOUNT MANAGER and both find the sliding scale to be very confusing and a lot of times he will use about 4 units or no units. In the past he tried Trulicity but did not tolerate it due to diarrhea CGM-his Dexcom download shows that the average glucose is 272 with a G mi of 9.8%. He is only in range 18% and the rest hyperglycemic. 0 hypoglycemic events. CV: Blood pressure today in the office is 120/60. He is currently on amlodipine 5 mg, carvedilol 6.25 mg twice a day, furosemide 20 mg p.r.n. cholesterol is diet controlled [facility] Medical History (Updated 02/18/24 @ 11:04 by Ebenezer Earl MD) NSTEMI (non-ST elevated myocardial infarction) Sepsis Pneumonia Type 2 diabetes mellitus with diabetic polyneuropathy Diverticulosis Erectile dysfunction BPH (benign prostatic hyperplasia) Carpal tunnel syndrome Cataracts, bilateral GERD (gastroesophageal reflux disease) Kidney stones Type 2 diabetes mellitus with chronic kidney disease Chronic kidney disease, stage 3 Type 2 diabetes mellitus with hyperglycemia Essential hypertension Hyperlipidemia LDL goal <70 Surgical History Hx of colonoscopy Hx of lithotripsy Family History Father No problems noted. Mother Diabetes mellitus Brother Diabetes mellitus Sister Diabetes mellitus Social History Household Members: Family and None Housing: Apartment Do you presently have visiting nurse or other home services: Yes (compliance advisor & vna's) Alcohol intake: never Patient Tobacco Use Status: Never used Tobacco Advance Directives Date on File: 04/11/23 service: No Current occupational status: retired Physical Exam Vital Signs: Last Vital Signs Pulse 85 02/18/24 11:43 BP 120/76 02/18/24 11:43 Const Orientation/consciousness: patient oriented x3 HEENT Ears: hearing grossly normal bilaterally Neck Thyroid: Thyroid normal Lymphatic: no lymphadenopathy noted Resp Auscultation: clear to auscultation bilaterally Cardio Rate: regular rate Rhythm: regular rhythm Heart sounds: S1 normal heart sound present and S2 normal heart sound present Skin General skin exam: no rashes or lesions noted Neuro General: patient oriented x3, gait normal and no focal motor deficits Results Reviewed Results Reviewed: Laboratory Last Values Glucose (Clinic) 399 mg/dL (60-115) H* 02/18/24 11:47 Laboratory Tests 12/19/23 01/23/24 00:17 11:00 Sodium 137 Potassium 4.5 Chloride 105 Carbon Dioxide 23 Anion Gap 14 BUN 34 H Creatinine 1.99 H Estimated GFR 33 Triglycerides 258 H Cholesterol 196 LDL Cholesterol, Calc 107 H HDL Cholesterol 38 L Urine Protein 100 (2+) H Assessment & Plan Assessment & Plan (1) Type 2 diabetes mellitus with chronic kidney disease: Code(s): E11.22 - Type 2 diabetes mellitus with diabetic chronic kidney disease Category: Medical Qualifiers: Chronic kidney disease stage: stage 3 (moderate) Chronic kidney disease stage 3 subtype: stage 3b (GFR 30-44) 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 Discussed the importance of compliance. We will start on Humalog 4 units with meals and 2 units for snacks. His snack often consists of something sweet and sometimes juice. He does not want to cut this out yet. He will continue with the Jardiance. He will return for follow up in 2 weeks. Sooner if needed. (2) Essential hypertension: Code(s): I10 - Essential (primary) hypertension Category: Medical Plan: WNL. Continue current regimen (3) Hyperlipidemia LDL goal <70: Code(s): E78.5 - Hyperlipidemia, unspecified Category: Medical Plan: As above. Medications: New lancets (OneTouch UltraSoft 2 Lancet) use daily As directed to monitor blood sugars 100 ea 2RF insulin lispro (Humalog KwikPen (U-100) Insulin) 4 units (0.04 mL) subcut TID 15 mL 2RF empagliflozin (Jardiance) 25 mg PO DAILY 90 tabs 0RF blood-glucose sensor (Simple IT G7 Sensor device) Use daily As directed to monitor glucose. change q 10 days 3 ea 5RF E11.65 - Type 2 diabetes mellitus with hyperglycemia, Z79.4 - MCFP (current) use of insulin glucose (Dex4 Glucose) until symptoms of low blood sugar are controlled 16 grams (4 x 4 gram) PO Q15M PRN 100 tabs 0RF hypoglycemia Changed From insulin glargine U-300 conc (Toujeo SoloStar U-300 Insulin) 15 units subcut BEDTIME To insulin glargine U-300 conc (Toujeo SoloStar U-300 Insulin) 15 units (0.05 mL) subcut BEDTIME 30 days 4.5 mL 3RF From blood-glucose meter (OneTouch Verio Meter) As directed 4x/day 1 ea 0RF E11.42 - Type 2 diabetes mellitus with diabetic polyneuropathy To blood-glucose meter As directed 4x/day 1 ea 0RF E11.42 - Type 2 diabetes mellitus with diabetic polyneuropathy Refilled blood sugar diagnostic (OneTouch Verio test strips) 4 x/day 150 ea 11RF E11.42 - Type 2 diabetes mellitus with diabetic polyneuropathy, Z79.4 - termite exterminator helper (current) use of insulin Patient Instructions: Increase toujeo to 15 units nightly start humalog 4 units TID with meals, use humalog 2 units with snacks continue jardiance 25 mg daily Coding Level of Care Code Est Pt Level 4 (16626) Complex EM visit Add On G2211 Diagnoses Type 2 diabetes mellitus with stage 3b chronic kidney disease, with long-term current use of insulin E11.21; N18.32; Z79.4 Chronic kidney disease stage: stage 3 (moderate) Chronic kidney disease stage 3 subtype: stage 3b (GFR 30-44) Diabetes mellitus group home insulin use: with group home use Essential hypertension I10 Hyperlipidemia LDL goal <70 E78.5
[2024-02-18 11:55] LABS: Glucose, Whole Blood 399 mg/dL (60-115)
== END 2024-02-18 12:29 | disposition home or self-care (01) ==
PROVIDERS: PCP Family Medicine; Visit Provider Physician Assistant
DX: E11.21 Type 2 diabetes mellitus with diabetic nephropathy (principal); N18.32 Chronic kidney disease, stage 3b; Z79.4 Long term (current) use of insulin; I10 Essential (primary) hypertension; E78.5 Hyperlipidemia, unspecified

== ENCOUNTER → 2024-02-18 11:39 | Outpatient (BNVA) | payer OTHER, SELFPAY | PROVIDERS: PCP Family Medicine; Visit Provider Physician Assistant | DX: E11.21 Type 2 diabetes mellitus with diabetic nephropathy (principal); I12.9 Hypertensive chronic kidney disease with stage 1 through stage 4 chronic kidney disease, or unspecified chronic kidney disease; E11.22 Type 2 diabetes mellitus with diabetic chronic kidney disease; N18.32 Chronic kidney disease, stage 3b; E78.5 Hyperlipidemia, unspecified; Z79.4 Long term (current) use of insulin | CPT/HCPCS: 82947; 99212 ==

== ENCOUNTER 2024-02-24 14:50 | Inpatient (IN) | payer MEDICARE, MEDICAID, SELFPAY ==
--- NOTE | ~2024-02-24 | CT_ITS ---
CLINICAL HISTORY: Left-sided abdominal pain question diverticulitis CT abdomen and pelvis without contrast Comparison: CT/SR - CT ABDOMEN PELVIS WO IV CON - 12/19/23 02:[address]/[place]/SR - CT ABDOMEN PELVIS WO IV CON - 06/14/23 15:[address] - CT ABDOMEN PELVIS WO CON - 09/05/20 21:56 EDT Findings: The lung bases are clear. Mild cardiomegaly. Coronary artery calcifications present. Innumerable small stones throughout the gallbladder. Spleen, adrenal glands, pancreas, liver are unremarkable. Right kidney is normal. No right ureteral stone. There is a 6 cm cyst in the superior pole of the left kidney. Moderate left hydronephrosis present. Diffuse left perinephric stranding present. Mild to moderate left hydroureter. No stones within the kidney or the ureter. This appearance of the left kidney is similar dating back to 06/14/2023, although hydroureteronephrosis has worsened slightly. No renal stones. No bowel obstruction, pneumoperitoneum, or pneumatosis. There are scattered colonic diverticula, however no evidence of diverticulitis. Pelvic contents unremarkable. Normal appendix. Urinary bladder is decompressed and thick-walled. No acute fracture. IMPRESSION: 1. Persistent left perinephric and periureteral stranding with moderate left hydroureteronephrosis. Collecting system dilation has worsened slightly in comparison to 06/14/2023. No stone in the ureter. Findings raise concern for ureteral stricture or malignancy, Versus upper tract infection. This document has been electronically signed by: Joel Mejia MD on 02/24/2024 19:59:29
--- NOTE | ~2024-02-24 | XR_ITS ---
EXAMINATION: XR CHEST 1 VIEW HISTORY: Hypoxia COMPARISON: Comparison is made with the prior examination dated 12/19/2023. FINDINGS: A single AP portable view of the chest performed at 11:46 AM is submitted. The lungs are expanded and clear. There is no pleural effusion, pneumothorax, or pulmonary vascular congestion. The heart is normal in size. There is degenerative disc disease of the spine. XR/XR chest 1V IMPRESSION: No acute cardiopulmonary abnormality. Electronically signed by: Merlin Fuentes MD 02/25/2024 12:39 PM [facility] [place]
[2024-02-24 14:58] VITALS: BP 132/68; PULSE 80; O2SAT 97
[2024-02-24 15:07] VITALS: BP 119/49; PULSE 77; RESP 16; TEMP 37.3; O2SAT 96; BMI 20.8
[2024-02-24 15:21] LABS: MANUAL DIFF FLAG NO
[2024-02-24 15:22] LABS: Basophils Percent Auto 0.2 % (0-2); Eosinophils Percent Auto 0.1 % (0-4); Hematocrit 37.5 % (42.0-52.0); Hemoglobin 12.2 g/dl (14.0-18.0); Imm Gran Abs Auto 0.09 X10*3/uL (0.00-0.03); Imm Gran Pct Auto 0.5 % (0.0-0.4); Lymphocytes Absolute Auto 0.9 X10*3/uL (1.2-4.9); Lymphocytes Percent Auto 4.4 % (20-40); Mean Corpuscular HGB Conc 32.5 g/dl (31.0-36.0); Mean Corpuscular Hemoglobin 26.1 pg (27.0-33.0); Mean Corpuscular Volume 80.1 fL (80.0-98.0); Monocytes Absolute Auto 1.4 X10*3/uL (0.1-1.2); Monocytes Percent Auto 7.3 % (2-11); Neutrophils Absolute Auto 17.3 x10*3/uL (2.0-8.3); Neutrophils Percent Auto 87.5 % (45-73); Platelet Count 316 X10*3/uL (160-400); Red Blood Count 4.68 X10*6/uL (4.60-5.80); Red Cell Distribution Width 15.9 % (11.0-16.0); White Blood Count 19.7 X10*3/uL (4.8-10.8)
[2024-02-24 15:45] LABS: Alanine Aminotransferase < 6 U/L (0-40); Albumin Level 3.6 g/dL (3.5-5.0); Anion Gap 16 (12-20); Aspartate Amino Transferase 13 U/L (5-37); Bilirubin Total 0.6 mg/dL (0.0-1.0); Blood Urea Nitrogen 28 mg/dL (9-16); Calcium 9.3 mg/dL (8.4-10.2); Carbon Dioxide 17 mmol/L (22-29); Chloride 105 mmol/L (96-108); Creatinine Clr Calc Pharmacy 22.6; Estimated Glomerular Filt Rate 26; Glucose Random 232 mg/dL (60-115); Potassium 4.2 mmol/L (3.3-5.1); Sodium 134 mmol/L (135-145); Total Protein 8.5 g/dL (6.5-8.0)
[2024-02-24 16:18] LABS: Alkaline Phosphatase 101 U/L (39-117)
--- NOTE | 2024-02-24 18:26 | ED_ITS ---
HPI - Abdominal Pain General Chief Complaint: Abdominal Pain Stated Complaint: L abd pain Time Seen by Provider: 02/24/24 18:15 History of Present Illness HPI narrative: Patient is a 78-year-old male with a history of diabetes. Presented today with left-sided abdominal pain. The pain has been ongoing for about a day. Not associated with any nausea vomiting no diarrhea. Patient is from home. No fever no chills. History of pyelonephritis in the past. History of acute on chronic renal failure. If she a left-sided weakness secondary to CVA. Related Data Home Medications ?Medication ?Instructions ?Recorded ?Confirmed furosemide 20 mg tablet 20 mg PO Q48H 03/29/22 02/18/24 pen needle, diabetic 32 gauge x #50 ea 03/29/22 02/18/24 (Pentips Pen Needle) amlodipine 5 mg tablet (Norvasc) 5 mg PO BEDTIME 04/10/23 02/18/24 gabapentin 300 mg capsule 300 mg PO BEDTIME 04/10/23 02/18/24 carvedilol 6.25 mg tablet 6.25 mg PO BIDWM 12/19/23 02/18/24 docusate sodium 100 mg capsule 100 mg PO BID 12/19/23 02/18/24 loratadine 10 mg tablet 10 mg PO Q48H PRN allergies 12/19/23 02/18/24 mirtazapine 15 mg tablet 15 mg PO BEDTIME 12/19/23 02/18/24 multivitamin 1 tab PO DAILY 12/19/23 02/18/24 pantoprazole 40 mg tablet,delayed 40 mg PO DAILY@0630 12/19/23 02/18/24 release polyethylene glycol 3350 17 17 g PO BEDTIME PRN constipation 12/19/23 02/18/24 gram/dose oral powder (Gavilax) sennosides 8.6 mg tablet (senna) 8.6 - 17.2 mg PO BEDTIME PRN 12/19/23 02/18/24 constipation Previous Rx's ?Medication ?Instructions ?Recorded lancets 33 gauge (Raad Mast #200 ea 04/28/21 Lancets) cefuroxime axetil 250 mg tablet 250 mg PO Q12H #14 tabs 12/23/23 doxazosin 4 mg tablet 4 mg PO BEDTIME 90 days #90 tabs 02/12/24 finasteride 5 mg tablet 5 mg PO DAILY 90 days #90 tabs 02/12/24 blood sugar diagnostic (OneTouch #150 ea 02/18/24 Verio test strips) blood-glucose meter #1 ea 02/18/24 blood-glucose sensor (Dexcom G7 #3 ea 02/18/24 Sensor device) empagliflozin 25 mg tablet 25 mg PO DAILY #90 tabs 02/18/24 (Jardiance) glucose 4 gram chewable tablet 16 g (4 x 4 gram) PO Q15M PRN 02/18/24 (Dex4 Glucose) hypoglycemia #100 tabs insulin glargine U-300 conc 300 15 unit (0.05 mL) subcut BEDTIME 02/18/24 unit/mL (1.5 mL) subcutaneous pen 30 days #4.5 mL (Toujeo SoloStar U-300 Insulin) insulin lispro 100 unit/mL 4 unit (0.04 mL) subcut TID #15 mL 02/18/24 subcutaneous pen (Humalog KwikPen (U-100) Insulin) lancets 30 gauge (OneTouch #100 ea 02/18/24 UltraSoft 2 Lancet) Allergies Allergy/AdvReac Type Severity Reaction Status Date / Time No Known Allergies Allergy Mild N/A Verified 02/24/24 15:09 Review of Systems Review of Systems Positive abdominal pain on the left side Yes all other systems are reviewed and are negative [facility] Past Medical History Attestation statement: The following information was validated with the patient. Medical History NSTEMI (non-ST elevated myocardial infarction) Sepsis Pneumonia Type 2 diabetes mellitus with diabetic polyneuropathy Diverticulosis Erectile dysfunction BPH (benign prostatic hyperplasia) Carpal tunnel syndrome Cataracts, bilateral GERD (gastroesophageal reflux disease) Kidney stones Type 2 diabetes mellitus with chronic kidney disease Chronic kidney disease, stage 3 Type 2 diabetes mellitus with hyperglycemia Essential hypertension Hyperlipidemia LDL goal <70 Surgical History Hx of colonoscopy Hx of lithotripsy Family History Family History Father No problems noted. 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) Alcohol intake: never Patient Tobacco Use Status: Never used Tobacco Advance Directives: Yes Advance Directives on File: Yes Advance Directives Date on File: 04/11/23 Do you have a plan to hurt others: No Plan service: No Current occupational status: retired Physical Exam ED Vital Signs: Vital Signs - 24 hr 02/24/24 15:07 02/24/24 18:42 02/24/24 19:59 Temperature 99.1 F 99.3 F Pulse Rate 77 76 Respiratory Rate 16 16 Blood Pressure 119/49 L 135/52 L Pulse Oximetry 96 94 88 L Oxygen Delivery Method Room Air Room Air Room Air Oxygen Flow Rate 02/24/24 19:59 Temperature Pulse Rate Respiratory Rate Blood Pressure Pulse Oximetry 94 Oxygen Delivery Method Nasal Cannula Oxygen Flow Rate 2 BMI result Body Mass Index 20.8 Appearance: Alert. Oriented X3. No acute distress. Eyes: Pupils equal, round and reactive to light. ENT: Pharynx normal. Neck: Normal inspection. Neck supple. No lymph nodes noted. No crepitus CVS: Normal heart rate and rhythm. Pulses normal. Normal S1 and S2 Respiratory: No respiratory distress. Breath sounds normal. No Wheezing. No rales Abdomen: Mild left-sided abdominal tenderness no rebound or guarding No rigidity. No distention. good BS x4 Skin: Skin warm and dry. Normal skin color. Normal skin turgor. Extremities: No lower extremity edema. Neurovascular intact to all extremities. No Lacerations. No Rash Neuro: Oriented X 3. No motor deficit. No sensory deficit. Moving all extermities. No slurred speech Medical Decision Making Medical Decision Making MDM Narrative: 78 years old presents today with left-sided abdominal pain. Since last night. No vomiting positive nausea. CT scan of the abdomen pelvis showed no evidence of diverticulitis. It did show a ureteral stricture. Patient's urine was grossly infected. There is no signs of sepsis as patient's lactate is less than 2. IV fluids given cultures obtained antibiotics started as patient an elevated white count. Case discussed with hospitalist team will admit for further evaluation. Differential Diagnosis Differential Diagnoses: The differential diagnosis associated with the presentation includes Urinary tract infection, diverticulitis, abscess, perforation Admission/Observation Consideration of admission/observation: Escalation of care including admission/observation considered Consult Healthcare Provider Management of the patient was discussed with: Hospitalist Lab Data MDM Lab Attestation statement: I reviewed the patient's lab results. 02/24/24 15:16 02/24/24 15:16 Labs: Lab Results 02/24/24 02/24/24 02/24/24 Range/Units 15:16 18:36 20:58 WBC 19.7 H (4.8-10.8) X10*3/uL RBC 4.68 (4.60-5.80) X10*6/uL Hgb 12.2 L (14.0-18.0) g/dl Hct 37.5 L (42.0-52.0) % MCV 80.1 (80.0-98.0) fL MCH 26.1 L (27.0-33.0) pg MCHC 32.5 (31.0-36.0) g/dl RDW 15.9 (11.0-16.0) % Plt Count 316 D (160-400) X10*3/uL MPV 9.0 L (9.4-12.4) fL Immature Gran % (Auto) 0.5 H (0.0-0.4) % Neut % (Auto) 87.5 H (45-73) % Lymph % (Auto) 4.4 L (20-40) % [place] % (Auto) 7.3 (2-11) % Eos % (Auto) 0.1 (0-4) % Baso % (Auto) 0.2 (0-2) % Lymph # (Auto) 0.9 L (1.2-4.9) X10*3/uL [place] # (Auto) 1.4 H (0.1-1.2) X10*3/uL Eos # (Auto) 0.0 (0.0-0.4) X10*3/uL Baso # (Auto) 0.0 (0.0-0.2) X10*3/uL Abs Immat Gran (auto) 0.09 H (0.00-0.03) X10*3/uL Absolute Neuts (auto) 17.3 H (2.0-8.3) x10*3/uL Absolute Nucleated RBC 0.000 (0.0-0.012) X10*3/uL Nucleated RBC % (auto) 0.0 (0.0-0.2) /100WBC Sodium 134 L (135-145) mmol/L Potassium 4.2 (3.3-5.1) mmol/L Chloride 105 (96-108) mmol/L Carbon Dioxide 17 L (22-29) mmol/L Anion Gap 16 (12-20) BUN 28 H (9-16) mg/dL Creatinine 2.47 H (0.5-1.4) mg/dL Estim Creat Clear Calc 22.6 Estimated GFR 26 Random Glucose 232 H (60-115) mg/dL Lactic Acid 1.8 (0.5-2.0) mmol/L Calcium 9.3 (8.4-10.2) mg/dL Total Bilirubin 0.6 (0.0-1.0) mg/dL AST 13 (5-37) U/L ALT < 6 (0-40) U/L Alkaline Phosphatase 101 (39-117) U/L Total Protein 8.5 H (6.5-8.0) g/dL Albumin 3.6 (3.5-5.0) g/dL Urine Color Yellow Urine Appearance Hazy Urine pH 5.5 (5.0-9.0) Ur Specific [place] 1.015 (1.005-1.025) Urine Protein 30 (1+) H (Neg-Trace) mg/dL Urine Glucose (UA) >=1000 H (Negative) mg/dL Urine Ketones Negative (Negative) mg/dL Urine Blood Small (1+) H (Negative) Urine Nitrite Negative (Negative) Ur Leukocyte Esterase Small (1+) H (Negative) Urine RBC 6-10 H (0-2) /HPF Urine WBC >50 H (0-5) /HPF Ur Squamous Epith Cells 0-2 (0-2) /HPF Urine Bacteria None Seen (None Seen) Hyaline Casts 0-2 (0-2) /LPF Urine Yeast Present Independent Interpretation I performed an independent interpretation of an: CT Scan (No overt obstruction noted) Radiology Impression Discussion of test interpretation with radiology: I have reviewed the radiologist's reading. External Record Review External record reviewed: Inpatient record Chronic Conditions Previous history of urinary tract infection Medications Administered Discontinued Medications Generic Name Dose Route Start Last Admin Trade Name Freq PRN Reason Stop Dose Admin Ceftriaxone Sodium 1 gm 02/24/24 18:16 02/24/24 18:40 Ceftriaxone Sodium 1 Gm Vial IVPUSH 02/24/24 18:17 1 gm ONCE ONE Administration Hydromorphone HCl 0.5 mg 02/24/24 19:38 02/24/24 19:44 Hydromorphone Hcl 0.5 Mg/0.5 Ml Syringe IVPUSH 02/24/24 19:39 0.5 mg ONCE ONE Administration Protocol Metronidazole 500 mg in 100 mls @ 100 mls/hr 02/24/24 18:16 02/24/24 19:50 Flagyl IV 02/24/24 19:15 Infused ONCE ONE Infusion Sodium Chloride 1,000 mls @ 999 mls/hr 02/24/24 18:30 02/24/24 20:15 Ns IV 02/24/24 19:30 Infused .Q1H1M GLENN Infusion Discharge Plan Discharge Clinical Impression: Urinary tract infection Patient Disposition: Admitted As Inpatient Prescriptions: No Action (DME) lancets [OneTouch Delica Lancets] 33 gauge misc See Rx Instructions .ROUTE .MEDSUPPLY Qty: 200 10RF Rx Instructions: four times a day amlodipine [Norvasc] 5 mg tablet 5 mg PO BEDTIME gabapentin 300 mg capsule 300 mg PO BEDTIME carvedilol 6.25 mg tablet 6.25 mg PO BIDWM multivitamin Tablet 1 tab PO DAILY sennosides [senna] 8.6 mg tablet 8.6 - 17.2 mg PO BEDTIME PRN (Reason: constipation) docusate sodium 100 mg capsule 100 mg PO BID mirtazapine 15 mg Tablet 15 mg PO BEDTIME polyethylene glycol 3350 [Gavilax] 17 gram/dose powder 17 g PO BEDTIME PRN (Reason: constipation) loratadine 10 mg tablet 10 mg PO Q48H PRN (Reason: allergies) pantoprazole 40 mg tablet,delayed release (DR/EC) 40 mg PO DAILY@0630 cefuroxime axetil 250 mg tablet 250 mg PO Q12H Qty: 14 0RF (DME) pen needle, diabetic [Pentips Pen Needle] 32 gauge x 5/32 needle See Rx Instructions .ROUTE .MEDSUPPLY Qty: 50 Rx Instructions: As directed 4 TIMES A DAY furosemide 20 mg tablet 20 mg PO Q48H doxazosin 4 mg tablet 4 mg PO BEDTIME 90 Days Qty: 90 1RF finasteride 5 mg tablet 5 mg PO DAILY 90 Days Qty: 90 1RF insulin lispro [Humalog KwikPen Insulin] 100 unit/mL insulin pen 4 unit subcut TID Qty: 15 2RF insulin glargine U-300 conc [Toujeo SoloStar U-300 Insulin] 300 unit/mL (1.5 mL) insulin pen 15 unit subcut BEDTIME 30 Days Qty: 4.5 3RF Jardiance 25 mg tablet 25 mg PO DAILY Qty: 90 0RF (DME) OneTouch Verio test strips Strip See Rx Instructions .ROUTE .MEDSUPPLY Qty: 150 11RF Rx Instructions: 4 x/day (DME) blood-glucose meter Misc See Rx Instructions .ROUTE .MEDSUPPLY Qty: 1 0RF Rx Instructions: As directed 4x/day (DME) lancets [OneTouch UltraSoft 2 Lancet] 30 gauge misc See Rx Instructions .ROUTE .MEDSUPPLY Qty: 100 2RF Rx Instructions: use daily As directed to monitor blood sugars (DME) Dexcom G7 Sensor Device See Rx Instructions .ROUTE .MEDSUPPLY Qty: 3 5RF Rx Instructions: Use daily As directed to monitor glucose. change q 10 days glucose [Dex4 Glucose] 4 gram tablet,chewable 16 g PO Q15M PRN (Reason: hypoglycemia) Qty: 100 0RF Rx Instructions: until symptoms of low blood sugar are controlled Print Language: Nigerian
[2024-02-24] MEDS: 0.9 % Sodium Chloride 1,000 ML 999 ML IV (18:40)
[2024-02-24] MEDS: metroNIDAZOLE/NS 500 MG/100 ML PIGGYBACK 100 MG IV (18:40)
[2024-02-24] MEDS: cefTRIAXone sodium 1 GM VIAL IVPUSH (18:40)
[2024-02-24 18:42] VITALS: BP 135/52; PULSE 76; RESP 16; TEMP 37.4; O2SAT 94
[2024-02-24 18:58] LABS: Lactic Acid 1.8 mmol/L (0.5-2.0)
[2024-02-24] MEDS: HYDROmorphone HCl 0.5 MG/0.5 ML SYRINGE IVPUSH (19:44)
[2024-02-24 19:59] VITALS: O2SAT 88; O2SAT 94
[2024-02-24 21:16] LABS: Appearance Urine Hazy; Color Urine Yellow; Glucose Urine UA >=1000 mg/dL (Negative); Leukocyte Esterase Urine Small (1+) (Negative); Nitrite Urine Negative (Negative); PH 5.5 (5.0-9.0); Specific Gravity - Urine 1.015 (1.005-1.025); UMIC TRIGGER UACC YES; Urine Blood Small (1+) (Negative); Urine Ketones Negative (Negative); Urine Protein 30 (1+) mg/dL (Neg-Trace)
--- NOTE | 2024-02-24 21:18 | PM.IMHP ---
History of Present Illness Date of Service: 02/24/24 Attending physician on admission: Helena Ramos Chief Complaint: Abdominal pain Pt is a 78-year-old male with a PMH significant for?HTN, CKD 3, HLD, insulin-dependent type 2 diabetes, nephrolithiasis, CVA with left-sided hemiparesis, neuropathy, and mood disorder who presents to the ED with?left-sided abdominal pain since early in the morning. Pt reports was awoken at 02:00 with severe left-sided, nonradiating abdominal pain. Denies nausea, vomiting diarrhea. Pt initially took some Tylenol which helped alleviate symptoms so that he could go back asleep, though when he woke this morning pain had significantly worsened which prompted his visit to the ED. pt reports polyuria, but denies dysuria or reduced urine stream. Denies fever or chills. Pt reports has felt increased fatigue for the past few months, though denies any acute unexpected weight loss. No chest pain/pressure, palpitations. Denies shortness or breath or difficulty breathing. No cough. In the ED pt with low-grade temp of 99.3 degrees and soft BP as low as 119/49. Pt then desatted to 88% after Dilaudid. Labs were significant for leukocytosis of 19.7, sodium 134, BUN 28, and creatinine 2.47. UA concerning for acute UTI with leukocyte esterase and wbc's greater than 50. CT?of abdomen and pelvis found persistent left perinephric and periureteral stranding moderate left hydroureter nephrosis, concerning for ureteral stricture or malignancy. Pt was treated with IVF, hydromorphone, metronidazole, and ceftriaxone. Pt will be admitted to the hospital for treatment and further evaluation of acute pyelonephritis with concerns for ureteral stricture versus malignancy versus upper tract infection. Review of Systems Review of Systems: Negative except for that which is stated in the [facility] Medical History NSTEMI (non-ST elevated myocardial infarction) Sepsis Pneumonia Type 2 diabetes mellitus with diabetic polyneuropathy Diverticulosis Erectile dysfunction BPH (benign prostatic hyperplasia) Carpal tunnel syndrome Cataracts, bilateral GERD (gastroesophageal reflux disease) Kidney stones Type 2 diabetes mellitus with chronic kidney disease Chronic kidney disease, stage 3 Type 2 diabetes mellitus with hyperglycemia Essential hypertension Hyperlipidemia LDL goal <70 Family History Father No problems noted. 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) Alcohol intake: never Patient Tobacco Use Status: Never used Tobacco Advance Directives: Yes Advance Directives on File: Yes Advance Directives Date on File: 04/11/23 Do you have a plan to hurt others: No Plan service: No Current occupational status: retired [employer] Allergies Allergy/AdvReac Type Severity Reaction Status Date / Time No Known Allergies Allergy Mild N/A Verified 02/24/24 15:09 Active Medications: Current Medications Acetaminophen (Acetaminophen 325 Mg Tablet) 650 mg PO Q6H PRN PRN Reason: Pain, Mild 1-3,fever,headache Calcium Carbonate (Calcium Carbonate 750 Mg Tab.Chew) 750 mg PO Q4H PRN PRN Reason: Heartburn Ceftriaxone Sodium (Ceftriaxone Sodium 1 Gm Vial) 1 gm IVPUSH Q24H GLENN Enoxaparin Sodium (Enoxaparin Sodium 30 Mg/0.3 Ml Syringe) 30 mg SUBCUT Q24H GLENN Glucose (Glucose Gel 15 Gm Gel..Gram.) 15 gm PO Q15M PRN; Protocol PRN Reason: per Hypoglycemia Standing Ord. Hydromorphone HCl (Hydromorphone Hcl 0.5 Mg/0.5 Ml Syringe) 0.5 mg IVPUSH Q4H PRN; Protocol PRN Reason: Pain, Severe (Pain Scale 7-10) Dextrose (D10) 250 mls @ 750 mls/hr IV Q15M PRN; Protocol PRN Reason: per Hypoglycemia Standing Ord. Insulin Glargine (Insulin Glargine,Hum.Rec.Anlog 100 Unit/Ml 10 Ml Vial) 10 unit SUBCUT ONCE ONE Stop: 02/24/24 21:17 Insulin Human Lispro (Insulin Lispro 100 Unit/Ml 3 Ml Vial) 0 unit SUBCUT QIDACHS GLENN; Protocol Magnesium Hydroxide (Milk Of Magnesia 30 Ml Oral.Susp) 30 ml PO DAILY PRN PRN Reason: Constipation Melatonin (Melatonin 3 Mg Tablet) 6 mg PO BEDTIME PRN PRN Reason: Insomnia Ondansetron HCl (Ondansetron Hcl 4 Mg/2 Ml Vial) 4 mg IVPUSH Q8H PRN PRN Reason: Nausea and Vomiting Sodium Chloride (0.9 % Sodium Chloride Flush 3 Ml Syringe) [facility] Medications ?Medication ?Instructions ?Recorded ?Confirmed ?Last Taken ?Type furosemide 20 mg tablet 20 mg PO Q48H 03/29/22 02/18/24 Unknown History pen needle, diabetic 32 gauge x #50 ea 03/29/22 02/18/24 Unknown History (Pentips Pen Needle) amlodipine 5 mg tablet (Norvasc) 5 mg PO BEDTIME 04/10/23 02/18/24 Unknown History gabapentin 300 mg capsule 300 mg PO BEDTIME 04/10/23 02/18/24 Unknown History carvedilol 6.25 mg tablet 6.25 mg PO BIDWM 12/19/23 02/18/24 Unknown History docusate sodium 100 mg capsule 100 mg PO BID 12/19/23 02/18/24 Unknown History loratadine 10 mg tablet 10 mg PO Q48H PRN allergies 12/19/23 02/18/24 Unknown History mirtazapine 15 mg tablet 15 mg PO BEDTIME 12/19/23 02/18/24 Unknown History multivitamin 1 tab PO DAILY 12/19/23 02/18/24 Unknown History pantoprazole 40 mg tablet,delayed 40 mg PO DAILY@0630 12/19/23 02/18/24 Unknown History release polyethylene glycol 3350 17 17 g PO BEDTIME PRN constipation 12/19/23 02/18/24 Unknown History gram/dose oral powder (Gavilax) sennosides 8.6 mg tablet (senna) 8.6 - 17.2 mg PO BEDTIME PRN 12/19/23 02/18/24 Unknown History constipation Physical Exam Vital Signs and Narrative: Vital Signs: Last Vital Signs Temp 99.3 F 02/24/24 18:42 Pulse 76 02/24/24 18:42 Resp 16 02/24/24 18:42 BP 135/52 L 02/24/24 18:42 Pulse Ox 94 02/24/24 19:59 O2 Del Method Nasal Cannula 02/24/24 19:59 O2 Flow Rate 2 02/24/24 19:59 BMI result Body Mass Index 20.8 General: AOx3, no acute distress Resp: CTA bilaterally CVS: S1, S2, RRR GI: +BS, no distention, no abdominal tenderness appreciated Back: No CVA tenderness Skin: Warm, dry Neuro: Cranial nerves II-XII grossly intact bilaterally. Motor grossly intact bilaterally Extremities: No edema Psych: Appropriate affect Results Labs 02/24/24 15:16 02/24/24 15:16 Labs: Laboratory Results - last 24 hr 02/24/24 02/24/24 02/24/24 15:16 18:36 20:58 MCV 80.1 MCH 26.1 L MCHC 32.5 RDW 15.9 Plt Count 316 D MPV 9.0 L Immature Gran % (Auto) 0.5 H Neut % (Auto) 87.5 H Lymph % (Auto) 4.4 L [place] % (Auto) 7.3 Eos % (Auto) 0.1 Baso % (Auto) 0.2 Lymph # (Auto) 0.9 L [place] # (Auto) 1.4 H Eos # (Auto) 0.0 Baso # (Auto) 0.0 Abs Immat Gran (auto) 0.09 H Absolute Neuts (auto) 17.3 H Absolute Nucleated RBC 0.000 Nucleated RBC % (auto) 0.0 Anion Gap 16 Estim Creat Clear Calc 22.6 Estimated GFR 26 Random Glucose 232 H Lactic Acid 1.8 Calcium 9.3 Total Bilirubin 0.6 AST 13 ALT < 6 Alkaline Phosphatase 101 Total Protein 8.5 H Albumin 3.6 Urine Color Yellow Urine Appearance Hazy Urine pH 5.5 Ur Specific [place] 1.015 Urine Protein 30 (1+) H Urine Glucose (UA) >=1000 H Urine Ketones Negative Urine Blood Small (1+) H Urine Nitrite Negative Ur Leukocyte Esterase Small (1+) H Assessment and Plan (1) Pyelonephritis: Status: Acute Plan Pt is a 78-year-old male with a PMH significant for?HTN, CKD 3, HLD, insulin-dependent type 2 diabetes, nephrolithiasis, CVA with left-sided hemiparesis, neuropathy, and mood disorder who presents to the ED with?left-sided abdominal pain since early in the morning. Pt will be admitted to the hospital for treatment and further evaluation of acute pyelonephritis with concerns for ureteral stricture versus malignancy. Acute pyelonephritis UA consistent with UTI, pt will polyuria, CTA showing perinephric periureteral stranding with moderate hydroureteronephrosis No sepsis: Leukocytosis, but no fever, tachycardia, or tachypnea; lactic acid WNL at 1.8 Pt given IVF and started on broad-spectrum antibiotics in the ED Will treat with ceftriaxone, started 02/23/2023 Analgesics for pain management Follow urine cultures Question of ureteral stricture CT showing persistent left perinephric and periureteral stranding with moderate left hydroureteronephrosis Concerning for ureteral stricture vs malignancy vs upper tract infection Treat pyelonephritis as above Urology consult for possible cystoscopy [facility] on CKD Patient's creatinine 2.47, elevated from 1.99 on 01/23/2024 Likely in the setting of above Pt received IVF in ED Treat as above Follow creatinine Acute intermittent hypoxia Pt noted to desat to 88% on RA Likely secondary to Dilaudid administration Pt denies pulmonary symptoms: No SOB, cough, difficulty breathing Titrate supplemental O2 >92, wean as tolerated Insulin-dependent type 2 diabetes Sliding-scale insulin, Lantus Diabetic diet HTN BP slightly soft Hold amlodipine, furosemide Continue carvedilol BPH Continue finasteride GERD PPI Mood disorder Continue mirtazapine Full Code Attending:?Dr. Ramos DVT Prophylaxis: Lovenox Pt will require a hospitalization of at least two nights for treatment of?acute pyelonephritis with concerns ureteral stricture versus malignancy. Pt will require hospital level care for administration of IV antibiotics and specialist consultation with Urology for possible inpatient cystoscopy. Quality Stroke Does the patient have a stroke diagnosis?: No VTE Prior VTE?: No VTE Risk Level:: Medical - moderate - high VTE Device Contraindication: Treatment Not Indicated VTE Drug Contraindication: N/A - Med Ordered
[2024-02-24 21:33] LABS: Bacteria Urine None Seen (None Seen); Hyaline Casts Urine 0-2 /LPF (0-2); Squamous Epithelial Cell Urine 0-2 /HPF (0-2); UACC Culture Trigger YES; WBC Urine >50 /HPF (0-5)
[2024-02-24 22:36] LABS: Glucose, Whole Blood 258 mg/dL (60-115)
[2024-02-24] MEDS: Insulin Glargine,Hum.rec.anlog 100 UNIT/ML 10 ML VIAL 10 UNIT SUBCUT (22:45)
[2024-02-24] MEDS: Enoxaparin Sodium 30 MG/0.3 ML SYRINGE SUBCUT (22:46)
[2024-02-24 22:49] VITALS: BP 122/54; PULSE 72; RESP 16; TEMP 37.3; O2SAT 96
[2024-02-25 04:00] VITALS: BP 101/49; PULSE 60; RESP 16; TEMP 37.4; O2SAT 96
[2024-02-25 05:41] LABS: MANUAL DIFF FLAG NO
[2024-02-25 05:44] LABS: Basophils Absolute Auto 0.1 X10*3/uL (0.0-0.2); Basophils Percent Auto 0.2 % (0-2); Hematocrit 33.7 % (42.0-52.0); Hemoglobin 11.1 g/dl (14.0-18.0); Imm Gran Abs Auto 0.13 X10*3/uL (0.00-0.03); Imm Gran Pct Auto 0.6 % (0.0-0.4); Lymphocytes Absolute Auto 1.4 X10*3/uL (1.2-4.9); Lymphocytes Percent Auto 5.9 % (20-40); Mean Corpuscular HGB Conc 32.9 g/dl (31.0-36.0); Mean Corpuscular Hemoglobin 26.6 pg (27.0-33.0); Mean Corpuscular Volume 80.8 fL (80.0-98.0); Mean Platelet Volume 9.6 fL (9.4-12.4); Monocytes Absolute Auto 1.5 X10*3/uL (0.1-1.2); Monocytes Percent Auto 6.4 % (2-11); Neutrophils Absolute Auto 19.8 x10*3/uL (2.0-8.3); Neutrophils Percent Auto 86.9 % (45-73); Platelet Count 264 X10*3/uL (160-400); Red Blood Count 4.17 X10*6/uL (4.60-5.80); White Blood Count 22.8 X10*3/uL (4.8-10.8)
[2024-02-25 05:59] LABS: Anion Gap 14 (12-20); Blood Urea Nitrogen 30 mg/dL (9-16); Calcium 8.9 mg/dL (8.4-10.2); Carbon Dioxide 15 mmol/L (22-29); Chloride 110 mmol/L (96-108); Creatinine Clr Calc Pharmacy 21.8; Estimated Glomerular Filt Rate 24; Glucose Random 267 mg/dL (60-115); Potassium 4.4 mmol/L (3.3-5.1); Sodium 135 mmol/L (135-145)
[2024-02-25 07:30] LABS: Glucose, Whole Blood 236 mg/dL (60-115)
[2024-02-25] MEDS: Insulin Lispro 100 UNIT/ML 3 ML VIAL SUBCUT ×4 (07:46→20:25)
[2024-02-25] MEDS: 0.9 % Sodium Chloride Flush 3 ML SYRINGE IVFLUSH (07:46)
[2024-02-25 08:30] VITALS: BP 107/53; PULSE 67; RESP 16; TEMP 36.2; O2SAT 97
[2024-02-25] MEDS: Acetaminophen 325 MG TABLET 650 MG PO (09:00)
[2024-02-25 09:21] VITALS: BMI 20.7
[2024-02-25 10:29] VITALS: BMI 21.3
--- NOTE | 2024-02-25 10:38 | PHA.MEDREC ---
Addendum entered by Isabel Harper [facility] 02/25/24 11:03: REVIEWED BY PHARMACIST Original Note: Pharmacy Consult ? Medication Reconciliation Pharmacy has completed the medication reconciliation. Spoke to patient through logging equipment mechanic service (Natacha) to confirm med list. Patient had a med Box list with him. . MedBox only had a few medications on it, when asked about the medications not on list he said I only take the what is on that list ).patient no longer takes Docusate sod 100 mg, Doxazosin 4 mg, Furosemide 20 mg, Loratadine 10 mg, Mirtazapine 15 mg, Pantoprazole 40 mg, Gavilax powder, and Senna 8.6 mg. Patient confirmed Toujeo SoloStar U-300 15 units at bedtime and Insulin Lispro 100 units/ml 4 units tid per sliding scale.
[2024-02-25 11:22] LABS: Glucose, Whole Blood 262 mg/dL (60-115)
[2024-02-25] MEDS: Empagliflozin 25 MG TABLET PO (11:22)
[2024-02-25] MEDS: Finasteride 5 MG TABLET PO (11:22)
--- NOTE | 2024-02-25 11:24 | P.PNIM_ITS ---
Subjective Subjective Date of Service: 02/25/24 Interval History: Notes some improvement since admission. Pain control adequate Review of Systems Denies chest pain Denies shortness of breath Denies nausea vomiting diarrhea Denies fever chills Physical Exam 2 Vital Signs: Vital Signs: Last Vital Signs Temp 97.2 F 02/25/24 08:30 Pulse 67 02/25/24 08:30 Resp 16 02/25/24 08:30 BP 107/53 L 02/25/24 08:30 Pulse Ox 97 02/25/24 08:30 O2 Del Method Nasal Cannula 02/25/24 08:30 O2 Flow Rate 2 02/25/24 08:30 BMI result Body Mass Index 21.3 Const: Other: Awake alert no acute distress Resp: Other: Clear to auscultation bilaterally no rales rhonchi or wheezes Cardio: Other: No S4; positive S1-S2; no S3 murmurs rubs or gallops GI: Other: Soft nontender nondistended normoactive bowel sounds Extrem: Other: No edema bilaterally Objective Data Active Medications Acetaminophen (Acetaminophen 325 Mg Tablet) 650 mg PO Q6H PRN PRN Reason: Pain, Mild 1-3,fever,headache Last Admin: 02/25/24 09:00 Dose: 650 mg Documented By: JONATHON Amlodipine Besylate (Amlodipine Besylate 5 Mg Tablet) 5 mg PO BEDTIME [facility]; Protocol Calcium Carbonate (Calcium Carbonate 750 Mg Tab.Chew) 750 mg PO Q4H PRN PRN Reason: Heartburn Carvedilol (Carvedilol 6.25 Mg Tablet) 6.25 mg PO BIDWM [facility]; Protocol Ceftriaxone Sodium (Ceftriaxone Sodium 1 Gm Vial) 1 gm IVPUSH Q24H [facility] Empagliflozin (Empagliflozin 25 Mg Tablet) 25 mg PO DAILY [facility] Last Admin: 02/25/24 11:22 Dose: 25 mg Documented By: JONATHON Enoxaparin Sodium (Enoxaparin Sodium 30 Mg/0.3 Ml Syringe) 30 mg SUBCUT Q24H [facility] Last Admin: 02/24/24 22:46 Dose: 30 mg Documented By: KYAW Finasteride (Finasteride 5 Mg Tablet) 5 mg PO DAILY [facility] Last Admin: 02/25/24 11:22 Dose: 5 mg Documented By: JONATHON Gabapentin (Gabapentin 300 Mg Capsule) 300 mg PO BEDTIME [facility] Glucose (Glucose Gel 15 Gm Gel..Gram.) 15 gm PO Q15M PRN; Protocol PRN Reason: per Hypoglycemia Standing Ord. Hydromorphone HCl (Hydromorphone Hcl 0.5 Mg/0.5 Ml Syringe) 0.5 mg IVPUSH Q4H PRN; Protocol PRN Reason: Pain, Severe (Pain Scale 7-10) Dextrose (D10) 250 mls @ 750 mls/hr IV Q15M PRN; Protocol PRN Reason: per Hypoglycemia Standing Ord. Insulin Glargine (Insulin Glargine,Hum.Rec.Anlog 100 Unit/Ml 10 Ml Vial) 12 unit SUBCUT BEDTIME [facility] Insulin Human Lispro (Insulin Lispro 100 Unit/Ml 3 Ml Vial) 0 unit SUBCUT QIDACHS [facility]; Protocol Last Admin: 02/25/24 07:46 Dose: 4 unit Documented By: SULAIMAN Magnesium Hydroxide (Milk Of Magnesia 30 Ml Oral.Susp) 30 ml PO DAILY PRN PRN Reason: Constipation Melatonin (Melatonin 3 Mg Tablet) 6 mg PO BEDTIME PRN PRN Reason: Insomnia Multivitamins/Vitamin C (Multivitamin Tablet) 1 tab PO DAILY [facility] Ondansetron HCl (Ondansetron Hcl 4 Mg/2 Ml Vial) 4 mg IVPUSH Q8H PRN PRN Reason: Nausea and Vomiting Sodium Chloride (0.9 % Sodium Chloride Flush 3 Ml Syringe) 3 ml IVFLUSH QSHIFT [facility] Last Admin: 02/25/24 07:46 Dose: 3 ml Documented By: SULAIMAN Labs 02/25/24 05:26 02/25/24 05:26 Labs: Laboratory Results - last 24 hr 02/24/24 02/24/24 02/24/24 15:16 18:36 20:58 MCV 80.1 MCH 26.1 L MCHC 32.5 RDW 15.9 Plt Count 316 D MPV 9.0 L Immature Gran % (Auto) 0.5 H Neut % (Auto) 87.5 H Lymph % (Auto) 4.4 L [place] % (Auto) 7.3 Eos % (Auto) 0.1 Baso % (Auto) 0.2 Lymph # (Auto) 0.9 L [place] # (Auto) 1.4 H Eos # (Auto) 0.0 Baso # (Auto) 0.0 Abs Immat Gran (auto) 0.09 H Absolute Neuts (auto) 17.3 H Absolute Nucleated RBC 0.000 Nucleated RBC % (auto) 0.0 Anion Gap 16 Estim Creat Clear Calc 22.6 Estimated GFR 26 POC Glucose Random Glucose 232 H Lactic Acid 1.8 Calcium 9.3 Total Bilirubin 0.6 AST 13 ALT < 6 Alkaline Phosphatase 101 Total Protein 8.5 H Albumin 3.6 Urine Color Yellow Urine Appearance Hazy Urine pH 5.5 Ur Specific [place] 1.015 Urine Protein 30 (1+) H Urine Glucose (UA) >=1000 H Urine Ketones Negative Urine Blood Small (1+) H Urine Nitrite Negative Ur Leukocyte Esterase Small (1+) H Urine RBC 6-10 H Urine WBC >50 H Ur Squamous Epith Cells 0-2 Urine Bacteria None Seen Hyaline Casts 0-2 Urine Yeast Present 02/24/24 02/25/24 02/25/24 22:32 05:26 07:26 MCV 80.8 MCH 26.6 L MCHC 32.9 RDW 16.0 Plt Count 264 MPV 9.6 Immature Gran % (Auto) 0.6 H Neut % (Auto) 86.9 H Lymph % (Auto) 5.9 L [place] % (Auto) 6.4 Eos % (Auto) 0.0 Baso % (Auto) 0.2 Lymph # (Auto) 1.4 [place] # (Auto) 1.5 H Eos # (Auto) 0.0 Baso # (Auto) 0.1 Abs Immat Gran (auto) 0.13 H Absolute Neuts (auto) 19.8 H Absolute Nucleated RBC 0.000 Nucleated RBC % (auto) 0.0 Anion Gap 14 Estim Creat Clear Calc 21.8 Estimated GFR 24 POC Glucose 258 H 236 H Random Glucose 267 H Lactic Acid Calcium 8.9 Total Bilirubin AST ALT Alkaline Phosphatase Total Protein Albumin Urine Color Urine Appearance Urine pH Ur Specific [place] Urine Protein Urine Glucose (UA) Urine Ketones Urine Blood Urine Nitrite Ur Leukocyte Esterase Urine RBC Urine WBC Ur Squamous Epith Cells Urine Bacteria Hyaline Casts Urine Yeast 02/25/24 11:19 MCV MCH MCHC RDW Plt Count MPV Immature Gran % (Auto) Neut % (Auto) Lymph % (Auto) [place] % (Auto) Eos % (Auto) Baso % (Auto) Lymph # (Auto) [place] # (Auto) Eos # (Auto) Baso # (Auto) Abs Immat Gran (auto) Absolute Neuts (auto) Absolute Nucleated RBC Nucleated RBC % (auto) Anion Gap Estim Creat Clear Calc Estimated GFR POC Glucose 262 H Random Glucose Lactic Acid Calcium Total Bilirubin AST ALT Alkaline Phosphatase Total Protein Albumin Urine Color Urine Appearance Urine pH Ur Specific [place] Urine Protein Urine Glucose (UA) Urine Ketones Urine Blood Urine Nitrite Ur Leukocyte Esterase Urine RBC Urine WBC Ur Squamous Epith Cells Urine Bacteria Hyaline Casts Urine Yeast Microbiology Microbiology Results: Microbiology 02/24/24 21:33 Urine Culture - Preliminary Urine clean catch - Clean Catch Midstream No growth to date. Assessment and Plan (1) Pyelonephritis: Status: Acute (2) Acute UTI: Status: Acute (3) Acute kidney injury superimposed on chronic kidney disease: Status: Acute (4) Chronic kidney disease, stage 3: Status: Acute Plan Pt is a 78-year-old male with a PMH significant for?HTN, CKD 3, HLD, insulin- dependent type 2 diabetes, nephrolithiasis, CVA with left-sided hemiparesis, neuropathy, and mood disorder who presents to the ED with?left-sided abdominal pain since early in the morning. Pt will be admitted to the hospital for treatment and further evaluation of acute pyelonephritis with concerns for ureteral stricture versus malignancy. 1.Acute pyelonephritis -Ceftriaxone (2) -changes based on urine culture -question of ureteral stricture... Await Urology input 2.[place] on CKD -now with the medical folic acid doses -bicarb 650 t.i.d. -lactated Ringer's 100 an hour -follow renals/divalents 3.Acute intermittent hypoxia -continues with O2 requirement -check portable chest x-rays -titrate supplemental O2 >92, wean as tolerated 4.Insulin-dependent type 2 diabetes -acceptable control on current therapies -lispro correctional scale -continue Lantus at outpatient dosing along with orals -adjust as indicated Full Code Lovenox Patient will require ongoing hospitalization for IV antibiotics to treat pyelonephritis along with specialty consultation Quality Stroke Does the patient have a stroke diagnosis?: No VTE Prior VTE?: No VTE Risk Level:: Medical - moderate - high VTE Device Contraindication: Treatment Not Indicated VTE Drug Contraindication: N/A - Med Ordered
[2024-02-25] MEDS: Multivitamin TABLET 1 TAB PO (11:31)
[2024-02-25 11:35] VITALS: BP 107/53; PULSE 67; O2SAT 97
[2024-02-25] MEDS: Lactated Ringers 1,000 ML 100 ML IVCONT ×2 (11:50→22:03)
--- NOTE | 2024-02-25 12:44 | MHC.CM.PN ---
PT WILL BE GOING TO [facility]
[2024-02-25] MEDS: Sodium Bicarbonate 650 MG TABLET PO ×2 (14:56→20:26)
[2024-02-25 14:58] VITALS: BP 120/58; PULSE 69; RESP 18; TEMP 36.4; O2SAT 99
[2024-02-25 16:17] LABS: Glucose, Whole Blood 192 mg/dL (60-115)
[2024-02-25] MEDS: carvediloL 6.25 MG TABLET PO (16:59)
[2024-02-25] MEDS: cefTRIAXone sodium 1 GM VIAL IVPUSH (17:53)
[2024-02-25 19:33] VITALS: BP 118/62; PULSE 76; RESP 18; TEMP 37.2; O2SAT 95
[2024-02-25 19:33] LABS: Glucose, Whole Blood 226 mg/dL (60-115)
[2024-02-25] MEDS: Insulin Glargine,Hum.rec.anlog 100 UNIT/ML 10 ML VIAL 12 UNIT SUBCUT (20:25)
[2024-02-25 20:26] VITALS: BP 118/62
[2024-02-25] MEDS: amLODIPine Besylate 5 MG TABLET PO (20:26)
[2024-02-25] MEDS: Gabapentin 300 MG CAPSULE PO (20:26)
[2024-02-25] MEDS: Enoxaparin Sodium 30 MG/0.3 ML SYRINGE SUBCUT (22:01)
[2024-02-26 04:00] VITALS: BP 118/66; PULSE 80; RESP 18; TEMP 37.4; O2SAT 95
[2024-02-26 06:04] LABS: MANUAL DIFF FLAG NO
[2024-02-26 06:23] LABS: Basophils Percent Auto 0.2 % (0-2); Eosinophils Absolute Auto 0.2 X10*3/uL (0.0-0.4); Eosinophils Percent Auto 1.1 % (0-4); Hematocrit 29.7 % (42.0-52.0); Hemoglobin 9.6 g/dl (14.0-18.0); Imm Gran Pct Auto 0.6 % (0.0-0.4); Lymphocytes Absolute Auto 1.5 X10*3/uL (1.2-4.9); Lymphocytes Percent Auto 9.5 % (20-40); Mean Corpuscular HGB Conc 32.3 g/dl (31.0-36.0); Mean Corpuscular Hemoglobin 26.2 pg (27.0-33.0); Mean Corpuscular Volume 80.9 fL (80.0-98.0); Mean Platelet Volume 9.9 fL (9.4-12.4); Monocytes Percent Auto 6.1 % (2-11); Neutrophils Absolute Auto 13.1 x10*3/uL (2.0-8.3); Neutrophils Percent Auto 82.5 % (45-73); Platelet Count 248 X10*3/uL (160-400); Red Blood Count 3.67 X10*6/uL (4.60-5.80); Red Cell Distribution Width 16.5 % (11.0-16.0); White Blood Count 15.9 X10*3/uL (4.8-10.8)
[2024-02-26 06:30] LABS: Alanine Aminotransferase < 6 U/L (0-40); Albumin Level 2.7 g/dL (3.5-5.0); Alkaline Phosphatase 78 U/L (39-117); Anion Gap 13 (12-20); Aspartate Amino Transferase 10 U/L (5-37); Bilirubin Total 0.3 mg/dL (0.0-1.0); Blood Urea Nitrogen 33 mg/dL (9-16); Calcium 8.6 mg/dL (8.4-10.2); Carbon Dioxide 17 mmol/L (22-29); Chloride 110 mmol/L (96-108); Creatinine Clr Calc Pharmacy 22.8; Estimated Glomerular Filt Rate 26; Glucose Fasting 164 mg/dL (60-99); Potassium 4.1 mmol/L (3.3-5.1); Sodium 136 mmol/L (135-145); Total Protein 6.6 g/dL (6.5-8.0)
[2024-02-26 07:22] VITALS: BP 108/52; PULSE 67; RESP 16; TEMP 36.1; O2SAT 94
[2024-02-26 07:30] LABS: Glucose, Whole Blood 155 mg/dL (60-115)
[2024-02-26] MEDS: Insulin Lispro 100 UNIT/ML 3 ML VIAL SUBCUT ×2 (07:44→20:39)
[2024-02-26] MEDS: carvediloL 6.25 MG TABLET PO ×2 (07:44→17:09)
[2024-02-26] MEDS: Finasteride 5 MG TABLET PO (07:44)
[2024-02-26] MEDS: Multivitamin TABLET 1 TAB PO (07:45)
[2024-02-26] MEDS: Empagliflozin 25 MG TABLET PO (07:45)
[2024-02-26] MEDS: Sodium Bicarbonate 650 MG TABLET PO ×3 (07:45→20:38)
[2024-02-26] MEDS: 0.9 % Sodium Chloride Flush 3 ML SYRINGE IVFLUSH ×2 (07:48→15:27)
[2024-02-26] MEDS: Lactated Ringers 1,000 ML 100 ML IVCONT (09:15)
[2024-02-26 09:17] VITALS: BP 108/52; PULSE 67; O2SAT 94
[2024-02-26 11:10] LABS: Glucose, Whole Blood 243 mg/dL (60-115)
--- NOTE | 2024-02-26 14:35 | HO.PM.IMPN ---
Subjective Subjective Date of Service: 02/26/24 Interval History: No acute issues overnight Review of Systems Denies chest pain Denies shortness of breath Denies nausea vomiting diarrhea Denies fever chills Physical Exam Vital Signs: Vital Signs: Last Vital Signs Temp 97.0 F 02/26/24 07:22 Pulse 67 02/26/24 09:17 Resp 16 02/26/24 07:22 BP 108/52 L 02/26/24 09:17 Pulse Ox 94 02/26/24 09:17 O2 Del Method Room Air 02/26/24 07:22 O2 Flow Rate 2 02/25/24 08:30 BMI result Body Mass Index 21.3 Const: Other: Awake alert no acute distress Resp: Other: Clear to auscultation bilaterally no rales rhonchi or wheezes Cardio: Other: No S4; positive S1-S2; no S3 murmurs rubs or gallops GI: Other: Soft nontender nondistended normoactive bowel sounds Extrem: Other: No edema bilaterally Objective Data Active Medications Acetaminophen (Acetaminophen 325 Mg Tablet) 650 mg PO Q6H PRN PRN Reason: Pain, Mild 1-3,fever,headache Last Admin: 02/25/24 09:00 Dose: 650 mg Documented By: JONATHON Amlodipine Besylate (Amlodipine Besylate 5 Mg Tablet) 5 mg PO BEDTIME [facility]; Protocol Last Admin: 02/25/24 20:26 Dose: 5 mg Documented By: CASTILJanice Calcium Carbonate (Calcium Carbonate 750 Mg Tab.Chew) 750 mg PO Q4H PRN PRN Reason: Heartburn Carvedilol (Carvedilol 6.25 Mg Tablet) 6.25 mg PO BIDWM [facility]; Protocol Last Admin: 02/26/24 07:44 Dose: 6.25 mg Documented By: SARIKA Ceftriaxone Sodium (Ceftriaxone Sodium 1 Gm Vial) 1 gm IVPUSH Q24H [facility] Last Admin: 02/25/24 17:53 Dose: 1 gm Documented By: JONATHON Empagliflozin (Empagliflozin 25 Mg Tablet) 25 mg PO DAILY [facility] Last Admin: 02/26/24 07:45 Dose: 25 mg Documented By: SARIKA Enoxaparin Sodium (Enoxaparin Sodium 30 Mg/0.3 Ml Syringe) 30 mg SUBCUT Q24H [facility] Last Admin: 02/25/24 22:01 Dose: 30 mg Documented By: VIKTOR Finasteride (Finasteride 5 Mg Tablet) 5 mg PO DAILY [facility] Last Admin: 02/26/24 07:44 Dose: 5 mg Documented By: SARIKA Gabapentin (Gabapentin 300 Mg Capsule) 300 mg PO BEDTIME [facility] Last Admin: 02/25/24 20:26 Dose: 300 mg Documented By: VIKTOR Glucose (Glucose Gel 15 Gm Gel..Gram.) 15 gm PO Q15M PRN; Protocol PRN Reason: per Hypoglycemia Standing Ord. Hydromorphone HCl (Hydromorphone Hcl 0.5 Mg/0.5 Ml Syringe) 0.5 mg IVPUSH Q4H PRN; Protocol PRN Reason: Pain, Severe (Pain Scale 7-10) Dextrose (D10) 250 mls @ 750 mls/hr IV Q15M PRN; Protocol PRN Reason: per Hypoglycemia Standing Ord. Lactated Ringer's (Lr) 1,000 mls @ 100 mls/hr IVCONT .Q10H [facility] Last Admin: 02/26/24 09:15 Dose: 100 mls/hr Documented By: SARIKA Insulin Glargine (Insulin Glargine,Hum.Rec.Anlog 100 Unit/Ml 10 Ml Vial) 12 unit SUBCUT BEDTIME [facility] Last Admin: 02/25/24 20:25 Dose: 12 unit Documented By: VIKTOR Insulin Human Lispro (Insulin Lispro 100 Unit/Ml 3 Ml Vial) 0 unit SUBCUT QIDACHS [facility]; Protocol Last Admin: 02/26/24 11:37 Dose: Not Given Documented By: SARIKA Non-Admin Reason: NPO Magnesium Hydroxide (Milk Of Magnesia 30 Ml Oral.Susp) 30 ml PO DAILY PRN PRN Reason: Constipation Melatonin (Melatonin 3 Mg Tablet) 6 mg PO BEDTIME PRN PRN Reason: Insomnia Multivitamins/Vitamin C (Multivitamin Tablet) 1 tab PO DAILY [facility] Last Admin: 02/26/24 07:45 Dose: 1 tab Documented By: SARIKA Ondansetron HCl (Ondansetron Hcl 4 Mg/2 Ml Vial) 4 mg IVPUSH Q8H PRN PRN Reason: Nausea and Vomiting Sodium Bicarbonate (Sodium Bicarbonate 650 Mg Tablet) 650 mg PO TID [facility] Last Admin: 02/26/24 14:12 Dose: 650 mg Documented By: SARIKA Sodium Chloride (0.9 % Sodium Chloride Flush 3 Ml Syringe) [facility] Last Admin: 02/26/24 07:48 Dose: 3 ml Documented By: SARIKA Labs 02/26/24 05:56 02/26/24 05:56 Labs: Laboratory Results - last 24 hr 02/25/24 02/25/24 02/26/24 16:07 19:03 05:56 MCV 80.9 MCH 26.2 L MCHC 32.3 RDW 16.5 H Plt Count 248 MPV 9.9 Immature Gran % (Auto) 0.6 H Neut % (Auto) 82.5 H Lymph % (Auto) 9.5 L [place] % (Auto) 6.1 Eos % (Auto) 1.1 Baso % (Auto) 0.2 Lymph # (Auto) 1.5 [place] # (Auto) 1.0 Eos # (Auto) 0.2 Baso # (Auto) 0.0 Abs Immat Gran (auto) 0.10 H Absolute Neuts (auto) 13.1 H Absolute Nucleated RBC 0.000 Nucleated RBC % (auto) 0.0 Anion Gap 13 Estim Creat Clear Calc 22.8 Estimated GFR 26 POC Glucose 192 H 226 H Fasting Glucose 164 H Calcium 8.6 Total Bilirubin 0.3 AST 10 ALT < 6 Alkaline Phosphatase 78 Total Protein 6.6 Albumin 2.7 L 02/26/24 02/26/24 07:26 11:03 MCV MCH MCHC RDW Plt Count MPV Immature Gran % (Auto) Neut % (Auto) Lymph % (Auto) [place] % (Auto) Eos % (Auto) Baso % (Auto) Lymph # (Auto) [place] # (Auto) Eos # (Auto) Baso # (Auto) Abs Immat Gran (auto) Absolute Neuts (auto) Absolute Nucleated RBC Nucleated RBC % (auto) Anion Gap Estim Creat Clear Calc Estimated GFR POC Glucose 155 H 243 H Fasting Glucose Calcium Total Bilirubin AST ALT Alkaline Phosphatase Total Protein Albumin Microbiology Microbiology Results: Microbiology 02/24/24 21:33 Urine Culture - Preliminary Urine clean catch - Clean Catch Midstream Yeast 02/24/24 18:35 Blood Culture - Preliminary Blood - Venous No growth after 24 hours. 02/24/24 18:36 Blood Culture - Preliminary Blood - Venous No growth after 24 hours. Assessment and Plan (1) Pyelonephritis: Status: Acute (2) Acute kidney injury superimposed on chronic kidney disease: Status: Acute (3) Type 2 diabetes mellitus with diabetic polyneuropathy: Status: Acute Plan Pt is a 78-year-old male with a PMH significant for?HTN, CKD 3, HLD, insulin-dependent type 2 diabetes, nephrolithiasis, CVA with left-sided hemiparesis, neuropathy, and mood disorder who presents to the ED with?left-sided abdominal pain since early in the morning. Pt will be admitted to the hospital for treatment and further evaluation of acute pyelonephritis with concerns for ureteral stricture versus malignancy. 1.Acute pyelonephritis -Ceftriaxone (3) -cultures demonstrate yeast. Await Urology input -question of ureteral stricture... Await Urology input 2.[place] on CKD -now with the medical folic acid doses -bicarb 650 t.i.d....good response -lactated Ringer's 100 an hour -follow renals/divalents 3.Acute intermittent hypoxia -continues with O2 requirement -portable chest x-rays unremarkable -titrate supplemental O2 >92, wean as tolerated 4.Insulin-dependent type 2 diabetes -acceptable control on current therapies -lispro correctional scale -continue Lantus at outpatient dosing along with orals -adjust as indicated Full Code Lovenox Patient will require ongoing hospitalization for IV antibiotics to treat pyelonephritis along with specialty consultation Quality Stroke Does the patient have a stroke diagnosis?: No VTE Prior VTE?: No VTE Risk Level:: Medical - moderate - high VTE Device Contraindication: Treatment Not Indicated VTE Drug Contraindication: N/A - Med Ordered
[2024-02-26 15:11] VITALS: BP 124/60; PULSE 59; RESP 16; TEMP 36.4; O2SAT 96
[2024-02-26 16:11] LABS: Glucose, Whole Blood 179 mg/dL (60-115)
[2024-02-26] MEDS: cefTRIAXone sodium 1 GM VIAL IVPUSH (17:08)
[2024-02-26 17:09] VITALS: BP 131/61; PULSE 64
[2024-02-26 19:45] VITALS: BP 128/60; PULSE 69; RESP 16; TEMP 36.3; O2SAT 94
[2024-02-26 19:56] LABS: Glucose, Whole Blood 226 mg/dL (60-115)
[2024-02-26] MEDS: Enoxaparin Sodium 30 MG/0.3 ML SYRINGE SUBCUT (20:38)
[2024-02-26] MEDS: Gabapentin 300 MG CAPSULE PO (20:38)
[2024-02-26] MEDS: amLODIPine Besylate 5 MG TABLET PO (20:40)
[2024-02-26] MEDS: Insulin Glargine,Hum.rec.anlog 100 UNIT/ML 10 ML VIAL 12 UNIT SUBCUT (20:40)
[2024-02-27] MEDS: Lactated Ringers 1,000 ML 100 ML IVCONT (01:19)
[2024-02-27 03:17] VITALS: BP 111/53; PULSE 67; RESP 18; TEMP 36.8; O2SAT 96
[2024-02-27 06:13] LABS: MANUAL DIFF FLAG NO
[2024-02-27 06:19] LABS: Basophils Percent Auto 0.3 % (0-2); Eosinophils Absolute Auto 0.3 X10*3/uL (0.0-0.4); Eosinophils Percent Auto 3.6 % (0-4); Hematocrit 31.3 % (42.0-52.0); Hemoglobin 10.2 g/dl (14.0-18.0); Imm Gran Abs Auto 0.04 X10*3/uL (0.00-0.03); Imm Gran Pct Auto 0.4 % (0.0-0.4); Lymphocytes Absolute Auto 1.6 X10*3/uL (1.2-4.9); Lymphocytes Percent Auto 17.1 % (20-40); Mean Corpuscular HGB Conc 32.6 g/dl (31.0-36.0); Mean Corpuscular Hemoglobin 26.4 pg (27.0-33.0); Mean Corpuscular Volume 81.1 fL (80.0-98.0); Mean Platelet Volume 10.2 fL (9.4-12.4); Monocytes Absolute Auto 0.6 X10*3/uL (0.1-1.2); Monocytes Percent Auto 6.8 % (2-11); Neutrophils Absolute Auto 6.7 x10*3/uL (2.0-8.3); Neutrophils Percent Auto 71.8 % (45-73); Platelet Count 276 X10*3/uL (160-400); Red Blood Count 3.86 X10*6/uL (4.60-5.80); Red Cell Distribution Width 16.5 % (11.0-16.0); White Blood Count 9.4 X10*3/uL (4.8-10.8)
[2024-02-27 06:33] LABS: Alanine Aminotransferase < 6 U/L (0-40); Albumin Level 2.7 g/dL (3.5-5.0); Alkaline Phosphatase 86 U/L (39-117); Anion Gap 14 (12-20); Aspartate Amino Transferase 12 U/L (5-37); Bilirubin Total 0.2 mg/dL (0.0-1.0); Blood Urea Nitrogen 34 mg/dL (9-16); Calcium 8.7 mg/dL (8.4-10.2); Carbon Dioxide 19 mmol/L (22-29); Chloride 111 mmol/L (96-108); Creatinine Clr Calc Pharmacy 25.4; Estimated Glomerular Filt Rate 29; Glucose Fasting 105 mg/dL (60-99); Potassium 3.9 mmol/L (3.3-5.1); Sodium 140 mmol/L (135-145); Total Protein 6.7 g/dL (6.5-8.0)
[2024-02-27 07:27] VITALS: BP 113/55; PULSE 62; RESP 14; TEMP 36.8; O2SAT 97
[2024-02-27 07:34] LABS: Glucose, Whole Blood 108 mg/dL (60-115)
[2024-02-27] MEDS: carvediloL 6.25 MG TABLET PO ×2 (08:27→16:37)
[2024-02-27] MEDS: Sodium Bicarbonate 650 MG TABLET PO ×3 (08:28→22:12)
[2024-02-27] MEDS: Multivitamin TABLET 1 TAB PO (08:28)
[2024-02-27] MEDS: Finasteride 5 MG TABLET PO (08:28)
[2024-02-27] MEDS: 0.9 % Sodium Chloride Flush 3 ML SYRINGE IVFLUSH ×3 (08:29→22:15)
[2024-02-27 11:14] LABS: Glucose, Whole Blood 123 mg/dL (60-115)
--- NOTE | 2024-02-27 11:19 | HO.PM.IMPN ---
Subjective Subjective Date of Service: 02/27/24 Interval History: NPO overnight pending urological procedure. No acute issues Review of Systems Denies chest pain Denies shortness of breath Denies nausea vomiting diarrhea Denies fever chills Physical Exam Vital Signs: Vital Signs: Last Vital Signs Temp 98.3 F 02/27/24 07:27 Pulse 62 02/27/24 07:27 Resp 14 02/27/24 07:27 BP 113/55 L 02/27/24 07:27 Pulse Ox 97 02/27/24 07:27 O2 Del Method Room Air 02/27/24 07:27 O2 Flow Rate 2 02/25/24 08:30 BMI result Body Mass Index 21.3 Const: Other: Awake alert no acute distress Resp: Other: Clear to auscultation bilaterally no rales rhonchi or wheezes Cardio: Other: No S4; positive S1-S2; no S3 murmurs rubs or gallops GI: Other: Soft nontender nondistended normoactive bowel sounds Extrem: Other: No edema bilaterally Objective Data Active Medications Acetaminophen (Acetaminophen 325 Mg Tablet) 650 mg PO Q6H PRN PRN Reason: Pain, Mild 1-3,fever,headache Last Admin: 02/25/24 09:00 Dose: 650 mg Documented By: JONATHON Amlodipine Besylate (Amlodipine Besylate 5 Mg Tablet) 5 mg PO BEDTIME [facility]; Protocol Last Admin: 02/26/24 20:40 Dose: 5 mg Documented By: HOLLIS-NAJMADRSavannah Calcium Carbonate (Calcium Carbonate 750 Mg Tab.Chew) 750 mg PO Q4H PRN PRN Reason: Heartburn Carvedilol (Carvedilol 6.25 Mg Tablet) 6.25 mg PO BIDWM [facility]; Protocol Last Admin: 02/27/24 08:27 Dose: 6.25 mg Documented By: SARIKA Ceftriaxone Sodium (Ceftriaxone Sodium 1 Gm Vial) 1 gm IVPUSH Q24H [facility] Last Admin: 02/26/24 17:08 Dose: 1 gm Documented By: SARIKA Empagliflozin (Empagliflozin 25 Mg Tablet) 25 mg PO DAILY [facility] Last Admin: 02/27/24 08:30 Dose: Not Given Documented By: SARIKA Non-Admin Reason: NPO Enoxaparin Sodium (Enoxaparin Sodium 30 Mg/0.3 Ml Syringe) 30 mg SUBCUT Q24H [facility] Last Admin: 02/26/24 20:38 Dose: 30 mg Documented By: ANDÉRS Finasteride (Finasteride 5 Mg Tablet) 5 mg PO DAILY [facility] Last Admin: 02/27/24 08:28 Dose: 5 mg Documented By: SARIKA Gabapentin (Gabapentin 300 Mg Capsule) 300 mg PO BEDTIME [facility] Last Admin: 02/26/24 20:38 Dose: 300 mg Documented By: ANDRÉS Glucose (Glucose Gel 15 Gm Gel..Gram.) 15 gm PO Q15M PRN; Protocol PRN Reason: per Hypoglycemia Standing Ord. Hydromorphone HCl (Hydromorphone Hcl 0.5 Mg/0.5 Ml Syringe) 0.5 mg IVPUSH Q4H PRN; Protocol PRN Reason: Pain, Severe (Pain Scale 7-10) Dextrose (D10) 250 mls @ 750 mls/hr IV Q15M PRN; Protocol PRN Reason: per Hypoglycemia Standing Ord. Lactated Ringer's (Lr) 1,000 mls @ 100 mls/hr IVCONT .Q10H [facility] Last Admin: 02/27/24 01:19 Dose: 100 mls/hr Documented By: ANDRÉS Insulin Glargine (Insulin Glargine,Hum.Rec.Anlog 100 Unit/Ml 10 Ml Vial) 12 unit SUBCUT BEDTIME [facility] Last Admin: 02/26/24 20:40 Dose: 12 unit Documented By: ANDRÉS Insulin Human Lispro (Insulin Lispro 100 Unit/Ml 3 Ml Vial) 0 unit SUBCUT QIDACHS [facility]; Protocol Last Admin: 02/27/24 08:21 Dose: Not Given Documented By: SARIKA Non-Admin Reason: No Insulin Coverage Magnesium Hydroxide (Milk Of Magnesia 30 Ml Oral.Susp) 30 ml PO DAILY PRN PRN Reason: Constipation Melatonin (Melatonin 3 Mg Tablet) 6 mg PO BEDTIME PRN PRN Reason: Insomnia Multivitamins/Vitamin C (Multivitamin Tablet) 1 tab PO DAILY [facility] Last Admin: 02/27/24 08:28 Dose: 1 tab Documented By: SARIKA Ondansetron HCl (Ondansetron Hcl 4 Mg/2 Ml Vial) 4 mg IVPUSH Q8H PRN PRN Reason: Nausea and Vomiting Sodium Bicarbonate (Sodium Bicarbonate 650 Mg Tablet) 650 mg PO TID [facility] Last Admin: 02/27/24 08:28 Dose: 650 mg Documented By: SARIKA Sodium Chloride (0.9 % Sodium Chloride Flush 3 Ml Syringe) 3 ml IVFLUSH QSHIFT [facility] Last Admin: 02/27/24 08:29 Dose: 3 ml Documented By: SARIKA Labs 02/27/24 05:35 02/27/24 05:36 Labs: Laboratory Results - last 24 hr 02/26/24 02/26/24 02/27/24 16:06 19:47 05:35 MCV 81.1 MCH 26.4 L MCHC 32.6 RDW 16.5 H Plt Count 276 MPV 10.2 Immature Gran % (Auto) 0.4 Neut % (Auto) 71.8 Lymph % (Auto) 17.1 L [place] % (Auto) 6.8 Eos % (Auto) 3.6 Baso % (Auto) 0.3 Lymph # (Auto) 1.6 [place] # (Auto) 0.6 Eos # (Auto) 0.3 Baso # (Auto) 0.0 Abs Immat Gran (auto) 0.04 H Absolute Neuts (auto) 6.7 Absolute Nucleated RBC 0.000 Nucleated RBC % (auto) 0.0 Anion Gap Estim Creat Clear Calc Estimated GFR POC Glucose 179 H 226 H Fasting Glucose Calcium Total Bilirubin AST ALT Alkaline Phosphatase Total Protein Albumin 02/27/24 02/27/24 02/27/24 05:36 07:30 11:08 MCV MCH MCHC RDW Plt Count MPV Immature Gran % (Auto) Neut % (Auto) Lymph % (Auto) [place] % (Auto) Eos % (Auto) Baso % (Auto) Lymph # (Auto) [place] # (Auto) Eos # (Auto) Baso # (Auto) Abs Immat Gran (auto) Absolute Neuts (auto) Absolute Nucleated RBC Nucleated RBC % (auto) Anion Gap 14 Estim Creat Clear Calc 25.4 Estimated GFR 29 POC Glucose 108 123 H Fasting Glucose 105 H Calcium 8.7 Total Bilirubin 0.2 AST 12 ALT < 6 Alkaline Phosphatase 86 Total Protein 6.7 Albumin 2.7 L Microbiology Microbiology Results: Microbiology 02/24/24 21:33 Urine Culture - Final Urine clean catch - Clean Catch Midstream Lisbeth albicans 02/24/24 18:35 Blood Culture - Preliminary Blood - Venous No growth after 48 hours. 02/24/24 18:36 Blood Culture - Preliminary Blood - Venous No growth after 48 hours. Assessment and Plan (1) Pyelonephritis: Status: Acute (2) Acute kidney injury superimposed on chronic kidney disease: Status: Acute (3) Type 2 diabetes mellitus with chronic kidney disease: Status: Acute Plan Pt is a 78-year-old male with a PMH significant for?HTN, CKD 3, HLD, insulin-dependent type 2 diabetes, nephrolithiasis, CVA with left-sided hemiparesis, neuropathy, and mood disorder who presents to the ED with?left-sided abdominal pain since early in the morning. Pt will be admitted to the hospital for treatment and further evaluation of acute pyelonephritis with concerns for ureteral stricture versus malignancy. 1.Acute pyelonephritis -Ceftriaxone (4)... Switch to Ceftin on DC -cultures demonstrate yeast. -to OR with Dr. Earl today 2.[place] on CKD -now with the medical folic acid doses -bicarb 650 t.i.d....good response -lactated Ringer's 100 an hour -follow renals/divalents 3.Acute intermittent hypoxia -continues with O2 requirement -portable chest x-rays unremarkable -titrate supplemental O2 >92, wean as tolerated 4.Insulin-dependent type 2 diabetes -acceptable control on current therapies -lispro correctional scale -continue Lantus at outpatient dosing along with orals -adjust as indicated Full Code Lovenox Patient will require ongoing hospitalization for IV antibiotics to treat pyelonephritis along with specialty consultation Quality Stroke Does the patient have a stroke diagnosis?: No VTE Prior VTE?: No VTE Risk Level:: Medical - moderate - high VTE Device Contraindication: Treatment Not Indicated VTE Drug Contraindication: N/A - Med Ordered
--- NOTE | 2024-02-27 15:02 | MHC.CM.PN ---
per rounds pt not ready for dc todfay as he is having a precedure in speaking with pt [facility]
[2024-02-27 15:07] VITALS: BP 114/71; PULSE 72; RESP 18; TEMP 36.7; O2SAT 97
[2024-02-27 16:06] LABS: Glucose, Whole Blood 250 mg/dL (60-115)
[2024-02-27 16:37] VITALS: BP 118/72; PULSE 68
[2024-02-27] MEDS: cefTRIAXone sodium 1 GM VIAL IVPUSH (16:38)
[2024-02-27] MEDS: Insulin Lispro 100 UNIT/ML 3 ML VIAL SUBCUT ×2 (16:39→22:11)
[2024-02-27 19:26] VITALS: BP 120/57; PULSE 65; RESP 18; TEMP 36.5; O2SAT 97
[2024-02-27 20:50] LABS: Glucose, Whole Blood 203 mg/dL (60-115)
[2024-02-27] MEDS: Insulin Glargine,Hum.rec.anlog 100 UNIT/ML 10 ML VIAL 12 UNIT SUBCUT (22:11)
[2024-02-27] MEDS: amLODIPine Besylate 5 MG TABLET PO (22:12)
[2024-02-27] MEDS: Gabapentin 300 MG CAPSULE PO (22:12)
[2024-02-27] MEDS: Enoxaparin Sodium 30 MG/0.3 ML SYRINGE SUBCUT (22:13)
[2024-02-28 04:00] VITALS: BP 143/61; PULSE 64; RESP 18; TEMP 36.3; O2SAT 95
[2024-02-28 06:43] LABS: MANUAL DIFF FLAG NO
[2024-02-28 06:46] LABS: Basophils Percent Auto 0.3 % (0-2); Eosinophils Absolute Auto 0.3 X10*3/uL (0.0-0.4); Eosinophils Percent Auto 4.3 % (0-4); Hematocrit 30.9 % (42.0-52.0); Hemoglobin 9.8 g/dl (14.0-18.0); Imm Gran Abs Auto 0.02 X10*3/uL (0.00-0.03); Imm Gran Pct Auto 0.3 % (0.0-0.4); Lymphocytes Absolute Auto 1.6 X10*3/uL (1.2-4.9); Lymphocytes Percent Auto 23.5 % (20-40); Mean Corpuscular HGB Conc 31.7 g/dl (31.0-36.0); Mean Corpuscular Hemoglobin 25.6 pg (27.0-33.0); Mean Corpuscular Volume 80.7 fL (80.0-98.0); Mean Platelet Volume 9.9 fL (9.4-12.4); Monocytes Absolute Auto 0.6 X10*3/uL (0.1-1.2); Monocytes Percent Auto 8.7 % (2-11); Neutrophils Absolute Auto 4.2 x10*3/uL (2.0-8.3); Neutrophils Percent Auto 62.9 % (45-73); Platelet Count 299 X10*3/uL (160-400); Red Blood Count 3.83 X10*6/uL (4.60-5.80); Red Cell Distribution Width 16.6 % (11.0-16.0); White Blood Count 6.7 X10*3/uL (4.8-10.8)
[2024-02-28 07:27] VITALS: BP 103/50; PULSE 58; RESP 16; TEMP 36.2; O2SAT 97
[2024-02-28 07:47] LABS: Glucose, Whole Blood 125 mg/dL (60-115)
[2024-02-28 08:18] VITALS: BP 103/50; PULSE 58; O2SAT 97
[2024-02-28] MEDS: Empagliflozin 25 MG TABLET PO (09:08)
[2024-02-28] MEDS: Finasteride 5 MG TABLET PO (09:08)
[2024-02-28] MEDS: Sodium Bicarbonate 650 MG TABLET PO (09:08)
[2024-02-28] MEDS: Multivitamin TABLET 1 TAB PO (09:08)
[2024-02-28] MEDS: carvediloL 6.25 MG TABLET PO (09:08)
[2024-02-28] MEDS: 0.9 % Sodium Chloride Flush 3 ML SYRINGE IVFLUSH (09:10)
--- NOTE | 2024-02-28 10:50 | P.DS_ITS ---
DS: Providers Provider Date of Service: 02/28/24 Date of admission: 02/24/24 21:14 Date of discharge: 02/28/24 Primary care physician: Natacha Olivas MD Consults: 02/24/24 21:14 Consult to Urology Routine Consulting Provider: [facility] Urology Services Reason for consultation: pyelo ?ureteral stricture vs malignancy DS: Diagnosis Discharge Diagnosis (1) Pyelonephritis: Status: Acute (2) Acute kidney injury superimposed on chronic kidney disease: Status: Acute (3) Type 2 diabetes mellitus with chronic kidney disease: Status: Acute DS: Summary Hospital Course Hospital Course: 78-year-old male with a PMH significant for?HTN, CKD 3, HLD, insulin-dependent type 2 diabetes, nephrolithiasis, CVA with left-sided hemiparesis, neuropathy, and mood disorder who presents to the ED with?left-sided abdominal pain since early in the morning. Pt reports was awoken at 02:00 with severe left-sided, nonradiating abdominal pain. Denies nausea, vomiting diarrhea. Pt initially took some Tylenol which helped alleviate symptoms so that he could go back asleep, though when he woke this morning pain had significantly worsened which prompted his visit to the ED. pt reports polyuria, but denies dysuria or reduced urine stream. Denies fever or chills. Pt reports has felt increased fatigue for the past few months, though denies any acute unexpected weight loss. No chest pain/pressure, palpitations. Denies shortness or breath or difficulty breathing. No cough. In the ED pt with low-grade temp of 99.3 degrees and soft BP as low as 119/49. Pt then desatted to 88% after Dilaudid. Labs were significant for leukocytosis of 19.7, sodium 134, BUN 28, and creatinine 2.47. UA concerning for acute UTI with leukocyte esterase and wbc's greater than 50. CT?of abdomen and pelvis found persistent left perinephric and periureteral stranding moderate left hydroureter nephrosis, concerning for ureteral stricture or malignancy. Pt was treated with IVF, hydromorphone, metronidazole, and ceftriaxone. Pt will be admitted to the hospital for treatment and further evaluation of acute pyelonephritis with concerns for ureteral stricture versus malignancy versus upper tract infection. Hospital Course Patient admitted to the general medical floor and started on ceftriaxone. Blood cultures and urine cultures were negative . Patient was maintained on ceftriaxone. Seen in consultation by Urology however could not be taken to the OR secondary to Jardiance use. Discussed with Urology who states it is acceptable that he be discharged to complete a 7 day course of Ceftin and he will follow up in the office after antibiotics complete. Time Attestation Discharge Coordination Time (in mins): 35 Quality: Safe Use of Opioids Does Pt have an Active Cancer Diagnosis on the Problem List?: No Quality: Stroke Does the patient have a stroke diagnosis?: No Physical Exam Vital Signs: Vital Signs: Last Vital Signs Temp 97.2 F 02/28/24 07:27 Pulse 58 02/28/24 08:18 Resp 16 02/28/24 07:27 BP 103/50 L 02/28/24 08:18 Pulse Ox 97 02/28/24 08:18 O2 Del Method Room Air 02/28/24 07:27 O2 Flow Rate 2 02/25/24 08:30 BMI result Body Mass Index 21.3 Const: Other: Awake alert no acute distress Resp: Other: Clear to auscultation bilaterally no rales rhonchi or wheezes Cardio: Other: No S4; positive S1-S2; no S3 murmurs rubs or gallops GI: Other: Soft nontender nondistended normoactive bowel sounds Extrem: Other: No edema bilaterally DS: Data Data Completed and Pending Labs on day of discharge: Laboratory Results - last 24 hr 02/27/24 02/27/24 02/27/24 11:08 16:01 20:44 WBC RBC Hgb Hct MCV MCH MCHC RDW Plt Count MPV Immature Gran % (Auto) Neut % (Auto) Lymph % (Auto) [place] % (Auto) Eos % (Auto) Baso % (Auto) Lymph # (Auto) [place] # (Auto) Eos # (Auto) Baso # (Auto) Abs Immat Gran (auto) Absolute Neuts (auto) Absolute Nucleated RBC Nucleated RBC % (auto) POC Glucose 123 H 250 H 203 H 02/28/24 02/28/24 05:28 07:34 WBC 6.7 RBC 3.83 L Hgb 9.8 L Hct 30.9 L MCV 80.7 MCH 25.6 L MCHC 31.7 RDW 16.6 H Plt Count 299 MPV 9.9 Immature Gran % (Auto) 0.3 Neut % (Auto) 62.9 Lymph % (Auto) 23.5 [place] % (Auto) 8.7 Eos % (Auto) 4.3 H Baso % (Auto) 0.3 Lymph # (Auto) 1.6 [place] # (Auto) 0.6 Eos # (Auto) 0.3 Baso # (Auto) 0.0 Abs Immat Gran (auto) 0.02 Absolute Neuts (auto) 4.2 Absolute Nucleated RBC 0.000 Nucleated RBC % (auto) 0.0 POC Glucose 125 H Preliminary micro results at discharge 02/24/24 18:35 Blood Culture - Preliminary Blood - Venous No growth after 48 hours. 02/24/24 18:36 Blood Culture - Preliminary Blood - Venous No growth after 48 hours. Discharge Plan Discharge Anticipated Discharge Date/Time: 02/28/24 10:46 Patient Disposition: Xfer [facility] Discharge Diagnosis: Acute pyelonephritis Referrals: Natacha Olivas MD [Primary Care Provider] - 1 Week Discharge Medications: New sodium bicarbonate 650 mg Tablet 650 mg PO TID Qty: 90 0RF Continued (DME) lancets [OneTouch Delica Lancets] 33 gauge misc See Rx Instructions .ROUTE .MEDSUPPLY Qty: 200 10RF Rx Instructions: four times a day insulin glargine U-300 conc [Toujeo SoloStar U-300 Insulin] 300 unit/mL (1.5 mL) insulin pen 15 unit subcut BEDTIME amlodipine [Norvasc] 5 mg tablet 5 mg PO BEDTIME gabapentin 300 mg capsule 300 mg PO BEDTIME carvedilol 6.25 mg tablet 6.25 mg PO BIDWM multivitamin Tablet 1 tab PO DAILY (DME) pen needle, diabetic [Pentips Pen Needle] 32 gauge x 5/32 needle See Rx Instructions .ROUTE .MEDSUPPLY Qty: 50 Rx Instructions: As directed 4 TIMES A DAY finasteride 5 mg tablet 5 mg PO DAILY 90 Days Qty: 90 1RF insulin lispro [Humalog KwikPen Insulin] 100 unit/mL insulin pen 4 unit subcut TID Qty: 15 2RF Jardiance 25 mg tablet 25 mg PO DAILY Qty: 90 0RF (DME) OneTouch Verio test strips Strip See Rx Instructions .ROUTE .MEDSUPPLY Qty: 150 11RF Rx Instructions: 4 x/day (DME) blood-glucose meter Misc See Rx Instructions .ROUTE .MEDSUPPLY Qty: 1 0RF Rx Instructions: As directed 4x/day (DME) lancets [OneTouch UltraSoft 2 Lancet] 30 gauge misc See Rx Instructions .ROUTE .MEDSUPPLY Qty: 100 2RF Rx Instructions: use daily As directed to monitor blood sugars (DME) Dexcom G7 Sensor Device See Rx Instructions .ROUTE .MEDSUPPLY Qty: 3 5RF Rx Instructions: Use daily As directed to monitor glucose. change q 10 days glucose [Dex4 Glucose] 4 gram tablet,chewable 16 g PO Q15M PRN (Reason: hypoglycemia) Qty: 100 0RF Rx Instructions: until symptoms of low blood sugar are controlled Discharge Orders: Discharge Order (Routine); Ordered 02/28/24 Ordered By: Rashad Reid Diet: Advance to usual diet Activity on Discharge: As tolerated Stand Alone Forms: Patient Portal Discharge page Print Language: Sri Lankan Care Plan Goals: Medicines as listed on transfer sheet Health Concerns: Ceftin 250 mg twice daily for 7 days. We will need to make follow up with Dr. Earl's office when antibiotics complete Plan of Treatment: As per receiving facility Assessment: See discharge summary
[2024-02-28 11:45] LABS: Glucose, Whole Blood 272 mg/dL (60-115)
[2024-02-28] MEDS: Insulin Lispro 100 UNIT/ML 3 ML VIAL SUBCUT (11:57)
--- NOTE | 2024-02-28 14:16 | MHC.CM.PN ---
PT WILL DC TO [facility] TODAY [facility]IA [facility] AT 1530 HOURS
== END 2024-02-28 15:18 | disposition skilled nursing facility (03) | DRG 690 ==
LOC: HO.ED 21:37 → HO.EDOVER 21:43 → HO.S3 02-25 06:32
PROVIDERS: Admitting Provider Student in an Organized Health Care Education/Training Program; Emergency Provider Emergency Medicine Emergency Medical Services; PCP Family Medicine; Visit Provider Hospitalist
DX: N13.6 Pyonephrosis (principal); I69.354 Hemiplegia and hemiparesis following cerebral infarction affecting left non-dominant side; E11.42 Type 2 diabetes mellitus with diabetic polyneuropathy; N17.9 Acute kidney failure, unspecified; R09.02 Hypoxemia; I12.9 Hypertensive chronic kidney disease with stage 1 through stage 4 chronic kidney disease, or unspecified chronic kidney disease; N18.30 Chronic kidney disease, stage 3 unspecified; E11.22 Type 2 diabetes mellitus with diabetic chronic kidney disease; Z79.4 Long term (current) use of insulin; Z79.899 Other long term (current) drug therapy
CPT/HCPCS: 36415; 71045; 74176; 80048; 80053; 81001; 82947; 83605; 85025; 87040; 87086; 87088; 97116; 97161; 99285; J0696; J1171; J1650; J1836; J7120

== ENCOUNTER → 2024-02-24 18:16 | Outpatient (BNV) | payer MEDICARE, MEDICAID, SELFPAY | PROVIDERS: Emergency Provider Emergency Medicine Emergency Medical Services; PCP Family Medicine; Visit Provider Radiology Diagnostic Radiology | DX: N13.4 Hydroureter (principal) | CPT/HCPCS: 74176 ==

== ENCOUNTER 2024-02-24 21:14 | Outpatient (BNV) | payer MEDICARE, MEDICAID, SELFPAY | END 2024-02-25 11:50 | PROVIDERS: Admitting Provider Student in an Organized Health Care Education/Training Program; Emergency Provider Emergency Medicine Emergency Medical Services; PCP Family Medicine; Visit Provider Radiology Diagnostic Radiology | DX: R09.02 Hypoxemia (principal) | CPT/HCPCS: 71045 ==

== ENCOUNTER → 2024-02-24 21:14 | Outpatient (BNV) | payer MEDICARE, MEDICAID, SELFPAY | PROVIDERS: Admitting Provider Student in an Organized Health Care Education/Training Program; Emergency Provider Emergency Medicine Emergency Medical Services; PCP Family Medicine; Visit Provider Student in an Organized Health Care Education/Training Program | DX: N12 Tubulo-interstitial nephritis, not specified as acute or chronic (principal); N17.9 Acute kidney failure, unspecified; N18.9 Chronic kidney disease, unspecified; E11.21 Type 2 diabetes mellitus with diabetic nephropathy; N18.32 Chronic kidney disease, stage 3b; Z79.4 Long term (current) use of insulin | CPT/HCPCS: 99223; 99232; 99239 ==

== ENCOUNTER 2024-04-15 12:26 | Outpatient (REF) | payer MEDICARE, MEDICAID, SELFPAY ==
--- OUTSIDE RECORDS SUMMARY | 2024-04-15 16:27 | XMS_ITS | Continuity of Care Document ---
Author Organization [facility], [facility] Address [address] [place] [address] Care Team Providers Care Issuing Operator Name Role Phone MARCY WATSON - 2ND [...] Address Organization Details Recorded Time Hypertensive disorder 59173032 Active 2024 Elsa Navarro NP [address] , [address], [place], [address], [facility] 5 11:03:25 Chronic kidney disease stage 3 848218691 Active 2024 Elsa Navarro NP [address] , [address], [place], [address], [facility] 5 11:03:33 Hyperlipidemia 81575046 Active 2024 Elsa Navarro NP [address], [address], [place], [address], [facility] 5 11:03:38 Insulin treated type 2 diabetes mellitus 495951339 Active 2024 Elsa Navarro NP [address], [address], [place], [address], [facility] 5 11:03:57 Kidney stone 00880741 Active 2024 Elsa Navarro NP [address], [address], [place], [address], [place] [employer] [facility] 5 11:04:21 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 875502813 Active 2024 Elsa Navarro NP [address], [address], [place], [address], [facility] 5 11:04:46 Neuropathy 263968335 Active 2024 Elsa Navarro NP [address], [address], [place], [address], [place] [facility] 5 11:05:05 Mood disorder 88619681 Active 2024 Elas Navarro NP [address], [address], [place], [address], [facility] 5 11:05:17 Pyelonephritis 24345540 Active 2024 Elsa Navarro NP [address], [address], [place], [address], [place] [facility] 5 11:05:45 Acute kidney injury 57972619 Active 2024 Elsa Navarro NP [address] , [address], [place], [address], [facility] 5 11:05:53 Problem Notes None recorded. Medical Equipment None Reported. Allergies No known drug allergies Medications Not known to be on any medication Vitals Date Recorded Body weight Heart rate Respiratory rate Body temperature Oxygen saturation Oxygen saturation in Arterial blood by Pulse oximetry Systolic blood pressure Diastolic blood pressure Provider Name and Address Organization Details Last Updated DateTime 5 85140.4 9 g 77 /min 18 /min 98 [degF] 96 % 96 % 124 mm[Hg] 58 mm[Hg] Elsa Navarro NP [address], [address], [place], [address], [facility] 5 14:22:40 Social History Question Answer Notes LastModified by Organizat ion Details LastModified Time Tobacco Smoking Status Never Smoker Elsa Navarro NP [address], [address], [place], [address], [facility] 02/29/2024 10:59:02 Do You Have An [...] Details Recorded Time HepB-CpG 3 completed Nayan ewing, [facility] [employer] [facility] 02/29/2024 13:28:40 Tdap 3 completed Nayan Mcguire null, [facility] [employer] [facility] 02/29/2024 13:28:53 Tdap 3 completed Nayan ewing, [facility] [employer] [facility] 02/29/2024 13:28:57 Td(adult) unspecified formulation 3 completed Nayan ewing, [facility] [employer] [facility] 02/29/2024 13:29:13 Pneumococcal conjugate PCV 13 5 completed Nayan ewing, [facility] 02/29/2024 13:29:28 pneumococcal polysaccharide PPV23 7 completed Nayan Garcias-Mazariegos null, [facility] 02/29/2024 13:29:44 influenza, unspecified formulation 0 completed Nayan Joses-Mazariegos null, [facility] 02/29/2024 13:29:58 influenza, unspecified formulation 1 completed Nayan Jacks-Mazariegos null, [facility] 02/29/2024 13:30:02 influenza, unspecified formulation 2 completed Nayan Jacks-Mazariegos null, [facility] 02/29/2024 13:30:07 influenza, unspecified formulation 3 completed Nayan Jacks-Mazariegos null, [facility] 02/29/2024 13:30:12 influenza, unspecified formulation 4 completed Nayan Jacks-Mazariegos null, [facility] 02/29/2024 13:30:18 influenza, unspecified formulation 4 completed Nayan Jacks-Mazariegos null, [facility] 02/29/2024 13:30:26 SARS-COV-2 (COVID-19) vaccine, UNSPECIFIED 1 completed Nayan Jacks-Mazariegos null, [facility] 02/29/2024 13:30:41 SARS-COV-2 (COVID-19) vaccine, UNSPECIFIED 1 completed Nayan Jacks-Mazariegos null, [facility] 02/29/2024 13:30:46 SARS-COV-2 (COVID-19) vaccine, UNSPECIFIED 1 completed Nayan Jacks-Mazariegos null, [facility] 02/29/2024 13:30:50 SARS-COV-2 (COVID-19) vaccine, UNSPECIFIED 2 completed Nayan Jacks-Mazariegos null, [facility] 02/29/2024 13:30:54 SARS-COV-2 (COVID-19) vaccine, UNSPECIFIED 4 completed Nayan Jacks-Mazariegos null, [facility] 02/29/2024 13:31:00 zoster, unspecified formulation 1 completed Nayan Jacks-Mazariegos null, [facility] 02/29/2024 13:31:14 zoster, unspecified formulation 2 completed Nayan Fletcher-Yair ewing [facility] 02/29/2024 13:31:20 Past Encounters Encounter ID Performer Location Encounter Start Date Encounter Closed Date Diagnosis/Indication Diagnosis SNOMED-CT Code Diagnosis ICD10 Code Diagnosis Note [id number] [facility] [address] [place] [address] 02/29/2024 10:11:12 03/04/2024 09:01:38 Acute kidney injury 08296915 N17.9 pt with AKIno labs provided from hospital (?baseline or bmp)report ed resovled in [facility] get bmp weekly wed x 3 weeks Pyelonephritis 79388257 N16 with leukocysto is in hosp resolvedCT [...] bicarbonat e 650 mg po tid in hospfinish ed abx in hospbmp, cbc weekly Insulin tr eated type 2 diabetes mellitus 211495605 Z79.4 hx ofcont dm medication slispor 4 units sc tid with BSglargine (toujeo)15 units sc qhsjardian ce 25 mg po qdmonitor BS and adjust meds as neededhaic x1 ordered Hypertensive disorder 38 162914 I10 amlodipine 5 mg po qhscarvedi lol 6.25 mg po bidwmmonit or bps daily Chronic ki dney disease stage 3 565425220 N18.30 AMERICO on CKD in hospunclea r of baseline CKD levelsawai t labs to come backbmp weekly x 3 weeks Hyperlipidemia 40204137 E78.5 not on meds for thismonito r Kidney stone 98060726 N2 0.0 hx of Right side d cerebral hemisphere cerebrovascular accident 998131355 I63.9 pt with hx of left sided weakness sp right sided cva approx 1 year agohas w/c, hosp bed, and walker with fitter machinist at home and family involvedPT OT eval and treat Neuropathy 677830498 G62 .9 gabapentin 300 mg po qhsmonitor Mood disorder 11760008 F 40 hx of not on meds for this Asthenia 90396261 R53.1 pt with asthenia from recent hospPT OT eval and treatmonit or [id number] Steven Saez MD [facility] [address] [address] 03/01/2024 10:13:39 03/04/2024 09:34:04 Pyelonephritis 65161541 N16 see HPI now to complete course of Abxadd probioticc oncern for underlying stricture vs malignancy to f/u with urology for cystoscopy Acute kidney injury 1466 9001 N17.8 ARF on CRFavoid nephrotoxi c meds as ablerepeat renal function labsreques t results from hospital Insulin tr eated type 2 diabetes mellitus 057785848 E11.42 continue out patient medsgabape ntin 300 mg qhs for neuropathi c painmonito r blood glucose and need to titrate Hypertensive disorder 38 379308 I10 norvasc 5 mg qdcoreg 6.25 mg bidmonitor bp and need to titrate Chronic ki dney disease stage 3 122687266 N18.31 see aboveunsur e of baseline with prior results requested Right side d cerebral hemisphere cerebrovascular accident 257665112 I63.9 prior cva with residual left sided weakness added to PMH Asthenia 41243829 R53.1 PT OT eval and treatmonit or fall risk and need for increased support in community [id number] Elsa Navarro NP [facility] [address] [address] 03/07/2024 09:03:20 03/10/2024 16:22:52 Pyelonephritis 75293770 N16 resolvedco mpleted course of Abx with probioticc oncern for underlying stricture vs malignancy to f/u with urology for cystoscopy outpt Acute kidney injury 1466 9001 N17.8 ARF on CRFavoid nephrotoxi c meds as ablerepeat renal function labsmonito r Chronic ki dney disease stage 3 816225399 N18.31 see aboveunsur e of baseline with prior results requested Asthenia 60112484 R53.1 PT OT eval and treatmonit or fall risk and need for increased support in community Hypertensive disorder 38 956296 I10 contnorvas c 5 mg qdcoreg 6.25 mg bidmonitor bp and need to titrate Right side d cerebral hemisphere cerebrovascular accident 992630348 I63.9 prior cva with residual left sided weakness added to PMH Insulin tr eated type 2 diabetes mellitus 817865119 Z79.4 hx of cont dm medication slispro 4 units sc tid with BSglargine (toujeo)15 units sc qhsjardian ce 25 mg po qdmonitor BS and adjust meds as needed Neuropathy 911277779 G62 .9 gabapentin 300 mg po qhsmonitor Mood disorder 46940971 F 40 hx of not on meds for thismonito r for need to have psych eval prn [id number] Elsa Navarro NP [facility] [address] 03/14/2024 16:28:43 03/18/2024 11:20:41 Acute kidney injury 16207361 N17.8 ARF on CRFavoid nephrotoxi c meds as ablerepeat renal function labs next weekmonito r Chronic ki dney disease stage 3 249738287 N18.31 see aboveunsur e of baseline with prior results requested Pyelonephritis 17588151 N16 resolvedco mpleted course of Abx with probioticc oncern for underlying stricture vs malignancy to f/u with urology for cystoscopy outpt ? 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 429850129 I63.9 prior cva with residual left sided weakness added to PMH Insulin tr eated type 2 diabetes mellitus 083731595 Z79.4 no BS recorded in pcc, will reorder todayhx of cont dm medication slispro 4 units sc tid with BSglargine (toujeo)15 units sc qhsjardian ce 25 mg po qdmonitor BS and adjust meds as needed Neuropathy 201216596 G62 .9 gabapentin 300 mg po qhsmonitor [id number] Elsa Navarro NP [facility] [place] [address] [place] [address] 03/21/2024 08:26:58 03/24/2024 14:51:48 Acute kidney injury 08467488 N17.8 baseline or better than as aboveARF on CRFavoid nephrotoxi c meds as ablemonito r Chronic ki dney disease stage 3 087997770 N18.31 see aboveunsur e of baseline with prior results requested Pyelonephritis 24615081 N16 resolved, asymptomat iccomplete d course of Abx with probioticc oncern for underlying stricture vs malignancy to f/u with urology for cystoscopy outpt ? if this is scheduled- nsg to look into Asthenia 34374941 R53.1 cont PT OT eval and treat for strengthen ing, gait, mobility, safety, balance, etc...erik tor fall risk and need for increased support in community Hypertensive disorder 38 491602 I10 bp stablecont norvasc 5 mg qdcoreg 6.25 mg bidmonitor bp and need to titrate Right side d cerebral hemisphere cerebrovascular accident 769971472 I63.9 prior cva with residual left sided weakness added to PMH Insulin tr eated type 2 diabetes mellitus 167586011 Z79.4 BS controlled on belowhx of cont dm medication slispro 4 units sc tid with BSglargine (toujeo)15 units sc qhsjardian ce 25 mg po qdmonitor BS and adjust meds as needed Neuropathy 217103275 G62 .9 gabapentin 300 mg po qhsmonitor Health Concerns Section Related Observation LastModified by Organization Detai ls LastModified Time None Recorded Concern Status LastModified by Organization Details LastModified Time None Recorded Payers Encounter Date Sequence Insurance Name Policy Number Policy Landers Covered Member ID Landers Member ID Guarantor Name 03/21/2024 2 [place] [id number] Hector Jaramillo [id number] [facility] Jaramillo 03/21/2024 1 MEDICARE B-[place]: [employer] [facility] Jaramillo [id number] [facility] Jaramillo Notes Date Note Type Note Provider Name and Address Organization Details Recorded Time 03/21/2024 text/html Pt is seen for a [...] male with pmh above who presented to [facility] 02/23-02/28/24 with severe left-sided , polyuria, fatigue, non radiating abd pain diagnosed with AMERICO on CKD, pyelonephritis, and leukocystois of 19.7 here for rehab and continued care at [facility]. Left hydronephrosis eval'd by urology with concern for underlying malignancy and rec to fu outpt for cystoscopy. GODDARD: high riskMOLST: full code 02/29/24BIMS Elsa Navarro NP [address] [facility], [address], [place], [address], [facility] 03/21/2024 14:30:52
--- OUTSIDE RECORDS SUMMARY | 2024-04-15 16:27 | XMS_ITS | Encounter Summary ---
Author Organization [employer] Address [address] [place] [address] Care Team Providers Care Inspector Raw Quartz Name Role Phone Natacha Olivas MD Primary Care Provider [phone]- [phone] Rukhsana Penaloza PharmD Unavailable [phone] Ebenezer Earl MD Unavailable [phone] Encounter Details Date Type Department Care Team (Late st Contact Info) Description 02/23/2023 Telephone [facility] [address] [place] [address] Natacha Olivas MD [address] [place] [address] Social History Tobacco Use Types Packs/Day Years [...] pt's spouse stating they received a call, designer writer did not see any notes. documented in this encounter Plan of Treatment Upcoming Encounters Date Type Department Care Team (Late st Contact Info) Description 06/02/2024 9:45 AM EDT Office Visit [facility] [address] [place] [address] Natacha Olivas MD [address] [place] [address] documented as of this encounter Goals Goal [...] documented as of this encounter Care Teams Inspector Raw Quartz Relationship Specialty Start Date End Date Natacha Olivas MD [address] [place] [address] [id number] PCP - General Family Medicine 09/05/13 Rukhsana Penaloza, PharmD [address] [place] [address] Pharmacist Internal Medicine 07/13/22 Ebenezer Earl MD [address] [place] [address] Urology [facility] Ember Krishnamurthy PA-C [facility] Endocrinology Endocrinology 02/18/24 documented as of this encounter
--- OUTSIDE RECORDS SUMMARY | 2024-04-15 16:27 | XMS_ITS | Encounter Summary ---
Author Organization [employer] Address [address] [facility] [address] [place] [address] Care Team Providers Care Yacht Hand Name Role Phone Natacha Olivas MD Primary Care Provider +- [phone] Rukhsana Penaloza PharmD Unavailable [phone] Ebenezer Earl MD Unavailable [phone] Encounter Details Date Type Department Care Team (Late st Contact Info) Description 01/02/2024 Telephone [facility] [address] [place] [address] Natacha Olivas MD [address] [place] [address] Social History Tobacco Use Types Packs/Day Years [...] - 01/02/2024 4:10 PM EST Tc from [facility] services requesting a call back regarding acouple question. Would like to know if pt has the capacity of making his own decision.Any care proxy on file,level of care and if the provider has any concerns. Best contact # [phone] ext [phone] documented in this encounter Plan of Treatment Upcoming Encounters Date Type Department Care Team (Late st Contact Info) Description 06/02/2024 9:45 AM EDT Office Visit [facility] [address] [place] [address] Natacha Olivas MD [address] [place] [address] documented as of this encounter Goals Goal [...] documented as of this encounter Care Teams Yacht Hand Relationship Specialty Start Date End Date Natacha Olivas MD [address] [place] [address] PCP - General Family Medicine 09/05/13 Rukhsana Penaloza, HiltonD [address] [place] [address] Pharmacist Internal Medicine 07/13/22 Ebenezer Earl MD [address] [place] [address] Urology 02/18/24 [facility] 08/08/23 Ember Krishnamurthy PA-C [facility] Endocrinology Endocrinology 02/18/24 documented as of this encounter
--- OUTSIDE RECORDS SUMMARY | 2024-04-15 16:27 | XMS_ITS | Encounter Summary ---
Author Organization [employer] Address [address] [place] [address] Care Team Providers Care Flatbed Driver Name Role Phone Natacha Olivas MD Primary Care Provider [phone] Rukhsana Penaloza PharmD Unavailable [phone] Ebenezer Earl MD Unavailable [phone] Reason for Visit * Reason Comments Med Refill Encounter Details Date Type Department Care Team (Late st Contact Info) Description 12/26/2023 Refill [facility] [address] [place] [address] Natacha Olivas MD [address] [place] [address] Type 2 diabetes mellitus with stage 3b chronic kidney disease, unspecified whether terminal press operator insulin use ([facility]) Social History Tobacco Use Types Packs/Day Years [...] Description 06/02/2024 9:45 AM EDT Office Visit [facility] [address] [place] [address] Natacha Olivas MD [address] [place] [address] documented as of this encounter Goals Goal Patient Goal Type Associated Problems Recent Progress Patient-Stated? Author Blood Pressure < 140/90 Blood Pressure 127/67( 024 9:50 AM EST) No Rukhsana Allen, PharmD documented as of this encounter Visit Diagnoses Diagnosis Type 2 diabetes mellitus with stage 3b chronic kidney disease, unspecified whether terminal press operator insulin use ([facility]) documented in this encounter Additional Health Concerns Assessment Noted Time PHQ-9 Depression Total Score: 5 05/16/19 24 9:17 AM EDT documented as of this encounter Care Teams Flatbed Driver Relationship Specialty Start Date End Date Natacha Olivas MD [address] [place] [address] PCP - General Family Medicine 09/05/13 Rukhsana Penaloza, G[place] [address] [place] [address] Pharmacist Internal Medicine 07/13/22 Ebenezer Earl MD [address] [place] [address] Urology 02/18/24 [facility] 08/08/23 Ember Krishnamurthy PA-C [facility] Endocrinology Endocrinology 02/18/24 documented as of this encounter
--- OUTSIDE RECORDS SUMMARY | 2024-04-15 16:27 | XMS_ITS | Encounter Summary ---
Author Organization [employer] Address [address] [facility] 7t [place] [address] Care Team Providers Care Roustabout Crew Leader Name Role Phone Natacha Olivas MD Primary Care Provider +1- [phone] Rukhsana Penaloza PharmD Unavailable +1- [phone] Ebenezer Earl MD Unavailable [phone] Reason for Visit * Reason Onset Date Comments Medication Question 12/27/2023 Encounter Details Date Type Department Care Team ([facility] st Contact Info) Description 12/27/2023 Telephone [facility] MEDICINE [address] [place] [address] Natacha Olivas MD [address] [place], [place] [phone] Medication Question Social History Tobacco Use Types [...] the past 12 months, has t he [employer], gas, oil or water [employer] threatened to shut off services in your [...] 12/27/2023 2:34 PM EST TC placed to [facility] to go over pt most recent medication list. Pt was recently discharged from [facility] on 12/20/23 with a new sliding scale [...] - 12/27/2023 11:26 AM EST Tc from [facility] requesting a call back to go over pt medication. documented in this encounter Plan of Treatment Upcoming Encounters Date Type Department Care Team (Late st Contact Info) Description 06/02/2024 9:45 AM EDT Office Visit [facility] MEDICINE [address] [place] [address] Natacha Olivas MD [address] [place] [address] documented as of this encounter Goals Goal [...] documented as of this encounter Care Teams Roustabout Crew Leader Relationship Specialty Start Date End Date Natacha Olivas MD [address] [place] [address] PCP - General Family Medicine 09/05/13 Rukhsana Penaloza, HiltonD [address] [place] [address] Pharmacist Internal Medicine 07/13/22 Ebenezer Earl MD [address] [place] [address] Urology 02/18/24 [facility] 08/08/23 Ember Krishnamurthy PA-C [facility] Endocrinology Endocrinology 02/18/24 documented as of this encounter
--- OUTSIDE RECORDS SUMMARY | 2024-04-15 16:27 | XMS_ITS | Encounter Summary ---
Author Organization [employer] Address [address] [facility] 7t [place] [address] Care Team Providers Care Adult And Pediatric Neurologist Name Role Phone Natacha Olivas MD Primary Care Provider +1- [phone] Rukhsana Penaloza PharmD Unavailable [phone]- [phone] Ebenezer Earl MD Unavailable [phone] Reason for Visit * Reason Onset Date Comments Appointment Request 12/18/2023 Encounter Details Date Type Department Care Team ([facility] st Contact Info) Description 12/18/2023 Telephone [facility] MEDICINE [address] [place] [address] Natacha Olivas MD [address] [place], [place] [phone] Appointment Request Social History Tobacco Use Types [...] answered who states pt is admitted at [facility] currently. Admitted for Nausea vomiting and diarrhea, Acute kidney injury superimposed on chronic kidney disease per [facility]. Spouse is requesting follow up with PCP. [...] Description 06/02/2024 9:45 AM EDT Office Visit [facility] MEDICINE [address] [place] [address] Natacha Olivas MD [address] [place] [address] documented as of this encounter Goals Goal [...] documented as of this encounter Care Teams Adult And Pediatric Neurologist Relationship Specialty Start Date End Date Natacha Olivas MD [address] [place] [address] PCP - General Family Medicine 09/05/13 Rukhsana Penaloza, PharmD [address] [place] [address] Pharmacist Internal Medicine 07/13/22 Ebenezer Earl MD [address] [place] [address] Urology 02/18/24 [facility] 08/08/23 Ember Krishnamurthy PA-C [facility] Endocrinology Endocrinology 02/18/24 documented as of this encounter
--- OUTSIDE RECORDS SUMMARY | 2024-04-15 16:27 | XMS_ITS ---
Author Name Nidhi Spence NP Address [address] [place] [address] Phone [phone] Organization [facility] Care Team Providers Care Pet Care Attendant Name Role Phone Nidhi Spence Unavailable [phone] Unavailable Unavailable Unavailable Reason for Referral Not [...] 2023-07-29 No Data Available [employer] Plus [id number] Miscellaneous No Data Available 2022-08-14 No Data [...] GaviLAX 17 GM/SCOOP Powder TAKE 17 GM WI XED IN 8 OUNCES OF WATER ONCE [...] Active 2024-01-08 N/A Other problems related to wi dical facilities and other health care Active 2024-01-09 N/A Encounters Encounters Type Facility Date of Service Diagnosis/Co mplaint New patient,40-59min; chronic exacerbation, 2 stable chronic or 1 acute illness add add modifier 95 for video (do not use for phone, instead use 94911-33) [facility] 01[place]09/2024 Type 2 diabetes mellitus wit h [...] (do not use for phone, instead use 20091-59) [facility] 01/09/2024 New patient,40-59min; chronic exacerbation, 2 stable chronic or 1 acute illness add add modifier 95 for video (do not use for phone, instead use 85761-63) [facility] 01/09/2024 New patient,40-59min; chronic exacerbation, 2 stable chronic or 1 acute illness add add modifier 95 for video (do not use for phone, instead use 32208-92) [facility] 01/09/2024 New patient,40-59min; chronic exacerbation, 2 stable chronic or 1 acute illness add add modifier 95 for video (do not use for phone, instead use 68724-35) [facility] 01/09/2024 No Data Available [facility] [place] 02/07/2024 Type 2 diabetes mellitus wit h diabetic nephropathyChronic kidney disease, stage 4 (severe)director long term care (current) use of insulinChronic diastolic (congestive) heart failureSecondary hyperaldosteronismEssential (primary) hypertensionConstipation, unspecifiedOther problems related to medical facilities and other health careHistory of falling No Data Available [facility] 02/07/2024 Estab. patient 10-29min; 1 minor problem; add add modifier 95 for video, modifier 93 for phone [facility] [place] 03/05/2024 Chronic kidney disease, stag e 4 [...] (do not use for phone, instead use 78159-11) [address] 2024-01-09 No Data Available No Data Availa [...] le No Data Available No Data Available [id number] 2024-02-07 No Data Available No Data Available Medication List Documented (1159F) [id number] 2024-02-07 No Data Available No Data Juliana ilable Estab. patient 10-29min; 1 minor problem; add add modifier 95 for video, modifier 93 for phone [id number] 2024-03-05 No Data Available No Data Availa [...] anne-marie del real lisproGFR 29 11/19/23- shantelle lvsazvSWIH9U 8.2 [facility]/27[facility] Recommend medication compliance, healthy [...] then acute rehab stayf/u Dr. Merlin Padilla [facility] Neurosurgery Sunday-Amlodipine, Carvedilol Blood Pressure 128/72 [...] modifier 95)Continue to see PCP. [facility] or disease education needs that may arise 11/09.jardiance, lantus, lisproGFR 29 11/19/23- [facility] 8.2 12/27/23- [facility] Recommend medication compliance, healthy [...] for phoneContinue to see PCP. [facility] any acute or disease education needs that may arise 11/09.jardikings, lantus, lisproGFR 29 11/19/23- [facility] systemsHGBA1C 8.2 12/27/23- [facility] Recommend medication compliance, healthy weight/BMI, [...] pain around his kidney. [facility], [facility] is currently at [facility]. Team [...] pain around his kidney. He went to [facility], he is currently at [facility]. Team updated for f/u. Reports steadily improving, unable to provide details of medical problem.
--- OUTSIDE RECORDS SUMMARY | 2024-04-15 16:28 | XMS_ITS | Clinical Summary ---
Author Organization [facility], Address [address] [place] [address] [place] [address] Phone Care Team Providers Care Barge Loader Name Role Phone Natacha Olivas MD Primary [...] EDT) Hemoglobin A1C 7.9(H) (4.0-5.6) % [facility] Comment: MONITORING: In known diabetic patients, hemoglobin A1c targets should be discussed with health care provider. DIAGNOSTIC USE: ??The [place] Diabetes [employer] (ADA) and the World Health [...] Supplement 1 Testing performed or reported by [facility], a Service of [facility], [address] [place] [address] Antonella Bauman MD, Scorer Helper [facility]# [id number] Blood (Blood, Venous) 12/23/2021 9:54 AM EDT 12/23/2021 9:55 AM EDT Ana SANCHEZ LAB BLOOD ORDERABLES Final Re sult [facility] from Last 3 Months or Most Recently Relevant to Health Maintenance Insurance [place]ICAID [place] [facility] Care Teams Barge Loader Relationship Specialty Start Date End Date Deisy, Natacha Hickman MD PCP - General 12/24/18
--- OUTSIDE RECORDS SUMMARY | 2024-04-15 16:28 | XMS_ITS | Encounter Summary ---
Author Organization [employer] Address [address] [place] [address] 7t [place] [address] Care Team Providers Care Road Freight Conductor Name Role Phone Natacha Olivas MD Primary Care Provider + [phone] Rukhsana Penaloza PharmD Unavailable [phone] Ebenezer Earl MD Unavailable [phone] Encounter Details Date Type Department Care Team (Latest Contact Info) Description 03/10/2021 Abstract [facility] CONVERSIONS Dental, Provider, DDS Social History [...] 06/02/2024 9:45 AM EDT Office Visit [facility] MEDICINE [address] [place] [address] Natacha Olivas MD [address] [place] [address] documented as of this encounter Visit Diagnoses Not on filedocumented in this encounter Care Teams Road Freight Conductor Relationship Specialty Start Date End Date Natacha Olivas MD [address] [place] [address] PCP - General Family Medicine 09/05/13 Rukhsana Penaloza, PharmD [address] [place] [address] Pharmacist Internal Medicine 07/13/22 Ebenezer Earl MD [address] [place] [address] Drive [address] [place] [address] Urology 02/18/24 [facility] 08/08/23 Ember Krishnamurthy PA-C [facility] Endocrinology Endocrinology 02/18/24 documented as of this encounter
--- OUTSIDE RECORDS SUMMARY | 2024-04-15 16:28 | XMS_ITS | Encounter Summary ---
Author Organization [facility], Address [address] [place] [address] Phone Care Team Providers Care Burnisher Name Role Phone Natacha Olivas MD Primary Care Provider U bran Encounter Details Date Type Department Care Team (Late st Contact Info) Description 12/26/2021 Documentation Only [facility], [address] [place] [phone] Ana Browning PA Social History Tobacco Use [...] on filedocumented in this encounter Care Teams Burnisher Relationship Specialty Start Date End Date Natacha Oliavs MD PCP - General 12/24/18 documented as of this encounter
--- OUTSIDE RECORDS SUMMARY | 2024-04-15 16:28 | XMS_ITS | Encounter Summary ---
Author Organization [facility], Address [address] [place] [address] Phone Care Team Providers Care Anesthesiology Teacher Name Role Phone Natacha Olivas MD Primary Care Provider U bran Encounter Details Date Type Department Care Team (Late st Contact Info) Description 11/09/2021 Documentation Only [facility], [address] [place] [phone] Ana Browning PA Social History Tobacco Use [...] on filedocumented in this encounter Care Teams Anesthesiology Teacher Relationship Specialty Start Date End Date Natacha Olivas MD PCP - General 12/24/18 documented as of this encounter
--- OUTSIDE RECORDS SUMMARY | 2024-04-15 16:28 | XMS_ITS | Encounter Summary ---
Author Organization [employer] Address [address] [facility] 7t [place] [address] Care Team Providers Care Rheumatology Specialist Name Role Phone Natacha Olivas MD Primary Care Provider [phone]- [phone] Rukhsana Penaloza PharmD Unavailable [phone]- [phone] Ebenezer Earl MD Unavailable [phone] Reason for Visit * Reason Onset Date Comments Durable Medical Equipment 10/26/2023 Encounter Details Date Type Department Care Team (Late st Contact Info) Description 10/26/2023 Telephone [facility] MEDICINE [address] [place] [address] Natacha Olivas MD [address] [place], [place] [phone] Durable Medical Equipment Social History Tobacco Use [...] any questions you can contact Abby at [phone]. documented in this encounter Plan of Treatment Upcoming Encounters Date Type Department Care Team (Late st Contact Info) Description 06/02/2024 9:45 AM EDT Office Visit [facility] MEDICINE [address] [place] [address] Natacha Olivas MD [address] [place] [address] documented as of this encounter Goals Goal [...] documented as of this encounter Care Teams Rheumatology Specialist Relationship Specialty Start Date End Date Natacha Olivas MD [address] [place] [address] PCP - General Family Medicine 09/05/13 Rukhsana Penaloza, PharmD [address] [place] [address] Pharmacist Internal Medicine 07/13/22 Ebenezer Earl MD [address] [place] [address] Urology 02/18/24 [facility] 08/08/23 Ember Krishnamurthy PA-C [facility] Endocrinology Endocrinology 02/18/24 documented as of this encounter
--- OUTSIDE RECORDS SUMMARY | 2024-04-15 16:28 | XMS_ITS | Encounter Summary ---
Author Organization [employer] Address [address] [facility] 7t [place] [address] Care Team Providers Care Neurology Physician Name Role Phone Natacha Olivas MD Primary Care Provider +1- [phone] Rukhsana Penaloza PharmD Unavailable [phone]- [phone] Ebenezer Earl MD Unavailable [phone] Reason for Visit * Reason Onset Date Comments Call Back Request 10/18/2023 Encounter Details Date Type Department Care Team (Late st Contact Info) Description 10/18/2023 Telephone [facility] [address] [place] [address] Natacha Olivas MD [address] [place], [place] [phone] Call Back Request Social History Tobacco Use [...] 10/18/2023 4:20 PM EDT TC placed to [facility] nurse Daryl to inform of pt [...] on insulin dosage. Please contact Daryl at [phone]. documented in this encounter Plan of Treatment Upcoming Encounters Date Type Department Care Team (Late st Contact Info) Description 06/02/2024 9:45 AM EDT Office Visit [facility] [address] [place] [address] Natacha Olivas MD [address] [place] [address] documented as of this encounter Goals Goal [...] documented as of this encounter Care Teams Neurology Physician Relationship Specialty Start Date End Date Natacha Olivas MD [address] [place] [address] PCP - General Family Medicine 09/05/13 Rukhsana Penaloza, PharmD [address] [place] [address] Pharmacist Internal Medicine 07/13/22 Ebenezer Earl MD [address] [place] [address] Urology 02/18/24 [facility] 08/08/23 Ember Krishnamurthy PA-C [facility] Endocrinology Endocrinology 02/18/24 documented as of this encounter
--- OUTSIDE RECORDS SUMMARY | 2024-04-15 16:28 | XMS_ITS | Encounter Summary ---
Author Organization [facility], Address [address] [place] [address] Phone Care Team Providers Care Plaster Form Maker Name Role Phone Natacha Olivas MD Primary Care Provider U bran Encounter Details Date Type Department Care Team (Late st Contact Info) Description 09/15/2019 Orders Only [facility] [address] [place] [address] Hakeem España MD Hypertensive heart and renal [...] (HCC) documented in this encounter Care Teams Plaster Form Maker Relationship Specialty Start Date End Date Natacha Olivas MD PCP - General 12/24/18 documented as of this encounter
--- OUTSIDE RECORDS SUMMARY | 2024-04-15 16:28 | XMS_ITS | Encounter Summary ---
Author Organization [employer] Address [address] [place] [address] 7t [place] [address] Care Team Providers Care Plumbing Hardware Assembler Name Role Phone Natacha Olivas MD Primary Care Provider +- [phone] Rukhsana Penaloza PharmD Unavailable [phone] Ebenezer Earl MD Unavailable [phone] Encounter Details Date Type Department Care Team (Late st Contact Info) Description 02/14/2022 Orders Only [facility] PEDS [address] [place] [address] Anais Holguin LPN Social History Tobacco Use [...] Description 06/02/2024 9:45 AM EDT Office Visit [facility]IC[facility] [address] [place] [address] Natacha Olivas MD [address] [place], [place] [phone] Pending Results Name Type Priority Associated Diagnoses [...] (08/31/2022 12:00 PM EDT) Color Urine Yellow [facility] Appearance Urine Clear [facility] PH 5.5 5.0 - 9.0 [facility] Glucose Urine UA >=1000(A) Negative mg/dL [facility] Urine Blood Negative Negative [facility] Specific [place] - Urine 1.020 1.005 - 1.025 [facility] Urine Protein 100 (2+)(A) Neg-Trace mg/dL [facility] Urine Ketones Negative Negative mg/dL [facility] Nitrite Urine Negative Negative [facility] Leukocyte Esterase Urine Negative Negative [facility] RBC Urine 0-2 0 - 2 /HPF [facility] Urine WBC 0-5 0 - 5 /HPF [facility] Urine Squamous Epithelial Cell 0-2 0 - 2 /HPF [facility] Urine Bacteria None Seen None Seen [facility] Hyaline Casts, Urine 0-2 0 - 2 /LPF [facility] 08/31/2022 12:0 0 PM EDT 08/31/2022 1:04 PM EDT [facility] External Provider LAB URI NE ORDERABLES Edited Result - Final Performing Organization Address City/[facility]/ZIP Co de Phone Number [facility] [address] [place] [address] [phone] * Lipid Panel, Standard (08/31/2022 11:45 AM EDT) Triglycerides 196 mg/dL [facility] Comment:Desirable Triglyceri de: less than 150 mg/dLBorderline High Triglyceride 150-199 mg/dLHigh Triglyceride: 200-499 mg/dLVery High Triglyceride: greater than or equal to 5OO mg/dL Cholesterol 114 mg/dL [facility] Comment:Desirable Cholestero l: less than 200 mg/dLBorderline High Cholesterol: 200-239 mg/dLHigh Cholesterol: greater than 239 mg/dL LDL Cholesterol Calculated 39 mg/dl [facility] Comment:Desirable LDL: less than 100 mg/dLNear Optimal/Above Optimal LDL: 110- 129 mg/dLBorderline High LDL: 130-159 mg/dLHigh LDL: 160-189 mg/dLVery High LDL: greater than or equal to 190 mg/dL HDL Cholesterol 36 mg/dL [facility] Comment:Desirable HDL: great er than 40 mg/dL Note: This HDL assay may give artificially low results in patients with liver disease. 08/31/2022 11:4 5 AM EDT 08/31/2022 1:14 PM EDT [facility] External Provider LAB BLO OD ORDERABLES Final Result Performing Organization Address City/[facility]/ZIP Co de Phone Number [facility] [address] [place] [address] [phone] * (ABNORMAL) Basic Metabolic Panel (08/31/2022 11:45 AM EDT) Sodium 144 135 - 145 mmol/L [facility] Potassium 5.1 3.3 - 5.1 mmol/L [facility] Chloride 113(H) 96 - 108 mmol/L [facility] Carbon Dioxide 22 22 - 29 mmol/L [facility] Anion Gap 14 12 - 20 [facility] Urea Nitrogen (BUN) 33(H) 9 - 16 mg/dL [facility] Creatinine, Serum 2.15(H) 0.5 - 1.4 mg/dL [facility] Estimated Glomerular Filt Rate 30 [facility] Comment:NOTE: For -Am erican individuals, multiply the result by 1.210.Chronic Kidney Disease: Estimated GFR < 60 mL/min/1.28x8Kntpvc Kidney Disease: Estimated GFR < 15 mL/min/1.73m2 Glucose 138(H) 60 - 115 mg/dL [facility] Calcium 10.4(H) 8.4 - 10.2 mg/dL [facility] 08/31/2022 11:4 5 AM EDT 08/31/2022 1:14 PM EDT us [facility] External Provider LAB BLO OD ORDERABLES Final Result [facility] [address] [place] [address] [phone] * (ABNORMAL) CBC auto differential (08/31/2022 11:45 AM EDT) White Blood Count 6.5 4.8 - 10.8 X10*3/uL [facility] Red Blood Count 5.13 4.60 - 5.80 X10*6/uL [facility] Hemoglobin 14.0 14.0 - 18.0 g/dl [facility] Hematocrit 44.6 42.0 - 52.0 % [facility] Mean Corpuscular Volume 86.9 80.0 - 98.0 fL [facility] Mean Corpuscular Hemoglobin 27.3 27.0 - 33.0 pg [facility] Mean Corpuscular HGB Conc 31.4 31.0 - 36.0 g/dl [facility] Red Cell Distribution Width 15.8 11.0 - 16.0 % [facility] Platelet Count 173 160 - 400 X10*3/uL [facility] Mean Platelet Volume 11.1 9.4 - 12.4 fL [facility] Neutrophils Percent Auto 63.8 45 - 73 % [facility] Imm Gran Pct Auto 0.8(H) 0.0 - 0.4 % [facility] Lymphocytes Percent Auto 24.1 20 - 40 % [facility] Monocytes Percent Auto 8.2 2 - 11 % [facility] Eosinophils Percent Auto 2.6 0 - 4 % [facility] Basophils Percent Auto 0.5 0 - 2 % [facility] NRBC Pct Auto 0.0 0.0 - 0.2 /100WBC [facility] Neutrophils Absolute Auto 4.1 2.0 - 8.3 x10*3/uL [facility] Imm Gran Abs Auto 0.05(H) 0.00 - 0.03 X10*3/uL [facility] Lymphocytes Absolute Auto 1.6 1.2 - 4.9 X10*3/uL [facility] Monocytes Absolute Auto 0.5 0.1 - 1.2 X10*3/uL [facility] Eosinophils Absolute Auto 0.2 0.0 - 0.4 X10*3/uL [facility] Basophils Absolute Auto 0.0 0.0 - 0.2 X10*3/uL [facility] NRBC Abs Auto 0.000 0.0 - 0.012 X10*3/uL [facility] 08/31/2022 11:4 5 AM EDT 08/31/2022 1:14 PM EDT us [facility] External Provider LAB BLO OD ORDERABLES Final Result [facility] [address] [place] [address] [phone] * Hemoglobin A1c (08/31/2022 11:45 AM EDT) Hemoglobin A1c 6.8 % [facility] Comment:Hemoglobin A1C Refer ence Range Adults: 4.8 - 6.0 % Non diabetic: < 6.0 % Goal: < 7.0 %Additional Action Suggested: > 8.0 %Note: Hemoglobin A1c results are invalid for patients with abnormal amounts of HbF. Blood transfusions may impact the HbA1c concentration in the patient sample. Estimated Average Glucose 148 mg/dL [facility] Comment:eAG = Estimated ave rage glucose which is %A1C expressed asaverage glucose, using the formula of the T6J-GbchsrfTvaqptv Glucose study (ADAG), Diabetes Care, Vol.31,#8,Sep. 2007 08/31/2022 11:4 5 AM EDT 08/31/2022 1:14 PM EDT [facility] External Provider LAB BLO OD ORDERABLES Final Result Performing Organization Address [facility] Co de Phone Number [facility] [address] [place] [address] [phone] * (ABNORMAL) Glucose, Whole Blood (07/11/2022 8:40 AM EDT) Glucose, Whole Blood 203(H) 60 - 115 mg/dL [facility] Comment:METER #: [id number] Testing performed in the Endocrinology Department [address] , [address]. 07/11/2022 8:40 AM EDT 07/11/2022 8:43 AM EDT [facility] External Provider LAB BLO OD ORDERABLES Final Result Performing Organization Address [facility]/ZIP Co de Phone Number [facility] [address] [place] [address] [phone] * (ABNORMAL) Glucose, Whole Blood (03/29/2022 9:08 AM EST) Glucose, Whole Blood 139(H) 60 - 115 mg/dL [facility] Comment:METER #: [id number] 5Testing performed in the Endocrinology Department [address] , [address], [facility]. 03/29/2022 9:08 AM EST 03/29/2022 9:12 AM EST [facility] External Provider LAB BLO OD ORDERABLES Final Result [facility] [address] [place] [address] [phone] documented in this encounter Visit Diagnoses Not on filedocumented in this encounter Care Teams Plumbing Hardware Assembler Relationship Specialty Start Date End Date Natacha Olivas MD [address] [place] [address] PCP - General Family Medicine 09/05/13 Rukhsana Penaloza PharmD [address] [place] [address] Pharmacist Internal Medicine 07/13/22 Ebenezer Earl MD [address] [place] [address] Urology [facility] Ember Krishnamurthy PA-C [facility] Endocrinology Endocrinology 02/18/24 documented as of this encounter
--- OUTSIDE RECORDS SUMMARY | 2024-04-15 16:28 | XMS_ITS | Encounter Summary ---
Author Organization [employer] Address [address] [facility] 7t [place] [address] Care Team Providers Care Welder Gas Automatic Name Role Phone Natacha Olivas MD Primary Care Provider +- [phone] Rukhsana Penaloza PharmD Unavailable [phone] Ebenezer Earl MD Unavailable [phone] Encounter Details Date Type Department Care [...] 06/02/2024 9:45 AM EDT Office Visit [facility] MEDICINE [address] [place] [address] Natacha Olivas MD [address] [place] [phone] documented as of this encounter Goals Goal [...] documented as of this encounter Care Teams Welder Gas Automatic Relationship Specialty Start Date End Date Natacha Olivas MD [address] [place] [phone] PCP - General Family Medicine 09/05/13 Rukhsana Penaloza, HiltonD [address] [place] [address] Pharmacist Internal Medicine 07/13/22 Ebenezer Earl MD [address] [place] [address] Urology 02/18/24 [facility] 08/08/23 Ember Krishnamurthy PA-C [facility] Endocrinology Endocrinology 02/18/24 documented as of this encounter
--- OUTSIDE RECORDS SUMMARY | 2024-04-15 16:28 | XMS_ITS | Encounter Summary ---
Author Organization [email or web address] Address [address] [place] [address] Care Team Providers Care Feed Handler Name Role Phone Steven Saez MD Primary Care Provider [phone] Encounter Details Date Type Department Care Team (Late st Contact Info) Description 02/29/[address] [facility] - Main Lab [address] [place] [address] Steven Saez MD [address] [place] [address], [phone] Essential (primary) hypertension; Type 2 diabetes [...] CBC auto differential (02/29/2024 9:02 AM EST) [facility] WBC 6.5 4.8 - 10.8 K/mcL LAB HEMETOLOGY METHOD 02/29/2024 11:51 AM [facility] RBC 4.20(L) 4.50 - 5.50 M/mcL LAB HEMETOLOGY METHOD 02/29/2024 11:51 AM [facility] Hemoglobin 10.9(L) 13.5 - 17.5 g/dL LAB HEMETOLOGY METHOD 02/29/2024 11:51 AM [facility] Hematocrit 36.0(L) 42.0 - 54.0 % LAB HEMETOLOGY METHOD 02/29/2024 11:51 AM [facility] MCV 85.1 79.0 - 98.0 FL LAB HEMETOLOGY METHOD 02/29/2024 11:51 AM [facility] MCH 25.8(L) 27.0 - 32.0 pcg LAB HEMETOLOGY METHOD 02/29/2024 11:51 AM [facility] MCHC 30.3(L) 32.0 - 37.0 g/dL LAB HEMETOLOGY METHOD 02/29/2024 11:51 AM [facility] RDW 16.3(H) 11.0 - 15.0 % LAB HEMETOLOGY METHOD 02/29/2024 11:51 AM [facility] Platelets 383 130 - 400 K/mcL LAB HEMETOLOGY METHOD 02/29/2024 11:51 AM [facility] MPV 10.1 7.0 - 11.0 FL LAB HEMETOLOGY METHOD 02/29/2024 11:51 AM [facility] NRBC 0.0 <1.0 % LAB HEMETOLOGY METHOD 02/29/2024 11:51 AM [facility] NRBC Absolute 0.00 <0.10 K/mcL LAB HEMETOLOGY METHOD 02/29/2024 11:51 AM [facility] Neutrophils Relative 68.3 % LAB HEMETOLOGY METHOD 02/29/2024 11:51 AM [facility] Lymphocytes Relative 20.4 % LAB HEMETOLOGY METHOD 02/29/2024 11:51 AM [facility] Monocytes Relative 6.1 % LAB HEMETOLOGY METHOD 02/29/2024 11:51 AM [facility] Eosinophils Relative 4.1 % LAB HEMETOLOGY METHOD 02/29/2024 11:51 AM [facility] Basophils Relative 0.5 % LAB HEMETOLOGY METHOD 02/29/2024 11:51 AM [facility] Immature Granulocytes Relative 0.6 % LAB HEMETOLOGY METHOD 02/29/2024 11:51 AM [facility] Neutrophils Absolute 4.45 1.50 - 7.00 K/mcL LAB HEMETOLOGY METHOD 02/29/2024 11:51 AM [facility] Lymphocytes Absolute 1.33 1.00 - 5.00 K/mcL LAB HEMETOLOGY METHOD 02/29/2024 11:51 AM [facility] Monocytes Absolute 0.40 0.20 - 1.00 K/mcL LAB HEMETOLOGY METHOD 02/29/2024 11:51 AM [facility] Eosinophils Absolute 0.27 0.00 - 0.50 K/mcL LAB HEMETOLOGY METHOD 02/29/2024 11:51 AM EST [facility] Basophils Absolute 0.03 0.00 - 0.20 K/[facility] LAB HEMETOLOGY METHOD 02/29/2024 11:51 AM EST [facility] Immature Granulocytes Absolute 0.04(H) 0.00 - 0.03 K/[facility] LAB HEMETOLOGY METHOD 02/29/2024 11:51 AM EST [facility] Blood Venous blood specimen / Unknown Venipuncture / Unknown 02/29/2024 9:02 AM EST 02/29/2024 11:24 AM EST us Steven Saez MD LAB BLOOD ORDERABLES Final Resul t Performing Organization Address [facility]/ZIP Co de Phone Number [facility] [address] [place] [address], [place] [phone] * (ABNORMAL) Hemoglobin A1c (02/29/2024 9:02 AM EST) Hemoglobin A1C 8.3(H) <6.5 % LAB CHEMISTRY METHOD 02/29/2024 2:01 PM EST [facility] Mean Bld Glu Estim. 192 mg/dL LAB CHEMISTRY METHOD 02/29/2024 2:01 PM [facility] Blood Venous blood specimen / Unknown Venipuncture / Unknown 02/29/2024 9:02 AM EST 02/29/2024 11:24 AM EST us Steven Saez MD LAB BLOOD ORDERABLES Final Resul t [facility] [address] [place] [address], [place] [phone] * (ABNORMAL) Comprehensive metabolic panel (02/29/2024 9:02 AM EST) Sodium 139 133 - 145 mmol/L LAB CHEMISTRY METHOD 02/29/2024 1:00 PM [facility] Potassium 4.4 3.5 - 5.5 mmol/L LAB CHEMISTRY METHOD 02/29/2024 1:00 PM [facility] Chloride 107 96 - 110 mmol/L LAB CHEMISTRY METHOD 02/29/2024 1:00 PM [facility] CO2 26 21 - 32 mmol/L LAB CHEMISTRY METHOD 02/29/2024 1:00 PM [facility] Anion Gap 6 3 - 11 LAB CHEMISTRY METHOD 02/29/2024 1:00 PM [facility] Glucose 147(H) 70 - 100 mg/dL LAB CHEMISTRY METHOD 02/29/2024 1:00 PM [facility] BUN 27(H) 5 - 25 mg/dL LAB CHEMISTRY METHOD 02/29/2024 1:00 PM [facility] Creatinine 2.05(H) 0.70 - 1.30 mg/dL LAB CHEMISTRY METHOD 02/29/2024 1:00 PM [facility] eGFR 33(L) >=60 mL/min/1. 73m2 LAB CHEMISTRY METHOD 02/29/2024 1:00 PM [facility] Comment:Calculation based on the??Chronic Kidney Disease Epidemiology Collaboration (CKD-EPI) equation refit??without adjustment for race. BUN/Creatinine Ratio 13.2 LAB CHEMISTRY METHOD 02/29/2024 1:00 PM [facility] Calcium 8.9 8.5 - 10.5 mg/dL LAB CHEMISTRY METHOD 02/29/2024 1:00 PM [facility] AST (SGOT) 9(L) 10 - 42 unit/L LAB CHEMISTRY METHOD 02/29/2024 1:00 PM [facility] ALT (SGPT) 9(L) 10 - 60 unit/L LAB CHEMISTRY METHOD 02/29/2024 1:00 PM [facility] Alkaline Phosphatase 98 42 - 121 unit/L LAB CHEMISTRY METHOD 02/29/2024 1:00 PM EST [facility] Total Protein 7.2 6.0 - 8.0 g/dL LAB CHEMISTRY METHOD 02/29/2024 1:00 PM EST [facility] Albumin 2.5(L) 3.2 - 5.0 g/dL LAB CHEMISTRY METHOD 02/29/2024 1:00 PM EST [facility] Total Bilirubin 0.3 0.0 - 1.4 mg/dL LAB CHEMISTRY METHOD 02/29/2024 1:00 PM EST [facility] Blood Venous blood specimen / Unknown Venipuncture / Unknown 02/29/2024 9:02 AM EST 02/29/2024 11:24 AM EST us Steven Saez MD LAB BLOOD ORDERABLES Final Resul t [facility] [address] [place] [address], documented in this encounter Visit Diagnoses Diagnosis Essential (primary) hypertension Unspecified essential hypertension Type 2 diabetes mellitus without complications (CMS/HCC) documented in this encounter Care Teams Feed Handler Relationship Specialty Start Date End Date Steven Saez MD [address] [place] [address], [phone] PCP - General Family Medicine 02/29/24 documented as of this encounter
--- OUTSIDE RECORDS SUMMARY | 2024-04-15 16:28 | XMS_ITS | Encounter Summary ---
Author Organization [employer] Address [address] [place] [address] 7t [place] [address] Care Team Providers Care Wellness Ambassador Name Role Phone Natacha Olivas MD Primary Care Provider +- [phone] Rukhsana Penaloza PharmD Unavailable [phone] Ebenezer Earl MD Unavailable [phone] Encounter Details Date Type Department Care Team ([facility] st Contact Info) Description 12/11/2023 Telephone [facility] [address] [place] [address] Radha Avila PharmD [address] [place] [address] Social History Tobacco Use Types Packs/Day Years [...] the past 12 months, has t he [employer], gas, oil or water [employer] threatened to shut off services in your [...] daughter calling in regards to message below lyric writer did cancel appt * Telephone Encounter - Radha Avila PharmD - 12/11/2023 11:06 AM EDT Patient's daughter reports that they are unable to make upcoming HDF follow up appointment on 12/12/2023. Please assist in rescheduling. documented in this encounter Plan of Treatment Upcoming Encounters Date Type Department Care Team (Late st Contact Info) Description 06/02/2024 9:45 AM EDT Office Visit [facility] [address] [place] [address] Natacha Olivas MD [address] [place] [address] documented as of this encounter [...] documented as of this encounter Care Teams Wellness Ambassador Relationship Specialty Start Date End Date Natacha Olivas MD [address] [place] [address] PCP - General Family Medicine 09/05/13 Rukhsana Penaloza, PharmD [address] [place] [address] Pharmacist Internal Medicine 07/13/22 Ebenezer Earl MD [address] [place] [address] Urology 02/18/24 [facility] 08/08/23 Ember Krishnamurthy PA-C [facility] Endocrinology Endocrinology 02/18/24 documented as of this encounter
--- OUTSIDE RECORDS SUMMARY | 2024-04-15 16:28 | XMS_ITS | Encounter Summary ---
Author Organization [employer] Address [address] [place] [address] 7t [place] [address] Care Team Providers Care Union Laborer Name Role Phone Natacha Olivas MD Primary Care Provider +- [phone] Rukhsana Penaloza PharmD Unavailable [phone] Ebenezer Earl MD Unavailable [phone] Encounter Details Date Type Department Care Team (Late st Contact Info) Description 12/11/[address] [facility] MEDICINE [address] [place] [address] Radha Avila PharmD [address] [place] [address] Social History Tobacco Use Types Packs/Day Years [...] the past 12 months, has t he [employer], gas, oil or water company threatened to [...] 06/02/2024 9:45 AM EDT Office Visit [facility]INE [address] [place] [address] Natacha Olivas MD [address] [place] [address] documented as of this encounter Goals Goal [...] documented as of this encounter Care Teams Union Laborer Relationship Specialty Start Date End Date Natacha Olivas MD [address] [place] [address] PCP - General Family Medicine 09/05/13 Rukhsana Penaloza, PharmD [address] [place] [address] Pharmacist Internal Medicine 07/13/22 Ebenezer Earl MD [address] [place] [address] Urology 02/18/24 [facility] 08/08/23 Ember Krishnamurthy PA-C [facility] Endocrinology Endocrinology 02/18/24 documented as of this encounter
--- OUTSIDE RECORDS SUMMARY | 2024-04-15 16:28 | XMS_ITS | Encounter Summary ---
Author Organization [facility], Address [address] [place] [address] Phone Care Team Providers Care Concrete Pavement Installer Name Role Phone Natacha Olivas MD Primary Care Provider U bran Encounter Details Date Type Department Care Team (Late st Contact Info) Description 11/01/2021 Documentation Only [facility], [address] [place] [phone] Ana Browning PA Social History Tobacco Use [...] on filedocumented in this encounter Care Teams Concrete Pavement Installer Relationship Specialty Start Date End Date Natacha Olivas MD PCP - General 12/24/18 documented as of this encounter
--- OUTSIDE RECORDS SUMMARY | 2024-04-15 16:28 | XMS_ITS | Encounter Summary ---
Author Organization [employer] Address [address] [place] [address] 7t [place] [address] Care Team Providers Care Roustabout Head Name Role Phone Natacha Olivas MD Primary Care Provider + [phone] Rukhsana Penaloza PharmD Unavailable Ebenezer Earl MD Unavailable [phone] Encounter Details Date Type Department Care Team (Late st Contact Info) Description 03/05/2022 Abstract [facility] MEDICINE [address] [place] [address] Natacha Olivas MD [address] [place] [address] [phone] Social History Tobacco Use Types Packs/Day Years [...] Office Visit [facility] MEDICINE [address] [place] [address] [phone] Natacha Olivas MD [address] [place] [address] [phone] documented as of this encounter Procedures Procedure Name Priority Date/Time Associated Diagnosis Comments HM COLONOSCOPY Routine 01/06/2021 documented in this encounter Results * Colonoscopy (01/06/2021) Colonoscopy tubular adenoma with Dr. Sands us Historical Provider HEALTH MAINTENANCE Final Result documented in this encounter Visit Diagnoses Not on filedocumented in this encounter Care Teams Roustabout Head Relationship Specialty Start Date End Date Natacha Olivas MD [address] [place] [address] PCP - General Family Medicine 09/05/13 Rukhsana Penaloza, HiltonD [address] [place] [address] Pharmacist Internal Medicine 07/13/22 Ebenezer Earl MD [address] [place] [address] Urology 02/18/24 [facility] 08/08/23 Ember Krishnamurthy PA-C [facility] Endocrinology Endocrinology 02/18/24 documented as of this encounter
--- OUTSIDE RECORDS SUMMARY | 2024-04-15 16:28 | XMS_ITS | Clinical Summary ---
Author Organization [facility] Address [address] [place] [phone] Phone Care Team Providers Care Supervisor Endless Track Vehicle Name Role Phone Steven Saez MD Primary Care Provider [phone] Encounters Date Type Department Care Team Description 03/18/2024 Lab Requisition [facility] - Main Lab [address] [place] [phone] Steven Saez MD Chronic kidney disease, unspecified 02/29/2024 Lab Requisition [facility] - Main Lab [address] [place] [phone] Steven Saez MD Essential (primary) hypertension; Type [...] K/mcL LAB HEMETOLOGY METHOD 03/19/2024 12:29 PM [facility] RBC 4.50 4.50 - 5.50 M/mcL LAB HEMETOLOGY METHOD 03/19/2024 12:29 PM [facility] Hemoglobin 11.8(L) 13.5 - 17.5 g/dL LAB HEMETOLOGY METHOD 03/19/2024 12:29 PM [facility] Hematocrit 39.0(L) 42.0 - 54.0 % LAB HEMETOLOGY METHOD 03/19/2024 12:29 PM [facility] MCV 86.9 79.0 - 98.0 FL LAB HEMETOLOGY METHOD 03/19/2024 12:29 PM EST [facility] MCH 26.3(L) 27.0 - 32.0 pcg LAB HEMETOLOGY METHOD 03/19/2024 12:29 PM [facility] MCHC 30.3(L) 32.0 - 37.0 g/dL LAB HEMETOLOGY METHOD 03/19/2024 12:29 PM EST [facility] RDW 16.0(H) 11.0 - 15.0 % LAB HEMETOLOGY METHOD 03/19/2024 12:29 PM EST [facility] Platelets 239 130 - 400 K/mcL LAB HEMETOLOGY METHOD 03/19/2024 12:29 PM [facility] MPV 10.1 7.0 - 11.0 FL LAB HEMETOLOGY METHOD 03/19/2024 12:29 PM EST [facility] NRBC 0.0 <1.0 % LAB HEMETOLOGY METHOD 03/19/2024 12:29 PM [facility] NRBC Absolute 0.00 <0.10 K/mcL LAB HEMETOLOGY METHOD 03/19/2024 12:29 PM [facility] Blood Venous blood specimen / Unknown Venipuncture / Unknown 03/19/2024 7:28 AM EST 03/19/2024 11:08 AM EST us Steven Saez MD LAB BLOOD ORDERABLES Final Resul t [facility] [address] [place] [address], * (ABNORMAL) Basic metabolic panel (03/19/2024 7:28 AM EST) Sodium 137 133 - 145 mmol/L LAB CHEMISTRY METHOD 03/19/2024 12:35 PM EST [facility] Potassium 3.9 3.5 - 5.5 mmol/L LAB CHEMISTRY METHOD 03/19/2024 12:35 PM [facility] Chloride 103 96 - 110 mmol/L LAB CHEMISTRY METHOD 03/19/2024 12:35 PM [facility] CO2 29 21 - 32 mmol/L LAB CHEMISTRY METHOD 03/19/2024 12:35 PM [facility] Anion Gap 5 3 - 11 LAB CHEMISTRY METHOD 03/19/2024 12:35 PM [facility] Glucose 139(H) 70 - 100 mg/dL LAB CHEMISTRY METHOD 03/19/2024 12:35 PM [facility] BUN 23 5 - 25 mg/dL LAB CHEMISTRY METHOD 03/19/2024 12:35 PM [facility] Creatinine 1.89(H) 0.70 - 1.30 mg/dL LAB CHEMISTRY METHOD 03/19/2024 12:35 PM [facility] eGFR 36(L) >=60 mL/min/1. 73m2 LAB CHEMISTRY METHOD 03/19/2024 12:35 PM [facility] Comment:Calculation based on the??Chronic Kidney Disease Epidemiology Collaboration (CKD-EPI) equation refit??without adjustment for race. BUN/Creatinine Ratio 12.2 LAB CHEMISTRY METHOD 03/19/2024 12:35 PM [facility] Calcium 9.0 8.5 - 10.5 mg/dL LAB CHEMISTRY METHOD 03/19/2024 12:35 PM [facility] Blood Venous blood specimen / Unknown Venipuncture / Unknown 03/19/2024 7:28 AM EST 03/19/2024 11:08 AM EST us Steven Saez MD LAB BLOOD ORDERABLES Final Resul t [facility] [address] [place] [address], [place] [phone] * (ABNORMAL) CBC auto differential (02/29/2024 9:02 AM EST) [facility] WBC 6.5 4.8 - 10.8 K/mcL LAB HEMETOLOGY METHOD 02/29/2024 11:51 AM [facility] RBC 4.20(L) 4.50 - 5.50 M/mcL LAB HEMETOLOGY METHOD 02/29/2024 11:51 AM [facility] Hemoglobin 10.9(L) 13.5 - 17.5 g/dL LAB HEMETOLOGY METHOD 02/29/2024 11:51 AM [facility] Hematocrit 36.0(L) 42.0 - 54.0 % LAB HEMETOLOGY METHOD 02/29/2024 11:51 AM [facility] MCV 85.1 79.0 - 98.0 FL LAB HEMETOLOGY METHOD 02/29/2024 11:51 AM [facility] MCH 25.8(L) 27.0 - 32.0 pcg LAB HEMETOLOGY METHOD 02/29/2024 11:51 AM [facility] MCHC 30.3(L) 32.0 - 37.0 g/dL LAB HEMETOLOGY METHOD 02/29/2024 11:51 AM [facility] RDW 16.3(H) 11.0 - 15.0 % LAB HEMETOLOGY METHOD 02/29/2024 11:51 AM [facility] Platelets 383 130 - 400 K/mcL LAB HEMETOLOGY METHOD 02/29/2024 11:51 AM [facility] MPV 10.1 7.0 - 11.0 FL LAB HEMETOLOGY METHOD 02/29/2024 11:51 AM [facility] NRBC 0.0 <1.0 % LAB HEMETOLOGY METHOD 02/29/2024 11:51 AM [facility] NRBC Absolute 0.00 <0.10 K/mcL LAB HEMETOLOGY METHOD 02/29/2024 11:51 AM [facility] Neutrophils Relative 68.3 % LAB HEMETOLOGY METHOD 02/29/2024 11:51 AM [facility] Lymphocytes Relative 20.4 % LAB HEMETOLOGY METHOD 02/29/2024 11:51 AM [facility] Monocytes Relative 6.1 % LAB HEMETOLOGY METHOD 02/29/2024 11:51 AM [facility] Eosinophils Relative 4.1 % LAB HEMETOLOGY METHOD 02/29/2024 11:51 AM [facility] Basophils Relative 0.5 % LAB HEMETOLOGY METHOD 02/29/2024 11:51 AM [facility] Immature Granulocytes Relative 0.6 % LAB HEMETOLOGY METHOD 02/29/2024 11:51 AM [facility] Neutrophils Absolute 4.45 1.50 - 7.00 K/mcL LAB HEMETOLOGY METHOD 02/29/2024 11:51 AM [facility] Lymphocytes Absolute 1.33 1.00 - 5.00 K/mcL LAB HEMETOLOGY METHOD 02/29/2024 11:51 AM [facility] Monocytes Absolute 0.40 0.20 - 1.00 K/mcL LAB HEMETOLOGY METHOD 02/29/2024 11:51 AM [facility] Eosinophils Absolute 0.27 0.00 - 0.50 K/mcL LAB HEMETOLOGY METHOD 02/29/2024 11:51 AM [facility] Basophils Absolute 0.03 0.00 - 0.20 K/mcL LAB HEMETOLOGY METHOD 02/29/2024 11:51 AM [facility] Immature Granulocytes Absolute 0.04(H) 0.00 - 0.03 K/mcL LAB HEMETOLOGY METHOD 02/29/2024 11:51 AM EST [facility] Blood Venous blood specimen / Unknown Venipuncture / Unknown 02/29/2024 9:02 AM EST 02/29/2024 11:24 AM EST Steven Saez MD LAB BLOOD ORDERABLES Final Resul t Performing Organization Address [facility]/ZIP Co de Phone Number [facility] [address] [place] [address], [place] [phone] * (ABNORMAL) Hemoglobin A1c (02/29/2024 9:02 AM EST) Pathologist [facility] Hemoglobin A1C 8.3(H) <6.5 % LAB CHEMISTRY METHOD 02/29/2024 2:01 PM [facility] Mean Bld Glu Estim. 192 mg/dL LAB CHEMISTRY METHOD 02/29/2024 2:01 PM [facility] Blood Venous blood specimen / Unknown Venipuncture / Unknown 02/29/2024 9:02 AM EST 02/29/2024 11:24 AM EST us Steven Saez MD LAB BLOOD ORDERABLES Final Resul t Performing Organization Address [facility]/ZIP Co de Phone Number [facility] [address] [place] [address], [place] [phone] * (ABNORMAL) Comprehensive metabolic panel (02/29/2024 9:02 AM EST) [facility] Sodium 139 133 - 145 mmol/L LAB CHEMISTRY METHOD 02/29/2024 1:00 PM EST [facility] Potassium 4.4 3.5 - 5.5 mmol/L LAB CHEMISTRY METHOD 02/29/2024 1:00 PM [facility] Chloride 107 96 - 110 mmol/L LAB CHEMISTRY METHOD 02/29/2024 1:00 PM [facility] CO2 26 21 - 32 mmol/L LAB CHEMISTRY METHOD 02/29/2024 1:00 PM [facility] Anion Gap 6 3 - 11 LAB CHEMISTRY METHOD 02/29/2024 1:00 PM [facility] Glucose 147(H) 70 - 100 mg/dL LAB CHEMISTRY METHOD 02/29/2024 1:00 PM [facility] BUN 27(H) 5 - 25 mg/dL LAB CHEMISTRY METHOD 02/29/2024 1:00 PM [facility] Creatinine 2.05(H) 0.70 - 1.30 mg/dL LAB CHEMISTRY METHOD 02/29/2024 1:00 PM [facility] eGFR 33(L) >=60 mL/min/1. 73m2 LAB CHEMISTRY METHOD 02/29/2024 1:00 PM [facility] Comment:Calculation based on the??Chronic Kidney Disease Epidemiology Collaboration (CKD-EPI) equation refit??without adjustment for race. BUN/Creatinine Ratio 13.2 LAB CHEMISTRY METHOD 02/29/2024 1:00 PM [facility] Calcium 8.9 8.5 - 10.5 mg/dL LAB CHEMISTRY METHOD 02/29/2024 1:00 PM [facility] AST (SGOT) 9(L) 10 - 42 unit/L LAB CHEMISTRY METHOD 02/29/2024 1:00 PM [facility] ALT (SGPT) 9(L) 10 - 60 unit/L LAB CHEMISTRY METHOD 02/29/2024 1:00 PM [facility] Alkaline Phosphatase 98 42 - 121 unit/L LAB CHEMISTRY METHOD 02/29/2024 1:00 PM [facility] Total Protein 7.2 6.0 - 8.0 g/dL LAB CHEMISTRY METHOD 02/29/2024 1:00 PM [facility] Albumin 2.5(L) 3.2 - 5.0 g/dL LAB CHEMISTRY METHOD 02/29/2024 1:00 PM [facility] Total Bilirubin 0.3 0.0 - 1.4 mg/dL LAB CHEMISTRY METHOD 02/29/2024 1:00 PM EST [facility] Blood Venous blood specimen / Unknown Venipuncture / Unknown 02/29/2024 9:02 AM EST 02/29/2024 11:24 AM EST us Steven Saez MD LAB BLOOD ORDERABLES Final Resul t [facility] [address] [place] [address], [place] [phone] from Last 3 Months Insurance MEDICAID - [place] MEDICARE Advance Directives Documents on File Type Date Recorded Patient Platen Builder Up Expl anation Health Care Decision (hx) 11/15/2023 HE ALTH CARE PROXY Care Teams Supervisor Endless Track Vehicle Relationship Specialty Start Date End Date Steven Saez MD [address] [facility] [address] [place], [phone] PCP - General Family Medicine 02/29/24
--- OUTSIDE RECORDS SUMMARY | 2024-04-15 16:28 | XMS_ITS | Encounter Summary ---
Author Organization [facility], Address [address] [place] [address] Phone Care Team Providers Care Aircraft Communicator Name Role Phone Mammoth SpringNatacha badillo MD Primary Care Provider U bran Encounter Details Date Type Department Care Team (Late st Contact Info) Description 11/02/2020 Documentation Only [facility], [address] [place] [phone] Mando Lala MD [address] [place] [phone] Social History Tobacco Use Types Packs/Day Years [...] on filedocumented in this encounter Care Teams Aircraft Communicator Relationship Specialty Start Date End Date Mammoth SpringNatacha badillo MD PCP - General 12/24/18 documented as of this encounter
--- OUTSIDE RECORDS SUMMARY | 2024-04-15 16:28 | XMS_ITS | Encounter Summary ---
Author Organization [employer] Address [address] [place] [address] [address] [place] [address] Care Team Providers Care Hand Tube Winder Name Role Phone Natacha Olivas MD Primary Care Provider + [phone] Rukhsana Penaloza PharmD Unavailable [phone] Ebenezer Earl MD Unavailable [phone] Encounter Details Date Type Department Care Team (Latest Contact Info) Description 03/11/2019 Abstract [facility] CONVERSIONS Dental, Provider, DDS Social History [...] Description 06/02/2024 9:45 AM EDT Office Visit [facility] MEDICINE [address] [place] [address] Natacha Olivas MD [address] [place] [address] documented as of this encounter Visit Diagnoses Not on filedocumented in this encounter Care Teams Hand Tube Winder Relationship Specialty Start Date End Date Natacha Olivas MD [address] [place] [address] PCP - General Family Medicine 09/05/13 Rukhsana Penaloza, PharmD [address] [place] [address] Pharmacist Internal Medicine 07/13/22 Ebenezer Earl MD [address] [place] [address] Urology 02/18/24 [facility] 08/08/23 Ember Krishnamurthy PA-C [facility] Endocrinology Endocrinology 02/18/24 documented as of this encounter
--- OUTSIDE RECORDS SUMMARY | 2024-04-15 16:28 | XMS_ITS | Encounter Summary ---
Author Organization [facility] [employer] Address [address] [facility] 7t [place] [address] Care Team Providers Care Patient Service Coordinator Name Role Phone Natacha Olivas MD Primary Care Provider [phone] Rukhsana Penaloza PharmD Unavailable [phone] Ebenezer Earl MD Unavailable [phone] Reason for Visit * Reason Onset Date Comments FYI 12/07/2023 Call Back Request 12/07/2023 Encounter Details Date Type Department Care Team (Late st Contact Info) Description 12/07/2023 Telephone [facility] [address] [place] [address] Natacha Olivas MD [address] [place] [address] FYI; Call Back Request Social History Tobacco [...] 9:30 AM EDT TC placed to Elaina, nurse outreach case manager with [facility] who called with some concerns that have been observed in regards to the pt care. Elaina went to the pt home on Sunday with another TRANSIT MIXER OPERATOR and assessed that the pt has not [...] scheduled HDF appt on 12/12/23 with a TRANSIT MIXER OPERATOR resident and the pt was reminded of the importance of attending. Elaina notified that PCP willbe sent this message promptly to see what interventions can be ordered. * Telephone Encounter - Rebel Brewer - 12/11/2023 8:37 AM EDT Tc from Elaina the VNA at [facility] calling to add additional information in regards to the message below Elaina and a Wellness Coordinator evaluated patient and is requesting a swallow eval due to the 20 lbs weight for April Please call [phone] * Telephone Encounter - Pablo Pardo - [...] to further discuss. Please contact Elaina at [phone] documented in this encounter Plan of Treatment Upcoming Encounters Date Type Department Care Team (Late st Contact Info) Description 06/02/2024 9:45 AM EDT Office Visit [facility] [address] [place] [address] Natacha Olivas MD [address] [place] [address] documented as of this encounter Goals Goal [...] documented as of this encounter Care Teams Patient Service Coordinator Relationship Specialty Start Date End Date Natacha Olivas MD [address] [place] [address] PCP - General Family Medicine 09/05/13 Rukhsana Penaloza, HiltonD [address] [place] [address] Pharmacist Internal Medicine 07/13/22 Ebenezer Earl MD [address] [place] [address] Urology 02/18/24 [facility] 08/08/23 Ember Krishnamurthy PA-C [facility] Endocrinology Endocrinology 02/18/24 documented as of this encounter
--- OUTSIDE RECORDS SUMMARY | 2024-04-15 16:28 | XMS_ITS | Encounter Summary ---
Author Organization [employer] Address [address] [place] [address] Care Team Providers Care Cafeteria Cashier Name Role Phone Steven Saez MD Primary Care Provider [phone] Encounter Details Date Type Department Care Team (Late st Contact Info) Description 03/18/2024 Lab Requisition [facility] - Main Lab [address] [facility] [place] [address] Steven Saez MD [address] [place] [address], [phone] Chronic kidney disease, unspecified Social History [...] mmol/L LAB CHEMISTRY METHOD 03/19/2024 12:35 PM [facility] Potassium 3.9 3.5 - 5.5 mmol/L LAB CHEMISTRY METHOD 03/19/2024 12:35 PM [facility] Chloride 103 96 - 110 mmol/L LAB CHEMISTRY METHOD 03/19/2024 12:35 PM [facility] CO2 29 21 - 32 mmol/L LAB CHEMISTRY METHOD 03/19/2024 12:35 PM [facility] Anion Gap 5 3 - 11 LAB CHEMISTRY METHOD 03/19/2024 12:35 PM [facility] Glucose 139(H) 70 - 100 mg/dL LAB CHEMISTRY METHOD 03/19/2024 12:35 PM [facility] BUN 23 5 - 25 mg/dL LAB CHEMISTRY METHOD 03/19/2024 12:35 PM [facility] Creatinine 1.89(H) 0.70 - 1.30 mg/dL LAB CHEMISTRY METHOD 03/19/2024 12:35 PM [facility] eGFR 36(L) >=60 mL/min/1. 73m2 LAB CHEMISTRY METHOD 03/19/2024 12:35 PM [facility] Comment:Calculation based on the??Chronic Kidney Disease Epidemiology Collaboration (CKD-EPI) equation refit??without adjustment for race. BUN/Creatinine Ratio 12.2 LAB CHEMISTRY METHOD 03/19/2024 12:35 PM [facility] Calcium 9.0 8.5 - 10.5 mg/dL LAB CHEMISTRY METHOD 03/19/2024 12:35 PM [facility] Blood Venous blood specimen / Unknown Venipuncture / Unknown 03/19/2024 7:28 AM EST 03/19/2024 11:08 AM EST Steven Saez MD LAB BLOOD ORDERABLES Final Resul t [facility] [address] [place] [address], * (ABNORMAL) Complete blood count (03/19/2024 7:28 AM EST) WBC 5.5 4.8 - 10.8 K/mcL LAB HEMETOLOGY METHOD 03/19/2024 12:29 PM [facility] RBC 4.50 4.50 - 5.50 M/mcL LAB HEMETOLOGY METHOD 03/19/2024 12:29 PM [facility] Hemoglobin 11.8(L) 13.5 - 17.5 g/dL LAB HEMETOLOGY METHOD 03/19/2024 12:29 PM [facility] Hematocrit 39.0(L) 42.0 - 54.0 % LAB HEMETOLOGY METHOD 03/19/2024 12:29 PM [facility] MCV 86.9 79.0 - 98.0 FL LAB HEMETOLOGY METHOD 03/19/2024 12:29 PM [facility] MCH 26.3(L) 27.0 - 32.0 pcg LAB HEMETOLOGY METHOD 03/19/2024 12:29 PM [facility] MCHC 30.3(L) 32.0 - 37.0 g/dL LAB HEMETOLOGY METHOD 03/19/2024 12:29 PM [facility] RDW 16.0(H) 11.0 - 15.0 % LAB HEMETOLOGY METHOD 03/19/2024 12:29 PM [facility] Platelets 239 130 - 400 K/mcL LAB HEMETOLOGY METHOD 03/19/2024 12:29 PM [facility] MPV 10.1 7.0 - 11.0 FL LAB HEMETOLOGY METHOD 03/19/2024 12:29 PM EST [facility] NRBC 0.0 <1.0 % LAB HEMETOLOGY METHOD 03/19/2024 12:29 PM EST [facility] NRBC Absolute 0.00 <0.10 K/mcL LAB HEMETOLOGY METHOD 03/19/2024 12:29 PM EST [facility] Blood Venous blood specimen / Unknown Venipuncture / Unknown 03/19/2024 7:28 AM EST 03/19/2024 11:08 AM EST us Steven Saez MD LAB BLOOD ORDERABLES Final Resul t [facility] [address] [place] [address], [place] [phone] documented in this encounter Visit Diagnoses Diagnosis Chronic kidney disease, unspecified documented in this encounter Care Teams Cafeteria Cashier Relationship Specialty Start Date End Date Steven Saez MD [address] [place] [address] [address] [place], [address] PCP - General Family Medicine 02/29/24 documented as of this encounter
--- OUTSIDE RECORDS SUMMARY | 2024-04-15 16:28 | XMS_ITS | Encounter Summary ---
Author Organization [employer] Address [address] [facility] 7t [place] [address] Care Team Providers Care Packaging Technician Name Role Phone Natacha Olivas MD Primary Care Provider [phone] Rukhsana Penaloza PharmD Unavailable [phone] Ebenezer Earl MD Unavailable [phone] Reason for Visit * Reason Onset Date Comments Verbal order 04/11/2024 Encounter Details Date Type Department Care Team ([facility] st Contact Info) Description 04/11/2024 Telephone [facility] MED[facility]INE [address] [place] [address] Natacha Olivas MD [address] [place] [address] Verbal order Social History Tobacco Use Types [...] PM EST TC placed to Glenny with [facility] to give VO for pt to start physical therapy, occupational therapyan group home beginning on 04/12/2024. * Telephone Encounter - Cheli Powers - 04/11/2024 2:31 PM EST Tc from Glenny at [facility] requesting verbal orders for physical therapy occupations therapy and group home beginning tomorrow 04/12/24 Contact Glenny [phone] documented in this encounter Plan of Treatment Upcoming Encounters Date Type Department Care Team (Late st Contact Info) Description 06/02/2024 9:45 AM EDT Office Visit [facility] MED[facility] [address] [place], [place] [phone] Natacha Olivas MD [address] [place] [address] documented as of this encounter Goals Goal [...] documented as of this encounter Care Teams Packaging Technician Relationship Specialty Start Date End Date Natacha Olivas MD [address] [place] [address] PCP - General Family Medicine 09/05/13 Rukhsana Penaloza, PharmD [address] [place] [address] Pharmacist Internal Medicine 07/13/22 Ebenezer Earl MD [address] [place] [address] Urology [facility]/18/[facility] Ember Krishnamurthy PA-C [facility] Endocrinology Endocrinology 02/18/24 documented as of this encounter
--- OUTSIDE RECORDS SUMMARY | 2024-04-15 16:28 | XMS_ITS | Encounter Summary ---
Author Organization [employer] Address [address] [facility] 7t [place] [address] Care Team Providers Care Broke Beater Machine Operator Name Role Phone Natacha Olivas MD Primary Care Provider [phone] Rukshana Penaloza PharmD Unavailable [phone] Ebenezer Earl MD Unavailable [phone] Reason for Visit * Reason Onset Date Comments Recalls 03/17/2024 I book the appt on 06/02/24 for Physical. Encounter Details Date Type Department Care Team (Late st Contact Info) Description 03/17/2024 Telephone [facility] MEDICINE [address] [place] [address] Radha Brewer [place] Recalls May (I book [...] Description 06/02/2024 9:45 AM EDT Office Visit [facility] MEDICINE [address] [place] [address] Natacha Olivas MD [address] [place] [address] documented as of this encounter Goals Goal [...] documented as of this encounter Care Teams Broke Beater Machine Operator Relationship Specialty Start Date End Date Natacha Olivas MD [address] [place] [address] PCP - General Family Medicine 09/05/13 Rukhsana Penaloza PharmD [address] [place] [address] Pharmacist Internal Medicine 07/13/22 Ebenezer Earl MD [address] [place] [address] Urology 02/18/24 [facility] 08/08/23 Ember Krishnamurthy PA-C [facility] Endocrinology Endocrinology 02/18/24 documented as of this encounter
--- OUTSIDE RECORDS SUMMARY | 2024-04-15 16:28 | XMS_ITS | Encounter Summary ---
Author Organization [employer] Address [address] [facility] 7t [place] [address] Care Team Providers Care Frame Stylist Name Role Phone Natacha Olivas MD Primary Care Provider [phone] Rukhsana Penaloza PharmD Unavailable [phone] Ebenezer Earl MD Unavailable [phone] Reason for Visit * Reason Onset Date Comments FYI 06/11/2023 Encounter Details Date Type Department Care Team (Late st Contact Info) Description 06/11/2023 Telephone [facility] MEDICINE [address] [place] [address] Natacha Olivas MD [address] [place], [place] [phone] FYI Social History Tobacco Use Types Packs/Day [...] - 06/11/2023 1:33 PM EDT Tc from [facility] calling to advise provider pt had a fall on his left side. States ptis asymptomatic. documented in this encounter Plan of Treatment Upcoming Encounters Date Type Department Care Team (Late st Contact Info) Description 06/02/2024 9:45 AM EDT Office Visit [facility] MEDICINE [address] [place] [phone] Natacha Olivas MD [address] [place] [address] documented as of this encounter Goals Goal [...] documented as of this encounter Care Teams Frame Stylist Relationship Specialty Start Date End Date Natacha Olivas MD [address] [place] [address] PCP - General Family Medicine 09/05/13 Rukhsana Penaloza, HiltonD [address] [place] [address] Pharmacist Internal Medicine 07/13/22 Ebenezer Earl MD [address] [place] [address] Urology 02/18/24 [facility] 08/08/23 Ember Krishnamurthy PA-C [facility] Endocrinology Endocrinology 02/18/24 documented as of this encounter
--- OUTSIDE RECORDS SUMMARY | 2024-04-15 16:28 | XMS_ITS | Encounter Summary ---
Author Organization [employer] Address [address] [facility] [address] [place] [address] Care Team Providers Care Roadmaster Name Role Phone Natacha Olivas MD Primary Care Provider +- [phone] Rukhsana Penaloza PharmD Unavailable [phone] Ebenezer Earl MD Unavailable [phone] Encounter Details Date Type Department Care Team (Late st Contact Info) Description 02/21/2024 Abstract [facility] MEDICINE [address] [place] [address] Natacha Olivas MD [address] [place] [address] Social History Tobacco Use Types Packs/Day Years [...] the past 12 months, has t he [employer] gas, oil or water company threatened to [...] 06/02/2024 9:45 AM EDT Office Visit [facility] MEDICINE [address] [place] [phone] Natacha Olivas MD [address] [place] [phone] documented as of this encounter Goals Goal [...] documented as of this encounter Care Teams Roadmaster Relationship Specialty Start Date End Date Natacha Olivas MD [address] [place] [phone] PCP - General Family Medicine 09/05/13 Rukhsana Penaloza PharmD [address] [place] [address] Pharmacist Internal Medicine 07/13/22 Ebenezer Earl MD [address] [place] [address] Urology 02/18/24 [facility] 08/08/23 Ember Krishnamurthy PA-C [facility] Endocrinology Endocrinology 02/18/24 documented as of this encounter
--- OUTSIDE RECORDS SUMMARY | 2024-04-15 16:28 | XMS_ITS | Encounter Summary ---
Author Organization [email or web address] Address [address] [facility] [address] [place] [address] Care Team Providers Care Cna Ltc Name Role Phone Natacha Olivas MD Primary Care Provider +- [phone] Rukhsana Penaloza PharmD Unavailable [phone] Ebenezer Earl MD Unavailable [phone] Encounter Details Date Type Department Care Team (Late st Contact Info) Description 03/11/2024 Orders Only [facility] MEDICINE [address] [place] [address] Natacha Olivas MD [address] [place] [address] Social History Tobacco Use Types Packs/Day Years [...] the past 12 months, has t he [employer] gas, oil or water [employer] threatened to shut off services in your [...] Description 06/02/2024 9:45 AM EDT Office Visit [facility] MEDICINE [address] [place] [phone] Natacha Olivas MD [address] [place] [phone] documented as of this encounter Goals Goal [...] documented as of this encounter Care Teams Cna Ltc Relationship Specialty Start Date End Date Natacha Olivas MD [address] [place] [phone] PCP - General Family Medicine 09/05/13 Rukhsana Penaloza PharmD [address] [place] [address] Pharmacist Internal Medicine 07/13/22 Ebenezer Earl MD [address] [place] [address] Urology 02/18/24 [facility] 08/08/23 Ember Krishnamurthy PA-C [facility] Endocrinology Endocrinology 02/18/24 documented as of this encounter
--- OUTSIDE RECORDS SUMMARY | 2024-04-15 16:28 | XMS_ITS | Clinical Summary ---
Author Organization 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 90 tablet 3 11/02/19 24 Active furosemide (Lasix) 20 MG tabletIndications: Hypertensive heart and renal disease with (congestive) heart failure ([facility]) TAKE 1 TABLET BY MOUTH EVERY OTHER DAY IN THE MORNING 15 tablet 5 12/04/19 24 Active docusate sodium (Colace) 100 MG capsule Take 1 capsule by mouth 2 times daily. 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 Antiplatelet and atorvastatin held. -Patient is unable to use his left arm and leg -Evaluation HISTORICAL SITE GUIDE services by [facility]. -Casemanager is Anais Morillo [phone] 05/15/23 repots pt given number for transportation - rx for Left AFO for foot drop. Per pt it can go to [facility] in [place] or [facility] in [place] written 05/16/23 -swallow study 06/25/23 No laryngeal penetration or tracheal aspiration was observed during , g tube removed -multiple falls since discharged. Last discontinue from rehab 08/03/23 -referred to PT 01/23/24 Assessment & Plan (01/23/2024 10:29 AM EST): Right thalamic hemorrhagic stroke 02/11/23. Antiplatelet and atorvastatin held. -Patient is unable to use his left arm and leg -Evaluation HISTORICAL SITE GUIDE services by [facility]. -Casemanager is Anais Morillo [phone] [id number] 05/15/23 repots pt given number for transportation - rx for Left AFO for foot drop. Per pt it can go to [facility] in [place] or [facility] in [place] written 05/16/23 -swallow study 06/25/23 No laryngeal [...] neurosurgery appointment (Dr Padilla December 03 at [facility]) to determine if aspirin should be [...] neurosurgery appointment (Dr Padilla December 03 at [facility]) to determine if aspirin should be resumed, and follow up with PCP. Repeat CT 12/03/23 showed evolving right subdural hematoma without evidence of an acute process. AMERICO (acute kidney injury) 09/19/2023 Overview (01/23/2024): [facility] (12/19/23-12/23/23) Patient presented for evaluation of dysuria [...] Assessment & Plan (01/23/2024 10:35 AM EST): [facility] (12/19/23-12/23/23) Patient presented for evaluation of dysuria [...] Polypharmacy 05/16/2023 Overview (05/16/2023): -Medication list at [facility] still included the following medications that [...] (05/28/2023 12:11 PM EDT): -Medication list at [facility] still included the following medications that [...] (05/16/2023 12:01 PM EDT): -Medication list at [facility] still included the following medications that [...] use his left arm and leg -Evaluation HISTORICAL SITE GUIDE services by [facility]. -Casemanager is Anais Abdifatah Morillo [phone] 05/15/23 repots pt given number for transportation - rx for Left AFO for foot drop. Per pt it can go to [facility] in [place] or [facility] in [place] written 05/16/23 -swallow study 06/25/23 No laryngeal penetration or tracheal aspiration was observed during , g tube removed -multiple falls since discharged. Last discontinue from rehab 08/03/23 -referred to PT 01/23/24 Assessment & Plan (01/23/2024 10:24 AM EST): Right thalamic hemorrhagic stroke 02/11/23. Antiplatelet and atorvastatin held. -Patient is unable to use his left arm and leg -Evaluation HISTORICAL SITE GUIDE services by [facility]. -Casemanager is Anais Abdifatah Morillo [phone] [id number] 05/15/23 repots pt given number for transportation - rx for Left AFO for foot drop. Per pt it can go to [facility] in [place] or [facility] in [place] written 05/16/23 -swallow study 06/25/23 No laryngeal penetration or tracheal aspiration was observed during , g tube removed -multiple falls since discharged. Last discontinue from rehab 08/03/23 -referred to PT 01/23/24 Assessment & Plan (11/02/2023 1:37 PM EDT): Right thalamic hemorrhagic stroke 02/11/23. Antiplatelet and atorvastatin held. -Patient is unable to use his left arm and leg -Evaluation HISTORICAL SITE GUIDE services by [facility]. -Casemanager is Anais Morillo [phone] 05/15/23 repots pt given number for transportation - rx for Left AFO for foot drop. Per pt it can go to [facility] in [place] or [facility] in [place] written 05/16/23 -swallow study 06/25/23 No laryngeal [...] trying to coordinate care. Evaluation 05/17/23 for HISTORICAL SITE GUIDE services by [facility]. -Alisha Manzo Abdifatah Morillo [phone] 05/15/23 repots pt given number for transportation -Care management at [facility] helped pt with transportation 05/16/23 - rx for Left AFO for foot drop. Per pt it can go to [facility] in [place] or [facility] in [place] written 05/16/23 -ADAMARIS Kenny RNCM will see pt at home 05/17/23 - Number for [facility] [phone] 05/28/23 Assessment & Plan (05/16/2023 1:17 PM EDT): Right thalamic hemorrhagic stroke 02/12/24. Antiplatelet and atorvastatin held. -repeat lipid panel and consider switching to more hydrophilic statin. -Patient is unable to use his left arm and leg -much of the visit was spent trying to coordinate care. Evaluation 05/17/23 for HISTORICAL SITE GUIDE services by [facility]. -Alisha miller Aanis Abdifatah Morillo [phone] 05/15/23 repots pt given number for transportation -Care management at [facility] helped pt with transportation 05/16/23 - rx for Left AFO for foot drop. Per pt it can go to [facility] in [place] or [facility] in [place] written 05/16/23 -CRA Elaina Kenny RNCM will [...] 2024 -followed by Dr. Rashad Moon of [facility] , last eye exam 10/17/22 -health care proxy paperwork done 05/16/23 Assessment & Plan (05/16/2023 1:22 PM EDT): -Next physical due after April 19, 2024 -followed by Dr. Rashad Moon of [facility] , last eye exam 10/17/22 -health [...] to follow up with nephrology, Dr. Guerrier [facility] (12/19/23-12/23/23). Pt was septic and found to [...] to follow up with nephrology, Dr. Guerrier [facility] (12/19/23-12/23/23). Pt was septic and found to [...] He is folled by nephrology with Dr. Frey last seen 04/06/2022, will follow up in [...] exam followed by Dr. Rashad Moon of [facility] , last 10/17/22 -Foot exam: [...] exam followed by Dr. Rashad Moon of [facility] , last 10/17/22 -Foot exam: done 01/23/24 -Continue lifestyle modifications -Continue current medications -Clarification of insulin: -Medication list at [facility] still included the following medications that [...] exam followed by Dr. Rashad Moon of [facility] , last 10/17/22 -Continue lifestyle modifications -Continue current medications -Clarification of insulin: -Medication list at [facility] still included the following medications that [...] exam followed by Dr. Rashad Moon of [facility] , last 10/17/22 -Continue lifestyle modifications -Continue current medications -Clarification of insulin: -Medication list at [facility] still included the following medications that [...] exam followed by Dr. Rashad Moon of [facility] , last 10/17/22 -Diabetic foot exam: [...] seen by Cards in Dec 2021 - [facility] Cards: Dr. Jeffrey. Per consult note, Echo showed moderate LVH c/w hypertensive heart disease, but no signs/symptoms of CHF ?? Outgoing TC placed to [facility] Cards with pt and left message on [...] Type Department Care Team Description 04/11/2024 Telephone [facility] [place] [address] Natacha Olivas MD Verbal order 03/17/2024 Telephone [facility] [place] [address] Radha Brewer MA Recalls May (I book the appt on 06/02/24 for Physical.) 03/17/2024 Travel 03/11/2024 Orders Only [facility] [address] Natacha Olivas MD 03/04/2024 Refill [facility] [place] [address] Natacha Olivas MD Left foot pain 02/24/2024 Orders Only GENERIC EXTERNAL DATA DEPARTMENT Provider, Generic External Data Pyelonephritis (Primary Dx) 02/21/2024 Abstract [facility] [address] Natacha Olivas MD 02/21/2024 Orders Only [facility] [address] Natacha Olivas MD Constipation, unspecified constipation type (Primary Dx); Benign prostatic hyperplasia with lower urinary tract symptoms, symptom details unspecified 02/18/2024 Orders Only GENERIC EXTERNAL DATA DEPARTMENT Provider, Generic External Data 02/05/2024 Telephone [facility] [address] Natacha Olivas MD Verbal order 02/04/2024 Orders Only [facility] [address] Natacha Olivas MD Impaired mobility and activities of daily living (Primary Dx); 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, unspecified cerebrovascular disease type ([facility]) 01/31/[address] [address] Natacha Olivas MD Referral 01/30/[address] [address] Natacha Olivas MD Medication Question; Request For Order(s) 01/23/2024 9:00 AM EST Office Visit [address] [address] Natacha Olivas MD Encounter for examination following treatment at hospital (Primary Dx); Hemorrhagic cerebrovascular accident (CVA) ([facility]); Immobility syndrome (paraplegic); AMERICO (acute kidney injury) ([facility]); CKD stage 3 secondary to diabetes ([facility]); Primary hypertension; Type 2 diabetes mellitus with stage 3b chronic kidney disease, 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 ([facility]); History of subdural hematoma; Encounter for immunization; Acute subdural hematoma ([facility]); Mixed stress and urge urinary incontinence 01/23/[address] [address] Cherelle Olguin MA Durable Medical Equipment 01/23/[address] [address] Natacha Olivas MD 01/23/2024 Travel 01/18/[address] [address] Natacha Olivas MD Major depressive disorder, remission [...] Description 06/02/2024 9:45 AM EDT Office Visit [facility] [address] [place] [address] Natacha Olivas MD [address] [place] [address] Health Maintenance Due Date Last Done Comments [...] stage 3b chronic kidney disease, unspecified whether long-term insulin use (CMS/HCC) HEMOGLOBIN A1C Routine 01/23/2024 11:00 AM EST Type 2 diabetes mellitus with stage 3b chronic kidney disease, 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 [facility] ?[address] ?[place] [address] ?XRay Report ? Signed ? Patient: Jaramillo,Hector ?MR#: [id number] ?? 5 ? : 1945 ?Acct:[id number] ? Age/Sex: 78 / M ?ADM Date: 01/05/25 ? Loc: HO.S3 ?344-1 ? Attending Dr: Rashad Reid DO ? Ordering Physician: Rashad Reid DO ?? Date of Service: 02/25/24 ?? Procedure(s): XR chest 1V ?? Accession Number(s): [id number] ? cc: Natacha Olivas MD; Rashad Reid [...] DD/ 1150 ? TD/TT: 02/25/24 1156 ? Service Liaison Representative: ? Procedure Note Freda, Image - 02/25/[address] [address] XRay Report Signed Patient: Hector JaramilloMR#: [id number] 5 : 7Acct:[id number] Age/Sex: 78 / MADM Date: 02/24/24 Loc: .S3 344-[address]: Rashad Reid DO Ordering Physician: Rashad Reid DO Date of Service: 02/25/24 Procedure(s): XR chest 1V Accession Number(s): [id number] cc: Natacha Olivas MD; Rashad Reid DO [...] 02/25/24 1239 DD/ 1150 TD/TT: 02/25/24 1156 Service Liaison Representative: [facility] External Provider IMG XR PROCEDURES Edited Result - Final * (ABNORMAL) Urinalysis, Complete, with Reflex to Culture (02/24/2024 8:58 PM EST) Color Urine Yellow [facility] Appearance Urine Hazy [facility] PH 5.5 5.0 - 9.0 [facility] Glucose Urine UA >=1000(A) Negative mg/dL [facility] Urine Blood Small (1+)(A) Negative [facility] Specific [place] - Urine 1.015 1.005 - 1.025 [facility] Urine Protein 30 (1+)(A) Neg-Trace mg/dL [facility] Urine Ketones Negative Negative mg/dL [facility] Nitrite Urine Negative Negative [facility] Leukocyte Esterase Urine Small (1+)(A) Negative [facility] RBC Urine 6-10(A) 0 - 2 /HPF [facility] Urine WBC >50(A) 0 - 5 /HPF [facility] Urine Squamous Epithelial Cell 0-2 0 - 2 /HPF [facility] Urine Bacteria None Seen None Seen [facility] Hyaline Casts, Urine 0-2 0 - 2 /LPF [facility] Urine Yeast Present [facility] 02/24/2024 8:58 PM EST 02/24/2024 9:02 PM EST Narrative [facility] - 02/24/2024 9:33 PM EST [id number], [employer] us Generic External Data Provider LAB URINE ORDERAB LES Final Result [facility] [address] [place] [address] [phone] * CT Abdomen Pelvis w/o Contrast (02/24/2024 7:59 PM EST) Anatomical Region Laterality Modality Body, Pelvis, Abdomen Computed T omography 02/24/2024 7:59 PM EST Narrative 02/24/2024 8:01 PM EST ? [facility] ?[address] ?[place] ? CT Scan Report ? Signed ? Patient: Jaramillo,Hector ?MR#: [id number] ?? 5 ? : 1945 ?Acct:[id number] ? Age/Sex: 78 / M ?ADM Date: 02/24/24 ? Loc: HO.ED ? Attending Dr: ? Ordering Physician: Samantha Capone MD ?? Date of Service: 02/24/24 ?? Procedure(s): CT abdomen pelvis wo IV con ?? Accession Number(s): [id number] ? cc: Natacha Olivas MD; Samantha Capone MD ? Report Number: ?? [id number]: Total DLP = ??478.00 mGy-cm ? CLINICAL HISTORY: Left-sided abdominal pain question diverticulitis ? CT abdomen and pelvis without contrast ? Comparison: CT/SR - CT ABDOMEN PELVIS WO IV CON - 12/19/23 02:35 EDT ?? CT/RI/SR - CT ABDOMEN PELVIS WO IV CON [...] ? DD/ 58 ? TD/TT: 02/24/241958 ? Service Liaison Representative: ? Procedure Note Freda, Herve - 02/24/[address] [address] [address] Scan Report Signed Patient: Hector JaramilloMR#: [id number] 5 : 1945cct:[id number] Age/Sex: 78 / MADM Date: 02/24/24 Loc: HO.ED Attending Dr: Ordering Physician: Samantha Capone MD Date of Service: 02/24/24 Procedure(s): CT abdomen pelvis wo IV con Accession Number(s): [id number] cc: Natacha Olivas MD; Samantha Capone MD Report Number: [id number]: Total DLP = 478.00 mGy-cm CLINICAL HISTORY: Left-sided abdominal pain question diverticulitis CT abdomen and pelvis without contrast Comparison: CT/SR - CT ABDOMEN PELVIS WO IV CON - 12/19/23 02:[address]/RI/SR - CT ABDOMEN PELVIS WO IV CON [...] MD on 02/24/2024 19:59:29 Dictated By: Joel Mejia MD Signed By: <Electronically signed by Joel Mejia MD in OV> 02/24/241999 DD/ 58 TD/TT: 02/24/241958 Service Liaison Representative: [facility] External Provider IMG CT PROCEDURES Edited Result - Final * Lactic Acid (02/24/2024 6:36 PM EST) Lactic Acid 1.8 0.5 - 2.0 mmol/L [facility] 02/24/2024 6:36 PM EST 02/24/2024 6:41 PM EST Generic External Data Provider LAB BLOOD ORDERAB LES Final Result [facility] [address] [place], [place] [phone] * (ABNORMAL) CBC auto differential (02/24/2024 3:16 PM EST) White Blood Count 19.7(H) 4.8 - 10.8 X10*3/uL [facility] Red Blood Count 4.68 4.60 - 5.80 X10*6/uL [facility] Hemoglobin 12.2(L) 14.0 - 18.0 g/dl [facility] Hematocrit 37.5(L) 42.0 - 52.0 % [facility] Mean Corpuscular Volume 80.1 80.0 - 98.0 fL [facility] Mean Corpuscular Hemoglobin 26.1(L) 27.0 - 33.0 pg [facility] Mean Corpuscular HGB Conc 32.5 31.0 - 36.0 g/dl [facility] Red Cell Distribution Width 15.9 11.0 - 16.0 % [facility] Platelet Count 316 160 - 400 X10*3/uL [facility] Mean Platelet Volume 9.0(L) 9.4 - 12.4 fL [facility] Neutrophils Percent Auto 87.5(H) 45 - 73 % [facility] Imm Gran Pct Auto 0.5(H) 0.0 - 0.4 % [facility] Lymphocytes Percent Auto 4.4(L) 20 - 40 % [facility] Monocytes Percent Auto 7.3 2 - 11 % [facility] Eosinophils Percent Auto 0.1 0 - 4 % [facility] Basophils Percent Auto 0.2 0 - 2 % [facility] NRBC Pct Auto 0.0 0.0 - 0.2 /100WBC [facility] Neutrophils Absolute Auto 17.3(H) 2.0 - 8.3 x10*3/uL [facility] Imm Gran Abs Auto 0.09(H) 0.00 - 0.03 X10*3/uL [facility] Lymphocytes Absolute Auto 0.9(L) 1.2 - 4.9 X10*3/uL [facility] Monocytes Absolute Auto 1.4(H) 0.1 - 1.2 X10*3/uL [facility] Eosinophils Absolute Auto 0.0 0.0 - 0.4 X10*3/uL [facility] Basophils Absolute Auto 0.0 0.0 - 0.2 X10*3/uL [facility] NRBC Abs Auto 0.000 0.0 - 0.012 X10*3/uL [facility] 02/24/2024 3:16 PM EST 02/24/2024 3:20 PM EST us Generic External Data Provider LAB BLOOD ORDERAB LES Final Result [facility] [address] [place] [address] [phone] * (ABNORMAL) Comprehensive Metabolic Panel (02/24/2024 3:16 PM EST) Sodium 134(L) 135 - 145 mmol/L [facility] Potassium 4.2 3.3 - 5.1 mmol/L [facility] Chloride 105 96 - 108 mmol/L [facility] Carbon Dioxide 17(L) 22 - 29 mmol/L [facility] Anion Gap 16 12 - 20 [facility] Urea Nitrogen (BUN) 28(H) 9 - 16 mg/dL [facility] Creatinine, Serum 2.47(H) 0.5 - 1.4 mg/dL [facility] Creatinine Clr Calc Pharmacy 22.6 [facility] Comment:eGFR (calculated fro m the MDRD study equation) and eCrCl(calculated from the Cockcroft-Gault equation) are based ondifferent parameters and may not yield comparable results.If eCrCl result is absurd, please check patient'sheight/weight. Estimated Glomerular Filt Rate 26 [facility] Comment:Chronic Kidney Disea se: Estimated GFR < 60 mL/min/1.43n4Irrkhj Kidney Disease: Estimated GFR < 15 mL/min/1.73m2 Glucose 232(H) 60 - 115 mg/dL [facility] Calcium 9.3 8.4 - 10.2 mg/dL [facility] Bilirubin, Total 0.6 0.0 - 1.0 mg/dL [facility] Aspartate Amino Transferase 13 5 - 37 U/L [facility] Alanine Aminotransferase <6 0 - 40 U/L [facility] Total Protein 8.5(H) 6.5 - 8.0 g/dL [facility] Albumin Level 3.6 3.5 - 5.0 g/dL [facility] Alkaline Phosphatase 101 39 - 117 U/L [facility] 02/24/2024 3:16 PM EST 02/24/2024 3:20 PM EST us Generic External Data Provider LAB BLOOD ORDERAB LES Final Result Performing Organization Address [facility]/ZIP Co de Phone Number [facility] [address] [place] [phone] * (ABNORMAL) Glucose, Whole Blood (02/18/2024 11:47 AM EST) Glucose, Whole Blood 399(HH) 60 - 115 mg/dL [facility] Comment:METER #: [id number] Testing performed in the Endocrinology Department [address] , [address], [facility]. 02/18/2024 11:4 7 AM EST 02/18/2024 11:55 AM EST us Generic External Data Provider LAB BLOOD ORDERAB LES Final Result Performing Organization Address [facility] Co de Phone Number [facility] [address] [place] [phone] * (ABNORMAL) Hemoglobin A1c (01/23/2024 11:00 AM EST) Hemoglobin A1c 8.0(H) <6.0 % [facility] Comment:Hemoglobin A1C Refer ence Range Adults: 4.8 - 6.0 % Non diabetic: < 6.0 % Goal: < 7.0 %Additional Action Suggested: > 8.0 %Note: Hemoglobin A1c results are invalid for patients with abnormal amounts of HbF. Blood transfusions may impact the HbA1c concentration in the patient sample. Estimated Average Glucose 183 mg/dL [facility] Comment:eAG = Estimated ave rage glucose which is %A1C expressed asaverage glucose, using the formula of the B0F-SsyftjxJkpcviu Glucose study (ADAG), Diabetes Care, Vol.31,#8,Sep. 2007 Blood Venous blood specimen / Unknown 01/23/2024 11:00 AM EST 01/23/2024 12:56 PM EST Natacha Olivas MD LAB BLOOD ORDERABLES Final Result Performing Organization Address [facility]/ZIP Co de Phone Number [facility] [address] [place] [phone] * (ABNORMAL) Hepatic Function Panel (01/23/2024 11:00 AM EST) Bilirubin, Total 0.3 0.0 - 1.0 mg/dL [facility] Bilirubin, Direct 0.1 0.0 - 0.5 mg/dL [facility] Aspartate Amino Transferase 18 5 - 37 U/L [facility] Alanine Aminotransferase 8 0 - 40 U/L [facility] Total Protein 8.1(H) 6.5 - 8.0 g/dL [facility] Albumin Level 3.4(L) 3.5 - 5.0 g/dL [facility] Alkaline Phosphatase 96 39 - 117 U/L [facility] [facility] Blood Venous blood specimen / Unknown 01/23/2024 11:00 AM EST 01/23/2024 12:56 PM EST Natacha Olivas MD LAB BLOOD ORDERABLES Final Result Performing Organization Address [facility]/ZIP Co de Phone Number [facility] [address] [place] [phone] * (ABNORMAL) Lipid Panel, Standard (01/23/2024 11:00 AM EST) Triglycerides 258(H) <150 mg/dL [facility] Comment:Desirable Triglyceri de: less than 150 mg/dLBorderline High Triglyceride 150-199 mg/dLHigh Triglyceride: 200-499 mg/dLVery High Triglyceride: greater than or equal to 5OO mg/dL Cholesterol 196 <200 mg/dL [facility] Comment:Desirable Cholestero l: less than 200 mg/dLBorderline High Cholesterol: 200-239 mg/dLHigh Cholesterol: greater than 239 mg/dL LDL Cholesterol Calculated 107(H) <100 mg/dL [facility] Comment:Desirable LDL: less than 100 mg/dLNear Optimal/Above Optimal LDL: 110- 129 mg/dLBorderline High LDL: 130-159 mg/dLHigh LDL: 160-189 mg/dLVery High LDL: greater than or equal to 190 mg/dL HDL Cholesterol 38(L) >40 mg/dL [facility] Comment:Desirable HDL: great er than 40 mg/dL Note: This HDL assay may give artificially low results in patients with liver disease. Blood Venous blood specimen / Unknown 01/23/2024 11:00 AM EST 01/23/2024 12:56 PM EST us Natacha Olivas MD LAB BLOOD ORDERABLES Final Result [facility] [address] [place] [phone] [phone] * (ABNORMAL) Basic Metabolic Panel (01/23/2024 11:00 AM EST) Sodium 137 135 - 145 mmol/L [facility] Potassium 4.5 3.3 - 5.1 mmol/L [facility] Chloride 105 96 - 108 mmol/L [facility] Carbon Dioxide 23 22 - 29 mmol/L [facility] Anion Gap 14 12 - 20 [facility] Urea Nitrogen (BUN) 34(H) 9 - 16 mg/dL [facility] Creatinine, Serum 1.99(H) 0.5 - 1.4 mg/dL [facility] Estimated Glomerular Filt Rate 33 [facility] Comment:Chronic Kidney Disea se: Estimated GFR < 60 mL/min/1.33q5Twygwk Kidney Disease: Estimated GFR < 15 mL/min/1.73m2 Glucose 297(H) 60 - 115 mg/dL [facility] Calcium 9.4 8.4 - 10.2 mg/dL [facility] Blood Venous blood specimen / Unknown 01/23/2024 11:00 AM EST 01/23/2024 12:56 PM EST Natacha Olivas MD LAB BLOOD ORDERABLES Final Result Performing Organization Address [facility]/RUST Co de Phone Number [facility] [address] [place] [address] [phone] * Hepatitis C Ab (11/15/2022 10:56 AM EDT) Hepatitis C Antibody Nonreactive Nonreactive [facility] Comment:Antibodies to HCV no t detected; does not exclude early acuteHCV infection. Blood 11/15/2022 10:5 6 AM EDT 11/15/2022 12:56 PM EDT Natacha Olivas MD LAB BLOOD ORDERABLES Final Result Performing Organization Address City/[facility]/ZIP Co de Phone Number [facility] [address] [place] [address] [phone] * Diabetes Eye Exam (10/17/2022) Eye Exam Normal Normal Historical Provider HEALTH MAINTENANCE Final Result * Colonoscopy (01/06/2021) Colonoscopy tubular adenoma with Dr. Sands Historical Medardo OROZCO HEALTH MAINTENANCE Final Result from Last 3 Months or Most Recently Relevant to Health Maintenance Insurance [facility] STANDARD MEDICARE Advance Directives Documents on File Type Date Recorded Patient Supervisor Special Services Expl anation Advance Directives and Living Will 01/24/2024 10:49 AM Health Care Proxy Care Teams Tool Shaper Set Up Operator Relationship Specialty Start Date End Date Gaston, MD Natacha [address] [place] [phone] PCP - General Family Medicine 09/05/13 Rukhsana Penaloza PharmD [address] [place] [address] Pharmacist Internal Medicine 07/13/22 Ebenezer Earl MD [address] [place] [address] Urology 02/18/24 [facility] 08/08/23 Ember Krishnamurthy PA-C [facility] Endocrinology Endocrinology 02/18/24
--- OUTSIDE RECORDS SUMMARY | 2024-04-15 16:28 | XMS_ITS | Encounter Summary ---
Author Organization [facility], Address [address] [place] [address] Phone Care Team Providers Care Bed Placement Coordinator Name Role Phone Natacha Olivas MD Primary Care Provider U bran Encounter Details Date Type Department Care Team (Late st Contact Info) Description 09/08/2022 Documentation Only [facility], [address] [place] [phone] Ana Browning PA Social History Tobacco Use [...] on filedocumented in this encounter Care Teams Bed Placement Coordinator Relationship Specialty Start Date End Date Natacha Olivas MD PCP - General 12/24/18 documented as of this encounter
--- OUTSIDE RECORDS SUMMARY | 2024-04-15 16:29 | XMS_ITS | Encounter Summary ---
Author Organization [facility], Address [address] [place] [address] Phone Care Team Providers Care Retail Salesperson Name Role Phone Natacha Olivas MD Primary Care Provider U bran Encounter Details Date Type Department Care Team (Late st Contact Info) Description 11/27/2022 Orders Only [facility], [address] [place] [phone] Ana Browning PA Hypervolemia; Stage 3b chronic [...] Hypertension documented in this encounter Care Teams Retail Salesperson Relationship Specialty Start Date End Date Natacha Olivas MD PCP - General 12/24/18 documented as of this encounter
== END 2024-04-15 12:27 | disposition home or self-care (01) ==
LOC: HO.LAB 12:26
PROVIDERS: PCP Family Medicine; Visit Provider Urology
DX: N39.0 Urinary tract infection, site not specified (principal); N40.0 Benign prostatic hyperplasia without lower urinary tract symptoms; N13.30 Unspecified hydronephrosis; Z13.9 Encounter for screening, unspecified
CPT/HCPCS: 81003; 87086; 99212

== ENCOUNTER 2024-04-15 12:26 | Outpatient (AMB) | payer MEDICARE, MEDICAID, SELFPAY ==
--- NOTE | 2024-04-15 13:08 | MHC.OFFVIS ---
Int[place] [facility] [place]drone[place]/US Intake Note: Patient is present for ER: UTI/HYDRONEPHROSIS/US Urology Medication:FINASTERIDE Antibiotic Allergy:NONE Blood Thinner:NONE Scuba Diving Teacher Required: No Allergies No Known Allergies Allergy (Mild, Verified 04/15/24 13:09) N/A HPI Comments Details: Hector is a Sinhala-speaking male. He is seen for the following urologic conditions - hydronephrosis - recurrent UTI in setting of poorly controlled diabetes Accompanied by daughter who is translating Persistent left hydro uretero nephrosis Creatinine has been stable since 2021 Recurrent urinary tract infection with polydipsia and polyuria with urge These are all known complications for Jardiance HbA1c 8.0 poorly controlled Recommend vitamin-C with methenamine Recommend discussion with primary care about switching diabetic medications Hydronephrosis Background insulin-dependent diabetes, hypertension, CKD stage 3, mood disorder, neuropathy Presentation through hospital found to have acute urinary tract infection UA positive glucose positive blood positive leukocytes negative nitrites - on Jardiance. Now with complication associated with medication. Creatinine 03/15 2.1 stable since 2021 Urine culture negative Imaging - Mild left hydronephrosis and mild left ureterectasis is present similar findings present for 09/07/2023 - 03/15 CT with persistent left hydro uretero nephrosis Lasix renogram - 01/12 Normal functioning renal parenchyma bilaterally with no evidence for obstruction PVR today 0 cc Refill medications - finasteride Six-month follow-up [facility] Medical History NSTEMI (non-ST elevated myocardial infarction) Sepsis Pneumonia Type 2 diabetes mellitus with diabetic polyneuropathy Diverticulosis Erectile dysfunction BPH (benign prostatic hyperplasia) Carpal tunnel syndrome Cataracts, bilateral GERD (gastroesophageal reflux disease) Kidney stones Type 2 diabetes mellitus with chronic kidney disease Chronic kidney disease, stage 3 Type 2 diabetes mellitus with hyperglycemia Essential hypertension Hyperlipidemia LDL goal <70 Surgical History Hx of colonoscopy Hx of lithotripsy Family History Father No problems noted. Mother Diabetes mellitus Brother Diabetes mellitus Sister Diabetes mellitus Social History Household Members: Spouse and Children Housing: Apartment Housing Other:: Has ramp . No services Do you presently have visiting nurse or other home services: Yes ([employer]. Nurse and P.T.) Alcohol intake: never Patient Tobacco Use Status: Never used Tobacco Advance Directives Date on File: 04/11/23 service: No Current occupational status: retired Review of Systems Const Denies chills and Denies fever(s) Card Reports no additional complaints and Denies syncope Resp Denies cough GI Denies abdominal pain and Denies heartburn Reports as per HPI and Denies change in libido Neuro Denies syncope Psych Denies change in libido Endo Denies change in libido Physical Exam Const General: cooperative, healthy appearing, comfortable and no acute distress Orientation/consciousness: patient oriented x3 HEENT Face and sinus: Yes normal facial exam Mouth: moist mucous membranes Neck Neck: Yes normal visual inspection, Yes full ROM and Yes trachea midline Chest Chest palpation & inspection: normal inspection of the chest Resp Effort & Inspection: normal respiratory effort, able to speak in complete sentences and no respiratory distress GI Inspection: Yes normal to inspection Back/Spine/Pelvis Cervical Spine: normal cervical lordosis Thoracic/Lumbar Spine: thoracic and lumbar spine normal to inspection Skin General skin exam: no rashes or lesions noted Neuro General: patient oriented x3, gait normal, tone normal and moves all extremities Extrem General: Yes normal to inspection and Yes capillary refill normal Assessment & Plan Assessment & Plan (1) Recurrent UTI: Code(s): N39.0 - Urinary tract infection, site not specified Category: Medical (2) BPH (benign prostatic hyperplasia): Code(s): N40.0 - Benign prostatic hyperplasia without lower urinary tract symptoms Category: Medical (3) Hydronephrosis: Code(s): N13.30 - Unspecified hydronephrosis Category: Medical Plan Start vitamin-C and methenamine Refer to primary care to stop Jardiance which had significant side effects in this population Orders: Orders AMB Urinalysis Automated Today Z13.9 - Encounter for screening, unspecified Urine Culture Today N39.0 - Urinary tract infection, site not specified Medications: New ascorbic acid (vitamin C) 1,000 mg PO DAILY 90 days 90 tabs 1RF N39.0 - Urinary tract infection, site not specified methenamine hippurate 1 g PO daily 90 days 90 tabs 1RF N39.0 - Urinary tract infection, site not specified Patient Instructions: This note is constructed using voice recognition software. While every effort has been made to ensure accuracy plumbing hardware assembler errors may have been included. Imaging studies, laboratory and physical exam results were discussed and reviewed in detail. No major barriers to patient understanding were identified. An opportunity to ask questions regarding the treatment plan was provided. All questions were answered. The patient expressed understanding and agreement with the above treatment plan. The patient is aware they should contact our office by phone for worsening of their current condition or the appearance of new urologic symptoms. Compliance is encouraged with any medications and followup testing that is ordered. It is a privilege to participate in the urologic care of your patient. If you have any questions or concerns regarding treatment for the above conditions, or other urologic issues, please do not hesitate to contact me. The office telephone contact is [phone]. Sincerely, Dr Ebenezer Earl MD, YOGESH [facility] - Urology Compassionate Specialist Care for the Genitourinary System Coding Level of Care Code Est Pt Level 3 (59635) Complex EM visit Add On G2211 Diagnoses Recurrent UTI N39.0 BPH (benign prostatic hyperplasia) N40.0 Hydronephrosis N13.30
--- OUTSIDE RECORDS SUMMARY | 2024-04-15 15:05 | XMS_ITS | Encounter Summary ---
Author Organization [employer] Address [address] [place] [address] Care Team Providers Care Wardrobe Image Consultant Name Role Phone Natacha Olivas MD Primary Care Provider [phone] Rukhsana Penaloza PharmD Unavailable [phone] Ebenezer Earl MD Unavailable [phone] Reason for Visit * Reason Onset Date Comments FYI 12/07/2023 Call Back Request 12/07/2023 Encounter Details Date Type Department Care Team (Late st Contact Info) Description 12/07/2023 Telephone [facility] [address] [place] [address] Natacha Olivas MD [address] [place] [address] FYI; Call Back Request Social History Tobacco Use Types Packs/Day Years Used Date Smoking Tobacco: Never Passive Smoke Exposure: Never Smokeless Tobacco: Never Alcohol Use Standard Drinks/Week Comments Never 0 (1 standard drink = 0.6 oz pur e alcohol) Alcohol Answer Date Recorded Frequency of Alcohol Consumption Not on file 08/22/2023 Average Number of Drinks Not on file 024 Frequency of Binge Drinking Not on file 04/2023 Score 0 08/22/2023 Depression Answer Date Recorded Patient Health Questionnaire-9 Score 5 05/16/2023 Patient Health Questionnaire-9 Score 5 05/16/2023 Last PHQ-9: Questionnaire Data Not on file 0 05/16/2023 Housing Stability Answer Date Recorded What is your housing situation today? I have anca carvajal 05/16/[address] you li ve. Do you have problems with any of the following? None of the above 05/16/2023 Food Insecurity Answer Date Recorded Within the past 12 months, y ou worried that your food would run out before you got money to buy more: Never True 05/16/2023 Within the past 12 months,th e food you bought just didn't last and you didn't have enough money to get more: Never True Transportation Answer Date Recorded In the past 12 months, has l ack of transportation kept you from medical appts, meetings, work or from getting things needed for daily living? No 05/16/2023 Utilities Answer Date Recorded In the past 12 months, has t he electric, gas, oil or water company threatened to shut off services in your home? No 05/16/2023 Depression Answer Date Recorded Patient Health Questionnaire-2 Score 2 05/16/2023 Sex and Gender Information Value Date Recorded Sex Assigned at Male 12/19/2021 10:16 AM EDT Legal Sex Male 10:16 AM EDT Gender Identity Male 12/19/2021 10:16 AM EDT Sexual Orientation Straight 12/19/2021 10 :16 AM EDT documented as of this encounter Miscellaneous Notes * Telephone Encounter - Sandra Bennett RN - 12/11/2023 9:30 AM EDT TC placed to Elaina, case work aide with [facility] who called with some concerns that have been observed in regards to the pt care. Elaina went to the pt home on Sunday with another METER TECHNICIAN and assessed that the pt has not been safely and correctly checking blood sugar numbers and giving insulinas needed. The pt blood sugar on Sunday was 388. Pt did not have any symptoms but Elaina feels strongly that the pt is not having well controlled blood sugar levels. Elaina is requesting daily VNA visits for the pt for insulin and blood sugar control as well as checking in with daily care. A swallow evaluation is also requested due to the pt having lost twenty pounds since April of 2023. Elaina has filed a protective services report on the pt several times due to the pt being very demanding and demeaning to any who enter the home. Elaina states that the is not helping with the pt care and has been making it very difficult for others to come into the home to help give the pt what he needs. The pt has very poor family dynamics. The pt has a scheduled HDF appt on 12/12/23 with a METER TECHNICIAN resident and the pt was reminded of the importance of attending. Elaina notified that PCP willbe sent this message promptly to see what interventions can be ordered. * Telephone Encounter - Rebel Brewer - 12/11/2023 8:37 AM EDT Tc from Elaina the VNA at [facility] calling to add additional information in regards to the message below Elaina and a Energy Analyst evaluated patient and is requesting a swallow eval due to the 20 lbs weight for April Please call [phone] * Telephone Encounter - Pablo Pardo - 12/07/2023 2:46 PM EDT Tc from Elaina VNA stating during today's visit she realized pt is not taking his insulin, blood sugar coming out to 388 this morning. Elaina would like to request daily VNA for pt to check blood sugar and help with insulin. Elaina is requesting call back to further discuss. Please contact Elaina at [phone] documented in this encounter Plan of Treatment Upcoming Encounters Date Type Department Care Team (Late st Contact Info) Description 06/02/2024 9:45 AM EDT Office Visit [facility] [address] [place] [address] Natacha Olivas MD [address] [place] [address] documented as of this encounter Goals Goal Patient Goal Type Associated Problems Recent Progress Patient-Stated? Author Blood Pressure < 140/90 Blood Pressure 127/67( 024 9:50 AM EST) No Rukhsana Allen, PharmD documented as of this encounter Visit Diagnoses Not on filedocumented in this encounter Additional Health Concerns Assessment Noted Time PHQ-9 Depression Total Score: 5 05/16/19 24 9:17 AM EDT documented as of this encounter Care Teams Wardrobe Image Consultant Relationship Specialty Start Date End Date Natacha Olivas MD [address] [place] [address] PCP - General Family Medicine 09/05/13 Rukhsana Penaloza, HiltonD [address] [place] [address] Pharmacist Internal Medicine 07/13/22 Ebenezer Earl MD [address] [place] [address] Urology 02/18/24 [facility] 08/08/23 Ember Krishnamurthy PA-C [facility] Endocrinology Endocrinology 02/18/24 documented as of this encounter
--- OUTSIDE RECORDS SUMMARY | 2024-04-15 15:05 | XMS_ITS | Encounter Summary ---
Author Organization [employer] Address [address] [place] [address] [address] [place] [address] Care Team Providers Care Paralegal Legal Secretary Name Role Phone Natacha Olivas MD Primary Care Provider [phone]- [phone] Rukhsana Penaloza PharmD Unavailable [phone] Ebenezer Earl MD Unavailable [phone] Encounter Details Date Type Department Care Team ([facility] st Contact Info) Description 12/11/2023 Telephone [facility] [address] [place] [address] Radha Avila PharmD [address] [place] [address] Social History Tobacco Use Types Packs/Day Years [...] the past 12 months, has t he [employer], gas, oil or water [employer] threatened to shut off services in your [...] encounter Miscellaneous Notes * Telephone Encounter - Rebel Brewer - 12/11/2023 11:19 AM EDT Tc from patients daughter calling in regards to message below keno writer/runner did cancel appt * Telephone Encounter - Radha Avila PharmD - 12/11/2023 11:06 AM EDT Patient's daughter reports that they are unable to make upcoming HDF follow up appointment on 12/12/2023. Please assist in rescheduling. documented in this encounter Plan of Treatment Upcoming Encounters Date Type Department Care Team (Late st Contact Info) Description 06/02/2024 9:45 AM EDT Office Visit [facility] [address] [place] [address] Natacha Olivas MD [address] [place] [address] documented as of this encounter Goals Goal Patient Goal Type Associated Problems Recent Progress Patient-Stated? Author Blood Pressure < 140/90 Blood Pressure 127/67( 024 9:50 AM EST) No Rukhsana Allen, Gorge documented as of this encounter Visit Diagnoses Not on filedocumented in this encounter Additional Health Concerns Assessment Noted Time PHQ-9 Depression Total Score: 5 05/16/19 24 9:17 AM EDT documented as of this encounter Care Teams Paralegal Legal Secretary Relationship Specialty Start Date End Date Natacha Olivas MD [address] [place] [address] PCP - General Family Medicine 09/05/13 Rukhsana Penaloza, PharmD [address] [place] [address] Pharmacist Internal Medicine 07/13/22 Ebenezer Earl MD [address] [place] [address] Urology 02/18/24 [facility] 08/08/23 Ember Krishnamurthy PA-C [facility] Endocrinology Endocrinology 02/18/24 documented as of this encounter
--- OUTSIDE RECORDS SUMMARY | 2024-04-15 15:05 | XMS_ITS | Encounter Summary ---
Author Organization [employer] Address [address] [facility] 7t [place] [address] Care Team Providers Care Marketing Content Specialist Name Role Phone Natacha Olivas MD Primary Care Provider +1- [phone] Rukhsana Penaloza PharmD Unavailable [phone]- [phone] Ebenezer Earl MD Unavailable [phone] Reason for Visit * Reason Onset Date Comments Appointment Request 12/18/2023 Encounter Details Date Type Department Care Team ([facility] st Contact Info) Description 12/18/[address] [facility] [address] [place] [address] Natacha Olivas MD [address] [place], [place] [phone] Appointment Request Social History Tobacco Use Types Packs/Day [...] encounter Miscellaneous Notes * Telephone Encounter - Francie Toth RN - 12/20/2023 12:58 PM EDT Telephone call placed to pt. His spouse answered who states pt is admitted at [facility] currently. Admitted for Nausea vomiting and diarrhea, Acute kidney injury superimposed on chronic kidney disease per [facility]. Spouse is requesting follow up with PCP. Informed nothing until January. She requested I book it as she isn't sure when he will be out of the hospital and he needs to seePCP. Booked for 01/23/24. She also is requesting status on incontinence supplies for urinary incontinence: wipes, chucks, gloves, and pull ups size medium. Informed I don't see any mention of incontinence supplies but will look into it. Lastly, she is requesting FMLA to bring pt to his appts. Advised she get paperwork from her employer and bring to HIM. Spouse verbalized understanding and denied having any further questions or concerns at this time. * Telephone Encounter - Reina Coronado - 12/18/2023 1:15 PM EDT Tc from pt daughter requesting to r/s [facility] appt . Did inform she not on file and that pt would be the one getting a call back. documented in this encounter Plan of Treatment Upcoming Encounters Date Type Department Care Team (Late st Contact Info) Description 06/02/2024 9:45 AM EDT Office Visit [facility] [address] [place] [address] Natacha Olivas MD [address] [place] [address] documented as of this encounter Goals Goal [...] documented as of this encounter Care Teams Marketing Content Specialist Relationship Specialty Start Date End Date Natacha Olivas MD [address] [place] [address] PCP - General Family Medicine 09/05/13 Rukhsana Penaloza, PharmD [address] [place] [address] Pharmacist Internal Medicine 07/13/22 Ebenezer Earl MD [address] [place] [address] Urology 02/18/24 [facility] 08/08/23 Ember Krishnamurthy PA-C [facility] Endocrinology Endocrinology 02/18/24 documented as of this encounter
--- OUTSIDE RECORDS SUMMARY | 2024-04-15 15:05 | XMS_ITS | Encounter Summary ---
Author Organization [employer] Address [address] [facility] 7t [place] [address] Care Team Providers Care Press Feeder Name Role Phone Natacha Olivas MD Primary Care Provider [phone]- [phone] Rukhsana Penaloza PharmD Unavailable [phone]- [phone] Ebenezer Earl MD Unavailable [phone] Reason for Visit * Reason Onset Date Comments Medication Question 12/27/2023 Encounter Details Date Type Department Care Team ([facility] st Contact Info) Description 12/27/2023 Telephone [facility] [address] [place] [address] Natacha Olivas MD [address] [place], [place] [phone] Medication Question Social History Tobacco Use Types Packs/Day Years [...] the past 12 months, has t he [employer], gas, oil or water [employer] threatened to shut off services in your [...] Telephone Encounter - Sandra Bennett RN - 12/27/2023 2:34 PM EST TC placed to [facility] with [employer] to go over pt most recent medication list. Pt was recently discharged from [facility] on 12/20/23 with a new sliding scale for the insulin lispro 100 unit/ml. The other medications matched on the pt medication list when reconciled but Daryl wants to make PCP aware of the change made in the hospital. Pt has an upcoming appt with PCP on 01/23/24 Protocol: Insulin Correction Scale Less than or equal to 110 ---- Give (units): 0 111 to 150 Give (units): 0 151 to 200 Give (units): 2 201 to 250 Give (units): 4 251 to 300 Give (units): 6 301 to 350 Give (units): 8 Greater than 350 Give (units): 10 Call MD if Blood Glucose > : 340 * Telephone Encounter - Reina Coronado - 12/27/2023 11:26 AM EST Tc from [facility] with [facility] [employer] requesting a call back to go over pt medication. documented in this encounter Plan of Treatment Upcoming Encounters Date Type Department Care Team (Late st Contact Info) Description 06/02/2024 9:45 AM EDT Office Visit [facility] [address] [place] [address] Natacha Olivas MD [address] [place] [address] documented as of this encounter Goals Goal Patient Goal Type Associated Problems Recent Progress Patient-Stated? Author Blood Pressure < 140/90 Blood Pressure 127/67( 024 9:50 AM EST) No Rukhsana Allen PharmD documented as of this encounter Visit Diagnoses Not on filedocumented in this encounter Additional Health Concerns Assessment Noted Time PHQ-9 Depression Total Score: 5 05/16/19 24 9:17 AM EDT documented as of this encounter Care Teams Press Feeder Relationship Specialty Start Date End Date Natacha Olivas MD [address] [place] [address] PCP - General Family Medicine 09/05/13 Rukhsana Penaloza, HiltonD [address] [place] [address] Pharmacist Internal Medicine 07/13/22 Ebenezer Earl MD [address] [place] [address] Urology 02/18/24 [facility] 08/08/23 Ember Krishnamurthy PA-C [facility] Endocrinology Endocrinology 02/18/24 documented as of this encounter
--- OUTSIDE RECORDS SUMMARY | 2024-04-15 15:05 | XMS_ITS | Encounter Summary ---
Author Organization [employer] Address [address] [place] [address] 7t [place] [address] Care Team Providers Care Dice Maker Name Role Phone Natacha Olivas MD Primary Care Provider +- [phone] Rukhsana Penaloza PharmD Unavailable [phone] Ebenezer Earl MD Unavailable [phone] Encounter Details Date Type Department Care Team (Late st Contact Info) Description 12/11/2023 Orders Only [facility] 230 [place] [address] Radha Avila PharmD [address] [place] [address] Social History Tobacco Use Types Packs/Day Years [...] the past 12 months, has t he [employer], gas, oil or water company threatened to [...] AM EDT documented as of this encounter Plan of Treatment Upcoming Encounters Date Type Department Care Team (Late st Contact Info) Description 06/02/2024 9:45 AM EDT Office Visit [facility] [address] [place] [address] Natacha Olivas MD [address] [place] [address] documented as of this encounter Goals Goal [...] documented as of this encounter Care Teams Dice Maker Relationship Specialty Start Date End Date Natacha Olivas MD [address] [place] [address] PCP - General Family Medicine 09/05/13 Rukhsana Penaloza, PharmD [address] [place] [address] Pharmacist Internal Medicine 07/13/22 Ebenezer Earl MD [address] [place] [address] Urology 02/18/24 [facility] 08/08/23 Ember Krishnamurthy PA-C [facility] Endocrinology Endocrinology 02/18/24 documented as of this encounter
--- OUTSIDE RECORDS SUMMARY | 2024-04-15 15:05 | XMS_ITS | Encounter Summary ---
Author Organization [employer] Address [address] [facility] 7t [place] [address] Care Team Providers Care Oil Dispenser Name Role Phone Natacha Olivas MD Primary Care Provider [phone]- [phone] Rukhsana Penaloza PharmD Unavailable [phone] Ebenezer Earl MD Unavailable [phone] Reason for Visit * Reason Comments Med Refill Encounter Details Date Type Department Care Team (Late st Contact Info) Description 12/26/2023 Refill [facility] [address] [place] [address] Natacha Olivas MD [address] [place] [address] Type 2 diabetes mellitus with stage 3b chronic kidney disease, 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 ([facility]) documented in this encounter Additional Health Concerns Assessment Noted Time PHQ-9 Depression Total Score: 5 05/16/19 24 9:17 AM EDT documented as of this encounter Care Teams Oil Dispenser Relationship Specialty Start Date End Date Natacha Oliavs MD [address] [place] [address] PCP - General Family Medicine 09/05/13 Rukhsana Penaloza, [place] [address] [place] [address] Pharmacist Internal Medicine 07/13/22 Ebenezer Earl MD [address] [place] [address] Urology 02/18/24 [facility] 08/08/23 Ember Krishnamurthy PA-C [facility] Endocrinology Endocrinology 02/18/24 documented as of this encounter
--- OUTSIDE RECORDS SUMMARY | 2024-04-15 15:05 | XMS_ITS | Encounter Summary ---
Author Organization [employer] Address [address] [facility] 7t [place] [address] Care Team Providers Care Air Conditioning Unit Tester Name Role Phone Natacha Olivas MD Primary Care Provider +- [phone] Rukhsana Penaloza PharmD Unavailable [phone] Ebenezer Earl MD Unavailable [phone] Encounter Details Date Type Department Care Team (Late st Contact Info) Description 02/23/2023 Telephone [facility]INE [address] [place] [address] Natacha Olivas MD [address] [place] [address] Social History Tobacco Use Types Packs/Day Years Used Date Smoking Tobacco: Never Passive Smoke Exposure: Never Smokeless Tobacco: Never Depression Answer Date Recorded Patient Health Questionnaire-9 Score 0 04/19/2022 Housing Stability Answer Date Recorded What is your housing situation today? I have anca carvajal 12/12/[address] you li ve. Do you have problems with any of the following? None of the above 12/12/2022 Food Insecurity Answer Date Recorded Within the past 12 months, y ou worried that your food would run out before you got money to buy more: Never True 12/12/2022 Within the past 12 months,th e food you bought just didn't last and you didn't have enough money to get more: Never True Transportation Answer Date Recorded In the past 12 months, has l ack of transportation kept you from medical appts, meetings, work or from getting things needed for daily living? No 12/12/2022 Utilities Answer Date Recorded In the past 12 months, has t he electric, gas, oil or water company threatened to shut off services in your home? No 12/12/2022 Depression Answer Date Recorded Patient Health Questionnaire-2 Score 0 04/19/2022 Sex and Gender Information Value Date Recorded Sex Assigned at Male 12/19/2021 10:16 AM EDT Legal Sex Male 10:16 AM EDT Gender Identity Male 12/19/2021 10:16 AM EDT Sexual Orientation Straight 12/19/2021 10 :16 AM EDT documented as of this encounter Miscellaneous Notes * Telephone Encounter - Pablo Edvin - 02/23/2023 12:30 PM EST Tc from pt's spouse stating they received a call, tech writer did not see any notes. documented in this encounter Plan of Treatment Upcoming Encounters Date Type Department Care Team (Late st Contact Info) Description 06/02/2024 9:45 AM EDT Office Visit [facility] [address] [place] [address] Natacha Olivas MD [address] [place] [address] documented as of this encounter Goals Goal Patient Goal Type Associated Problems Recent Progress Patient-Stated? Author Blood Pressure < 140/90 Blood Pressure 127/67( 024 9:50 AM EST) No Rukhsana Allen, PharmD documented as of this encounter Visit Diagnoses Not on filedocumented in this encounter Additional Health Concerns Assessment Noted Time PHQ-9 Depression Total Score: 0 04/20/19 23 10:47 AM EST documented as of this encounter Care Teams Air Conditioning Unit Tester Relationship Specialty Start Date End Date Natacha Olivas MD [address] [place] [id number] PCP - General Family Medicine 09/05/13 Rukhsana Penaloza, PharmD [address] [place] [phone] Pharmacist Internal Medicine 07/13/22 Ebenezer Earl MD [address] [place] [address] Urology 02/18/24 [facility] 08/08/23 Ember Krishnamurthy PA-C [facility] Endocrinology Endocrinology 02/18/24 documented as of this encounter
--- OUTSIDE RECORDS SUMMARY | 2024-04-15 15:05 | XMS_ITS | Encounter Summary ---
Author Organization [employer] Address [address] [facility] 7t [place] [address] Care Team Providers Care Marine Designer Name Role Phone Natacha Olivas MD Primary Care Provider +- [phone] Rukhsana Penaloza PharmD Unavailable [phone] Ebenezer Earl MD Unavailable [phone] Encounter Details Date Type Department Care Team (Late st Contact Info) Description 01/02/[address] [facility] [address] [place] [address] Natacha Olivas MD [address] [place] [address] Social History Tobacco Use Types Packs/Day Years [...] encounter Miscellaneous Notes * Telephone Encounter - Reina Coronado - 01/02/2024 4:10 PM EST Tc from [facility] services requesting a call back regarding acouple question. Would like to know if pt has the capacity of making his own decision.Any care proxy on file,level of care and if the provider has any concerns. Best contact # [phone] ext [phone] documented in this encounter Plan of Treatment Upcoming Encounters Date Type Department Care Team (Late st Contact Info) Description 06/02/2024 9:45 AM EDT Office Visit [facility] [address] [place] [address] Natacha Olivas MD [address] [place] [address] documented as of this encounter Goals Goal [...] documented as of this encounter Care Teams Marine Designer Relationship Specialty Start Date End Date Natacha Olivas MD [address] [place] [address] PCP - General Family Medicine 09/05/13 Rukhsana Penaloza, HiltonD [address] [place] [address] Pharmacist Internal Medicine 07/13/22 Ebenezer Earl MD [address] [place] [address] Urology 02/18/24 [facility] 08/08/23 Ember Krishnamurthy PA-C [facility] Endocrinology Endocrinology 02/18/24 documented as of this encounter
--- OUTSIDE RECORDS SUMMARY | 2024-04-15 15:05 | XMS_ITS ---
Author Name Nidhi Spence NP Address [address] [place] [address] Phone [phone] Organization [facility] Care Team Providers Care Gravity Meter Observer Name Role Phone Nidhi Spence Unavailable [phone] Unavailable Unavailable Unavailable Reason for Referral Not Available Allergies, adverse reactions, alerts No known allergies History of medication use Medication Class Instructions Start Date End Date Pantoprazole Sodium 40 mg Tab delayed rel TAKE 1 TABLET BY MOUTH EVERY MORNING 2023-06-18 No Data Available Mirtazapine 15 mg Tab Disintegrating 1 tablet orally daily at bedtime 2023-05-28 No Data Available Jardiance 25 mg Tab 1 tablet orally once daily 2023-04 No Data Available Gabapentin 300 mg Cap 1 capsule orally daily 2023-05-22 9 No Data Available Furosemide 20 mg Tab TAKE 1 TABLET BY MO UTH EVERY OTHER DAY IN THE MORNING 2023-04-10 No Data Available Escitalopram Oxalate 10 mg Tab No Data Available 2023-06-27 2024-01-09 Carvedilol 6.25 mg Tab 1 tablet orally twice daily 04-28-19 No Data Available amLODIPine Besylate 5 mg Tab take 1 tabl et orally once daily 2023-06-18 No Data Available Insulin Lispro (1 Unit Dial) 100 UNIT/ML Solution Pen-injector Subcutaneous INJECT 15 UNITS SUBCUTANEOUSLY WITH BREAKFAST, WITH LUNCH AND WITH DINNER 2023-07-25 No Data Available Lantus SoloStar 100 UNIT/ML Solution Pen-injector INJECT 30 UNITS SUBCUTANEOUSLY AT BEDTIME 2023-07-29 No Data Available OneTouch Delica Plus [id number] Miscellaneous No Data Available 2022-08-14 No Data Availabl e Cephalexin 500 mg Cap TAKE 1 CAPSULE BY MOUTH THREE TIMES DAILY FOR 7 DAYS 2023-08-22 No Data Available Pentips 32 gauge x 5/32 needle USE FIVE TIMES DAILY WITH levemir AND novolog 2023-06-20 No Data Available OneTouch Verio Strip No Data Available 2023-06-20 No Data Available Medbox Status USE DIRECTED 2022-11-28 2024-01-09 oxyCODONE 5 mg Tab TAKE 1 TABLET BY SARA TH TWICE DAILY NEEDED FOR PAIN 2023-10-03 No Data Available Cefuroxime Axetil 250 mg Tab TAKE 1 TABL ET BY MOUTH EVERY TWELVE HOURS UNTIL FINISHED 2023-10-03 No Data Available Loratadine 10 mg Tab TAKE 1 TABLET BY MO UTH EVERY OTHER DAY NEEDED FOR ALLERGIES 2022-11-09 No Data Available GaviLAX 17 GM/SCOOP Powder TAKE 17 GM KS XED IN 8 OUNCES OF WATER ONCE DAILY AT BEDTIME NEEDED FOR CONSTIPATION 2023-11-02 2024-01-09 Hydrocortisone 0.5 % Crm APPLY TOPICALLY TO THE AFFECTED AREA(S) TWICE DAILY 2023-11-02 No Data Available MULTIVITAMIN TABLET TAKE 1 TABLET BY SARA TH EVERY MORNING 2023-11-02 No Data Available Senna 8.6 mg Tab TAKE 1 TO 2 TABLETS BY MOUTH AT BEDTIME NEEDED FOR CONSTIPATION 2023-11-02 No Data Available Docusate Sodium 100 mg Cap TAKE 1 CAPSUL E BY MOUTH TWICE DAILY FOR CONSTIPATION 2023-11-29 No Data Available Amoxicillin 500 mg Cap TAKE 1 CAPSULE BY MOUTH EVERY 8 HOURS FOR 7 DAYS 2023-12-25 No Data Available Acetaminophen Extra Strength 500 mg Tab TAKE 1 TABLET BY MOUTH EVERY 8 HOURS NEEDED FOR MILD PAIN 2023-12-25 No Data Available Problem List Problem Status Onset Date Resolved Date GERD (gastroesophageal reflux disease) Active 13-01-20 N/A History of falling Active 2024-01-09 N/A HTN (hypertension) Active 2024-01-09 N/A Constipated Active 2024-01-09 N/A Subdural hematoma Active 2024-01-09 N/A Hemiplegia, unspecified affe cting left nondominant side Active 2024-01-08 N/A Chronic diastolic (congestiv e) heart failure with Secondary hyperaldosteronism Active 2024-01-08 N/A Major depression, recurrent Active 2024-01-09 N/A Assistance needed for personal hygiene Active 13-01-20 N/A Chronic kidney disease, stag e 4 (severe)Diabetes mellitus with nephropathyLong term (current) use of insulin Active 2024-01-08 N/A Other problems related to ks dical facilities and other health care Active 2024-01-09 N/A Encounters Encounters Type Facility Date of Service Diagnosis/Co mplaint New patient,40-59min; chronic exacerbation, 2 stable chronic or 1 acute illness add add modifier 95 for video (do not use for phone, instead use [id number]) [facility], ([place]) 01/09/2024 Type 2 diabetes mellitus wit h diabetic chronic kidney diseaseHyp hrt & chr kdny dis w hrt fail and stg 1-4/unsp chr kdnyChronic kidney disease, stage 4 (severe)Chronic diastolic (congestive) heart failureType 2 diabetes mellitus with diabetic nephropathyLong term (current) use of insulinHemiplegia, unspecified affecting left nondominant sideSecondary hyperaldosteronismMajor depressive disorder, recurrent, unspecifiedTraumatic subdural hemorrhage with loss of consciousness status unknown, initial encounterGastro-esophageal reflux disease without esophagitisConstipation, unspecifiedHistory of fallingNeed for assistance with personal careOther problems related to medical facilities and other health care New patient,40-59min; chronic exacerbation, 2 stable chronic or 1 acute illness add add modifier 95 for video (do not use for phone, instead use [id number]) [facility], ([place]) 01/09/2024 New patient,40-59min; chronic exacerbation, 2 stable chronic or 1 acute illness add add modifier 95 for video (do not use for phone, instead use [id number]) [facility], ([place]) 01/09/2024 New patient,40-59min; chronic exacerbation, 2 stable chronic or 1 acute illness add add modifier 95 for video (do not use for phone, instead use [id number]) [facility], ([place]) 01/09/2024 New patient,40-59min; chronic exacerbation, 2 stable chronic or 1 acute illness add add modifier 95 for video (do not use for phone, instead use [id number]) [facility], ([place]) 01/09/2024 No Data Available [facility], ([place]) 02/07/2024 Type 2 diabetes mellitus wit h diabetic nephropathyChronic kidney disease, stage 4 (severe)oil heaterman (current) use of insulinChronic diastolic (congestive) heart failureSecondary hyperaldosteronismEssential (primary) hypertensionConstipation, unspecifiedOther problems related to medical facilities and other health careHistory of falling No Data Available [facility], ([place]) 02/07/2024 Estab. patient 10-29min; 1 minor problem; add add modifier 95 for video, modifier 93 for phone [facility], ([place]) 03/05/2024 Chronic kidney disease, stag e 4 (severe)Type 2 diabetes mellitus with diabetic nephropathyLong term (current) use of insulinOther problems related to medical facilities and other health care Vital Signs Date of Collection Vitals 2024-01-09 11:03:34 Height - 165.1 cmWei ght - 56.7 kgBody Mass Index (BMI) - 20.8 kg/m2Pain Scale - 0.0 {score} Social History Social History Social History Observation Description Effec tive Time Current Smoking Status Never smoker 2024-03-23 6 Sex Male History of Procedures Procedures Service Procedure code Service date Servicing provider Phone# New patient,40-59min; chronic exacerbation, 2 stable chronic or 1 acute illness add add modifier 95 for video (do not use for phone, instead use [id number]) [id number] 2024-01-09 No Data Available No Data Availa ble Pain Assessment - NO pain present (1126F) 1126F 2024-01-09 No Data Available No Data A vailable Medication List Documented (1159F) 1159F 2024-01-09 No Data Available No Data Juliana ilable Medication Review by prescribing provider or pharmacist documented (1160F) 1160F 2024-01-09 No Data Available No Data Juliana ilable BMI obtained (3008F) 3008F 2024-01-09 No Data Availab le No Data Available No Data Available [id number] 2024-02-07 No Data Available No Data Available Medication List Documented (1159F) 1159F 2024-02-07 No Data Available No Data Juliana ilable Estab. patient 10-29min; 1 minor problem; add add modifier 95 for video, modifier 93 for phone [id number] 2024-03-05 No Data Available No Data Availa ble Functional Status No Information Mental Status No Information Assessments Date of Service Assessments 2024-01-09 11:03:34 Chronic kidney disea se, stage 4 (severe)Diabetes mellitus with nephropathyLong term (current) use of insulinOther problems related to medical facilities and other health careHemiplegia, unspecified affecting left nondominant sideChronic diastolic (congestive) heart failure with Secondary hyperaldosteronismMajor depression, recurrentSubdural hematomaHTN (hypertension)GERD (gastroesophageal reflux disease)ConstipatedHistory of fallingAssistance needed for personal hygiene 2024-02-07 13:08:36 Chronic kidney disea se, stage 4 (severe)Diabetes mellitus with nephropathyLong term (current) use of insulinOther problems related to medical facilities and other health careChronic diastolic (congestive) heart failure with Secondary hyperaldosteronismHTN (hypertension)ConstipatedHistory of falling 2024-03-05 12:49:00 Chronic kidney disea se, stage 4 (severe)Diabetes mellitus with nephropathyLong term (current) use of insulinOther problems related to medical facilities and other health care Plan of Care Date of Service Plans 2024-01-09 11:03:34 Pain Assessment - NO pain documented (1126F)Medication Review by prescribing provider or pharmacist documented (1160F)Medication List Documented (1159F)BMI obtained (3008F)Televideo new patient,40-59min; chronic exacerbation, 2 stable chronic or 1 acute illness add modifier 95Continue to see PCP. Follow-up with [facility] as needed for any acute or disease education needs that may arise. Continue taking medications as directed, and keep all follow up appointments with established PCP and specialist(s). At least 50% of time spent counseling patient, discussing diagnosis, treatment plan, compliance, and coordinating follow-up anne-marie del real lisproGFR 29 11/19/23- shantelle kdrpawMRSU1R 8.2 [facility] Recommend medication compliance, healthy weight/BMI, yearly eye exams, checking feet for wounds daily. Recommend diabetic/renal diet with low sugar, potassium, protein, and phosphorus. Maintain hydration through water intake. Goal blood pressure <130/80. Recommend renally dosed medications when appropriate. Avoid nephrotoxic medications (NSAIDS, high dose Gabapentin, Baclofen, Fleet Enema, Morphine/Codeine). Recommend to not smoke. If symptoms of low blood sugar (shaking, sweating) drink 6oz of fruit juice.DIABETES CONTINGENCY PLANLast updated: 01/09/2024Why was the member in the hospital or ER most recently? Tonymber to call for the following symptoms: Blood sugar <70??/ Blood sugar >300??Planned intervention: If low drink 4-6oz of juice or soda and recheck in 15 min. Decrease long-acting insulin to <> units/ If high: Increase long-acting insulin to <> units/ Limit high-sugar and high-carbohydrate foodss/p CVANeeds caregiver assist, using walking aideTaking coreg, furosemide, jardianceRecommend daily weights and to follow low sodium diet. Monitor for leg swelling and shortness of breath. Contact provider if weight change >3lb/day or 5lb in 1 week, for new/worsening leg swelling, or new/worsening shortness of breath.Mirtazapine Notify provider with any changes in behavior, difficulty sleeping, or new/worsening depressive symptoms.10/2023- fell forward into a dresser. No surgical intervention. Aspirin was held. Resulted in hospital stay then acute rehab stayf/u Dr. Merlin Padilla [facility] Neurosurgery Sunday-Amlodipine, Carvedilol Blood Pressure 128/72 08/22/2023 Recommend medication compliance, heart healthy diet, monitor blood pressure routinely and notify provider with any high or low readings. Recommend to not smoke.Taking PPIRecommend medication compliance. Measures to improve GERD management like avoiding large meals. Avoid food triggers to include spicy/acidic foods, fried foods, alcohol, caffeine, peppermint, and chocolate.Senna, miralax, docusateRecommend adequate dietary fiberRecommend measures to reduce falls. Use ambulatory aid if indicated. Change positions slowly. Avoid low lit rooms and remove potential trip hazards.Has caregiver- hollis for adl and home assist 2024-02-07 13:08:36 Phone (patient, pare nt, or guardian); 5-10 minutes of medical discussion (no modifier 95)Continue to see PCP. [facility] or disease education needs that may arise 11/09.jardiance, lantus, lisproGFR 29 11/19/23- [facility]HG[facility] 8.2 12/27[facility]- [facility] Recommend medication compliance, healthy weight/BMI, yearly eye exams, checking feet for wounds daily. Recommend diabetic/renal diet with low sugar, potassium, protein, and phosphorus. Maintain hydration through water intake. Goal blood pressure <130/80. Recommend renally dosed medications when appropriate. Avoid nephrotoxic medications (NSAIDS, high dose Gabapentin, Baclofen, Fleet Enema, Morphine/Codeine). Recommend to not smoke. If symptoms of low blood sugar (shaking, sweating) drink 6oz of fruit juice.DIABETES CONTINGENCY PLANLast updated: 02/07/2024Member to call for the following symptoms: Blood sugar >300??/ Polydipsia/ PolyuriaPlanned intervention: Increase short-acting insulin to <> units/ Go for a walk02/18/24: f/u endocrine .Taking coreg, furosemide, jardianceRecommend daily weights and to follow low sodium diet. Monitor for leg swelling and shortness of breath. Contact provider if weight change >3lb/day or 5lb in 1 week, for new/worsening leg swelling, or new/worsening shortness of breath.-Amlodipine, Carvedilol Blood Pressure 128/72 08/22/2023 Recommend medication compliance, heart healthy diet, monitor blood pressure routinely and notify provider with any high or low readings. Recommend to not smoke.Senna, miralax, docusateRecommend adequate dietary fiberRecommend measures to reduce falls. Use ambulatory aid if indicated. Change positions slowly. Avoid low lit rooms and remove potential trip hazards. 2024-03-05 12:49:00 Estab. patient 10-29 min; 1 minor problem; add add modifier 95 for video, modifier 93 for phoneContinue to see PCP. [facility] or disease education needs that may arise 11/09.jardikings, lantus, lisproGFR 29 11/19/23- [facility] systemHGBA1C 8.2 12/27/23- [facility] Recommend medication compliance, healthy weight/BMI, yearly eye exams, checking feet for wounds daily. Recommend diabetic/renal diet with low sugar, potassium, protein, and phosphorus. Maintain hydration through water intake. Goal blood pressure <130/80. Recommend renally dosed medications when appropriate. Avoid nephrotoxic medications (NSAIDS, high dose Gabapentin, Baclofen, Fleet Enema, Morphine/Codeine). Recommend to not smoke. If symptoms of low blood sugar (shaking, sweating) drink 6oz of fruit juice.03/05/24: Reports ER visit 2 weeks ago for pain around his kidney. [facility], he is currently at [facility]. Team updated for f/u. Reports steadily improving, unable to provide details of medical problem. MR requestedDIABETES CONTINGENCY PLANLast updated: 02/07/2024Member to call for the following symptoms: Blood sugar >300??/ Polydipsia/ PolyuriaPlanned intervention: Increase short-acting insulin to <> units/ Go for a walk Health Concerns Date Concern 2024-03-05 Visit completed via audio by telephone. Patient/Guardian agreed to visit via telehealth.Time spent in visit: 2024-03-05 Most recent hospital stay(s) or ER visit(s) and precipitating factors: Reports ER visit 2 weeks ago for pain around his kidney. [facility], he is currently at [facility]. Team updated for f/u. Reports steadily improving, unable to provide details of medical problem.
--- OUTSIDE RECORDS SUMMARY | 2024-04-15 15:06 | XMS_ITS | Encounter Summary ---
Author Organization [facility], Address [address] [place] [address] Phone Care Team Providers Care Jailer/Training Officer Name Role Phone AtlantaNatacha badillo MD Primary Care Provider U bran Encounter Details Date Type Department Care Team (Late st Contact Info) Description 11/02/2020 Documentation Only [facility], [address] [place] [phone] Mando Lala MD [address] [place] [phone] Social History Tobacco Use Types Packs/Day Years Used Date Smoking Tobacco: Never Alcohol Use Standard Drinks/Week Comments No 0 (1 standard drink = 0.6 oz pur e alcohol) Sex and Gender Information Value Date Recorded Sex Assigned at Not on file Legal Sex Male 4:31 PM EST Gender Identity Not on file Sexual Orientation Not on file documented as of this encounter Plan of Treatment Not on file documented as of this encounter Visit Diagnoses Not on filedocumented in this encounter Care Teams Jailer/Training Officer Relationship Specialty Start Date End Date AtlantaNatacha badillo MD PCP - General 12/24/18 documented as of this encounter
--- OUTSIDE RECORDS SUMMARY | 2024-04-15 15:06 | XMS_ITS | Encounter Summary ---
Author Organization [employer] Address [address] [place] [address] Care Team Providers Care Wort Extractor Name Role Phone Natacha Olivas MD Primary Care Provider [phone] Rukhsana Penaloza PharmD Unavailable [phone] Ebenezer Earl MD Unavailable [phone] Reason for Visit * Reason Onset Date Comments Durable Medical Equipment 10/26/2023 Encounter Details Date Type Department Care Team (Late st Contact Info) Description 10/26/2023 Telephone [facility] MEDICINE [address] [place] [address] Natacha Olivas MD [address] [place], [place] [phone] Durable Medical Equipment Social History Tobacco Use Types Packs/Day Years Used Date Smoking Tobacco: Never Passive Smoke Exposure: Never Smokeless Tobacco: Never Alcohol Use Standard Drinks/Week Comments Never 0 (1 standard drink = 0.6 oz pur e alcohol) Alcohol Answer Date Recorded Frequency of Alcohol Consumption Not on file 08/22/2023 Average Number of Drinks Not on file 024 Frequency of Binge Drinking Not on file 0704/2023 Score 0 08/22/2023 Depression Answer Date Recorded [...] encounter Miscellaneous Notes * Telephone Encounter - Natacha Olivas MD - 11/02/2023 11:46 AM EDT Please rx gloves large; pads for bed that are reusable; a recliner. Dx incontinence, parapelegia * Telephone Encounter - Pablo Pardo - 10/26/2023 1:16 PM EDT Tc from [facility], requesting a wheel chair cushion and a tub transfer bench for pt. If any questions you can contact Abby at [phone]. documented in this encounter Plan of Treatment Upcoming Encounters Date Type Department Care Team (Late st Contact Info) Description 06/02/2024 9:45 AM EDT Office Visit [facility] MEDICINE [address] [place] [phone] Natacha Olivas MD [address] [place] [address] documented as of this encounter Goals Goal [...] documented as of this encounter Care Teams Wort Extractor Relationship Specialty Start Date End Date Natacha Olivas MD [address] [place] [address] PCP - General Family Medicine 09/05/13 Rukhsana Penaloza, PharmD [address] [place] [address] Pharmacist Internal Medicine 07/13/22 Ebenezer Earl MD [address] [place] [address] Urology 02/18/24 [facility] 08/08/23 Ember Krishnamurthy PA-C [facility] Endocrinology Endocrinology 02/18/24 documented as of this encounter
--- OUTSIDE RECORDS SUMMARY | 2024-04-15 15:06 | XMS_ITS | Encounter Summary ---
Author Organization [employer] Address [address] [place] [address] [address] [place] [address] Care Team Providers Care Senior Lead Project Manager Name Role Phone Natacha Olivas MD Primary Care Provider + [phone] Rukhsana Penaloza PharmD Unavailable [phone] Ebenezer Earl MD Unavailable [phone] Encounter Details Date Type Department Care Team (Latest Contact Info) Description 03/10/2021 Abstract [facility] CONVERSIONS Dental, Provider, DDS Social History Tobacco Use Types Packs/Day Years Used Date Smoking Tobacco: Never Assessed Sex and Gender Information Value Date Recorded Sex Assigned at Male 12/19/2021 10:16 AM EDT Legal Sex Male 10:16 AM EDT Gender Identity Male 12/19/2021 10:16 AM EDT Sexual Orientation Straight 12/19/2021 10 :16 AM EDT documented as of this encounter Plan of Treatment Upcoming Encounters Date Type Department Care Team (Late st Contact Info) Description 06/02/2024 9:45 AM EDT Office Visit [facility] MEDICINE [address] [place] [address] Natacha Olivas MD [address] [place] [address] documented as of this encounter Visit Diagnoses Not on filedocumented in this encounter Care Teams Senior Lead Project Manager Relationship Specialty Start Date End Date Natacha Olivas MD [address] [place] [address] PCP - General Family Medicine 09/05/13 Rukhsana Penaloza, PharmD [address] [place] [address] Pharmacist Internal Medicine 07/13/22 Ebenezer Earl MD [address] [place] [address] Drive [address] [place] [address] Urology 02/18/24 [facility] 08/08/23 Ember Krishnamurthy PA-C [facility] Endocrinology Endocrinology 02/18/24 documented as of this encounter
--- OUTSIDE RECORDS SUMMARY | 2024-04-15 15:06 | XMS_ITS | Clinical Summary ---
Author Organization [facility] Address [address] [place] [phone] Phone Care Team Providers Care Cytotechnologist/Histotechnologist Name Role Phone Steven Saez MD Primary Care Provider [phone] Encounters Date Type Department Care Team Description 03/18/2024 Lab Requisition [facility] - Main Lab [address] [place] [phone] Steven Saez MD Chronic kidney disease, unspecified 02/29/2024 Lab Requisition [facility] - Main Lab [address] [place] [phone] Steven Saez MD Essential (primary) hypertension; Type 2 diabetes mellitus without complications (CMS/HCC) from Last 3 Months Social History Tobacco Use Types Packs/Day Years Used Date Smoking Tobacco: Never Assessed Sex and Gender Information Value Date Recorded Sex Assigned at Not on file Legal Sex Male 8:07 PM EST Gender Identity Not on file Sexual Orientation Not on file Plan of Treatment Health Maintenance Due Date Last Done Comments Diabetes: Annual Foot Exam 1955 Diabetes: Annual Retina Eye Exam 1955 RSV Immunization Patients 60+ Years Old (1 - 1-dose 75+ series) 2021 Falls Risk Assessment 03/15/2023 Hepatitis C Screening 03/15/2023 Medicare Annual Wellness Visit 03/15/2023 Social Influencers of Health Screening 03/15/2023 Diabetes: Annual Urine Albumin-Creatinine Ratio (uACR) 02/29/2024 Depression Screening 05/15/2024 05/16/2023 Diabetes: Blood Sugar Control Test (HGBA1C) 08/28/2024 02/29/2024, 01/23/2024, 12/27/2023, Additional history exists Diabetes: Annual GFR (Glomerular Filtration Rate) 03/19/2025 03/19/2024, 02/29/2024, 02/24/2024, Additional history exists Hypertension/CHF/CAD Annual BMP Blood Test 03/19/2025 03/19/2024, 02/29/2024, 02/24/2024, Additional history exists Cholesterol Screening (Lipid Panel) 01/22/2029 01/23/2024 DTaP,Tdap,and Td Vaccines (4 - Td or Tdap) 11/15/2032 11/15/2022, 06/11/2012, 03/21/2002 Hepatitis B Vaccines Completed 06/11/2012, 10/17/2010, 09/19/2010 Pneumococcal Vaccine: 50+ Years Completed 11/17/2016, 12/27/2014, 12/26/2014, Additional history exists Zoster Vaccines Completed 05/12/2021, 04/2020, 12/26/2014 Influenza Vaccine Completed 12/19/2023, , 11/15/2022, Additional history exists COVID-19 Vaccine Completed 01/23/2024, , 01/04/2021, Additional history exists HIB Vaccines Aged Out No longer eligi ble based on patient's age to complete this topic HPV Vaccines Aged Out No longer eligi ble based on patient's age to complete this topic Hepatitis A Vaccines Aged Out No long er eligible based on patient's age to complete this topic IPV Vaccines Aged Out No longer eligi ble based on patient's age to complete this topic MMR Vaccines Aged Out No longer eligi ble based on patient's age to complete this topic Meningococcal ACWY Vaccine Aged Out N o longer eligible based on patient's age to complete this topic Meningococcal B Vacine Aged Out No lo nger eligible based on patient's age to complete this topic RSV Immunization Patients Under 20 months Aged Out No longer eligible based on patient's age to complete this topic Varicella Vaccines Aged Out No longer eligible based on patient's age to complete this topic Procedures Procedure Name Priority Date/Time Associated Diagnosis Comments BASIC METABOLIC PANEL Routine 03/19/2024 7:28 AM EST Chronic kidney disease, unspecified COMPLETE BLOOD COUNT Routine 03/19/2024 7:28 AM EST Chronic kidney disease, unspecified CBC WITH AUTO DIFFERENTIAL Routine 02/29/2024 9:02 AM EST Essential (primary) hypertension Type 2 diabetes mellitus without complications (CMS/HCC) HEMOGLOBIN A1C Routine 02/29/2024 9:02 AM EST Essential (primary) hypertension Type 2 diabetes mellitus without complications (CMS/HCC) COMPREHENSIVE METABOLIC PANEL Routine 02/29/2024 9:02 AM EST Essential (primary) hypertension Type 2 diabetes mellitus without complications (CMS/HCC) CBC AND DIFFERENTIAL Routine 02/29/2024 9:02 AM EST Essential (primary) hypertension Type 2 diabetes mellitus without complications (CMS/HCC) from Last 3 Months Results * (ABNORMAL) Complete blood count (03/19/2024 7:28 AM EST) WBC 5.5 4.8 - 10.8 K/mcL LAB HEMETOLOGY METHOD 03/19/2024 12:29 PM [facility] RBC 4.50 4.50 - 5.50 M/mcL LAB HEMETOLOGY METHOD 03/19/2024 12:29 PM [facility] Hemoglobin 11.8(L) 13.5 - 17.5 g/dL LAB HEMETOLOGY METHOD 03/19/2024 12:29 PM [facility] Hematocrit 39.0(L) 42.0 - 54.0 % LAB HEMETOLOGY METHOD 03/19/2024 12:29 PM [facility] MCV 86.9 79.0 - 98.0 FL LAB HEMETOLOGY METHOD 03/19/2024 12:29 PM EST [facility] MCH 26.3(L) 27.0 - 32.0 pcg LAB HEMETOLOGY METHOD 03/19/2024 12:29 PM [facility] MCHC 30.3(L) 32.0 - 37.0 g/dL LAB HEMETOLOGY METHOD 03/19/2024 12:29 PM EST [facility] RDW 16.0(H) 11.0 - 15.0 % LAB HEMETOLOGY METHOD 03/19/2024 12:29 PM EST [facility] Platelets 239 130 - 400 K/mcL LAB HEMETOLOGY METHOD 03/19/2024 12:29 PM [facility] MPV 10.1 7.0 - 11.0 FL LAB HEMETOLOGY METHOD 03/19/2024 12:29 PM EST [facility] NRBC 0.0 <1.0 % LAB HEMETOLOGY METHOD 03/19/2024 12:29 PM [facility] NRBC Absolute 0.00 <0.10 K/mcL LAB HEMETOLOGY METHOD 03/19/2024 12:29 PM [facility] Blood Venous blood specimen / Unknown Venipuncture / Unknown 03/19/2024 7:28 AM EST 03/19/2024 11:08 AM EST us Steven Saez MD LAB BLOOD ORDERABLES Final Resul t [facility] [address] [place] [address], * (ABNORMAL) Basic metabolic panel (03/19/2024 7:28 AM EST) Sodium 137 133 - 145 mmol/L LAB CHEMISTRY METHOD 03/19/2024 12:35 PM EST [facility] Potassium 3.9 3.5 - 5.5 mmol/L LAB CHEMISTRY METHOD 03/19/2024 12:35 PM [facility] Chloride 103 96 - 110 mmol/L LAB CHEMISTRY METHOD 03/19/2024 12:35 PM [facility] CO2 29 21 - 32 mmol/L LAB CHEMISTRY METHOD 03/19/2024 12:35 PM [facility] Anion Gap 5 3 - 11 LAB CHEMISTRY METHOD 03/19/2024 12:35 PM [facility] Glucose 139(H) 70 - 100 mg/dL LAB CHEMISTRY METHOD 03/19/2024 12:35 PM [facility] BUN 23 5 - 25 mg/dL LAB CHEMISTRY METHOD 03/19/2024 12:35 PM [facility] Creatinine 1.89(H) 0.70 - 1.30 mg/dL LAB CHEMISTRY METHOD 03/19/2024 12:35 PM [facility] eGFR 36(L) >=60 mL/min/1. 73m2 LAB CHEMISTRY METHOD 03/19/2024 12:35 PM [facility] Comment:Calculation based on the??Chronic Kidney Disease Epidemiology Collaboration (CKD-EPI) equation refit??without adjustment for race. BUN/Creatinine Ratio 12.2 LAB CHEMISTRY METHOD 03/19/2024 12:35 PM [facility] Calcium 9.0 8.5 - 10.5 mg/dL LAB CHEMISTRY METHOD 03/19/2024 12:35 PM [facility] Blood Venous blood specimen / Unknown Venipuncture / Unknown 03/19/2024 7:28 AM EST 03/19/2024 11:08 AM EST us Steven Saez MD LAB BLOOD ORDERABLES Final Resul t [facility] [address] [place] [address], [place] [phone] * (ABNORMAL) CBC auto differential (02/29/2024 9:02 AM EST) [facility] WBC 6.5 4.8 - 10.8 K/mcL LAB HEMETOLOGY METHOD 02/29/2024 11:51 AM [facility] RBC 4.20(L) 4.50 - 5.50 M/mcL LAB HEMETOLOGY METHOD 02/29/2024 11:51 AM [facility] Hemoglobin 10.9(L) 13.5 - 17.5 g/dL LAB HEMETOLOGY METHOD 02/29/2024 11:51 AM [facility] Hematocrit 36.0(L) 42.0 - 54.0 % LAB HEMETOLOGY METHOD 02/29/2024 11:51 AM [facility] MCV 85.1 79.0 - 98.0 FL LAB HEMETOLOGY METHOD 02/29/2024 11:51 AM [facility] MCH 25.8(L) 27.0 - 32.0 pcg LAB HEMETOLOGY METHOD 02/29/2024 11:51 AM [facility] MCHC 30.3(L) 32.0 - 37.0 g/dL LAB HEMETOLOGY METHOD 02/29/2024 11:51 AM [facility] RDW 16.3(H) 11.0 - 15.0 % LAB HEMETOLOGY METHOD 02/29/2024 11:51 AM [facility] Platelets 383 130 - 400 K/mcL LAB HEMETOLOGY METHOD 02/29/2024 11:51 AM [facility] MPV 10.1 7.0 - 11.0 FL LAB HEMETOLOGY METHOD 02/29/2024 11:51 AM [facility] NRBC 0.0 <1.0 % LAB HEMETOLOGY METHOD 02/29/2024 11:51 AM [facility] NRBC Absolute 0.00 <0.10 K/mcL LAB HEMETOLOGY METHOD 02/29/2024 11:51 AM [facility] Neutrophils Relative 68.3 % LAB HEMETOLOGY METHOD 02/29/2024 11:51 AM [facility] Lymphocytes Relative 20.4 % LAB HEMETOLOGY METHOD 02/29/2024 11:51 AM [facility] Monocytes Relative 6.1 % LAB HEMETOLOGY METHOD 02/29/2024 11:51 AM [facility] Eosinophils Relative 4.1 % LAB HEMETOLOGY METHOD 02/29/2024 11:51 AM [facility] Basophils Relative 0.5 % LAB HEMETOLOGY METHOD 02/29/2024 11:51 AM [facility] Immature Granulocytes Relative 0.6 % LAB HEMETOLOGY METHOD 02/29/2024 11:51 AM [facility] Neutrophils Absolute 4.45 1.50 - 7.00 K/mcL LAB HEMETOLOGY METHOD 02/29/2024 11:51 AM [facility] Lymphocytes Absolute 1.33 1.00 - 5.00 K/mcL LAB HEMETOLOGY METHOD 02/29/2024 11:51 AM [facility] Monocytes Absolute 0.40 0.20 - 1.00 K/mcL LAB HEMETOLOGY METHOD 02/29/2024 11:51 AM [facility] Eosinophils Absolute 0.27 0.00 - 0.50 K/mcL LAB HEMETOLOGY METHOD 02/29/2024 11:51 AM [facility] Basophils Absolute 0.03 0.00 - 0.20 K/mcL LAB HEMETOLOGY METHOD 02/29/2024 11:51 AM [facility] Immature Granulocytes Absolute 0.04(H) 0.00 - 0.03 K/mcL LAB HEMETOLOGY METHOD 02/29/2024 11:51 AM EST [facility] Blood Venous blood specimen / Unknown Venipuncture / Unknown 02/29/2024 9:02 AM EST 02/29/2024 11:24 AM EST Steven Saez MD LAB BLOOD ORDERABLES Final Resul t Performing Organization Address [facility]/ZIP Co de Phone Number [facility] [address] [place] [address], [place] [phone] * (ABNORMAL) Hemoglobin A1c (02/29/2024 9:02 AM EST) Pathologist [facility] Hemoglobin A1C 8.3(H) <6.5 % LAB CHEMISTRY METHOD 02/29/2024 2:01 PM [facility] Mean Bld Glu Estim. 192 mg/dL LAB CHEMISTRY METHOD 02/29/2024 2:01 PM [facility] Blood Venous blood specimen / Unknown Venipuncture / Unknown 02/29/2024 9:02 AM EST 02/29/2024 11:24 AM EST us Steven Saez MD LAB BLOOD ORDERABLES Final Resul t Performing Organization Address [facility]/ZIP Co de Phone Number [facility] [address] [place] [address], [place] [phone] * (ABNORMAL) Comprehensive metabolic panel (02/29/2024 9:02 AM EST) [facility] Sodium 139 133 - 145 mmol/L LAB CHEMISTRY METHOD 02/29/2024 1:00 PM EST [facility] Potassium 4.4 3.5 - 5.5 mmol/L LAB CHEMISTRY METHOD 02/29/2024 1:00 PM [facility] Chloride 107 96 - 110 mmol/L LAB CHEMISTRY METHOD 02/29/2024 1:00 PM [facility] CO2 26 21 - 32 mmol/L LAB CHEMISTRY METHOD 02/29/2024 1:00 PM [facility] Anion Gap 6 3 - 11 LAB CHEMISTRY METHOD 02/29/2024 1:00 PM [facility] Glucose 147(H) 70 - 100 mg/dL LAB CHEMISTRY METHOD 02/29/2024 1:00 PM [facility] BUN 27(H) 5 - 25 mg/dL LAB CHEMISTRY METHOD 02/29/2024 1:00 PM [facility] Creatinine 2.05(H) 0.70 - 1.30 mg/dL LAB CHEMISTRY METHOD 02/29/2024 1:00 PM [facility] eGFR 33(L) >=60 mL/min/1. 73m2 LAB CHEMISTRY METHOD 02/29/2024 1:00 PM [facility] Comment:Calculation based on the??Chronic Kidney Disease Epidemiology Collaboration (CKD-EPI) equation refit??without adjustment for race. BUN/Creatinine Ratio 13.2 LAB CHEMISTRY METHOD 02/29/2024 1:00 PM [facility] Calcium 8.9 8.5 - 10.5 mg/dL LAB CHEMISTRY METHOD 02/29/2024 1:00 PM [facility] AST (SGOT) 9(L) 10 - 42 unit/L LAB CHEMISTRY METHOD 02/29/2024 1:00 PM [facility] ALT (SGPT) 9(L) 10 - 60 unit/L LAB CHEMISTRY METHOD 02/29/2024 1:00 PM [facility] Alkaline Phosphatase 98 42 - 121 unit/L LAB CHEMISTRY METHOD 02/29/2024 1:00 PM [facility] Total Protein 7.2 6.0 - 8.0 g/dL LAB CHEMISTRY METHOD 02/29/2024 1:00 PM [facility] Albumin 2.5(L) 3.2 - 5.0 g/dL LAB CHEMISTRY METHOD 02/29/2024 1:00 PM [facility] Total Bilirubin 0.3 0.0 - 1.4 mg/dL LAB CHEMISTRY METHOD 02/29/2024 1:00 PM EST [facility] Blood Venous blood specimen / Unknown Venipuncture / Unknown 02/29/2024 9:02 AM EST 02/29/2024 11:24 AM EST us Steven Saez MD LAB BLOOD ORDERABLES Final Resul t [facility] [address] [place] [address], [place] [phone] from Last 3 Months Insurance MEDICAID - [place] MEDICARE Advance Directives Documents on File Type Date Recorded Patient Pocket Setter Lockstitch Expl anation Health Care Decision (hx) 11/15/2023 HE [facility]TH CARE PROXY Care Teams Cytotechnologist/Histotechnologist Relationship Specialty Start Date End Date Steven Saez MD [address] [facility] [address] [place], [phone] PCP - General Family Medicine 02/29/24
--- OUTSIDE RECORDS SUMMARY | 2024-04-15 15:06 | XMS_ITS | Encounter Summary ---
Author Organization [employer] Address [address] [facility] [address] [place] [address] Care Team Providers Care Minesweeping Officer Name Role Phone Natacha Olivas MD Primary Care Provider [phone] Rukhsana Penaloza PharmD Unavailable [phone] Ebenezer Earl MD Unavailable [phone] Reason for Visit * Reason Onset Date Comments FYI 06/11/2023 Encounter Details Date Type Department Care Team (Late st Contact Info) Description 06/11/2023 Telephone [facility] MEDICINE [address] [place] [address] Natacha Olivas MD [address] [place], [place] [phone] FYI Social History Tobacco Use Types Packs/Day Years [...] encounter Miscellaneous Notes * Telephone Encounter - Erika Knowles - 06/11/2023 1:33 PM EDT Tc from [facility] with [facility] calling to advise provider pt had a fall on his left side. States ptis asymptomatic. documented in this encounter Plan of Treatment Upcoming Encounters Date Type Department Care Team (Late st Contact Info) Description 06/02/2024 9:45 AM EDT Office Visit [facility] MEDICINE [address] [place] [phone] Natacha Olivas MD [address] [place] [address] documented as of this encounter Goals Goal [...] documented as of this encounter Care Teams Minesweeping Officer Relationship Specialty Start Date End Date Natacha Olivas MD [address] [place] [address] PCP - General Family Medicine 09/05/13 Rukhsana Penaloza, HiltonD [address] [place] [address] Pharmacist Internal Medicine 07/13/22 Ebenezer Earl MD [address] [place] [address] Urology 02/18/24 [facility] 08/08/23 Ember Krishnamurthy PA-C [facility] Endocrinology Endocrinology 02/18/24 documented as of this encounter
--- OUTSIDE RECORDS SUMMARY | 2024-04-15 15:06 | XMS_ITS | Encounter Summary ---
Author Organization [employer] Address [address] [facility] [address] [place] [address] Care Team Providers Care Pyridine Operator Name Role Phone Natacha Olivas MD Primary Care Provider [phone] Rukhsana Penaloza PharmD Unavailable [phone] Ebenezer Earl MD Unavailable [phone] Reason for Visit * Reason Onset Date Comments Verbal order 04/11/2024 Encounter Details Date Type Department Care Team ([facility] st Contact Info) Description 04/11/2024 Telephone [facility] [address] [place] [address] Natacha Olivas MD [address] [place] [address] Verbal order Social History Tobacco Use Types Packs/Day Years [...] Telephone Encounter - Sandra Bennett RN - 04/11/2024 2:37 PM EST TC placed to [facility] with [facility] to give VO for pt to start physical therapy, occupational therapyan prison beginning on 04/12/2024. * Telephone Encounter - Cheli Powers - 04/11/2024 2:31 PM EST Tc from [facility] at [facility] requesting verbal orders for physical therapy occupations therapy and prison beginning tomorrow 04/12/24 Contact [facility]enny [phone] documented in this encounter Plan of Treatment Upcoming Encounters Date Type Department Care Team (Late st Contact Info) Description 06/02/2024 9:45 AM EDT Office Visit [facility] [address] [place], [place] [phone] Natacha Olivas MD [address] [place] [address] documented as of this encounter Goals Goal [...] documented as of this encounter Care Teams Pyridine Operator Relationship Specialty Start Date End Date Natacha Olivas MD [address] [place] [address] PCP - General Family Medicine 09/05/13 Rukhsana Penaloza, PharmD [address] [place] [address] Pharmacist Internal Medicine 07/13/22 Ebenezer Earl MD [address] [place] [address] Urology 02/18/24 [facility] 08/08[facility]23 Ember Krishnamurthy PA-C [facility] Endocrinology Endocrinology 02/18/24 documented as of this encounter
--- OUTSIDE RECORDS SUMMARY | 2024-04-15 15:06 | XMS_ITS | Encounter Summary ---
Author Organization [employer] Address [address] [facility] [address] [place] [address] Care Team Providers Care Restaurant Area Director Name Role Phone Natacha Olivas MD Primary Care Provider [phone] Rukhsana Penaloza PharmD Unavailable [phone] Ebenezer Earl MD Unavailable [phone] Reason for Visit * Reason Onset Date Comments Recalls 03/17/2024 I book the appt on 06/02/24 for Physical. Encounter Details Date Type Department Care Team (Late st Contact Info) Description 03/17/2024 Telephone [facility] MEDICINE [address] [place] [address] Radha Brewer MA Recalls May (I book the appt on 06/02/24 for Physical.) Social History Tobacco Use Types Packs/Day Years [...] encounter Miscellaneous Notes * Telephone Encounter - Radha Brewer MA - 03/17/2024 2:55 PM EST I book the appt on 06/02/24 for Physical. documented in this encounter Plan of Treatment Upcoming Encounters Date Type Department Care Team (Late st Contact Info) Description 06/02/2024 9:45 AM EDT Office Visit [facility] [address] [place] [address] Natacha Olivas MD [address] [place] [address] documented as of this encounter Goals Goal Patient Goal Type Associated Problems Recent Progress Patient-Stated? Author Blood Pressure < 140/90 Blood Pressure 127/67( 024 9:50 AM EST) No Rukhsana Allen, PharmD documented as of this encounter Visit Diagnoses Not on filedocumented in this encounter Additional Health Concerns Assessment Noted Time PHQ-9 Depression Total Score: 5 05/16/19 9:17 AM EDT documented as of this encounter Care Teams Restaurant Area Director Relationship Specialty Start Date End Date Natacha Olivas MD [address] [place] [address] PCP - General Family Medicine 09/05/13 Rukhsana Penaloza PharmD [address] [place] [address] Pharmacist Internal Medicine 07/13/22 Ebenezer Earl MD [address] [place] [address] Urology 02/18/24 [facility] 08/08/23 Ember Krishnamurthy PA-C [facility] Endocrinology Endocrinology 02/18/24 documented as of this encounter
--- OUTSIDE RECORDS SUMMARY | 2024-04-15 15:06 | XMS_ITS | Encounter Summary ---
Author Organization [employer] Address [address] [place] [address] [address] [place] [address] Care Team Providers Care [employer] Name Role Phone Natacha Olivas MD Primary Care Provider [phone] Rukhsana Penaloza PharmD Unavailable [phone] Ebenezer Earl MD Unavailable [phone] Encounter Details Date Type Department Care Team (Late st Contact Info) Description 02/14/2022 Orders Only [facility] CH[facility] MED & PEDS [address] [place] [address] Anais Holguin LPN Social History Tobacco Use Types Packs/Day Years [...] Description 06/02/2024 9:45 AM EDT Office Visit [facility] MEDICINE [address] [place] [address] Natacha Olivas MD [address] [place], [place] [phone] Pending Results Name Type Priority Associated Diagnoses Date /Time PTH, Intact Without Calcium Lab Routine 08/31/2022 11:45 AM EDT documented as of this encounter Procedures Procedure Name Priority Date/Time Associated Diagnosis Comments URINALYSIS, COMPLETE Routine 08/31/2022 12:00 PM EDT CBC WITH AUTO DIFFERENTIAL Routine 08/31/2022 11:45 AM EDT PTH, INTACT WITHOUT CALCIUM Routine 08/31/2022 11:45 AM EDT HEMOGLOBIN A1C Routine 08/31/2022 11:45 AM EDT LIPID PANEL, STANDARD Routine 08/31/2022 11:45 AM EDT BASIC METABOLIC PANEL Routine 08/31/2022 11:45 AM EDT GLUCOSE, WHOLE BLOOD Routine 07/11/2022 8:40 AM EDT GLUCOSE, WHOLE BLOOD Routine 03/29/2022 9:08 AM EST documented in this encounter Results * (ABNORMAL) Urinalysis Complete (08/31/2022 12:00 PM EDT) Color Urine Yellow [facility] Appearance Urine Clear [facility] PH 5.5 5.0 - 9.0 [facility] Glucose Urine UA >=1000(A) Negative mg/dL [facility] Urine Blood Negative Negative [facility] Specific [place] - Urine 1.020 1.005 - 1.025 [facility] Urine Protein 100 (2+)(A) Neg-Trace mg/dL [facility] Urine Ketones Negative Negative mg/dL [facility] Nitrite Urine Negative Negative [facility] Leukocyte Esterase Urine Negative Negative [facility] RBC Urine 0-2 0 - 2 /HPF [facility] Urine WBC 0-5 0 - 5 /HPF [facility] Urine Squamous Epithelial Cell 0-2 0 - 2 /HPF [facility] Urine Bacteria None Seen None Seen [facility] Hyaline Casts, Urine 0-2 0 - 2 /LPF [facility] 08/31/2022 12:0 0 PM EDT 08/31/2022 1:04 PM EDT [facility] External Provider LAB URI NE ORDERABLES Edited Result - Final Performing Organization Address City/[facility]/ZIP Co de Phone Number [facility] [address] [place] [address] [phone] * Lipid Panel, Standard (08/31/2022 11:45 AM EDT) Triglycerides 196 mg/dL [facility] Comment:Desirable Triglyceri de: less than 150 mg/dLBorderline High Triglyceride 150-199 mg/dLHigh Triglyceride: 200-499 mg/dLVery High Triglyceride: greater than or equal to 5OO mg/dL Cholesterol 114 mg/dL [facility] Comment:Desirable Cholestero l: less than 200 mg/dLBorderline High Cholesterol: 200-239 mg/dLHigh Cholesterol: greater than 239 mg/dL LDL Cholesterol Calculated 39 mg/dl [facility] Comment:Desirable LDL: less than 100 mg/dLNear Optimal/Above Optimal LDL: 110- 129 mg/dLBorderline High LDL: 130-159 mg/dLHigh LDL: 160-189 mg/dLVery High LDL: greater than or equal to 190 mg/dL HDL Cholesterol 36 mg/dL [facility] Comment:Desirable HDL: great er than 40 mg/dL Note: This HDL assay may give artificially low results in patients with liver disease. 08/31/2022 11:4 5 AM EDT 08/31/2022 1:14 PM EDT [facility] External Provider LAB BLO OD ORDERABLES Final Result Performing Organization Address City/[facility]/ZIP Co de Phone Number [facility] [address] [place] [address] [phone] * (ABNORMAL) Basic Metabolic Panel (08/31/2022 11:45 AM EDT) Sodium 144 135 - 145 mmol/L [facility] Potassium 5.1 3.3 - 5.1 mmol/L [facility] Chloride 113(H) 96 - 108 mmol/L [facility] Carbon Dioxide 22 22 - 29 mmol/L [facility] Anion Gap 14 12 - 20 [facility] Urea Nitrogen (BUN) 33(H) 9 - 16 mg/dL [facility] Creatinine, Serum 2.15(H) 0.5 - 1.4 mg/dL [facility] Estimated Glomerular Filt Rate 30 [facility] Comment:NOTE: For -Am erican individuals, multiply the result by 1.210.Chronic Kidney Disease: Estimated GFR < 60 mL/min/1.82i7Otpiie Kidney Disease: Estimated GFR < 15 mL/min/1.73m2 Glucose 138(H) 60 - 115 mg/dL [facility] Calcium 10.4(H) 8.4 - 10.2 mg/dL [facility] 08/31/2022 11:4 5 AM EDT 08/31/2022 1:14 PM EDT us [facility] External Provider LAB BLO OD ORDERABLES Final Result [facility] [address] [place] [phone] * (ABNORMAL) CBC auto differential (08/31/2022 11:45 AM EDT) White Blood Count 6.5 4.8 - 10.8 X10*3/uL [facility] Red Blood Count 5.13 4.60 - 5.80 X10*6/uL [facility] Hemoglobin 14.0 14.0 - 18.0 g/dl [facility] Hematocrit 44.6 42.0 - 52.0 % [facility] Mean Corpuscular Volume 86.9 80.0 - 98.0 fL [facility] Mean Corpuscular Hemoglobin 27.3 27.0 - 33.0 pg [facility] Mean Corpuscular HGB Conc 31.4 31.0 - 36.0 g/dl [facility] Red Cell Distribution Width 15.8 11.0 - 16.0 % [facility] Platelet Count 173 160 - 400 X10*3/uL [facility] Mean Platelet Volume 11.1 9.4 - 12.4 fL [facility] Neutrophils Percent Auto 63.8 45 - 73 % [facility] Imm Gran Pct Auto 0.8(H) 0.0 - 0.4 % [facility] Lymphocytes Percent Auto 24.1 20 - 40 % [facility] Monocytes Percent Auto 8.2 2 - 11 % [facility] Eosinophils Percent Auto 2.6 0 - 4 % [facility] Basophils Percent Auto 0.5 0 - 2 % [facility] NRBC Pct Auto 0.0 0.0 - 0.2 /100WBC [facility] Neutrophils Absolute Auto 4.1 2.0 - 8.3 x10*3/uL [facility] Imm Gran Abs Auto 0.05(H) 0.00 - 0.03 X10*3/uL [facility] Lymphocytes Absolute Auto 1.6 1.2 - 4.9 X10*3/uL [facility] Monocytes Absolute Auto 0.5 0.1 - 1.2 X10*3/uL [facility] Eosinophils Absolute Auto 0.2 0.0 - 0.4 X10*3/uL [facility] Basophils Absolute Auto 0.0 0.0 - 0.2 X10*3/uL [facility] NRBC Abs Auto 0.000 0.0 - 0.012 X10*3/uL [facility] 08/31/2022 11:4 5 AM EDT 08/31/2022 1:14 PM EDT us [facility] External Provider LAB BLO OD ORDERABLES Final Result [facility] [address] [place] [phone] * Hemoglobin A1c (08/31/2022 11:45 AM EDT) Hemoglobin A1c 6.8 % [facility] Comment:Hemoglobin A1C Refer ence Range Adults: 4.8 - 6.0 % Non diabetic: < 6.0 % Goal: < 7.0 %Additional Action Suggested: > 8.0 %Note: Hemoglobin A1c results are invalid for patients with abnormal amounts of HbF. Blood transfusions may impact the HbA1c concentration in the patient sample. Estimated Average Glucose 148 mg/dL [facility] Comment:eAG = Estimated ave rage glucose which is %A1C expressed asaverage glucose, using the formula of the [id number] Glucose study (ADAG), Diabetes Care, Vol.31,#8,Sep. 2007 08/31/2022 11:4 5 AM EDT 08/31/2022 1:14 PM EDT [facility] External Provider LAB BLO OD ORDERABLES Final Result Performing Organization Address [facility] Co de Phone Number [facility] [address] [place] [address] [phone] * (ABNORMAL) Glucose, Whole Blood (07/11/2022 8:40 AM EDT) Glucose, Whole Blood 203(H) 60 - 115 mg/dL [facility] Comment:METER #: [id number] Testing performed in the Endocrinology Department [address] , [address]. 07/11/2022 8:40 AM EDT 07/11/2022 8:43 AM EDT [facility] External Provider LAB BLO OD ORDERABLES Final Result Performing Organization Address [facility]/ZIP Co de Phone Number [facility] [address] [place] [address] [phone] * (ABNORMAL) Glucose, Whole Blood (03/29/2022 9:08 AM EST) Glucose, Whole Blood 139(H) 60 - 115 mg/dL [facility] Comment:METER #: [id number] 5Testing performed in the Endocrinology Department [address] , [address], [facility]. 03/29/2022 9:08 AM EST 03/29/2022 9:12 AM EST [facility] External Provider LAB BLO OD ORDERABLES Final Result [facility] [address] [place] [address] [phone] documented in this encounter Visit Diagnoses Not on filedocumented in this encounter Care Teams [employer] Relationship Specialty Start Date End Date Natacha Olivas MD [address] [place] [address] PCP - General Family Medicine 09/05/13 Rukhsana Penaloza PharmD [address] [place] [address] Pharmacist Internal Medicine 07/13/22 Ebenezer Earl MD [address] [place] [address] [facility] Ember Krishnamurthy PA-C [facility] Endocrinology Endocrinology 02/18/24 documented as of this encounter
--- OUTSIDE RECORDS SUMMARY | 2024-04-15 15:06 | XMS_ITS | Data Portability ---
Author Organization [facility] [facility], Main Office Address [address] [place] [address] Care Team Providers Care Training And Quality Manager Name Role Phone MARCY WATSON - 2ND FLOOR OTHER RICARDA WALLACE Primary Care Provider Assessment No assessment recorded. Plan of Treatment Reminders Order Date Submit Date Provider Last Modified By Organization Details Last Modified Time Details Appointments None record ed. Lab None record ed. Referral None record ed. Procedures None record ed. Surgeries None record ed. Imaging None record ed. Medication Orders None record ed. Patient TargetsNo targets recorded. Patient InstructionsNo instructions recorded. Reason for Referral None Reported. Problems Name Problem SNOMED Code Status Onset Date Resolution Date Notes Provider Name and Address Organization Details Recorded Time Hypertensive disorder 18125185 Active 2024 Elsa Navarro NP [address] , [address], [place], [address], [facility] 5 11:03:25 Chronic kidney disease stage 3 623342697 Active 2024 Elsa Navarro NP [address] , [address], [place], [address], [facility] [employer] 5 11:03:33 Hyperlipidemia 70243114 Active 2024 Elsa Navarro NP [address], [address], [place], [address], [facility] [employer] 5 11:03:38 Insulin treated type 2 diabetes mellitus 083652774 Active 2024 Elsa Navarro NP [address], [address], [place], [address], [facility] [employer] 5 11:03:57 Kidney stone 33691810 Active 2024 Elsa Navarro NP [address], [address], [place], [address], [place] [facility] 5 11:04:21 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 785831185 Active 2024 Elsa Navarro NP [address], [address], [place], [address], [place] [facility] 5 11:04:46 Neuropathy 837697452 Active 2024 Elsa Navarro NP [address], [address], [place], [address], [place] [facility] 5 11:05:05 Mood disorder 30802977 Active 2024 Elsa Navarro NP [address], [address], [place], [address], [place] [facility] 5 11:05:17 Pyelonephritis 92195124 Active 2024 Elsa Navarro NP [address], [address], [place], [address], [place] [facility] 5 11:05:45 Acute kidney injury 21980832 Active 2024 Elsa Navarro NP [address] [facility], [address], [place], [address], [facility] 5 11:05:53 Problem Notes None recorded. Medical Equipment None Reported. Allergies No known drug allergies Medications Not known to be on any medication Vitals Date Recorded Heart rate Respiratory rate Body temperature Oxygen saturation Oxygen saturation in Arterial blood by Pulse oximetry Systolic blood pressure Diastolic blood pressure Provider Name and Address Organization Details Last Updated DateTime 5 83 /min 18 /min 98.2 [degF] 96 % 96 % 122 mm[Hg] 66 mm[Hg] Elsa Navarro NP [address] [facility], [address], [place], [address], [facility] 5 17:05:43 Date Recorded Body weight Heart rate Respiratory rate Body temperature Oxygen saturation Oxygen saturation in Arterial blood by Pulse oximetry Systolic blood pressure Diastolic blood pressure Provider Name and Address Organization Details Last Updated DateTime 5 10840.4 9 g 77 /min 18 /min 98 [degF] 96 % 96 % 124 mm[Hg] 58 mm[Hg] Elsa Navarro NP [address] [facility], [address], [place], [address], [facility] 5 14:22:40 Date Recorded Body weight Heart rate Respiratory rate Body temperature Oxygen saturation Oxygen saturation in Arterial blood by Pulse oximetry Systolic blood pressure Diastolic blood pressure Provider Name and Address Organization Details Last Updated DateTime 5 39377.0 8 g 78 /min 18 /min 98.2 [degF] 96 % 96 % 135 mm[Hg] 81 mm[Hg] Elsa Navarro NP [address] [facility], [address], [place], [address], [facility] 5 10:53:38 Date Recorded Body weight Heart rate Respiratory rate Body temperature Oxygen saturation Oxygen saturation in Arterial blood by Pulse oximetry Systolic blood pressure Diastolic blood pressure Provider Name and Address Organization Details Last Updated DateTime 5 33906.0 8 g 72 /min 16 /min 97.6 [degF] 97 % 97 % 124 mm[Hg] 68 mm[Hg] Elsa Navarro NP [address] [facility], [address], [place], [address], [facility] 5 12:54:57 Date Recorded Body weight Heart rate Respiratory rate Body temperature Oxygen saturation Oxygen saturation in Arterial blood by Pulse oximetry Systolic blood pressure Diastolic blood pressure Provider Name and Address Organization Details Last Updated DateTime 5 93083.0 8 g 78 /min 18 /min 97 [degF] 96 % 96 % 129 mm[Hg] 56 mm[Hg] Elsa Navarro NP [address] [facility], [address], [place], [address], [facility] 5 18:17:47 Social History Question Answer Notes LastModified by Organizat ion Details LastModified Time Tobacco Smoking Status Never Smoker Elsa Navarro NP [address] [facility], [address], [place], [address], [facility] 02/29/2024 10:59:02 Do You Have An Advance Directive? Yes Information not available 02/29/2024 What Is Your Level Of Alcohol Consumption? None Information not available 02/29/2024 What Is Your Code Status? Full Code Information not available 02/29/2024 Where Do You Live? Apartment Handicap Apart Information not available 02/29/2024 What Was The Date Of Your Most Recent Tobacco Screening? 02/29/2024 Information not available 02/29/2024 Do You Have An Out Of Hospital DNR? No Information not available 02/29/2024 What Is Your Relationship Status? Information not available 02/29/2024 Do You Use Any Illicit Or Recreational Drugs? No Information not available 02/29/2024 Has Tobacco Cessation Counseling Been Provided? No Information not available 02/29/2024 Do You Have Any Dietary Restrictions? No Information not available 02/29/2024 Sex: Male Functional Status None recorded. Mental Status None recorded. Family History Nothing Reported Notes:Mother: DM, copd, HF F ather: Suicide ETOH 9 other sibliings: 4 2 brothers HF sister: dementia sister: in car accident Medical History No medical history recorded. Immunizations Vaccine Type Date Status Note Provider Nam e and Address Organization Details Recorded Time HepB-CpG 3 completed Nayan Mcguire [facility] 02/29/2024 13:28:40 Tdap 3 completed Nayan Mcguire [facility] 02/29/2024 13:28:53 Tdap 3 completed Nayan Mcguire [facility] 02/29/2024 13:28:57 Td(adult) unspecified formulation 3 completed Nayan Mcguire [facility] 02/29/2024 13:29:13 Pneumococcal conjugate PCV 13 5 completed Nayan Mcguire [facility] 02/29/2024 13:29:28 pneumococcal polysaccharide PPV23 7 completed Nayan Mcguire [facility] 02/29/2024 13:29:44 influenza, unspecified formulation 0 completed Nayan Jacks-Mazariegos null, [facility] 02/29/2024 13:29:58 influenza, unspecified formulation 1 completed Nayan Jacks-Mazariegos null, [facility] 02/29/2024 13:30:02 influenza, unspecified formulation 2 completed Nayan Jacks-Mazariegos null, [facility] 02/29/2024 13:30:07 influenza, unspecified formulation 3 completed Nayan Jacks-Mazariegos null, [facility] 02/29/2024 13:30:12 influenza, unspecified formulation 4 completed Nayan Jacks-Mazariegos null, [facility] 02/29/2024 13:30:18 influenza, unspecified formulation 4 completed Nayan Jacks-Mazariegos null, [facility] 02/29/2024 13:30:26 SARS-COV-2 (COVID-19) vaccine, UNSPECIFIED 1 completed Nayan Jacks-Mazariegos null, [facility] 02/29/2024 13:30:41 SARS-COV-2 (COVID-19) vaccine, UNSPECIFIED 1 completed Nayan Jacks-Mazariegos null, [facility] 02/29/2024 13:30:46 SARS-COV-2 (COVID-19) vaccine, UNSPECIFIED 1 completed Nayan Jacks-Mazariegos null, [facility] 02/29/2024 13:30:50 SARS-COV-2 (COVID-19) vaccine, UNSPECIFIED 2 completed Nayan Jacks-Mazariegos null, [facility] 02/29/2024 13:30:54 SARS-COV-2 (COVID-19) vaccine, UNSPECIFIED 4 completed Nayan Jacks-Mazariegos null, [facility] 02/29/2024 13:31:00 zoster, unspecified formulation 1 completed Nayan Jacks-Mazariegos null, [facility] 02/29/2024 13:31:14 zoster, unspecified formulation 2 completed Nayan Jacks-Mazariegos null, [facility] 02/29/2024 13:31:20 Past Encounters Encounter ID Performer Location Encounter Start Date Encounter Closed Date Diagnosis/Indication Diagnosis SNOMED-CT Code Diagnosis ICD10 Code Diagnosis Note [id number] Elsa Navarro NP [address] [address] 02/29/2024 10:11:12 03/04/2024 09:01:38 Acute kidney injury 87167686 N17.9 pt with AKIno labs provided from hospital (?baseline or bmp)report ed resovled in [facility] get bmp weekly wed x 3 weeks Pyelonephritis 88531281 N16 with leukocysto is in hosp resolvedCT of abd and pelvis found persistant left perinephir ic and periureter al starnding moderate left hydrourete r nephrosis, concerning for ureteral stricture or malignancy .Plan is to fu outpt with Dr Earl urology for ureteral stricture vs malignancy fu with possible cystoscopy .monitor for s/s of pain/nause a/vomiting /dysuria.. ..started on sodium bicarbonat e 650 [facility] hospbmp, cbc weekly Insulin tr eated type 2 diabetes mellitus 632623193 Z79.4 hx ofcont dm medication slispor 4 units sc tid with BSglargine (toujeo)15 units sc qhsjardian ce 25 mg po qdmonitor BS and adjust meds as neededhaic x1 ordered Hypertensive disorder 38 384277 I10 amlodipine 5 mg po qhscarvedi lol 6.25 mg po bidwmmonit or bps daily Chronic ki dney disease stage 3 521657326 N18.30 AMER[facility] on CKD in hospunclea r of baseline CKD levelsawai t labs to come backbmp weekly x 3 weeks Hyperlipidemia 74602725 E78.5 not on meds for thismonito r Kidney stone 78615093 N2 0.0 hx of Right side d cerebral hemisphere cerebrovascular accident 255288233 I63.9 pt with hx of left sided weakness sp right sided cva approx 1 year agohas w/c, hosp bed, and walker with 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 die 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 at home and family involvedPT OT eval and treat Neuropathy 022424365 G62 .9 gabapentin 300 mg po qhsmonitor Mood disorder 94188078 F 40 hx of not on meds for this Asthenia 39133644 R53.1 pt with asthenia from recent hospPT OT eval and treatmonit or [id number] Steven Saez MD [facility] [address] 03/01/2024 10:13:39 03/04/2024 09:34:04 Pyelonephritis 96666566 N16 see HPI now to complete course of Abxadd probioticc oncern for underlying stricture vs malignancy to f/u with urology for cystoscopy Acute kidney injury 1466 9001 N17.8 ARF on CRFavoid nephrotoxi c meds as ablerepeat renal function labsreques t results from hospital Insulin tr eated type 2 diabetes mellitus 865855030 E11.42 continue out patient medsgabape ntin 300 mg qhs for neuropathi c painmonito r blood glucose and need to titrate Hypertensive disorder 38 535569 I10 norvasc 5 mg qdcoreg 6.25 mg bidmonitor bp and need to titrate Chronic ki dney disease stage 3 133005204 N18.31 see aboveunsur e of baseline with prior results requested Right side d cerebral hemisphere cerebrovascular accident 333556942 I63.9 prior cva with residual left sided weakness added to PMH Asthenia 12704598 R53.1 PT OT eval and treatmonit or fall risk and need for increased support in community [id number] [facility] [address] [address] 03/07/2024 09:03:20 03/10/2024 16:22:52 Pyelonephritis 84869192 N16 resolvedco mpleted course of Abx with probioticc oncern for underlying stricture vs malignancy to f/u with urology for cystoscopy outpt Acute kidney injury 1466 9001 N17.8 ARF on CRFavoid nephrotoxi c meds as ablerepeat renal function labsmonito r Chronic ki dney disease stage 3 987369164 N18.31 see aboveunsur e of baseline with prior results requested Asthenia 25830292 R53.1 PT OT eval and treatmonit or fall risk and need for increased support in community Hypertensive disorder 38 633392 I10 contnorvas c 5 mg qdcoreg 6.25 mg bidmonitor bp and need to titrate Right side d cerebral hemisphere cerebrovascular accident 944241665 I63.9 prior cva with residual left sided weakness added to PMH Insulin tr eated type 2 diabetes mellitus 776366372 Z79.4 hx of cont dm medication slispro 4 units sc tid with BSglargine (toujeo)15 units sc qhsjardian ce 25 mg po qdmonitor BS and adjust meds as needed Neuropathy 924138233 G62 .9 gabapentin 300 mg po qhsmonitor Mood disorder 70665662 F 40 hx of not on meds for thismonito r for need to have psych eval prn [id number] Elsa Navarro NP [facility] [address] [address] 03/14/2024 16:28:43 03/18/2024 11:20:41 Acute kidney injury 36660682 N17.8 ARF on CRFavoid nephrotoxi c meds as ablerepeat renal function labs next weekmonito r Chronic ki dney disease stage 3 876741148 N18.31 see aboveunsur e of baseline with prior results requested Pyelonephritis 53554560 N16 resolvedco mpleted course of Abx with probioticc oncern for underlying stricture vs malignancy to f/u with urology for cystoscopy outpt ? if this is scheduled- nsg to look into Asthenia 99191910 R53.1 PT OT eval and treatmonit or fall risk and need for increased support in community Hypertensive disorder 38 353373 I10 bp stablecont norvasc 5 mg qdcoreg 6.25 mg bidmonitor bp and need to titrate Right side d cerebral hemisphere cerebrovascular accident 607946013 I63.9 prior cva with residual left sided weakness added to PMH Insulin tr eated type 2 diabetes mellitus 699784239 Z79.4 no BS recorded in pcc, will reorder todayhx of cont dm medication slispro 4 units sc tid with BSglargine (toujeo)15 units sc qhsjardian ce 25 mg po qdmonitor BS and adjust meds as needed Neuropathy 305791522 G62 .9 gabapentin 300 mg po qhsmonitor [id number] Elsa Navarro NP [facility] [address] [address] 03/21/2024 08:26:58 03/24/2024 14:51:48 Acute kidney injury 60096625 N17.8 baseline or better than as aboveARF on CRFavoid nephrotoxi c meds as ablemonito r Chronic ki dney disease stage 3 397008698 N18.31 see aboveunsur e of baseline with prior results requested Pyelonephritis 07638166 N16 resolved, asymptomat iccomplete d course of Abx with probioticc oncern for underlying stricture vs malignancy to f/u with urology for cystoscopy outpt ? 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 974537851 I63.9 prior cva with residual left sided weakness added to PMH Insulin tr eated type 2 diabetes mellitus 641444858 Z79.4 BS controlled on belowhx of cont dm medication slispro 4 units sc tid with BSglargine (toujeo)15 units sc qhsjardian ce 25 mg po qdmonitor BS and adjust meds as needed Neuropathy 541909372 G62 .9 gabapentin 300 mg po qhsmonitor [id number] Elsa Navarro [facility] [address] [address] 03/27/2024 10:52:54 03/28/2024 13:39:21 Asthenia 14202240 R53.1 contPT OT eval and treat for strengthen ing, gait, mobility, safety, balance, etc...erik tor fall risk and need for increased support in community and need for services Acute kidney injury 1466 9001 N17.8 resolvingb aseline or better than as aboveARF on CRFavoid nephrotoxi c meds as ablemonito r Chronic ki dney disease stage 3 206793587 N18.31 see aboveunsur e of baseline with prior results requested Pyelonephritis 23687048 N16 resolved, asymptomat ic while herecomple rafael course of Abx with probioticc oncern for underlying stricture vs malignancy to f/u with urology for cystoscopy outpt? if this is scheduled- nsg to look into Hypertensive disorder 38 743354 I10 bp stablecont norvasc 5 mg qdcoreg 6.25 mg bidmonitor bp and need to titrate Insulin tr eated type 2 diabetes mellitus 125574327 Z79.4 BS controlled 100-200s latelyhx of cont dm medication slispro 4 units sc tid with BSglargine (toujeo)15 units sc qhsjardian ce 25 mg po qdmonitor BS and adjust meds as needed Neuropathy 951939497 G62 .9 gabapentin 300 mg po qhsmonitor Right side d cerebral hemisphere cerebrovascular accident 738947505 I63.9 prior cva with residual left sided weaknessPT OT eval and treatmonit or Mood disorder 76200458 F 40 hx of not on meds for thismonito r for need to have psych eval prn [id number] Elsa Navarro NP [facility] [address] [address] 03/31/2024 12:54:20 04/02/2024 15:56:24 Right sided cerebral hemisphere cerebrovascular accident 309298509 I63.9 prior cva with residual left sided weaknessPT OT treat outpt prnsupport selena caremonito r Asthenia 39852062 R53.1 contPT OT prn treat for strengthen ing, gait, mobility, safety, balance, etc...erik tor fall riskhas extrusion die 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 and help with family at home, currently on hold as extrusion die 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 not availmonit or Pyelonephritis 06451424 N16 resolved, asymptomat ic while herecomple rafael course of Abx with probioticc oncern for underlying stricture vs malignancy to f/u with urology for cystoscopy outpt Acute kidney injury 1466 9001 N17.8 resolvedba seline or better than as aboveARF on CRFavoid nephrotoxi c meds as ablemonito r Chronic ki dney disease stage 3 440694768 N18.31 see aboveunsur e of baseline with prior results requested Hypertensive disorder 38 407363 I10 bp stablecont norvasc 5 mg qdcoreg 6.25 mg bidmonitor bp Insulin tr eated type 2 diabetes mellitus 485151931 Z79.4 BS controlled 100-200s latelyhx ofcont dm medication slispro 4 units sc tid with BSglargine (toujeo)15 units sc qhsjardian ce 25 mg po qdmonitor BS and adjust meds as needed Neuropathy 701029626 G62 .9 gabapentin 300 mg po qhsmonitor Mood disorder 49850157 F 40 has been stable herehx of not on meds for thismonito r for need to have psych eval prn [id number] Elsa Navarro NP [facility] [place] [address] [place] [address] 04/04/2024 15:46:41 04/07/2024 10:16:54 Right sided cerebral hemisphere cerebrovascular accident 093444999 I63.9 prior cva with residual left sided weaknessPT OT treat outpt prnsupport selena caremonito r Recurrent falls 68139036 2 R29.6 pt with fall on 04/04 while self transferri ng and slid to [facility] per nsg protocolvi tals stable, no injuries Health Concerns Section Related Observation LastModified by Organization Detai ls LastModified Time None Recorded Concern Status LastModified by Organization Details LastModified Time None Recorded Advance Directives Directive Y: Payers Encounter Date Sequence Insurance Name Policy Number Policy Landers Covered Member ID Landers Member ID Guarantor Name 03/14/2024 2 [place] [facility] Jaramillo [id number] [facility] Jaramillo 03/14/2024 1 [place] [employer] [facility] Jaramillo [id number] Hector Jaramillo 03/21/2024 2 [place] [facility]amillo [id number] [facility] Jaramillo 03/21/2024 1 [place] [employer] [facility] [id number] Hector Jaramillo 03/27/2024 2 [place] [facility] [id number] [facility] 03/27/2024 1 [place] [employer] [facility] Jaramillo [id number] Hector Jaramillo 03/31/2024 2 [place] [facility] Jaramillo [id number] [facility] Jaram[facility] 03/31/2024 1 [place] [facility] Jaramillo [id number] Hector Jaramillo 04/04/2024 2 [place] [facility] Jaramillo [id number] [facility] Jaramillo 04/04/2024 1 [place] [facility] Jaramillo [id number] [facility] Jaram[facility] Notes Date Note Type Note Provider Name and Address Organization Details Recorded Time 03/14/2024 text/html Hector is seen f or an acute rounding visit. PMH: HTN, CKD3, HLD, IDDM2, nephrolithiasis, CVA with left sided hemiparesis, neuropathy, and mood disorder Per therapy notes he is working on multiple strengthening exercises and participating and walker with walker. On exam, he is sitting up in bed and feeling great . No complaints and no concerns today. He reports he wants more therapy while here. A GI virus is on the unit and he remains asymptomatic. On review of labs last ones on 02/28 will reorder for next week x1.Needs fu with urology? if this is scheduled will reorder. He is a 78 yo male initially presented to [facility] 02/23-02/28/24 with severe left-sided weakness, polyuria, fatigue, nonradiating abd pain diagnosed with AMERICO on CKD, pyelonephritis, and leukocystois of 19.7 [facility] rehab [facility] Left hydronephrosis eval'd by urology with concern for underlying malignancy and rec to fu outpt for cystoscopy. GOD[place]: high riskMOLST: full code 02/29/24BIMS Elsa Navarro NP [address] [facility], [address], [place], [address], [facility] [employer] 03/14/2024 17:15:44 03/21/2024 text/html Pt is seen for a n acute rounding visit. PMH: HTN, CKD3, HLD, IDDM2, nephrolithiasis, CVA with left sided hemiparesis, neuropathy, and mood disorder on exam, He is smiling and states he is getting much better with therapy. He remain with notable left sided weakness and decreased rom of left arm. He is euvolemic and reports no diarrhea, nausea or vomiting. No concerns from nursing today. Labs reviewed and stable with ckd. of note:pt is a 78 yo male with pmh above who presented to [facility] 02/23-02/28/24 with severe left-sided , polyuria, fatigue, non radiating abd pain diagnosed with AMERICO on CKD, pyelonephritis, and leukocystois of 19.7 [facility] rehab [facility]. Left hydronephrosis eval'd by urology with concern for underlying malignancy and rec to fu outpt for cystoscopy. [place]: high riskMOLST: full code 02/29/24BIUT Elsa Navarro NP [address] [facility], [address], [place], [address], [facility] 03/21/2024 14:30:52 03/27/2024 text/html Pt is seen for a 30 day routine rounding visit. PMH: HTN, CKD3, HLD, IDDM2, nephrolithiasis, CVA with left sided hemiparesis, neuropathy, and mood disorder Hector is a 78 yo male with pmh above who presented to [facility] 02/23-02/28/24 with severe left-sided , polyuria, fatigue, non radiating abd pain diagnosed with AMERICO on CKD, pyelonephritis, and leukocystois of 19.7. Left hydronephrosis eval'd by urology with concern for underlying malignancy and rec to fu outpt for cystoscopy. He came here for rehab [facility] On exam, Pt is sitting up in wheelchair in NAD. He is euvolemic and reports no diarrhea, nausea or vomiting. He denies pain and reports feeling well. He continues to work with therapy and doing well making progress. According to the 03/26 note he is a minimal assist and requires help with weight bearing and residual left sided weakness. No concerns from nursing today.Labs reviewed and stable with ckd.BS reviewed 100-200s and stable. Overall, weight stable. Doing well. GOD[place]: high riskMOLST: full code 02/29/24BIMS Elsa Navarro NP [address] [facility], [address], [place], [address], [facility] 03/27/2024 11:26:57 03/31/2024 text/html Pt is seen for a acute summary visit. PMH: HTN, CKD3, HLD, IDDM2, nephrolithiasis, CVA with left sided hemiparesis, neuropathy, and mood disorder Pt is a 78 yo male with pmh above who presented to [facility] 02/23-02/28/24 with severe left-sided , polyuria, fatigue, non radiating abd pain diagnosed with AMERICO on CKD, pyelonephritis, and leukocytosis of 19.7. Left hydronephrosis eval'd by urology with concern for underlying malignancy and rec to fu outpt for cystoscopy. While in the hospital all meds continued and started on sodium bicarbonate. Since he came here for rehab and continued care at [facility] he has done well. Labs stable and wbc count resolved. He finished his abx. Since here at [facility] he continues to work with therapy and doing well making progress and is a minimal assist and requires help with weight bearing and residual left sided weakness. His BS are stable 100s. No concerns from nursing. Vitals stable. No medication changes while here. On exam, Hector is smiling and reports he is happy to go home. He remains with some left side weakness, however improved from admission here. 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 Pt is lying in bed NAD. He will go home with family later today. He is aware of need to fu with pcp and urology outpt. No abdominal pain or difficulty urinating. he originally was planned to go home, however PROFESS[employer] OF MATHEMAT[employer] services not available for him and dc held GODDARD: high riskMOLST: full code 02/29/24BIMS Elsa Navarro, GUNNER [address] [facility], [address], [place], [address], [employer] 04/02/2024 11:38:22 04/04/2024 text/html Pt is seen for a acute summary visit. PMH: HTN, CKD3, HLD, IDDM2, nephrolithiasis, CVA with left sided hemiparesis, neuropathy, and mood disorder Pt seen for unwitnessed fall today. He reports self transferring and slid to ground. No injuries noted. Able to move extremities without difficulty at baseline with left sided weakness. Denies head strike. GODDARD: high riskMOLST: full code 02/29/24BIMS Elsa Navarro NP [address] [facility], [address], [place], [address], [place] [employer] 04/04/2024 18:21:04
--- OUTSIDE RECORDS SUMMARY | 2024-04-15 15:06 | XMS_ITS | Encounter Summary ---
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
--- OUTSIDE RECORDS SUMMARY | 2024-04-15 15:06 | XMS_ITS | Encounter Summary ---
Author Organization [facility], Address [address] [place] [address] Phone Care Team Providers Care Offset Second Press Operator Name Role Phone Natacha Olivas MD Primary Care Provider U bran Encounter Details Date Type Department Care Team (Late st Contact Info) Description 11/01/2021 Documentation Only [facility], [address] [place] [phone] Ana Browning PA Social History Tobacco Use Types Packs/Day Years [...] on filedocumented in this encounter Care Teams Offset Second Press Operator Relationship Specialty Start Date End Date Natacha Olivas MD PCP - General 12/24/18 documented as of this encounter
--- OUTSIDE RECORDS SUMMARY | 2024-04-15 15:06 | XMS_ITS | Encounter Summary ---
Author Organization [employer] Address [address] [facility] 7t [place] [address] Care Team Providers Care Laminator Hand Name Role Phone Natacha Olivas MD Primary Care Provider [phone]- [phone] Rukhsana Penaloza PharmD Unavailable +1- [phone] Ebenezer Earl MD Unavailable [phone] Reason for Visit * Reason Onset Date Comments Call Back Request 10/18/2023 Encounter Details Date Type Department Care Team (Late st Contact Info) Description 10/18/2023 Telephone [facility] [address] [place] [address] Natacha Olivas MD [address] [place], [place] [phone] Call Back Request Social History Tobacco Use [...] Telephone Encounter - Sandra Bennett RN - 10/18/2023 4:20 PM EDT TC placed to [facility] nurse Daryl to inform of pt current dosage for Toujeo SoloStar and Insulin Lispro. Daryl also informed of how many units to administer for each insulin based on current prescription. Daryl would also like PCP to know that pt has been constipated since Sunday and would like toknow if Miralax is safe for pt to take. If so, can it be prescribed. * Telephone Encounter - Pablo Pardo - 10/18/2023 2:28 PM EDT Tc from Daryl with care tenders requesting call back to clarify on insulin dosage. Please contact Daryl at [phone]. documented in this encounter Plan of Treatment Upcoming Encounters Date Type Department Care Team (Late st Contact Info) Description 06/02/2024 9:45 AM EDT Office Visit [facility] [address] [place] [address] Natacha Olivas MD [address] [place] [address] documented as of this encounter Goals Goal [...] documented as of this encounter Care Teams Laminator Hand Relationship Specialty Start Date End Date Natacha Olivas MD [address] [place] [address] PCP - General Family Medicine 09/05/13 Rukhsana Penaloza, PharmD [address] [place] [address] Pharmacist Internal Medicine 07/13/22 Ebenezer Earl MD [address] [place] [address] Urology 02/18/24 [facility] 08/08/23 Ember Krishnamurthy PA-C [facility] Endocrinology Endocrinology 02/18/24 documented as of this encounter
--- OUTSIDE RECORDS SUMMARY | 2024-04-15 15:06 | XMS_ITS | Encounter Summary ---
Author Organization [employer] Address [address] [place] [address] 7t [place] [address] Care Team Providers Care R Developer Name Role Phone Natacha Olivas MD Primary Care Provider + [phone] Rukhsana Penaloza PharmD Unavailable Ebenezer Earl MD Unavailable [phone] Encounter Details Date Type Department Care Team (Late st Contact Info) Description 03/05/2022 Abstract [facility] [address] [place] [address] Natacha Olivas MD [address] [place] [address] [phone] Social History Tobacco Use Types Packs/Day Years [...] Description 06/02/2024 9:45 AM EDT Office Visit [facility] [address] [place] [phone] Natacha Olivas MD [address] [place] [address] [phone] documented as of this encounter Procedures Procedure Name Priority Date/Time Associated Diagnosis Comments HM COLONOSCOPY Routine 01/06/2021 documented in this encounter Results * Colonoscopy (01/06/2021) Colonoscopy tubular adenoma with Dr. Sands us Historical Provider HEALTH MAINTENANCE Final Result documented in this encounter Visit Diagnoses Not on filedocumented in this encounter Care Teams R Developer Relationship Specialty Start Date End Date Natacha Olivas MD [address] [place] [address] PCP - General Family Medicine 09/05/13 Rukhsana Penaloza, HiltonD [address] [place] [address] Pharmacist Internal Medicine 07/13/22 Ebenezer Earl MD [address] [place] [address] Urology 02/18/24 [facility] 08/08/23 Ember Krishnamurthy PA-C [facility] Endocrinology Endocrinology 02/18/24 documented as of this encounter
--- OUTSIDE RECORDS SUMMARY | 2024-04-15 15:06 | XMS_ITS | Encounter Summary ---
Author Organization [employer] Address [address] [place] [address] 7t [place] [address] Care Team Providers Care Fish Egg Packer Name Role Phone Natacha Olivas MD Primary Care Provider + [phone] Rukhsana Penaloza PharmD Unavailable [phone] Ebenezer Earl MD Unavailable [phone] Encounter Details Date Type Department Care Team (Latest Contact Info) Description 03/11/2019 Abstract [facility] Dental, Provider, DDS Social History Tobacco [...] 9:45 AM EDT Office Visit [facility] [address] [place] [address] Natacha Olivas MD [address] [place] [address] documented as of this encounter Visit Diagnoses Not on filedocumented in this encounter Care Teams Fish Egg Packer Relationship Specialty Start Date End Date Natacha Olivas MD [address] [place] [address] PCP - General Family Medicine 09/05/13 Rukhsana Penaloza, PharmD [address] [place] [address] Pharmacist Internal Medicine 07/13/22 Ebenezer Earl MD [address] [place] [address] Urology 02/18/24 [facility] 08/08/23 Ember Krishnamurthy PA-C [facility] Endocrinology Endocrinology 02/18/24 documented as of this encounter
--- OUTSIDE RECORDS SUMMARY | 2024-04-15 15:06 | XMS_ITS | Clinical Summary ---
Author Organization [facility], Address [address] [place] [address] [place] [address] Phone Care Team Providers Care Explosive Operator Fuse Name Role Phone Natacha Olivas MD Primary Care Provider U navailable Allergies No known active allergies Medications omeprazole (PriLOSEC) [address] capsule Comments: Filled Date: Nov 09 2017 12:00AM Patient Notes: TAKE 1 CAPSULE BY MOUTH EVERY MORNING (CUANDO SEA NECESARIO) Duration: 8 Active amLODIPine (NORVASC) 10 MG tablet Take by mouth 1 (one) time each day Active atorvastatin (LIPITOR) 40 MG tablet Take 40 mg by mouth at bed time Active chlorthalidone (HYGROTON) 25 MG tablet Take 25 mg by mouth 1 (one) time each day 8 Active Dulaglutide (TRULICITY) 0.75 MG/0.5ML solution pen-injector Comments: Filled Date: Nov 20 2017 12:00AM Patient Notes: INJECT ONE PEN (=0.75MG) SUBCUTANEOUSLY ONCE A WEEK DIRECTED Duration: 8 Active insulin aspart (NovoLOG FLEXPEN) 100 UNIT/ML injection Comments: Filled Date: Oct 30 2017 12:00AM Patient Notes: INJECT 40 UNITS THREE TIMES DAILY BEFORE MEALS Duration: 8 Active loratadine (CLARITIN) 10 MG tablet Comments: Filled Date: Nov 08 2017 12:00AM Patient Notes: TAKE 1 TABLET EVERY MORNING Duration: 8 Active Insulin Lispro, 1 Unit Dial, (HumaLOG KWIKPEN) 100 UNIT/ML solution pen-injector Inject 40 Units under the skin 3 (three) times a day before meals Active pantoprazole (PROTONIX) 40 MG EC tablet Take 40 mg by mouth twice a day Do not crush, chew, or split. Active Insulin Glargine, 2 Unit Dial, (Toujeo Max SoloStar) 300 UNIT/ML solution pen-injector Inject 108 Units under the skin daily Active linaGLIPtin (Tradjenta) 5 MG tablet Take 1 tablet by mouth daily Active carvedilol (COREG) 3.125 MG tablet Take 3.125 mg by mouth in the morning and 3.125 mg in the evening. Take with meals. Active losartan (COZAAR) 100 MG tablet TAKE 1 TABLET BY MOUTH EVERY EVENING 90 tablet 3 3 Active furosemide (LASIX) 20 MG tablet Take 1 tablet (20 mg total) by mouth in the morning and 1 tablet (20 mg total) in the evening. 180 tablet 1 3 Active Empagliflozin (Jardiance) 25 MG tablet Take 25 mg by mouth 1 (one) time each day 90 tablet 3 4 025 Active Active Problems Problem Noted Date Diagnosed Date Hypervolemia 09/05/2022 Chronic kidney disease, stage 4 (severe) 022 Stage 3b chronic kidney disease 02/26/2019 Hypertensive heart and renal disease with (congestive) heart failure 02/26/2019 Renal disorder due to type 2 diabetes mellitus 0 02/26/2019 Type 2 diabetes mellitus Hypertension Resolved Problems Problem Noted Date Diagnosed Date Resolved Date Hyperlipidemia 02/26/2019 10/04/2020 Family History Medical History Relation Comments Heart disease Sibling Relation Status Comments Sibling Social History Tobacco Use Types Packs/Day Years Used Date Smoking Tobacco: Never Tobacco Cessation:Counseling Given: Not Answered Alcohol Use Standard Drinks/Week Comments No 0 (1 standard drink = 0.6 oz pur e alcohol) Sex and Gender Information Value Date Recorded Sex Assigned at Not on file Legal Sex Male 4:31 PM EST Gender Identity Not on file Sexual Orientation Not on file Last Filed Vital Signs Vital Sign Reading Time Taken Comments Blood Pressure 148/58 09/05/2022 5:42 PM EDT Pulse - - Temperature - - Respiratory Rate - - Oxygen Saturation - - Inhaled Oxygen Concentration - - Weight 85.1 kg (187 lb 9.6 oz) 09/05/2022 5:42 P M EDT Height 165.1 cm (5' 5 ) 09/05/2022 5:42 PM EDT Body Mass Index 31.22 09/05/2022 5:42 PM EDT Plan of Treatment Health Maintenance Due Date Last Done Comments Diabetes: Ophthalmology Exam 02/26/2019 Diabetes: Pedal Pulse Checked 02/26/2019 Diabetes: Sensory Foot Exam 02/26/2019 Diabetes: Visual Foot Exam 02/26/2019 Diabetes: Hemoglobin A1C 12/01/2022 023, 12/23/2021, 11/08/2021, Additional history exists Influenza Vaccine (#1) 2023 , 11/24/2019, 01/09/2019, Additional history exists Hepatitis B Vaccine Aged Out 06/11/2012, 10/17/2010, 09/19/2010 No longer eligible based on patient's age to complete this topic Pneumococcal Vaccine: 65+ Years Completed 11/17/2016, 12/27/2014, 12/26/2014, Additional history exists Procedures Procedure Name Priority Date/Time Associated Diagnosis Comments HEMOGLOBIN A1C Routine 12/23/2021 9:54 AM EDT Chronic kidney disease, stage 4 (severe) (HCC) from Last 3 Months or Most Recently Relevant to Health Maintenance Results * (ABNORMAL) Hemoglobin A1c (12/23/2021 9:54 AM EDT) Hemoglobin A1C 7.9(H) (4.0-5.6) % [facility] Comment: MONITORING: In known diabetic patients, hemoglobin A1c targets should be discussed with health care provider. DIAGNOSTIC USE: ??The [place] Diabetes Association (ADA) and the World Health Organization (WHO) recommend the use of HbA1c to diagnose diabetes using a threshold of 6.5%. Patients who have an HbA1c between 5.7% and 6.4% are considered at increased risk for developing diabetes in the future. CAUTION: Falsely low HbA1c results may be observed in patients with hemolytic anemia, homozygous forms of abnormal hemoglobin (e.g. SS, CC, SC), , recent blood loss or hemoglobin F greater than 7%. Fructosamine may be used as an alternate test in these cases. REFERENCE: ADA: Standards of Medical Care in Diabetes 2020, The Journal of Clinical and Applied Research and Education Volume 43, Supplement 1 Testing performed or reported by [facility], a Service of [facility], [address] [place] [id number] Antonella Bauman MD, Building Custodian [facility]# [id number] Blood (Blood, Venous) 12/23/2021 9:54 AM EDT 12/23/2021 9:55 AM EDT Ana SANCHEZ LAB BLOOD ORDERABLES Final Re sult [facility] from Last 3 Months or Most Recently Relevant to Health Maintenance Insurance MEDICAID [place] [facility] Care Teams Explosive Operator Fuse Relationship Specialty Start Date End Date Deisy, Natacha Hickman MD PCP - General 12/24/18
--- OUTSIDE RECORDS SUMMARY | 2024-04-15 15:06 | XMS_ITS | Encounter Summary ---
Author Organization [employer] Address [address] [facility] 7t [place] [address] Care Team Providers Care Shoulder Pad Molder Name Role Phone Natacha Olivas MD Primary Care Provider +- [phone] Rukhsana Penaloza PharmD Unavailable [phone] Ebenezer Earl MD Unavailable [phone] Encounter Details Date Type Department Care Team (Late st Contact Info) Description 03/11/2024 Orders Only [facility] [address] [place] [address] Natacha Olivas MD [address] [place] [address] Social History Tobacco Use Types Packs/Day Years [...] the past 12 months, has t he [employer], gas, oil or water [employer] threatened to shut off services in your [...] Description 06/02/2024 9:45 AM EDT Office Visit [facility] [address] [place] [address] Natacha Olivas MD [address] [place] [address] documented as of this encounter Goals Goal [...] documented as of this encounter Care Teams Shoulder Pad Molder Relationship Specialty Start Date End Date Natacha Olivas MD [address] [place] [address] PCP - General Family Medicine 09/05/13 Rukhsana Penaloza PharmD [address] [place] [address] Pharmacist Internal Medicine 07/13/22 Ebenezer Earl MD [address] [place] [address] Urology 02/18/24 [facility] 08/08/23 Ember Krishnamurthy PA-C [facility] Endocrinology Endocrinology 02/18/24 documented as of this encounter
--- OUTSIDE RECORDS SUMMARY | 2024-04-15 15:06 | XMS_ITS | Encounter Summary ---
Author Organization [employer] Address [address] [facility] 7t [place] [address] Care Team Providers Care In Home Baby Sitter Name Role Phone Natacha Olivas MD Primary Care Provider +- [phone] Rukhsana Penaloza PharmD Unavailable [phone] Ebenezer Earl MD Unavailable [phone] Encounter Details Date Type Department Care Team (Latest Contact Info) Description 03/17/2024 Travel Social History Tobacco Use Types Packs/Day Years [...] Description 06/02/2024 9:45 AM EDT Office Visit [facility] MED[facility]INE [address] [place] [address] Natacha Olivas MD [address] [place] [address] documented as of this encounter Goals Goal [...] documented as of this encounter Care Teams In Home Baby Sitter Relationship Specialty Start Date End Date Natacha Olivas MD [address] [place] [address] PCP - General Family Medicine 09/05/13 Rukhsana Penaloza, HiltonD [address] [place] [address] Pharmacist Internal Medicine 07/13/22 Ebenezer Earl MD [address] [place] [address] Urology 02/18/24 [facility] 08/08/23 Ember Krishnamurthy PA-C [facility] Endocrinology Endocrinology 02/18/24 documented as of this encounter
--- OUTSIDE RECORDS SUMMARY | 2024-04-15 15:07 | XMS_ITS | Encounter Summary ---
Author Organization [facility], Address [address] [place] [address] Phone Care Team Providers Care Senior Payroll Specialist Name Role Phone Natacha Olivas MD Primary Care Provider U bran Encounter Details Date Type Department Care Team (Late st Contact Info) Description 11/27/2022 Orders Only [facility], [address] [place] [address] Ana Browning PA Hypervolemia; Stage 3b chronic kidney disease (HCC); Type 2 diabetes mellitus, not otherwise specified (HCC); Hypertension Social History Tobacco Use Types Packs/Day Years [...] as of this encounter Visit Diagnoses Diagnosis Hypervolemia Stage 3b chronic kidney disease (HCC) Type 2 diabetes mellitus, not otherwise specified (HCC) Hypertension documented in this encounter Care Teams Senior Payroll Specialist Relationship Specialty Start Date End Date aNtacha Olivas MD PCP - General 12/24/18 documented as of this encounter
--- OUTSIDE RECORDS SUMMARY | 2024-04-15 15:07 | XMS_ITS | Encounter Summary ---
Author Organization [employer] Address [address] [facility] 7t [place] [address] Care Team Providers Care Yard Coupler Name Role Phone Natacha Olivas MD Primary Care Provider +- [phone] Rukhsana Penaloza PharmD Unavailable [phone] Ebenezer Earl MD Unavailable [phone] Encounter Details Date Type Department Care Team (Late st Contact Info) Description 02/21/2024 Abstract [facility] [address] [place] [address] Natacha Olivas MD [address] [place] [address] Social History Tobacco Use Types Packs/Day Years [...] the past 12 months, has t he [employer], gas, oil or water company threatened to [...] Description 06/02/2024 9:45 AM EDT Office Visit [facility] [address] [place] [address] Natacha Olivas MD [address] [place] [address] documented as of this encounter Goals Goal [...] documented as of this encounter Care Teams Yard Coupler Relationship Specialty Start Date End Date Natacha Olivas MD [address] [place] [address] PCP - General Family Medicine 09/05/13 Rukhsana Penaloza PharmD [address] [place] [address] Pharmacist Internal Medicine 07/13/22 Ebenezer Earl MD [address] [place] [address] Urology 02/18/24 [facility] 08/08/23 Ember Krishnamurthy PA-C [facility] Endocrinology Endocrinology 02/18/24 documented as of this encounter
--- OUTSIDE RECORDS SUMMARY | 2024-04-15 15:07 | XMS_ITS | Encounter Summary ---
Author Organization [facility], Address [address] [place] [address] Phone Care Team Providers Care Technology Risk Intern Name Role Phone Natacha Olivas MD Primary Care Provider U bran Encounter Details Date Type Department Care Team (Late st Contact Info) Description 11/09/2021 Documentation Only [facility], [address] [place] [phone] Ana Browning PA Social History Tobacco Use [...] on filedocumented in this encounter Care Teams Technology Risk Intern Relationship Specialty Start Date End Date Natacha Olivas MD PCP - General 12/24/18 documented as of this encounter
--- OUTSIDE RECORDS SUMMARY | 2024-04-15 15:07 | XMS_ITS | Clinical Summary ---
Author Organization [facility] Address [address] [place] [address] Care Team Providers Care Mop Maker Name Role Phone Natacha Olivas MD Primary Care Provider [phone] Rukhsana Penaloza PharmD Unavailable [phone] Ebenezer Earl MD Unavailable [phone] Allergies Active Allergy Reactions Criticality Noted Date Comments Sertraline Hives 04/07/2023 Other Reaction(s): HIves on 02/17; possible chronological association with this med initiation. Alternate allergies could nt be completely excluded Medications pantoprazole (ProtoNix) 40 MG EC tablet Take 40 mg by mouth in the morning. 03/15/19 23 Active GlucaGen HypoKit 1 MG injection TO BE INJECTED BY CAREGIVER SUBCUTANEOUSLY IF PT IS UNCONSCIOUS DUE TO LOW BLOOD SUGAR. SEEK MEDICAL CARE. IF PATIENT DOES NOT RESPOND IN 15 MINUTES REPEAT DOSE. 05/23/19 23 Active loratadine (Claritin) 10 MG tabletIndications: Allergic rhinitis, unspecified seasonality, unspecified trigger TAKE 1 TABLET BY MOUTH EVERY OTHER DAY NEEDED FOR ALLERGIES 15 tablet 5 11/10/19 23 Active glucagon (Baqsimi Two Pack) 3 MG/DOSE nasal powderIndications: Type 2 diabetes mellitus with stage 3b chronic kidney disease, unspecified whether termination clerk insulin use ([facility]) Administer 3 mg into affected nostril(s) 1 (one) time if needed for low blood sugar. 2 each 1 03/14/19 24 Active Pentips 32G X 4 MM miscIndications:Ty pe 2 diabetes mellitus with hyperglycemia, unspecified whether termination clerk insulin use ([facility]) USE FIVE TIMES DAILY WITH LEVEMIR AND NOVOLOG 200 each 11 06/20/19 24 Active insulin lispro (HumaLOG) 100 UNIT/ML injectionIndicatio ns:Type 2 diabetes mellitus with stage 3b chronic kidney disease, unspecified whether termination clerk insulin use ([facility]) INJECT 15 UNITS SUBCUTANEOUSLY WITH BREAKFAST, WITH LUNCH AND WITH DINNER 15 mL 2 08/24/19 24 Active sennosides (Senokot) 8.6 MG tabletIndications: Constipation, unspecified constipation type 1-2 tabs po nightly prn constipation 60 tablet 11 11/02/19 24 Active Multiple Vitamin (multivitamin) tabletIndications: Malnutrition, unspecified type ([facility] Take 1 tablet by mouth Once per day. 90 tablet 3 11/02/19 24 Active furosemide (Lasix) 20 MG tabletIndications: Hypertensive heart and renal disease with (congestive) heart failure ([facility]) TAKE 1 TABLET BY MOUTH EVERY OTHER DAY IN THE MORNING 15 tablet 5 12/04/19 24 Active docusate sodium (Colace) 100 MG capsule Take 1 capsule by mouth 2 times daily. For constipation 11/29/19 24 Active glucose blood (OneTouch Verio) test stripIndications:T ype 2 diabetes mellitus with hyperglycemia, unspecified whether senior care insulin use ([facility]) TEST BLOOD SUGAR FOUR TIMES DAILY 100 strip 11 12/18/19 24 Active Lancets (NanoTuneTouch Delica Plus Fihglo12O) miscIndications:Ty pe 2 diabetes mellitus with hyperglycemia, unspecified whether termination clerk insulin use ([facility]) TEST BLOOD SUGAR FOUR TIMES DAILY 100 each 11 12/18/19 24 Active Lantus SoloStar 100 UNIT/ML pen Inject 30 Units under the skin at bedtime. 12/19/19 24 Active amLODIPine (Norvasc) 5 MG tabletIndications: Hypertension, unspecified type TAKE 1 TABLET BY MOUTH EVERY EVENING 90 tablet 3 12/28/19 24 Active mirtazapine (Remeron Laura-Tab) 15 MG disintegrating tabletIndications: Major depressive disorder, remission status unspecified, unspecified whether recurrent TAKE 1 TABLET BY MOUTH AT BEDTIME (DISSOLVE ON TONGUE) 30 tablet 3 01/21/20 24 Active bisacodyl (Dulcolax) 10 MG suppositoryIndicat ions:Constipation, unspecified constipation type Insert 10 mg into the rectum. 01/10/20 24 Active finasteride (Proscar) 5 MG tabletIndications: Benign prostatic hyperplasia with lower urinary tract symptoms, symptom details unspecified Take 5 mg by mouth in the morning. 02/12/20 Active Toujeo SoloStar 300 UNIT/ML injection INJECT 15 UNITS SUBCUTANEOUSLY AT BEDTIME 02/18/20 Active doxazosin (Cardura) 4 MG tabletIndications: Benign prostatic hyperplasia with lower urinary tract symptoms, symptom details unspecified Take 4 mg by mouth at bedtime. Active carvedilol (Coreg) 6.25 MG tablet Take 1 tablet (6.25 mg) by mouth with breakfast and with evening meal. 60 tablet 2 03/04/19 Active gabapentin (Neurontin) 300 MG capsuleIndications :Left foot pain Take 1 capsule (300 mg) by mouth at bedtime. 30 capsule 1 03/04/19 25 Active Active Problems Patient Care Coordination No te Formatting of this note migh t be different from the original. 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 Antiplatelet and atorvastatin held. -Patient is unable to use his left arm and leg -Evaluation TRACK EQUIPMENT OPERATOR services by [facility]. -Casemanager is Anais Morillo [phone] 05/15/23 repots pt given number for transportation - rx for Left AFO for foot drop. Per pt it can go to [facility] in [place] or [facility] in [place] written 05/16/23 -swallow study 06/25/23 No laryngeal penetration or tracheal aspiration was observed during , g tube removed -multiple falls since discharged. Last discontinue from rehab 08/03/23 -referred to PT 01/23/24 Assessment & Plan (01/23/2024 10:29 AM EST): Right thalamic hemorrhagic stroke 02/11/23. Antiplatelet and atorvastatin held. -Patient is unable to use his left arm and leg -Evaluation TRACK EQUIPMENT OPERATOR services by [facility]. -Casemanager is Anasi Morillo [phone] [id number] 05/15/23 repots pt given number for transportation - rx for Left AFO for foot drop. Per pt it can go to [facility] in [place] or [facility] in [place] written 05/16/23 -swallow study 06/25/23 No laryngeal penetration or tracheal aspiration was observed during , g tube removed -multiple falls since discharged. Last discontinue from rehab 08/03/23 -referred to PT 01/23/24 Mixed stress and urge urinary incontinence 01/22 Overview (01/23/2024): Needs diaper prescription 01/23/24 Assessment & Plan (01/23/2024 11:49 AM EST): Needs diaper prescription 01/23/24 Pyelonephritis 12/25/2023 Overview (02/25/2024): CT 02/23/23 1. Persistent left perinephric and periureteral stranding with moderate left hydroureteronephrosis. Collecting system dilation has worsened slightly in comparison to 06/14/2023. No stone in the ureter. Findings raise concern for ureteral stricture or malignancy, Versus upper tract infection. History of subdural hematoma 11/08/2023 Overview (01/23/2024): CT 11/08/23 in ER Small acute subdural hematoma along the right cerebral convexity measuring up to 0.5 cm in maximum thickness.Minimal mass effect on the underlying brain parenchyma. No significant midline shift. Small soft tissue defect along the left frontal scalp likely correlating to known laceration. Small left frontal scalp soft tissue hematoma and scattered foci of gas. Mild right inferior frontal scalp soft tissue swelling. Mild volume loss with underlying chronic microangiopathy and remote infarct in the right thalamus. -Advised to complete CT scan in 3 to 4 weeks prior to neurosurgery appointment (Dr Padilla December 03 at [facility]) to determine if aspirin should be resumed, and follow up with PCP. Repeat CT 12/03/23 showed evolving right subdural hematoma without evidence of an acute process. Assessment & Plan (01/23/2024 10:25 AM EST): CT 11/08/23 in ER Small acute subdural hematoma along the right cerebral convexity measuring up to 0.5 cm in maximum thickness.Minimal mass effect on the underlying brain parenchyma. No significant midline shift. Small soft tissue defect along the left frontal scalp likely correlating to known laceration. Small left frontal scalp soft tissue hematoma and scattered foci of gas. Mild right inferior frontal scalp soft tissue swelling. Mild volume loss with underlying chronic microangiopathy and remote infarct in the right thalamus. -Advised to complete CT scan in 3 to 4 weeks prior to neurosurgery appointment (Dr Padilla December 03 at [facility]) to determine if aspirin should be resumed, and follow up with PCP. Repeat CT 12/03/23 showed evolving right subdural hematoma without evidence of an acute process. AMERICO (acute kidney injury) 09/19/2023 Overview (01/23/2024): [facility] [place]) Patient presented for evaluation of dysuria and vomiting. Patient found to be septic and resuscitated with IV crystalloids. Found to have AMERICO and urine concerning for UTI. Started on IV abx. Patient improved and discharged on cefuroxime for 7 days. AMERICO improved after holding furosemide and PO intake. Patient instructed to hold next dose of furosemide and have repeat BMP outpatient. Discharged home to follow up with PCP. -Hold: furosemide (resume 12/24/23). Has not started Furosamide 01/23/24, will continue to hold since BP is stable. -ordered repeat BMP 01/23/24 Assessment & Plan (01/23/2024 10:35 AM EST): [facility] [place]12/[place]/23-12/23/23) Patient presented for evaluation of dysuria and vomiting. Patient found to be septic and resuscitated with IV crystalloids. Found to have AMERICO and urine concerning for UTI. Started on IV abx. Patient improved and discharged on cefuroxime for 7 days. AMERICO improved after holding furosemide and PO intake. Patient instructed to hold next dose of furosemide and have repeat BMP outpatient. Discharged home to follow up with PCP. -Hold: furosemide (resume 12/24/23). Has not started Furosamide 01/23/24, will continue to hold since BP is stable. -ordered repeat BMP 01/23/24 Assessment & Plan (09/19/2023 5:43 PM EDT): Trend labs, pt reports restarting arb Bp at goal today Left hemiparesis 08/18/2023 Polypharmacy 05/16/2023 Overview (05/16/2023): -Medication list at [facility] still included the following medications that had been discontinued following last hospitalization 03/2023: -atorvastatin dicharge recommends recheck FLP and change to more hydrophilic statin -aspirin held for hemorrhagic stroke -pioglitazone, Tradjenta discharged in hospital will defer to endocrinology -losartan held for AMERICO and not restarted to to low to normal Bps -insulin dose clarified Assessment & Plan (05/28/2023 12:11 PM EDT): -Medication list at [facility] still included the following medications that had been discontinued following last hospitalization 03/2023: -atorvastatin dicharge recommends recheck FLP and change to more hydrophilic statin -aspirin held for hemorrhagic stroke -pioglitazone, Tradjenta discharged in hospital will defer to endocrinology -losartan held for AMERICO and not restarted to to low to normal Bps -insulin dose clarified Assessment & Plan (05/16/2023 12:01 PM EDT): -Medication list at [facility] still included the following medications that had been discontinued following last hospitalization 03/2023: -atorvastatin dicharge recommends recheck FLP and change to more hydrophilic statin -aspirin held for hemorrhagic stroke -pioglitazone, Tradjenta discharged in hospital will defer to endocrinology -losartan held for AMERICO and not restarted to to low to normal Bps -insulin dose clarified Major depressive disorder 04/10/2023 Overview (05/16/2023): Stable. No suicidial or homacidial ideation. Declines referral at this time. Assessment & Plan (05/28/2023 12:11 PM EDT): Stable. No suicidial or homacidial ideation. Declines referral at this time. Assessment & Plan (05/16/2023 1:21 PM EDT): Stable. No suicidial or homacidial ideation. Declines referral at this time. Hemorrhagic cerebrovascular accident (CVA) 04/07 Overview (01/23/2024): Right thalamic hemorrhagic stroke 02/11/23. Antiplatelet and atorvastatin held. -Patient is unable to use his left arm and leg -Evaluation TRACK EQUIPMENT OPERATOR services by [facility]. -Casemanager is Anais Abdifatah Morillo [phone] 05/15/23 repots pt given number for transportation - rx for Left AFO for foot drop. Per pt it can go to [facility] in [place] or [facility] in [place] written 05/16/23 -swallow study 06/25/23 No laryngeal penetration or tracheal aspiration was observed during , g tube removed -multiple falls since discharged. Last discontinue from rehab 08/03/23 -referred to PT 01/23/24 Assessment & Plan (01/23/2024 10:24 AM EST): Right thalamic hemorrhagic stroke 02/11/23. Antiplatelet and atorvastatin held. -Patient is unable to use his left arm and leg -Evaluation TRACK EQUIPMENT OPERATOR services by [facility]. -Casemanager is Anais Abdifatah Morillo [phone] 05/15/23 repots pt given number for transportation - rx for Left AFO for foot drop. Per pt it can go to [facility] in [place] or [facility] in [place] written 05/16/23 -swallow study 06/25/23 No laryngeal penetration or tracheal aspiration was observed during , g tube removed -multiple falls since discharged. Last discontinue from rehab 08/03/23 -referred to PT 01/23/24 Assessment & Plan (11/02/2023 1:37 PM EDT): Right thalamic hemorrhagic stroke 02/11/23. Antiplatelet and atorvastatin held. -Patient is unable to use his left arm and leg -Evaluation TRACK EQUIPMENT OPERATOR services by [facility]. -Casemanager is Anais Morillo [phone] 05/15/23 repots pt given number for transportation - rx for Left AFO for foot drop. Per pt it can go to [facility] in [place] or [facility] in [place] written 05/16/23 -swallow study 06/25/23 No laryngeal penetration or tracheal aspiration was observed during , g tube removed -multiple falls since discharged. Last discontinue from rehab 08/03/23 Assessment & Plan (05/28/2023 12:08 PM EDT): Right thalamic hemorrhagic stroke 02/12/24. Antiplatelet and atorvastatin held. -repeat lipid panel and consider switching to more hydrophilic statin. -Patient is unable to use his left arm and leg -much of the visit was spent trying to coordinate care. Evaluation 05/17/23 for TRACK EQUIPMENT OPERATOR services by [facility]. -Alisha Manzo Abdifatah Morillo [phone] 05/15/23 repots pt given number for transportation -Care management at [facility] helped pt with transportation 05/16/23 - rx for Left AFO for foot drop. Per pt it can go to [facility] in [place] or [facility] in [place] written 05/16/23 -ADAMARIS Kenny RNCM will see pt at home 05/17/23 - Number for [facility] [phone] 05/28/23 Assessment & Plan (05/16/2023 1:17 PM EDT): Right thalamic hemorrhagic stroke 02/12/24. Antiplatelet and atorvastatin held. -repeat lipid panel and consider switching to more hydrophilic statin. -Patient is unable to use his left arm and leg -much of the visit was spent trying to coordinate care. Evaluation 05/17/23 for TRACK EQUIPMENT OPERATOR services by [facility]. -Alisha miller Anais Abdifatah Morillo [phone] 05/15/23 repots pt given number for transportation -Care management at [facility] helped pt with transportation 05/16/23 - rx for Left AFO for foot drop. 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 Vascular calcifications are noted. There are prominent spurs off the posterior and inferior calcaneus. There is advanced degenerative change at the first MTP. No acute fracture. Assessment & Plan (05/16/2023 12:17 PM EDT): Pt states he ambulates with a cane, he does not have a cane with him today. Will refer to PT. Assessment & Plan (11/15/2022 10:45 AM EDT): Pt states he abulates with a cane, he does not havea acane with him today. Will refer to PT. Preventative health care 07/04/2022 Overview (05/16/2023): -Next physical due after April 19, 2024 -followed by Dr. Rashad Moon of [facility] , last eye exam 10/17/22 -health care proxy paperwork done 05/16/23 Assessment & Plan (05/16/2023 1:22 PM EDT): -Next physical due after April 19, 2024 -followed by Dr. 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 Overview (11/08/2022): Followed by GI, last seen 07/2020 recommending repeat EGD 203 years Continue PPI Assessment & Plan (05/28/2023 12:09 PM EDT): Followed by GI, last seen 07/2020 recommending repeat EGD 203 years Continue PPI Assessment & Plan (05/16/2023 12:16 PM EDT): Followed by GI, last seen 07/2020 recommending repeat EGD 203 years Continue PPI Assessment & Plan (04/19/2022 10:51 AM EST): Followed by GI, last seen 07/2020 recommending repeat EGD 203 years Continue PPI History of non-ST elevation myocardial infarctio n (NSTEMI) 03/23/2022 Tubular adenoma 03/05/2022 Overview (03/05/2022): -on colonoscopy with Dr. Sands 01/06/2021 Assessment & Plan (05/28/2023 12:12 PM EDT): -on colonoscopy with Dr. Sands 01/06/2021 Assessment & Plan (05/16/2023 12:01 PM EDT): -on colonoscopy with Dr. Sands 01/06/2021 Hypertensive heart and renal disease with (congestive) heart failure 02/26/2019 Diverticular disease 08/16/2012 Bilateral cataracts 08/07/2012 Hyperlipidemia 10/02/2011 Overview (05/16/2023): Lab Results Component Value Date TRIG 292 (H) 05/16/2023 TRIG 196 08/31/2022 CHOL 171 05/16/2023 CHOL 114 08/31/2022 LDLCHOLCAL 78 05/16/2023 LDLCHOLCAL 39 08/31/2022 HDL 35 (L) 05/16/2023 HDL 36 08/31/2022 -continue lifestyle modifications -Statin therapy: held during stroke, 01/2023 recommending recheck FLP and change to more hydrophilic statin Assessment & Plan (05/28/2023 12:11 PM EDT): Lab Results Component Value Date TRIG 292 (H) 05/16/2023 TRIG 196 08/31/2022 CHOL 171 05/16/2023 CHOL 114 08/31/2022 LDLCHOLCAL 78 05/16/2023 LDLCHOLCAL 39 08/31/2022 HDL 35 (L) 05/16/2023 HDL 36 08/31/2022 -continue lifestyle modifications -Statin therapy: held during stroke, 01/2023 recommending recheck FLP and change to more hydrophilic statin Assessment & Plan (05/16/2023 1:20 PM EDT): Lab Results Component Value Date TRIG 292 (H) 05/16/2023 TRIG 196 08/31/2022 CHOL 171 05/16/2023 CHOL 114 08/31/2022 LDLCHOLCAL 78 05/16/2023 LDLCHOLCAL 39 08/31/2022 HDL 35 (L) 05/16/2023 HDL 36 08/31/2022 -continue lifestyle modifications -Statin therapy: held during stroke, 01/2023 recommending recheck FLP and change to more hydrophilic statin Benign prostatic hyperplasia 08/24/2011 Overview (02/21/2024): -Seen by Dr. Ebenezer Earl 02/09/24, continue current medicaions CKD stage 3 secondary to diabetes 08/24/2011 Overview (01/23/2024): - Worsening condition of kidneys over the years. - Discussed importance of compliance with medication and encouraged a healthy diet. -Current CrCl is 36.4ml/min--medications are appropriate currently - Referred back to nephrology for medication adjustment for creatinine clearance improvement. - Improve BS and BP control. - Avoid nephrotoxic agents. -Losartan held during hospitalization 01/2023, advised to follow up with nephrology, Dr. Guerrier [facility] [place]12/[place]-12/23/23). Pt was septic and found to have AMERICO and urine concerning for UTI. Started on IV abx. Patient improved and discharged on cefuroxime for 7 days. AMERICO improved after holding furosemide and PO intake. Patient instructed to hold next dose of furosemide and have repeat BMP outpatient. -ordered repeat BMP 01/23/24 Assessment & Plan (01/23/2024 10:27 AM EST): - Worsening condition of kidneys over the years. - Discussed importance of compliance with medication and encouraged a healthy diet. -Current CrCl is 36.4ml/min--medications are appropriate currently - Referred back to nephrology for medication adjustment for creatinine clearance improvement. - Improve BS and BP control. - Avoid nephrotoxic agents. -Losartan held during hospitalization 01/2023, advised to follow up with nephrology, Dr. Guerrier [facility] (12/19/23-12/23/23). Pt was septic and found to have AMERICO and urine concerning for UTI. Started on IV abx. Patient improved and discharged on cefuroxime for 7 days. AMERICO improved after holding furosemide and PO intake. Patient instructed to hold next dose of furosemide and have repeat BMP outpatient. -ordered repeat BMP 01/23/24 Assessment & Plan (11/02/2023 1:37 PM EDT): - Worsening condition of kidneys over the years. - Discussed importance of compliance with medication and encouraged a healthy diet. -Current CrCl is 36.4ml/min--medications are appropriate currently - Referred back to nephrology for medication adjustment for creatinine clearance improvement. - Improve BS and BP control. - Avoid nephrotoxic agents. -Losartan held during hospitalization 01/2023, advised to follow up with nephrology, Dr. Guerrier Assessment & Plan (05/28/2023 12:10 PM EDT): - Worsening condition of kidneys over the years. - Discussed importance of compliance with medication and encouraged a healthy diet. -Current CrCl is 36.4ml/min--medications are appropriate currently - Referred back to nephrology for medication adjustment for creatinine clearance improvement. - Improve BS and BP control. - Avoid nephrotoxic agents. -Appointment with nephrololgy 11/27/2022 -Losartan held during hospitalization 01/2023, advised to follow up with neruology Assessment & Plan (05/16/2023 1:19 PM EDT): - Worsening condition of kidneys over the years. - Discussed importance of compliance with medication and encouraged a healthy diet. -Current CrCl is 36.4ml/min--medications are appropriate currently - Referred back to nephrology for medication adjustment for creatinine clearance improvement. - Improve BS and BP control. - Avoid nephrotoxic agents. -Appointment with nephrololgy 11/27/2022 -Losartan held during hospitalization 01/2023, advised to follow up with neruology Assessment & Plan (11/15/2022 10:31 AM EDT): - Worsening condition of kidneys over the years. - Discussed importance of compliance with medication and encouraged a healthy diet. -Current CrCl is 36.4ml/min--medications are appropriate currently - Referred back to nephrology for medication adjustment for creatinine clearance improvement. - Improve BS and BP control. - Avoid nephrotoxic agents. - Continue Losartan 50mg daily -Appointment with nephrololgy 11/27/2022. Assessment & Plan (04/19/2022 11:02 AM EST): - Worsening condition of kidneys over the years. - Discussed importance of compliance with medication and encouraged a healthy diet. -Current CrCl is 36.4ml/min--medications are appropriate currently - Referred back to nephrology for medication adjustment for creatinine clearance improvement. - Improve BS and BP control. - Avoid nephrotoxic agents. - Continue Losartan 50mg daily - lasiks was stopped due to creatines 2.48. - He is folled by nephrology with Dr. Fery last seen 04/06/2022, will follow up in 6 months. Assessment & Plan (04/06/2022 2:11 PM EST): Creatine increase from 2.1 to 2.38. Likely due to furosemide. Discontinue daily furosemide.. Will recheck in a month. Type 2 diabetes mellitus 08/24/2011 Overview (02/21/2024): -Followed by endocrinology last seen 02/19/24. Multiple medications changed during hospitalizations for stroke 01/2023 Lab Results Component Value Date HGBA1C 8.2 (H) 12/27/2023 HGBA1C 6.3 (H) 05/16/2023 HGBA1C 7.3 (A) 11/15/2022 Lab Results Component Value Date MICROALBUR 494.0 05/16/2023 CREATININE 2.20 (H) 12/27/2023 -[place]/Arb: losartan held during hospitalization due to AMERICO and not restarted due to BP at goal -Statin therapy: held during stroke, recommending recheck FLP and change to more hydrophilic statin -Diabetic eye exam followed by Dr. Rashad Moon of [facility] , last 10/17/22 -Foot exam: done 01/23/24 -Continue lifestyle modifications -01/15/24 per CDTM Insulin lispro listed to be continued as sliding scale < Less than or equal to 110, 0 units; 111 to 150, 0 units; 151 to 200, 2 units;201 to 250, 4 units; 251 to 300, 6 units; 301 to 350, 8 units; Greater than 350,10 units. Call MD if Blood Glucose > : 350 -increase Toujeo to 15 units 02/19/24 -start on Humalog 4 units with meals and 2 units for snacks 02/19/24. His snack often consists of something sweet and sometimes juice. He does not want to cut this out yet. He will continue with the Jardiance. He will return for follow up in 2 weeks with enco Assessment & Plan (01/23/2024 10:25 AM EST): -Followed by endocrinology last seen 09/19/2022. Multiple medications changed during hospitalizations for stroke 01/2023 Lab Results Component Value Date HGBA1C 8.2 (H) 12/27/2023 HGBA1C 6.3 (H) 05/16/2023 HGBA1C 7.3 (A) 11/15/2022 Lab Results Component Value Date MICROALBUR 494.0 05/16/2023 CREATININE 2.20 (H) 12/27/2023 -[place]/Arb: losartan held during hospitalization due to AMERICO and not restarted due to BP at goal -Statin therapy: held during stroke, recommending recheck FLP and change to more hydrophilic statin -Diabetic eye exam followed by Dr. Rashad Moon of [facility] , last 10/17/22 -Foot exam: done 01/23/24 -Continue lifestyle modifications -Continue current medications -Clarification of insulin: -Medication list at [facility] still included the following medications that had been discontinued following last hospitalization 03/2023: atorvastatin, aspirin, pioglitazone, Tradjenta, losartan. -40 units of long active insulin in the mornings and 15 units before meals -01/15/24 per CDTM Insulin lispro listed to be continued as sliding scale < Less than or equal to 110, 0 units; 111 to 150, 0 units; 151 to 200, 2 units;201 to 250, 4 units; 251 to 300, 6 units; 301 to 350, 8 units; Greater than 350,10 units. Call MD if Blood Glucose > : 350 Assessment & Plan (05/28/2023 12:10 PM EDT): -Followed by endocrinology last seen 09/19/2022. Multiple medications changed during hospitalizations for stroke 01/2023 Lab Results Component Value Date HGBA1C 6.3 (H) 05/16/2023 HGBA1C 7.3 (A) 11/15/2022 HGBA1C 6.8 08/31/2022 Lab Results Component Value Date MICROALBUR 494.0 05/16/2023 CREATININE 1.85 (H) 05/16/2023 -[place]/Arb: losartan held during hospitalization due to AMERICO and not restarted due to BP at goal -Statin therapy: held during stroke, recommending recheck FLP and change to more hydrophilic statin -Diabetic eye exam followed by Dr. Rashad Moon of [facility] , last 10/17/22 -Continue lifestyle modifications -Continue current medications -Clarification of insulin: -Medication list at [facility] still included the following medications that had been discontinued following last hospitalization 03/2023: atorvastatin, aspirin, pioglitazone, Tradjenta, losartan. -40 units of long active insulin in the mornings and 15 units before meals Assessment & Plan (05/16/2023 1:19 PM EDT): -Followed by endocrinology last seen 09/19/2022. Multiple medications changed during hospitalizations for stroke 01/2023 Lab Results Component Value Date HGBA1C 6.3 (H) 05/16/2023 HGBA1C 7.3 (A) 11/15/2022 HGBA1C 6.8 08/31/2022 Lab Results Component Value Date MICROALBUR 48.9 09/07/2020 CREATININE 2.60 (H) 11/15/2022 -[place]b: losartan held during hospitalization due to AMERICO and not restarted due to BP at goal -Statin therapy: held during stroke, recommending recheck FLP and change to more hydrophilic statin -Diabetic eye exam followed by Dr. Rashad Moon of [facility] , last 10/17/22 -Continue lifestyle modifications -Continue current medications -Clarification of insulin: -Medication list at [facility] still included the following medications that had been discontinued following last hospitalization 03/2023: atorvastatin, aspirin, pioglitazone, Tradjenta, losartan. -40 units of long active insulin in the mornings and 15 units before meals Assessment & Plan (11/15/2022 10:32 AM EDT): Diabetes is controlled. -Followed by endocrinology last seen 09/19/2022. Lab Results Component Value Date HGBA1C 7.3 (A) 11/15/2022 HGBA1C 6.8 08/31/2022 HGBA1C 7.6 (A) 04/19/2022 -No results found for: POCA1C - Lab Results Component Value Date MICROALBUR 48.9 09/07/2020 CREATININE 2.15 (H) 08/31/2022 -[place]/Arb: -Statin therapy: -Diabetic eye exam followed by Dr. Rashad Moon of [facility] , last 10/17/22 -Diabetic foot exam: -Continue lifestyle modifications -Continue current medications Hypertension 08/24/2011 Overview (05/16/2023): -Blood pressure is at goal -Continue lifestyle modifications -Continue current medications Assessment & Plan (01/23/2024 10:24 AM EST): -Blood pressure is at goal -Continue lifestyle modifications -Continue current medications Assessment & Plan (11/02/2023 1:37 PM EDT): -Blood pressure is at goal -Continue lifestyle modifications -Continue current medications Assessment & Plan (05/28/2023 12:09 PM EDT): -Blood pressure is at goal -Continue lifestyle modifications -Continue current medications Assessment & Plan (05/16/2023 1:21 PM EDT): -Blood pressure is at goal -Continue lifestyle modifications -Continue current medications Assessment & Plan (04/19/2022 10:59 AM EST): Not controlled but Pt did not take medication today. Continue with CDTM. Resolved Problems Problem Noted Date Diagnosed Date Resolved Date Nausea vomiting and diarrhea 12/25/2023 03/11/2024 Hydronephrosis 12/25/2023 03/11/2024 Forehead laceration 12/25/2023 01/23/20 Acute UTI 12/25/2023 03/11/2024 Bilateral arm pain 12/25/2023 Acute subdural hematoma 12/25/202302/20 Adult failure to thrive 11/08/202310/21 Constipation 11/02/2023 01/23/2024 Rash 11/02/2023 11/14/2023 Ingrown toenail of left foot 08/22/2023 11/14/2023 Paronychia of great toe of left foot 08/22/2023 11/14/2023 Acute renal failure superimp osed on chronic kidney disease 08/18/2023 11/14/2023 Candiduria 08/18/2023 11/14/2023 COVID-19 08/18/2023 11/14/2023 Generalized weakness 08/18/2023 024 Hypertensive heart disease 08/18/2023 0 11/14/2023 Malnutrition 08/18/2023 03/11/2024 Cerebrovascular accident (CVA) 05/28/2023 03/11/2024 Gastrointestinal tube present 05/28/2023 01/23/2024 Chronic renal disease, stage IV 05/16/2023 03/11/2024 Urinary retention 04/07/2023 05/16/2023 Assessment & Plan (04/13/2023 6:12 PM EST): Patient already has an urology appointment Skin tag 04/06/2022 11/15/2022 Assessment & Plan (04/06/2022 1:26 PM EST): Left eyelid. Causing irritating. Will refer to optho surgery. Swelling of lower extremity 04/06/2022 11/15/2022 Overview (08/15/2022): avoid salt, elevate legs. venous Doppler US of left LE ordered. referred to cardiology. Assessment & Plan (08/15/2022 12:34 PM EDT): ?? Last seen by Cards in Dec 2021 - [facility]: Dr. Jeffrey. Per consult note, Echo showed moderate LVH c/w hypertensive heart disease, but no signs/symptoms of CHF ?? Outgoing TC placed to [facility] with pt and left message on RN line for return call for follow up medication regarding ?BLE 2/2 cardiac origin. Requested they return call directly to patient ?? Given hx of AMERICO and Cr elevation with diuretics, med not initiated today. ?? Venous doppler ordered BLE ?? Encouraged to discuss with Latasha & Dr. Morgan at upcoming nephrology appt ?? Encouraged to continue with symptomatic management including low salt diet and elevation of legs ?? ED/urgent care precautions reviewed Assessment & Plan (04/19/2022 10:49 AM EST): avoid salt, elevate legs. venous Doppler US of left LE ordered. referred to cardiology. Assessment & Plan (04/06/2022 2:10 PM EST): Improved. Recomend compresssion stockings. Low sodium diet Use lasiks PRN CAD, multiple vessel 03/23/2022 024 Swelling 03/23/2022 11/15/2022 Overview (03/23/2022): No evidence of respitory distress. Check labs. Start Lasiks 20mg daily. F/u with PCP after labs. Assessment & Plan (03/23/2022 1:40 PM EST): No evidence of respitory distress. Check labs. Start Lasiks 20mg daily. BP elevated. Chlorthalidone was discontinued due to AMERICO in the hospital. F/u with PCP after labs. Age-related cataract 11/06/2017 025 Assessment & Plan (04/19/2022 10:59 AM EST): Eye referral done 04/19/2022. Carpal tunnel syndrome 10/02/201101/22 Erectile dysfunction 10/02/2011 024 Gastroesophageal reflux disease 10/02/2011 01/23/2024 Encounters Date Type Department Care Team Description 04/11/2024 Telephone [facility] [place] [id number] Natacha Olivas MD Verbal order 03/17/2024 Telephone [facility] [place] [address] Radha Brewer MA Recalls May (I book the appt on 06/02/24 for Physical.) 03/17/2024 Travel 03/11/2024 Orders Only [facility] [place] [address] Natacha Olivas MD 03/04/2024 Refill [facility] [place] [address] Natacha Olivas MD Left foot pain 02/24/2024 Orders Only GENERIC EXTERNAL DATA DEPARTMENT Provider, Generic External Data Pyelonephritis (Primary Dx) 02/21/2024 Abstract [facility] [place] [address] Natacha Olivas MD 02/21/2024 Orders Only [facility] [place] [address] Natacha Olivas MD Constipation, unspecified constipation type (Primary Dx); Benign prostatic hyperplasia with lower urinary tract symptoms, symptom details unspecified 02/18/2024 Orders Only GENERIC EXTERNAL DATA DEPARTMENT Provider, Generic External Data 02/05/2024 Telephone [facility] [place] [address] Natacha Olivas MD Verbal order 02/04/2024 Orders Only [facility] [place] [address] Natacha Olivas MD Impaired mobility and activities of daily living (Primary Dx); 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, unspecified cerebrovascular disease type ([facility]) 01/31/[address] [address] Natacha Olivas MD Referral 01/30/[address] [address] Natacha Olivas MD Medication Question; Request For Order(s) 01/23/2024 9:00 AM EST Office Visit [address] [address] Natacha Olivas MD Encounter for examination following treatment at hospital (Primary Dx); Hemorrhagic cerebrovascular accident (CVA) ([facility]); Immobility syndrome (paraplegic); AMERICO (acute kidney injury) ([facility]); CKD stage 3 secondary to diabetes ([facility]); Primary hypertension; Type 2 diabetes mellitus with stage 3b chronic kidney disease, unspecified whether termination clerk insulin use ([facility]); History of subdural hematoma; Encounter for immunization; Acute subdural hematoma ([facility]); Mixed stress and urge urinary incontinence 01/23/[address] [address] Cherelle Olguin MA Durable Medical Equipment 01/23/[address] [address] Natacha Olivas MD 01/23/2024 Travel 01/18/[address] [address] Natacha Olivas MD Major depressive disorder, remission status unspecified, unspecified whether recurrent from Last 3 Months Immunizations Name Administration Dates Next Due Hep B, adult 06/11/2012,10/17/2010,09/19/2010 INFLUENZA VACCINE QUADRIVALE NT RECOMBINANT PRESERVATIVE FREE RIV4 11/24/2019 Influenza High-dose Quadriva lent Preservative Free 12/07/2021 Influenza Injectable Quadriv alant Preservative Free IIV4 MDCK 01/21/2021 Influenza injectable quadriv alent IIV4 with preservative 11/17/2016 Influenza injectable quadriv alent preservative free 11/15/2022,02/24/2015 Influenza, High Dose Seasona l, Preservative Free 11/13/2023,01/09/2019,11/21/2017,11/01 Influenza, IIV3, injectable 11/13/2023,0 11/15/2022,12/07/2021,01/21,11/24/2019,01/09/2019,11/21/2017 ,11/17/2016,11/02/2015,02/24/2015,10/21,11/20/2013 Influenza, Split (incl. rowan fied surface antigen) 11/05/2012,11/02/2011 Influenza, seasonal, injecta ble, preservative free 12/19/2023,11/14/2014 Moderna Covid-19 Vaccine 12+ 05/06/2020,04/08/19 21 Pfizer Covid-19 Vaccine 12+ 01/23/2024, Pfizer Covid-19 Vaccine 12+ Bivalent 07/14/2021 Pfizer Covid-19 Vaccine 12+ lorne-sucrose (Reed Cap) 07/14/2021 Pneumococcal Conjugate PCV 13 12/27/2014, 015 Pneumococcal Polysaccharide PPSV23 11/17/2016,,11/28/2000 TD (adult), 2 Lf tetanus tox oid, preservative free, adsorbed 03/21/2002 Td (adult), unspecified 03/21/2002 Tdap 11/15/2022,06/11/2012 Zoster, Recombinant 05/12/2021,01/21/2021 Zoster, live 12/27/2014,12/26/2014 Social History Tobacco Use Types Packs/Day Years Used Date Smoking Tobacco: Never Passive Smoke Exposure: Never Smokeless Tobacco: Never Tobacco Cessation:Counseling Given: Not Answered Alcohol Use Standard Drinks/Week Comments Never 0 [...] Orientation Straight 12/19/2021 10 :16 AM EDT Last Filed Vital Signs Vital Sign Reading Time Taken Comments Blood Pressure 127/67 01/23/2024 9:50 AM EST Pulse 72 01/23/2024 9:50 AM EST Temperature 36.1 ??C (96.9 ??F) 01/23/2024 9:50 AM ES T Respiratory Rate 18 01/23/2024 9:50 AM EST Oxygen Saturation 95% 01/23/2024 9:50 AM EST Inhaled Oxygen Concentration - - Weight 57.2 kg (126 lb) 01/23/2024 9:50 AM EST Height 165.1 cm (5' 5 ) 01/23/2024 9:50 AM EST Body Mass Index 20.97 01/23/2024 9:50 AM EST Plan of Treatment Upcoming Encounters Date Type Department Care Team (Late st Contact Info) Description 06/02/2024 9:45 AM EDT Office Visit [facility] [address] [place] [address] Natacha Olivas MD [address] [place] [address] Health Maintenance Due Date Last Done Comments Dental Oral Exam 09/10/2019 03/11/2019, 03/02/2008 RSV Patients and Patients Aged 60 years or older (1 - 1-dose 75+ series) 2021 Dental X-Ray: Bitewings 03/11/2022 03/10/2021, 03/11 Dental X-Ray: Full Mouth 03/12/2022 03/11/2019 Dental Prophylaxis 05/19/2022 11/18/2021, 0 03/10/2021, 03/11/2019 Diabetes: Foot Exam 04/20/2023 04/19/2022, 04/19/2022, 04/19/2022 Diabetes: Hemoglobin A1C 04/22/2024 024, 12/27/2023, 05/16/2023, Additional history exists Depression Screening 05/15/2024 05/16/2023, 05/16/19 SDOH Screening 05/15/2024 05/16/2023 Alcohol/Substance Use Screening 08/21/2024 08/22/2023 Eye Exam 10/17/2024 10/17/2022 Lipid Panel 01/22/2025 01/23/2024, 04/20, 08/31/2022, Additional history exists Tobacco Screening 03/11/2025 03/11/2024 DTaP/Tdap/Td Vaccines (3 - Td or Tdap) 11/15/2032 11/15/2022, 06/11/2012, 03/21/2002, Additional history exists Hepatitis B Vaccines Completed 06/11/2012, 10/17/2010, 09/19/2010 Pneumococcal Vaccine: 50+ Years Completed 11/17/2016, 12/27/2014, 12/26/2014, Additional history exists Colonoscopy Discontinued 01/06/2021 Colorectal Cancer Screening Discontinued Zoster Vaccines Completed 05/12/2021, 04/2020, 12/27/2014, Additional history exists Hepatitis C Screening Completed 11/15/2022 Influenza Vaccine Completed 12/19/2023, , 11/13/2023, Additional history exists COVID-19 Vaccine Completed 01/23/2024, , 07/14/2021, Additional history exists CT Colonography Discontinued FIT DNA/Cologuard Discontinued FIT Discontinued FOBT Discontinued HIB Vaccines Aged Out No longer eligi [...] patient's age to complete this topic Meningococcal Vaccine Aged Out No jami elle eligible based on patient's age to complete this topic RSV under 20 months Aged Out No longe r eligible based on patient's age to complete this topic Rotavirus Vaccines Aged Out No longer eligible based on patient's age to complete this topic Sigmoidoscopy Discontinued Goals Goal Patient Goal Type Associated Problems Recent Progress Patient-Stated? Author Blood Pressure < 140/90 Blood Pressure 127/67( 024 9:50 AM EST) No Rukhsana Allen PharmD Procedures Procedure Name Priority Date/Time Associated Diagnosis Comments XR CHEST 1 VIEW Routine 02/25/2024 11:50 AM EST URINALYSIS, COMPLETE, WITH REFLEX TO CULTURE Routine 02/24/2024 8:[address] ABDOMEN PELVIS WO CONTRAST Routine 02/24/2024 7:59 PM EST LACTIC ACID Routine 02/24/2024 6:36 PM EST COMPREHENSIVE METABOLIC PANEL Routine 02/24/2024 3:16 PM EST CBC WITH AUTO DIFFERENTIAL Routine 02/24/2024 3:16 PM EST GLUCOSE, WHOLE BLOOD Routine 02/18/2024 11:47 AM EST BASIC METABOLIC PANEL Routine 01/23/2024 11:00 AM EST Type 2 diabetes mellitus with stage 3b chronic kidney disease, unspecified whether senior care insulin use (CMS/HCC) HEMOGLOBIN A1C Routine 01/23/2024 11:00 AM EST Type 2 diabetes mellitus with stage 3b chronic kidney disease, unspecified whether termination clerk insulin use (CMS/HCC) LIPID PANEL, STANDARD Routine 01/23/2024 11:00 AM EST Type 2 diabetes mellitus with stage 3b chronic kidney disease, unspecified whether senior care insulin use (CMS/HCC) HEPATIC FUNCTION PANEL Routine 11:00 AM EST Type 2 diabetes mellitus with stage 3b chronic kidney disease, unspecified whether termination clerk insulin use (CMS/HCC) HEPATITIS C ANTIBODY Routine 11/15/2022 10:56 AM EDT Encounter for hepatitis C screening test for low risk patient HM DIABETES EYE EXAM Routine 10/17/2022 PROPHYLAXIS - ADULT Routine 11/18/2021 1 2:00 AM EDT BITEWINGS - 4 RADIOGRAPHIC IMAGES Routine 03/10/2021 12:00 AM EST HM COLONOSCOPY Routine 01/06/2021 INTRAORAL - COMPLETE SERIES OF RADIOGRAPHIC IMAGES Routine 03/11/2019 12:00 AM EST COMPREHENSIVE ORAL EVALUATION - NEW OR ESTABLISHED PATIENT Routine 03/11/2019 12:00 AM EST from Last 3 Months or Most Recently Relevant to Health Maintenance Results * XR Chest 1 View (02/25/2024 11:50 AM EST) Anatomical Region Laterality Modality Chest Radiographic Maida ging 02/25/2024 11:5 0 AM EST Narrative 02/25/2024 12:42 PM EST ? [facility] ?[address] ?[place] [address] ?XRay Report ? Signed ? Patient: Jaramillo,Hector ?MR#: [id number] ?? 5 ? : 1945 ?Acct:[id number] ? Age/Sex: 78 / M ?ADM Date: 01/05/25 ? Loc: HO.S3 ?344-1 ? Attending Dr: Rashad Reid DO ? Ordering Physician: Rashad Reid DO ?? Date of Service: 02/25/24 ?? Procedure(s): XR chest 1V ?? Accession Number(s): [id number] ? cc: Natacha Olivas MD; Rashad Reid DO ? EXAMINATION: ??XR CHEST 1 VIEW ? HISTORY: Hypoxia ? COMPARISON: Comparison is made with the prior examination dated ?? 12/19/2023. ? FINDINGS: ??A single AP portable view of the chest performed at 11:46 AM ?? is submitted. The lungs are expanded and clear. ??There is no pleural ?? effusion, pneumothorax, or pulmonary vascular congestion. ??The heart is ?? normal in size. ??There is degenerative disc disease of the spine. ? XR/XR chest 1V ?? IMPRESSION: ?? No acute cardiopulmonary abnormality. ? Electronically signed by: ??Merlin Fuentes MD ??02/25/2024 12:39 PM EST ?? RP ? Dictated By: ?Merlin Fuentes MD ? Signed By: ?<Electronically signed by Merlin Fuentes MD in OV> ?02/25/24 1239 ? DD/ 1150 ? TD/TT: 02/25/24 1156 ? Software Development Analyst: ? Procedure Note Freda, Image - 02/25/[address] [address] XRay Report Signed Patient: Hector JaramilloMR#: [id number] 5 : 7Acct:[id number] Age/Sex: 78 / MADM Date: 02/24/24 Loc: .S3 344-[address]: Rashad Reid DO Ordering Physician: Rashad Reid DO Date of Service: 02/25/24 Procedure(s): XR chest 1V Accession Number(s): [id number] cc: Natacha Olivas MD; Rashad Reid DO EXAMINATION: XR CHEST 1 VIEW HISTORY: Hypoxia COMPARISON: Comparison is made with the prior examination dated 12/19/2023. FINDINGS: A single AP portable view of the chest performed at 11:46 AM is submitted. The lungs are expanded and clear. There is no pleural effusion, pneumothorax, or pulmonary vascular congestion. The heart is normal in size. There is degenerative disc disease of the spine. XR/XR chest 1V IMPRESSION: No acute cardiopulmonary abnormality. Electronically signed by: Merlin Fuentes MD 02/25/2024 12:39 PM EST RP Dictated By: Merlin Fuentes MD Signed By: <Electronically signed by Merlin Fuentes MD in OV> 02/25/24 1239 DD/ 1150 TD/TT: 02/25/24 1156 Software Development Analyst: [facility] External Provider IMG XR PROCEDURES Edited Result - Final * (ABNORMAL) Urinalysis, Complete, with Reflex to Culture (02/24/2024 8:58 PM EST) Color Urine Yellow [facility] Appearance Urine Hazy [facility] PH 5.5 5.0 - 9.0 [facility] Glucose Urine UA >=1000(A) Negative mg/dL [facility] Urine Blood Small (1+)(A) Negative [facility] Specific [place]ver - Urine 1.015 1.005 - 1.025 [facility] Urine Protein 30 (1+)(A) Neg-Trace mg/dL [facility] Urine Ketones Negative Negative mg/dL [facility] Nitrite Urine Negative Negative [facility] Leukocyte Esterase Urine Small (1+)(A) Negative [facility] RBC Urine 6-10(A) 0 - 2 /HPF [facility] Urine WBC >50(A) 0 - 5 /HPF [facility] Urine Squamous Epithelial Cell 0-2 0 - 2 /HPF [facility] Urine Bacteria None Seen None Seen [facility] Hyaline Casts, Urine 0-2 0 - 2 /LPF [facility] Urine Yeast Present [facility] 02/24/2024 8:58 PM EST 02/24/2024 9:02 PM EST Narrative [facility] - 02/24/2024 9:33 PM EST [id number], [employer] us Generic External Data Provider LAB URINE ORDERAB LES Final Result [facility] [address] [place] [address] [phone] * CT Abdomen Pelvis w/o Contrast (02/24/2024 7:59 PM EST) Anatomical Region Laterality Modality Body, Pelvis, Abdomen Computed T omography 02/24/2024 7:59 PM EST Narrative 02/24/2024 8:01 PM EST ? [facility] ?[address] ?[place] ? CT Scan Report ? Signed ? Patient: Jaramillo,Hector ?MR#: [id number] ?? 5 ? : 1945 ?Acct:[id number] ? Age/Sex: 78 / M ?ADM Date: 02/24/24 ? Loc: HO.ED ? Attending Dr: ? Ordering Physician: Samantha Capone MD ?? Date of Service: 02/24/24 ?? Procedure(s): CT abdomen pelvis wo IV con ?? Accession Number(s): [id number] ? cc: Natacha Olivas MD; Samantha Capone MD ? Report Number: ?? [id number]: Total DLP = ??478.00 mGy-cm ? CLINICAL HISTORY: Left-sided abdominal pain question diverticulitis ? CT abdomen and pelvis without contrast ? Comparison: CT/SR - CT ABDOMEN PELVIS WO IV CON - 12/19/23 02:35 EDT ?? CT/IL/SR - CT ABDOMEN PELVIS WO IV CON - 06/14/23 15:20 EDT ?? CT - CT ABDOMEN PELVIS WO CON - 09/05/20 21:56 EDT ? Findings: ?? The lung bases are clear. ?? Mild cardiomegaly. Coronary artery calcifications present. ? Innumerable small stones throughout the gallbladder. ?? Spleen, adrenal glands, pancreas, liver are unremarkable. Right kidney is ?? normal. No right ureteral stone. ?? There is a 6 cm cyst in the superior pole of the left kidney. Moderate ?? left hydronephrosis present. Diffuse left perinephric stranding present. ?? Mild to moderate left hydroureter. No stones within the kidney or the ?? ureter. This appearance of the left kidney is similar dating back to ?? 06/14/2023, although hydroureteronephrosis has worsened slightly. No renal ?? stones. ?? No bowel obstruction, pneumoperitoneum, or pneumatosis. There are ?? scattered colonic diverticula, however no evidence of diverticulitis. ? Pelvic contents unremarkable. Normal appendix. ?? Urinary bladder is decompressed and thick-walled. ?? No acute fracture. ? IMPRESSION: ?? 1. Persistent left perinephric and periureteral stranding with moderate ?? left hydroureteronephrosis. Collecting system dilation has worsened ?? slightly in comparison to 06/14/2023. No stone in the ureter. Findings ?? raise concern for ureteral stricture or malignancy, Versus upper tract ?? infection. ? This document has been electronically signed by: Joel Mejia MD on ?? 02/24/2024 19:59:29 ? Dictated By: ?Joel Mejia MD ? Signed By: ?<Electronically signed by Joel Mejia MD in OV> ? 02/24/241999 ? DD/ 58 ? TD/TT: 02/24/241958 ? Software Development Analyst: ? Procedure Note Freda, Herve - 02/24/[address] [address] [address] Scan Report Signed Patient: Hector JaramilloMR#: [id number] 5 : [id number]:[id number] Age/Sex: 78 / MADM Date: 02/24/24 Loc: HO.ED Attending Dr: Ordering Physician: Samantha Capone MD Date of Service: 02/24/24 Procedure(s): CT abdomen pelvis wo IV con Accession Number(s): [id number] cc: Natacha Olivas MD; Samantha Capone MD Report Number: [id number]: Total DLP = 478.00 mGy-cm CLINICAL HISTORY: Left-sided abdominal pain question diverticulitis CT abdomen and pelvis without contrast Comparison: CT/SR - CT ABDOMEN PELVIS WO IV CON - 12/19/23 02:[address]/[place]/SR - CT ABDOMEN PELVIS WO IV CON - 06/14/23 15:[address] - CT ABDOMEN PELVIS WO CON - 09/05/20 21:56 EDT Findings: The lung bases are clear. Mild cardiomegaly. Coronary artery calcifications present. Innumerable small stones throughout the gallbladder. Spleen, adrenal glands, pancreas, liver are unremarkable. Right kidney is normal. No right ureteral stone. There is a 6 cm cyst in the superior pole of the left kidney. Moderate left hydronephrosis present. Diffuse left perinephric stranding present. Mild to moderate left hydroureter. No stones within the kidney or the ureter. This appearance of the left kidney is similar dating back to 06/14/2023, although hydroureteronephrosis has worsened slightly. No renal stones. No bowel obstruction, pneumoperitoneum, or pneumatosis. There are scattered colonic diverticula, however no evidence of diverticulitis. Pelvic contents unremarkable. Normal appendix. Urinary bladder is decompressed and thick-walled. No acute fracture. IMPRESSION: 1. Persistent left perinephric and periureteral stranding with moderate left hydroureteronephrosis. Collecting system dilation has worsened slightly in comparison to 06/14/2023. No stone in the ureter. Findings raise concern for ureteral stricture or malignancy, Versus upper tract infection. This document has been electronically signed by: Joel Mejia MD on 02/24/2024 19:59:29 Dictated By: Joel Mejai MD Signed By: <Electronically signed by Joel Mejia MD in OV> 02/24/241999 DD/ 58 TD/TT: 02/24/241958 Software Development Analyst: [facility] External Provider IMG CT PROCEDURES Edited Result - Final * Lactic Acid (02/24/2024 6:36 PM EST) Lactic Acid 1.8 0.5 - 2.0 mmol/L [facility] 02/24/2024 6:36 PM EST 02/24/2024 6:41 PM EST Generic External Data Provider LAB BLOOD ORDERAB LES Final Result [facility] [address], [place] [phone] * (ABNORMAL) CBC auto differential (02/24/2024 3:16 PM EST) White Blood Count 19.7(H) 4.8 - 10.8 X10*3/uL [facility] Red Blood Count 4.68 4.60 - 5.80 X10*6/uL [facility] Hemoglobin 12.2(L) 14.0 - 18.0 g/dl [facility] Hematocrit 37.5(L) 42.0 - 52.0 % [facility] Mean Corpuscular Volume 80.1 80.0 - 98.0 fL [facility] Mean Corpuscular Hemoglobin 26.1(L) 27.0 - 33.0 pg [facility] Mean Corpuscular HGB Conc 32.5 31.0 - 36.0 g/dl [facility] Red Cell Distribution Width 15.9 11.0 - 16.0 % [facility] Platelet Count 316 160 - 400 X10*3/uL [facility] Mean Platelet Volume 9.0(L) 9.4 - 12.4 fL [facility] Neutrophils Percent Auto 87.5(H) 45 - 73 % [facility] Imm Gran Pct Auto 0.5(H) 0.0 - 0.4 % [facility] Lymphocytes Percent Auto 4.4(L) 20 - 40 % [facility] Monocytes Percent Auto 7.3 2 - 11 % [facility] Eosinophils Percent Auto 0.1 0 - 4 % [facility] Basophils Percent Auto 0.2 0 - 2 % [facility] NRBC Pct Auto 0.0 0.0 - 0.2 /100WBC [facility] Neutrophils Absolute Auto 17.3(H) 2.0 - 8.3 x10*3/uL [facility] Imm Gran Abs Auto 0.09(H) 0.00 - 0.03 X10*3/uL [facility] Lymphocytes Absolute Auto 0.9(L) 1.2 - 4.9 X10*3/uL [facility] Monocytes Absolute Auto 1.4(H) 0.1 - 1.2 X10*3/uL [facility] Eosinophils Absolute Auto 0.0 0.0 - 0.4 X10*3/uL [facility] Basophils Absolute Auto 0.0 0.0 - 0.2 X10*3/uL [facility] NRBC Abs Auto 0.000 0.0 - 0.012 X10*3/uL [facility] 02/24/2024 3:16 PM EST 02/24/2024 3:20 PM EST us Generic External Data Provider LAB BLOOD ORDERAB LES Final Result [facility] [address] [place] [phone] * (ABNORMAL) Comprehensive Metabolic Panel (02/24/2024 3:16 PM EST) Sodium 134(L) 135 - 145 mmol/L [facility] Potassium 4.2 3.3 - 5.1 mmol/L [facility] Chloride 105 96 - 108 mmol/L [facility] Carbon Dioxide 17(L) 22 - 29 mmol/L [facility] Anion Gap 16 12 - 20 [facility] Urea Nitrogen (BUN) 28(H) 9 - 16 mg/dL [facility] Creatinine, Serum 2.47(H) 0.5 - 1.4 mg/dL [facility] Creatinine Clr Calc Pharmacy 22.6 [facility] Comment:eGFR (calculated fro m the MDRD study equation) and eCrCl(calculated from the Cockcroft-Gault equation) are based ondifferent parameters and may not yield comparable results.If eCrCl result is absurd, please check patient'sheight/weight. Estimated Glomerular Filt Rate 26 [facility] Comment:Chronic Kidney Disea se: Estimated GFR < 60 mL/min/1.90y3Bdsjod Kidney Disease: Estimated GFR < 15 mL/min/1.73m2 Glucose 232(H) 60 - 115 mg/dL [facility] Calcium 9.3 8.4 - 10.2 mg/dL [facility] Bilirubin, Total 0.6 0.0 - 1.0 mg/dL [facility] Aspartate Amino Transferase 13 5 - 37 U/L [facility] Alanine Aminotransferase <6 0 - 40 U/L [facility] Total Protein 8.5(H) 6.5 - 8.0 g/dL [facility] Albumin Level 3.6 3.5 - 5.0 g/dL [facility] Alkaline Phosphatase 101 39 - 117 U/L [facility] 02/24/2024 3:16 PM EST 02/24/2024 3:20 PM EST us Generic External Data Provider LAB BLOOD ORDERAB LES Final Result Performing Organization Address [facility]/ZIP Co de Phone Number [facility] [address] [place] [phone] * (ABNORMAL) Glucose, Whole Blood (02/18/2024 11:47 AM EST) Glucose, Whole Blood 399(HH) 60 - 115 mg/dL [facility] Comment:METER #: [id number] Testing performed in the Endocrinology Department [address] , [address], [facility]. 02/18/2024 11:4 7 AM EST 02/18/2024 11:55 AM EST us Generic External Data Provider LAB BLOOD ORDERAB LES Final Result Performing Organization Address [facility] Co de Phone Number [facility] [address] [place] [phone] * (ABNORMAL) Hemoglobin A1c (01/23/2024 11:00 AM EST) Hemoglobin A1c 8.0(H) <6.0 % [facility] Comment:Hemoglobin A1C Refer ence Range Adults: 4.8 - 6.0 % Non diabetic: < 6.0 % Goal: < 7.0 %Additional Action Suggested: > 8.0 %Note: Hemoglobin A1c results are invalid for patients with abnormal amounts of HbF. Blood transfusions may impact the HbA1c concentration in the patient sample. Estimated Average Glucose 183 mg/dL [facility] Comment:eAG = Estimated ave rage glucose which is %A1C expressed asaverage glucose, using the formula of the X7J-LakmkrsGpokudf Glucose study (ADAG), Diabetes Care, Vol.31,#8,Sep. 2007 Blood Venous blood specimen / Unknown 01/23/2024 11:00 AM EST 01/23/2024 12:56 PM EST Natacha Olivas MD LAB BLOOD ORDERABLES Final Result Performing Organization Address [facility]/ZIP Co de Phone Number [facility] [address] [place] [phone] * (ABNORMAL) Hepatic Function Panel (01/23/2024 11:00 AM EST) Bilirubin, Total 0.3 0.0 - 1.0 mg/dL [facility] Bilirubin, Direct 0.1 0.0 - 0.5 mg/dL [facility] Aspartate Amino Transferase 18 5 - 37 U/L [facility] Alanine Aminotransferase 8 0 - 40 U/L [facility] Total Protein 8.1(H) 6.5 - 8.0 g/dL [facility] Albumin Level 3.4(L) 3.5 - 5.0 g/dL [facility] Alkaline Phosphatase 96 39 - 117 U/L [facility] Blood Venous blood specimen / Unknown 01/23/2024 11:00 AM EST 01/23/2024 12:56 PM EST Natacha Olivas MD LAB BLOOD ORDERABLES Final Result Performing Organization Address [facility]/ZIP Co de Phone Number [facility] [address] [place] [phone] * (ABNORMAL) Lipid Panel, Standard (01/23/2024 11:00 AM EST) Triglycerides 258(H) <150 mg/dL [facility] Comment:Desirable Triglyceri de: less than 150 mg/dLBorderline High Triglyceride 150-199 mg/dLHigh Triglyceride: 200-499 mg/dLVery High Triglyceride: greater than or equal to 5OO mg/dL Cholesterol 196 <200 mg/dL [facility] Comment:Desirable Cholestero l: less than 200 mg/dLBorderline High Cholesterol: 200-239 mg/dLHigh Cholesterol: greater than 239 mg/dL LDL Cholesterol Calculated 107(H) <100 mg/dL [facility] Comment:Desirable LDL: less than 100 mg/dLNear Optimal/Above Optimal LDL: 110- 129 mg/dLBorderline High LDL: 130-159 mg/dLHigh LDL: 160-189 mg/dLVery High LDL: greater than or equal to 190 mg/dL HDL Cholesterol 38(L) >40 mg/dL [facility] Comment:Desirable HDL: great er than 40 mg/dL Note: This HDL assay may give artificially low results in patients with liver disease. Blood Venous blood specimen / Unknown 01/23/2024 11:00 AM EST 01/23/2024 12:56 PM EST us Natacha Olivas MD LAB BLOOD ORDERABLES Final Result [facility] [address] [place] [phone] * (ABNORMAL) Basic Metabolic Panel (01/23/2024 11:00 AM EST) Sodium 137 135 - 145 mmol/L [facility] Potassium 4.5 3.3 - 5.1 mmol/L [facility] Chloride 105 96 - 108 mmol/L [facility] Carbon Dioxide 23 22 - 29 mmol/L [facility] Anion Gap 14 12 - 20 [facility] Urea Nitrogen (BUN) 34(H) 9 - 16 mg/dL [facility] Creatinine, Serum 1.99(H) 0.5 - 1.4 mg/dL [facility] Estimated Glomerular Filt Rate 33 [facility] Comment:Chronic Kidney Disea se: Estimated GFR < 60 mL/min/1.15u3Xhavko Kidney Disease: Estimated GFR < 15 mL/min/1.73m2 Glucose 297(H) 60 - 115 mg/dL [facility] Calcium 9.4 8.4 - 10.2 mg/dL [facility] Blood Venous blood specimen / Unknown 01/23/2024 11:00 AM EST 01/23/2024 12:56 PM EST Natacha Olivas MD LAB BLOOD ORDERABLES Final Result Performing Organization Address [facility] Co de Phone Number [facility] [address] [place] [phone] * Hepatitis C Ab (11/15/2022 10:56 AM EDT) Hepatitis C Antibody Nonreactive Nonreactive [facility] Comment:Antibodies to HCV no t detected; does not exclude early acuteHCV infection. Blood 11/15/2022 10:5 6 AM EDT 11/15/2022 12:56 PM EDT Natacha Olivas MD LAB BLOOD ORDERABLES Final Result Performing Organization Address City/[facility]/ZIP Co de Phone Number [facility] [address] [place] [phone] * Diabetes Eye Exam (10/17/2022) Eye Exam Normal Normal Historical Provider HEALTH MAINTENANCE Final Result * Colonoscopy (01/06/2021) Colonoscopy tubular adenoma with Dr. Sands Historical Medardo [facility] HEALTH MAINTENANCE Final Result from Last 3 Months or Most Recently Relevant to Health Maintenance Insurance [facility] STANDARD MEDICARE Advance Directives Documents on File Type Date Recorded Patient Controls Project Engineer Expl anation Advance Directives and Living Will 01/24/2024 10:49 AM Health Care Proxy Care Teams Mop Maker Relationship Specialty Start Date End Date [place], [place] Natacha [address] [place] [phone] PCP - General Family Medicine 09/05/13 Rukhsana Penaloza PharmD [address] [place] [address] Pharmacist Internal Medicine 07/13/22 Ebenezer Earl MD [address] [place] [address] Urology 02/18/24 [facility] 08/08/23 Ember Krishnamurthy PA-C [facility] Endocrinology Endocrinology 02/18/24
--- OUTSIDE RECORDS SUMMARY | 2024-04-15 15:07 | XMS_ITS | Encounter Summary ---
Author Organization [employer] Address [address] [place] [address] Care Team Providers Care Pad Machine Operator Name Role Phone Steven Saez MD Primary Care Provider [phone] Encounter Details Date Type Department Care Team (Late st Contact Info) Description 02/29/2024 Lab Requisition [facility] [address] [place] [address] Steven Saez MD [address] [place] [address], [phone] Essential (primary) hypertension; Type 2 diabetes mellitus without complications (CMS/HCC) Social History Tobacco Use Types Packs/Day Years Used Date Smoking Tobacco: Never Assessed Sex and Gender Information Value Date Recorded Sex Assigned at Not on file Legal Sex Male 8:07 PM EST Gender Identity Not on file Sexual Orientation Not on file documented as of this encounter Plan of Treatment Not on file documented as of this encounter Procedures Procedure Name Priority Date/Time Associated Diagnosis Comments CBC WITH AUTO DIFFERENTIAL Routine 02/29/2024 9:02 [...] Type 2 diabetes mellitus without complications (CMS/HCC) documented in this encounter Results * (ABNORMAL) CBC auto differential (02/29/2024 9:02 AM EST) [facility] WBC 6.5 4.8 - 10.8 K/mcL LAB HEMETOLOGY METHOD 02/29/2024 11:51 AM [facility] RBC 4.20(L) 4.50 - 5.50 M/mcL LAB HEMETOLOGY METHOD 02/29/2024 11:51 AM [facility] Hemoglobin 10.9(L) 13.5 - 17.5 g/dL LAB HEMETOLOGY METHOD 02/29/2024 11:51 AM [facility] Hematocrit 36.0(L) 42.0 - 54.0 % LAB HEMETOLOGY METHOD 02/29/2024 11:51 AM [facility] MCV 85.1 79.0 - 98.0 FL LAB HEMETOLOGY METHOD 02/29/2024 11:51 AM [facility] MCH 25.8(L) 27.0 - 32.0 pcg LAB HEMETOLOGY METHOD 02/29/2024 11:51 AM [facility] MCHC 30.3(L) 32.0 - 37.0 g/dL LAB HEMETOLOGY METHOD 02/29/2024 11:51 AM [facility] RDW 16.3(H) 11.0 - 15.0 % LAB HEMETOLOGY METHOD 02/29/2024 11:51 AM [facility] Platelets 383 130 - 400 K/mcL LAB HEMETOLOGY METHOD 02/29/2024 11:51 AM [facility] MPV 10.1 7.0 - 11.0 FL LAB HEMETOLOGY METHOD 02/29/2024 11:51 AM [facility] NRBC 0.0 <1.0 % LAB HEMETOLOGY METHOD 02/29/2024 11:51 AM [facility] NRBC Absolute 0.00 <0.10 K/mcL LAB HEMETOLOGY METHOD 02/29/2024 11:51 AM [facility] Neutrophils Relative 68.3 % LAB HEMETOLOGY METHOD 02/29/2024 11:51 AM [facility] Lymphocytes Relative 20.4 % LAB HEMETOLOGY METHOD 02/29/2024 11:51 AM [facility] Monocytes Relative 6.1 % LAB HEMETOLOGY METHOD 02/29/2024 11:51 AM [facility] Eosinophils Relative 4.1 % LAB HEMETOLOGY METHOD 02/29/2024 11:51 AM [facility] Basophils Relative 0.5 % LAB HEMETOLOGY METHOD 02/29/2024 11:51 AM [facility] Immature Granulocytes Relative 0.6 % LAB HEMETOLOGY METHOD 02/29/2024 11:51 AM [facility] Neutrophils Absolute 4.45 1.50 - 7.00 K/mcL LAB HEMETOLOGY METHOD 02/29/2024 11:51 AM [facility] Lymphocytes Absolute 1.33 1.00 - 5.00 K/mcL LAB HEMETOLOGY METHOD 02/29/2024 11:51 AM [facility] Monocytes Absolute 0.40 0.20 - 1.00 K/mcL LAB HEMETOLOGY METHOD 02/29/2024 11:51 AM [facility] Eosinophils Absolute 0.27 0.00 - 0.50 K/mcL LAB HEMETOLOGY METHOD 02/29/2024 11:51 AM EST [facility] Basophils Absolute 0.03 0.00 - 0.20 K/Health system LAB HEMETOLOGY METHOD 02/29/2024 11:51 AM EST [facility] Immature Granulocytes Absolute 0.04(H) 0.00 - 0.03 K/Health system LAB HEMETOLOGY METHOD 02/29/2024 11:51 AM EST [facility] Blood Venous blood specimen / Unknown Venipuncture / Unknown 02/29/2024 9:02 AM EST 02/29/2024 11:24 AM EST us Steven Saez MD LAB BLOOD ORDERABLES Final Resul t Performing Organization Address [facility]/ZIP Co de Phone Number [facility] [address] [place] [address], [place] [phone] * (ABNORMAL) Hemoglobin A1c (02/29/2024 9:02 AM EST) Hemoglobin A1C 8.3(H) <6.5 % LAB CHEMISTRY METHOD 02/29/2024 2:01 PM EST [facility] Mean Bld Glu Estim. 192 mg/dL LAB CHEMISTRY METHOD 02/29/2024 2:01 PM [facility] Blood Venous blood specimen / Unknown Venipuncture / Unknown 02/29/2024 9:02 AM EST 02/29/2024 11:24 AM EST us Steven Saez MD LAB BLOOD ORDERABLES Final Resul t [facility] [address] [place] [address], [place] [phone] * (ABNORMAL) Comprehensive metabolic panel (02/29/2024 9:02 AM EST) Sodium 139 133 - 145 mmol/L LAB CHEMISTRY METHOD 02/29/2024 1:00 PM [facility] Potassium 4.4 3.5 - 5.5 mmol/L LAB CHEMISTRY METHOD 02/29/2024 1:00 PM [facility] Chloride 107 96 - 110 mmol/L LAB CHEMISTRY METHOD 02/29/2024 1:00 PM [facility] CO2 26 21 - 32 mmol/L LAB CHEMISTRY METHOD 02/29/2024 1:00 PM [facility] Anion Gap 6 3 - 11 LAB CHEMISTRY METHOD 02/29/2024 1:00 PM [facility] Glucose 147(H) 70 - 100 mg/dL LAB CHEMISTRY METHOD 02/29/2024 1:00 PM [facility] BUN 27(H) 5 - 25 mg/dL LAB CHEMISTRY METHOD 02/29/2024 1:00 PM [facility] Creatinine 2.05(H) 0.70 - 1.30 mg/dL LAB CHEMISTRY METHOD 02/29/2024 1:00 PM [facility] eGFR 33(L) >=60 mL/min/1. 73m2 LAB CHEMISTRY METHOD 02/29/2024 1:00 PM [facility] Comment:Calculation based on the??Chronic Kidney Disease Epidemiology Collaboration (CKD-EPI) equation refit??without adjustment for race. BUN/Creatinine Ratio 13.2 LAB CHEMISTRY METHOD 02/29/2024 1:00 PM [facility] Calcium 8.9 8.5 - 10.5 mg/dL LAB CHEMISTRY METHOD 02/29/2024 1:00 PM [facility] AST (SGOT) 9(L) 10 - 42 unit/L LAB CHEMISTRY METHOD 02/29/2024 1:00 PM [facility] ALT (SGPT) 9(L) 10 - 60 unit/L LAB CHEMISTRY METHOD 02/29/2024 1:00 PM [facility] Alkaline Phosphatase 98 42 - 121 unit/L LAB CHEMISTRY METHOD 02/29/2024 1:00 PM EST [facility] Total Protein 7.2 6.0 - 8.0 g/dL LAB CHEMISTRY METHOD 02/29/2024 1:00 PM EST [facility] Albumin 2.5(L) 3.2 - 5.0 g/dL LAB CHEMISTRY METHOD 02/29/2024 1:00 PM EST [facility] Total Bilirubin 0.3 0.0 - 1.4 mg/dL LAB CHEMISTRY METHOD 02/29/2024 1:00 PM EST [facility] Blood Venous blood specimen / Unknown Venipuncture / Unknown 02/29/2024 9:02 AM EST 02/29/2024 11:24 AM EST us Steven Saez MD LAB BLOOD ORDERABLES Final Resul t [facility] [address] [place] [address], documented in this encounter Visit Diagnoses Diagnosis Essential (primary) hypertension Unspecified essential hypertension Type 2 diabetes mellitus without complications (CMS/HCC) documented in this encounter Care Teams Pad Machine Operator Relationship Specialty Start Date End Date Steven Saez MD [address] [place] [address], [phone] PCP - General Family Medicine 02/29/24 documented as of this encounter
--- OUTSIDE RECORDS SUMMARY | 2024-04-15 15:07 | XMS_ITS | Encounter Summary ---
Author Organization [facility], Address [address] [place] [address] Phone Care Team Providers Care Pneumatic Tube Fitter Name Role Phone Natacha Olivas MD Primary Care Provider U bran Encounter Details Date Type Department Care Team (Late st Contact Info) Description 12/26/2021 Documentation Only [facility], [address] [place] [phone] Ana Browning PA Social History Tobacco Use [...] on filedocumented in this encounter Care Teams Pneumatic Tube Fitter Relationship Specialty Start Date End Date Natacha Olivas MD PCP - General 12/24/18 documented as of this encounter
--- OUTSIDE RECORDS SUMMARY | 2024-04-15 15:07 | XMS_ITS | Encounter Summary ---
Author Organization [facility], Address [address] [place] [address] Phone Care Team Providers Care Account Development Specialist Name Role Phone Natacha Olivas MD Primary Care Provider U bran Encounter Details Date Type Department Care Team (Late st Contact Info) Description 09/08/2022 Documentation Only [facility], [address] [place] [phone] Ana Browning PA Social History Tobacco Use [...] on filedocumented in this encounter Care Teams Account Development Specialist Relationship Specialty Start Date End Date Natacha Olivas MD PCP - General 12/24/18 documented as of this encounter
--- OUTSIDE RECORDS SUMMARY | 2024-04-15 15:07 | XMS_ITS | Encounter Summary ---
Author Organization [email or web address] Address [address] [place] [address] Care Team Providers Care Lead Systems Developer Name Role Phone Steven Saez MD Primary Care Provider [phone] Encounter Details Date Type Department Care Team (Late st Contact Info) Description 03/18/2024 Lab Requisition [facility] - Main Lab [address] [facility] [place] [address] Steven Saez MD [address] [place] [address], [address] Chronic kidney disease, unspecified Social History Tobacco Use Types Packs/Day Years [...] Procedure Name Priority Date/Time Associated Diagnosis Comments COMPLETE BLOOD COUNT Routine 03/19/2024 7:28 AM EST Chronic kidney disease, unspecified BASIC METABOLIC PANEL Routine 03/19/2024 7:28 AM EST Chronic kidney disease, unspecified documented in this encounter Results * (ABNORMAL) Basic metabolic panel (03/19/2024 7:28 AM EST) Sodium 137 133 - 145 mmol/L LAB CHEMISTRY METHOD 03/19/2024 12:35 PM [facility] Potassium 3.9 3.5 - 5.5 mmol/L LAB CHEMISTRY METHOD 03/19/2024 12:35 PM [facility] Chloride 103 96 - 110 mmol/L LAB CHEMISTRY METHOD 03/19/2024 12:35 PM [facility] CO2 29 21 - 32 mmol/L LAB CHEMISTRY METHOD 03/19/2024 12:35 PM [facility] Anion Gap 5 3 - 11 LAB CHEMISTRY METHOD 03/19/2024 12:35 PM [facility] Glucose 139(H) 70 - 100 mg/dL LAB CHEMISTRY METHOD 03/19/2024 12:35 PM [facility] BUN 23 5 - 25 mg/dL LAB CHEMISTRY METHOD 03/19/2024 12:35 PM [facility] Creatinine 1.89(H) 0.70 - 1.30 mg/dL LAB CHEMISTRY METHOD 03/19/2024 12:35 PM [facility] eGFR 36(L) >=60 mL/min/1. 73m2 LAB CHEMISTRY METHOD 03/19/2024 12:35 PM [facility] Comment:Calculation based on the??Chronic Kidney Disease Epidemiology Collaboration (CKD-EPI) equation refit??without adjustment for race. BUN/Creatinine Ratio 12.2 LAB CHEMISTRY METHOD 03/19/2024 12:35 PM [facility] Calcium 9.0 8.5 - 10.5 mg/dL LAB CHEMISTRY METHOD 03/19/2024 12:35 PM [facility] Blood Venous blood specimen / Unknown Venipuncture / Unknown 03/19/2024 7:28 AM EST 03/19/2024 11:08 AM EST Steven Saez MD LAB BLOOD ORDERABLES Final Resul t [facility] [address] [place] [address], * (ABNORMAL) Complete blood count (03/19/2024 7:28 AM EST) WBC 5.5 4.8 - 10.8 K/mcL LAB HEMETOLOGY METHOD 03/19/2024 12:29 PM [facility] RBC 4.50 4.50 - 5.50 M/mcL LAB HEMETOLOGY METHOD 03/19/2024 12:29 PM [facility] Hemoglobin 11.8(L) 13.5 - 17.5 g/dL LAB HEMETOLOGY METHOD 03/19/2024 12:29 PM [facility] Hematocrit 39.0(L) 42.0 - 54.0 % LAB HEMETOLOGY METHOD 03/19/2024 12:29 PM [facility] MCV 86.9 79.0 - 98.0 FL LAB HEMETOLOGY METHOD 03/19/2024 12:29 PM [facility] MCH 26.3(L) 27.0 - 32.0 pcg LAB HEMETOLOGY METHOD 03/19/2024 12:29 PM [facility] MCHC 30.3(L) 32.0 - 37.0 g/dL LAB HEMETOLOGY METHOD 03/19/2024 12:29 PM [facility] RDW 16.0(H) 11.0 - 15.0 % LAB HEMETOLOGY METHOD 03/19/2024 12:29 PM [facility] Platelets 239 130 - 400 K/mcL LAB HEMETOLOGY METHOD 03/19/2024 12:29 PM [facility] MPV 10.1 7.0 - 11.0 FL LAB HEMETOLOGY METHOD 03/19/2024 12:29 PM EST [facility] NRBC 0.0 <1.0 % LAB HEMETOLOGY METHOD 03/19/2024 12:29 PM EST [facility] NRBC Absolute 0.00 <0.10 K/mcL LAB HEMETOLOGY METHOD 03/19/2024 12:29 PM EST [facility] Blood Venous blood specimen / Unknown Venipuncture / Unknown 03/19/2024 7:28 AM EST 03/19/2024 11:08 AM EST us Steven Saez MD LAB BLOOD ORDERABLES Final Resul t [facility] [address] [place] [address], [place] [phone] documented in this encounter Visit Diagnoses Diagnosis Chronic kidney disease, unspecified documented in this encounter Care Teams Lead Systems Developer Relationship Specialty Start Date End Date Steven Saez MD [address] [place] [address] [address] [place], [address] PCP - General Family Medicine 02/29/24 documented as of this encounter
== END 2024-04-15 13:39 | disposition home or self-care (01) ==
PROVIDERS: PCP Family Medicine; Visit Provider Urology
DX: N39.0 Urinary tract infection, site not specified (principal); N40.0 Benign prostatic hyperplasia without lower urinary tract symptoms; N13.30 Unspecified hydronephrosis; Z13.9 Encounter for screening, unspecified
CPT/HCPCS: 99213; G2211

== ENCOUNTER 2024-05-13 11:05 | Emergency (ER) | payer MEDICARE, MEDICAID, SELFPAY ==
[2024-05-13] VITALS (8 sets, daily range): BP systolic 117–147; BP diastolic 50–60; PULSE 56–82; RESP 13–18; TEMP 36.5–36.7; O2SAT 95–99; BMI 24.6
--- NOTE | ~2024-05-13 | CT_ITS ---
EXAMINATION: CT HEAD WITHOUT IV CONTRAST HISTORY: Severe headache, history of stroke with left-sided. TECHNIQUE: Unenhanced helical CT of the head was performed per standard departmental protocol. Coronal and sagittal reformats of the head were also evaluated. One or more of the following techniques was used for dose reduction: Automated exposure control, adjustment of the mA and/or kV according to patient size, use of iterative reconstruction technique. DLP: 653 mGy-cm COMPARISON: Comparison is made with the prior examination dated 11/08/2023. FINDINGS: BRAIN: There is diffuse prominence of the ventricular system and cortical sulci, consistent with atrophy. Periventricular and subcortical white matter hypodensities are noted which are nonspecific, but often seen in the setting of small vessel ischemic disease. 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 There is no mass effect or midline shift. No intra- or extra-axial fluid collections are identified. SINUSES: The visualized paranasal sinuses are clear. The mastoid air cells and middle ear cavities are well pneumatized. ORBITS: The visualized orbits are unremarkable. BONES/SOFT TISSUES: The extracranial soft tissues are unremarkable. The calvarium is intact. No suspicious lytic or sclerotic lesions. CT/CT head/brain wo IV con IMPRESSION: No acute intracranial abnormality. Electronically signed by: Merlin Fuentes MD 05/13/2024 12:34 PM EDT
--- NOTE | ~2024-05-13 | XR_ITS ---
EXAMINATION: XR CHEST CLINICAL INFORMATION: Chest pain, rule out pneumonia, CHF COMPARISON: February 25, 2024. TECHNIQUE: Frontal view of the chest was obtained. FINDINGS: Pulmonary reticular pattern. No consolidation, pleural effusion or pneumothorax cardiomediastinal silhouette size is normal. Calcified plaque thoracic aortic arch. Multilevel thoracic stenosis. Degenerative changes in the acromioclavicular joints. XR/XR chest 1V IMPRESSION: No acute airspace disease. Electronically signed by: Mac Smith MD 05/13/2024 12:12 PM EDT
--- NOTE | 2024-05-13 11:09 | ED.WEAKNESS ---
HPI - Weakness General Chief complaint: General Medical Stated complaint: DIZZY,WEAK,CARTER Time Seen by Provider: 05/13/24 11:07 Source: patient Mode of arrival: EMS Limitations: no limitations History of Present Illness ED Provider: Dr. Christopher Brandt HPI Narrative: 78-year-old male with a history of NSTEMI, diabetes, diverticulosis, BPH, GERD, chronic kidney disease, hyperlipidemia who presents to the emergency department for evaluation of weakness, headache, chest pain, shortness of breath, frequency and dysuria, left foot pain. The patient states that he has had a headache x2 days. He states that the headache came on suddenly and was worse today. Describes the headache as a constant pressure-like pain located throughout his entire head. He states he was had similar headaches in the past but this 1 is more severe. He states that the headache is 8/10 at its worse. Patient was also complaining of chest pain. He states that the pain started today and came on gradually. He describes it as a pressure-like pain located in the center of his chest, the pain does not radiate to his neck, jaw or arms. He states he was had similar pain in the past as well. Patient states he feels occasionally short of breath. Patient was also complaining of left foot pain. He states he was had this pain since his stroke 1 year prior. Describes the pain as being a sharp pain at the bottom of his foot. The patient has left-sided paralysis and states he does not walk. States the pain is 8/10 and is constant. Review of systems was positive for frequency and dysuria. Review of systems was negative for fever, chills, rhinorrhea, sore throat, cough, nausea, vomiting, diarrhea, dark stools or bloody stools. Related Data Home Medications ?Medication ?Instructions ?Recorded ?Confirmed amlodipine 5 mg tablet (Norvasc) 5 mg PO BEDTIME 04/10/23 05/13/24 gabapentin 300 mg capsule 300 mg PO BEDTIME 04/10/23 05/13/24 carvedilol 6.25 mg tablet 6.25 mg PO BIDWM 12/19/23 05/13/24 multivitamin 1 tab PO DAILY 12/19/23 05/13/24 insulin glargine U-300 conc 300 15 unit subcut BEDTIME 02/25/24 05/13/24 unit/mL (1.5 mL) subcutaneous pen (Toujeo SoloStar U-300 Insulin) doxazosin 4 mg tablet 4 mg PO BEDTIME 05/13/24 furosemide 20 mg tablet 20 mg PO Q OTHER DAY 05/13/24 05/13/24 insulin glargine U-300 conc 300 10 unit subcut DAILY@0900 05/13/24 05/13/24 unit/mL (1.5 mL) subcutaneous pen (Toujeo SoloStar U-300 Insulin) insulin lispro 100 unit/mL 10 unit subcut BID@0745,1145 05/13/24 05/13/24 subcutaneous pen insulin lispro 100 unit/mL 15 unit subcut DAILY@1645 05/13/24 05/13/24 subcutaneous pen methenamine hippurate 1 gram tablet 1 g PO DAILY 05/13/24 05/13/24 mirtazapine 15 mg disintegrating 15 mg PO BEDTIME 05/13/24 05/13/24 tablet Previous Rx's ?Medication ?Instructions ?Recorded lancets 33 gauge (OneTouch Delica #200 ea 04/28/21 Lancets) finasteride 5 mg tablet 5 mg PO DAILY 90 days #90 tabs 02/12/24 blood sugar diagnostic (OneTouch #150 ea 02/18/24 Verio test strips) blood-glucose meter #1 ea 02/18/24 blood-glucose sensor (Dexcom G7 #3 ea 02/18/24 Sensor device) empagliflozin 25 mg tablet 25 mg PO DAILY #90 tabs 02/18/24 (Jardiance) lancets 30 gauge (OneTouch #100 ea 02/18/24 UltraSoft 2 Lancet) pen needle, diabetic 32 gauge x #100 ea 03/07/24 5/32 (Pentips Pen Needle) ascorbic acid (vitamin C) 1,000 mg 1,000 mg PO DAILY 90 days #90 tabs 04/15/24 tablet Allergies Allergy/AdvReac Type Severity Reaction Status Date / Time No Known Allergies Allergy Mild N/A Verified 05/13/24 11:29 Review of Systems Review of Systems: Yes all other systems are reviewed and are negative [facility] Past Medical History [facility] Narrative: Social history: The patient lives at home with his . He states he does have a CHAIR MAKER at comes in during the day. He states that he does not think that he was getting good care at home since his works all the time and he was CHAIR MAKER does not know how to care for him. He was requesting case management consult for possible placement. Medical History NSTEMI (non-ST elevated myocardial infarction) Sepsis Pneumonia Type 2 diabetes mellitus with diabetic polyneuropathy Diverticulosis Erectile dysfunction BPH (benign prostatic hyperplasia) Carpal tunnel syndrome Cataracts, bilateral GERD (gastroesophageal reflux disease) Kidney stones Type 2 diabetes mellitus with chronic kidney disease Chronic kidney disease, stage 3 Type 2 diabetes mellitus with hyperglycemia Essential hypertension Hyperlipidemia LDL goal <70 Surgical History Hx of colonoscopy Hx of lithotripsy Family History Family History Father No problems noted. Mother Diabetes mellitus Brother Diabetes mellitus Sister Diabetes mellitus Social History Social History Household Members: Spouse and Children Housing: Apartment Housing Other:: Has ramp . No services Do you presently have visiting nurse or other home services: Yes ([employer]. Nurse and P.T.) Alcohol intake: never Patient Tobacco Use Status: Never used Tobacco Smoked in Last 30 Days: No Use of substances other than those prescribed or required for medical reasons: No Advance Directives: Yes Advance Directives on File: Yes Advance Directives Date on File: 04/11/23 service: No Current occupational status: retired Physical Exam Vital Signs: Vital Signs: Last Vital Signs Temp 97.7 F 05/13/24 21: Pulse 64 05/13/24 21:27 Resp 14 05/13/24 21:27 BP 117/56 L 05/13/24 21: Pulse Ox 96 05/13/24 21:27 O2 Del Method Room Air 05/13/24 21: BMI result Body Mass Index 24.6 Vital signs revealed an elevated blood pressure of 147/50 otherwise unremarkable Exam: General: Awake, alert in no distress Head: Normocephalic, atraumatic EENT: PERRL, Lids normal, sclera normal, conjunctiva normal, nose normal , ears normal, throat without erythema or exudates Neck: Supple, no adenopathy Lung: breath sounds symmetric, no wheezing, rales or rhonchi Chest: symmetric movement, nontender Heart: regular rate and rhythm, normal S1, S2 no murmurs or rubs Abdomen: soft, non-tender, nondistended, normal bowel sounds Back: no vertebral tenderness, no CVAT Extremities: Patient has left upper extremity and lower extremity paralysis with contracture of the left upper extremity. The patient does have tenderness palpation over the plantar fascia area of his left foot Neuro: General: Awake, alert, oriented, normal speech Cranial nerves: Left facial paralysis sparing the forehead Strength: Normal strength on the right side, paralysis of the left arm and left leg with minimal ability to move the arm against gravity and minimal ability to move the leg against gravity Psych: Pleasant, cooperative Medications Administered Generic Name Dose Route Start Last Admin Trade Name Freq PRN Reason Stop Dose Admin Amlodipine Besylate 5 mg 05/13/24 21:00 05/13/24 21:26 Amlodipine Besylate 5 Mg Tablet PO 5 mg BEDTIME GLENN Administration Protocol Carvedilol 6.25 mg 05/13/24 18:15 05/13/24 18:31 Carvedilol 6.25 Mg Tablet PO 6.25 mg BIDWM GLENN Administration Protocol Empagliflozin 25 mg 05/13/24 18:15 05/13/24 21:26 Empagliflozin 25 Mg Tablet PO 25 mg DAILY GLENN Administration Finasteride 5 mg 05/13/24 18:15 05/13/24 18:31 Finasteride 5 Mg Tablet PO 5 mg DAILY GLENN Administration Gabapentin 300 mg 05/13/24 21:00 05/13/24 21:26 Gabapentin 300 Mg Capsule PO 300 mg BEDTIME GLENN Administration Mirtazapine 15 mg 05/13/24 21:00 05/13/24 21:26 Mirtazapine 15 Mg Tablet PO 15 mg BEDTIME GLENN Administration Discontinued Medications Generic Name Dose Route Start Last Admin Trade Name Freq PRN Reason Stop Dose Admin Diphenhydramine HCl 25 mg 05/13/24 11:33 05/13/24 12:04 Diphenhydramine Hcl 50 Mg/Ml Vial IVPUSH 05/13/24 11:34 25 mg ONCE ONE Administration Ketorolac Tromethamine 15 mg 05/13/24 11:33 05/13/24 12:03 Ketorolac Tromethamine 15 Mg/Ml Vial IVPUSH 05/13/24 11:34 15 mg ONCE STA Administration Metoclopramide HCl 10 mg 05/13/24 11:33 05/13/24 12:04 Metoclopramide Hcl 10 Mg/2 Ml Vial IVPUSH 05/13/24 11:34 10 mg ONCE STA Administration Non-Formulary Medication 15 unit 05/13/24 21:00 05/13/24 21:33 Insulin Glargine U-300 Conc [Toujeo Solostar U-300 Insulin] SUBCUT Not Given BEDTIME [facility] Non-Formulary Medication 4 unit 05/13/24 21:00 05/13/24 21:32 Insulin Lispro [Humalog Kwikpen Insulin] SUBCUT Not Given TID [facility] Medical Decision Making Medical Decision Making [facility] Narrative: 78-year-old male with a history of NSTEMI, diabetes, diverticulosis, BPH, GERD, chronic kidney disease, hyperlipidemia who presents to the emergency department for evaluation of weakness, headache, chest pain, shortness of breath, left foot pain frequency and dysuria. Vital signs revealed an elevated blood pressure otherwise unremarkable. Physical examination did reveal left facial droop and left upper/lower extremity paralysis secondary to his stroke 1 year prior. Patient did have tenderness palpation over the plantar aspect of the left foot. He was exam was otherwise unremarkable. Differential diagnosis: ?Includes but is not limited to myocardial infarction, myocardial ischemia, costochondritis, chest wall tenderness, migraine headache, nonspecific headache, intracranial bleed, stroke, urinary tract infection, musculoskeletal pain, left foot plantar fasciitis Course: 11:50 Patient headache and left foot pain was treated with Toradol 15 mg IV, Reglan 5 mg IV and Benadryl 25 mg IV. 13:39 My interpretation patient's laboratory evaluation as follows: Normocytic anemia with an H&H of 12.5 and 37.3 she was consistent with his baseline. Patient was an elevated BUN and creatinine of 40 and 2.11 with a GFR of 31-this is chronic. Troponin was below detectable limits. COVID-19, influenza and RSV were negative. Patient was 12 EKG was unremarkable and unchanged from his previous 12 EKG. Chest x-ray revealed no acute abnormalities and CT scan of the brain revealed no acute abnormalities. The patient was feeling significantly better after the above treatment he states that his headache is resolved in his left foot pain is improved. The patient was seen by case management who requested a physical therapy consult to determine if the patient meets criteria for short-term rehab secondary to his weakness. 18:35 Start physician observation The patient's urinalysis was positive for blood, leukocyte esterase and negative for nitrates. Microscopic revealed greater than 20 RBCs, greater than 50 WBCs, 3-5 squamous cells, no bacteria. Patient was had similar urinalyses in the past with the last 1 on 02/24/2024 to grew candidiasis. At this time I do not think that the patient has a an acute urinary tract infection and a will not start him on antibiotics unless he grows a significant bacteria on his urine culture. The patient was seen by physical therapy and it was felt that he would benefit from short-term rehab. Patient was been seen by case management and they will try to get him into a rehab facility tomorrow. Patient was medications were reconciled and I did order of the patient was medications. The patient's will remain in the emergency department on observation care until disposition can be determined. I did discuss code status with the patient using are [facility] gunnery/ordnance officer and the patient wants to be a full code. Admission/Observation Consideration of admission/observation: Escalation of care including admission/observation considered (Yes) Lab Data MDM Lab Attestation statement: I reviewed the patient's lab results. 05/13/24 12:02 05/13/24 12:02 Labs: Lab Results 05/13/24 05/13/24 05/13/24 Range/Units 12:02 17:55 18:17 WBC 7.0 (4.8-10.8) X10*3/uL RBC 4.63 D (4.60-5.80) X10*6/uL Hgb 12.5 L D (14.0-18.0) g/dl Hct 37.3 L D (42.0-52.0) % MCV 80.6 (80.0-98.0) fL MCH 27.0 (27.0-33.0) pg MCHC 33.5 (31.0-36.0) g/dl RDW 15.2 (11.0-16.0) % Plt Count 226 (160-400) X10*3/uL MPV 9.3 L (9.4-12.4) fL Immature Gran % (Auto) 0.3 (0.0-0.4) % Neut % (Auto) 63.8 (45-73) % Lymph % (Auto) 24.9 (20-40) % [place] % (Auto) 7.1 (2-11) % Eos % (Auto) 3.8 (0-4) % Baso % (Auto) 0.1 (0-2) % Lymph # (Auto) 1.8 (1.2-4.9) X10*3/uL [place] # (Auto) 0.5 (0.1-1.2) X10*3/uL Eos # (Auto) 0.3 (0.0-0.4) X10*3/uL Baso # (Auto) 0.0 (0.0-0.2) X10*3/uL Abs Immat Gran (auto) 0.02 (0.00-0.03) X10*3/uL Absolute Neuts (auto) 4.5 (2.0-8.3) x10*3/uL Absolute Nucleated RBC 0.000 (0.0-0.012) X10*3/uL Nucleated RBC % (auto) 0.0 (0.0-0.2) /100WBC PT 10.4 L (10.9-12.4) SEC INR 0.9 (0.9-1.1) APTT 28.8 (26.0-36.8) SEC Sodium 139 (135-145) mmol/L Potassium 4.2 (3.3-5.1) mmol/L Chloride 112 H (96-108) mmol/L Carbon Dioxide 19 L (22-29) mmol/L Anion Gap 12 (12-20) BUN 40 H (9-16) mg/dL Creatinine 2.11 H (0.5-1.4) mg/dL Estim Creat Clear Calc 20.7 Estimated GFR 31 POC Glucose 267 H (60-115) mg/dL Random Glucose 198 H (60-115) mg/dL Calcium 9.1 (8.4-10.2) mg/dL Magnesium 2.1 (1.6-2.6) mg/dL Total Bilirubin 0.4 (0.0-1.0) mg/dL AST 19 (5-37) U/L ALT 7 (0-40) U/L Alkaline Phosphatase 83 (39-117) U/L Troponin I High Sens < 2.7 (<3.5-35.0) ng/L B-Natriuretic Peptide 27 (<100) pg/mL Total Protein 7.7 (6.5-8.0) g/dL Albumin 3.6 (3.5-5.0) g/dL Lipase 30 (8-78) U/L Urine Color Yellow Urine Appearance Turbid Urine pH 5.5 (5.0-9.0) Ur Specific [place] 1.010 (1.005-1.025) Urine Protein 100 (2+) H (Neg-Trace) mg/dL Urine Glucose (UA) Negative (Negative) mg/dL Urine Ketones Negative (Negative) mg/dL Urine Blood Moderate (2+) H (Negative) Urine Nitrite Negative (Negative) Ur Leukocyte Esterase Large (3+) H (Negative) Urine RBC >20 H (0-2) /HPF Urine WBC >50 H (0-5) /HPF Urine WBC Clumps Present Ur Squamous Epith Cells 3-5 (0-2) /HPF Urine Bacteria None Seen (None Seen) Hyaline Casts 6-10 (0-2) /LPF Urine Yeast Present Influenza Type A (PCR) NEGATIVE (Negative) Influenza Type B (PCR) NEGATIVE (Negative) RSV RNA Qual (PCR) NEGATIVE (Negative) SARS-CoV-2 RNA (RT-PCR) NEGATIVE (Negative) Independent Interpretation I performed an independent interpretation of an: EKG and Plain X-Ray Interpretation: My interpretation of the patient's one-view chest x-ray is as follows: No acute disease My independent interpretation of the patient's 12 EKG done on 05/13/2024 at 20:02 hours is as follows: Normal sinus rhythm with a rate of 63, normal AL interval, QRS duration QTC interval, no ST segment elevation, no ST segment depression, no PACs, no PVCs, no significant T-wave abnormalities. Compared to previous EKG dated 10/02/2023 at 12:14 hours, no significant change. Radiology Impression Discussion of test interpretation with radiology: I have reviewed the radiologist's reading. Radiologist Impression: EXAMINATION: CT HEAD WITHOUT IV CONTRAST IMPRESSION: No acute intracranial abnormality. Electronically signed by: Merlin Fuentes MD 05/13/2024 12:34 PM EDT XR chest 1V IMPRESSION: No acute airspace disease. Electronically signed by: Mac Smith MD 05/13/2024 12:12 PM Chronic Conditions Patient?s care impacted by: Diabetes and Other (Hyperlipidemia, coronary artery disease) Discharge Plan Discharge Clinical Impression: Acute headache, Plantar fasciitis of left foot, Weakness Patient Disposition: Still a Patient Prescriptions: No Action (DME) lancets [OneTouch Delica Lancets] 33 gauge misc See Rx Instructions .ROUTE .MEDSUPPLY Qty: 200 10RF Rx Instructions: four times a day (DME) pen needle, diabetic [Pentips Pen Needle] 32 gauge x /32 needle See Rx Instructions .ROUTE .MEDSUPPLY Qty: 100 3RF Rx Instructions: As directed 3 TIMES A DAY insulin glargine U-300 conc [Toujeo SoloStar U-300 Insulin] 300 unit/mL (1.5 mL) insulin pen 15 unit subcut BEDTIME amlodipine [Norvasc] 5 mg tablet 5 mg PO BEDTIME gabapentin 300 mg capsule 300 mg PO BEDTIME carvedilol 6.25 mg tablet 6.25 mg PO BIDWM multivitamin Tablet 1 tab PO DAILY furosemide 20 mg tablet 20 mg PO Q OTHER DAY methenamine hippurate 1 gram tablet 1 g PO DAILY mirtazapine 15 mg tablet,disintegrating 15 mg PO BEDTIME insulin lispro 100 unit/mL insulin pen 15 unit subcut DAILY@1645 insulin lispro 100 unit/mL insulin pen 10 unit subcut BID@0745,1145 insulin glargine U-300 conc [Toujeo SoloStar U-300 Insulin] 300 unit/mL (1.5 mL) insulin pen 10 unit subcut DAILY@0900 doxazosin 4 mg tablet 4 mg PO BEDTIME ascorbic acid (vitamin C) 1,000 mg tablet 1,000 mg PO DAILY 90 Days Qty: 90 1RF finasteride 5 mg tablet 5 mg PO DAILY 90 Days Qty: 90 1RF Jardiance 25 mg tablet 25 mg PO DAILY Qty: 90 0RF (DME) OneTouch Verio test strips Strip See Rx Instructions .ROUTE .MEDSUPPLY Qty: 150 11RF Rx Instructions: 4 x/day (DME) blood-glucose meter Misc See Rx Instructions .ROUTE .MEDSUPPLY Qty: 1 0RF Rx Instructions: As directed 4x/day (DME) lancets [OneTouch UltraSoft 2 Lancet] 30 gauge misc See Rx Instructions .ROUTE .MEDSUPPLY Qty: 100 2RF Rx Instructions: use daily As directed to monitor blood sugars (DME) Dexcom G7 Sensor Device See Rx Instructions .ROUTE .MEDSUPPGilon [employer]ight Qty: 3 5RF Rx Instructions: Use daily As directed to monitor glucose. change q 10 days Print Language: Canadian
--- NOTE | 2024-05-13 11:39 | ECG_ITS ---
Test Reason : chest pain Blood Pressure : */* mmHG Vent. Rate : 63 BPM Atrial Rate : 63 BPM P-R Int : 152 ms QRS Dur : 66 ms QT Int : 410 ms P-R-T Axes : 34 87 91 degrees QTcB Int : 419 ms Normal sinus rhythm Normal ECG When compared with ECG of 02-Oct-2023 12:14, Sinus rhythm has replaced Junctional rhythm QRS axis Shifted left T wave inversion no longer evident in Anterior leads Referred By: Christopher Brandt Electronically Signed By: YENIFER AGUILAR MD
[2024-05-13] MEDS: Ketorolac Tromethamine 15 MG/ML VIAL IVPUSH (12:03)
[2024-05-13] MEDS: Metoclopramide HCl 10 MG/2 ML VIAL IVPUSH (12:04)
[2024-05-13] MEDS: diphenhydrAMINE HCL 50 MG/ML VIAL 25 MG IVPUSH (12:04)
[2024-05-13 12:18] LABS: MANUAL DIFF FLAG NO
[2024-05-13 12:22] LABS: Basophils Percent Auto 0.1 % (0-2); Eosinophils Absolute Auto 0.3 X10*3/uL (0.0-0.4); Eosinophils Percent Auto 3.8 % (0-4); Hematocrit 37.3 % (42.0-52.0); Hemoglobin 12.5 g/dl (14.0-18.0); Imm Gran Abs Auto 0.02 X10*3/uL (0.00-0.03); Imm Gran Pct Auto 0.3 % (0.0-0.4); Lymphocytes Absolute Auto 1.8 X10*3/uL (1.2-4.9); Lymphocytes Percent Auto 24.9 % (20-40); Mean Corpuscular HGB Conc 33.5 g/dl (31.0-36.0); Mean Corpuscular Volume 80.6 fL (80.0-98.0); Mean Platelet Volume 9.3 fL (9.4-12.4); Monocytes Absolute Auto 0.5 X10*3/uL (0.1-1.2); Monocytes Percent Auto 7.1 % (2-11); Neutrophils Absolute Auto 4.5 x10*3/uL (2.0-8.3); Neutrophils Percent Auto 63.8 % (45-73); Platelet Count 226 X10*3/uL (160-400); Red Blood Count 4.63 X10*6/uL (4.60-5.80); Red Cell Distribution Width 15.2 % (11.0-16.0)
[2024-05-13 12:27] LABS: INTERNATIONAL NORM RATIO 0.9 (0.9-1.1); Prothrombin Time 10.4 SEC (10.9-12.4)
[2024-05-13 12:30] LABS: Partial Thromboplastin Time 28.8 SEC (26.0-36.8)
[2024-05-13 12:43] LABS: B Type Natriuretic Peptide 27 pg/mL (<100)
[2024-05-13 12:50] LABS: Alanine Aminotransferase 7 U/L (0-40); Albumin Level 3.6 g/dL (3.5-5.0); Alkaline Phosphatase 83 U/L (39-117); Anion Gap 12 (12-20); Aspartate Amino Transferase 19 U/L (5-37); Bilirubin Total 0.4 mg/dL (0.0-1.0); Blood Urea Nitrogen 40 mg/dL (9-16); Calcium 9.1 mg/dL (8.4-10.2); Carbon Dioxide 19 mmol/L (22-29); Chloride 112 mmol/L (96-108); Creatinine Clr Calc Pharmacy 20.7; Estimated Glomerular Filt Rate 31; Glucose Random 198 mg/dL (60-115); Lipase 30 U/L (8-78); Magnesium 2.1 mg/dL (1.6-2.6); Potassium 4.2 mmol/L (3.3-5.1); Sodium 139 mmol/L (135-145); Total Protein 7.7 g/dL (6.5-8.0); Troponin-I High Sensitivity < 2.7 ng/L (<3.5-35.0)
[2024-05-13 12:59] LABS: Influenza A PCR NEGATIVE (Negative); Influenza B PCR NEGATIVE (Negative); Resp Syncy Virus RNA Qual PCR NEGATIVE (Negative); SARS COV2 PCR INHOUSE NEGATIVE (Negative)
--- NOTE | 2024-05-13 16:13 | MHC.CM.PN ---
This CM met with pt with the assistance of a japanese interpreter. Pt lives at home with his , states he doesn't have much help at home home, but he does receive [employer] services intermittently. Pt states he would like to go to rehab, PT evaluated and recommend STR. Pt states he would like to go to [facility], referral added, they cannot offer a bed. Pt was previously at [facility] [place] from 02/27-04/05, [facility] would accept pt back pending MDS. MDS completed and submitted.
--- NOTE | 2024-05-13 16:35 | PC.NURSE ---
Pt alert and oriented, breathing even and unlabored. Pt reporting no pain since medicated on arrival to ED, reporting feeling overall better. Requesting STR due to trouble ambulating and his is not home during the day. Uses urinal at bedside.
--- NOTE | 2024-05-13 16:51 | PC.NURSE ---
Plan: D/C to [facility] in morning for STR
--- NOTE | 2024-05-13 16:58 | PC.NURSE ---
Med rec completed by this RN using pts med list and asking pt questions. Provider updated to continue meds
[2024-05-13 18:08] LABS: Appearance Urine Turbid; Color Urine Yellow; Glucose Urine UA Negative (Negative); Leukocyte Esterase Urine Large (3+) (Negative); Nitrite Urine Negative (Negative); PH 5.5 (5.0-9.0); UMIC TRIGGER UACC YES; Urine Blood Moderate (2+) (Negative); Urine Ketones Negative (Negative); Urine Protein 100 (2+) mg/dL (Neg-Trace)
[2024-05-13 18:21] LABS: Bacteria Urine None Seen (None Seen); RBC Urine >20 /HPF (0-2); UACC Culture Trigger YES; WBC Clumps Urine Present; WBC Urine >50 /HPF (0-5)
[2024-05-13 18:28] LABS: Glucose, Whole Blood 267 mg/dL (60-115)
[2024-05-13] MEDS: Finasteride 5 MG TABLET PO (18:31)
[2024-05-13] MEDS: carvediloL 6.25 MG TABLET PO (18:31)
--- NOTE | 2024-05-13 18:31 | PC.NURSE ---
Pt ate his own dinner provided by family. Takes meds whole with no issues
--- NOTE | 2024-05-13 19:03 | PC.NURSE ---
assumed care of patient at 1900. report received from Jyoti FENTON
--- NOTE | 2024-05-13 20:34 | PHA.MEDREC ---
Addendum entered by Lizzie Prince RP 05/14/24 09:08: received list from [facility] pharmacy, confirmed doxazosin and constipation meds - pt no longer on jardiance. Left insulins as patient reported, will let provider know of changes. Original Note: Pharmacy Consult ? Medication Reconciliation Pharmacy has completed the medication reconciliation. Used an furrier designer to speak with patient. He is a poor historian. He brought in a medbox list from 02/11. Furosemide was hand written on the list as every other day (matches with claims). Jardiance was on the list but office notes from 01/2024 discussed stopping, last fill in December 2023. Used claims to confirm the rest. Patient reports Toujeo is 10 units in the morning and 15 units at bedtime. He also said lispro is 10u, 10u, and 15u. Left VM with family. Can have morning med rec tech/[facility] confirm med list with [facility] tomorrow.
[2024-05-13] MEDS: Mirtazapine 15 MG TABLET PO (21:26)
[2024-05-13] MEDS: amLODIPine Besylate 5 MG TABLET PO (21:26)
[2024-05-13] MEDS: Empagliflozin 25 MG TABLET PO (21:26)
[2024-05-13] MEDS: Gabapentin 300 MG CAPSULE PO (21:26)
--- NOTE | 2024-05-13 21:36 | PC.NURSE ---
pt medicated per mar with bedtime medications, vital signs updated. pt offers no current complaints. resting comfortably, call blum within reach. plan of care continues,
[2024-05-14] VITALS (8 sets, daily range): BP systolic 115–140; BP diastolic 45–61; PULSE 56–72; RESP 13–18; TEMP 36.2–36.7; O2SAT 95–97
[2024-05-14 04:49] LABS: Glucose, Whole Blood 271 mg/dL (60-115)
[2024-05-14] MEDS: carvediloL 6.25 MG TABLET PO ×2 (07:26→18:33)
[2024-05-14] MEDS: Insulin Lispro 100 UNIT/ML 3 ML VIAL SUBCUT ×4 (07:27→20:25)
[2024-05-14 07:56] LABS: Glucose, Whole Blood 151 mg/dL (60-115)
[2024-05-14] MEDS: Finasteride 5 MG TABLET PO (08:36)
[2024-05-14] MEDS: Insulin Glargine,Hum.rec.anlog 100 UNIT/ML 10 ML VIAL 8 UNIT SUBCUT (08:36)
[2024-05-14] MEDS: Ascorbic Acid 500 MG TABLET 1000 MG PO (08:36)
[2024-05-14] MEDS: Furosemide 20 MG TABLET PO (08:36)
[2024-05-14] MEDS: Multivitamin TABLET 1 TAB PO (08:36)
[2024-05-14] MEDS: Methenamine Hippurate 1 GM TABLET PO (10:06)
[2024-05-14] MEDS: Empagliflozin 25 MG TABLET PO (10:06)
--- NOTE | 2024-05-14 10:11 | MHC.CM.ED ---
Patient remains in ER. Received notification from Elaina of [facility] that she was only waiting for [facility] PASRR Level 1. Rosa from [facility] made aware. Patient and daughter, Arianne aware. Continue to monitor for d/c needs.
--- NOTE | 2024-05-14 11:32 | PC.NURSE ---
pt to overflow via counselor education professor trasnport, verbal nurse to nurse report given by previous RN Glenny
[2024-05-14 11:48] LABS: Glucose, Whole Blood 157 mg/dL (60-115)
[2024-05-14] MEDS: Docusate Sodium 100 MG CAPSULE PO ×2 (12:32→21:08)
[2024-05-14] MEDS: Gabapentin 300 MG CAPSULE PO (20:25)
[2024-05-14] MEDS: Mirtazapine 15 MG TABLET PO (20:37)
[2024-05-14] MEDS: amLODIPine Besylate 5 MG TABLET PO (21:07)
[2024-05-14] MEDS: Doxazosin Mesylate 2 MG TABLET 4 MG PO (23:00)
[2024-05-15 04:20] LABS: Glucose, Whole Blood 265 mg/dL (60-115)
[2024-05-15 04:20] LABS: Glucose, Whole Blood 190 mg/dL (60-115)
[2024-05-15 06:00] VITALS: BP 112/58; PULSE 68; RESP 16; TEMP 36.3; O2SAT 96
[2024-05-15 08:10] LABS: Glucose, Whole Blood 220 mg/dL (60-115)
[2024-05-15] MEDS: Empagliflozin 25 MG TABLET PO (08:30)
[2024-05-15] MEDS: Methenamine Hippurate 1 GM TABLET PO (08:30)
[2024-05-15] MEDS: Ascorbic Acid 500 MG TABLET 1000 MG PO (08:31)
[2024-05-15] MEDS: Insulin Glargine,Hum.rec.anlog 100 UNIT/ML 10 ML VIAL 8 UNIT SUBCUT (08:31)
[2024-05-15] MEDS: Finasteride 5 MG TABLET PO (08:31)
[2024-05-15] MEDS: Docusate Sodium 100 MG CAPSULE PO (08:31)
[2024-05-15] MEDS: Multivitamin TABLET 1 TAB PO (08:31)
[2024-05-15 08:32] VITALS: BP 109/46; PULSE 66
[2024-05-15] MEDS: carvediloL 6.25 MG TABLET PO (08:32)
--- NOTE | 2024-05-15 08:56 | MHC.CM.ED ---
[facility] Patient can leave for [facility] at 12pm. Alton LARES booked. [facility] with chart. Patient, daughter Luda Acuña RN and Garett SANCHEZ aware. Continue to monitor for d/c needs.
[2024-05-15 12:18] VITALS: BP 109/46; PULSE 66; RESP 16; TEMP 36.8; O2SAT 99
== END 2024-05-15 13:23 | disposition other institution (70) ==
PROVIDERS: Emergency Provider Emergency Medicine Emergency Medical Services; PCP Family Medicine
DX: R51.9 Headache, unspecified (principal); M72.2 Plantar fascial fibromatosis; R53.1 Weakness; E11.22 Type 2 diabetes mellitus with diabetic chronic kidney disease; I12.9 Hypertensive chronic kidney disease with stage 1 through stage 4 chronic kidney disease, or unspecified chronic kidney disease; N18.30 Chronic kidney disease, stage 3 unspecified; E78.5 Hyperlipidemia, unspecified; R07.9 Chest pain, unspecified; R06.02 Shortness of breath; R30.0 Dysuria; R35.0 Frequency of micturition; M79.672 Pain in left foot; D50.9 Iron deficiency anemia, unspecified
CPT/HCPCS: 0241U; 36415; 70450; 71045; 80053; 81001; 82947; 83690; 83735; 83880; 84484; 85025; 85610; 85730; 87086; 87088; 93005; 96374; 96375; 97162; 99285; J1200; J1885; J2765

== ENCOUNTER → 2024-05-13 11:35 | Outpatient (BNV) | payer MEDICARE, MEDICAID, SELFPAY | PROVIDERS: Emergency Provider Emergency Medicine Emergency Medical Services; PCP Family Medicine; Visit Provider Radiology Diagnostic Radiology | DX: R51.9 Headache, unspecified (principal); R42 Dizziness and giddiness; I69.354 Hemiplegia and hemiparesis following cerebral infarction affecting left non-dominant side; R07.9 Chest pain, unspecified | CPT/HCPCS: 70450 ==

== ENCOUNTER → 2024-05-13 11:39 | Outpatient (BNV) | payer MEDICARE, MEDICAID, SELFPAY | PROVIDERS: Emergency Provider Emergency Medicine Emergency Medical Services; PCP Family Medicine; Visit Provider Internal Medicine Cardiovascular Disease | DX: R07.9 Chest pain, unspecified (principal) | CPT/HCPCS: 93010 ==